=== PATIENT | female | born 1990 | race Caucasian/White ===

== ENCOUNTER 2016-03-22 13:47 | Emergency (ER) | payer OTHER ==
[2016-03-22 13:53] VITALS: TEMP 98.8; BMI 31.9
--- NOTE | 2016-03-22 16:33 | PDOC ---
History of Present Illness - General Chief Complaint: Chest Pain Stated Complaint: CHEST PAIN, ABD PAIN, SOB Time Seen by Provider: 03/22/16 14:57 History Source: Patient Exam Limitations: No Limitations - History of Present Illness Travel History: No Initial Comments: 03/22/16 16:33 25-year-old female presents to the ED with complaints of right upper quadrant pain associated with nausea dysuria, diarrhea, fever or chills. Patient states her glucose has been in the 200s and is unsure if this is pancreatitis versus a virus. Timing/Duration: reports: intermittent Quality: reports: moderate, cramping Abdominal Pain Onset Location: reports: RUQ Pain Radiation: reports: no radiation Activities at Onset: reports: none Aggravating Factors: improves with: Eating Alleviating Factors: improves with: None Past History - Past Medical History Allergies/Adverse Reactions: Allergies Allergy/AdvReac Type Severity Reaction Status Date / Time No Known Drug Allergies Allergy Verified 03/22/16 13:53 SEAFOOD Allergy Severe ANAPHYLAXIS Uncoded 03/22/16 13:53 Home Medications: Ambulatory Orders Albuterol Sulfate Inhaler - [Ventolin Hfa Inhaler -] 1 puff IH Q8H 03/22/16 Insulin Glargine,Hum.rec.anlog [Lantus Solostar PEN (NF)] 26 unit SQ DAILY 03/22 Insulin Lispro Protamin/Lispro [Humalog Mix 75-25 Kwikpen] 50 unit SQ BID Levothyroxine Sodium [Synthroid] 88 mcg PO DAILY 03/22/16 [place] Carbonate [Eskalith -] 600 mg PO BID 03/22/16 Metronidazole [Flagyl -] 500 mg PO TID 03/22/16 Phenytoin Na Extended [Dilantin -] 100 mg PO BID 03/22/16 Anemia: No Asthma: Yes Cancer: No Cardiac Disorders: Yes (RAPID HEARTBEAT HX) CVA: No COPD: No CHF: Yes Dementia: No Diabetes: Yes GI Disorders: Yes (h/o PANCREATITIS.) Disorders: No HTN: No Hypercholesterolemia: No Liver Disease: No Psychiatric Problems: Yes (anxiety, bipolar) Suicide Attempt (Hx): No Seizures: Yes Thyroid Disease: Yes - Surgical History Abdominal Surgery: No Appendectomy: No Cardiac Surgery: No Cholecystectomy: No Lung Surgery: No Neurologic Surgery: No Orthopedic Surgery: No - Family Disease History Family Disease History: Heart Disease: Grandparents - Reproductive History (#): 1 Para: 0 Cervical CA: No Dysfunctional Uterine Bleeding: No Ectopic : No Endometrial CA: No Polycystic Ovaries: No Tubal Ligation: No Spontaneous : 1 - Immunization History Immunization Up to Date: Yes - Psycho/Social/Smoking Cessation Hx Anxiety: Yes Suicidal Ideation: No Smoking Status: Yes Smoking History: Never smoked Have you smoked in the past 12 months: No Number of Cigarettes Smoked Daily: 2 If you are a former smoker, when did you quit?: 2011 'Breaking Loose' booklet given: 03/11/12 Hx Alcohol Use: No Drug/Substance Use Hx: No Substance Use Type: None Hx Substance Use Treatment: No Patient Lives Alone: No Lives with/in: parents Abd/GI Specific PMHX - Complaint Specific PMHX Pancreatitis: Yes Review of Systems - Review of Systems Able to Perform ROS?: Yes Constitutional: No: Symptoms Reported HEENTM: No: Symptoms Reported Respiratory: No: Symptoms reported Cardiac (ROS): No: Symptoms Reported ABD/GI: Yes: Abdominal cramping : No: Symptoms Reported Musculoskeletal: No: Symptoms Reported Integumentary: No: Symptoms Reported Neurological: No: Symptoms reported Endocrine: No: Symptoms Reported Hematologic/Lymphatic: No: Symptoms Reported *Physical Exam - Vital Signs Last Vital Signs Temp Pulse Resp BP Pulse Ox 98.8 F 90 20 114/65 98 03/22/16 13:51 03/22/16 13:51 03/22/16 13:51 03/22/16 13:51 03/22/16 13:51 - Physical Exam General Appearance: Yes: Nourished, Appropriately Dressed. No: Apparent Distress HEENT: positive: EOMI, MARISELA. negative: Pale Conjunctivae Neck: positive: Supple Respiratory/Chest: positive: Lungs Clear, Normal Breath Sounds. negative: Respiratory Distress, Accessory Muscle Use Cardiovascular: positive: Regular Rhythm, Regular Rate. negative: Murmur Gastrointestinal/Abdominal: positive: Soft, Tenderness (ruq tenderness) Musculoskeletal: negative: CVA Tenderness Extremity: positive: Normal Capillary Refill. negative: Pedal Edema Integumentary: positive: Normal Color, Warm, Moist Neurologic: positive: Normal Mood/Affect, Motor Strength 5/5 (ambulatory) ED Treatment Course - LABORATORY CBC & Chemistry Diagram: 03/22/16 16:20 03/22/16 16:20 Medical Decision Making - Medical Decision Making 03/22/16 16:29 Patient with right upper quadrant pain without fever, chills, nausea, change in urine pattern, or diarrhea. Patient has history of pancreatitis and feels in sleepy versus a virus. Patient ordered for labs include a CBC, comp, lipase, urine, urine . Patient is also requesting to eat at this time 03/22/16 17:00 Selected Entries 10/26/15 17:38 Temperature 98.3 F Pulse Rate 90 Respiratory 18 Rate Blood Pressure 109/72 O2 Sat by Pulse 99 Oximetry (%) Laboratory Tests 03/22/16 16:45 Urine Protein Negative Urine Blood 3+ H Ur Leukocyte Esterase Negative Urine HCG, Qual Negative Laboratory Tests 03/22/16 16:20 WBC 9.9 Hgb 13.3 Hct 41.5 Neutrophils % 68.8 Pt is currently menstrating Laboratory Tests 03/22/16 16:20 Sodium 134 L Chloride 102 Carbon Dioxide 25 Anion Gap 7 L BUN 13 Creatinine 0.6 Random Glucose 338 H* Calcium 9.1 Magnesium 1.9 AST 8 L D ALT 16 Alkaline Phosphatase 105 Total Protein 7.5 Albumin 3.4 Lipase 609 H Pt ate and requesting to leave to get her daughter. I explained to pt the elevated lipase and glucose but is refusing. Pt is aox 3 and cognitive of her decision made. Pt will sign AMA forms. *DC/Admit/Observation/Transfer Diagnosis at time of Disposition: Abdominal pain, Elevated glucose level, Elevated lipase - Discharge Dispostion Disposition: AGAINST MEDICAL ADVICE Condition at time of disposition: Unchanged/Unknown - Patient Instructions Printed Discharge Instructions: DI for Abdominal Pain-Adult, DI for Hyperglycemia -- Adult Additional Instructions: Please take your medications routinely and avoid spicy greasy food. Please follow-up with your PCP and discuss today's visit. Return to the emergency department if your symptoms worsen
--- NOTE | 2016-03-22 16:45 | PDOC ---
*Physical Exam - Vital Signs Last Vital Signs Temp Pulse Resp BP Pulse Ox 98.8 F 90 20 114/65 98 03/22/16 13:51 03/22/16 13:51 03/22/16 13:51 03/22/16 13:51 03/22/16 13:51 ED Treatment Course - LABORATORY CBC & Chemistry Diagram: 03/22/16 16:20 03/22/16 16:20 Medical Decision Making - Medical Decision Making 03/22/16 16:45 Pt seen by Midlevel Provider under my direct supervision Pt interviewed and examined Ancillary studies reviewed I agree with plan as outlined by Midlevel Provider *DC/Admit/Observation/Transfer Diagnosis at time of Disposition: Abdominal pain, Elevated glucose level, Elevated lipase - Discharge Dispostion Disposition: AGAINST MEDICAL ADVICE Condition at time of disposition: Unchanged/Unknown - Patient Instructions Printed Discharge Instructions: DI for Abdominal Pain-Adult, DI for Hyperglycemia -- Adult Additional Instructions: Please take your medications routinely and avoid spicy greasy food. Please follow-up with your PCP and discuss today's visit. Return to the emergency department if your symptoms worsen
[2016-03-22 16:48] LABS: BASOPHIL 0.7 % (0-2.0); EOSINOPHIL 2.1 % (0-4.5); MCH 25.9 pg (25.7-33.7); MEAN CELL VOLUME 80.9 fl (80-96); MEAN PLT VOLUME 9.4 fl (7.5-11.1); NEUTROPHILS 68.8 % (42.8-82.8); PLATELET COUNT 245 K/MM3 (134-434); RDW 13.1 % (11.6-15.6); WHITE BLOOD COUNT 9.9 K/mm3 (4.0-10.0)
[2016-03-22 16:54] LABS: URINE APPEARANCE CLEAR; URINE BILIRUBIN NEGATIVE (NEGATIVE); URINE COLOR STRAW; URINE GLUCOSE (UA) 3+ (NEGATIVE); URINE KETONE NEGATIVE (NEGATIVE); URINE LEUK ESTERASE NEGATIVE (NEGATIVE); URINE NITRITE NEGATIVE (NEGATIVE); URINE PROTEIN NEGATIVE (NEGATIVE); URINE UROBILINOGEN NEGATIVE E.U./dl (0.2-1.0)
[2016-03-22 16:58] LABS: URINE BLOOD 3+ (NEGATIVE)
[2016-03-22 16:59] LABS: URINE MUCUS RARE; URINE RBC 37 /hpf (0-3); URINE WBC 6 /hpf (3-5)
[2016-03-22 17:11] LABS: ALBUMIN 3.4 g/dl (3.4-5.0); ANION GAP 7 (8-16); CALCIUM 9.1 mg/dL (8.5-10.1); CO2 25 mmol/L (21-32); CREATININE 0.6 mg/dL (0.55-1.02); MAGNESIUM 1.9 mg/dL (1.8-2.4); SGOT/AST 8 U/L (15-37); SGPT/ALT 16 U/L (12-78)
[2016-03-22 17:12] LABS: ALK PHOS 105 U/L (45-117); BILIRUBIN,TOTAL 0.4 mg/dL (0.2-1.0); TOT PROT 7.5 g/dl (6.4-8.2)
[2016-03-22 17:20] LABS: GLUCOSE,RANDOM 338 mg/dL (74-106)
[2016-03-22 18:10] VITALS: BP 132/74; PULSE 91
== END 2016-03-22 18:09 | disposition left against medical advice (07) ==
LOC: JER 13:47
DX: E10.65 Type 1 diabetes mellitus with hyperglycemia (principal); Z79.4 Long term (current) use of insulin; R74.8 Abnormal levels of other serum enzymes; F41.9 Anxiety disorder, unspecified; F31.9 Bipolar disorder, unspecified; Z86.79 Personal history of other diseases of the circulatory system
CPT/HCPCS: 36415; 80053; 81003; 81015; 83690; 83735; 84703; 85025; 87086; 99283-25

== ENCOUNTER 2016-03-30 14:43 | Emergency (ER) | payer OTHER ==
[2016-03-30 14:53] VITALS: TEMP 99; BMI 28.8
[2016-03-30] MEDS ORDERED: SODIUM CHLORIDE 1,000 ML IV STA (15:11)
[2016-03-30] MEDS ORDERED: ONDANSETRON 4 MG/2 ML VIAL IVPUSH ONE (15:11)
[2016-03-30] MEDS ORDERED: ONDANSETRON 4 MG/2 ML VIAL ONE (15:15)
--- NOTE | 2016-03-30 15:18 | PDOC ---
History of Present Illness - General Chief Complaint: Pain Stated Complaint: Vomiting Time Seen by Provider: 03/30/16 14:57 History Source: Patient - History of Present Illness Timing/Duration: reports: constant Pain Radiation: reports: no radiation Past History - Past Medical History Allergies/Adverse Reactions: Allergies Allergy/AdvReac Type Severity Reaction Status Date / Time No Known Drug Allergies Allergy Verified 03/30/16 14:46 SEAFOOD Allergy Severe ANAPHYLAXIS Uncoded 03/30/16 14:46 Home Medications: Ambulatory Orders Albuterol Sulfate Inhaler - [Ventolin Hfa Inhaler -] 1 puff IH Q8H 03/22/16 Insulin Glargine,Hum.rec.anlog [Lantus Solostar PEN (NF)] 26 unit SQ DAILY 03/22 Insulin Lispro Protamin/Lispro [Humalog Mix 75-25 Kwikpen] 50 unit SQ BID Levothyroxine Sodium [Synthroid] 88 mcg PO DAILY 03/22/16 [place] Carbonate [Eskalith -] 600 mg PO BID 03/22/16 Metronidazole [Flagyl -] 500 mg PO TID 03/22/16 Phenytoin Na Extended [Dilantin -] 100 mg PO BID 03/22/16 Anemia: No Asthma: Yes Cancer: No Cardiac Disorders: Yes (RAPID HEARTBEAT HX) CVA: No COPD: No CHF: Yes Dementia: No Diabetes: Yes GI Disorders: Yes (h/o PANCREATITIS.) Disorders: No HTN: No Hypercholesterolemia: No Liver Disease: No Psychiatric Problems: Yes (anxiety, bipolar) Suicide Attempt (Hx): No Seizures: Yes Thyroid Disease: Yes - Surgical History Abdominal Surgery: No Appendectomy: No Cardiac Surgery: No Cholecystectomy: No Lung Surgery: No Neurologic Surgery: No Orthopedic Surgery: No - Family Disease History Family Disease History: Heart Disease: Grandparents - Reproductive History (#): 1 Para: 0 Cervical CA: No Dysfunctional Uterine Bleeding: No Ectopic : No Endometrial CA: No Polycystic Ovaries: No Tubal Ligation: No Spontaneous : 1 - Immunization History Immunization Up to Date: Yes - Psycho/Social/Smoking Cessation Hx Anxiety: Yes Suicidal Ideation: Yes Smoking Status: Yes Smoking History: Never smoked Have you smoked in the past 12 months: No Number of Cigarettes Smoked Daily: 2 If you are a former smoker, when did you quit?: 2011 Information on smoking cessation initiated: No 'Breaking Loose' booklet given: 03/11/12 Hx Alcohol Use: No Drug/Substance Use Hx: No Substance Use Type: None Hx Substance Use Treatment: No Abd/GI Specific PMHX - Complaint Specific PMHX Pancreatitis: Yes Review of Systems - Review of Systems Constitutional: No: Chills, Fever Respiratory: No: Shortness of Breath Cardiac (ROS): No: Chest Pain ABD/GI: Yes: Nausea, Vomiting. No: Constipated, Diarrhea : No: Dysuria Neurological: Yes: Seizure *Physical Exam - Vital Signs Last Vital Signs Temp Pulse Resp BP Pulse Ox 99 F 100 H 18 97/73 100 03/30/16 14:47 03/30/16 14:47 03/30/16 14:47 03/30/16 14:47 03/30/16 14:47 - Physical Exam General Appearance: Yes: Appropriately Dressed. No: Apparent Distress HEENT: positive: Normal Voice Neck: positive: Supple Respiratory/Chest: positive: Lungs Clear, Normal Breath Sounds. negative: Respiratory Distress Cardiovascular: positive: Regular Rate, S1, S2 Gastrointestinal/Abdominal: positive: Normal Bowel Sounds, Tender (minimal ttp to epigastrium, no ttp over RUQ), Soft. negative: Distended, Guarding Musculoskeletal: negative: CVA Tenderness Integumentary: positive: Dry, Warm Neurologic: positive: Fully Oriented, Alert, Abnormal Cranial NS ED Treatment Course - LABORATORY CBC & Chemistry Diagram: 03/30/16 15:30 03/30/16 15:30 Medical Decision Making - Medical Decision Making 03/30/16 15:14 25-year-old female, depression, bipolar, morbidly obese, insulin-dependent diabetes, seizures on meds, pancreatitis, presenting with multiple complaints today including seizure this a.m. typical of her usual seizures. Patient's states seizure happened while she was still in bed this am and woke up with urinary incontinence. Seizure was not witnessed. Patient states that at some point after seizure she began having multiple episodes of nausea and vomiting that is not consistent with her postictal phase. Denies hematochezia. Also complaining of vague abdominal pain and is unsure if the pain is similar to her pancreatitis. No acute change in bowel movements, dysuria, fever or chills. See exam Breakthrough seizure On dilantin and f/u with outside neuro -Basic labs including dilantin lvl N/v w/ upper abd pain Of note, pt was seen in ED ~9 days ago for abd pain, found to have lipase >600 but left AMA, also had BG>300 Tachycardia and hypotensive in ED, with minimal tenderness to palpation to epigastrium, non-tender over right upper quadrant -basic labs -zofran -IVF -reassess 03/30/16 15:22 03/30/16 17:06 Lipase greater than 700. Patient refusing to be admitted despite being aware of medical risks. Also told that that her Dilantin level is less than 2.5. Patient insists that she has been taking her medication as prescribed. Understands the risk of seizures if she is not compliant. Will discharge AGAINST MEDICAL ADVICE with strict instructions to follow-up with her doctors, including her neurologist. Patient aware that she can return to ED at any point to continue evaluation/admission. Vitals improved w/ IVF 03/30/16 17:11 *DC/Admit/Observation/Transfer Diagnosis at time of Disposition: Seizure disorder Pancreatitis, acute Qualifiers: Pancreatitis type: unspecified pancreatitis type Qualified Code(s): K85.9 - Acute pancreatitis, unspecified - Discharge Dispostion Disposition: AGAINST MEDICAL ADVICE Condition at time of disposition: Fair - Referrals Referrals: Mellisa Richardson MD [Primary Care Provider] - - Patient Instructions Printed Discharge Instructions: Acute Pancreatitis Additional Instructions: You have signed out AGAINST MEDICAL ADVICE and refused admission. You are aware that you can return to ER at any point to continue evaluation. Continue to take her medications as directed and follow-up with your doctors
[2016-03-30 15:43] LABS: BASOPHIL 0.9 % (0-2.0); EOSINOPHIL 2.4 % (0-4.5); MCH 26.3 pg (25.7-33.7); MCHC 32.7 g/dl (32.0-36.0); MEAN CELL VOLUME 80.3 fl (80-96); MEAN PLT VOLUME 8.3 fl (7.5-11.1); NEUTROPHILS 64.6 % (42.8-82.8); PLATELET COUNT 258 K/MM3 (134-434); RDW 13.1 % (11.6-15.6); WHITE BLOOD COUNT 9.9 K/mm3 (4.0-10.0)
[2016-03-30 16:17] LABS: ALBUMIN 3.4 g/dl (3.4-5.0); ALK PHOS 100 U/L (45-117); ANION GAP 8 (8-16); BILIRUBIN,TOTAL 0.3 mg/dL (0.2-1.0); CALCIUM 9.3 mg/dL (8.5-10.1); CO2 27 mmol/L (21-32); CREATININE 0.6 mg/dL (0.55-1.02); GLUCOSE,RANDOM 238 mg/dL (74-106); SGOT/AST 15 U/L (15-37); SGPT/ALT 20 U/L (12-78); TOT PROT 7.4 g/dl (6.4-8.2)
[2016-03-30 17:14] VITALS: BP 117/79; PULSE 78
== END 2016-03-30 17:47 | disposition left against medical advice (07) ==
LOC: JER 14:43
PROC: 3E033GC Introduction of Other Therapeutic Substance into Peripheral Vein, Percutaneous Approach (ICD-10-PCS; principal; 2016-03-30)
DX: K85.80 Other acute pancreatitis without necrosis or infection (principal); G40.909 Epilepsy, unspecified, not intractable, without status epilepticus; E10.9 Type 1 diabetes mellitus without complications; Z79.4 Long term (current) use of insulin; F31.89 Other bipolar disorder
CPT/HCPCS: 36415; 80053; 80185; 83605; 83690; 85025; 96374; 99283-25

== ENCOUNTER 2016-04-09 18:58 | Emergency (ER) | payer OTHER ==
[2016-04-09 19:23] VITALS: BP 103/63; PULSE 84; TEMP 98; BMI 33.1
== END 2016-04-09 20:23 | disposition left against medical advice (07) ==
LOC: JERFT 18:58 → JER 18:58 → JERFT 20:23
DX: Z53.21 Procedure and treatment not carried out due to patient leaving prior to being seen by health care provider (principal)
CPT/HCPCS: 99281-25

== ENCOUNTER 2016-04-12 14:14 | Emergency (ER) | payer OTHER ==
[2016-04-12 14:31] VITALS: BP 115/46; PULSE 91; TEMP 98; BMI 33.1
--- NOTE | 2016-04-12 15:23 | PDOC ---
History of Present Illness <Alvin Moyer - Last Filed: 04/12/16 15:21> - History of Present Illness Initial Comments: 04/12/16 15:34 The patient is a 25 year old female with a past medical hx of asthma, epilepsy ( on Dilantin) who presents to the ED for evaluation of a seizure today. The patient states she has been compliant with her Dilantin. She states she feels weak after the seizure episode and came to the ED for further evaluation. The patient denies chest pain, SOB The patient denies fever, chills The patient denies nausea, vomiting, diarrhea Allergies:NKDA PCP: Dr. Trey Richardson Social: No toxic habits reported Surgical: None reported <Perla Lebron - Last Filed: 04/12/16 16:53> <Blaine Mandel - Last Filed: 04/12/16 19:29> - General Chief Complaint: Seizure Stated Complaint: SEIZURE Past History - Past Medical History Anemia: No Asthma: Yes Cancer: No Cardiac Disorders: Yes (RAPID HEARTBEAT HX) CVA: No COPD: No CHF: Yes Dementia: No Diabetes: Yes GI Disorders: Yes (h/o PANCREATITIS.) Disorders: No HTN: No Hypercholesterolemia: No Liver Disease: No Psychiatric Problems: Yes (anxiety, bipolar) Suicide Attempt (Hx): No Seizures: Yes Thyroid Disease: Yes - Surgical History Abdominal Surgery: No Appendectomy: No Cardiac Surgery: No Cholecystectomy: No Lung Surgery: No Neurologic Surgery: No Orthopedic Surgery: No - Family Disease History Family Disease History: Heart Disease: Grandparents - Reproductive History (#): 1 Para: 0 Cervical CA: No Dysfunctional Uterine Bleeding: No Ectopic : No Endometrial CA: No Polycystic Ovaries: No Therapeutic (s) & number: No Tubal Ligation: No Spontaneous : 1 - Immunization History Immunization Up to Date: Yes - Psycho/Social/Smoking Cessation Hx Anxiety: Yes Suicidal Ideation: No Smoking Status: Yes Smoking History: Former smoker Have you smoked in the past 12 months: No Number of Cigarettes Smoked Daily: 0 If you are a former smoker, when did you quit?: 2011 Information on smoking cessation initiated: No 'Breaking Loose' booklet given: 03/11/12 Hx Alcohol Use: No Drug/Substance Use Hx: No Substance Use Type: None Hx Substance Use Treatment: No <Alvin Moyer - Last Filed: 04/12/16 15:21> <Perla Lebron - Last Filed: 04/12/16 16:53> <MinisterioBlaine - Last Filed: 04/12/16 19:29> - Past Medical History Allergies/Adverse Reactions: Allergies Allergy/AdvReac Type Severity Reaction Status Date / Time No Known Drug Allergies Allergy Verified 04/12/16 14:27 SEAFOOD Allergy Severe ANAPHYLAXIS Uncoded 04/12/16 14:27 Home Medications: Ambulatory Orders Albuterol Sulfate Inhaler - [Ventolin Hfa Inhaler -] 1 puff IH Q8H 03/22/16 Insulin Glargine,Hum.rec.anlog [Lantus Solostar PEN (NF)] 26 unit SQ DAILY 03/22 Insulin Lispro Protamin/Lispro [Humalog Mix 75-25 Kwikpen] 50 unit SQ BID Levothyroxine Sodium [Synthroid] 88 mcg PO DAILY 03/22/16 [place] Carbonate [Eskalith -] 600 mg PO BID 03/22/16 Phenytoin Na Extended [Dilantin -] 100 mg PO BID 03/22/16 Review of Systems - Review of Systems Able to Perform ROS?: Yes Comments:: 04/12/16 15:35 CONSTITUTIONAL: +Weakness. Absent: fever, chills, diaphoresis, malaise, loss of appetite HEENT: Absent: rhinorrhea, nasal congestion, throat pain, throat swelling, difficulty swallowing, mouth swelling, ear pain, eye pain, visual Changes CARDIOVASCULAR: Absent: chest pain, syncope, palpitations, irregular heart rate, lightheadedness , peripheral edema RESPIRATORY: Absent: cough, shortness of breath, dyspnea with exertion, orthopnea, wheezing, stridor, hemoptysis GASTROINTESTINAL: Absent: abdominal pain, abdominal distension, nausea, vomiting, diarrhea, constipation, melena, hematochezia GENITOURINARY: Absent: dysuria, frequency, urgency, hesitancy, hematuria, flank pain, genital pain MUSCULOSKELETAL: Absent: myalgia, arthralgia, joint swelling SKIN: Absent: rash, itching, pallor HEMATOLOGIC/IMMUNOLOGIC: Absent: easy bleeding, easy bruising, lymphadenopathy, frequent infections ENDOCRINE: Absent: unexplained weight gain, unexplained weight loss, heat intolerance, cold intolerance NEUROLOGIC: Absent: headache, focal weakness or paresthesias, dizziness, unsteady gait, seizure, mental status changes, bladder or bowel incontinence PSYCHIATRIC: Absent: anxiety, depression, suicidal or homicidal ideation, hallucinations. <Perla Lebron - Last Filed: 04/12/16 16:53> *Physical Exam - Vital Signs Last Vital Signs Temp Pulse Resp BP Pulse Ox 98 F 91 H 18 115/46 97 04/12/16 14:28 04/12/16 14:28 04/12/16 14:28 04/12/16 14:28 04/12/16 14:28 <Alvin Moyer - Last Filed: 04/12/16 15:21> - Vital Signs Last Vital Signs Temp Pulse Resp BP Pulse Ox 98 F 91 H 18 115/46 97 04/12/16 14:28 04/12/16 14:28 04/12/16 14:28 04/12/16 14:28 04/12/16 14:28 - Physical Exam Comments: 04/12/16 15:36 GENERAL: Well developed, well nourished. Awake and alert. In no acute distress. HEENT: Normocephalic, atraumatic. PERRLA, EOMI. No conjunctival pallor. Sclera are non- icteric. Moist mucous membranes. Oropharynx is clear. NECK: Supple. Full ROM. No JVD. Carotid pulses 2+ and symmetric, without bruits. No thyromegaly. No lymphadenopathy. CARDIOVASCULAR: Regular rate and rhythm. No murmurs, rubs, or gallops. Distal pulses are 2+ and symmetric. PULMONARY: No evidence of respiratory distress. Lungs clear to auscultation bilaterally. No wheezing, rales or rhonchi. ABDOMINAL: Soft. Non-tender. Non-distended. No rebound or guarding. No organomegaly. Normoactive bowel sounds. MUSCULOSKELETAL Normal range of motion at all joints. No bony deformities or tenderness. No CVA tenderness. EXTREMITIES: No cyanosis. No clubbing. No edema. No calf tenderness. SKIN: Warm and dry. Normal capillary refill. No rashes. No jaundice. NEUROLOGICAL: Alert, awake, appropriate. Cranial nerves 2-12 intact. No deficits to light touch and temperature in face, upper extremities and lower extremities. No motor deficits in the in face, upper extremities and lower extremities.Normal speech. PSYCHIATRIC: Cooperative. Good eye contact. Appropriate mood and affect. <Perla Lebron - Last Filed: 04/12/16 16:53> - Vital Signs Last Vital Signs Temp Pulse Resp BP Pulse Ox 98 F 91 H 18 115/46 97 04/12/16 14:28 04/12/16 14:28 04/12/16 14:28 04/12/16 14:28 04/12/16 14:28 <Blaine Mandel - Last Filed: 04/12/16 19:29> ED Treatment Course - LABORATORY CBC & Chemistry Diagram: 04/12/16 16:06 04/12/16 16:06 <FavioRui caceresPerla - Last Filed: 04/12/16 16:53> - LABORATORY CBC & Chemistry Diagram: 04/12/16 16:06 04/12/16 16:06 - ADDITIONAL ORDERS Additional order review: Laboratory Results 04/12/16 04/12/16 04/12/16 16:10 16:06 16:06 Sodium 134 L Potassium 3.8 Chloride 97 L Carbon Dioxide 25 Anion Gap 12 BUN 12 D Creatinine 0.7 Creat Clearance w eGFR > 60 Random Glucose 431 H* D Calcium 10.0 Total Bilirubin 0.5 D AST 6 L D ALT 14 D Alkaline Phosphatase 109 Total Protein 8.1 Albumin 3.8 Serum , Qual Urine Color Urine Appearance Urine pH Ur Specific [place] Urine Protein Urine Glucose (UA) Urine Ketones Urine Blood Urine Nitrite Urine Bilirubin Urine Urobilinogen Ur Leukocyte Esterase Opiates Screen Negative Methadone Screen Negative Barbiturate Screen Negative Phenytoin < 2.5 L Phencyclidine Screen Negative Ur Amphetamines Screen Negative MDMA (Ecstasy) Screen Negative Benzodiazepines Screen Negative Cocaine Screen Negative U Marijuana (THC) Screen Negative Alcohol, Quantitative < 5.0 04/12/16 16:06 Sodium Potassium Chloride Carbon Dioxide Anion Gap BUN Creatinine Creat Clearance w eGFR Random Glucose Calcium Total Bilirubin AST ALT Alkaline Phosphatase Total Protein Albumin Serum , Qual Negative Urine Color Straw Urine Appearance Clear Urine pH 6.0 Ur Specific [place] 1.021 Urine Protein Negative Urine Glucose (UA) 3+ H Urine Ketones Trace H Urine Blood Negative Urine Nitrite Negative Urine Bilirubin Negative Urine Urobilinogen Negative Ur Leukocyte Esterase Negative Opiates Screen Methadone Screen Barbiturate Screen Phenytoin Phencyclidine Screen Ur Amphetamines Screen MDMA (Ecstasy) Screen Benzodiazepines Screen Cocaine Screen U Marijuana (THC) Screen Alcohol, Quantitative 04/12/16 16:06 RBC 5.34 H MCV 80.3 MCHC 33.1 RDW 13.7 MPV 8.9 Neutrophils % 68.6 Lymphocytes % 25.1 Monocytes % 4.9 Eosinophils % 0.9 Basophils % 0.5 - Medications Given in the ED: ED Medications Discontinued Medications Generic Name Dose Route Start Last Admin Trade Name Candis PRN Reason Stop Dose Admin Insulin Human Regular 5 units 04/12/16 16:44 04/12/16 17:36 Novolin R Vial *Ivpush / Er / Icu Only* IVPUSH 04/12/16 16:45 5 unit ONCE ONE Administration Phenytoin Sodium 200 mg 04/12/16 17:58 04/12/16 18:02 Dilantin - PO 04/12/16 17:59 200 mg ONCE ONE Administration <Blaine Mandel - Last Filed: 04/12/16 19:29> *DC/Admit/Observation/Transfer <Alvin Moyer - Last Filed: 04/12/16 15:21> - Attestations Scribe Attestion: 04/12/16 15:34 Documentation prepared by Perla Lebron, acting as medical planner for Alvin Moyer MD, /DO. <Perla Lebron - Last Filed: 04/12/16 16:53> <Blaine Mandel - Last Filed: 04/12/16 19:29> Diagnosis at time of Disposition: Seizure disorder, Seizure, Elevated glucose level - Discharge Dispostion Disposition: HOME Condition at time of disposition: Stable - Referrals Referrals: Trey Richardson MD [Primary Care Provider] - - Patient Instructions Printed Discharge Instructions: DI for Seizure Disorder -- Adult, DI for Hyperglycemia -- Adult
[2016-04-12 16:10] LABS: BASOPHIL 0.5 % (0-2.0); EOSINOPHIL 0.9 % (0-4.5); MCH 26.6 pg (25.7-33.7); MCHC 33.1 g/dl (32.0-36.0); MEAN CELL VOLUME 80.3 fl (80-96); MEAN PLT VOLUME 8.9 fl (7.5-11.1); NEUTROPHILS 68.6 % (42.8-82.8); PLATELET COUNT 224 K/MM3 (134-434); RDW 13.7 % (11.6-15.6); WHITE BLOOD COUNT 11.3 K/mm3 (4.0-10.0)
[2016-04-12 16:31] LABS: ALCOHOL < 5.0 mg/dl (0-5)
[2016-04-12 16:33] LABS: URINE APPEARANCE CLEAR; URINE BILIRUBIN NEGATIVE (NEGATIVE); URINE BLOOD NEGATIVE (NEGATIVE); URINE COLOR STRAW; URINE GLUCOSE (UA) 3+ (NEGATIVE); URINE KETONE TRACE (NEGATIVE); URINE LEUK ESTERASE NEGATIVE (NEGATIVE); URINE NITRITE NEGATIVE (NEGATIVE); URINE PROTEIN NEGATIVE (NEGATIVE); URINE UROBILINOGEN NEGATIVE E.U./dl (0.2-1.0)
[2016-04-12 16:35] LABS: ALBUMIN 3.8 g/dl (3.4-5.0); ALK PHOS 109 U/L (45-117); ANION GAP 12 (8-16); BILIRUBIN,TOTAL 0.5 mg/dL (0.2-1.0); CO2 25 mmol/L (21-32); CREATININE 0.7 mg/dL (0.55-1.02); SGOT/AST 6 U/L (15-37); SGPT/ALT 14 U/L (12-78); TOT PROT 8.1 g/dl (6.4-8.2)
[2016-04-12 16:44] LABS: GLUCOSE,RANDOM 431 mg/dL (74-106)
[2016-04-12] MEDS ORDERED: INSULIN REGULAR HUMAN 100 UNITS/ML *VIAL IVPUSH ONE (16:44)
[2016-04-12 16:45] LABS: URINE MARIJUANA THC NEGATIVE ng/ml (CUTOFF=50)
[2016-04-12] MEDS ORDERED: INSULIN REGULAR HUMAN 100 UNITS/ML *VIAL ONE (17:34)
[2016-04-12] MEDS ORDERED: PHENYTOIN NA EXTENDED 100 MG CAPSULE (FP) PO ONE (17:58)
[2016-04-12] MEDS ORDERED: PHENYTOIN NA EXTENDED 100 MG CAPSULE (FP) ONE (17:59)
== END 2016-04-12 18:12 | disposition home or self-care (01) ==
LOC: JER 14:14
PROC: 3E033VG Introduction of Insulin into Peripheral Vein, Percutaneous Approach (ICD-10-PCS; principal; 2016-04-12)
DX: E10.65 Type 1 diabetes mellitus with hyperglycemia (principal); G40.909 Epilepsy, unspecified, not intractable, without status epilepticus; Z79.4 Long term (current) use of insulin; F41.8 Other specified anxiety disorders; F31.9 Bipolar disorder, unspecified; E07.9 Disorder of thyroid, unspecified
CPT/HCPCS: 36415; 80053; 80178; 80185; 80307; 81003; 84703; 85025; 87086; 99282-25

== ENCOUNTER 2016-05-23 19:41 | Emergency (ER) | payer OTHER ==
[2016-05-23 19:53] VITALS: BP 119/44; PULSE 77; TEMP 97.9; BMI 32.8
--- NOTE | 2016-05-23 20:51 | PDOC ---
History of Present Illness - General History Source: Patient, Old Records Exam Limitations: No Limitations - History of Present Illness Initial Comments: 05/23/16 21:17 The patient is a 25 year old female with past medical history of asthma and epilepsy who presents to the emergency department for valuation of seizures today. The patient states that she was in the kitchen with her mother when she began to feel lightheaded, migraine, and was seeing stars before seizing. The patient states that she partially blacked out and is unsure whether or not she hit her head. The patient reports associated dizziness and limited range of motion of her neck. The patient notes that her Dilantin was recently increased to 3 times per day by diabetes doctor, Dr. Bee. The patient notes that her LMP was 03/22/16 and requested a test. PCP: Dr. Trey Richardson [phone] <Oswaldo Stovall - Last Filed: 05/23/16 22:39> - General History Source: Patient Exam Limitations: No Limitations <Jing Licona - Last Filed: 05/25/16 08:09> - General Chief Complaint: Seizure Stated Complaint: SEIZURE Time Seen by Provider: 05/23/16 19:57 Past History <Oswaldo Stovall - Last Filed: 05/23/16 22:39> - Past Medical History Anemia: No Asthma: Yes Cancer: No Cardiac Disorders: Yes (RAPID HEARTBEAT HX) CVA: No COPD: No CHF: Yes Dementia: No Diabetes: Yes GI Disorders: Yes (h/o PANCREATITIS.) Disorders: No HTN: No Hypercholesterolemia: No Liver Disease: No Psychiatric Problems: Yes (anxiety, bipolar) Suicide Attempt (Hx): No Seizures: Yes Thyroid Disease: Yes - Surgical History Abdominal Surgery: No Appendectomy: No Cardiac Surgery: No Cholecystectomy: No Lung Surgery: No Neurologic Surgery: No Orthopedic Surgery: No - Family Disease History Family Disease History: Heart Disease: Grandparents - Reproductive History (#): 1 Para: 0 Cervical CA: No Dysfunctional Uterine Bleeding: No Ectopic : No Endometrial CA: No Polycystic Ovaries: No Therapeutic (s) & number: No Tubal Ligation: No Spontaneous : 1 - Immunization History Immunization Up to Date: Yes - Psycho/Social/Smoking Cessation Hx Anxiety: Yes Suicidal Ideation: No Smoking Status: Yes Smoking History: Never smoked Have you smoked in the past 12 months: No Number of Cigarettes Smoked Daily: 0 If you are a former smoker, when did you quit?: 2011 'Breaking Loose' booklet given: 03/11/12 Hx Alcohol Use: No Drug/Substance Use Hx: No Substance Use Type: None Hx Substance Use Treatment: No <Jing Licona - Last Filed: 05/25/16 08:09> - Past Medical History Allergies/Adverse Reactions: Allergies Allergy/AdvReac Type Severity Reaction Status Date / Time No Known Drug Allergies Allergy Verified 05/23/16 19:49 SEAFOOD Allergy Severe ANAPHYLAXIS Uncoded 05/23/16 19:49 Home Medications: Ambulatory Orders Albuterol Sulfate Inhaler - [Ventolin Hfa Inhaler -] 1 puff IH Q8H 03/22/16 Insulin Lispro Protamin/Lispro [Humalog Mix 75-25 Kwikpen] 50 unit SQ BID Levothyroxine Sodium [Synthroid] 88 mcg PO DAILY 03/22/16 [place] Carbonate [Eskalith -] 600 mg PO BID 03/22/16 Phenytoin Na Extended [Dilantin -] 100 mg PO TID 03/22/16 Clonazepam [Klonopin -] 0.5 mg PO BID PRN 05/23/16 Nitrofurantoin Monohyd/M-Cryst [Macrobid -] 100 mg PO BID #14 capsule 05/23/16 Review of Systems - Review of Systems Able to Perform ROS?: Yes Comments:: 05/23/16 21:17 GENERAL/CONSTITUTIONAL: No: fever, chills, weakness, loss of appetite. HEAD, EYES, EARS, NOSE AND THROAT: No: change in vision, ear pain, discharge, sore throat, throat swelling. CARDIOVASCULAR: Yes: Lightheadedness, dizziness, syncope No: chest pain, palpitations. RESPIRATORY: No: cough, shortness of breath, wheezing, hemoptysis, stridor. GASTROINTESTINAL: No: nausea, vomiting, abdominal cramping, diarrhea, rectal bleeding, constipation. GENITOURINARY: No: dysuria, hematuria, frequency, urgency, flank pain. MUSCULOSKELETAL: No: back pain, neck pain, joint pain, muscle swelling or pain SKIN: No: lesions, pallor, rash or easy bruising. NEUROLOGIC: Yes: Seizure, migraine No: vertigo, paresthesias, weakness ENDOCRINE: No: unexplained weight gain or loss HEMATOLOGIC/LYMPHATIC: No: anemia, easy bleeding, swelling nodes <Oswaldo Stovall - Last Filed: 05/23/16 22:39> *Physical Exam - Vital Signs Last Vital Signs Temp Pulse Resp BP Pulse Ox 97.9 F 77 18 119/44 98 05/23/16 19:51 05/23/16 19:51 05/23/16 19:51 05/23/16 19:51 05/23/16 19:51 <Oswaldo Stovall - Last Filed: 05/23/16 22:39> - Vital Signs Last Vital Signs Temp Pulse Resp BP Pulse Ox 97.9 F 77 18 119/44 98 05/23/16 19:51 05/23/16 19:51 05/23/16 19:51 05/23/16 19:51 05/23/16 19:51 <Jing Licona - Last Filed: 05/25/16 08:09> ED Treatment Course - LABORATORY CBC & Chemistry Diagram: 05/23/16 21:20 - ADDITIONAL ORDERS Additional order review: Laboratory Results 05/23/16 20:51 Urine Color Yellow Urine Appearance Cloudy Urine pH 8.0 D Ur Specific [place] 1.015 Urine Protein Negative Urine Glucose (UA) 3+ H Urine Ketones 1+ H Urine Blood 1+ H Urine Nitrite Negative Urine Bilirubin Negative Urine Urobilinogen Negative Ur Leukocyte Esterase 3+ H Urine HCG, Qual Negative - RADIOLOGY Radiograph Interpretation: 05/23/16 22:39 CT scan of the brain without intravenous contrast. Compared to prior CT scan of the head dated 02/08/2016 The ventricles and basal cisterns appear unremarkable. 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 Otherwise, no gross mass lesion, focal acute infarct or intracranial hemorrhage is identified. Visualized paranasal sinuses and mastoid air cells are well-aerated. The calvarium is intact. IMPRESSION: No evidence of a focal intracranial lesion or hemorrhage is seen. Reported By: Cami Choudhary MD The calvarium is intact. CT scan of the cervical spine without intravenous contrast Coronal and sagittal reconstruction images were obtained. There is straightening of the cervical spine. Fusion of C6 and C7 vertebral bodies and posterior elements. No gross fracture, subluxation or prevertebral soft tissue swelling is seen. No jumped facets are identified. C5-C6 mild anterior spondylosis. Visualized portion of the airway appears unremarkable. There are multiple subcentimeter bilateral lateral neck as well as bilateral infraclavicular lymph nodes. The tonsils are slightly enlarged. Lung windows at the thoracic inlet appear unremarkable. IMPRESSION: The alignment is satisfactory. No gross fracture or subluxation is seen. Fusion of C6 and C7 vertebral bodies. Multiple bilateral lateral neck as well as bilateral lower neck, supra and infraclavicular lymph nodes are present measuring less than 1 cm in there shortest axis which are nonspecific. Correlate clinically for further evaluation. Reported By: Cami Choudhary MD <Oswaldo Stovall - Last Filed: 05/23/16 22:39> - LABORATORY CBC & Chemistry Diagram: 05/23/16 21:20 - RADIOLOGY Radiology Studies Ordered: Category Date Time Status CERVICAL SPINE CT W/O CONTR [CT] Stat CT Scan 05/23/16 20:[address] WITHOUT CONTRAST [CT] Stat CT Scan 05/23/16 20:38 Ordered <Jing Licona - Last Filed: 05/25/16 08:09> Medical Decision Making - Medical Decision Making 05/23/16 20:51 I, Dr. Jing Licona, attest that this document has been prepared under my direction and personally reviewed by me in its entirety. I further attest, that it accurately reflects all work, treatment, procedures and medical decision -making performed by me. 05/23/16 22:27 This is a 25-year-old female with a history of insulin-dependent diabetes, seizure disorder who presents emergency department again for recurrent seizure. Patient states her Dilantin dose was increased recently after a seizure in April. Pt has a neurologist does not remember the name she has an up coming appointment States compliance with her medications I have received confirmation from her that he is giving her all of her medications Pt states seizure was: Generalize tonic clonic Pt had bladder incontinence No bowel incontinence No tongue biting Pt states that she had an aura, bright lights and colors Laboratory Tests 05/23/16 05/23/16 05/23/16 20:51 21:20 21:20 Sodium 137 BUN 6 L D Creatinine 0.5 L D Random Glucose 289 H D Ur Leukocyte Esterase 3+ H Urine RBC 19 Urine WBC 231 Phenytoin < 2.5 L 05/23/16 22:31 Will start dilantin load given pt Dilantin level is low (I am not clear why this is so low given pt compliance? pt will likely need to increase dose) Will discharge to home Pt has a follow up on June 04 with neurology I have asked her to follow up within the next 2 days with Rohit to review her medications Clinical Impression: seizure (h/o seizure), subtherapeutic medication <Jing Licona - Last Filed: 05/25/16 08:09> *DC/Admit/Observation/Transfer - Attestations Scribe Attestion: 05/23/16 21:18 Documentation prepared by Oswaldo Stovall, acting as electromedical equipment technician for Jing Licona MD. <Oswaldo Stovall - Last Filed: 05/23/16 22:39> - Discharge Dispostion Admit: No <Jing Licona - Last Filed: 05/25/16 08:09> Diagnosis at time of Disposition: Seizure - Discharge Dispostion Disposition: HOME Condition at time of disposition: Improved - Prescriptions Prescriptions: Nitrofurantoin Monohyd/M-Cryst [Macrobid -] 100 mg PO BID #14 capsule - Referrals Referrals: Trey Richardson MD [Primary Care Provider] - Xander Bee [Non Staff, Medical] - - Patient Instructions Printed Discharge Instructions: DI for Seizure Disorder -- Adult
[2016-05-23 21:05] LABS: URINE APPEARANCE CLOUDY; URINE BILIRUBIN NEGATIVE (NEGATIVE); URINE COLOR YELLOW; URINE GLUCOSE (UA) 3+ (NEGATIVE); URINE KETONE 1+ (NEGATIVE); URINE NITRITE NEGATIVE (NEGATIVE); URINE PROTEIN NEGATIVE (NEGATIVE); URINE UROBILINOGEN NEGATIVE E.U./dl (0.2-1.0)
[2016-05-23 21:08] LABS: URINE BLOOD 1+ (NEGATIVE); URINE LEUK ESTERASE 3+ (NEGATIVE)
[2016-05-23 21:12] LABS: URINE BACTERIA RARE /hpf (NONE SEEN); URINE RBC 19 /hpf (0-3); URINE WBC 231 /hpf (3-5)
[2016-05-23 21:56] LABS: ANION GAP 6 (8-16); CALCIUM 9.8 mg/dL (8.5-10.1); CO2 30 mmol/L (21-32); CREATININE 0.5 mg/dL (0.55-1.02); GLUCOSE,RANDOM 289 mg/dL (74-106)
[2016-05-23] MEDS ORDERED: PHENYTOIN NA EXTENDED 100 MG CAPSULE (FP) PO ONE (22:29)
[2016-05-23] MEDS ORDERED: PHENYTOIN NA EXTENDED 100 MG CAPSULE (FP) ONE (22:43)
== END 2016-05-23 22:49 | disposition home or self-care (01) ==
LOC: JER 19:41
DX: R56.9 Unspecified convulsions (principal); I50.9 Heart failure, unspecified; F41.9 Anxiety disorder, unspecified; F31.9 Bipolar disorder, unspecified; E07.9 Disorder of thyroid, unspecified; E11.9 Type 2 diabetes mellitus without complications; J45.909 Unspecified asthma, uncomplicated; R00.9 Unspecified abnormalities of heart beat; Z87.891 Personal history of nicotine dependence
CPT/HCPCS: 36415; 70450-TC; 72125-TC; 80048; 80185; 81003; 81015; 82009; 84703; 99281-25

== ENCOUNTER 2016-05-31 21:20 | Emergency (ER) | payer OTHER ==
[2016-05-31 21:28] VITALS: BP 144/73; PULSE 65; TEMP 98.1; BMI 32.6
[2016-05-31] MEDS ORDERED: TETRACAINE 0.5% OPHTH SOLN 2 ML BOTTLE ONE (22:23)
[2016-05-31] MEDS ORDERED: TETRACAINE 0.5% HCL 0.6ML DROPPER.BOTTLE OD ONE (22:50)
[2016-05-31] MEDS ORDERED: ERYTHROMYCIN 0.5% OPHTHALMIC OINTMENT 3.5 GM TUBE OS ONE (22:52)
[2016-05-31] MEDS ORDERED: TETRACAINE 0.5% HCL 0.6ML DROPPER.BOTTLE OS ONE (22:53)
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
== END 2016-05-31 23:19 | disposition home or self-care (01) ==
LOC: JERFT 21:20
DX: S05.02XA Injury of conjunctiva and corneal abrasion without foreign body, left eye, initial encounter (principal); Y04.2XXA Assault by strike against or bumped into by another person, initial encounter; Y93.89 Activity, other specified; Y92.098 Other place in other non-institutional residence as the place of occurrence of the external cause; Y07.410 Brother, perpetrator of maltreatment and neglect; E10.9 Type 1 diabetes mellitus without complications; Z79.4 Long term (current) use of insulin; I50.9 Heart failure, unspecified; F41.8 Other specified anxiety disorders; F32.9 Major depressive disorder, single episode, unspecified; E03.9 Hypothyroidism, unspecified
CPT/HCPCS: 84703; 99281-25

== ENCOUNTER 2016-06-07 14:51 | Inpatient (IN) | payer OTHER ==
--- NOTE | 2016-06-07 14:53 | PDOC ---
Rapid Medical Evaluation Time Seen by Provider: 06/07/16 14:53 Medical Evaluation: Allergies Allergy/AdvReac Type Severity Reaction Status Date / Time No Known Drug Allergies Allergy Verified 05/31/16 21:26 SEAFOOD Allergy Severe ANAPHYLAXIS Uncoded 05/31/16 21:26 06/07/16 14:53 25 year old female with a history of IDDM and admissions for DKA, asthma, CHF, pancreatitis, hypothyroidism, bipolar disorder, and seizure disorder presenting with epigastric pain, nausea/vomiting, and one seizure today. States abdominal symptoms are reminiscent of prior episodes of pancreatitis. V/s unremarkable. -UA/pgu -Will defer sending labs from E as patient with difficult IV access/wish to avoid multiple sticks.
[2016-06-07] MEDS ORDERED: SODIUM CHLORIDE 1,000 ML IV STA (15:08)
[2016-06-07 15:25] LABS: URINE APPEARANCE CLEAR; URINE BILIRUBIN NEGATIVE (NEGATIVE); URINE COLOR STRAW; URINE GLUCOSE (UA) 3+ (NEGATIVE); URINE KETONE TRACE (NEGATIVE); URINE NITRITE NEGATIVE (NEGATIVE); URINE PROTEIN NEGATIVE (NEGATIVE); URINE UROBILINOGEN NEGATIVE E.U./dl (0.2-1.0)
[2016-06-07 15:37] LABS: URINE BLOOD 2+ (NEGATIVE); URINE LEUK ESTERASE 3+ (NEGATIVE)
[2016-06-07 15:45] LABS: URINE BACTERIA RARE /hpf (NONE SEEN); URINE RBC 27 /hpf (0-3); URINE WBC 28 /hpf (3-5)
[2016-06-07] MEDS ORDERED: ONDANSETRON 4 MG/2 ML VIAL IVPB ONE (15:45)
[2016-06-07] MEDS ORDERED: ACETAMINOPHEN 1000 MG/100 ML VIAL (NON FORMULARY) IVPB ONE (15:45)
--- NOTE | 2016-06-07 15:52 | PDOC ---
[id number] is a 25 year old female with a past medical hx of IDDM, asthma, CHF , pancreatitis, hypothyroidism, bipolar disorder, and seizure disorder (on Dilantin) who presents to the ED complaining of epigastric pain and 1 seizure today. She reports associated nausea. She states her abdominal symptoms are reminiscent of prior episodes of pancreatitis. The patient reports she has been unable to eat secondary to her symptoms. The patient reports she has been compliant with her seizure medication but is having frequent seizures. The patient denies fever, chills, chest pain, SOB, diarrhea, vomiting. <Perla Lebron - Last Filed: 06/07/16 15:57> <Simona Farah - Last Filed: 06/07/16 20:35> - General History Source: Patient Exam Limitations: No Limitations <Clay Verde - Last Filed: 06/12/16 08:03> - General Chief Complaint: Seizure Stated Complaint: SEIZURE/ABDOMINAL PAIN Time Seen by Provider: 06/07/16 14:53 Past History <Perla Lebron - Last Filed: 06/07/16 15:57> <Simona Farah - Last Filed: 06/07/16 20:35> - Past Medical History Anemia: No Asthma: Yes Cancer: No Cardiac Disorders: Yes (RAPID HEARTBEAT HX) CVA: No COPD: No CHF: Yes Dementia: No Diabetes: Yes GI Disorders: Yes (h/o PANCREATITIS.) Disorders: No HTN: No Hypercholesterolemia: No Liver Disease: No Psychiatric Problems: Yes (anxiety, bipolar) Suicide Attempt (Hx): No Seizures: Yes Thyroid Disease: Yes - Surgical History Abdominal Surgery: No Appendectomy: No Cardiac Surgery: No Cholecystectomy: No Lung Surgery: No Neurologic Surgery: No Orthopedic Surgery: No - Family Disease History Family Disease History: Heart Disease: Grandparents - Reproductive History (#): 1 Para: 0 Cervical CA: No Dysfunctional Uterine Bleeding: No Ectopic : No Endometrial CA: No Polycystic Ovaries: No Therapeutic (s) & number: No Tubal Ligation: No Spontaneous : 1 - Immunization History Immunization Up to Date: Yes - Psycho/Social/Smoking Cessation Hx Anxiety: Yes Suicidal Ideation: No Smoking Status: Yes Smoking History: Never smoked Have you smoked in the past 12 months: No Number of Cigarettes Smoked Daily: 0 If you are a former smoker, when did you quit?: 2011 'Breaking Loose' booklet given: 03/11/12 Hx Alcohol Use: No Drug/Substance Use Hx: No Substance Use Type: None Hx Substance Use Treatment: No <Clay Verde - Last Filed: 06/12/16 08:03> - Past Medical History Allergies/Adverse Reactions: Allergies Allergy/AdvReac Type Severity Reaction Status Date / Time No Known Drug Allergies Allergy Verified 06/07/16 14:55 SEAFOOD Allergy Severe ANAPHYLAXIS Uncoded 06/07/16 14:55 Home Medications: Ambulatory Orders Albuterol Sulfate Inhaler - [Ventolin HFA Inhaler -] 1 puff IH Q8H 03/22/16 Levothyroxine Sodium [Synthroid] 88 mcg PO DAILY 03/22/16 [place] Carbonate [Eskalith -] 600 mg PO BID 03/22/16 Clonazepam [Klonopin -] 0.5 mg PO BID PRN 05/23/16 Acetaminophen [Tylenol .Regular Strength -] 650 mg PO Q6H PRN #0 tablet Insulin (Novolog 70/30) [Novolog Mix 70/30 Vial -] 46 units SQ BIDAC vial 06/10 Phenytoin Na Extended [Dilantin -] 200 mg PO BID #120 06/10/16 Topiramate [Topamax -] 25 mg PO BID #60 tablet 06/10/16 Review of Systems - Review of Systems Able to Perform ROS?: Yes Comments:: 06/07/16 15:57 GENERAL/CONSTITUTIONAL: No fever or chills. No weakness. HEAD, EYES, EARS, NOSE AND THROAT: No change in vision. No ear pain or discharge. No sore throat. CARDIOVASCULAR: No chest pain or shortness of breath. RESPIRATORY: No cough, wheezing, or hemoptysis. GASTROINTESTINAL: +Nausea, epigastric pain. No vomiting, diarrhea or constipation. GENITOURINARY: No dysuria, frequency, or change in urination. MUSCULOSKELETAL: No joint or muscle swelling or pain. No neck or back pain. SKIN: No rash NEUROLOGIC: No headache, vertigo, loss of consciousness, or change in strength/ sensation. ENDOCRINE: No increased thirst. No abnormal weight change. HEMATOLOGIC/LYMPHATIC: No anemia, easy bleeding, or history of blood clots. ALLERGIC/IMMUNOLOGIC: No hives or skin allergy <Neroda,Perla - Last Filed: 06/07/16 15:57> *Physical Exam - Vital Signs Last Vital Signs Temp Pulse Resp BP Pulse Ox 98.2 F 75 20 117/69 99 06/07/16 14:55 06/07/16 14:55 06/07/16 14:55 06/07/16 14:55 06/07/16 14:55 - Physical Exam Comments: 06/07/16 15:57 GENERAL: Awake, alert, and fully oriented, in no acute distress HEAD: No signs of trauma EYES: PERRLA, EOMI, sclera anicteric, conjunctiva clear ENT: Auricles normal inspection, hearing grossly normal, nares patent, oropharynx clear without exudates. Moist mucosa NECK: Normal ROM, supple, no lymphadenopathy, JVD, or masses LUNGS: Breath sounds equal, clear to auscultation bilaterally. No wheezes, and no crackles HEART: Regular rate and rhythm, normal S1 and S2, no murmurs, rubs or gallops ABDOMEN: +Tenderness to the epigastric region. Soft, normoactive bowel sounds. No guarding, no rebound. No masses EXTREMITIES: Normal range of motion, no edema. No clubbing or cyanosis. No cords, erythema, or tenderness NEUROLOGICAL: Cranial nerves II through XII grossly intact. Normal speech, normal gait SKIN: Warm, Dry, normal turgor, no rashes or lesions noted. <FaviomorrisPerla - Last Filed: 06/07/16 15:57> - Vital Signs Last Vital Signs Temp Pulse Resp BP Pulse Ox 97.9 F 67 16 108/62 98 06/07/16 18:15 06/07/16 18:15 06/07/16 18:15 06/07/16 18:15 06/07/16 18:15 <Simona Farah - Last Filed: 06/07/16 20:35> - Vital Signs Last Vital Signs Temp Pulse Resp BP Pulse Ox 98.2 F 75 20 117/69 99 06/07/16 14:55 06/07/16 14:55 06/07/16 14:55 06/07/16 14:55 06/07/16 14:55 <Clay Verde - Last Filed: 06/12/16 08:03> ED Treatment Course - ADDITIONAL ORDERS Additional order review: Laboratory Results 06/07/16 06/07/16 15:15 15:15 Urine Color Straw Urine Appearance Clear Urine pH 7.0 Ur Specific [place] 1.021 Urine Protein Negative Urine Glucose (UA) 3+ H Urine Ketones Trace H Urine Blood 2+ H Urine Nitrite Negative Urine Bilirubin Negative Urine Urobilinogen Negative Ur Leukocyte Esterase 3+ H Urine HCG, Qual Negative <Perla Lebron - Last Filed: 06/07/16 15:57> - LABORATORY CBC & Chemistry Diagram: 06/07/16 15:38 06/07/16 15:38 - ADDITIONAL ORDERS Additional order review: Laboratory Results 06/07/16 06/07/16 06/07/16 15:38 15:38 15:15 Sodium 135 L Potassium 3.9 Chloride 101 Carbon Dioxide 26 Anion Gap 8 BUN 12 D Creatinine 0.7 D Creat Clearance w eGFR > 60 Random Glucose 376 H* D Calcium 9.7 Total Bilirubin 0.5 AST 11 L D ALT 14 Alkaline Phosphatase 115 Total Protein 8.0 Albumin 3.5 Lipase 3805 H Urine Color Urine Appearance Urine pH Ur Specific [place] Urine Protein Urine Glucose (UA) Urine Ketones Urine Blood Urine Nitrite Urine Bilirubin Urine Urobilinogen Ur Leukocyte Esterase Urine RBC Urine WBC Ur Epithelial Cells Urine Bacteria Urine HCG, Qual Negative Phenytoin < 2.5 L 06/07/16 15:15 Sodium Potassium Chloride Carbon Dioxide Anion Gap BUN Creatinine Creat Clearance w eGFR Random Glucose Calcium Total Bilirubin AST ALT Alkaline Phosphatase Total Protein Albumin Lipase Urine Color Straw Urine Appearance Clear Urine pH 7.0 Ur Specific [place] 1.021 Urine Protein Negative Urine Glucose (UA) 3+ H Urine Ketones Trace H Urine Blood 2+ H Urine Nitrite Negative Urine Bilirubin Negative Urine Urobilinogen Negative Ur Leukocyte Esterase 3+ H Urine RBC 27 Urine WBC 28 Ur Epithelial Cells Rare Urine Bacteria Rare Urine HCG, Qual Phenytoin 06/07/16 15:38 RBC 4.96 MCV 80.4 MCHC 33.8 RDW 13.8 MPV 9.2 Neutrophils % 65.4 Lymphocytes % 26.3 Monocytes % 4.8 Eosinophils % 2.7 D Basophils % 0.8 - Medications Given in the ED: ED Medications Discontinued Medications Generic Name Dose Route Start Last Admin Trade Name Freq PRN Reason Stop Dose Admin Acetaminophen 1,000 mg 06/07/16 15:45 06/07/16 16:45 Ofirmev Injection - IVPB 06/07/16 15:46 1,000 mg ONCE ONE Administration Sodium Chloride 1,000 mls @ 1,000 mls/hr 06/07/16 15:08 06/07/16 15:45 Normal Saline - IV 06/07/16 16:07 1,000 mls/hr ASDIR STA Administration Ceftriaxone Sodium 1 gm/ 50 mls @ 100 mls/hr 06/07/16 16:56 06/07/16 17:28 Dextrose IVPB 06/07/16 17:25 100 mls/hr ONCE ONE Administration Ondansetron HCl 4 mg 06/07/16 15:45 06/07/16 16:45 Zofran Injection IVPB 06/07/16 15:46 4 mg ONCE ONE Administration <Simona Farah - Last Filed: 06/07/16 20:35> - LABORATORY CBC & Chemistry Diagram: 06/10/16 06:30 06/10/16 06:30 - ADDITIONAL ORDERS Additional order review: Laboratory Results 06/07/16 06/07/16 15:15 15:15 Urine Color Straw Urine Appearance Clear Urine pH 7.0 Ur Specific [place] 1.021 Urine Protein Negative Urine Glucose (UA) 3+ H Urine Ketones Trace H Urine Blood 2+ H Urine Nitrite Negative Urine Bilirubin Negative Urine Urobilinogen Negative Ur Leukocyte Esterase 3+ H Urine HCG, Qual Negative <Clay Verde - Last Filed: 06/12/16 08:03> Medical Decision Making - Medical Decision Making 06/07/16 15:51 A portion of this note was documented by scribe services under my direction. I have reviewed the details of the note, within reason, and agree with the documentation with the following case summary and management plan written by me. Patient treated in the ED. Nursing notes are reviewed and incorporated into the medical decision-making. Vital signs reviewed. Peripheral IV access obtained by the nurse, laboratory studies are drawn and sent, reviewed and interpreted by myself. Vital Signs Temp Pulse Resp BP Pulse Ox 98.2 F 75 20 117/69 99 06/07/16 14:55 06/07/16 14:55 06/07/16 14:55 06/07/16 14:55 06/07/16 14:55 45-year-old female with history of bipolar disorder, asthma, epilepsy disorder on Dilantin presents to the emergency department with acute on chronic epigastric pain. The patient reports that this feels exactly like her pancreatitis. Patient also reports that she's been adherent to her Dilantin though reports that she's been having frequent general tonic clonic seizures. Denies any recent illnesses, as fevers, chills, cough, vomiting. Reports some nausea. The patient is neurologically intact here. She has epigastric tenderness. Patient does have history of chronic pancreatitis and I suspect that this is likely pancreatitis. We'll draw labs, give IV fluids, nausea medicine. The patient does have a history of multiple ED visits and elopement. 06/07/16 16:56 CBC, BMP 06/07/16 15:38 Urine Test Results Urine Color Straw 06/07/16 15:15 Urine Appearance Clear 06/07/16 15:15 Urine pH 7.0 (5.0-8.0) 06/07/16 15:15 Ur Specific [place] 1.021 (1.001-1.035) 06/07/16 15:15 Urine Protein Negative (NEGATIVE) 06/07/16 15:15 Urine Glucose (UA) 3+ (NEGATIVE) H 06/07/16 15:15 Urine Ketones Trace (NEGATIVE) H 06/07/16 15:15 Urine Blood 2+ (NEGATIVE) H 06/07/16 15:15 Urine Nitrite Negative (NEGATIVE) 06/07/16 15:15 Urine Bilirubin Negative (NEGATIVE) 06/07/16 15:15 Ur Leukocyte Esterase 3+ (NEGATIVE) H 06/07/16 15:15 Urine RBC 27 /hpf (0-3) 06/07/16 15:15 Urine WBC 28 /hpf (3-5) 06/07/16 15:15 Ur Epithelial Cells Rare /hpf (FEW) 06/07/16 15:15 Urine Bacteria Rare /hpf (NONE SEEN) 06/07/16 15:15 CMP pending. Ceftriaxone ordered for UTI. Case signed out to Dr. Darling for further management and disposition. <Clay Verde - Last Filed: 06/12/16 08:03> *DC/Admit/Observation/Transfer - Attestations Scribe Attestion: 06/07/16 15:56 Documentation prepared by Perla Lebron, acting as medical reception for Clay eVrde MD, /DO. <Perla Lebron - Last Filed: 06/07/16 15:57> <Simona Farah - Last Filed: 06/07/16 20:35> <Clay Verde - Last Filed: 06/12/16 08:03> Diagnosis at time of Disposition: Subtherapeutic serum dilantin level, Non-compliant behavior, History of seizure , Abdominal pain, UTI (lower urinary tract infection), Pancreatitis, Seizure disorder - Discharge Dispostion Disposition: HOME Condition at time of disposition: Improved - Prescriptions - Referrals
[2016-06-07 16:37] LABS: BASOPHIL 0.8 % (0-2.0); EOSINOPHIL 2.7 % (0-4.5); MCH 27.2 pg (25.7-33.7); MCHC 33.8 g/dl (32.0-36.0); MEAN CELL VOLUME 80.4 fl (80-96); MEAN PLT VOLUME 9.2 fl (7.5-11.1); NEUTROPHILS 65.4 % (42.8-82.8); PLATELET COUNT 216 K/MM3 (134-434); RDW 13.8 % (11.6-15.6); WHITE BLOOD COUNT 10.6 K/mm3 (4.0-10.0)
[2016-06-07] MEDS ORDERED: CEFTRIAXONE 1 GM in DEXTROSE 5%-WATER - 50 ML IVPB ONE (16:56)
[2016-06-07 17:56] LABS: ALBUMIN 3.5 g/dl (3.4-5.0); ALK PHOS 115 U/L (45-117); ANION GAP 8 (8-16); BILIRUBIN,TOTAL 0.5 mg/dL (0.2-1.0); CALCIUM 9.7 mg/dL (8.5-10.1); CO2 26 mmol/L (21-32); CREATININE 0.7 mg/dL (0.55-1.02); SGOT/AST 11 U/L (15-37); SGPT/ALT 14 U/L (12-78)
[2016-06-07 18:39] LABS: GLUCOSE,RANDOM 376 mg/dL (74-106)
[2016-06-07] MEDS ORDERED: PHENYTOIN SODIUM 100 MG/2 ML VIAL IVPB ONE (19:34)
[2016-06-07] MEDS ORDERED: clonazePAM 0.5 MG TABLET PO PRN (20:24)
--- NOTE | 2016-06-07 20:50 | PDOC ---
*Physical Exam - Vital Signs Last Vital Signs Temp Pulse Resp BP Pulse Ox 97.9 F 67 16 108/62 98 06/07/16 18:15 06/07/16 18:15 06/07/16 18:15 06/07/16 18:15 06/07/16 18:15 ED Treatment Course - LABORATORY CBC & Chemistry Diagram: 06/07/16 15:38 06/07/16 15:38 - ADDITIONAL ORDERS Additional order review: Laboratory Results 06/07/16 06/07/16 06/07/16 15:38 15:38 15:15 Sodium 135 L Potassium 3.9 Chloride 101 Carbon Dioxide 26 Anion Gap 8 BUN 12 D Creatinine 0.7 D Creat Clearance w eGFR > 60 Random Glucose 376 H* D Calcium 9.7 Total Bilirubin 0.5 AST 11 L D ALT 14 Alkaline Phosphatase 115 Total Protein 8.0 Albumin 3.5 Lipase 3805 H Urine Color Urine Appearance Urine pH Ur Specific [place] Urine Protein Urine Glucose (UA) Urine Ketones Urine Blood Urine Nitrite Urine Bilirubin Urine Urobilinogen Ur Leukocyte Esterase Urine RBC Urine WBC Ur Epithelial Cells Urine Bacteria Urine HCG, Qual Negative Phenytoin < 2.5 L 06/07/16 15:15 Sodium Potassium Chloride Carbon Dioxide Anion Gap BUN Creatinine Creat Clearance w eGFR Random Glucose Calcium Total Bilirubin AST ALT Alkaline Phosphatase Total Protein Albumin Lipase Urine Color Straw Urine Appearance Clear Urine pH 7.0 Ur Specific [place] 1.021 Urine Protein Negative Urine Glucose (UA) 3+ H Urine Ketones Trace H Urine Blood 2+ H Urine Nitrite Negative Urine Bilirubin Negative Urine Urobilinogen Negative Ur Leukocyte Esterase 3+ H Urine RBC 27 Urine WBC 28 Ur Epithelial Cells Rare Urine Bacteria Rare Urine HCG, Qual Phenytoin 06/07/16 15:38 RBC 4.96 MCV 80.4 MCHC 33.8 RDW 13.8 MPV 9.2 Neutrophils % 65.4 Lymphocytes % 26.3 Monocytes % 4.8 Eosinophils % 2.7 D Basophils % 0.8 - Medications Given in the ED: ED Medications Discontinued Medications Generic Name Dose Route Start Last Admin Trade Name Freq PRN Reason Stop Dose Admin Acetaminophen 1,000 mg 06/07/16 15:45 06/07/16 16:45 Ofirmev Injection - IVPB 06/07/16 15:46 1,000 mg ONCE ONE Administration Sodium Chloride 1,000 mls @ 1,000 mls/hr 06/07/16 15:08 06/07/16 15:45 Normal Saline - IV 06/07/16 16:07 1,000 mls/hr ASDIR STA Administration Ceftriaxone Sodium 1 gm/ 50 mls @ 100 mls/hr 06/07/16 16:56 06/07/16 17:28 Dextrose IVPB 06/07/16 17:25 100 mls/hr ONCE ONE Administration Ondansetron HCl 4 mg 06/07/16 15:45 06/07/16 16:45 Zofran Injection IVPB 06/07/16 15:46 4 mg ONCE ONE Administration - Consult/PCP Time Called: 20:20 (Paged Dr. Carey, Dr. Bazzi called back covering. He referred patient to Dr. Jacob. Dr. Jacob's answering service stated that Dr. Jacob is away on vacation and to refer to hospitalist.) Case discussed with personal care physician: Neftali Bazzi Medical Decision Making - Medical Decision Making 06/07/16 20:37 Lipase elevated, Dilantin less than 2.5. Noncompliance Discussed, Nausea and Vomiting resolved- still having some gi upset Discussed with Dr. Bazzi, admit to [facility] Load[facility] with Dilantin IV Patient was able to eat a sandwich after pain medicine and zofran. *DC/Admit/Observation/Transfer Diagnosis at time of Disposition: Subtherapeutic serum dilantin level, Non-compliant behavior, History of seizure , Abdominal pain, UTI (lower urinary tract infection), Seizure disorder Pancreatitis Qualifiers: Chronicity: acute Pancreatitis type: unspecified pancreatitis type Acute pancreatitis complication: unspecified Qualified Code(s): K85.90 - Acute pancreatitis without necrosis or infection, unspecified - Discharge Dispostion Condition at time of disposition: Improved Admit: Yes - Referrals Referrals: Trey Richardson MD [Primary Care Provider] - - Patient Instructions - Post Discharge Activity
[2016-06-08] MEDS: LITHIUM CARBONATE 300 MG CAPSULE (FP) PO SCH ×3 (00:54→21:56)
[2016-06-08] MEDS: PHENYTOIN NA EXTENDED 100 MG CAPSULE (FP) PO SCH ×4 (00:54→21:56)
[2016-06-08] MEDS: HEPARIN NA (PORCINE) 5,000 UNITS/ML 1ML VIAL SQ SCH ×4 (00:55→21:57)
[2016-06-08] MEDS: INSULIN SLIDING SCALE (NOVOLOG) 1 VIAL SQ SCH ×5 (00:56→22:00)
--- NOTE | 2016-06-08 01:52 | CONSULT ---
Consult Consult Specialty:: endocrine Referred by:: Reason for Consultation:: iddm - History of Present Illness Chief Complaint: seizures History of Present Illness: 25 year old female with a past medical hx of IDDM, asthma, CHF, pancreatitis, hypothyroidism, bipolar disorder, and seizure disorder (on Dilantin) who presents to the ED complaining of epigastric pain and 1 seizure today. She reports associated nausea. She states her abdominal symptoms are reminiscent of prior episodes of pancreatitis. The patient reports she has been unable to eat secondary to her symptoms. The patient reports she has been compliant with her seizure medication but is having frequent seizures. she denies hypoglycemia, fever or cough - History Source History Provided By: Family Member, Friend Limitations to Obtaining History: Clinical Condition - Past Medical History Gastrointestinal: Yes: Pancreatitis ...LMP: 03/21/16 Psych: Yes: Bipolar Endocrine: Yes: Diabetes Mellitus (poorly controlled) - Alcohol/Substance Use Hx Alcohol Use: No - Smoking History Smoking history: Never smoked Have you smoked in the past 12 months: No Aproximately how many cigarettes per day: 0 If you are a former smoker, when did you quit?: 2011 - Social History Usual Living Arrangement: With Parent Home Medications - Allergies Allergies/Adverse Reactions: Allergies Allergy/AdvReac Type Severity Reaction Status Date / Time No Known Drug Allergies Allergy Verified 06/07/16 14:55 SEAFOOD Allergy Severe ANAPHYLAXIS Uncoded 06/07/16 14:55 - Home Medications Home Medications: Ambulatory Orders Albuterol Sulfate Inhaler - [Ventolin HFA Inhaler -] 1 puff IH Q8H 03/22/16 Insulin Lispro Protamin/Lispro [Humalog Mix 75-25 Kwikpen] 50 unit SQ BID Levothyroxine Sodium [Synthroid] 88 mcg PO DAILY 03/22/16 [place] Carbonate [Eskalith -] 600 mg PO BID 03/22/16 Phenytoin Na Extended [Dilantin -] 100 mg PO TID 03/22/16 Clonazepam [Klonopin -] 0.5 mg PO BID PRN 05/23/16 Nitrofurantoin Monohyd/M-Cryst [Macrobid -] 100 mg PO BID #14 capsule 05/23/16 Erythromycin 0.5% Eye Ointment [Erythromycin 0.5% Eye Ointment -] 1 applic OS QID #1 tube MDD 4 05/31/16 Review of Systems - Review of Systems Constitutional: reports: Loss of Appetite, Weakness Eyes: reports: No Symptoms HENT: reports: No Symptoms Neck: reports: No Symptoms Cardiovascular: reports: No Symptoms Respiratory: reports: No Symptoms Gastrointestinal: reports: No Symptoms Genitourinary: reports: No Symptoms Breasts: reports: No Symptoms Reported Musculoskeletal: reports: No Symptoms Integumentary: reports: No Symptoms Neurological: reports: No Symptoms Endocrine: reports: No Symptoms Hematology/Lymphatic: reports: No Symptoms Psychiatric: reports: Anxiety Physical Exam Vital Signs: Vital Signs Temperature 98.2 F 06/07/16 20:30 Pulse Rate 73 06/07/16 21:30 Respiratory Rate 18 06/07/16 21:30 Blood Pressure 114/90 06/07/16 21:30 O2 Sat by Pulse Oximetry (%) 98 06/07/16 21:30 Constitutional: Yes: Anxious Eyes: Yes: EOM Intact HENT: Yes: Normocephalic Neck: Yes: Trachea Midline Cardiovascular: Yes: Regular Rate and Rhythm Respiratory: Yes: CTA Bilaterally Gastrointestinal: Yes: Normal Bowel Sounds ...Rectal Exam: Yes: Deferred Renal/: Yes: WNL Musculoskeletal: Yes: WNL Extremities: Yes: WNL Edema: No Peripheral Pulses WNL: Yes Integumentary: Yes: WNL Neurological: Yes: Alert, Oriented Problem List - Problems (1) Diabetes mellitus, insulin dependent (IDDM), uncontrolled Code(s): E10.65 - TYPE 1 DIABETES MELLITUS WITH HYPERGLYCEMIA Assessment/Plan Current Active Problems Abdominal pain (Acute) History of seizure (Acute) Non-compliant behavior (Acute) Pancreatitis (Acute) Seizure disorder (Acute) Subtherapeutic serum dilantin level (Acute) UTI (lower urinary tract infection) (Acute) iddm hyperglycemia/diabetic neurropathy?compliance meds ?lithium effects Abnormal Lab Results 06/07/16 06/07/16 06/07/16 15:15 15:38 15:38 WBC 10.6 H Sodium 135 L Random Glucose 376 H* D AST 11 L D Lipase 3805 H Urine Glucose (UA) 3+ H Urine Ketones Trace H Urine Blood 2+ H Ur Leukocyte Esterase 3+ H Phenytoin 06/07/16 15:38 WBC Sodium Random Glucose AST Lipase Urine Glucose (UA) Urine Ketones Urine Blood Ur Leukocyte Esterase Phenytoin < 2.5 L plan: continue novolog 70/30 40 units bid use bgm coverage novolg dose ck hb aic ck lithium level psych consult
[2016-06-08 05:16] VITALS: BMI 31.6
[2016-06-08] MEDS: LEVOTHYROXINE NA 88 MCG TABLET (FP) PO SCH (06:13)
[2016-06-08] MEDS: INSULIN (NOVOLOG MIX 70/30) 100 UNITS/ML MDV SQ SCH ×2 (06:16→17:55)
[2016-06-08] MEDS ORDERED: INSULIN (NOVOLOG MIX 70/30) 100 UNITS/ML MDV SQ SCH (07:00)
[2016-06-08 08:53] LABS: EOSINOPHIL 3.5 % (0-4.5); MCH 27.2 pg (25.7-33.7); MCHC 33.4 g/dl (32.0-36.0); MEAN CELL VOLUME 81.6 fl (80-96); MEAN PLT VOLUME 9.1 fl (7.5-11.1); NEUTROPHILS 57.7 % (42.8-82.8); PLATELET COUNT 212 K/MM3 (134-434); RDW 13.7 % (11.6-15.6); WHITE BLOOD COUNT 9.3 K/mm3 (4.0-10.0)
--- NOTE | 2016-06-08 11:30 | PN ---
Progress Note (short form) - Note Progress Note: ID consult dictated imp/reccd 25 year old female with IDDM hx DKA, Bipolar disorder, pancreatitis, Seizure disorder (on dilantin)- presented to ED with increasing seizures over the last one month, has come to ED several times with subtherapeutic dilantin levels saw a new neurologist on Saturday- doesn't know the name! no fevers or chills had a seizure, abdominal pain and nausea and came to ED yesterday denies dysuria +menses today seizures- ?medication adherence Laboratory Tests 06/07/16 15:38 Phenytoin < 2.5 L nausea/midepigastric pain- secondary to pancreatitis asymptomatic bacteriuria- no signs or symptoms of UTI no dysuria/no suprapubic or cvat no need to treat at this time received rocephin in ED yesterday
--- NOTE | 2016-06-08 13:02 | CONS ---
DATE OF CONSULTATION: DATE OF DICTATION: 06/08/2016 REQUESTING PHYSICIAN: Cassie Kearney MD HISTORY OF PRESENT ILLNESS: This is a 25-year-old woman with a past medical history of diabetes, she has history of DKA in the past, there is a history of asthma, bipolar disorder, and seizure disorder, who comes to the emergency room with complaints of increasing seizure frequency over the course of the last month as well as yesterday acute onset of mid epigastric discomfort and nausea. There has been no vomiting. She has had these prior symptoms and has a history of chronic pancreatitis. She was unable to eat due to the nausea yesterday. There have been fevers or chills. She states she has been taking her Dilantin regularly. She saw a new neurologist on Saturday, she does not remember his name, and was told to start a new medication that she has not started yet. She denies any fevers or chills. She has no dysuria. She has no flank pain or suprapubic pain. Her menses started today, and her test is negative. PAST MEDICAL HISTORY: Notable for diabetes, asthma, congestive heart failure, pancreatitis, hypothyroidism, bipolar disorder, seizure disorder. She has a history of anxiety, as well. Her surgical history is negative. FAMILY HISTORY: Notable for heart disease in her grandparents. SOCIAL HISTORY: She stopped smoking 5 years ago. She denies any alcohol use. She is . She lives with her . She is sexually active. ALLERGIES: She is allergic to SEAFOOD. MEDICATIONS: As an outpatient Albuterol inhaler, insulin, Synthroid, lithium, Dilantin, Klonopin, and she recently completed a course of Macrobid. REVIEW OF SYSTEMS: The patient is a very poor historian. She currently reports her nausea has resolved. She was able to eat breakfast this morning. She has not vomited. She has not had any further seizures. She has no headache. She has no fevers or chills. She has no dysuria. She has no hematuria. She has had no increasing urinary frequency. She has no flank pain or suprapubic tenderness. She has no rashes. PHYSICAL EXAMINATION Vital signs: She is afebrile, resting comfortably, temperature is 97.9; she has been afebrile since admission. Her pulse is 59, blood pressure is 112/69, respiratory rate 20, she weighs 208 pounds. HEENT: She is normocephalic. Her eyes are anicteric. Neck: Supple. Lungs: Clear to auscultation. Heart: Regular rate and rhythm. Abdomen: Soft, nontender. She has no suprapubic or CVA tenderness. Extremities: Without edema. DIAGNOSTIC DATA: Labs are notable for a white count on admission of 10.6, today it is 9.3, hemoglobin 13, platelets are 212. Chemistries on admission included a glucose of 376 and a lipase of 3805, but today is 549. Urinalysis was notable for 28 white cells. She also has 2+ blood, probably from her menses, and 3+ glucose. Dilantin level was 2.5. Cultures are pending. SUMMARY: 1. This is a 25-year-old woman with seizures, questionable medication adherence given her low Dilantin levels. 2. Nausea, mid epigastric pain secondary to pancreatitis. Lipase is improving. 3. Pyuria. No signs or symptoms of urinary tract infection. So, I suspect this is asymptomatic bacteriuria. She has no signs or symptoms of urinary tract infection. No need to treat at this time. She did receive Rocephin in the emergency room yesterday. 4. History of diabetes. 5. History of bipolar disorder. GAMALIEL SOLIS M.D. [id number]
[2016-06-08 13:19] LABS: ALBUMIN 2.9 g/dl (3.4-5.0); ANION GAP 10 (8-16); BILIRUBIN,TOTAL 0.4 mg/dL (0.2-1.0); CALCIUM 8.2 mg/dL (8.5-10.1); CO2 24 mmol/L (21-32); CREATININE 0.6 mg/dL (0.55-1.02); GLUCOSE,RANDOM 290 mg/dL (74-106); SGOT/AST 8 U/L (15-37); SGPT/ALT 11 U/L (12-78); TOT PROT 6.7 g/dl (6.4-8.2)
[2016-06-08 13:28] LABS: ALK PHOS 89 U/L (45-117); FREE T4 1.05 ng/dl (0.76-1.46); THYROID STIMULATING HORMONE 1.12 uIU/ml (0.358-3.74)
--- NOTE | 2016-06-08 14:45 | CONSULT ---
Consult - text type - Consultation Consultation Note: NEUROLOGY CONSULTATION is greatly appreciated: This 25 yo RH woman with h/o bipolar disease, Hypothyroidism and pancreatitis is maintained on lithium (600 mg BID). Recurrent seizes x 1 year. Lives with her and her mother (who provides additional history on the phone.) Was on Dilantin 100 mg /day until last Saturday when it was increased to 100 TID and a "second medication" was added. Patient can be warned by dizziness, can see flashing lights and can have unusual behavior such as "throwing things at her mother" for which she claims amnesia. Some post ictal confusion for "few minutes is possible. Now admitted after a seizure with UTI and subtherapeutic Dilantin level (<2.5 mg %). Apparently given 1000mg IV Dilantin in the ER. ROBBIE: Obses. No head trauma. NEURO: Mild static encephalopathy. CN' s Normal without nystagmus. Motor: Normal without drift or tremor. Normal reflexes. Downgoing toes. Coord: No FTN dystaxia Sensory: normal Gait: Normal IMP: Non-focal exam sig for mild-mod static encephalopathy. Possible seizure disorder. Exacerbated by toxic-metabolic factors (UTI) and Subtherapeutic dilantin level. Suggest: repeat Dilantin level today. Increase dilantin to 200 mg PO q12 hrs. Continue antibiotics. Thank you very much, Segundo Donaldson MD
--- NOTE | 2016-06-08 15:26 | HP ---
Admitting History and Physical - Primary Care Physician PCP: Cassie Kearney - Admission Chief Complaint: WEAKNESS/ABD PAIN History of Present Illness: The patient is a 25 year old female with a past medical hx of IDDM, asthma, CHF , pancreatitis, hypothyroidism, bipolar disorder, and seizure disorder (on Dilantin) who presents to the ED complaining of epigastric pain and 1 seizure today. She reports associated nausea. She states her abdominal symptoms are reminiscent of prior episodes of pancreatitis. The patient reports she has been unable to eat secondary to her symptoms. The patient reports she has been compliant with her seizure medication but is having frequent seizures. The patient denies fever, chills, chest pain, SOB, diarrhea, vomiting. History Source: Patient - Past Medical History Gastrointestinal: Yes: Pancreatitis ...LMP: 03/21/16 ...: No Psych: Yes: Bipolar Endocrine: Yes: Diabetes Mellitus (poorly controlled) - Smoking History Smoking history: Never smoked Have you smoked in the past 12 months: No Aproximately how many cigarettes per day: 0 If you are a former smoker, when did you quit?: 2011 - Alcohol/Substance Use Hx Alcohol Use: No Home Medications - Allergies Allergies/Adverse Reactions: Allergies Allergy/AdvReac Type Severity Reaction Status Date / Time No Known Drug Allergies Allergy Verified 06/07/16 14:55 SEAFOOD Allergy Severe ANAPHYLAXIS Uncoded 06/07/16 14:55 - Home Medications Home Medications: Ambulatory Orders Albuterol Sulfate Inhaler - [Ventolin HFA Inhaler -] 1 puff IH Q8H 03/22/16 Insulin Lispro Protamin/Lispro [Humalog Mix 75-25 Kwikpen] 50 unit SQ BID Levothyroxine Sodium [Synthroid] 88 mcg PO DAILY 03/22/16 [place] Carbonate [Eskalith -] 600 mg PO BID 03/22/16 Phenytoin Na Extended [Dilantin -] 100 mg PO TID 03/22/16 Clonazepam [Klonopin -] 0.5 mg PO BID PRN 05/23/16 Nitrofurantoin Monohyd/M-Cryst [Macrobid -] 100 mg PO BID #14 capsule 05/23/16 Erythromycin 0.5% Eye Ointment [Erythromycin 0.5% Eye Ointment -] 1 applic OS QID #1 tube MDD 4 05/31/16 Review of Systems - Review of Systems Constitutional: reports: Weakness Eyes: reports: No Symptoms HENT: reports: No Symptoms Neck: reports: No Symptoms Cardiovascular: reports: No Symptoms Respiratory: reports: Other Gastrointestinal: reports: Abdominal Pain, Bloating Genitourinary: reports: No Symptoms Musculoskeletal: reports: Muscle Weakness Integumentary: reports: Other Neurological: reports: Unsteady Gait, Weakness Endocrine: reports: Increased Thirst Physical Examination Vital Signs: Vital Signs Temperature 98.4 F 06/08/16 14:38 Pulse Rate 84 06/08/16 14:38 Respiratory Rate 16 06/08/16 14:38 Blood Pressure 120/82 06/08/16 14:38 O2 Sat by Pulse Oximetry (%) 98 06/07/16 22:00 Constitutional: Yes: Mild Distress Eyes: Yes: WNL HENT: Yes: WNL Neck: Yes: WNL Cardiovascular: Yes: WNL Respiratory: Yes: WNL Gastrointestinal: Yes: Tenderness Renal/: Yes: WNL Musculoskeletal: Yes: Muscle Weakness Extremities: Yes: WNL Edema: No Peripheral Pulses WNL: Yes Integumentary: Yes: WNL Wound/Incision: Yes: Clean/Dry Neurological: Yes: Other ...Motor Strength: LLE, RLE Psychiatric: Yes: Other Labs: CBC, BMP 06/08/16 06:30 06/08/16 06:30 Problem List - Problems (1) Abdominal pain Code(s): R10.9 - UNSPECIFIED ABDOMINAL PAIN (2) Diabetes mellitus, insulin dependent (IDDM), uncontrolled Code(s): E10.65 - TYPE 1 DIABETES MELLITUS WITH HYPERGLYCEMIA (3) History of seizure Code(s): Z87.898 - PERSONAL HISTORY OF OTHER SPECIFIED CONDITIONS (4) Non-compliant behavior Code(s): R46.89 - OTHER SYMPTOMS AND SIGNS INVOLVING APPEARANCE AND BEHAVIOR (5) Pancreatitis Code(s): K85.9 - ACUTE PANCREATITIS, UNSPECIFIED * DO NOT USE * Qualifiers: Chronicity: acute Pancreatitis type: unspecified pancreatitis type Acute pancreatitis complication: unspecified Qualified Code(s): K85.90 - Acute pancreatitis without necrosis or infection, unspecified (6) Seizure disorder Code(s): G40.909 - EPILEPSY, UNSP, NOT INTRACTABLE, WITHOUT STATUS EPILEPTICUS (7) Abdominal pain Code(s): R10.9 - UNSPECIFIED ABDOMINAL PAIN Qualifiers: Abdominal location: epigastric Qualified Code(s): R10.13 - Epigastric pain (8) Anxiety Code(s): F41.9 - ANXIETY DISORDER, UNSPECIFIED (9) Asthma Code(s): J45.909 - UNSPECIFIED ASTHMA, UNCOMPLICATED (10) Elevated lipase Code(s): R74.8 - ABNORMAL LEVELS OF OTHER SERUM ENZYMES (11) Pancreatitis, acute Code(s): K85.9 - ACUTE PANCREATITIS, UNSPECIFIED * DO NOT USE * Qualifiers: Pancreatitis type: unspecified pancreatitis type Assessment/Plan NPO IVF GI EVAL NEUROLOGY EVAL ENDOCRINE EVAL BGM CHECK NEURO CHECKS STATEMENT DISTRIBUTION CLERK PSYCHAITRY EVAL
--- NOTE | 2016-06-08 15:28 | PN ---
Problem List - Problems (1) Seizure disorder Code(s): G40.909 - EPILEPSY, UNSP, NOT INTRACTABLE, WITHOUT STATUS EPILEPTICUS (2) Pancreatitis Code(s): K85.9 - ACUTE PANCREATITIS, UNSPECIFIED * DO NOT USE * Qualifiers: Chronicity: acute Pancreatitis type: unspecified pancreatitis type Acute pancreatitis complication: unspecified Qualified Code(s): K85.90 - Acute pancreatitis without necrosis or infection, unspecified (3) Asymptomatic bacteriuria Code(s): R82.71 - BACTERIURIA
--- NOTE | 2016-06-08 15:33 | PN ---
Progress Note (short form) - Note Progress Note: GI CONSULTATION: SEE COMPLETE DICTATION IN BRIEF: 25F HX OF OBESITY/ BIPOLAR DISEASE ON LITHIUM/ IDDM/ HYPOTHYROIDISM/ SEIZURE DISORDER REPORTS HX OF RECURRENT PANCREATITIS DUE TO SEREQUEL HAD MRI/CT SCAN/SONOGRAM IN [id number] WITHOUT SIGNIFICANT FINDINGS--FOLL. BY DR RIEVRA IN PAST(PT DISMISSED DUE TO NONCOMPLIANCE-- PER HER REPORT) NOW ADMIT WITH NAUSEA/VOMITING IN SETTING OF ACUTE SZ ALL SYMPTOMS RESOLVED AFTER SEIZURE AND PT HUNGRY EXAM BENIGN LIPASE 3000 TO 500 IN 24 HOURS QUESTIONABLE PANCREATITIS VS ENZYME LEAK DUE TO SEIZURE ASYMPTOMATIC NOW SINCE HAD EXTENSIVE IMAGING IN 2016--WOULD DEFER W/U FOR NOW "UNLESS" IF SHE IS UNABLE TO EAT AND IF SX'S RECUR OBSERVE ADVANCE DIET OUTPATIENT GI F/U THANKS YOU, MD DR JUSTIN CORDOVA AVAIL TILL 06/11 IF NEEDED
--- NOTE | 2016-06-08 17:05 | CONS ---
DATE OF CONSULTATION: 06/08/2016 GASTROENTEROLOGY CONSULTATION REASON FOR CONSULTATION: I was asked by Dr. Richardson to evaluate the patient for abdominal pain, possible pancreatitis. HISTORY OF PRESENT ILLNESS: The patient is a 25-year-old white female who is actually a very poor informant. History comes from herself as well as the medical record. Patient although 25 years old apparently has multiple medical problems, has had multiple hospitalizations at [facility], and tells me that she has known underlying diabetes. She tells me that she has had heart disease. She had a seizure disorder, and she has had history of chronic pancreatitis due to Seroquel. This is all according to her reports. The patient apparently states that she came to the hospital yesterday because she had a seizure, and when she came she had some nausea and vomiting and some abdominal pain in the setting of the seizure. She was noted to have a subtherapeutic Dilantin level, and the patient tells me that all of her GI type symptoms have now resolved. She is not having any pain, nausea, vomiting. She is hungry and would like to eat. She says she has not had a bout of pancreatitis in awhile. She tells me she is followed by Dr. Pang for many years for this condition, however he no longer will take care of her because she has been completely noncompliant with her care. The patient otherwise reports not having any other significant prior gastrointestinal history. There is no known history of any ulcer disease, and according to the chart it looks like she had an episode of pancreatitis in January of 2016. The patient has had MRCP and CAT scans in the fall as well as sonogram that were all unremarkable. There was some fullness to the pancreatic head, but on a repeat CAT scan and sonogram, that did not appear to be present. PAST MEDICAL HISTORY: As noted for non-insulin dependent diabetes now on insulin, seizure disorder, hypothyroidism, pancreatitis, and bipolar disorder. She has had no prior surgery. She tells me she does not drink, she denies smoking or drug use. She tells me she is , lives at home, and is unemployed. She says that her father had diabetes and pancreatitis, and her mother has a history of heart disease. She denies having allergies to medications. She cannot really name what her medications are. Currently her medications in the hospital include heparin subcutaneous, lithium, Klonopin, Dilantin, insulin, Novolog insulin, Synthroid, and Zofran. She initially got a dose of ceftriaxone. There was a question of UTI on admission. She was seen by an infectious disease agricultural consultant who did not think she had symptomatology, and that treatment was not warranted. PHYSICAL EXAMINATION: General: She is in absolutely no acute distress. Vital signs: Stable. Temperature 98. She is not tachycardic. Her blood pressure is good. HEENT: Sclerae anicteric. Neck: Supple. Lungs: Clear. Heart: Regular. Abdomen: Soft. Bowel sounds active. No masses, rebound, or guarding. There are no scars. The abdomen is symmetric. There is no tenderness to deep palpation. LABORATORY DATA: Notable in that the serum sodium is 141, potassium 3.6, chloride 107, bicarbonate 24, BUN 7, creatinine 0.6, glucose 290, calcium 8.2, total bilirubin 0.4, AST of 8, ALT of 11, alkaline phosphatase of 89, total protein 6.7, albumin 2.9. It appears that her lipase on admission was 3800, today it is 500. The patient otherwise her white count is 9.3, with an hemoglobin and hematocrit of 13/39 and 212,000 platelets. It is noted that her Dilantin level was significantly subtherapeutic on admission, and her lithium level is pending. It appears that on admission, she did not have any GI testing, as of this time. IMPRESSION: It is my impression that the patient is a 25-year-old obese woman with a past medical history of hypothyroidism, bipolar disease, on multiple medications such as lithium. She has a history of seizure disorder on Dilantin. She has diabetes and obesity, and prior history of pancreatitis. She says she has had workups in the past and has had several attacks, however her last attack has been over 6 to 7 months ago. She has been followed by Dr. Pang in the past but she has not seen him in a bit due to her noncompliance, she reports. At the present time, the patient was admitted with subacute gastrointestinal complaints, nausea, vomiting, and abdominal pain in the setting of the seizure, and had an elevated lipase. At the present time she is pain free, she is hungry, her abdomen is benign. Her lipase has gone from 3000 down to 500. Her liver enzymes are normal. I would certainly advance her diet and observe. If she is able to tolerate solid food, then she can certainly follow up as an outpatient. If she is unable to eat, then the patient should undergo followup imaging with imaging of the pancreas in specific. We will continue to be available to aid in management of this patient on an as-needed basis. Dr. Mcqueen will be available until June 11. Thank you kindly for your consultation. NICOLAS CORDOVA M.D. ROSHAN/[id number]
[2016-06-09] MEDS: INSULIN SLIDING SCALE (NOVOLOG) 1 VIAL SQ SCH ×4 (05:59→22:30)
[2016-06-09] MEDS: LEVOTHYROXINE NA 88 MCG TABLET (FP) PO SCH (06:20)
[2016-06-09] MEDS: INSULIN (NOVOLOG MIX 70/30) 100 UNITS/ML MDV SQ SCH ×2 (07:35→18:31)
[2016-06-09] MEDS ORDERED: PT OWN MED DRAWER 7, Y5N ONE (09:36)
[2016-06-09] MEDS: PHENYTOIN NA EXTENDED 100 MG CAPSULE (FP) PO SCH ×2 (11:29→22:29)
[2016-06-09] MEDS: HEPARIN NA (PORCINE) 5,000 UNITS/ML 1ML VIAL SQ SCH ×2 (11:30→22:29)
[2016-06-09] MEDS: LITHIUM CARBONATE 300 MG CAPSULE (FP) PO SCH ×2 (11:30→22:29)
--- NOTE | 2016-06-09 12:10 | PN ---
Progress Note, Physician Chief Complaint: CALM C/O DANIELS C/O NAUSEA -> TOLD TO ELEVATE HEAD IN BED - Current Medication List Current Medications: Active Medications Clonazepam (Klonopin -) 0.5 mg PO BID PRN PRN Reason: ANXIETY Stop: 06/10/16 20:23 Last Admin: 06/08/16 00:55 Dose: 0.5 mg Heparin Sodium (Porcine) (Heparin -) 5,000 unit SQ BID [facility] Last Admin: 06/09/16 11:30 Dose: Not Given Insulin Aspart (Novolog Vial Sliding Scale -) 1 vial SQ ACHS [facility] PRN Reason: Protocol Last Admin: 06/09/16 05:59 Dose: Not Given Insulin Aspart (Novolog Mix 70/30 Vial) 40 units SQ BIDAC [facility] Last Admin: 06/09/16 07:35 Dose: Not Given Levothyroxine Sodium (Synthroid -) 88 mcg PO DAILY@0700 [facility] Last Admin: 06/09/16 06:20 Dose: 88 mcg [place] Carbonate (Eskalith -) 600 mg PO BID [facility] Last Admin: 06/09/16 11:30 Dose: 600 mg Phenytoin Sodium (Dilantin -) 200 mg PO BID [facility] Last Admin: 06/09/16 11:29 Dose: 200 mg - Objective Vital Signs: Vital Signs Temperature 98.5 F 06/09/16 07:43 Pulse Rate 70 06/09/16 07:43 Respiratory Rate 16 06/09/16 07:43 Blood Pressure 114/67 06/09/16 07:43 O2 Sat by Pulse Oximetry (%) 100 06/09/16 06:00 Cardiovascular: Yes: WNL Respiratory: Yes: WNL Gastrointestinal: Yes: Tenderness. No: Tenderness, Rebound Edema: No Labs: CBC, BMP 06/08/16 06:30 06/08/16 06:30 Problem List - Problems (1) Abdominal pain Code(s): R10.9 - UNSPECIFIED ABDOMINAL PAIN (2) Asymptomatic bacteriuria Code(s): R82.71 - BACTERIURIA (3) Diabetes mellitus, insulin dependent (IDDM), uncontrolled Code(s): E10.65 - TYPE 1 DIABETES MELLITUS WITH HYPERGLYCEMIA (4) Non-compliant behavior Code(s): R46.89 - OTHER SYMPTOMS AND SIGNS INVOLVING APPEARANCE AND BEHAVIOR (5) Pancreatitis Code(s): K85.9 - ACUTE PANCREATITIS, UNSPECIFIED * DO NOT USE * Qualifiers: Chronicity: acute Pancreatitis type: unspecified pancreatitis type Acute pancreatitis complication: unspecified Qualified Code(s): K85.90 - Acute pancreatitis without necrosis or infection, unspecified (6) Seizure disorder Code(s): G40.909 - EPILEPSY, UNSP, NOT INTRACTABLE, WITHOUT STATUS EPILEPTICUS Assessment/Plan (1) Abdominal pain Code(s): R10.9 - UNSPECIFIED ABDOMINAL PAIN (2) Diabetes mellitus, insulin dependent (IDDM), uncontrolled Code(s): E10.65 - TYPE 1 DIABETES MELLITUS WITH HYPERGLYCEMIA (3) History of seizure Code(s): Z87.898 - PERSONAL HISTORY OF OTHER SPECIFIED CONDITIONS (4) Non-compliant behavior Code(s): R46.89 - OTHER SYMPTOMS AND SIGNS INVOLVING APPEARANCE AND BEHAVIOR (5) Pancreatitis Code(s): K85.9 - ACUTE PANCREATITIS, UNSPECIFIED * DO NOT USE * Qualifiers: Chronicity: acute Pancreatitis type: unspecified pancreatitis type Acute pancreatitis complication: unspecified Qualified Code(s): K85.90 - Acute pancreatitis without necrosis or infection, unspecified (6) Seizure disorder Code(s): G40.909 - EPILEPSY, UNSP, NOT INTRACTABLE, WITHOUT STATUS EPILEPTICUS (7) Abdominal pain Code(s): R10.9 - UNSPECIFIED ABDOMINAL PAIN Qualifiers: Abdominal location: epigastric Qualified Code(s): R10.13 - Epigastric pain (8) Anxiety Code(s): F41.9 - ANXIETY DISORDER, UNSPECIFIED (9) Asthma Code(s): J45.909 - UNSPECIFIED ASTHMA, UNCOMPLICATED (10) Elevated lipase Code(s): R74.8 - ABNORMAL LEVELS OF OTHER SERUM ENZYMES (11) Pancreatitis, acute Code(s): K85.9 - ACUTE PANCREATITIS, UNSPECIFIED * DO NOT USE * Qualifiers: Pancreatitis type: unspecified pancreatitis type Assessment/Plan NPO IVF GI EVAL -> OBSERVE NEUROLOGY EVAL -> DILANTIN INCREASED ENDOCRINE EVAL APPRECIATED BGM CHECK NEURO CHECKS LENS MOLD SETTER PSYCHAITRY EVAL DISCHARGE PLANNING PASTOR GIBSON
[2016-06-09] MEDS ORDERED: ACETAMINOPHEN 325 MG TABLET (FP) PO PRN (12:11)
--- NOTE | 2016-06-09 14:59 | PN ---
Progress Note (short form) - Note Progress Note: NEUROLOGY FOLLOW-UP: Events reviewed. Patient reexamined. No seizures since admission. Dilantin level now 7.7 ug % indicating she was clearly loaded in the ER. Patient confirms she was, indeed, given a second AED last week but still doesn' t know the name. Her filled the Rx but she never started it. Pt. C/O severe Headache today, refractory to tylenol. She gets these frequently, at least a few times each week. Throbbing, right occipital headaches with nausea and photophobia. ROBBIE: Obese Neuro: Non-focal with mild static encephalopathy. IMP: Migraine headaches. Possible seizure disorder. Suggest: Continue DPH 200 mg PO q 12 hrs. Do NOT start 2nd AED at home (probably levetiracetam). Instead- Start topiramate 50 mg q HS x 2 days then 50 mg PO q 12 hrs (with DPH) for DANIELS's, seizures and Wt. loss. Neuro f/u as out patient. Thank you very much, Segundo Donaldson MD
[2016-06-09] MEDS: TOPIRAMATE 25 MG TABLET (FP) PO SCH (22:29)
[2016-06-10] MEDS: LEVOTHYROXINE NA 88 MCG TABLET (FP) PO SCH (06:37)
[2016-06-10] MEDS: INSULIN (NOVOLOG MIX 70/30) 100 UNITS/ML MDV SQ SCH (06:38)
[2016-06-10] MEDS: INSULIN SLIDING SCALE (NOVOLOG) 1 VIAL SQ SCH ×2 (06:39→12:11)
[2016-06-10 08:28] LABS: BASOPHIL 0.8 % (0-2.0); EOSINOPHIL 3.2 % (0-4.5); MCH 26.9 pg (25.7-33.7); MCHC 33.2 g/dl (32.0-36.0); MEAN CELL VOLUME 81.2 fl (80-96); MEAN PLT VOLUME 8.7 fl (7.5-11.1); NEUTROPHILS 59.2 % (42.8-82.8); PLATELET COUNT 234 K/MM3 (134-434); RDW 14.2 % (11.6-15.6); WHITE BLOOD COUNT 9.7 K/mm3 (4.0-10.0)
[2016-06-10 08:49] LABS: ALBUMIN 3.1 g/dl (3.4-5.0); ANION GAP 8 (8-16); CALCIUM 9.1 mg/dL (8.5-10.1); CO2 27 mmol/L (21-32); CREATININE 0.7 mg/dL (0.55-1.02); GLUCOSE,RANDOM 298 mg/dL (74-106); SGOT/AST 8 U/L (15-37); SGPT/ALT 10 U/L (12-78)
[2016-06-10 08:51] LABS: ALK PHOS 98 U/L (45-117); BILIRUBIN,TOTAL 0.2 mg/dL (0.2-1.0); TOT PROT 7.3 g/dl (6.4-8.2)
[2016-06-10] MEDS: HEPARIN NA (PORCINE) 5,000 UNITS/ML 1ML VIAL SQ SCH (09:22)
[2016-06-10] MEDS: PHENYTOIN NA EXTENDED 100 MG CAPSULE (FP) PO SCH (09:22)
[2016-06-10] MEDS: TOPIRAMATE 25 MG TABLET (FP) PO SCH (09:22)
[2016-06-10] MEDS: LITHIUM CARBONATE 300 MG CAPSULE (FP) PO SCH (09:22)
[2016-06-10] MEDS ORDERED: INSULIN (NOVOLOG MIX 70/30) 100 UNITS/ML MDV SQ SCH (10:33)
--- NOTE | 2016-06-10 10:34 | PN ---
[id number] (Tylenol -) 650 mg PO Q6H PRN PRN Reason: FEVER OR PAIN Last Admin: 06/09/16 12:53 Dose: 650 mg Clonazepam (Klonopin -) 0.5 mg PO BID PRN PRN Reason: ANXIETY Stop: 06/10/16 20:23 Last Admin: 06/08/16 00:55 Dose: 0.5 mg Heparin Sodium (Porcine) (Heparin -) 5,000 unit SQ BID [facility] Last Admin: 06/10/16 09:22 Dose: Not Given Insulin Aspart (Novolog Vial Sliding Scale -) 1 vial SQ ACHS [facility] PRN Reason: Protocol Last Admin: 06/10/16 06:39 Dose: 6 units Levothyroxine Sodium (Synthroid -) 88 mcg PO DAILY@0700 [facility] Last Admin: 06/10/16 06:37 Dose: 88 mcg [place] Carbonate (Eskalith -) 600 mg PO BID [facility] Last Admin: 06/10/16 09:22 Dose: 600 mg Phenytoin Sodium (Dilantin -) 200 mg PO BID [facility] Last Admin: 06/10/16 09:22 Dose: 200 mg Topiramate (Topamax -) 25 mg PO BID [facility] Last Admin: 06/10/16 09:22 Dose: 25 mg - Objective Vital Signs: Vital Signs Temperature 97.9 F 06/09/16 18:00 Pulse Rate 80 06/09/16 18:00 Respiratory Rate 18 06/09/16 21:00 Blood Pressure 111/75 06/09/16 18:00 O2 Sat by Pulse Oximetry (%) 100 06/09/16 21:00 Neck: Yes: WNL Cardiovascular: Yes: WNL Respiratory: Yes: WNL Gastrointestinal: Yes: WNL Labs: CBC, BMP 06/10/16 06:30 06/10/16 06:30 Problem List - Problems (1) Abdominal pain Code(s): R10.9 - UNSPECIFIED ABDOMINAL PAIN (2) Asymptomatic bacteriuria Code(s): R82.71 - BACTERIURIA (3) Diabetes mellitus, insulin dependent (IDDM), uncontrolled Code(s): E10.65 - TYPE 1 DIABETES MELLITUS WITH HYPERGLYCEMIA (4) Non-compliant behavior Code(s): R46.89 - OTHER SYMPTOMS AND SIGNS INVOLVING APPEARANCE AND BEHAVIOR (5) Pancreatitis Code(s): K85.9 - ACUTE PANCREATITIS, UNSPECIFIED * DO NOT USE * Qualifiers: Chronicity: acute Pancreatitis type: unspecified pancreatitis type Acute pancreatitis complication: unspecified Qualified Code(s): K85.90 - Acute pancreatitis without necrosis or infection, unspecified (6) Seizure disorder Code(s): G40.909 - EPILEPSY, UNSP, NOT INTRACTABLE, WITHOUT STATUS EPILEPTICUS Assessment/Plan (1) Abdominal pain Code(s): R10.9 - UNSPECIFIED ABDOMINAL PAIN (2) Diabetes mellitus, insulin dependent (IDDM), uncontrolled Code(s): E10.65 - TYPE 1 DIABETES MELLITUS WITH HYPERGLYCEMIA (3) History of seizure Code(s): Z87.898 - PERSONAL HISTORY OF OTHER SPECIFIED CONDITIONS (4) Non-compliant behavior Code(s): R46.89 - OTHER SYMPTOMS AND SIGNS INVOLVING APPEARANCE AND BEHAVIOR (5) Pancreatitis Code(s): K85.9 - ACUTE PANCREATITIS, UNSPECIFIED * DO NOT USE * Qualifiers: Chronicity: acute Pancreatitis type: unspecified pancreatitis type Acute pancreatitis complication: unspecified Qualified Code(s): K85.90 - Acute pancreatitis without necrosis or infection, unspecified (6) Seizure disorder Code(s): G40.909 - EPILEPSY, UNSP, NOT INTRACTABLE, WITHOUT STATUS EPILEPTICUS (7) Abdominal pain Code(s): R10.9 - UNSPECIFIED ABDOMINAL PAIN Qualifiers: Abdominal location: epigastric Qualified Code(s): R10.13 - Epigastric pain (8) Anxiety Code(s): F41.9 - ANXIETY DISORDER, UNSPECIFIED (9) Asthma Code(s): J45.909 - UNSPECIFIED ASTHMA, UNCOMPLICATED (10) Elevated lipase Code(s): R74.8 - ABNORMAL LEVELS OF OTHER SERUM ENZYMES (11) Pancreatitis, acute Code(s): K85.9 - ACUTE PANCREATITIS, UNSPECIFIED * DO NOT USE * Qualifiers: Pancreatitis type: unspecified pancreatitis type Assessment/Plan GI EVAL -> OBSERVE NEUROLOGY EVAL -> DILANTIN INCREASED & TOPAMAX ADDED ENDOCRINE EVAL APPRECIATED BGM CHECK -> INSULIN INCREASED NEURO CHECKS MANAGING DIRECTOR PSYCHAITRY EVAL DISCHARGE PLANNING PASTOR GIBSON
[2016-06-10 11:00] VITALS: BP 120/68; PULSE 76; TEMP 98.7
--- NOTE | 2016-06-10 11:03 | DS ---
Physical Examination Vital Signs: Vital Signs Temperature 97.9 F 06/09/16 18:00 Pulse Rate 80 06/09/16 18:00 Respiratory Rate 18 06/09/16 21:00 Blood Pressure 111/75 06/09/16 18:00 O2 Sat by Pulse Oximetry (%) 100 06/09/16 21:00 Findings/Remarks: ANXIOUS TO GO HOME WANTS TO GO "SO CAN SLEEP" PROMISES TO SEE PCP EARLY NEXT WEEK TO F/U TOLERATING PO Constitutional: Yes: Calm HENT: Yes: WNL Neck: Yes: WNL Cardiovascular: Yes: WNL Respiratory: Yes: WNL Gastrointestinal: Yes: WNL Edema: No Neurological: Yes: WNL Psychiatric: Yes: WNL Labs: CBC, BMP 06/10/16 06:30 06/10/16 06:30 Discharge Summary Reason For Visit: PANCREATITIS, SEIZURE Current Active Problems Abdominal pain (Acute) Asymptomatic bacteriuria (Acute) Diabetes mellitus, insulin dependent (IDDM), uncontrolled (Acute) History of seizure (Acute) Non-compliant behavior (Acute) Pancreatitis (Acute) Seizure disorder (Acute) Subtherapeutic serum dilantin level (Acute) UTI (lower urinary tract infection) (Acute) Hospital Course: (1) Abdominal pain Code(s): R10.9 - UNSPECIFIED ABDOMINAL PAIN (2) Diabetes mellitus, insulin dependent (IDDM), uncontrolled Code(s): E10.65 - TYPE 1 DIABETES MELLITUS WITH HYPERGLYCEMIA (3) History of seizure Code(s): Z87.898 - PERSONAL HISTORY OF OTHER SPECIFIED CONDITIONS (4) Non-compliant behavior Code(s): R46.89 - OTHER SYMPTOMS AND SIGNS INVOLVING APPEARANCE AND BEHAVIOR (5) Pancreatitis Code(s): K85.9 - ACUTE PANCREATITIS, UNSPECIFIED * DO NOT USE * Qualifiers: Chronicity: acute Pancreatitis type: unspecified pancreatitis type Acute pancreatitis complication: unspecified Qualified Code(s): K85.90 - Acute pancreatitis without necrosis or infection, unspecified (6) Seizure disorder Code(s): G40.909 - EPILEPSY, UNSP, NOT INTRACTABLE, WITHOUT STATUS EPILEPTICUS (7) Abdominal pain Code(s): R10.9 - UNSPECIFIED ABDOMINAL PAIN Qualifiers: Abdominal location: epigastric Qualified Code(s): R10.13 - Epigastric pain (8) Anxiety Code(s): F41.9 - ANXIETY DISORDER, UNSPECIFIED (9) Asthma Code(s): J45.909 - UNSPECIFIED ASTHMA, UNCOMPLICATED (10) Elevated lipase Code(s): R74.8 - ABNORMAL LEVELS OF OTHER SERUM ENZYMES (11) Pancreatitis, acute Code(s): K85.9 - ACUTE PANCREATITIS, UNSPECIFIED * DO NOT USE * Qualifiers: Pancreatitis type: unspecified pancreatitis type Assessment/Plan GI EVAL -> OBSERVE WILL F/U WITH PCP TO MONITOR PENDING LABS NEUROLOGY EVAL -> DILANTIN INCREASED & TOPAMAX ADDED ENDOCRINE EVAL APPRECIATED BGM CHECK INSULIN INCREASED -> PROMISES TO SEE PCP TO OPTIMIZE BS CONTROL LOW CARB/HEALTHY DIET STRESSED -> NEEDS REINFORCEMENT BY PCP 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 Condition: Improved - Instructions Referrals: Trey Richardson MD [Primary Care Provider] - - Home Medications Comprehensive Discharge Medication List: Ambulatory Orders Albuterol Sulfate Inhaler - [Ventolin HFA Inhaler -] 1 puff IH Q8H 03/22/16 Insulin Lispro Protamin/Lispro [Humalog Mix 75-25 Kwikpen] 50 unit SQ BID Levothyroxine Sodium [Synthroid] 88 mcg PO DAILY 03/22/16 [place] Carbonate [Eskalith -] 600 mg PO BID 03/22/16 Phenytoin Na Extended [Dilantin -] 100 mg PO TID 03/22/16 Clonazepam [Klonopin -] 0.5 mg PO BID PRN 05/23/16 Nitrofurantoin Monohyd/M-Cryst [Macrobid -] 100 mg PO BID #14 capsule 05/23/16 Erythromycin 0.5% Eye Ointment [Erythromycin 0.5% Eye Ointment -] 1 applic OS QID #1 tube MDD 4 05/31/16
== END 2016-06-10 12:58 | disposition home or self-care (01) | DRG 438 ==
LOC: JER 14:51 → JERBED 21:02 → J8W 22:52
PROVIDERS: ADMIT Family Medicine; ATTEND Family Medicine
DX: K85.90 Acute pancreatitis without necrosis or infection, unspecified (principal); G93.49 Other encephalopathy; F31.89 Other bipolar disorder; G40.802 Other epilepsy, not intractable, without status epilepticus; N39.0 Urinary tract infection, site not specified; J45.909 Unspecified asthma, uncomplicated; E03.9 Hypothyroidism, unspecified; F41.8 Other specified anxiety disorders; R82.71 Bacteriuria; R74.8 Abnormal levels of other serum enzymes; E10.65 Type 1 diabetes mellitus with hyperglycemia; G43.809 Other migraine, not intractable, without status migrainosus; R46.89 Other symptoms and signs involving appearance and behavior; E66.8 Other obesity; Z68.31 Body mass index [BMI] 31.0-31.9, adult; Z71.3 Dietary counseling and surveillance; Z79.4 Long term (current) use of insulin
CPT/HCPCS: 36415; 76705-TC; 80053; 80178; 80185; 81003; 81015; 83690; 84439; 84443; 84703; 85025; 87040; 87086; 87186; 99282-25; J1644

== ENCOUNTER 2016-06-24 18:34 | Emergency (ER) | payer OTHER ==
[2016-06-24 18:39] VITALS: TEMP 99.1; BMI 30.4
[2016-06-24] MEDS ORDERED: SODIUM CHLORIDE 500 ML IV STA (19:32)
[2016-06-24 19:57] LABS: URINE APPEARANCE CLEAR; URINE BILIRUBIN NEGATIVE (NEGATIVE); URINE BLOOD NEGATIVE (NEGATIVE); URINE COLOR COLORLESS; URINE GLUCOSE (UA) 3+ (NEGATIVE); URINE KETONE NEGATIVE (NEGATIVE); URINE NITRITE NEGATIVE (NEGATIVE); URINE PROTEIN NEGATIVE (NEGATIVE); URINE UROBILINOGEN NEGATIVE E.U./dl (0.2-1.0)
[2016-06-24 19:58] LABS: BASOPHIL 1.2 % (0-2.0); EOSINOPHIL 2.4 % (0-4.5); MCH 27.2 pg (25.7-33.7); MEAN CELL VOLUME 80.2 fl (80-96); MEAN PLT VOLUME 8.5 fl (7.5-11.1); NEUTROPHILS 62.5 % (42.8-82.8); PLATELET COUNT 175 K/MM3 (134-434); RDW 14.1 % (11.6-15.6); WHITE BLOOD COUNT 7.9 K/mm3 (4.0-10.0)
[2016-06-24 20:03] LABS: URINE LEUK ESTERASE 2+ (NEGATIVE)
[2016-06-24 20:09] LABS: URINE RBC 4 /hpf (0-3); URINE WBC 7 /hpf (3-5)
[2016-06-24 20:19] LABS: ALBUMIN 3.5 g/dl (3.4-5.0); ALK PHOS 114 U/L (45-117); AMYLASE 41 U/L (25-115); ANION GAP 12 (8-16); BILIRUBIN,TOTAL 0.5 mg/dL (0.2-1.0); CALCIUM 9.1 mg/dL (8.5-10.1); CO2 23 mmol/L (21-32); COCKROFT - GAULT 155.2865; CREATININE 0.8 mg/dL (0.55-1.02); SGOT/AST 8 U/L (15-37); SGPT/ALT 20 U/L (12-78); TOT PROT 7.7 g/dl (6.4-8.2)
[2016-06-24 20:21] LABS: GLUCOSE,RANDOM 452 mg/dL (74-106)
[2016-06-24] MEDS ORDERED: SODIUM CHLORIDE 1,000 ML IV STA (20:37)
--- NOTE | 2016-06-24 21:01 | PDOC ---
History of Present Illness - General Chief Complaint: Seizure Stated Complaint: SEIZURE Time Seen by Provider: 06/24/16 19:19 History Source: Patient Exam Limitations: No Limitations - History of Present Illness Initial Comments: 06/24/16 20:54 25yo Female patient w/ PmHx: DM, Seizures presents to ED c/o multiple seizures this past week. Patient states having a total of 6 focal seizures, and last seizures was today at 6pm. Patient reports she has an appointment with Dr. Donaldson later this month. Patient was recently admitted to this hospital 06-07. She denies n/v/d, fever, abd pain, back pain, diff breathing, rash, or any other complaints at this time. LNMP: June 10. Patient also reports that her medications have been changed: 1. Keppra 500 mg BID 2. Risperidone 2 mg daily 3. Clonazepam 1 mg BID 4. Topamax 25 mg BID 5. [place] Carbonate 600 mg BID 6. Humalog Pen 50 units BID 7. Ventolin INH every 4 hours as needed. 8. Synthroid 88 mg daily 9. Dilantin 100 mg TID 10. Claritin 10 mg daily 11. Clomid 50 mg daily Timing/Duration: reports: 1 week, increasing Severity: Yes: mild Associated Symptoms: denies: denies symptoms, confusion, fatigue, fever/chills, insomnia, loss of consciousness, muscle spasms, nausea/vomiting, numbness in legs/feet, paresthesia, ringing in ears, seizures, sleepy, slurred speech, tingling in legs/feet, trouble walking, vision changes, weakness, other Past History - Travel Traveled outside of the country in the last 30 days: No Close contact w/someone who was outside of country & ill: No - Past Medical History Allergies/Adverse Reactions: Allergies Allergy/AdvReac Type Severity Reaction Status Date / Time No Known Drug Allergies Allergy Verified 06/24/16 18:38 SEAFOOD Allergy Severe ANAPHYLAXIS Uncoded 06/24/16 18:38 Home Medications: Ambulatory Orders Albuterol Sulfate Inhaler - [Ventolin HFA Inhaler -] 1 puff IH Q8H 03/22/16 Levothyroxine Sodium [Synthroid] 88 mcg PO DAILY 03/22/16 [place] Carbonate [Eskalith -] 600 mg PO BID 03/22/16 Clonazepam [Klonopin -] 0.5 mg PO BID PRN 05/23/16 Acetaminophen [Tylenol .Regular Strength -] 650 mg PO Q6H PRN #0 tablet Insulin (Novolog 70/30) [Novolog Mix 70/30 Vial -] 46 units SQ BIDAC vial 06/10 Phenytoin Na Extended [Dilantin -] 200 mg PO BID #120 06/10/16 Topiramate [Topamax -] 25 mg PO BID #60 tablet 06/10/16 Anemia: No Asthma: Yes Cancer: No Cardiac Disorders: Yes (RAPID HEARTBEAT HX) CVA: No COPD: No CHF: Yes Dementia: No Diabetes: Yes GI Disorders: Yes (h/o PANCREATITIS.) Disorders: No HTN: No Hypercholesterolemia: No Liver Disease: No Psychiatric Problems: Yes (anxiety, bipolar) Suicide Attempt (Hx): No Seizures: Yes Thyroid Disease: Yes - Surgical History Abdominal Surgery: No Appendectomy: No Cardiac Surgery: No Cholecystectomy: No Lung Surgery: No Neurologic Surgery: No Orthopedic Surgery: No - Family Disease History Family Disease History: Heart Disease: Grandparents - Reproductive History (#): 1 Para: 0 Cervical CA: No Dysfunctional Uterine Bleeding: No Ectopic : No Endometrial CA: No Polycystic Ovaries: No Therapeutic (s) & number: No Tubal Ligation: No Spontaneous : 1 - Immunization History Immunization Up to Date: Yes - Psycho/Social/Smoking Cessation Hx Anxiety: No Suicidal Ideation: No Smoking Status: Yes Smoking History: Never smoked Have you smoked in the past 12 months: No Number of Cigarettes Smoked Daily: 0 If you are a former smoker, when did you quit?: 2011 'Breaking Loose' booklet given: 03/11/12 Hx Alcohol Use: No Drug/Substance Use Hx: No Substance Use Type: None Hx Substance Use Treatment: No Neuro Specific PMHX - Complaint Specific PMHX Glaucoma: No Herniated Disk: No Laminectomy: No Migraine: No Multiple Sclerosis: No Neuropathy: No TIA: No Review of Systems - Review of Systems Able to Perform ROS?: Yes Is the patient limited Korean proficient: No Constitutional: No: Chills, Fever, Malaise, Weakness HEENTM: No: Eye Pain, Blurred Vision, Double Vision, Nose Bleeding, Throat Pain , Difficulty Swallowing Respiratory: No: Cough, Shortness of Breath, Stridor, Wheezing, Hemoptysis Cardiac (ROS): No: Chest Pain, Edema, Lightheadedness, Palpitations, Syncope, Chest Tightness ABD/GI: No: Diarrhea, Nausea, Poor Appetite, Poor Fluid Intake, Rectal Bleeding , Vomiting : No: Burning, Dysuria, Hematuria, Pain, Urgency Musculoskeletal: No: Back Pain, Muscle Weakness Integumentary: No: Bruising, Erythema, Rash, Sweating Neurological: Yes: Seizure. No: Headache, Numbness, Paresthesia, Tingling, Tremors, Weakness, Unsteady Gait, Ataxia, Dizziness All Other Systems: Reviewed and Negative *Physical Exam - Vital Signs Last Vital Signs Temp Pulse Resp BP Pulse Ox 99.1 F 87 20 127/81 96 06/24/16 18:34 06/24/16 18:34 06/24/16 18:34 06/24/16 18:34 06/24/16 18:34 - Physical Exam General Appearance: Yes: Nourished, Appropriately Dressed. No: Apparent Distress, Mild Distress, Moderate Distress, Severe Distress HEENT: positive: EOMI, MARISELA, Normal ENT Inspection, Normal Voice, Symmetrical, TMs Normal, Pharynx Normal. negative: Pharyngeal Erythema, Tonsillar Exudate, Tonsillar Erythema, Nasal Congestion, Rhinorrhea, TM Bulging, TM Dull, TM Erythema Neck: positive: Trachea midline, Supple. negative: Stridor, Lymphadenopathy (R) , Lymphadenopathy (L) Respiratory/Chest: positive: Lungs Clear, Normal Breath Sounds. negative: Respiratory Distress, Accessory Muscle Use, Labored Respiration, Rapid RR, Rhonchi, Stridor, Wheezing Cardiovascular: positive: Regular Rhythm, Regular Rate. negative: Edema, JVD, Murmur Gastrointestinal/Abdominal: positive: Normal Bowel Sounds, Soft. negative: Distended, Guarding, Rebound, Tenderness Musculoskeletal: positive: Normal Inspection. negative: CVA Tenderness Extremity: positive: Normal Capillary Refill, Normal Inspection, Normal Range of Motion. negative: Swelling, Calf Tenderness, Erythema, Inflammation Integumentary: positive: Normal Color, Dry, Warm. 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, Fully Oriented, Alert, Normal Mood/ Affect, Normal Response, Motor Strength 07/20 ED Treatment Course - LABORATORY CBC & Chemistry Diagram: 06/24/16 19:46 06/24/16 19:33 - ADDITIONAL ORDERS Additional order review: Laboratory Results 06/24/16 06/24/16 06/24/16 19:46 19:33 19:33 Sodium 134 L Potassium 4.2 Chloride 99 Carbon Dioxide 23 Anion Gap 12 BUN 6 L D Creatinine 0.8 Creat Clearance w eGFR > 60 Random Glucose 452 H* D Calcium 9.1 Total Bilirubin 0.5 D AST 8 L ALT 20 D Alkaline Phosphatase 114 Total Protein 7.7 Albumin 3.5 Total Amylase 41 D Lipase 386 Urine Color Colorless Urine Appearance Clear Urine pH 7.0 Ur Specific [place] 1.018 Urine Protein Negative Urine Glucose (UA) 3+ H Urine Ketones Negative Urine Blood Negative Urine Nitrite Negative Urine Bilirubin Negative Urine Urobilinogen Negative Ur Leukocyte Esterase 2+ H Urine RBC 4 Urine WBC 7 Ur Epithelial Cells Rare Urine HCG, Qual Negative Phenytoin < 2.5 L D 06/24/16 19:46 RBC 4.91 MCV 80.2 MCHC 34.0 RDW 14.1 MPV 8.5 Neutrophils % 62.5 Lymphocytes % 21.4 D Monocytes % 12.5 H D Eosinophils % 2.4 Basophils % 1.2 - Medications Given in the ED: ED Medications Discontinued Medications Generic Name Dose Route Start Last Admin Trade Name Freq PRN Reason Stop Dose Admin Sodium Chloride 500 mls @ 500 mls/hr 06/24/16 19:32 06/24/16 19:56 Normal Saline - IV 06/24/16 20:31 500 mls/hr ASDIR STA Administration Progress Note - Progress Note Progress Note: Patient walked over to nurses station stating she feels fine and would like to be discharge. I informed patient I wanted to repeat some blood work and patient became upset and stated, " See this is why I dont come to the hospital." I spoke with patient privately in her room and she is requesting to be d/c'd. Patient instructed patient to follow up with her Neurologist and PCP this week for further evaluation. *DC/Admit/Observation/Transfer Diagnosis at time of Disposition: Hyperglycemia, Seizure disorder - Discharge Dispostion Disposition: HOME Condition at time of disposition: Improved Admit: No - Patient Instructions Printed Discharge Instructions: DI for Hyperglycemia -- Adult Additional Instructions: FOLLOW UP WITH DR. SUAREZ THIS WEEK AND ALL YOUR SPECIALIST DISCUSSED. TAKE YOUR MEDICATIONS PRESCRIBED. CHECK YOU BLOOD SUGAR THREE TIMES A DAY AND BEFORE MEALS. DRINK PLENTY WATER. Print Language: FAROESE
[2016-06-24] MEDS ORDERED: PHENYTOIN SODIUM 100 MG/2 ML VIAL IVPB ONE (21:15)
[2016-06-24] MEDS ORDERED: INSULIN REGULAR HUMAN 100 UNITS/ML *VIAL SQ ONE (21:16)
[2016-06-24] MEDS ORDERED: levETIRAcetam 500 MG/5 ML INJECTION VIAL IVPB ONE (21:21)
[2016-06-24] MEDS ORDERED: NITROFURANTOIN MACROCRYSTAL 50 MG CAPSULE (FP) PO SCH (21:30)
[2016-06-24 22:44] VITALS: BP 128/84; PULSE 89
[2016-06-26 06:06] LABS: LITHIUM 0.7 mmol/L (0.6-1.2)
[2016-06-27 14:21] LABS: LEVETIRACETAM (KEPPRA) 3.9 ug/mL (10.0-40.0)
== END 2016-06-24 22:44 | disposition home or self-care (01) ==
LOC: JER 18:34
DX: G40.909 Epilepsy, unspecified, not intractable, without status epilepticus (principal); E10.65 Type 1 diabetes mellitus with hyperglycemia; Z79.4 Long term (current) use of insulin; F41.8 Other specified anxiety disorders; E03.9 Hypothyroidism, unspecified; J45.909 Unspecified asthma, uncomplicated
CPT/HCPCS: 36415; 80053; 80178; 80185; 81003; 81015; 82150; 83690; 84703; 85025; 99283-25

== ENCOUNTER 2016-07-07 16:37 | Emergency (ER) | payer OTHER ==
[2016-07-07 16:48] VITALS: BP 128/72; PULSE 88; TEMP 98.6; BMI 30.4
--- NOTE | 2016-07-07 17:01 | PDOC ---
History of Present Illness - General History Source: Patient Exam Limitations: No Limitations - History of Present Illness Initial Comments: CHIEF COMPLAINT: 25 y/o afebrile female with PMH hypothyroidism, seizures, migraines, IDDM c/o 1 episode of vomiting today. HISTORY OF PRESENT ILLNESS: The patient states she ate 2 bites of a sandwich today, experienced some abdominal pain and then vomited 1 time. She states she no longer has any abdominal pain. She admits her LMP was 3/1 and she would really like a test. She also admits she's had fevers and diarrhea for the past 2 days. She has been taking tylenol for her fever. She denies DANIELS , neck pain, cough, runny nose, CP, SOB< back pain, hematuria, dysuria. Vital signs on arrival are within normal limits. REVIEW OF SYSTEMS: GENERAL/CONSTITUTIONAL: +fever. No weakness. No weight change. HEAD, EYES, EARS, NOSE AND THROAT: No change in vision. No ear pain or discharge. No sore throat. CARDIOVASCULAR: No chest pain or shortness of breath. RESPIRATORY: No cough, wheezing, or hemoptysis. GASTROINTESTINAL: +1 episode of vomiting. +abdominal pain (resolved). + diarrhea. GENITOURINARY: No dysuria, frequency, or change in urination. MUSCULOSKELETAL: No joint or muscle swelling or pain. No neck or back pain. SKIN: No rash or easy bruising. NEUROLOGIC: No headache, vertigo, loss of consciousness, or loss of sensation. PHYSICAL EXAM: GENERAL: The patient is awake, alert, and fully oriented, in no acute distress. she is well appearing and ambulatory. HEAD: Normal with no signs of trauma. ENT: Pupils equal, round and reactive to light, extraocular movements intact, sclera anicteric, conjunctiva clear. Neck supple. Mucous membranes moist. LUNGS: Clear to auscultation bilaterally. Normal excursion. No respiratory distress or use of accessory muscles. CV: RRR, S1/S2, no MRG. Cap refill < 2 sec. ABDOMEN: Soft, non-distended, non-tender even to deep palpation, no hepatomegaly or splenomegaly, no masses. No rebound, guarding or rigidity. EXTREMITIES: Normal range of motion, no edema. NEUROLOGICAL: Normal speech, normal gait. CN II-XII grossly intact. PSYCH: Normal mood, normal affect. SKIN: Warm, dry, normal turgor, no rashes or lesions noted. <Meg Alva - Last Filed: 07/07/16 18:25> <Reji Alvarado - Last Filed: 07/07/16 21:55> - General Chief Complaint: Nausea/Vomiting Stated Complaint: ABDOMINAL PAIN Time Seen by Provider: 07/07/16 16:49 Past History - Past Medical History Anemia: No Asthma: Yes Cancer: No Cardiac Disorders: Yes (RAPID HEARTBEAT HX) CVA: No COPD: No CHF: Yes Dementia: No Diabetes: Yes GI Disorders: Yes (h/o PANCREATITIS.) Disorders: No HTN: No Hypercholesterolemia: No Liver Disease: No Psychiatric Problems: Yes (anxiety, bipolar) Suicide Attempt (Hx): No Seizures: Yes Thyroid Disease: Yes - Surgical History Abdominal Surgery: No Appendectomy: No Cardiac Surgery: No Cholecystectomy: No Lung Surgery: No Neurologic Surgery: No Orthopedic Surgery: No - Family Disease History Family Disease History: Heart Disease: Grandparents - Reproductive History (#): 1 Para: 0 Cervical CA: No Dysfunctional Uterine Bleeding: No Ectopic : No Endometrial CA: No Polycystic Ovaries: No Therapeutic (s) & number: No Tubal Ligation: No Spontaneous : 1 - Immunization History Immunization Up to Date: Yes - Psycho/Social/Smoking Cessation Hx Anxiety: No Suicidal Ideation: No Smoking Status: Yes Smoking History: Never smoked Have you smoked in the past 12 months: No Number of Cigarettes Smoked Daily: 0 If you are a former smoker, when did you quit?: 2011 Information on smoking cessation initiated: No 'Breaking Loose' booklet given: 03/11/12 Hx Alcohol Use: No Drug/Substance Use Hx: No Substance Use Type: None Hx Substance Use Treatment: No <Meg Alva - Last Filed: 07/07/16 18:25> <Reji Alvarado - Last Filed: 07/07/16 21:55> - Past Medical History Allergies/Adverse Reactions: Allergies Allergy/AdvReac Type Severity Reaction Status Date / Time No Known Drug Allergies Allergy Verified 07/07/16 16:45 SEAFOOD Allergy Severe ANAPHYLAXIS Uncoded 07/07/16 16:45 Home Medications: Ambulatory Orders Albuterol Sulfate Inhaler - [Ventolin HFA Inhaler -] 1 puff IH Q8H 03/22/16 Levothyroxine Sodium [Synthroid] 88 mcg PO DAILY 03/22/16 [place] Carbonate [Eskalith -] 600 mg PO BID 03/22/16 Clonazepam [Klonopin -] 0.5 mg PO BID PRN 05/23/16 Acetaminophen [Tylenol .Regular Strength -] 650 mg PO Q6H PRN #0 tablet Insulin (Novolog 70/30) [Novolog Mix 70/30 Vial -] 46 units SQ BIDAC vial 06/10 Phenytoin Na Extended [Dilantin -] 200 mg PO BID #120 06/10/16 Topiramate [Topamax -] 25 mg PO BID #60 tablet 06/10/16 Abd/GI Specific PMHX - Complaint Specific PMHX Pancreatitis: Yes <Meg Alva - Last Filed: 07/07/16 18:25> *Physical Exam - Vital Signs Last Vital Signs Temp Pulse Resp BP Pulse Ox 98.6 F 88 19 128/72 100 07/07/16 16:45 07/07/16 16:45 07/07/16 16:45 07/07/16 16:45 07/07/16 16:45 <Meg Alva - Last Filed: 07/07/16 18:25> - Vital Signs Last Vital Signs Temp Pulse Resp BP Pulse Ox 98.6 F 88 19 128/72 100 07/07/16 16:45 07/07/16 16:45 07/07/16 16:45 07/07/16 16:45 07/07/16 16:45 <Reji Alvarado - Last Filed: 07/07/16 21:55> ED Treatment Course - LABORATORY CBC & Chemistry Diagram: 07/07/16 17:30 07/07/16 17:30 <Meg Alva - Last Filed: 07/07/16 18:25> - LABORATORY CBC & Chemistry Diagram: 07/07/16 17:30 07/07/16 17:30 - ADDITIONAL ORDERS Additional order review: Laboratory Results 07/07/16 07/07/16 07/07/16 17:48 17:30 16:54 Sodium 135 L Potassium 4.0 Chloride 101 Carbon Dioxide 26 Anion Gap 8 BUN 4 L D Creatinine 0.7 Creat Clearance w eGFR > 60 Random Glucose 460 H* Calcium 8.2 L Total Bilirubin 0.6 AST 40 H D ALT 31 D Alkaline Phosphatase 95 Total Protein 6.6 Albumin 2.6 L D Urine Color Lty[place] Urine Appearance Clear Urine pH 6.0 Ur Specific [place] 1.028 Urine Protein Negative Urine Glucose (UA) 3+ H Urine Ketones Trace H Urine Blood 2+ H Urine Nitrite Negative Urine Bilirubin Negative Urine Urobilinogen Negative Ur Leukocyte Esterase Trace H D Urine RBC 13 Urine WBC 5 Ur Epithelial Cells Few Urine Mucus Rare Urine HCG, Qual Negative Acetone, Qual Trace H 07/07/16 17:30 RBC 4.47 MCV 81.4 MCHC 33.4 RDW 15.3 MPV 9.2 Neutrophils % 28.0 L D Lymphocytes % 48.0 H D Monocytes % 14.0 H Eosinophils % 1.0 - Medications Given in the ED: ED Medications Discontinued Medications Generic Name Dose Route Start Last Admin Trade Name Freq PRN Reason Stop Dose Admin Sodium Chloride 1,000 mls @ 1,000 mls/hr 07/07/16 17:21 07/07/16 17:31 Normal Saline - IV 07/07/16 18:20 1,000 mls/hr ASDIR STA Administration Sodium Chloride 1,000 mls @ 1,000 mls/hr 07/07/16 18:09 07/07/16 19:01 Normal Saline - IV 07/07/16 19:08 1,000 mls/hr ASDIR STA Administration Sodium Chloride 500 mls @ 500 mls/hr 07/07/16 19:39 07/07/16 19:49 Normal Saline - IV 07/07/16 20:38 500 mls/hr ASDIR STA Administration Insulin Human Regular 10 units 07/07/16 18:09 07/07/16 18:12 Novolin R Vial *For Ivpush Or Iv Drip Only* IVPUSH 07/07/16 18:10 10 units ONCE ONE Administration Ondansetron HCl 4 mg 07/07/16 17:18 07/07/16 19:07 Zofran Odt - SL 07/07/16 17:19 Not Given ONCE ONE Ondansetron HCl 4 mg 07/07/16 17:21 07/07/16 17:31 Zofran Injection IVPUSH 07/07/16 17:22 Not Given ONCE ONE <Reji Alvarado Last Filed: 07/07/16 21:55> Progress Note - Progress Note Progress Note: REPEAT FSBS 306. PLAN: D/C HOME. <Reji Alvarado D - Last Filed: 07/07/16 21:55> Medical Decision Making - Medical Decision Making A/P: 25 y/o afebrile female with PMH depression, seizures, migraines, IDDM c/o 1 episode of vomiting today with fever and diarrhea for the past 2 days. Given her history, plan is as follows: 1. UA/hcg 2. Labs 3. IV fluids hcg - negative 4. IV zofran Glucose - 460 Trace acetone 2nd bag IV fluids ordered 10 units regular insulin ordered I am signing this patient out to my colleague: BRODERICK Alvarado In brief, this patient is being seen in the ED for a chief complaint of: 1 episode of vomiting; wanted test I have completed the initial assessment interview note and have ordered: labs, UA, IV fluids, insulin, zofran I have reviewed the following results: all Pending results are: repeat comp Please call the PCP: Dr. Richardson Plan for disposition is as follows: Pending <Meg Alva - Last Filed: 07/07/16 18:25> *DC/Admit/Observation/Transfer <Meg Alva - Last Filed: 07/07/16 18:25> - Discharge Dispostion Admit: No <Reji Alvarado D - Last Filed: 07/07/16 21:55> Diagnosis at time of Disposition: Hyperglycemia - Discharge Dispostion Disposition: HOME Condition at time of disposition: Improved - Patient Instructions Printed Discharge Instructions: DI for Hyperglycemia -- Adult Additional Instructions: FOLLOW UP WITH YOUR DOCTOR NEEDED. TAKE YOUR MEDICATIONS PRESCRIBED. MONITOR YOUR BLOOD SUGAR OFTEN AND BEFORE EACH MEAL. Print Language: JORDANIAN
[2016-07-07 17:13] LABS: URINE APPEARANCE CLEAR; URINE BILIRUBIN NEGATIVE (NEGATIVE); URINE BLOOD 2+ (NEGATIVE); URINE COLOR LTYELLOW; URINE GLUCOSE (UA) 3+ (NEGATIVE); URINE KETONE TRACE (NEGATIVE); URINE LEUK ESTERASE TRACE (NEGATIVE); URINE NITRITE NEGATIVE (NEGATIVE); URINE PROTEIN NEGATIVE (NEGATIVE); URINE UROBILINOGEN NEGATIVE E.U./dl (0.2-1.0)
[2016-07-07 17:14] LABS: URINE MUCUS RARE; URINE RBC 13 /hpf (0-3); URINE WBC 5 /hpf (3-5)
[2016-07-07] MEDS ORDERED: ONDANSETRON *ODT* 4 MG TABLET SL ONE (17:18)
[2016-07-07] MEDS ORDERED: ONDANSETRON 4 MG/2 ML VIAL IVPUSH ONE (17:21)
[2016-07-07] MEDS ORDERED: SODIUM CHLORIDE 1,000 ML IV STA ×2 (17:21→18:09)
[2016-07-07] MEDS ORDERED: ONDANSETRON 4 MG/2 ML VIAL ONE (17:22)
[2016-07-07 17:37] LABS: MCH 27.2 pg (25.7-33.7); MCHC 33.4 g/dl (32.0-36.0); MEAN CELL VOLUME 81.4 fl (80-96); MEAN PLT VOLUME 9.2 fl (7.5-11.1); PLATELET COUNT 124 K/MM3 (134-434); RDW 15.3 % (11.6-15.6); WHITE BLOOD COUNT 8.7 K/mm3 (4.0-10.0)
[2016-07-07 18:01] LABS: ALBUMIN 2.6 g/dl (3.4-5.0); ALK PHOS 95 U/L (45-117); ANION GAP 8 (8-16); BILIRUBIN,TOTAL 0.6 mg/dL (0.2-1.0); CALCIUM 8.2 mg/dL (8.5-10.1); CO2 26 mmol/L (21-32); COCKROFT - GAULT 177.4715; CREATININE 0.7 mg/dL (0.55-1.02); SGOT/AST 40 U/L (15-37); SGPT/ALT 31 U/L (12-78); TOT PROT 6.6 g/dl (6.4-8.2)
[2016-07-07 18:03] LABS: GLUCOSE,RANDOM 460 mg/dL (74-106)
[2016-07-07] MEDS ORDERED: INSULIN REGULAR HUMAN 100 UNITS/ML *VIAL IVPUSH ONE (18:09)
[2016-07-07] MEDS ORDERED: INSULIN REGULAR HUMAN 100 UNITS/ML *VIAL ONE (18:12)
[2016-07-07 18:38] LABS: PLATELET ESTIMATE DECREASED (NORMAL)
[2016-07-07] MEDS ORDERED: SODIUM CHLORIDE 500 ML IV STA (19:39)
== END 2016-07-07 22:16 | disposition home or self-care (01) ==
LOC: JER 16:37
PROC: 3E0337Z Introduction of Electrolytic and Water Balance Substance into Peripheral Vein, Percutaneous Approach (ICD-10-PCS; principal; 2016-07-07)
PROC: 3E033VG Introduction of Insulin into Peripheral Vein, Percutaneous Approach (ICD-10-PCS; 2016-07-07)
DX: E10.65 Type 1 diabetes mellitus with hyperglycemia (principal); Z79.4 Long term (current) use of insulin; G40.909 Epilepsy, unspecified, not intractable, without status epilepticus; G43.909 Migraine, unspecified, not intractable, without status migrainosus; E03.9 Hypothyroidism, unspecified
CPT/HCPCS: 36415; 80053; 81003; 81015; 82009; 84703; 85025; 96361; 96374; 99282-25

== ENCOUNTER 2016-07-14 09:43 | Emergency (ER) | payer OTHER ==
[2016-07-14 09:54] VITALS: TEMP 98.2; BMI 30.4
--- NOTE | 2016-07-14 09:58 | PDOC ---
History of Present Illness <Michael Sanders - Last Filed: 07/14/16 12:14> - General History Source: Patient, Old Records - History of Present Illness Initial Comments: 07/14/16 10:26 The patient is a 25 year old female, with a significant past medical history of IDDM, asthma, CHF, pancreatitis, hypothyroidism, bipolar disorder, and seizure disorder (on Dilantin), who presents to the emergency department with a seizure that occurred today. The patient notes that she had 3 seizures today, with the last one lasting 35 minutes. She also notes that she hit her head during one of the seizures but denies any loss of consciousness. She states that she has been on Dilantin for the last few months but has been having seizures roughly every other day. She currently notes that she feels weak. The patient is well known to the ED, as this is her 5th visit to the ED for seizures since March 2016. The patient denies chest pain, shortness of breath, headache and dizziness. Denies fever, chills, nausea, vomit, diarrhea and constipation. Denies dysuria, frequency, urgency and hematuria. Allergies: None Past surgical history: None reported Social history: No alcohol, tobacco or drug use reported PMD - Dr. Trey Richardson Neurology - <Enrike Villarreal - Last Filed: 07/14/16 13:36> - General Chief Complaint: Seizure Stated Complaint: POSSIBLE SEIZURE Time Seen by Provider: 07/14/16 09:54 Past History - Past Medical History Anemia: No Asthma: Yes Cancer: No Cardiac Disorders: Yes (RAPID HEARTBEAT HX) CVA: No COPD: No CHF: Yes Dementia: No Diabetes: Yes GI Disorders: Yes (h/o PANCREATITIS.) Disorders: No HTN: No Hypercholesterolemia: No Liver Disease: No Psychiatric Problems: Yes (anxiety, bipolar) Suicide Attempt (Hx): No Seizures: Yes Thyroid Disease: Yes - Surgical History Abdominal Surgery: No Appendectomy: No Cardiac Surgery: No Cholecystectomy: No Lung Surgery: No Neurologic Surgery: No Orthopedic Surgery: No - Family Disease History Family Disease History: Heart Disease: Grandparents - Reproductive History (#): 1 Para: 0 Cervical CA: No Dysfunctional Uterine Bleeding: No Ectopic : No Endometrial CA: No Polycystic Ovaries: No Therapeutic (s) & number: No Tubal Ligation: No Spontaneous : 1 - Immunization History Immunization Up to Date: Yes - Psycho/Social/Smoking Cessation Hx Anxiety: No Suicidal Ideation: No Smoking Status: Yes Smoking History: Never smoked Have you smoked in the past 12 months: No Number of Cigarettes Smoked Daily: 0 If you are a former smoker, when did you quit?: 2011 'Breaking Loose' booklet given: 03/11/12 Hx Alcohol Use: No Drug/Substance Use Hx: No Substance Use Type: None Hx Substance Use Treatment: No <Michael Sanders - Last Filed: 07/14/16 12:14> <Enrike Villarreal - Last Filed: 07/14/16 13:36> - Past Medical History Allergies/Adverse Reactions: Allergies Allergy/AdvReac Type Severity Reaction Status Date / Time No Known Drug Allergies Allergy Verified 07/14/16 09:53 SEAFOOD Allergy Severe ANAPHYLAXIS Uncoded 07/14/16 09:53 Home Medications: Ambulatory Orders Albuterol Sulfate Inhaler - [Ventolin HFA Inhaler -] 1 puff IH Q8H 03/22/16 Levothyroxine Sodium [Synthroid] 88 mcg PO DAILY 03/22/16 [place] Carbonate [Eskalith -] 600 mg PO BID 03/22/16 Clonazepam [Klonopin -] 0.5 mg PO BID PRN 05/23/16 Acetaminophen [Tylenol .Regular Strength -] 650 mg PO Q6H PRN #0 tablet Insulin (Novolog 70/30) [Novolog Mix 70/30 Vial -] 46 units SQ BIDAC vial 06/10 Phenytoin Na Extended [Dilantin -] 200 mg PO BID #120 06/10/16 Topiramate [Topamax -] 25 mg PO BID #60 tablet 06/10/16 Cephalexin Monohydrate [Keflex -] 500 mg PO Q8H #30 capsule 07/14/16 Review of Systems - Review of Systems Constitutional: No: Chills, Fever, Night Sweats HEENTM: No: Recent change in vision, Nose Congestion, Throat Pain Respiratory: No: Cough, Shortness of Breath Cardiac (ROS): No: Chest Pain ABD/GI: No: Diarrhea, Nausea, Vomiting : No: Dysuria, Frequency Neurological: Yes: Headache. No: Weakness, Ataxia All Other Systems: Reviewed and Negative <Michael Sanders - Last Filed: 07/14/16 12:14> *Physical Exam - Vital Signs Last Vital Signs Temp Pulse Resp BP Pulse Ox 98.2 F 80 18 117/87 98 07/14/16 09:51 07/14/16 09:51 07/14/16 09:51 07/14/16 09:51 07/14/16 09:51 <Michael Sanders - Last Filed: 07/14/16 12:14> - Vital Signs Last Vital Signs Temp Pulse Resp BP Pulse Ox 98.2 F 80 18 117/87 98 07/14/16 09:51 07/14/16 09:51 07/14/16 09:51 07/14/16 09:51 07/14/16 09:51 - Physical Exam Comments: 07/14/16 10:26 GENERAL: The patient is awake, alert, and fully oriented, in no acute distress. HEAD: Normal with no signs of trauma. No bruising or ecchymosis. EYES: Pupils equal, round and reactive to light, extraocular movements intact, sclera anicteric, conjunctiva clear with no pallor. ENT: Ears normal, nares patent, oropharynx clear without exudates. Moist mucous Membranes. No tongue laceration. NECK: Normal range of motion, supple without lymphadenopathy, JVD, or masses. LUNGS: Breath sounds equal, clear to auscultation bilaterally. No wheeze/ crackles. HEART: Regular rate and rhythm, normal S1 and S2 without murmur or rub. ABDOMEN: Soft/nontender/nondistended. BS wnl. No guarding or rebound. No palpable masses. No hepatosplenomegaly. EXTREMITIES: Normal range of motion, no edema. No clubbing or cyanosis. No cords , erythema, or tenderness. MUSCULOSKELETAL: No C-Spine tenderness. NEUROLOGICAL: Cranial nerves II through XII grossly intact. Normal speech, normal gait. PSYCH: Normal mood, normal affect. SKIN: Warm, Dry, normal turgor, no rashes or lesions noted. <Enrike Villarreal - Last Filed: 07/14/16 13:36> Heart Score/ECG Review #1 ECG reviewed & interpreted by me at: 10:30 General ECG Interpretation: Sinus Rhythm, Normal Rate (63), Normal Intervals ( qtc 417), No acute ischemic changes <Michael Sanders - Last Filed: 07/14/16 12:14> ED Treatment Course - LABORATORY CBC & Chemistry Diagram: 07/14/16 10:50 07/14/16 10:50 <Michael Sanders - Last Filed: 07/14/16 12:14> - LABORATORY CBC & Chemistry Diagram: 07/14/16 10:50 07/14/16 10:50 <Enrike Villarreal - Last Filed: 07/14/16 13:36> Medical Decision Making - Medical Decision Making 07/14/16 10:18 A portion of this note was documented by scribe services under my direction. I have reviewed the details of the note, within reason, and agree with the documentation with the following case summary and management plan written by me. 25-year-old female with long-standing history of seizures that are difficult to control, presents with generalized weakness and 3 seizures since last night despite reported compliance with her Dilantin and Keppra. No other red flags, denies any infectious complaints, but feels dehydrated. Does report she hit her head during this morning's seizure. Afebrile, vital signs normal. Well-appearing, ambulating in the ED steadily, speaking full sentences, texting on her cell phone head atraumatic neck supple exam normal 25-year-old female presenting again with seizure. Rule out infectious or metabolic etiology, rule out TBI. CT head given head injury Check Dilantin level IV fluid hydration Labs, urinalysis Reassess and dispo 07/14/16 11:30 Labs are within normal limits, no leukocytosis and normal differential. Chemistries are within normal limits, including CK and troponin, Dilantin pending. Urinalysis with 11 white blood cells, possible early UTI. Urine negative. CT head, dispo. Well-appearing. 07/14/16 12:10 CT head without acute pathology. Clinically looks well. Will treat empirically for UTI, grew E. coli in 07/01 sensitive to cephalosporins. Dilantin level 10, low normal for therapeutic. Call placed to Dr. 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 Pt has access to his office and will f/u. Understands return criteria. 07/14/16 12:16 D/W Dr. Owens, covering Dr. Donaldson. Given trigger of potential UTI, agrees with d/c on antibiotics and prompt f/u with Dr. Donaldson regarding adjustment of doses. Discussed with patient, was "hoping to stay in the hospital" but no clear indications for admission. She is ambulating, eating, and still on her phone. Discussed plan for UTI care, return precautions, and f/u with [facility] -- she agrees and understands. <Michael Sanders - Last Filed: 07/14/16 12:14> - Medical Decision Making 07/14/16 13:35 Dr. Donaldson was called regarding the patient at 12:14pm. Dr. Owens covering. Dr. Owens was consulted regarding the patient at 12:15pm [phone] <Enrike Villarreal - Last Filed: 07/14/16 13:36> *DC/Admit/Observation/Transfer <Michael Sanders - Last Filed: 07/14/16 12:14> - Attestations Scribe Attestion: 07/14/16 10:27 Documentation prepared by Enrike Villarreal, acting as medical education manager for Michael Sanders MD <Enrike Villarreal - Last Filed: 07/14/16 13:36> Diagnosis at time of Disposition: Seizure, Seizure disorder Closed head injury Qualifiers: Encounter type: initial encounter Qualified Code(s): S09.90XA - Unspecified injury of head, initial encounter UTI (urinary tract infection) Qualifiers: Urinary tract infection type: site unspecified Hematuria presence: without hematuria Qualified Code(s): N39.0 - Urinary tract infection, site not specified - Discharge Dispostion Disposition: HOME Condition at time of disposition: Improved - Prescriptions Prescriptions: Cephalexin Monohydrate [Keflex -] 500 mg PO Q8H #30 capsule - Referrals Referrals: Trey Richardson MD [Primary Care Provider] - Segundo Donaldson MD [Staff Physician] - - Patient Instructions Printed Discharge Instructions: DI for Urinary Tract Infection (UTI), DI for Seizure Disorder -- Adult Additional Instructions: Activity as tolerated. Stay hydrated. Blood tests and a CAT scan showed no acute abnormalities. Your Dilantin level is therapeutic, but there may be room to increase the dose if needed. A urine test shows evidence of an early infection, and this may have been the trigger for your seizures. Take cephalexin as prescribed for 10 days. Continue your medications as previously prescribed by your physician. You should follow up with Dr. Donaldson as soon as possible regarding today's emergency department visit. Return to the emergency department for any new or concerning symptoms, particularly persistent seizures, fevers or chills or difficulty urinating.
[2016-07-14] MEDS ORDERED: SODIUM CHLORIDE 1,000 ML IV ONE (10:12)
[2016-07-14 10:55] LABS: MCH 27.1 pg (25.7-33.7); MEAN CELL VOLUME 81.9 fl (80-96); PLATELET COUNT 182 K/MM3 (134-434); RDW 15.3 % (11.6-15.6)
[2016-07-14 10:56] LABS: URINE APPEARANCE CLEAR; URINE BILIRUBIN NEGATIVE (NEGATIVE); URINE BLOOD NEGATIVE (NEGATIVE); URINE COLOR STRAW; URINE GLUCOSE (UA) 3+ (NEGATIVE); URINE KETONE NEGATIVE (NEGATIVE); URINE NITRITE NEGATIVE (NEGATIVE); URINE PROTEIN NEGATIVE (NEGATIVE); URINE UROBILINOGEN NEGATIVE E.U./dl (0.2-1.0)
[2016-07-14 10:58] LABS: URINE LEUK ESTERASE 1+ (NEGATIVE)
[2016-07-14 10:59] LABS: URINE RBC 1 /hpf (0-3); URINE WBC 11 /hpf (3-5)
[2016-07-14 11:20] LABS: ALBUMIN 2.9 g/dl (3.4-5.0); ANION GAP 8 (8-16); BILIRUBIN,TOTAL 0.6 mg/dL (0.2-1.0); CALCIUM 9.2 mg/dL (8.5-10.1); CO2 26 mmol/L (21-32); CREATININE 0.6 mg/dL (0.55-1.02); SGOT/AST 33 U/L (15-37); SGPT/ALT 34 U/L (12-78)
[2016-07-14 11:22] LABS: PLATELET ESTIMATE ADEQUATE (NORMAL)
[2016-07-14 11:23] LABS: ALK PHOS 98 U/L (45-117); TOT PROT 7.3 g/dl (6.4-8.2); TROPONIN I < 0.02 ng/ml (0.00-0.05)
[2016-07-14 11:47] LABS: GLUCOSE,RANDOM 531 mg/dL (74-106)
[2016-07-14 12:42] VITALS: BP 117/71; PULSE 88
--- NOTE | 2016-07-16 00:10 | EKG ---
Test Reason : Blood Pressure : / mmHG Vent. Rate : 063 BPM Atrial Rate : 063 BPM P-R Int : 190 ms QRS Dur : 086 ms QT Int : 408 ms P-R-T Axes : 056 060 044 degrees QTc Int : 417 ms NORMAL SINUS RHYTHM NORMAL ECG WHEN COMPARED WITH ECG OF 04-FEB-2016 17:24, NO SIGNIFICANT CHANGE WAS FOUND Confirmed by JOSUE HUIZAR MD ([id number]) on 07/16/2016 12:09:43 AM Referred By: Confirmed By:JOSUE HUIZAR MD
== END 2016-07-14 13:05 | disposition home or self-care (01) ==
LOC: JER 09:43
PROC: 3E0337Z Introduction of Electrolytic and Water Balance Substance into Peripheral Vein, Percutaneous Approach (ICD-10-PCS; principal; 2016-07-14)
DX: G40.802 Other epilepsy, not intractable, without status epilepticus (principal); S09.8XXA Other specified injuries of head, initial encounter; W22.8XXA Striking against or struck by other objects, initial encounter; Y93.89 Activity, other specified; Y92.018 Other place in single-family (private) house as the place of occurrence of the external cause; E10.9 Type 1 diabetes mellitus without complications; Z79.4 Long term (current) use of insulin; I50.9 Heart failure, unspecified; E03.9 Hypothyroidism, unspecified; F32.9 Major depressive disorder, single episode, unspecified; F41.9 Anxiety disorder, unspecified; K86.1 Other chronic pancreatitis
CPT/HCPCS: 36415; 70450-TC; 80053; 80185; 81003; 81015; 82550; 84484; 84703; 85025; 87086; 93005; 93010; 96360; 99282-25

== ENCOUNTER 2016-07-24 17:50 | Emergency (ER) | payer OTHER ==
[2016-07-24] MEDS ORDERED: SODIUM CHLORIDE 1,000 ML IV STA ×2 (18:04→19:48)
--- NOTE | 2016-07-24 18:04 | PDOC ---
History of Present Illness - History of Present Illness Initial Comments: 07/24/16 18:15 Patient is a 25 year old female with significant medical hx of IDDM, hypothyroidism and bipolar disorder who is presenting to the ED via EMS for weakness. Today the patient ate a [place] cheesesteak sandwich and later measured her BGM at 580. The patient also states she thinks she might be and wants a test. The patient offers no other complaints. Denies any fever, chills, abdominal pain, nausea, vomiting, diarrhea. PMD: Trey Richardson MD Channel Worker: Xander Bee MD Neurologist: Segundo Donaldson MD /M1 <Simona Farah - Last Filed: 07/24/16 18:14> <Heather Alicia - Last Filed: 07/25/16 02:36> - General Chief Complaint: Blood Sugar Problem Stated Complaint: HYPERGLYCEMIA Time Seen by Provider: 07/24/16 18:03 Past History <Simona Farah - Last Filed: 07/24/16 18:14> - Past Medical History Anemia: No Asthma: Yes Cancer: No Cardiac Disorders: Yes (RAPID HEARTBEAT HX) CVA: No COPD: No CHF: Yes Dementia: No Diabetes: Yes GI Disorders: Yes (h/o PANCREATITIS.) Disorders: No HTN: No Hypercholesterolemia: No Liver Disease: No Psychiatric Problems: Yes (anxiety, bipolar) Suicide Attempt (Hx): No Seizures: Yes Thyroid Disease: Yes - Surgical History Abdominal Surgery: No Appendectomy: No Cardiac Surgery: No Cholecystectomy: No Lung Surgery: No Neurologic Surgery: No Orthopedic Surgery: No - Family Disease History Family Disease History: Heart Disease: Grandparents - Reproductive History (#): 1 Para: 0 Cervical CA: No Dysfunctional Uterine Bleeding: No Ectopic : No Endometrial CA: No Polycystic Ovaries: No Therapeutic (s) & number: No Tubal Ligation: No Spontaneous : 1 - Immunization History Immunization Up to Date: Yes - Psycho/Social/Smoking Cessation Hx Anxiety: No Suicidal Ideation: No Smoking Status: Yes Smoking History: Never smoked Have you smoked in the past 12 months: No Number of Cigarettes Smoked Daily: 0 If you are a former smoker, when did you quit?: 2011 'Breaking Loose' booklet given: 03/11/12 Hx Alcohol Use: No Drug/Substance Use Hx: No Substance Use Type: None Hx Substance Use Treatment: No <Heather Alicia - Last Filed: 07/25/16 02:36> - Past Medical History Allergies/Adverse Reactions: Allergies Allergy/AdvReac Type Severity Reaction Status Date / Time No Known Drug Allergies Allergy Verified 07/24/16 18:54 SEAFOOD Allergy Severe ANAPHYLAXIS Uncoded 07/24/16 18:54 Home Medications: Ambulatory Orders Albuterol Sulfate Inhaler - [Ventolin HFA Inhaler -] 1 puff IH Q8H 03/22/16 Levothyroxine Sodium [Synthroid] 88 mcg PO DAILY 03/22/16 [place] Carbonate [Eskalith -] 600 mg PO BID 03/22/16 Clonazepam [Klonopin -] 0.5 mg PO BID PRN 05/23/16 Acetaminophen [Tylenol .Regular Strength -] 650 mg PO Q6H PRN #0 tablet Insulin (Novolog 70/30) [Novolog Mix 70/30 Vial -] 46 units SQ BIDAC vial 06/10 Phenytoin Na Extended [Dilantin -] 200 mg PO BID #120 06/10/16 Topiramate [Topamax -] 25 mg PO BID #60 tablet 06/10/16 Cephalexin Monohydrate [Keflex -] 500 mg PO Q8H #30 capsule 07/14/16 Review of Systems - Review of Systems Comments:: 07/24/16 18:18 CONSTITUTIONAL: Present: generalized weakness Absent: fever, chills, diaphoresis, malaise, loss of appetite HEENT: Absent: rhinorrhea, nasal congestion, throat pain, throat swelling, difficulty swallowing, mouth swelling, ear pain, eye pain, visual changes CARDIOVASCULAR: Absent: chest pain, syncope, palpitations, irregular heart rate, lightheadedness , peripheral edema RESPIRATORY: Absent: cough, shortness of breath, dyspnea with exertion, orthopnea, wheezing, stridor, hemoptysis GASTROINTESTINAL: Absent: abdominal pain, abdominal distension, nausea, vomiting, diarrhea, constipation, melena, hematochezia GENITOURINARY: Absent: dysuria, frequency, urgency, hesitancy, hematuria, flank pain, genital pain MUSCULOSKELETAL: Absent: myalgia, arthralgia, joint swelling SKIN: Absent: rash, itching, pallor HEMATOLOGIC/IMMUNOLOGIC: Absent: easy bleeding, easy bruising, lymphadenopathy, frequent infections ENDOCRINE: Absent: unexplained weight gain, unexplained weight loss, heat intolerance, cold intolerance NEUROLOGIC: Absent: headache, focal weakness or paresthesia, dizziness, unsteady gait, seizure, mental status changes, bladder or bowel incontinence. PSYCHIATRIC: Absent: anxiety, depression, suicidal or homicidal ideation, hallucinations <Simona Farah - Last Filed: 07/24/16 18:14> *Physical Exam - Physical Exam Comments: 07/24/16 18:18 GENERAL: Well developed, well nourished. Awake and alert. No acute distress. HEENT: Normocephalic, atraumatic. PERRLA, EOMI. No conjunctival pallor. Sclera are non- icteric. Moist mucous membranes. Oropharynx is clear. NECK: Supple. Full ROM. No JVD. Carotid pulses 2+ and symmetric, without bruits. No thyromegaly. No lymphadenopathy. CARDIOVASCULAR: Regular rate and rhythm. No murmurs, rubs, or gallops. Distal pulses are 2+ and symmetric. PULMONARY: No evidence of respiratory distress. Lungs clear to auscultation bilaterally. No wheezing, rales or rhonchi. ABDOMINAL: Soft. Non-tender. Non-distended. No rebound or guarding. No organomegaly. Normoactive bowel sounds. MUSCULOSKELETAL: Normal range of motion at all joints. No bony deformities or tenderness. No CVA tenderness. EXTREMITIES: No cyanosis. No clubbing. No edema. No calf tenderness. SKIN: Warm and dry. Normal capillary refill. No rashes. No jaundice. NEUROLOGICAL: Alert, awake, appropriate. Cranial nerves 2-12 intact. Normal speech. Gait is normal without ataxia. PSYCHIATRIC: Cooperative. Good eye contact. Appropriate mood and affect. <Simona Farah - Last Filed: 07/24/16 18:14> ED Treatment Course - LABORATORY CBC & Chemistry Diagram: 07/24/16 18:45 07/24/16 18:45 <Heather Alicia - Last Filed: 07/25/16 02:36> Medical Decision Making - Medical Decision Making 07/24/16 19:57 25-year-old female who is insulin-dependent diabetic who is known to our emergency department. Presents because of weakness. However, she quickly asked her test. She is trying to get Glucose is greater than 500. However acetone is negative She has no respiratory distress, no nausea, vomiting, no fever or chills, no cough, -she benign abdominal exam and clear Chest test is negative Urinalysis is negative CBC is unremarkable Chemistries reviewed and she does have a glucose of 584. However, she said she had dietary indiscretion today. Acetone is negative and her anion gap was within normal limits She received a liter of fluid and received 10 units subcutaneous insulin and then she stated that she was leaving Impression poorly controlled diabetes, no any evidence of ketoacidosis Condition stable. Discharged home w reminder to please follow diabetes dietary restrictions and take her primary medications. She states that she will take her long-acting insulin when she gets home 07/25/16 02:35 <Heather Alicia - Last Filed: 07/25/16 02:36> *DC/Admit/Observation/Transfer - Attestations Scribe Attestion: 07/24/16 18:19 Documentation prepared by Simona Farah, acting as medical artist for Heather Alicia MD. <Simona Farah - Last Filed: 07/24/16 18:14> <Heather Alicia - Last Filed: 07/25/16 02:36> Diagnosis at time of Disposition: Elevated glucose level Diabetes mellitus, insulin dependent (IDDM), uncontrolled Qualifiers: Diabetes mellitus complication status: with hyperglycemia Qualified Code(s): E10.65 - Type 1 diabetes mellitus with hyperglycemia - Discharge Dispostion Disposition: HOME Condition at time of disposition: Stable - Referrals Referrals: Trey Richardson MD [Primary Care Provider] - - Patient Instructions Printed Discharge Instructions: DI for Hyperglycemia -- Adult Additional Instructions: It is important to follow the diabetes dietary restrictions and take your diabetes medication as directed by your physician
[2016-07-24 18:48] LABS: URINE APPEARANCE CLEAR; URINE BILIRUBIN NEGATIVE (NEGATIVE); URINE BLOOD NEGATIVE (NEGATIVE); URINE COLOR COLORLESS; URINE GLUCOSE (UA) 3+ (NEGATIVE); URINE KETONE NEGATIVE (NEGATIVE); URINE LEUK ESTERASE NEGATIVE (NEGATIVE); URINE NITRITE NEGATIVE (NEGATIVE); URINE PROTEIN NEGATIVE (NEGATIVE); URINE UROBILINOGEN NEGATIVE E.U./dl (0.2-1.0)
[2016-07-24 18:54] VITALS: BMI 30.4
[2016-07-24 18:54] LABS: MCH 26.6 pg (25.7-33.7); MCHC 32.6 g/dl (32.0-36.0); MEAN CELL VOLUME 81.7 fl (80-96); MEAN PLT VOLUME 8.4 fl (7.5-11.1); PLATELET COUNT 218 K/MM3 (134-434); RDW 14.5 % (11.6-15.6)
[2016-07-24 19:17] LABS: ALBUMIN 3.7 g/dl (3.4-5.0); ANION GAP 12 (8-16); BILIRUBIN,TOTAL 0.8 mg/dL (0.2-1.0); CALCIUM 9.1 mg/dL (8.5-10.1); CO2 22 mmol/L (21-32); COCKROFT - GAULT 155.2865; CREATININE 0.8 mg/dL (0.55-1.02); SGOT/AST 13 U/L (15-37); SGPT/ALT 22 U/L (12-78); TOT PROT 8.1 g/dl (6.4-8.2)
[2016-07-24 19:18] LABS: ALK PHOS 107 U/L (45-117)
[2016-07-24 19:23] LABS: GLUCOSE,RANDOM 584 mg/dL (74-106)
[2016-07-24] MEDS ORDERED: INSULIN REGULAR HUMAN 100 UNITS/ML *VIAL IVPUSH ONE (19:47)
[2016-07-24] MEDS ORDERED: INSULIN REGULAR HUMAN 100 UNITS/ML *VIAL SQ ONE (19:56)
[2016-07-24] MEDS ORDERED: INSULIN REGULAR HUMAN 100 UNITS/ML *VIAL ONE (20:08)
[2016-07-24 20:17] VITALS: BP 128/66; PULSE 82; TEMP 98
[2016-07-24 20:56] LABS: PLATELET ESTIMATE ADEQUATE (NORMAL)
== END 2016-07-24 20:26 | disposition home or self-care (01) ==
LOC: JER 17:50
PROC: 3E0337Z Introduction of Electrolytic and Water Balance Substance into Peripheral Vein, Percutaneous Approach (ICD-10-PCS; principal; 2016-07-24)
PROC: 3E033VG Introduction of Insulin into Peripheral Vein, Percutaneous Approach (ICD-10-PCS; 2016-07-24)
PROC: 3E013VG Introduction of Insulin into Subcutaneous Tissue, Percutaneous Approach (ICD-10-PCS; 2016-07-24)
DX: E10.65 Type 1 diabetes mellitus with hyperglycemia (principal); Z79.4 Long term (current) use of insulin; E03.9 Hypothyroidism, unspecified; F41.9 Anxiety disorder, unspecified; F31.9 Bipolar disorder, unspecified; Z32.02 Encounter for pregnancy test, result negative
CPT/HCPCS: 36415; 80053; 81003; 82009; 84703; 85025; 96361; 96372; 96374; 99284-25

== ENCOUNTER 2016-07-31 13:56 | Emergency (ER) | payer OTHER ==
[2016-07-31 14:02] VITALS: BP 103/60; PULSE 92; TEMP 98; BMI 30.4
== END 2016-07-31 15:04 | disposition left against medical advice (07) ==
LOC: JER 13:56
DX: Z53.21 Procedure and treatment not carried out due to patient leaving prior to being seen by health care provider (principal)
CPT/HCPCS: 99281-25

== ENCOUNTER 2016-08-03 10:58 | Observation (INO) | payer OTHER ==
[2016-08-03] MEDS ORDERED: ONDANSETRON 4 MG/2 ML VIAL IVPUSH ONE (11:23)
[2016-08-03] MEDS ORDERED: SODIUM CHLORIDE 1,000 ML IV STA (11:23)
[2016-08-03] MEDS ORDERED: FAMOTIDINE 20 MG/50 ML IVPB 20 MG in PREMIX 50 IVPB ONE (11:28)
[2016-08-03] MEDS ORDERED: MAG HYDROX/AL HYDROX/SIMETH 355 ML ORAL.SUSP PO ONE (11:28)
--- NOTE | 2016-08-03 11:29 | PDOC ---
History of Present Illness - General Chief Complaint: Nausea/Vomiting Stated Complaint: STOMACH/VOMITING Time Seen by Provider: 08/03/16 11:19 History Source: Patient Exam Limitations: No Limitations - History of Present Illness Travel History: No Initial Comments: 08/03/16 11:24 25y F hx of IDDM, asthma, CHF, pancreatitis, hypothyroidism, bipolar disorder, and seizure disorder (on Dilantin) who presents with complaint of 1 day of abdominal cramping and 4 episodes of vomiting and several eipsodes of diarrhea. Pt notes that the vomiting is watery with streaksof blood, pt denies any blood in stool or black stool. no associated fever/chills, cp, sob, vag bleeding. The patient denies chest pain, shortness of breath, headache and dizziness. Denies fever, chills, nausea, vomit, diarrhea and constipation. Denies dysuria, frequency, urgency and hematuria. Allergies: None Past surgical history: None reported Social history: No alcohol, tobacco or drug use reported PMD - Dr. Trey Richardson Neurology - Past History - Past Medical History Allergies/Adverse Reactions: Allergies Allergy/AdvReac Type Severity Reaction Status Date / Time mushroom Allergy Verified 08/03/16 11:07 SEAFOOD Allergy Severe ANAPHYLAXIS Uncoded 07/31/16 14:02 Home Medications: Ambulatory Orders Albuterol Sulfate Inhaler - [Ventolin HFA Inhaler -] 1 puff IH Q8H 03/22/16 Levothyroxine Sodium [Synthroid] 88 mcg PO DAILY 03/22/16 [place] Carbonate [Eskalith -] 600 mg PO BID 03/22/16 Clonazepam [Klonopin -] 0.5 mg PO BID PRN 05/23/16 Acetaminophen [Tylenol .Regular Strength -] 650 mg PO Q6H PRN #0 tablet Insulin (Novolog 70/30) [Novolog Mix 70/30 Vial -] 46 units SQ BIDAC vial 06/10 Phenytoin Na Extended [Dilantin -] 200 mg PO BID #120 06/10/16 Topiramate [Topamax -] 25 mg PO BID #60 tablet 06/10/16 Anemia: No Asthma: Yes Cancer: No Cardiac Disorders: Yes (RAPID HEARTBEAT HX) CVA: No COPD: No CHF: Yes Dementia: No Diabetes: Yes GI Disorders: Yes (h/o PANCREATITIS.) Disorders: No HTN: No Hypercholesterolemia: No Liver Disease: No Psychiatric Problems: Yes (anxiety, bipolar) Suicide Attempt (Hx): No Seizures: Yes Thyroid Disease: Yes - Surgical History Abdominal Surgery: No Appendectomy: No Cardiac Surgery: No Cholecystectomy: No Lung Surgery: No Neurologic Surgery: No Orthopedic Surgery: No - Family Disease History Family Disease History: Heart Disease: Grandparents - Reproductive History (#): 1 Para: 0 Cervical CA: No Dysfunctional Uterine Bleeding: No Ectopic : No Endometrial CA: No Polycystic Ovaries: No Therapeutic (s) & number: No Tubal Ligation: No Spontaneous : 1 - Immunization History Immunization Up to Date: Yes - Psycho/Social/Smoking Cessation Hx Anxiety: No Suicidal Ideation: No Smoking Status: Yes Smoking History: Former smoker Have you smoked in the past 12 months: No Number of Cigarettes Smoked Daily: 0 If you are a former smoker, when did you quit?: 2011 Information on smoking cessation initiated: No 'Breaking Loose' booklet given: 03/11/12 Hx Alcohol Use: No Drug/Substance Use Hx: No Substance Use Type: None Hx Substance Use Treatment: No Abd/GI Specific PMHX - Complaint Specific PMHX Pancreatitis: Yes Review of Systems - Review of Systems Able to Perform ROS?: Yes Comments:: 08/03/16 11:27 Constitutional - no reported Fever, Chills, HEENT: no reported vision changes, sore throat Respiratory: no reported cough, sob, hemoptysis Cardiac: no reported chest pain, palpitations, light headedness, leg swelling Abd/GI: +abd pain, nausea, vomiting, diarrhea no reported blood per rectum, melena, diarrhea : no reported dysuria, frequency, discharge Musculskelatal - no reported back pain, joint swelling skin - no reported bruising, erythema, rash neurological: no reported headache, numbness, focal weakness, tingling, ataxia, hematologic: no reported anemia, easy bruising, easy bleeding *Physical Exam - Vital Signs Last Vital Signs Temp Pulse Resp BP Pulse Ox 98.2 F 80 20 105/78 99 08/03/16 11:04 08/03/16 11:04 08/03/16 11:04 08/03/16 11:04 08/03/16 11:04 - Physical Exam Comments: 08/03/16 11:28 GENERAL: The patient is awake, alert, and fully oriented, Nontoxic - in no acute distress. HEAD: Normocephalic, atraumatic. EYES: extraocular movements intact, sclera anicteric, conjunctiva clear. ENT: Normal voice, Moist mucous membranes. NECK: Normal range of motion, supple LUNGS: Breath sounds equal, clear to auscultation bilaterally. No wheezes, no rhonchi, no rales. HEART: Regular rate and rhythm, normal S1 and S2 without murmur, rub or gallop. ABDOMEN: Soft, nontender, normoactive bowel sounds. No guarding, no rebound. . No CVA tenderness EXTREMITIES: Normal range of motion, no edema. No clubbing or cyanosis. No cords, erythema, or tenderness. NEUROLOGICAL: No facial assymetry, Normal speech, PSYCH: Normal mood, normal affect. SKIN: Warm, Dry, normal turgor, ED Treatment Course - LABORATORY CBC & Chemistry Diagram: 08/03/16 11:33 08/03/16 11:33 Medical Decision Making - Medical Decision Making 08/03/16 11:28 suspect gastroenteritis, consider pancreatitis due to her history suspect eh blood tinging may be from mallor martel tears will ck labs will give pepcid/maalox, zofran will r/o will reassess 08/03/16 14:28 pt labs noted for mild elevation of lipase pt still feeling pain will observe for pancreatitis, npo pt given antiemetic and pain meds 08/03/16 14:34 dr. pang requests hospoitalist admission 08/03/16 15:49 case dw [employer] blas agree with observation under dr. osullivan service stable for med surg Case discussed in detail with admitting physician including history, physical exam and ancillary studies. Admitting physician has assumed care for the patient, will follow all pending diagnostics and will complete the evaluation and treatment. *DC/Admit/Observation/Transfer Diagnosis at time of Disposition: Pancreatitis Qualifiers: Chronicity: chronic Pancreatitis type: unspecified pancreatitis type Qualified Code(s): K86.1 - Other chronic pancreatitis - Discharge Dispostion Condition at time of disposition: Stable Admit: Yes
[2016-08-03 11:50] LABS: MCH 27.4 pg (25.7-33.7); MCHC 34.4 g/dl (32.0-36.0); MEAN CELL VOLUME 79.8 fl (80-96); PLATELET COUNT 201 K/MM3 (134-434); RDW 13.9 % (11.6-15.6); WHITE BLOOD COUNT 8.2 K/mm3 (4.0-10.0)
[2016-08-03 12:23] LABS: ALBUMIN 3.5 g/dl (3.4-5.0); ALK PHOS 113 U/L (45-117); ANION GAP 12 (8-16); BILIRUBIN,TOTAL 0.6 mg/dL (0.2-1.0); CO2 23 mmol/L (21-32); CREATININE 0.5 mg/dL (0.55-1.02); SGOT/AST 16 U/L (15-37); SGPT/ALT 21 U/L (12-78); TOT PROT 7.8 g/dl (6.4-8.2)
[2016-08-03 12:25] LABS: GLUCOSE,RANDOM 337 mg/dL (74-106)
[2016-08-03 13:40] LABS: PLATELET ESTIMATE ADEQUATE (NORMAL)
[2016-08-03] MEDS ORDERED: METOCLOPRAMIDE HCL INJECTION 10 MG/2 ML VIAL IVPUSH ONE (14:15)
[2016-08-03] MEDS ORDERED: METOCLOPRAMIDE HCL INJECTION 10 MG/2 ML VIAL ONE (14:21)
[2016-08-03] MEDS ORDERED: morphine CARPU-JECT 2 MG/1 ML DISP.SYRIN IVPUSH ONE (14:27)
[2016-08-03 15:25] LABS: URINE APPEARANCE CLEAR; URINE BILIRUBIN NEGATIVE (NEGATIVE); URINE COLOR LTYELLOW; URINE GLUCOSE (UA) 3+ (NEGATIVE); URINE KETONE 1+ (NEGATIVE); URINE NITRITE NEGATIVE (NEGATIVE); URINE PROTEIN NEGATIVE (NEGATIVE); URINE UROBILINOGEN NEGATIVE E.U./dl (0.2-1.0)
[2016-08-03 15:43] LABS: URINE BLOOD 2+ (NEGATIVE); URINE LEUK ESTERASE TRACE (NEGATIVE)
[2016-08-03 15:56] LABS: URINE MUCUS RARE; URINE RBC 17 /hpf (0-3); URINE WBC 17 /hpf (3-5)
[2016-08-03] MEDS ORDERED: METOCLOPRAMIDE HCL INJECTION 10 MG/2 ML VIAL IVPB PRN (17:21)
[2016-08-03] MEDS ORDERED: morphine CARPU-JECT 2 MG/1 ML DISP.SYRIN IVPUSH PRN (17:21)
[2016-08-03] MEDS ORDERED: ONDANSETRON 4 MG/2 ML VIAL IVPB PRN (17:21)
--- NOTE | 2016-08-03 17:23 | HP ---
CHIEF COMPLAINT: Abdominal pain, vomiting PCP: Dr. Debra Kearney requests hospitalist for observation HISTORY OF PRESENT ILLNESS: This is a 25 year old female with a history of IDDM , bipolar disorder, and chronic pancreatitis, for which she has frequent visits who presented to the ED today complaining of epigastric/RUQ pain and vomiting/ inability to tolerate oral fluids, consistent with prior bouts of pancreatitis. ER course was notable for: (1) Lipase 962 - has been this high or higher during prior visits (2) Glucose 337 with AG 12 (3) UA with 17 WBCs Recent Travel: None Social History: Lives with mother and Smoking: Quit 4 years ago Alcohol: None Drugs: None Family History: IDDM, BPD Allergies mushroom Allergy (Verified 08/03/16 11:07) SEAFOOD Allergy (Severe, Uncoded 07/31/16 14:02) ANAPHYLAXIS HOME MEDICATIONS: Home Medications Medication Instructions Recorded Albuterol Sulfate Inhaler - 1 puff IH Q8H 03/22/16 [Ventolin HFA Inhaler -] Levothyroxine Sodium [Synthroid] 88 mcg PO DAILY 03/22/16 [place] Carbonate [Eskalith -] 600 mg PO BID 03/22/16 Clonazepam [Klonopin -] 0.5 mg PO BID PRN 05/23/16 Acetaminophen [Tylenol .Regular 650 mg PO Q6H PRN #0 tablet 06/10/16 Strength -] Insulin (Novolog 70/30) [Novolog 46 units SQ BIDAC vial 06/10/16 Mix 70/30 Vial -] Phenytoin Na Extended [Dilantin -] 200 mg PO BID #120 06/10/16 Topiramate [Topamax -] 25 mg PO BID #60 tablet 06/10/16 REVIEW OF SYSTEMS CONSTITUTIONAL: Absent: fever, chills, diaphoresis, generalized weakness, malaise, loss of appetite, weight change HEENT: Absent: rhinorrhea, nasal congestion, throat pain, throat swelling, difficulty swallowing, mouth swelling, ear pain, eye pain, visual changes CARDIOVASCULAR: Absent: chest pain, syncope, palpitations, irregular heart rate, lightheadedness , peripheral edema RESPIRATORY: Absent: cough, shortness of breath, dyspnea with exertion, orthopnea, wheezing, stridor, hemoptysis GASTROINTESTINAL: Absent: abdominal pain, abdominal distension, nausea, vomiting, diarrhea, constipation, melena, hematochezia GENITOURINARY: Absent: dysuria, frequency, urgency, hesitancy, hematuria, flank pain, genital pain MUSCULOSKELETAL: Absent: myalgia, arthralgia, joint swelling, back pain, neck pain SKIN: Absent: rash, itching, pallor HEMATOLOGIC/IMMUNOLOGIC: Absent: easy bleeding, easy bruising, lymphadenopathy, frequent infections ENDOCRINE: Absent: unexplained weight gain, unexplained weight loss, heat intolerance, cold intolerance NEUROLOGIC: Absent: headache, focal weakness or paresthesias, dizziness, unsteady gait, seizure, mental status changes, bladder or bowel incontinence PSYCHIATRIC: Absent: anxiety, depression, suicidal or homicidal ideation, hallucinations. PHYSICAL EXAMINATION Vital Signs - 24 hr 08/03/16 16:30 Temperature 98.2 F Pulse Rate [ 55 L Apical] Respiratory 18 Rate Blood Pressure 98/53 [Left Arm] O2 Sat by Pulse 99 Oximetry (%) GENERAL: Awake, alert, and fully oriented, in no acute distress. HEAD: Normal with no signs of trauma. EYES: Pupils equal, round and reactive to light, extraocular movements intact, sclera anicteric, conjunctiva clear. No lid lag. EARS, NOSE, THROAT: Ears normal, nares patent, oropharynx clear without exudates. Moist mucous membranes. NECK: Normal range of motion, supple without lymphadenopathy, JVD, or masses. LUNGS: Breath sounds equal, clear to auscultation bilaterally. No wheezes, and no crackles. No accessory muscle use. HEART: Regular rate and rhythm, normal S1 and S2 without murmur, rub or gallop. ABDOMEN: Soft, epigastric tenderness, not distended, normoactive bowel sounds, no guarding, no rebound, no masses. No hepatomegaly or splenomegaly. MUSCULOSKELETAL: Normal range of motion at all joints. No bony deformities or tenderness. No CVA tenderness. UPPER EXTREMITIES: 2+ pulses, warm, well-perfused. No cyanosis. No clubbing. No peripheral edema. LOWER EXTREMITIES: 2+ pulses, warm, well-perfused. No calf tenderness. No peripheral edema. NEUROLOGICAL: Cranial nerves II-XII intact. Normal speech. Normal gait. PSYCHIATRIC: Cooperative. Good eye contact. Appropriate mood and affect. SKIN: Warm, dry, normal turgor, no rashes or lesions noted, normal capillary refill. ASSESSMENT/PLAN: 25 year old male with chronic pancreatitis, placed in observation with epigastric pain, vomiting, and inability to tolerate PO. Problem List - Problem (1) Pancreatitis Assessment/Plan: -NPO, advance as tolerated -IVF -Trend lipase -Pepcid 20mg IVPB bid and morphine 2mg IVB q4h prn pain -GI referral as patient no longer follows with Dr. Pang Code(s): K85.9 - ACUTE PANCREATITIS, UNSPECIFIED * DO NOT USE * Qualifiers: Chronicity: chronic Pancreatitis type: unspecified pancreatitis type Qualified Code(s): K86.1 - Other chronic pancreatitis (2) Bipolar 1 disorder, depressed Assessment/Plan: -Euthymic -Continue home [place], Klonopin Code(s): F31.9 - BIPOLAR DISORDER, UNSPECIFIED (3) UTI (lower urinary tract infection) Assessment/Plan: -Send urine culture -Ceftriaxone 1gg IVPB, transition to Keflex when able to take PO Code(s): N39.0 - URINARY TRACT INFECTION, SITE NOT SPECIFIED (4) DVT prophylaxis Assessment/Plan: -Low risk (short expected length of stay) -Early ambulation Code(s): [id number] - Visit type - Emergency Visit Emergency Visit: Yes ED Registration Date: 08/03/16 Care time: The patient presented to the Emergency Department on the above date and was hospitalized for further evaluation of their emergent condition. - New Patient This patient is new to me today: Yes Date on this admission: 08/03/16 - Critical Care Critical Care patient: No
[2016-08-03] MEDS ORDERED: LACTATED RINGERS SOLUTION 1,000 ML IV SCH (17:30)
[2016-08-03] MEDS ORDERED: SODIUM CHLORIDE 1,000 ML IV SCH (17:45)
[2016-08-03] MEDS ORDERED: clonazePAM 0.5 MG TABLET PO PRN (18:21)
[2016-08-03] MEDS ORDERED: ALBUTEROL SO4 6.7 GM HFA INHALER IH PRN (18:21)
[2016-08-03] MEDS: CEFTRIAXONE 50 ML IVPB SCH (18:56)
[2016-08-03 19:04] VITALS: BMI 31.1
[2016-08-03] MEDS ORDERED: INSULIN (NOVOLOG) ASPART 100 UNITS/ML 10ML VIAL ONE (21:27)
[2016-08-03] MEDS: LITHIUM CARBONATE 300 MG CAPSULE (FP) PO SCH ×2 (21:37→21:48)
[2016-08-03] MEDS: FAMOTIDINE 20 MG/50 ML IVPB 50 ML IVPB SCH (21:37)
[2016-08-03] MEDS: INSULIN SLIDING SCALE (NOVOLOG) 1 VIAL SQ SCH (21:38)
[2016-08-03] MEDS: PHENYTOIN NA EXTENDED 100 MG CAPSULE (FP) PO SCH (21:39)
[2016-08-03] MEDS: TOPIRAMATE 25 MG TABLET (FP) PO SCH (21:40)
[2016-08-03] MEDS ORDERED: LITHIUM CARBONATE PO SCH (22:00)
[2016-08-04] MEDS: INSULIN SLIDING SCALE (NOVOLOG) 1 VIAL SQ SCH (06:40)
[2016-08-04] MEDS ORDERED: LEVOTHYROXINE NA 88 MCG TABLET (FP) PO SCH (07:00)
[2016-08-04 07:47] LABS: MCH 27.3 pg (25.7-33.7); MCHC 33.8 g/dl (32.0-36.0); MEAN CELL VOLUME 80.6 fl (80-96); MEAN PLT VOLUME 8.9 fl (7.5-11.1); PLATELET COUNT 178 K/MM3 (134-434); RDW 13.8 % (11.6-15.6); WHITE BLOOD COUNT 6.1 K/mm3 (4.0-10.0)
[2016-08-04 07:58] LABS: ALBUMIN 2.9 g/dl (3.4-5.0); ANION GAP 10 (8-16); CALCIUM 8.4 mg/dL (8.5-10.1); CO2 23 mmol/L (21-32)
[2016-08-04 08:05] LABS: ALK PHOS 93 U/L (45-117); BILIRUBIN,TOTAL 0.6 mg/dL (0.2-1.0); CREATININE 0.4 mg/dL (0.55-1.02); SGOT/AST 15 U/L (15-37); SGPT/ALT 17 U/L (12-78); TOT PROT 6.6 g/dl (6.4-8.2)
[2016-08-04 08:17] LABS: GLUCOSE,RANDOM 353 mg/dL (74-106)
[2016-08-04] MEDS ORDERED: INSULIN SLIDING SCALE (NOVOLOG) 1 VIAL SQ SCH (09:10)
[2016-08-04 10:46] LABS: PLATELET ESTIMATE ADEQUATE (NORMAL)
--- NOTE | 2016-08-04 10:49 | PN ---
Physical Exam: SUBJECTIVE: Patient seen and examined. She denies nausea/vomiting or abdominal pain. States she ate a chicken nugget with sri [place]ank[place] fries last night, which her brought her, and did not have any abdominal discomfort, nausea or vomiting. States she is hungry and wants to try clears. She is asking for a new GI physician/referral. OBJECTIVE: Abdomen soft, + bowel sounds, no pain illicited on deep palpation, no epigastric discomfort. Lipse trending down (962>543), will start on clears and monitor for any abdominal pain She is asking for a new GI consult who will follow her as an outpatient for her chronic pancreatitis States her last seizure was 2 weeks ago and reports being compliant with her anti sz medications She states she no longer takes lithium, was ordered by her psychiatrist but she has not taken it for a number of weeks. Vital Signs Period Temp Pulse Resp BP Sys/Argueta Pulse Ox Last 24 Hr 97.6 F-98.4 F 53-66 18-18 98-121/53-71 96-99 GENERAL: The patient is awake, alert, and fully oriented, in no acute distress. HEAD: Normal with no signs of trauma. EYES: PERRL, extraocular movements intact, sclera anicteric, conjunctiva clear. No ptosis. ENT: Ears normal, nares patent, oropharynx clear without exudates, moist mucous membranes. NECK: Trachea midline, full range of motion, supple. LUNGS: Breath sounds equal ABDOMEN: Soft, nontender, nondistended, normoactive bowel sounds, no guarding, no rebound, no hepatosplenomegaly, no masses. EXTREMITIES: 2+ pulses, warm, well-perfused, no edema. NEUROLOGICAL: Normal speech, steady gait. PSYCH: Normal mood, normal affect, seizure precautions SKIN: Warm, dry, normal turgor, no rashes or lesions noted Laboratory Results - last 24 hr 08/03/16 08/04/16 08/04/16 21:35 06:00 06:00 WBC 6.1 RBC 4.58 Hgb 12.5 Hct 36.9 MCV 80.6 MCHC 33.8 RDW 13.8 Plt Count 178 MPV 8.9 D Neutrophils % Y Lymphocytes % Y Sodium 142 Potassium 4.0 Chloride 109 H Carbon Dioxide 23 Anion Gap 10 BUN 7 Creatinine 0.4 L Creat Clearance w eGFR > 60 POC Glucometer 307 Random Glucose 353 H* Calcium 8.4 L Total Bilirubin 0.6 AST 15 ALT 17 Alkaline Phosphatase 93 Total Protein 6.6 Albumin 2.9 L Lipase 543 H 08/04/16 06:38 WBC RBC Hgb Hct MCV MCHC RDW Plt Count MPV Neutrophils % Lymphocytes % Sodium Potassium Chloride Carbon Dioxide Anion Gap BUN Creatinine Creat Clearance w eGFR POC Glucometer 335 Random Glucose Calcium Total Bilirubin AST ALT Alkaline Phosphatase Total Protein Albumin Lipase Active Medications Generic Name Dose Route Start Last Admin Trade Name Freq PRN Reason Stop Dose Admin Albuterol Sulfate 1 puff 08/03/16 18:21 Ventolin Hfa Inhaler - IH Q8H PRN WHEEZING Clonazepam 0.5 mg 08/03/16 18:21 Klonopin - PO Q12H PRN ANXIETY Famotidine/Sodium Chloride 50 mls @ 100 mls/hr 08/03/16 22:00 08/03/16 21:37 Pepcid 20 Mg Premixed Ivpb - IVPB 100 mls/hr BID KASIA Administration Ceftriaxone Sodium 50 mls @ 100 mls/hr 08/03/16 17:45 08/03/16 18:56 Rocephin 1gm Ivpb (Pre-Docked) IVPB 100 mls/hr DAILY KASIA Administration Sodium Chloride 1,000 mls @ 125 mls/hr 08/03/16 17:45 08/03/16 18:55 Normal Saline - IV 08/05/16 01:44 125 mls/hr ASDIR KASIA Administration Insulin Aspart 1 vial 08/04/16 09:10 Novolog Vial Sliding Scale - SQ ACHS KASIA Protocol Levothyroxine Sodium 88 mcg 08/04/16 07:00 08/04/16 06:42 Synthroid - PO 88 mcg ACBK KASIA Administration [place] Carbonate 600 mg 08/03/16 22:00 08/03/16 21:48 Eskalith - PO Not Given BID KASIA Metoclopramide HCl 10 mg 08/03/16 17:21 Reglan Injection - IVPB Q6H PRN NAUSEA AND/OR VOMITING Morphine Sulfate 2 mg 08/03/16 17:21 Morphine Injection - IVPUSH Q4H PRN PAIN Ondansetron HCl 4 mg 08/03/16 17:21 Zofran Injection IVPB Q6H PRN NAUSEA Phenytoin Sodium 200 mg 08/03/16 22:00 08/03/16 21:39 Dilantin - PO 200 mg BID KASIA Administration Topiramate 25 mg 08/03/16 22:00 08/03/16 21:40 Topamax - PO 25 mg BID KASIA Administration ASSESSMENT/PLAN: Patient is a 25 year old female with a significant past medical history of diabetes mellitus, chronic asthma, CHF, chronic pancreatites, hyperthyroidism, bipolar disorder and seizure disorder (pt reports last seizure was 2 weeks ago) . She was admitted on 08/03/2016 with a diagnosis of pancreatitis. On exam, she denies any fever, chills, nausea or vomiting. She was made NPO on admission for the pancreatitis and given IV hydration. Patient admits to having chicken nuggets with sri [place]ank[place] fries last night and states that she tolerated this meal without any abdominal discomfort, nausea or vomiting. This morning she tolerated a clear liquid diet. She asked for a new GI consult as she was seen by Dr. Pang in the past. She was able to tolerate a regular diet for lunch without any nausea or vomiting. She will be discharged with a follow up with Dr. Botohe. She will also follow up with her neurologist Dr. Donaldson for repeat Dilantin levels. GI: Pancreatitis - acute on chronic/improving Assessment/Plan: Lipase now 543, improvement from 962 She denies abdominal pain, nausea or vomiting Remains afebrile, WBC within normal limits To follow up with Dr. Garzon as an outpatient : UTI - acute Assessment/Plan: Received Ceftriaxone x 2 doses Will sent with Keflex BID x 5 days Follow up with her PCP within 1 week Psyche: Bipolar disorder - chronic Assessment/Plan: Pt states she is no longer on [place] Follow up with her psychiatrist as an outpatient Pulmonary: Chronic asthma Assessment/Plan: lungs clear to auscultation Not in acute exacerbation Neurology: Seizure disorder - chronic Assessment/Plan: Pt reports last seizure was 2 weeks ago On Dilantin, will need to have levels rechecked with Dr Donaldson as an outpt She has a set appointment with him DVT Prophlaxis - young ambulatory patient Disposition: Discharge with follow up with GI and Neurologist. Patient in agreement. Full code. Visit type - Emergency Visit Emergency Visit: Yes ED Registration Date: 08/03/16 Care time: The patient presented to the Emergency Department on the above date and was hospitalized for further evaluation of their emergent condition. - New Patient This patient is new to me today: Yes Date on this admission: 08/04/16 - Critical Care Critical Care patient: No - Discharge Referral Referred to [facility] No
[2016-08-04] MEDS: PHENYTOIN NA EXTENDED 100 MG CAPSULE (FP) PO SCH (11:27)
[2016-08-04] MEDS: FAMOTIDINE 20 MG/50 ML IVPB 50 ML IVPB SCH (11:27)
[2016-08-04] MEDS: LITHIUM CARBONATE 300 MG CAPSULE (FP) PO SCH (11:27)
[2016-08-04] MEDS: CEFTRIAXONE 50 ML IVPB SCH (11:27)
[2016-08-04] MEDS: TOPIRAMATE 25 MG TABLET (FP) PO SCH (11:28)
[2016-08-04] MEDS ORDERED: INSULIN (NOVOLOG) ASPART 100 UNITS/ML 10ML VIAL ONE (12:25)
--- NOTE | 2016-08-04 13:16 | CON.GI ---
Consult Consult Specialty:: Gastroenterology Referred by:: Dr. Dsouza Reason for Consultation:: Abdominal pain - History of Present Illness Chief Complaint: Epigastric pain and vomiting History of Present Illness: 25W diabetic was awoken by sharp epigastric pain yesterday that led to vomiting. The pain has completely subsided. Sh has a h/o multiple ER visits for abdominal pain and carries a h/o chronic pancreatitis. She has a series of transient lipase elevations but her serial CT scan and a MRI over the past 2 years have failed to reveal any inflammation of gallstone disease. She does have a fatty liver and sigmoid diverticulosis on imaging. She tells me that she has had EGD and colonoscopy with Dr Pang in his office but is not aware of any abnormal findings developed. She has been dismissed form Dr Pang's care due to noncompliance. She is not aware of any etiology for her pancreatitis but tells me that her father had pancreatitis. She drinks Seagrams 7 about once a months and denies any other recreational drug usage. She is and unemployed. Her 7 year old son in under the care of his fatherShar Telles is bipolar. - History Source History Provided By: Patient Limitations to Obtaining History: Poor Historian - Past Medical History [employer]: Yes: Seizure Pulmonary: Yes: Asthma Gastrointestinal: Yes: Diverticulosis, Pancreatitis Hepatobiliary: Yes: Other (fatty liver) ...LMP: 07/30/16 ...LMP Comment: still present ...: No Psych: Yes: Bipolar Endocrine: Yes: Diabetes Mellitus (poorly controlled), Hypothyroidism - Past Surgical History Past Surgical History: Yes: Colonoscopy, Upper Endoscopy - Alcohol/Substance Use Hx Alcohol Use: Yes (Seagrams 7 once a month ) History of Substance Use: reports: None - Smoking History Smoking history: Former smoker Have you smoked in the past 12 months: No Aproximately how many cigarettes per day: 0 If you are a former smoker, when did you quit?: 2011 - Social History Usual Living Arrangement: With Parent ADL: Independent Occupation: unemployed Place of : [facility] [place] History of Recent Travel: No Home Medications - Allergies Allergies/Adverse Reactions: Allergies Allergy/AdvReac Type Severity Reaction Status Date / Time mushroom Allergy Verified 08/03/16 11:07 SEAFOOD Allergy Severe ANAPHYLAXIS Uncoded 07/31/16 14:02 - Home Medications Home Medications: Ambulatory Orders Albuterol Sulfate Inhaler - [Ventolin HFA Inhaler -] 1 puff IH Q8H 03/22/16 Levothyroxine Sodium [Synthroid] 88 mcg PO DAILY 03/22/16 Clonazepam [Klonopin -] 0.5 mg PO BID PRN 05/23/16 Acetaminophen [Tylenol .Regular Strength -] 650 mg PO Q6H PRN #0 tablet Phenytoin Na Extended [Dilantin -] 200 mg PO BID #120 06/10/16 Topiramate [Topamax -] 25 mg PO BID #60 tablet 06/10/16 Insulin Aspart Prot/Insuln Asp [Novolog Mix 70-30 Flexpen Syrn] 50 units SQ BID 08/03/16 Family Disease History - Family Disease History Family Disease History: Heart Disease: Mother (DC in her 30's), Other: Father ( pnacreatitis) Review of Systems - Review of Systems Constitutional: reports: Loss of Appetite, Weakness Eyes: reports: No Symptoms HENT: reports: No Symptoms Neck: reports: No Symptoms Cardiovascular: reports: Palpitations Respiratory: reports: Cough, SOB on Exertion Gastrointestinal: reports: Abdominal Pain, Bloating, Nausea, Vomiting Musculoskeletal: reports: No Symptoms Neurological: reports: Seizure Psychiatric: reports: Anxiety Physical Exam-GI Vital Signs: Vital Signs Temperature 98.3 F 08/04/16 11:31 Pulse Rate 67 08/04/16 11:31 Respiratory Rate 17 08/04/16 11:31 Blood Pressure 93/60 08/04/16 11:31 O2 Sat by Pulse Oximetry (%) 96 08/04/16 01:21 CBC,CMP WBC 6.1 K/mm3 (4.0-10.0) 08/04/16 06:00 RBC 4.58 M/mm3 (3.60-5.2) 08/04/16 06:00 Hgb 12.5 GM/dL (10.7-15.3) 08/04/16 06:00 Hct 36.9 % (32.4-45.2) 08/04/16 06:00 MCV 80.6 fl (80-96) 08/04/16 06:00 MCHC 33.8 g/dl (32.0-36.0) 08/04/16 06:00 RDW 13.8 % (11.6-15.6) 08/04/16 06:00 Plt Count 178 K/MM3 (134-434) 08/04/16 06:00 MPV 8.9 fl (7.5-11.1) D 08/04/16 06:00 Neutrophils % 46.0 % (42.8-82.8) 08/04/16 06:00 Lymphocytes % 37.0 % (8-40) 08/04/16 06:00 Monocytes % 9.0 % (3.8-10.2) 08/04/16 06:00 Eosinophils % 1.0 % (0-4.5) 08/03/16 11:33 Basophils % 1.0 % (0-2.0) 08/03/16 11:33 Differential Comment Manual diff done 08/04/16 06:00 Reactive Lymphocytes 8 % (0-80) D 08/04/16 06:00 Platelet Estimate Adequate (NORMAL) 08/04/16 06:00 Sodium 142 mmol/L (136-145) 08/04/16 06:00 Potassium 4.0 mmol/L (3.5-5.1) 08/04/16 06:00 Chloride 109 mmol/L (98-107) H 08/04/16 06:00 Carbon Dioxide 23 mmol/L (21-32) 08/04/16 06:00 Anion Gap 10 (8-16) 08/04/16 06:00 BUN 7 mg/dL (7-18) 08/04/16 06:00 Creatinine 0.4 mg/dL (0.55-1.02) L 08/04/16 06:00 Creat Clearance w eGFR > 60 (>60) 08/04/16 06:00 POC Glucometer 278 UNITS (()) 08/04/16 12:14 Random Glucose 353 mg/dL (74-106) H* 08/04/16 06:00 Calcium 8.4 mg/dL (8.5-10.1) L 08/04/16 06:00 Total Bilirubin 0.6 mg/dL (0.2-1.0) 08/04/16 06:00 AST 15 U/L (15-37) 08/04/16 06:00 ALT 17 U/L (12-78) 08/04/16 06:00 Alkaline Phosphatase 93 U/L (45-117) 08/04/16 06:00 Total Protein 6.6 g/dl (6.4-8.2) 08/04/16 06:00 Albumin 2.9 g/dl (3.4-5.0) L 08/04/16 06:00 Lipase 543 U/L (73-393) H 08/04/16 06:00 Current Medications Generic Name Dose Route Start Last Admin Trade Name Freq PRN Reason Stop Dose Admin Albuterol Sulfate 1 puff 08/03/16 18:21 Ventolin Hfa Inhaler - IH Q8H PRN WHEEZING Clonazepam 0.5 mg 08/03/16 18:21 Klonopin - PO Q12H PRN ANXIETY Famotidine/Sodium Chloride 50 mls @ 100 mls/hr 08/03/16 22:00 08/04/16 11:27 Pepcid 20 Mg Premixed Ivpb - IVPB 100 mls/hr BID KASIA Administration Ceftriaxone Sodium 50 mls @ 100 mls/hr 08/03/16 17:45 08/04/16 11:27 Rocephin 1gm Ivpb (Pre-Docked) IVPB 100 mls/hr DAILY KASIA Administration Sodium Chloride 1,000 mls @ 125 mls/hr 08/03/16 17:45 08/03/16 18:55 Normal Saline - IV 08/05/16 01:44 125 mls/hr ASDIR KASIA Administration Insulin Aspart 1 vial 08/04/16 09:10 08/04/16 12:38 Novolog Vial Sliding Scale - SQ 8 units ACHS KASIA Administration Protocol Levothyroxine Sodium 88 mcg 08/04/16 07:00 08/04/16 06:42 Synthroid - PO 88 mcg ACBK KASIA Administration [place] Carbonate 600 mg 08/03/16 22:00 08/04/16 11:27 Eskalith - PO Not Given BID KASIA Metoclopramide HCl 10 mg 08/03/16 17:21 Reglan Injection - IVPB Q6H PRN NAUSEA AND/OR VOMITING Morphine Sulfate 2 mg 08/03/16 17:21 Morphine Injection - IVPUSH Q4H PRN PAIN Ondansetron HCl 4 mg 08/03/16 17:21 Zofran Injection IVPB Q6H PRN NAUSEA Phenytoin Sodium 200 mg 08/03/16 22:00 08/04/16 11:27 Dilantin - PO 200 mg BID KASIA Administration Topiramate 25 mg 08/03/16 22:00 08/04/16 11:28 Topamax - PO 25 mg BID KASIA Administration Constitutional: Yes: No Distress Eyes: Yes: Conjunctiva Clear HENT: Yes: Atraumatic Neck: Yes: Supple Cardiovascular: Yes: Regular Rate and Rhythm Respiratory: Yes: CTA Bilaterally ...Auscultate: Yes: Normoactive Bowel Sounds ...Palpate: Yes: Soft, Other (nontender) ...Rectal Exam: Yes: Deferred (at pt's request) Edema: No Labs: CBC, BMP 08/04/16 06:00 08/04/16 06:00 Laboratory Tests 07/09/13 07/03/14 07/04/14 10:32 11:40 06:00 Total Bilirubin AST ALT Alkaline Phosphatase Albumin Triglycerides Total LDL Cholesterol Lipase 139 4427 H 873 H IgG4 HIV 1&2 Antibody Screen HIV P24 Antigen 08/09/14 09/26/14 09/27/14 12:13 12:10 07:45 Total Bilirubin AST ALT Alkaline Phosphatase Albumin Triglycerides Total LDL Cholesterol Lipase 1795 H 1242 H 154 IgG4 HIV 1&2 Antibody Screen HIV P24 Antigen 10/04/14 10/28/14 11/11/14 06:45 11:45 13:17 Total Bilirubin AST ALT Alkaline Phosphatase Albumin Triglycerides Total LDL Cholesterol Lipase 1124 H 1487 H IgG4 HIV 1&2 Antibody Screen Negative HIV P24 Antigen Negative 12/10/14 02/27/15 03/04/15 13:44 12:42 12:36 Total Bilirubin AST ALT Alkaline Phosphatase Albumin Triglycerides Total LDL Cholesterol Lipase 268 1020 H 642 H IgG4 HIV 1&2 Antibody Screen HIV P24 Antigen 03/06/15 07/16/15 08/23/15 20:00 11:10 10:02 Total Bilirubin AST ALT Alkaline Phosphatase Albumin Triglycerides Total LDL Cholesterol Lipase 272 2655 H 1091 H IgG4 HIV 1&2 Antibody Screen HIV P24 Antigen 08/24/15 01/21/16 01/22/16 06:00 11:25 06:00 Total Bilirubin AST ALT Alkaline Phosphatase Albumin Triglycerides 62 D Total LDL Cholesterol 81 Lipase 143 1436 H 392 IgG4 HIV 1&2 Antibody Screen HIV P24 Antigen 01/22/16 06/07/16 06/08/16 06:00 15:38 06:30 Total Bilirubin AST ALT Alkaline Phosphatase Albumin Triglycerides Total LDL Cholesterol Lipase 3805 H 549 H IgG4 77 HIV 1&2 Antibody Screen HIV P24 Antigen 08/03/16 08/04/16 11:33 06:00 Total Bilirubin 0.6 AST 15 ALT 17 Alkaline Phosphatase 93 Albumin 2.9 L Triglycerides Total LDL Cholesterol Lipase 962 H 543 H IgG4 HIV 1&2 Antibody Screen HIV P24 Antigen Problem List - Problems (1) Fatty liver Code(s): K76.0 - FATTY (CHANGE OF) LIVER, NOT ELSEWHERE CLASSIFIED Assessment/Plan Given the rapid resolution of her pain pancreatitis appears unlikely so I will advance her diet. She can be discharged if this is tolerated. I have informed her of the fatty liver and the need to adopt a lower carb, high fiber diet and to exercise to promote weight loss. I also advised alcohol abstention. There is no indication to repeat any studies at this time. She had a negative IgG4 and normal triglyceride level in the past arguing against autoimmune or hyperTGY pancreatitis. Familial pancreatitis cannot be excluded. The MRI exclude pancreas divisum.
[2016-08-04 13:54] VITALS: BP 97/65; PULSE 58; TEMP 98.1
--- NOTE | 2016-08-04 14:27 | DS ---
Physical Exam: SUBJECTIVE: Patient seen and examined. She denies nausea/vomiting or abdominal pain. Patient tolerated regular diet without any nausea/vomiting/bloating. OBJECTIVE: Tolerated diet, will d/c home with GI referral Patient to follow up with Dr. Donaldson for repeat Dilantin levels, states she has an appointment with him in early August but will call him for earlier appointment. Lipase levels improving Keflex 500mg BID x 5 more days, received Ceftriaxone x 2 doses Vital Signs Period Temp Pulse Resp BP Sys/Argueta Pulse Ox Last 24 Hr 97.6 F-98.4 F 53-67 17-18 93-121/53-71 96-99 PHYSICAL EXAM GENERAL: The patient is awake, alert, and fully oriented, in no acute distress. HEAD: Normal with no signs of trauma. EYES: PERRL, extraocular movements intact, sclera anicteric, conjunctiva clear. No ptosis. ENT: Ears normal, nares patent, oropharynx clear without exudates, moist mucous membranes. NECK: Trachea midline, full range of motion, supple. LUNGS: Breath sounds equal ABDOMEN: Soft, nontender, nondistended, normoactive bowel sounds, no guarding, no rebound, no hepatosplenomegaly, no masses. EXTREMITIES: 2+ pulses, warm, well-perfused, no edema. NEUROLOGICAL: Normal speech, steady gait. PSYCH: Normal mood, normal affect, seizure precautions SKIN: Warm, dry, normal turgor, no rashes or lesions noted LABS Laboratory Results - last 24 hr 08/03/16 08/04/16 08/04/16 21:35 06:00 06:00 WBC 6.1 RBC 4.58 Hgb 12.5 Hct 36.9 MCV 80.6 MCHC 33.8 RDW 13.8 Plt Count 178 MPV 8.9 D Neutrophils % 46.0 Lymphocytes % 37.0 Monocytes % 9.0 Differential Comment Manual diff done Reactive Lymphocytes 8 D Platelet Estimate Adequate Sodium 142 Potassium 4.0 Chloride 109 H Carbon Dioxide 23 Anion Gap 10 BUN 7 Creatinine 0.4 L Creat Clearance w eGFR > 60 POC Glucometer 307 Random Glucose 353 H* Calcium 8.4 L Total Bilirubin 0.6 AST 15 ALT 17 Alkaline Phosphatase 93 Total Protein 6.6 Albumin 2.9 L Lipase 543 H 08/04/16 08/04/16 06:38 12:14 WBC RBC Hgb Hct MCV MCHC RDW Plt Count MPV Neutrophils % Lymphocytes % Monocytes % Differential Comment Reactive Lymphocytes Platelet Estimate Sodium Potassium Chloride Carbon Dioxide Anion Gap BUN Creatinine Creat Clearance w eGFR POC Glucometer 335 278 Random Glucose Calcium Total Bilirubin AST ALT Alkaline Phosphatase Total Protein Albumin Lipase HOSPITAL COURSE: Date of Admission:08/03/16 Date of Discharge: 08/04/16 Patient is a 25 year old female with a significant past medical history of diabetes mellitus, chronic asthma, CHF, chronic pancreatites, hyperthyroidism, bipolar disorder and seizure disorder (pt reports last seizure was 2 weeks ago) . She was admitted on 08/03/2016 with a diagnosis of pancreatitis. On exam, she denies any fever, chills, nausea or vomiting. She was made NPO on admission for the pancreatitis and given IV hydration. Patient admits to having chicken nuggets with cuban fries last night and states that she tolerated this meal without any abdominal discomfort, nausea or vomiting. This morning she tolerated a clear liquid diet. She asked for a new GI consult as she was seen by Dr. Pang in the past. She was able to tolerate a regular diet for lunch without any nausea or vomiting. She will be discharged with a follow up with Dr. Boothe. She will also follow up with her neurologist Dr. Donaldson for repeat Dilantin levels. GI: Pancreatitis - acute on chronic/improving Assessment/Plan: Lipase now 543, improvement from 962 She denies abdominal pain, nausea or vomiting Remains afebrile, WBC within normal limits To follow up with Dr. Garzon as an outpatient : UTI - acute Assessment/Plan: Received Ceftriaxone x 2 doses Will sent with Keflex BID x 5 days Follow up with her PCP within 1 week Psyche: Bipolar disorder - chronic Assessment/Plan: Pt states she is no longer on [place] Follow up with her psychiatrist as an outpatient Pulmonary: Chronic asthma Assessment/Plan: lungs clear to auscultation Not in acute exacerbation Neurology: Seizure disorder - chronic Assessment/Plan: Pt reports last seizure was 2 weeks ago On Dilantin, will need to have levels rechecked with Dr Donaldson as an outpt She has a set appointment with him DVT Prophlaxis - young ambulatory patient Disposition: Discharge with follow up with GI and Neurologist. Patient in agreement. Full code. Minutes to complete discharge: 60 Discharge Summary Reason For Visit: PANCREATITIS Current Active Problems DVT prophylaxis (Acute) Fatty liver (Acute) Pancreatitis (Acute) Condition: Stable - Instructions Diet, Activity, Other Instructions: Ms. Iyer: Please see your PCP within 1-2 weeks after discharge, sooner if you are able to. Please follow up with Dr. Donaldson for repeat Dilantin levels. Keflex has been called into your pharmacy for 5 more days. Please take this medication for your UTI for 5 more days, twice per day. A new GI referral has been placed, please follow up as discussed. Please return to the ER with any new or worsening symptoms. If you have questions, please call me at [phone] Bayleekamran QuarlesJakub, NEGATIVE RETOUCHER [phone] Referrals: Segundo Donaldson MD [Staff Physician] - Bridgett Boothe MD [Staff Physician] - Trey Richardson MD [Primary Care Provider] - Disposition: HOME - Home Medications Comprehensive Discharge Medication List: Ambulatory Orders Albuterol Sulfate Inhaler - [Ventolin HFA Inhaler -] 1 puff IH Q8H 03/22/16 Levothyroxine Sodium [Synthroid] 88 mcg PO DAILY 03/22/16 Clonazepam [Klonopin -] 0.5 mg PO BID PRN 05/23/16 Acetaminophen [Tylenol .Regular Strength -] 650 mg PO Q6H PRN #0 tablet Phenytoin Na Extended [Dilantin -] 200 mg PO BID #120 06/10/16 Topiramate [Topamax -] 25 mg PO BID #60 tablet 06/10/16 Insulin Aspart Prot/Insuln Asp [Novolog Mix 70-30 Flexpen Syrn] 50 units SQ BID 08/03/16 Cephalexin Monohydrate [Keflex -] 500 mg PO BID #10 capsule 08/04/16 This patient is new to me today: Yes Date on this admission: 08/04/16 Emergency Visit: Yes ED Registration Date: 08/03/16 Care time: The patient presented to the Emergency Department on the above date and was hospitalized for further evaluation of their emergent condition. Critical Care patient: No - Discharge Referral Referred to [facility] Med P.C.: No
== END 2016-08-04 16:03 | disposition home or self-care (01) ==
LOC: JER 10:58 → JERBED 15:50 → J7W 18:10
PROVIDERS: ADMIT Internal Medicine; ATTEND Nurse Practitioner Family
PROC: 3E03329 Introduction of Other Anti-infective into Peripheral Vein, Percutaneous Approach (ICD-10-PCS; principal; 2016-08-03)
PROC: 3E0337Z Introduction of Electrolytic and Water Balance Substance into Peripheral Vein, Percutaneous Approach (ICD-10-PCS; 2016-08-03)
PROC: 3E033GC Introduction of Other Therapeutic Substance into Peripheral Vein, Percutaneous Approach (ICD-10-PCS; 2016-08-03)
PROC: 3E013VG Introduction of Insulin into Subcutaneous Tissue, Percutaneous Approach (ICD-10-PCS; 2016-08-03)
DX: K86.1 Other chronic pancreatitis (principal); N39.0 Urinary tract infection, site not specified; I50.9 Heart failure, unspecified; E11.9 Type 2 diabetes mellitus without complications; E03.9 Hypothyroidism, unspecified; J45.909 Unspecified asthma, uncomplicated; F31.9 Bipolar disorder, unspecified; G40.909 Epilepsy, unspecified, not intractable, without status epilepticus; Z79.4 Long term (current) use of insulin; Z87.891 Personal history of nicotine dependence; K76.0 Fatty (change of) liver, not elsewhere classified
CPT/HCPCS: 36415; 71010-TC; 80053; 81003; 81015; 83690; 84703; 85025; 87086; 99284-25; G0378

== ENCOUNTER 2016-09-05 16:53 | Emergency (ER) | payer OTHER ==
[2016-09-05 16:57] VITALS: BP 93/68; PULSE 111; TEMP 98.1; BMI 28.1
[2016-09-05] MEDS ORDERED: SODIUM CHLORIDE 1,000 ML IV STA (17:25)
--- NOTE | 2016-09-05 17:30 | PDOC ---
History of Present Illness <Marialuisa Mansfield - Last Filed: 09/05/16 18:01> - General History Source: Patient, Old Records Exam Limitations: No Limitations - History of Present Illness Initial Comments: 09/05/16 18:03 The patient is a 25 year old female, with a significant past medical history of IDDM, asthma, CHF, pancreatitis, hypothyroidism, bipolar disorder, and seizure disorder (on Dilantin), who presents to the emergency department with dizziness and abdominal pain. She describes her abdominal pain as ranging from mild to moderate, localized in the epigastric region, without radiation or modifying factors. She denies eating anything that might have exacerbated her pancreatitis. The patient denies chest pain, shortness of breath, headache. Denies fever, chills, nausea, vomit, diarrhea and constipation. Denies dysuria, frequency, urgency and hematuria. Allergies: None Past surgical history: None reported Social history: No alcohol, tobacco or drug use reported PMD - Dr. Trey Richardson Neu[facility] - <Enrike Villarreal - Last Filed: 09/05/16 18:02> - General History Source: Patient, Old Records Exam Limitations: No Limitations <Clay Verde - Last Filed: 09/08/16 17:35> - General Chief Complaint: Lightheaded Stated Complaint: LIGHTHEADED Time Seen by Provider: 09/05/16 17:15 Past History <Marialuisa Mansfield - Last Filed: 09/05/16 18:01> <Enrike Villarreal - Last Filed: 09/05/16 18:02> - Past Medical History Anemia: No Asthma: Yes Cancer: No Cardiac Disorders: Yes (RAPID HEARTBEAT HX) CVA: No COPD: No CHF: Yes Dementia: No Diabetes: Yes GI Disorders: Yes (h/o PANCREATITIS.) Disorders: No HTN: No (LOW BP) Hypercholesterolemia: No Liver Disease: No Psychiatric Problems: Yes (anxiety, bipolar) Suicide Attempt (Hx): No Seizures: Yes Thyroid Disease: Yes - Surgical History Abdominal Surgery: No Appendectomy: No Cardiac Surgery: No Cholecystectomy: No Lung Surgery: No Neurologic Surgery: No Orthopedic Surgery: No - Family Disease History Family Disease History: Heart Disease: Grandparents - Reproductive History (#): 1 Para: 0 Cervical CA: No Dysfunctional Uterine Bleeding: No Ectopic : No Endometrial CA: No Polycystic Ovaries: No Therapeutic (s) & number: No Tubal Ligation: No Spontaneous : 1 - Immunization History Immunization Up to Date: Yes - Psycho/Social/Smoking Cessation Hx Anxiety: Yes Suicidal Ideation: No Smoking Status: Yes Smoking History: Never smoked Have you smoked in the past 12 months: No Number of Cigarettes Smoked Daily: 0 If you are a former smoker, when did you quit?: 2011 'Breaking Loose' booklet given: 03/11/12 Hx Alcohol Use: No Drug/Substance Use Hx: No Substance Use Type: None Hx Substance Use Treatment: No <Clay Verde - Last Filed: 09/08/16 17:35> - Past Medical History Allergies/Adverse Reactions: Allergies Allergy/AdvReac Type Severity Reaction Status Date / Time mushroom Allergy Verified 09/05/16 16:56 SEAFOOD Allergy Severe ANAPHYLAXIS Uncoded 09/05/16 16:56 Home Medications: Ambulatory Orders Albuterol Sulfate Inhaler - [Ventolin HFA Inhaler -] 1 puff IH Q8H 03/22/16 Levothyroxine Sodium [Synthroid] 88 mcg PO DAILY 03/22/16 Clonazepam [Klonopin -] 0.5 mg PO BID PRN 05/23/16 Acetaminophen [Tylenol .Regular Strength -] 650 mg PO Q6H PRN #0 tablet Phenytoin Na Extended [Dilantin -] 200 mg PO BID #120 06/10/16 Topiramate [Topamax -] 25 mg PO BID #60 tablet 06/10/16 Insulin Aspart Prot/Insuln Asp [Novolog Mix 70-30 Flexpen Syrn] 50 units SQ BID 08/03/16 Cephalexin Monohydrate [Keflex -] 500 mg PO BID #10 capsule 08/04/16 Review of Systems - Review of Systems Able to Perform ROS?: Yes Comments:: 09/05/16 18:03 GENERAL/CONSTITUTIONAL: No fever or chills. No weakness. HEAD, EYES, EARS, NOSE AND THROAT: No change in vision. No ear pain or discharge. No sore throat. CARDIOVASCULAR: No chest pain or shortness of breath RESPIRATORY: No cough, wheezing, or hemoptysis. GASTROINTESTINAL: (+) Abdominal pain. No nausea, vomiting, diarrhea or constipation. GENITOURINARY: No dysuria, frequency, or change in urination. MUSCULOSKELETAL: No joint or muscle swelling or pain. No neck or back pain. SKIN: No rash NEUROLOGIC: (+) Dizziness. No headache, loss of consciousness, or change in strength/sensation. ENDOCRINE: No increased thirst. No abnormal weight change HEMATOLOGIC/LYMPHATIC: No anemia, easy bleeding, or history of blood clots. ALLERGIC/IMMUNOLOGIC: No hives or skin allergy. <Enrike Villarreal - Last Filed: 09/05/16 18:02> *Physical Exam - Vital Signs Last Vital Signs Temp Pulse Resp BP Pulse Ox 98.1 F 111 H 20 93/68 98 09/05/16 16:54 09/05/16 16:54 09/05/16 16:54 09/05/16 16:54 09/05/16 16:54 <Marialuisa Mansfield - Last Filed: 09/05/16 18:01> - Vital Signs Last Vital Signs Temp Pulse Resp BP Pulse Ox 98.1 F 111 H 20 93/68 98 09/05/16 16:54 09/05/16 16:54 09/05/16 16:54 09/05/16 16:54 09/05/16 16:54 - Physical Exam Comments: 09/05/16 18:03 GENERAL: Awake, alert, and fully oriented, in no acute distress HEAD: No signs of trauma, normocephalic, atraumatic EYES: PERRLA, EOMI, sclera anicteric, conjunctiva clear ENT: Auricles normal inspection, hearing grossly normal, nares patent, oropharynx clear without exudates. (+) Dry mucosa NECK: Normal ROM, supple, no lymphadenopathy, JVD, or masses LUNGS: No distress, speaks full sentences, clear to auscultation bilaterally HEART: Regular rate and rhythm, normal S1 and S2, no murmurs, rubs or gallops, peripheral pulses normal and equal bilaterally. ABDOMEN: (+) Epigastric tenderness to palpation. Soft, normoactive bowel sounds. No guarding, no rebound. No masses EXTREMITIES: Normal inspection, Normal range of motion, no edema. No clubbing or cyanosis. NEUROLOGICAL: Cranial nerves II through XII grossly intact. Normal speech, normal gait, no focal sensorimotor deficits SKIN: Warm, Dry, normal turgor, no rashes or lesions noted. <Enrike Villarreal - Last Filed: 09/05/16 18:02> - Vital Signs Last Vital Signs Temp Pulse Resp BP Pulse Ox 98.1 F 111 H 20 93/68 98 09/05/16 16:54 09/05/16 16:54 09/05/16 16:54 09/05/16 16:54 09/05/16 16:54 <Clay Verde - Last Filed: 09/08/16 17:35> Medical Decision Making - Medical Decision Making 09/05/16 18:00 A portion of this note was written by my scribe, under my supervision. Vital Signs Temp Pulse Resp BP Pulse Ox 98.1 F 111 H 20 93/68 98 09/05/16 16:54 09/05/16 16:54 09/05/16 16:54 09/05/16 16:54 09/05/16 16:54 25 year old female c/ history of <Marialuisa Mansfield - Last Filed: 09/05/16 18:01> - Medical Decision Making 09/05/16 17:26 A portion of this note was written by my scribe, under my supervision. Vital Signs Temp Pulse Resp BP Pulse Ox 98.1 F 111 H 20 93/68 98 09/05/16 16:54 09/05/16 16:54 09/05/16 16:54 09/05/16 16:54 09/05/16 16:54 25 year old female with past medical history of seizure disorder, chronic pancreatitis, asthma, bipolar disorder presents with abdominal pain x several days. Patient reports that feels exactly like her prior pancreatitis. She is unsure of what is causing an acute exacerbation. States she feels nauseous with decreased appetite. Denies fevers, chills. States that the epigastric pain is causing her to feel a tension like headache and lightheadedness. Will r/o pancreatitis. Labs, IVF. Patient declines pain medications at this time. Pt does report she is currently on antibiotics (does not remember the name of the medications) for an UTI. Pt had reported that she felt significantly better and does not want labs or testing. She is requesting to go home. I advised the patient that she has a history of pancreatitis and that I cannot fully evaluate her without testing. Pt was given risks and benefit and she has capacity. Pt decided to leave against medical advice. <Clay Verde - Last Filed: 09/08/16 17:35> *DC/Admit/Observation/Transfer - Discharge Dispostion Admit: No <ShylaTonoa - Last Filed: 09/05/16 18:01> - Attestations Scribe Attestion: 09/05/16 18:04 Documentation prepared by Enrike Villarreal, acting as medical professionals for Clay Verde MD <Enrike Villarreal - Last Filed: 09/05/16 18:02> <Clay Verde - Last Filed: 09/08/16 17:35> Diagnosis at time of Disposition: Abdominal pain, AMA - Signed out against medical advice - Discharge Dispostion Disposition: AGAINST MEDICAL ADVICE Condition at time of disposition: Stable - Referrals Referrals: Trey Richardson MD [Primary Care Provider] - - Patient Instructions Printed Discharge Instructions: DI for Abdominal Pain-Adult Additional Instructions: If your pain returns, please call your doctor or return to the ER.
== END 2016-09-05 18:11 | disposition left against medical advice (07) ==
LOC: JER 16:53
DX: R10.84 Generalized abdominal pain (principal); E10.9 Type 1 diabetes mellitus without complications; Z79.4 Long term (current) use of insulin; I50.9 Heart failure, unspecified; J45.909 Unspecified asthma, uncomplicated; E03.9 Hypothyroidism, unspecified; F31.9 Bipolar disorder, unspecified; G40.909 Epilepsy, unspecified, not intractable, without status epilepticus
CPT/HCPCS: 99281-25

== ENCOUNTER 2016-09-09 14:17 | Emergency (ER) | payer OTHER ==
[2016-09-09 14:36] VITALS: TEMP 97.4; BMI 28.1
--- NOTE | 2016-09-09 14:50 | PDOC ---
History of Present Illness - General History Source: Patient Exam Limitations: No Limitations - History of Present Illness Initial Comments: 09/09/16 14:50 This is a 25 year old female with a history of IDDM1, hypothyroidism ( levothyroxine), bipolar disorder, and chronic pancreatitis, for which she has frequent visits who presents to the ED due to n/v, diarrhea and abd pain since 2 am. Patients symptoms woke her up at 2 am and she describes them as her typical pancreatitis flare up. She is having diffuse and pain, more severe in LUQ, constant, radiating to the back. She has had 10 ep of bonbilious vomiting, 6 of which contained some bright red blood. She had had over 10 eps of green/ brown nonbloody nonmelenous diarrhea. She recorded her glucose to be 200 at 2 am and complains of h/a. she denies sob, cough, dysuria, edema. Her prior pancreatitis episodes have never required icu admission or caused breathing problems. She stats that her pancreatitis is caused by Lithiun, which was d/cd 1 yr ago. She is now on trazodone. She reports a 35 lb weight loss over past 2 mo due to poor appetite. She finished a 7 d course of abx for uti (2 days ago, states it was Flagyl prescribed by Dr Bee) PCP Dr Richardson 09/09/16 15:50 09/09/16 15:58 09/09/16 16:09 09/09/16 16:10 <Princess Monk - Last Filed: 09/09/16 18:55> <Pattie Stringer - Last Filed: 09/09/16 19:26> - General Chief Complaint: Blood Sugar Problem Stated Complaint: BLOOD SUGAR PROBLEM Time Seen by Provider: 09/09/16 14:35 Past History - Past Medical History Anemia: No Asthma: Yes Cancer: No Cardiac Disorders: Yes (RAPID HEARTBEAT HX) CVA: No COPD: No CHF: Yes Dementia: No Diabetes: Yes GI Disorders: Yes (h/o PANCREATITIS.) Disorders: No HTN: No (LOW BP) Hypercholesterolemia: No Liver Disease: No Psychiatric Problems: Yes (anxiety, bipolar) Suicide Attempt (Hx): No Seizures: Yes Thyroid Disease: Yes - Surgical History Abdominal Surgery: No Appendectomy: No Cardiac Surgery: No Cholecystectomy: No Lung Surgery: No Neurologic Surgery: No Orthopedic Surgery: No - Family Disease History Family Disease History: Heart Disease: Grandparents - Reproductive History (#): 1 Para: 0 Cervical CA: No Dysfunctional Uterine Bleeding: No Ectopic : No Endometrial CA: No Polycystic Ovaries: No Therapeutic (s) & number: No Tubal Ligation: No Spontaneous : 1 - Immunization History Immunization Up to Date: Yes - Psycho/Social/Smoking Cessation Hx Anxiety: Yes Suicidal Ideation: No Smoking Status: Yes Smoking History: Never smoked Have you smoked in the past 12 months: No Number of Cigarettes Smoked Daily: 0 If you are a former smoker, when did you quit?: 2011 Information on smoking cessation initiated: No 'Breaking Loose' booklet given: 03/11/12 Hx Alcohol Use: No Drug/Substance Use Hx: No Substance Use Type: None Hx Substance Use Treatment: No <Princess Monk - Last Filed: 09/09/16 18:55> <Pattie Stringer - Last Filed: 09/09/16 19:26> - Past Medical History Allergies/Adverse Reactions: Allergies Allergy/AdvReac Type Severity Reaction Status Date / Time mushroom Allergy Verified 09/09/16 14:36 SEAFOOD Allergy Severe ANAPHYLAXIS Uncoded 09/09/16 14:36 Home Medications: Ambulatory Orders Albuterol Sulfate Inhaler - [Ventolin HFA Inhaler -] 1 puff IH Q8H 03/22/16 Levothyroxine Sodium [Synthroid] 88 mcg PO DAILY 03/22/16 Clonazepam [Klonopin -] 0.5 mg PO BID PRN 05/23/16 Acetaminophen [Tylenol .Regular Strength -] 650 mg PO Q6H PRN #0 tablet Phenytoin Na Extended [Dilantin -] 200 mg PO BID #120 06/10/16 Topiramate [Topamax -] 25 mg PO BID #60 tablet 06/10/16 Insulin Aspart Prot/Insuln Asp [Novolog Mix 70-30 Flexpen Syrn] 50 units SQ BID 08/03/16 Cephalexin Monohydrate [Keflex -] 500 mg PO BID #10 capsule 08/04/16 Review of Systems - Review of Systems Able to Perform ROS?: Yes Is the patient limited Turkish proficient: No Constitutional: Yes: Loss of Appetite, Unexplained wgt Loss. No: Chills, Fever HEENTM: No: Blurred Vision, Difficulty Swallowing Respiratory: No: Cough, Orthopnea, Shortness of Breath, Wheezing, Hemoptysis Cardiac (ROS): No: Chest Pain, Edema, Irregular Heart Rate, Lightheadedness, Palpitations, Syncope ABD/GI: Yes: Diarrhea, Nausea, Poor Appetite, Vomiting, Abdominal cramping. No : Abdominal Distended, Constipated, Difficulty Swallowing, Rectal Bleeding, Tarry Stools : No: Dysuria, Flank Pain Musculoskeletal: No: Joint Pain, Muscle Weakness Integumentary: No: Bruising, Rash Neurological: Yes: Headache. No: Numbness, Paresthesia, Weakness Psychiatric: No: Anxiety Endocrine: Yes: Change in Weight. No: Increased Urine Hematologic/Lymphatic: No: Anemia, Blood Clots, Easy Bleeding, Easy Bruising All Other Systems: Reviewed and Negative <Princess Monk - Last Filed: 09/09/16 18:55> *Physical Exam - Vital Signs Last Vital Signs Temp Pulse Resp BP Pulse Ox 97.4 F L 87 18 114/56 95 09/09/16 14:34 09/09/16 14:34 09/09/16 14:34 09/09/16 14:34 09/09/16 14:34 - Physical Exam Comments: 09/09/16 16:11 General: nad, aao/x HEENT: normocephalic, atraumatic, perrla, eomi, no scleral icterus Neuro: CN II-XII grossly intact CV: rrr s1s2 Pulm: cta b/l GI: soft, diffusely mildly tentder, mostly R side, mild cva tenderness b/l, nondistended, normoactive bowel sounds, no mass, an bruising. Musculoskeletal: no peripheral edema 09/09/16 16:14 <Princess Monk - Last Filed: 09/09/16 18:55> - Vital Signs Last Vital Signs Temp Pulse Resp BP Pulse Ox 97.4 F L 87 18 114/56 95 09/09/16 14:34 09/09/16 14:34 09/09/16 14:34 09/09/16 14:34 09/09/16 14:34 <Pattie Stringer - Last Filed: 09/09/16 19:26> ED Treatment Course - LABORATORY CBC & Chemistry Diagram: 09/09/16 14:45 09/09/16 14:45 <Princess Monk - Last Filed: 09/09/16 18:55> - LABORATORY CBC & Chemistry Diagram: 09/09/16 14:45 09/09/16 14:45 - ADDITIONAL ORDERS Additional order review: Laboratory Results 09/09/16 09/09/16 09/09/16 16:00 16:00 14:45 Sodium 138 Potassium 3.9 Chloride 104 Carbon Dioxide 23 Anion Gap 11 BUN 12 D Creatinine 0.8 D Creat Clearance w eGFR > 60 Random Glucose 474 H* D Calcium 9.0 Total Bilirubin 0.4 D AST 8 L D ALT 17 Alkaline Phosphatase 111 Total Protein 6.7 Albumin 3.1 L Total Amylase 57 D Lipase 1243 H Acetone, Qual 09/09/16 14:45 Sodium Potassium Chloride Carbon Dioxide Anion Gap BUN Creatinine Creat Clearance w eGFR Random Glucose Calcium Total Bilirubin AST ALT Alkaline Phosphatase Total Protein Albumin Total Amylase Lipase Acetone, Qual Negative L 09/09/16 14:45 RBC 4.71 MCV 80.2 MCHC 33.3 RDW 13.4 MPV 8.1 Neutrophils % 53.0 Lymphocytes % 38.0 Monocytes % 6.0 Eosinophils % 2.0 D - Medications Given in the ED: ED Medications Discontinued Medications Generic Name Dose Route Start Last Admin Trade Name Freq PRN Reason Stop Dose Admin Sodium Chloride 1,000 mls @ 1,000 mls/hr 09/09/16 16:02 09/09/16 16:04 Normal Saline - IV 09/09/16 17:01 1,000 mls/hr ASDIR STA Administration Sodium Chloride 500 mls @ 500 mls/hr 09/09/16 18:16 09/09/16 18:51 Normal Saline - IV 09/09/16 19:15 500 mls/hr ASDIR STA Administration Insulin Aspart 10 units 09/09/16 16:01 09/09/16 16:10 Novolog Vial SQ 09/09/16 16:02 10 units ONCE ONE Administration Protocol <Pattie Stringer - Last Filed: 09/09/16 19:26> Medical Decision Making - Medical Decision Making 09/09/16 16:15 Patient presents with clinical picture consistent with acute exacerbation of chronic pancreatitins; r/o dka and other causes of abd symptoms cbc w diff, cmp, lipase, amylase, ua, acetone, start IVF NS 1L abd US -cbc unremarkable -gluc 474 on cmp, will give 10 U Novolog IM and continue IVF (second L) 09/09/16 16:17 09/09/16 16:17 09/09/16 17:21 lipase 1247, consistent with panctreatitis exacerbation. 09/09/16 17:23 ER initial presentation Ransons =1; low risk 09/09/16 18:04 acetone negative 09/09/16 18:24 09/09/16 18:55 patient feels better, will try po trial 09/09/16 18:57 <Princess Monk - Last Filed: 09/09/16 18:55> - Medical Decision Making 09/09/16 19:23 Pt presents to the ED complaining of diffuse abdominal pain, nausea and vomiting similar to her chronic pancreatitis. History of multiple episodes of the same with frequent visits to the ED. Welll appearing with non tender abdomen on my exam. Lipase is 1200, but patient is tolerating PO and asking to go home. Will discharge home with follow up with PMD. <Pattie Stringer - Last Filed: 09/09/16 19:26> *DC/Admit/Observation/Transfer <Princess Monk - Last Filed: 09/09/16 18:55> - Discharge Dispostion Admit: No <Pattie Stringer - Last Filed: 09/09/16 19:26> Diagnosis at time of Disposition: Chronic pancreatitis Qualifiers: Pancreatitis type: other Qualified Code(s): K86.1 - Other chronic pancreatitis - Discharge Dispostion Disposition: HOME Condition at time of disposition: Good
[2016-09-09 14:56] LABS: MCH 26.7 pg (25.7-33.7); MCHC 33.3 g/dl (32.0-36.0); MEAN CELL VOLUME 80.2 fl (80-96); MEAN PLT VOLUME 8.1 fl (7.5-11.1); PLATELET COUNT 174 K/MM3 (134-434); RDW 13.4 % (11.6-15.6); WHITE BLOOD COUNT 6.9 K/mm3 (4.0-10.0)
[2016-09-09 15:34] LABS: ALBUMIN 3.1 g/dl (3.4-5.0); ALK PHOS 111 U/L (45-117); ANION GAP 11 (8-16); BILIRUBIN,TOTAL 0.4 mg/dL (0.2-1.0); CO2 23 mmol/L (21-32); CREATININE 0.8 mg/dL (0.55-1.02); SGOT/AST 8 U/L (15-37); SGPT/ALT 17 U/L (12-78); TOT PROT 6.7 g/dl (6.4-8.2)
[2016-09-09 15:54] LABS: GLUCOSE,RANDOM 474 mg/dL (74-106)
[2016-09-09] MEDS ORDERED: INSULIN (NOVOLOG) ASPART 100 UNITS/ML 10ML VIAL SQ ONE (16:01)
[2016-09-09] MEDS ORDERED: SODIUM CHLORIDE 1,000 ML IV STA (16:02)
[2016-09-09 16:03] LABS: PLATELET ESTIMATE ADEQUATE (NORMAL)
[2016-09-09] MEDS ORDERED: SODIUM CHLORIDE 500 ML IV STA (18:16)
--- NOTE | 2016-09-09 19:36 | PDOC ---
*Physical Exam - Vital Signs Last Vital Signs Temp Pulse Resp BP Pulse Ox 97.4 F L 87 18 114/56 95 09/09/16 14:34 09/09/16 14:34 09/09/16 14:34 09/09/16 14:34 09/09/16 14:34 ED Treatment Course - LABORATORY CBC & Chemistry Diagram: 09/09/16 14:45 09/09/16 14:45 - ADDITIONAL ORDERS Additional order review: Laboratory Results 09/09/16 09/09/16 09/09/16 16:00 16:00 14:45 Sodium 138 Potassium 3.9 Chloride 104 Carbon Dioxide 23 Anion Gap 11 BUN 12 D Creatinine 0.8 D Creat Clearance w eGFR > 60 Random Glucose 474 H* D Calcium 9.0 Total Bilirubin 0.4 D AST 8 L D ALT 17 Alkaline Phosphatase 111 Total Protein 6.7 Albumin 3.1 L Total Amylase 57 D Lipase 1243 H Acetone, Qual 09/09/16 14:45 Sodium Potassium Chloride Carbon Dioxide Anion Gap BUN Creatinine Creat Clearance w eGFR Random Glucose Calcium Total Bilirubin AST ALT Alkaline Phosphatase Total Protein Albumin Total Amylase Lipase Acetone, Qual Negative L 09/09/16 14:45 RBC 4.71 MCV 80.2 MCHC 33.3 RDW 13.4 MPV 8.1 Neutrophils % 53.0 Lymphocytes % 38.0 Monocytes % 6.0 Eosinophils % 2.0 D - Medications Given in the ED: ED Medications Discontinued Medications Generic Name Dose Route Start Last Admin Trade Name Freq PRN Reason Stop Dose Admin Sodium Chloride 1,000 mls @ 1,000 mls/hr 09/09/16 16:02 09/09/16 16:04 Normal Saline - IV 09/09/16 17:01 1,000 mls/hr ASDIR STA Administration Sodium Chloride 500 mls @ 500 mls/hr 09/09/16 18:16 09/09/16 18:51 Normal Saline - IV 09/09/16 19:15 500 mls/hr ASDIR STA Administration Insulin Aspart 10 units 09/09/16 16:01 09/09/16 16:10 Novolog Vial SQ 09/09/16 16:02 10 units ONCE ONE Administration Protocol Medical Decision Making - Medical Decision Making 09/09/16 19:37 I received this patient on sign out She has insulin dependent diabetes, chronic pancreatitis Pt seen on rounds states she feels well No abdominal pain No vomiting Tolerated Crackers Requesting a sandwich Will discharge to home Laboratory Tests 09/09/16 09/09/16 09/09/16 14:45 16:00 16:00 Random Glucose 474 H* D Total Amylase 57 D Lipase 1243 H 09/09/16 19:39 09/09/16 19:40 Laboratory Tests 09/09/16 14:45 Sodium 138 Potassium 3.9 Chloride 104 Carbon Dioxide 23 Anion Gap 11 *DC/Admit/Observation/Transfer Diagnosis at time of Disposition: Chronic pancreatitis Qualifiers: Pancreatitis type: other Qualified Code(s): K86.1 - Other chronic pancreatitis - Discharge Dispostion Disposition: HOME Condition at time of disposition: Stable Admit: No - Patient Instructions Printed Discharge Instructions: DI for Hyperglycemia -- Adult, DI for Pancreatitis Additional Instructions: Thank you for coming in to the ER today Please take your medications as prescribed Please return to the ER for any other concerns or complaints Please see your primary doctor in 3-4 days
[2016-09-09 19:53] VITALS: BP 120/65; PULSE 72
--- NOTE | 2016-09-10 12:54 | EKG ---
Test Reason : Blood Pressure : / mmHG Vent. Rate : 058 BPM Atrial Rate : 058 BPM P-R Int : 208 ms QRS Dur : 096 ms QT Int : 420 ms P-R-T Axes : 050 036 042 degrees QTc Int : 412 ms SINUS BRADYCARDIA OTHERWISE NORMAL ECG WHEN COMPARED WITH ECG OF 14-JUL-2016 10:30, NO SIGNIFICANT CHANGE WAS FOUND Confirmed by GEE SUAREZ MD ([id number]) on 09/10/2016 12:53:44 PM Referred By: Confirmed By:GEE SUAREZ MD
== END 2016-09-09 19:58 | disposition home or self-care (01) ==
LOC: JER 14:17
PROC: 3E0337Z Introduction of Electrolytic and Water Balance Substance into Peripheral Vein, Percutaneous Approach (ICD-10-PCS; principal; 2016-09-09)
PROC: 3E013VG Introduction of Insulin into Subcutaneous Tissue, Percutaneous Approach (ICD-10-PCS; 2016-09-09)
DX: K86.1 Other chronic pancreatitis (principal); E10.9 Type 1 diabetes mellitus without complications; Z79.4 Long term (current) use of insulin; E03.9 Hypothyroidism, unspecified; F31.9 Bipolar disorder, unspecified; G40.909 Epilepsy, unspecified, not intractable, without status epilepticus; J45.909 Unspecified asthma, uncomplicated
CPT/HCPCS: 36415; 76700-TC; 80053; 82009; 82150; 83690; 85025; 93005; 93010; 96360; 96361; 96372; 99283-25

== ENCOUNTER 2016-09-16 23:06 | Emergency (ER) | payer OTHER ==
[2016-09-16 23:32] VITALS: BP 123/71; PULSE 88; TEMP 98.7; BMI 28.1
--- NOTE | 2016-09-17 00:23 | PDOC ---
History of Present Illness - General Chief Complaint: Pain, Acute Stated Complaint: 8 WEEKS History Source: Patient Exam Limitations: No Limitations - History of Present Illness Initial Comments: 09/17/16 00:17 Patient is a 25 year old male with h/o bipolar/depression, hypothyroid, DM seizure, hypothyroid, low b/p, panic disorder, chf, c/o lower abd pain and emotional upset. Patient states she is 8 weeks preg (+) home preg test in June , LMP 06/16/16, had an argument with her mother got emotionally upset and so EMS was called. Pain now c/o lower abd pain and she has had a lot of miscarriage and is concerned. Denies any vaginal bleeding, no dysuria PMD: Dr. Callejas PMHX: as above PSOCHx: neg etoh, drug, cig ALL: NKDA GENERAL/CONSTITUTIONAL: [No fever or chills. No weakness. No weight change.] HEAD, EYES, EARS, NOSE AND THROAT: [No change in vision. No ear pain or discharge. No sore throat.] CARDIOVASCULAR: [No chest pain or shortness of breath.] RESPIRATORY: [No cough, wheezing, or hemoptysis.] GASTROINTESTINAL: [No nausea, vomiting, diarrhea or constipation. No rectal bleeding.] GENITOURINARY: [No dysuria, frequency, or change in urination.] MUSCULOSKELETAL: [No joint or muscle swelling or pain. No neck or back pain.] SKIN AND BREASTS: [No rash or easy bruising.] NEUROLOGIC: [No headache, vertigo, loss of consciousness, or loss of sensation.] PSYCHIATRIC: (+) depression (+) anxiety.] ENDOCRINE: [No increased thirst. No abnormal weight change.] HEMATOLOGIC/LYMPHATIC: [No anemia, easy bleeding, or history of blood clots.] ALLERGIC/IMMUNOLOGIC: [No hives or skin allergy. No latex allergy.] GENERAL: [The patient is awake, alert, and fully oriented, in no acute distress. ] HEAD: [Normal with no signs of trauma.] EYES: [Pupils equal, round and reactive to light, extraocular movements intact, sclera anicteric, conjunctiva clear.] ENT: [Ears normal, nares patent, oropharynx clear without exudates. Moist mucous membranes.] NECK: [Normal range of motion, supple without lymphadenopathy, JVD, or masses.] LUNGS: [Breath sounds equal, clear to auscultation bilaterally. No wheezes, and no crackles.] HEART: [Regular rate and rhythm, normal S1 and S2 without murmur, rub.] ABDOMEN: [Soft, nontender, normoactive bowel sounds. No guarding, no rebound. No masses.] PELVIC: normal external genitalia, no bleeding os closed, nontender adenexa, no cmt. EXTREMITIES: [Normal range of motion, no edema. No clubbing or cyanosis. No cords, erythema, or tenderness.] NEUROLOGICAL: [Cranial nerves II through XII grossly intact. Normal speech, normal gait.] PSYCH: [agitated angry mood, affect.] SKIN: [Warm, Dry, normal turgor, no rashes or lesions noted.] Past History - Past Medical History Allergies/Adverse Reactions: Allergies Allergy/AdvReac Type Severity Reaction Status Date / Time mushroom Allergy Verified 09/16/16 23:32 SEAFOOD Allergy Severe ANAPHYLAXIS Uncoded 09/16/16 23:32 Home Medications: Ambulatory Orders Albuterol Sulfate Inhaler - [Ventolin HFA Inhaler -] 1 puff IH Q8H 03/22/16 Levothyroxine Sodium [Synthroid] 88 mcg PO DAILY 03/22/16 Clonazepam [Klonopin -] 0.5 mg PO BID PRN 05/23/16 Acetaminophen [Tylenol .Regular Strength -] 650 mg PO Q6H PRN #0 tablet Phenytoin Na Extended [Dilantin -] 200 mg PO BID #120 06/10/16 Topiramate [Topamax -] 25 mg PO BID #60 tablet 06/10/16 Insulin Aspart Prot/Insuln Asp [Novolog Mix 70-30 Flexpen Syrn] 50 units SQ BID 08/03/16 Cephalexin Monohydrate [Keflex -] 500 mg PO BID #10 capsule 08/04/16 Anemia: No Asthma: Yes Cancer: No Cardiac Disorders: Yes (RAPID HEARTBEAT HX) CVA: No COPD: No CHF: Yes Dementia: No Diabetes: Yes GI Disorders: Yes (h/o PANCREATITIS.) Disorders: No HTN: No (LOW BP) Hypercholesterolemia: No Liver Disease: No Psychiatric Problems: Yes (anxiety, bipolar) Suicide Attempt (Hx): No Seizures: Yes Thyroid Disease: Yes - Surgical History Abdominal Surgery: No Appendectomy: No Cardiac Surgery: No Cholecystectomy: No Lung Surgery: No Neurologic Surgery: No Orthopedic Surgery: No - Family Disease History Family Disease History: Heart Disease: Grandparents - Reproductive History (#): 1 Para: 0 Cervical CA: No Dysfunctional Uterine Bleeding: No Ectopic : No Endometrial CA: No Polycystic Ovaries: No Therapeutic (s) & number: No Tubal Ligation: No Spontaneous : 1 - Immunization History Immunization Up to Date: Yes - Psycho/Social/Smoking Cessation Hx Anxiety: Yes Suicidal Ideation: No Smoking Status: Yes Smoking History: Never smoked Have you smoked in the past 12 months: No Number of Cigarettes Smoked Daily: 0 If you are a former smoker, when did you quit?: 2011 Information on smoking cessation initiated: No 'Breaking Loose' booklet given: 03/11/12 Hx Alcohol Use: No Drug/Substance Use Hx: No Substance Use Type: None Hx Substance Use Treatment: No Abd/GI Specific PMHX - Complaint Specific PMHX Pancreatitis: Yes *Physical Exam - Vital Signs Last Vital Signs Temp Pulse Resp BP Pulse Ox 98.7 F 88 18 123/71 98 09/16/16 23:30 09/16/16 23:30 09/16/16 23:30 09/16/16 23:30 09/16/16 23:30 Medical Decision Making - Medical Decision Making 09/17/16 00:26 Patient is a 25 year old male with h/o bipolar/depression, hypothyroid, DM seizure, hypothyroid, low b/p, panic disorder, chf, c/o lower abd pain and emotional upset. Patient states she is 8 weeks preg (+) home preg test in June , LMP 06/16/16, had an argument with her mother got emotionally upset and so EMS was called. Transabd US neg, Urine preg neg. Paitent states does not show up on urine test but refused any blood testing to be done, I discussed the physical exam findings, ancillary test results and final diagnoses with the patient. I answered all of the patient's questions. The patient was satisfied with the care received and felt comfortable with the discharge plan and treatment plan. The Patient agrees to follow up with the primary care physician within 24-72 hours. *DC/Admit/Observation/Transfer Diagnosis at time of Disposition: Emotional upset, Abdominal pain - Discharge Dispostion Admit: No - Patient Instructions Printed Discharge Instructions: DI for Anxiety -- Adult Additional Instructions: Your Discharge Instructions: You must call primary care physician within 24 hours to arrange follow-up. Return to the Emergency Department with any new, persistent or worsening symptoms, for fever, chills, SOB, dizziness or any other concerning changes that may occur. you must follow up with PMD and OBS
== END 2016-09-17 00:54 | disposition home or self-care (01) ==
LOC: JER 23:06
DX: F31.9 Bipolar disorder, unspecified (principal); E10.9 Type 1 diabetes mellitus without complications; Z79.4 Long term (current) use of insulin; F41.0 Panic disorder [episodic paroxysmal anxiety]; F48.9 Nonpsychotic mental disorder, unspecified
CPT/HCPCS: 84703; 99281-25

== ENCOUNTER 2016-10-04 13:04 | Emergency (ER) | payer OTHER ==
[2016-10-04 13:14] VITALS: BP 115/66; PULSE 82; TEMP 98.4; BMI 31.9
[2016-10-04] MEDS ORDERED: ACETAMINOPHEN WITH CODEINE 300MG/30MG TABLET PO STA (13:44)
--- NOTE | 2016-10-04 13:52 | PDOC ---
History of Present Illness - General Chief Complaint: Oral Ulcers Stated Complaint: MOUTH PAIN Time Seen by Provider: 10/04/16 13:34 History Source: Patient Exam Limitations: No Limitations - History of Present Illness Initial Comments: 10/04/16 15:34 26 yr female multiple medical and psychological problems with c/o fractured tooth left upper 4 days ago eating candy. Pt has no fever no chills, poor dentition. Past History - Past Medical History Allergies/Adverse Reactions: Allergies Allergy/AdvReac Type Severity Reaction Status Date / Time mushroom Allergy Verified 10/04/16 13:14 SEAFOOD Allergy Severe ANAPHYLAXIS Uncoded 10/04/16 13:14 Home Medications: Ambulatory Orders Albuterol Sulfate Inhaler - [Ventolin HFA Inhaler -] 1 puff IH Q8H 03/22/16 Levothyroxine Sodium [Synthroid] 88 mcg PO DAILY 03/22/16 Clonazepam [Klonopin -] 0.5 mg PO BID PRN 05/23/16 Acetaminophen [Tylenol .Regular Strength -] 650 mg PO Q6H PRN #0 tablet Phenytoin Na Extended [Dilantin -] 200 mg PO BID #120 06/10/16 Topiramate [Topamax -] 25 mg PO BID #60 tablet 06/10/16 Insulin Aspart Prot/Insuln Asp [Novolog Mix 70-30 Flexpen Syrn] 50 units SQ BID 08/03/16 Acetaminophen W/ Codeine #3 [Tylenol # 3 -] 1 tab PO Q6H PRN #12 tablet MDD 4 tabs 10/04/16 Anemia: No Asthma: Yes Cancer: No Cardiac Disorders: Yes (RAPID HEARTBEAT HX) CVA: No COPD: No CHF: Yes Dementia: No Diabetes: Yes GI Disorders: Yes (h/o PANCREATITIS.) Disorders: No HTN: No (LOW BP) Hypercholesterolemia: No Liver Disease: No Psychiatric Problems: Yes (anxiety, bipolar) Suicide Attempt (Hx): No Seizures: Yes Thyroid Disease: Yes - Surgical History Abdominal Surgery: No Appendectomy: No Cardiac Surgery: No Cholecystectomy: No Lung Surgery: No Neurologic Surgery: No Orthopedic Surgery: No - Family Disease History Family Disease History: Heart Disease: Grandparents - Reproductive History (#): 1 Para: 0 Cervical CA: No Dysfunctional Uterine Bleeding: No Ectopic : No Endometrial CA: No Polycystic Ovaries: No Therapeutic (s) & number: No Tubal Ligation: No Spontaneous : 1 - Immunization History Immunization Up to Date: Yes - Psycho/Social/Smoking Cessation Hx Anxiety: Yes Suicidal Ideation: No Smoking Status: Yes Smoking History: Never smoked Have you smoked in the past 12 months: No Number of Cigarettes Smoked Daily: 0 If you are a former smoker, when did you quit?: 2011 Information on smoking cessation initiated: No 'Breaking Loose' booklet given: 03/11/12 Hx Alcohol Use: No Drug/Substance Use Hx: No Substance Use Type: None Hx Substance Use Treatment: No Review of Systems - Review of Systems Able to Perform ROS?: Yes Is the patient limited Citizen Of [place] proficient: No Constitutional: No: Symptoms Reported HEENTM: Yes: Symptoms Reported, See HPI Respiratory: No: Symptoms reported Cardiac (ROS): No: Symptoms Reported ABD/GI: No: Symptoms Reported : No: Symptoms Reported Musculoskeletal: No: Symptoms Reported Integumentary: No: Symptoms Reported Neurological: No: Symptoms reported *Physical Exam - Vital Signs Last Vital Signs Temp Pulse Resp BP Pulse Ox 98.4 F 82 17 115/66 100 10/04/16 13:09 10/04/16 13:09 10/04/16 13:09 10/04/16 13:09 10/04/16 13:09 - Physical Exam General Appearance: Yes: Nourished, Appropriately Dressed HEENT: positive: EOMI, MARISELA, Normal ENT Inspection, TMs Normal, Pharynx Normal, Other (poor dental hygeine, plaque noted, right upper tooth #3 cracked ) Neck: positive: Supple. negative: Tender Respiratory/Chest: positive: Lungs Clear, Normal Breath Sounds Cardiovascular: positive: Regular Rhythm, Regular Rate Musculoskeletal: positive: Normal Inspection Extremity: positive: Normal Capillary Refill, Normal Inspection, Normal Range of Motion Integumentary: positive: Normal Color, Dry, Warm Neurologic: positive: Fully Oriented, Alert, Normal Mood/Affect, Normal Response , Motor Strength 5/5 Medical Decision Making - Medical Decision Making 10/04/16 15:40 cc: cracked tooth on candy no fever no abscess seen on exam will give tylenol #3 12 pills for severe pain, motrin for mild to moderate pain pt has been given the information for the dental clinic at [facility] pt agrees to follow up with the dental clinic as the pain can get worse and pt needs dental exam. *DC/Admit/Observation/Transfer Diagnosis at time of Disposition: Toothache Broken tooth Qualifiers: Encounter type: initial encounter Fracture type: closed Qualified Code(s): S02.5XXA - Fracture of tooth (traumatic), initial encounter for closed fracture - Discharge Dispostion Disposition: HOME Condition at time of disposition: Good - Prescriptions Prescriptions: Acetaminophen W/ Codeine #3 [Tylenol # 3 -] 1 tab PO Q6H PRN #12 tablet MDD 4 tabs PRN Reason: Severe Pain - Referrals Referrals: Trey Richardson MD [Primary Care Provider] - - Patient Instructions Additional Instructions: take motrin (over the counter advil, ibuprofen or motrin) for mild to moderate pain take tylenol #3 for severe pain follow with the dental clinic at [facility] [address], [address] [place] [address] Services Offered General Dentistry Oral Surgery Hours: Mon, Thurs, Fri: 9:00am - 5:00pm , Sat: 9:00am - 7:00pm take the medication for pain as prescribed please follow with the dental clinic at [facility] for care or your dentist
== END 2016-10-04 14:01 | disposition home or self-care (01) ==
LOC: JERFT 13:04
DX: S02.5XXA Fracture of tooth (traumatic), initial encounter for closed fracture (principal); X58.XXXA Exposure to other specified factors, initial encounter; Y92.018 Other place in single-family (private) house as the place of occurrence of the external cause; E10.9 Type 1 diabetes mellitus without complications; Z79.4 Long term (current) use of insulin; J45.909 Unspecified asthma, uncomplicated; F41.9 Anxiety disorder, unspecified; F31.9 Bipolar disorder, unspecified; G40.909 Epilepsy, unspecified, not intractable, without status epilepticus; Z87.19 Personal history of other diseases of the digestive system
CPT/HCPCS: 99281-25

== ENCOUNTER 2016-10-19 10:33 | Emergency (ER) | payer OTHER ==
[2016-10-19 10:40] VITALS: TEMP 98.6; BMI 30.4
--- NOTE | 2016-10-19 11:09 | PDOC ---
History of Present Illness - General Chief Complaint: Pain, Acute Stated Complaint: PAIN Time Seen by Provider: 10/19/16 10:51 - History of Present Illness Initial Comments: 10/19/16 11:09 Ms. Iyer is a 26 year old female with a significant past medical history of Epilepsy, Pancreatitis, Asthma, CHF, hypothyroid, Anxiety, and Depression who presents to the emergency department with a one day history of upper abdominal pain with limited diarrhea, nausea, and vomiting. She says that she has recently had some tightness in her chest and that she feels generally weak. The patient denies headache and dizziness. Denies fever, chills, and constipation. Denies dysuria, frequency, urgency and hematuria. Allergies: shellfish and mushrooms Past surgical history: denies Social history: social EtOH PMD - Margey 10/19/16 11:10 Past History - Past Medical History Allergies/Adverse Reactions: Allergies Allergy/AdvReac Type Severity Reaction Status Date / Time mushroom Allergy Verified 10/19/16 10:39 SEAFOOD Allergy Severe ANAPHYLAXIS Uncoded 10/19/16 10:39 Home Medications: Ambulatory Orders Albuterol Sulfate Inhaler - [Ventolin HFA Inhaler -] 1 puff IH Q8H 03/22/16 Levothyroxine Sodium [Synthroid] 88 mcg PO DAILY 03/22/16 Clonazepam [Klonopin -] 0.5 mg PO BID PRN 05/23/16 Acetaminophen [Tylenol .Regular Strength -] 650 mg PO Q6H PRN #0 tablet Phenytoin Na Extended [Dilantin -] 200 mg PO BID #120 06/10/16 Topiramate [Topamax -] 25 mg PO BID #60 tablet 06/10/16 Insulin Aspart Prot/Insuln Asp [Novolog Mix 70-30 Flexpen Syrn] 50 units SQ BID 08/03/16 Acetaminophen W/ Codeine #3 [Tylenol # 3 -] 1 tab PO Q6H PRN #12 tablet MDD 4 tabs 10/04/16 Anemia: No Asthma: Yes Cancer: No Cardiac Disorders: Yes (RAPID HEARTBEAT HX) CVA: No COPD: No CHF: Yes Dementia: No Diabetes: Yes GI Disorders: Yes (h/o PANCREATITIS.) Disorders: No HTN: No (LOW BP) Hypercholesterolemia: No Liver Disease: No Psychiatric Problems: Yes (anxiety, bipolar) Suicide Attempt (Hx): No Seizures: Yes Thyroid Disease: Yes - Surgical History Abdominal Surgery: No Appendectomy: No Cardiac Surgery: No Cholecystectomy: No Lung Surgery: No Neurologic Surgery: No Orthopedic Surgery: No - Family Disease History Family Disease History: Heart Disease: Grandparents - Reproductive History (#): 1 Para: 0 Cervical CA: No Dysfunctional Uterine Bleeding: No Ectopic : No Endometrial CA: No Polycystic Ovaries: No Therapeutic (s) & number: No Tubal Ligation: No Spontaneous : 1 - Immunization History Immunization Up to Date: Yes - Psycho/Social/Smoking Cessation Hx Anxiety: Yes Suicidal Ideation: No Smoking Status: Yes Smoking History: Never smoked Have you smoked in the past 12 months: No Number of Cigarettes Smoked Daily: 0 If you are a former smoker, when did you quit?: 2011 'Breaking Loose' booklet given: 03/11/12 Hx Alcohol Use: No Drug/Substance Use Hx: No Substance Use Type: None Hx Substance Use Treatment: No Review of Systems - Review of Systems Comments:: 10/19/16 11:09 GENERAL/CONSTITUTIONAL: No fever or chills. No weakness. HEAD, EYES, EARS, NOSE AND THROAT: No change in vision. No ear pain or discharge. No sore throat. CARDIOVASCULAR: No chest pain or shortness of breath RESPIRATORY: No cough, wheezing, or hemoptysis. GASTROINTESTINAL: No nausea, vomiting, diarrhea or constipation. GENITOURINARY: No dysuria, frequency, or change in urination. MUSCULOSKELETAL: No joint or muscle swelling or pain. No neck or back pain. SKIN: No rash NEUROLOGIC: No headache, vertigo, loss of consciousness, or change in strength/ sensation. ENDOCRINE: No increased thirst. No abnormal weight change HEMATOLOGIC/LYMPHATIC: No anemia, easy bleeding, or history of blood clots. ALLERGIC/IMMUNOLOGIC: No hives or skin allergy. *Physical Exam - Vital Signs Last Vital Signs Temp Pulse Resp BP Pulse Ox 98.6 F 83 18 107/64 97 10/19/16 10:39 10/19/16 10:39 10/19/16 10:39 10/19/16 10:39 10/19/16 10:39 - Physical Exam Comments: 10/19/16 11:10 GENERAL: Awake, alert, and fully oriented, in no acute distress HEAD: No signs of trauma, normocephalic, atraumatic EYES: PERRLA, EOMI, sclera anicteric, conjunctiva clear ENT: Auricles normal inspection, hearing grossly normal, nares patent, oropharynx clear without exudates. Moist mucosa NECK: Normal ROM, supple, no lymphadenopathy, JVD, or masses LUNGS: No distress, speaks full sentences, clear to auscultation bilaterally HEART: Regular rate and rhythm, normal S1 and S2, no murmurs, rubs or gallops, peripheral pulses normal and equal bilaterally. ABDOMEN: Soft, nontender, normoactive bowel sounds. No guarding, no rebound. No masses EXTREMITIES: Normal inspection, Normal range of motion, no edema. No clubbing or cyanosis. NEUROLOGICAL: Cranial nerves II through XII grossly intact. Normal speech, normal gait, no focal sensorimotor deficits SKIN: Warm, Dry, normal turgor, no rashes or lesions noted. ED Treatment Course - LABORATORY CBC & Chemistry Diagram: 10/19/16 11:31 10/19/16 11:31 Medical Decision Making - Medical Decision Making 10/19/16 13:55 Ms. Iyer is a well known patient who presents with some nauseau complaining that her "pancreatitis is acting up." Lipase/basic labs ordered as well as upreg/hiv on request. HIV/ negative, glucose elevated to 448. Patient decided to leave AMA 10/19/16 14:26 *DC/Admit/Observation/Transfer Diagnosis at time of Disposition: Abdominal pain - Discharge Dispostion Disposition: AGAINST MEDICAL ADVICE - Referrals Referrals: Trey Richardson MD [Primary Care Provider] - - Patient Instructions Printed Discharge Instructions: DI for Hyperglycemia -- Adult Additional Instructions: Please return if you experience any increased pain or other concerning symptoms. - Attestations Physician Attestion: 10/19/16 14:28 I, Dr. Abimael Cummins, attest that this document has been prepared under my direction and personally reviewed by me in its entirety. I further attest, that it accurately reflects all work, treatment, procedures and medical decision -making performed by me.
[2016-10-19] MEDS ORDERED: SODIUM CHLORIDE 1,000 ML IV STA (11:17)
[2016-10-19] MEDS ORDERED: ONDANSETRON 4 MG/2 ML VIAL IVPB ONE (11:17)
--- NOTE | 2016-10-19 11:23 | PDOC ---
Attending Attestation - Resident Resident Name: Abimael Cummins - ED Attending Attestation I have performed the following: I have examined & evaluated the patient, The case was reviewed & discussed with the resident, I agree w/resident's findings & plan, Exceptions are as noted - HPI HPI: 26 yo F hx pancreatitis, epilepsy, asthma, hypothyroid, anxiety, depression, well known to this ED presents with upper abdominal pain associated with nausea. She has presented to ED multiple times with similar symptoms in the past. She has been able to tolerate PO. She is requesting test. No fever. - Physicial Exam PE: GENERAL: Awake, alert, and fully oriented, in no acute distress HEAD: No signs of trauma EYES: PERRLA, EOMI, sclera anicteric, conjunctiva clear ENT: Auricles normal inspection, hearing grossly normal, nares patent, oropharynx clear without exudates. Moist mucosa NECK: Normal ROM, supple, no lymphadenopathy, JVD, or masses LUNGS: Breath sounds equal, clear to auscultation bilaterally. No wheezes, and no crackles HEART: Regular rate and rhythm, normal S1 and S2, no murmurs, rubs or gallops ABDOMEN: Soft, mild suprapubic tenderness, normoactive bowel sounds. No guarding, no rebound. No masses EXTREMITIES: Normal range of motion, no edema. No clubbing or cyanosis. No cords, erythema, or tenderness NEUROLOGICAL: Cranial nerves II through XII grossly intact. Normal speech, normal gait SKIN: Warm, Dry, normal turgor, no rashes or lesions noted. - Medical Decision Making Patient presents with epigastric tenderness, typical of prior ED visits. Requesting test and zofran. After IV fluids and zofran she was requesting to eat lunch. Labs showed glucose 448. She refused to stay for treatment including insulin and repeat FS. PT aware of risks of leaving prior to treating the blood sugar.
[2016-10-19 12:35] LABS: BASOPHIL 0.9 % (0-2.0); EOSINOPHIL 0.6 % (0-4.5); MCH 26.8 pg (25.7-33.7); MCHC 33.3 g/dl (32.0-36.0); MEAN CELL VOLUME 80.6 fl (80-96); MEAN PLT VOLUME 8.6 fl (7.5-11.1); NEUTROPHILS 55.2 % (42.8-82.8); PLATELET COUNT 205 K/MM3 (134-434); WHITE BLOOD COUNT 7.5 K/mm3 (4.0-10.0)
[2016-10-19 13:35] LABS: HIV 1 & 2 AB NEGATIVE; HIV 1 AGp24 NEGATIVE
[2016-10-19 13:48] LABS: ALBUMIN 3.3 g/dl (3.4-5.0); ANION GAP 9 (8-16); CALCIUM 9.1 mg/dL (8.5-10.1); CO2 25 mmol/L (21-32)
[2016-10-19 13:49] LABS: GLUCOSE,RANDOM 448 mg/dL (74-106)
[2016-10-19 13:51] LABS: ALK PHOS 103 U/L (45-117); BILIRUBIN,TOTAL 0.7 mg/dL (0.2-1.0); CREATININE 0.6 mg/dL (0.55-1.02); SGPT/ALT 16 U/L (12-78); TOT PROT 7.5 g/dl (6.4-8.2)
[2016-10-19 13:54] LABS: SGOT/AST 20 U/L (15-37)
[2016-10-19] MEDS ORDERED: INSULIN REGULAR HUMAN 100 UNITS/ML *VIAL SQ ONE (14:09)
[2016-10-19 14:29] VITALS: BP 110/62; PULSE 80
== END 2016-10-19 14:32 | disposition left against medical advice (07) ==
LOC: JER 10:33
PROC: 3E033VG Introduction of Insulin into Peripheral Vein, Percutaneous Approach (ICD-10-PCS; principal; 2016-10-19)
PROC: 3E033GC Introduction of Other Therapeutic Substance into Peripheral Vein, Percutaneous Approach (ICD-10-PCS; 2016-10-19)
PROC: 3E0337Z Introduction of Electrolytic and Water Balance Substance into Peripheral Vein, Percutaneous Approach (ICD-10-PCS; 2016-10-19)
DX: R10.9 Unspecified abdominal pain (principal); E11.65 Type 2 diabetes mellitus with hyperglycemia; G40.909 Epilepsy, unspecified, not intractable, without status epilepticus; J45.909 Unspecified asthma, uncomplicated; I50.9 Heart failure, unspecified; E03.9 Hypothyroidism, unspecified; F41.9 Anxiety disorder, unspecified; F32.9 Major depressive disorder, single episode, unspecified; Z87.19 Personal history of other diseases of the digestive system; Z91.013 Allergy to seafood; Z91.018 Allergy to other foods; Z79.4 Long term (current) use of insulin
CPT/HCPCS: 36415; 80053; 83690; 84703; 85025; 87389; 96361; 96372; 96374; 99284-25

== ENCOUNTER 2016-10-26 10:40 | Emergency (ER) | payer OTHER ==
--- NOTE | 2016-10-26 10:58 | PDOC ---
Medical Decision Making - Medical Decision Making 10/26/16 10:58 Pt seen by the Advanced Practice Provider under my direct supervision Ancillary studies reviewed I agree with plan as outlined by the Advanced Practice Provider JAZ Ramon *DC/Admit/Observation/Transfer Diagnosis at time of Disposition: Anyi infection of genital region - Discharge Dispostion Disposition: HOME Condition at time of disposition: Good - Prescriptions Prescriptions: Fluconazole 150 mg PO ONCE #2 tablet Benzocaine/Resorcin/Aloe/E,A,D [Vagisil Cream] 28 gm TP 1XPACU #1 tube - Referrals Referrals: Trey Richardson MD [Primary Care Provider] - - Patient Instructions Printed Discharge Instructions: Vaginal Yeast Infection Additional Instructions: Take medications as prescribed and follow-up with your PMD and [employer] We will call you in 2-3 days if any of your cultures are positive
[2016-10-26] MEDS ORDERED: FLUCONAZOLE 50 MG TABLET PO ONE (11:09)
[2016-10-26 11:14] LABS: URINE APPEARANCE SLCLOUDY; URINE BILIRUBIN NEGATIVE (NEGATIVE); URINE BLOOD NEGATIVE (NEGATIVE); URINE COLOR STRAW; URINE GLUCOSE (UA) 3+ (NEGATIVE); URINE KETONE NEGATIVE (NEGATIVE); URINE NITRITE NEGATIVE (NEGATIVE); URINE PROTEIN NEGATIVE (NEGATIVE); URINE UROBILINOGEN NEGATIVE mg/dL (0.2-1.0)
[2016-10-26 11:15] LABS: URINE LEUK ESTERASE 3+ (NEGATIVE)
[2016-10-26 11:17] LABS: URINE MUCUS RARE; URINE RBC 6 /hpf (0-3); URINE WBC 37 /hpf (3-5)
--- NOTE | 2016-10-26 11:18 | PDOC ---
History of Present Illness - General Stated Complaint: ABD PAIN Time Seen by Provider: 10/26/16 10:48 History Source: Patient - History of Present Illness Timing/Duration: reports: getting worse Abdominal Pain Onset Location: reports: other Past History - Past Medical History Allergies/Adverse Reactions: Allergies Allergy/AdvReac Type Severity Reaction Status Date / Time mushroom Allergy Verified 10/26/16 11:55 SEAFOOD Allergy Severe ANAPHYLAXIS Uncoded 10/26/16 11:55 Home Medications: Ambulatory Orders Albuterol Sulfate Inhaler - [Ventolin HFA Inhaler -] 1 puff IH Q8H 03/22/16 Levothyroxine Sodium [Synthroid] 88 mcg PO DAILY 03/22/16 Clonazepam [Klonopin -] 0.5 mg PO BID PRN 05/23/16 Acetaminophen [Tylenol .Regular Strength -] 650 mg PO Q6H PRN #0 tablet Phenytoin Na Extended [Dilantin -] 200 mg PO BID #120 06/10/16 Topiramate [Topamax -] 25 mg PO BID #60 tablet 06/10/16 Insulin Aspart Prot/Insuln Asp [Novolog Mix 70-30 Flexpen Syrn] 50 units SQ BID 08/03/16 Acetaminophen W/ Codeine #3 [Tylenol # 3 -] 1 tab PO Q6H PRN #12 tablet MDD 4 tabs 10/04/16 Benzocaine/Resorcin/Aloe/E,A,D [Vagisil Cream] 28 gm TP 1XPACU #1 tube 10/26/16 Fluconazole 150 mg PO ONCE #2 tablet 10/26/16 Anemia: No Asthma: Yes Cancer: No Cardiac Disorders: Yes (RAPID HEARTBEAT HX) CVA: No COPD: No CHF: Yes Dementia: No Diabetes: Yes GI Disorders: Yes (h/o PANCREATITIS.) Disorders: No HTN: No (LOW BP) Hypercholesterolemia: No Liver Disease: No Psychiatric Problems: Yes (anxiety, bipolar) Suicide Attempt (Hx): No Seizures: Yes Thyroid Disease: Yes - Surgical History Abdominal Surgery: No Appendectomy: No Cardiac Surgery: No Cholecystectomy: No Lung Surgery: No Neurologic Surgery: No Orthopedic Surgery: No - Family Disease History Family Disease History: Heart Disease: Grandparents - Reproductive History (#): 1 Para: 0 Cervical CA: No Dysfunctional Uterine Bleeding: No Ectopic : No Endometrial CA: No Polycystic Ovaries: No Therapeutic (s) & number: No Tubal Ligation: No Spontaneous : 1 - Immunization History Immunization Up to Date: Yes - Psycho/Social/Smoking Cessation Hx Anxiety: Yes Suicidal Ideation: No Smoking Status: Yes Smoking History: Never smoked Have you smoked in the past 12 months: No Number of Cigarettes Smoked Daily: 0 If you are a former smoker, when did you quit?: 2011 'Breaking Loose' booklet given: 03/11/12 Hx Alcohol Use: No Drug/Substance Use Hx: No Substance Use Type: None Hx Substance Use Treatment: No Abd/GI Specific PMHX - Complaint Specific PMHX Pancreatitis: Yes Review of Systems - Review of Systems Constitutional: No: Chills, Fever ABD/GI: No: Nausea, Vomiting : Yes: Burning, Discharge. No: Frequency, Flank Pain, Hematuria *Physical Exam - Physical Exam General Appearance: Yes: Appropriately Dressed, Mild Distress HEENT: positive: Normal Voice Neck: positive: Supple Respiratory/Chest: negative: Respiratory Distress Female Pelvic Exam: positive: discharge (significant amount of thick, white, clumpy discharge w/ vulvar edema, excoriations and fissures c/w anyi, no blisters/vesicles/ulcers) Gastrointestinal/Abdominal: positive: Soft. negative: Tender Integumentary: positive: Dry, Warm Neurologic: positive: Fully Oriented, Alert, Normal Mood/Affect Medical Decision Making - Medical Decision Making 10/26/16 11:12 26-year-old female, morbidly obese, with insulin-dependent diabetes w/ HA1C of ~ 7 per pt, chronic pancreatitis and recurrent anyi vaginitis here w/ thick white vaginal discharge w/ vaginal burning and irritation x several days. States site "pepe" w/ urine contact but no true dysuria. No urinary frequency , hematuria, flank pain, nausea, vomiting, fever or chills. Denies history of STDs, but states she is currently and suspect that her might be cheating on her. Pt reports that her BS at home have been good See exam Complicated anyi vaginitis in pt w/ IDDM and morbid obesity Vulvar erythema w/ fissures and copious amount of thick white adherent discharge on exam, pt unable to tolerate speculum exam 2/2 pain, no blisters/ vesicles or ulcers to suspect herpes at this time FS -STD cxs sent -will tx w/ multiple doses of fluconazole given severity, 1st dose given in ED -refer to PMD for better management of DM and [facility] 10/26/16 12:15 UA w/ 3+ LE, no nit. Will hold off on abx as pt has no true dysuria, and wait for ucx. Of note, pt's prior cxs have been neg for growth. Pt stable for discharge at this time. Reason to return d/w pt *DC/Admit/Observation/Transfer Diagnosis at time of Disposition: Anyi infection of genital region - Discharge Dispostion Disposition: HOME Condition at time of disposition: Good - Prescriptions Prescriptions: Fluconazole 150 mg PO ONCE #2 tablet Benzocaine/Resorcin/Aloe/E,A,D [Vagisil Cream] 28 gm TP 1XPACU #1 tube - Referrals Referrals: Trey Richardson MD [Primary Care Provider] - - Patient Instructions Printed Discharge Instructions: Vaginal Yeast Infection Additional Instructions: Take medications as prescribed and follow-up with your PMD and [facility] We will call you in 2-3 days if any of your cultures are positive
[2016-10-26 11:54] VITALS: BP 111/65; PULSE 83; TEMP 98; BMI 30.9
== END 2016-10-26 12:25 | disposition home or self-care (01) ==
LOC: JER 10:40
DX: B37.3 Candidiasis of vulva and vagina (principal); E11.9 Type 2 diabetes mellitus without complications; E66.01 Morbid (severe) obesity due to excess calories; Z68.30 Body mass index [BMI] 30.0-30.9, adult; K86.1 Other chronic pancreatitis; J45.909 Unspecified asthma, uncomplicated; I50.9 Heart failure, unspecified; E07.9 Disorder of thyroid, unspecified; F41.9 Anxiety disorder, unspecified; F31.9 Bipolar disorder, unspecified
CPT/HCPCS: 36415; 81003; 81015; 84703; 87070; 87086; 87205; 87491; 87591; 99282-25

== ENCOUNTER 2016-11-17 18:47 | Emergency (ER) | payer OTHER ==
[2016-11-17 18:53] VITALS: BP 117/71; PULSE 90; TEMP 97.3; BMI 31.6
--- NOTE | 2016-11-17 19:15 | PDOC ---
History of Present Illness - General Chief Complaint: Pain Stated Complaint: ABDOMINAL PAIN Time Seen by Provider: 11/17/16 19:13 History Source: Patient Exam Limitations: No Limitations - History of Present Illness Travel History: No Initial Comments: 11/17/16 23:53 26-year-old female with a history of presents to the emergency department requesting for an ultrasound. Patient states she took a home exams which were positive yesterday. Patient's last menses: 4 weeks ago. Patient denies any fever, chills, nausea/vomiting, chest pain, shortness of breath, abdominal pains, flank pains, urinary symptoms. Timing/Duration: reports: intermittent Past History - Past Medical History Allergies/Adverse Reactions: Allergies Allergy/AdvReac Type Severity Reaction Status Date / Time mushroom Allergy Verified 11/17/16 18:51 SEAFOOD Allergy Severe ANAPHYLAXIS Uncoded 11/17/16 18:51 Home Medications: Ambulatory Orders Albuterol Sulfate Inhaler - [Ventolin HFA Inhaler -] 1 puff IH Q8H 03/22/16 Levothyroxine Sodium [Synthroid] 88 mcg PO DAILY 03/22/16 Clonazepam [Klonopin -] 0.5 mg PO BID PRN 05/23/16 Acetaminophen [Tylenol .Regular Strength -] 650 mg PO Q6H PRN #0 tablet Phenytoin Na Extended [Dilantin -] 200 mg PO BID #120 06/10/16 Topiramate [Topamax -] 25 mg PO BID #60 tablet 06/10/16 Insulin Aspart Prot/Insuln Asp [Novolog Mix 70-30 Flexpen Syrn] 50 units SQ BID 08/03/16 Acetaminophen W/ Codeine #3 [Tylenol # 3 -] 1 tab PO Q6H PRN #12 tablet MDD 4 tabs 10/04/16 Benzocaine/Resorcin/Aloe/E,A,D [Vagisil Cream] 28 gm TP 1XPACU #1 tube 10/26/16 Fluconazole 150 mg PO ONCE #2 tablet 10/26/16 Anemia: No Asthma: Yes Cancer: No Cardiac Disorders: Yes (RAPID HEARTBEAT HX) CVA: No COPD: No CHF: Yes Dementia: No Diabetes: Yes GI Disorders: Yes (h/o PANCREATITIS.) Disorders: No HTN: No (LOW BP) Hypercholesterolemia: No Liver Disease: No Psychiatric Problems: Yes (anxiety, bipolar) Suicide Attempt (Hx): No Seizures: Yes Thyroid Disease: Yes - Surgical History Abdominal Surgery: No Appendectomy: No Cardiac Surgery: No Cholecystectomy: No Lung Surgery: No Neurologic Surgery: No Orthopedic Surgery: No - Family Disease History Family Disease History: Heart Disease: Grandparents - Reproductive History (#): 1 Para: 0 Cervical CA: No Dysfunctional Uterine Bleeding: No Ectopic : No Endometrial CA: No Polycystic Ovaries: No Therapeutic (s) & number: No Tubal Ligation: No Spontaneous : 1 - Immunization History Immunization Up to Date: Yes - Psycho/Social/Smoking Cessation Hx Anxiety: Yes Suicidal Ideation: No Smoking Status: Yes Smoking History: Never smoked Have you smoked in the past 12 months: No Number of Cigarettes Smoked Daily: 0 If you are a former smoker, when did you quit?: 2011 Information on smoking cessation initiated: No 'Breaking Loose' booklet given: 03/11/12 Hx Alcohol Use: No Drug/Substance Use Hx: No Substance Use Type: None Hx Substance Use Treatment: No Abd/GI Specific PMHX - Complaint Specific PMHX Pancreatitis: Yes Review of Systems - Review of Systems Able to Perform ROS?: Yes Comments:: 11/17/16 23:55 CONSTITUTIONAL: Absent: fever, chills, diaphoresis, generalized weakness, malaise, loss of appetite HEENT: Absent: rhinorrhea, nasal congestion, throat pain, throat swelling, difficulty swallowing, mouth swelling, ear pain, eye pain, visual Changes CARDIOVASCULAR: Absent: chest pain, loss of consciousness, palpitations, irregular heart rate, peripheral edema RESPIRATORY: Absent: cough, shortness of breath, dyspnea with exertion, orthopnea, wheezing, stridor, hemoptysis GASTROINTESTINAL: Absent: abdominal pain, abdominal distension, nausea, vomiting, diarrhea, constipation, melena, hematochezia GENITOURINARY: Absent: dysuria, frequency, urgency, hesitancy, hematuria, flank pain, genital pain MUSCULOSKELETAL: Absent: myalgia, arthralgia, joint swelling SKIN: Absent: rash, itching, pallor HEMATOLOGIC/IMMUNOLOGIC: Absent: easy bleeding, easy bruising, lymphadenopathy, frequent infections ENDOCRINE: Absent: unexplained weight gain, unexplained weight loss, heat intolerance, cold intolerance NEUROLOGIC: Absent: headache, focal weakness or paresthesias, dizziness, unsteady gait, seizure, mental status changes, bladder or bowel incontinence PSYCHIATRIC: Absent: anxiety, depression, suicidal or homicidal ideation, hallucinations. Is the patient limited [place]uan proficient: No *Physical Exam - Vital Signs Last Vital Signs Temp Pulse Resp BP Pulse Ox 97.3 F L 90 18 117/71 97 11/17/16 18:52 11/17/16 18:52 11/17/16 18:52 11/17/16 18:52 11/17/16 18:52 - Physical Exam Comments: 11/17/16 23:55 GENERAL: Well developed, well nourished. Awake and alert. No acute distress. HEENT: Normocephalic, atraumatic. PERRLA, EOMI. No conjunctival pallor. Sclera are non- icteric. Moist mucous membranes. Oropharynx is clear. NECK: Supple. Full ROM. No JVD. Carotid pulses 2+ and symmetric, without bruits. No thyromegaly. No lymphadenopathy. CARDIOVASCULAR: Regular rate and rhythm. No murmurs, rubs, or gallops. Distal pulses are 2+ and symmetric. PULMONARY: No evidence of respiratory distress. Lungs clear to auscultation bilaterally. No wheezing, rales or rhonchi. ABDOMINAL: Soft. Non-tender. Non-distended. No rebound or guarding. No organomegaly. Normoactive bowel sounds. MUSCULOSKELETAL Normal range of motion at all joints. No bony deformities or tenderness. No CVA tenderness. EXTREMITIES: No cyanosis. No clubbing. No edema. No calf tenderness. SKIN: Warm and dry. Normal capillary refill. No rashes. No jaundice. NEUROLOGICAL: Alert, awake, appropriate. Cranial nerves 2-12 intact. No deficits to light touch and temperature in face, upper extremities and lower extremities. No motor deficits in the in face, upper extremities and lower extremities. Normoreflexic in the upper and lower extremities. Normal speech. Toes are down- going bilaterally. Gait is normal without ataxia. PSYCHIATRIC: Cooperative. Good eye contact. Appropriate mood and affect. ED Treatment Course - LABORATORY CBC & Chemistry Diagram: 11/17/16 19:21 11/17/16 19:21 Progress Note - Progress Note Progress Note: Patient was informed that her glucose was 395 and she needs insulin/IV fluids. Patient adamantly refuses any treatment and wishes to go home and use her own insulin. Patient signed an AMA form *DC/Admit/Observation/Transfer Diagnosis at time of Disposition: Abdominal pain, AMA - Signed out against medical advice - Discharge Dispostion Disposition: AGAINST MEDICAL ADVICE Condition at time of disposition: Fair - Referrals Referrals: Trey Richardson MD [Primary Care Provider] - - Patient Instructions Printed Discharge Instructions: DI for Abdominal Pain-Adult
--- NOTE | 2016-11-17 19:42 | PDOC ---
*Physical Exam - Vital Signs Last Vital Signs Temp Pulse Resp BP Pulse Ox 97.3 F L 90 18 117/71 97 11/17/16 18:52 11/17/16 18:52 11/17/16 18:52 11/17/16 18:52 11/17/16 18:52 ED Treatment Course - LABORATORY CBC & Chemistry Diagram: 11/17/16 19:21 11/17/16 19:21 Medical Decision Making - Medical Decision Making 11/17/16 19:41 This is a 26 yo F well known to the ER h/o IDDM, pancreatitis, seizure disorder, asthma, hyperthryoidism, bipolar disorder She presents to the ER with abdominal pain Pt states that she has a 1st trimester Pt seen by Midlevel Provider under my direct supervision Pt interviewed and examined Ancillary studies reviewed I agree with plan as outlined by Midlevel Provider 11/17/16 19:42 11/17/16 22:01 Laboratory Tests 11/17/16 19:21 Beta HCG, Quant < 1.0 Upon receiving these labs, pt decided to leave AMA 11/17/16 22:07 *DC/Admit/Observation/Transfer Diagnosis at time of Disposition: Abdominal pain, AMA - Signed out against medical advice - Discharge Dispostion Disposition: AGAINST MEDICAL ADVICE Condition at time of disposition: Fair Admit: No - Referrals Referrals: Trey Richardson MD [Primary Care Provider] - - Patient Instructions Printed Discharge Instructions: DI for Abdominal Pain-Adult
[2016-11-17 20:46] LABS: BASOPHIL 0.7 % (0-2.0); EOSINOPHIL 1.3 % (0-4.5); MCH 27.5 pg (25.7-33.7); MCHC 33.7 g/dl (32.0-36.0); MEAN CELL VOLUME 81.6 fl (80-96); MEAN PLT VOLUME 8.6 fl (7.5-11.1); NEUTROPHILS 54.5 % (42.8-82.8); PLATELET COUNT 202 K/MM3 (134-434); RDW 13.8 % (11.6-15.6); WHITE BLOOD COUNT 8.6 K/mm3 (4.0-10.0)
[2016-11-17 20:51] LABS: URINE APPEARANCE CLEAR; URINE BILIRUBIN NEGATIVE (NEGATIVE); URINE BLOOD NEGATIVE (NEGATIVE); URINE COLOR STRAW; URINE GLUCOSE (UA) 3+ (NEGATIVE); URINE KETONE 1+ (NEGATIVE); URINE LEUK ESTERASE NEGATIVE (NEGATIVE); URINE NITRITE NEGATIVE (NEGATIVE); URINE PROTEIN NEGATIVE (NEGATIVE); URINE UROBILINOGEN NEGATIVE mg/dL (0.2-1.0)
[2016-11-17 21:09] LABS: ALBUMIN 3.5 g/dl (3.4-5.0); ANION GAP 9 (8-16); BILIRUBIN,TOTAL 0.4 mg/dL (0.2-1.0); CALCIUM 9.3 mg/dL (8.5-10.1); CO2 27 mmol/L (21-32); CREATININE 0.8 mg/dL (0.55-1.02); SGOT/AST 12 U/L (15-37); SGPT/ALT 21 U/L (12-78); TOT PROT 7.7 g/dl (6.4-8.2)
[2016-11-17 21:11] LABS: ALK PHOS 131 U/L (45-117)
[2016-11-17 21:15] LABS: GLUCOSE,RANDOM 395 mg/dL (74-106)
[2016-11-17] MEDS ORDERED: SODIUM CHLORIDE 1,000 ML IV STA (21:21)
[2016-11-17] MEDS ORDERED: INSULIN REGULAR HUMAN 100 UNITS/ML *VIAL IVPUSH ONE (21:21)
[2016-11-17] MEDS ORDERED: IBUPROFEN 400 MG TABLET (FP) PO ONE (21:22)
[2016-11-17] MEDS ORDERED: AMOXICILLIN 500 MG CAPSULE (FP) PO ONE (21:22)
== END 2016-11-17 22:09 | disposition left against medical advice (07) ==
LOC: JER 18:47
DX: E10.65 Type 1 diabetes mellitus with hyperglycemia (principal); Z79.4 Long term (current) use of insulin; G40.909 Epilepsy, unspecified, not intractable, without status epilepticus; K85.90 Acute pancreatitis without necrosis or infection, unspecified; Z86.69 Personal history of other diseases of the nervous system and sense organs
CPT/HCPCS: 36415; 80053; 81003; 84702; 85025; 86850; 86900; 86901; 99282-25

== ENCOUNTER 2016-11-20 17:00 | Emergency (ER) | payer OTHER ==
[2016-11-20 17:05] VITALS: BP 109/55; PULSE 93; TEMP 98; BMI 31.6
== END 2016-11-20 19:57 | disposition left against medical advice (07) ==
LOC: JER 17:00
DX: Z53.21 Procedure and treatment not carried out due to patient leaving prior to being seen by health care provider (principal)
CPT/HCPCS: 99281-25

== ENCOUNTER 2016-12-22 14:21 | Emergency (ER) | payer OTHER ==
[2016-12-22 14:27] VITALS: TEMP 98.2; BMI 25.8
--- NOTE | 2016-12-22 14:59 | PDOC ---
History of Present Illness - General Chief Complaint: Pain, Acute Stated Complaint: ABDOMINAL PAIN Time Seen by Provider: 12/22/16 14:29 History Source: Patient Exam Limitations: No Limitations - History of Present Illness Initial Comments: 12/22/16 14:59 Koki Iyer is a 26 year old female well known to the service with a significant past medical history of Epilepsy, IDDM, Pancreatitis, Asthma, CHF, hypothyroid, Anxiety, and Depression who presents to the emergency department with a 8 hour history of nausea and epigastric stomach pain, and diarrhea. Patient states this feels like her chronic pancreatitis and wants to be admitted to the hospital. She would also like some warm food. The patient denies chest pain, shortness of breath, headache and dizziness. Denies fever, chills, and constipation. Denies dysuria, frequency, urgency and hematuria. 12/22/16 15:44 Past History - Past Medical History Allergies/Adverse Reactions: Allergies Allergy/AdvReac Type Severity Reaction Status Date / Time mushroom Allergy Verified 12/22/16 14:42 No Known Drug Allergies Allergy Verified 12/22/16 14:42 SEAFOOD Allergy Severe ANAPHYLAXIS Uncoded 12/22/16 14:42 Home Medications: Ambulatory Orders Albuterol Sulfate Inhaler - [Ventolin HFA Inhaler -] 1 puff IH Q8H 03/22/16 Levothyroxine Sodium [Synthroid] 88 mcg PO DAILY 03/22/16 Clonazepam [Klonopin -] 0.5 mg PO BID PRN 05/23/16 Acetaminophen [Tylenol .Regular Strength -] 650 mg PO Q6H PRN #0 tablet Phenytoin Na Extended [Dilantin -] 200 mg PO BID #120 06/10/16 Topiramate [Topamax -] 25 mg PO BID #60 tablet 06/10/16 Insulin Aspart Prot/Insuln Asp [Novolog Mix 70-30 Flexpen Syrn] 50 units SQ BID 08/03/16 Fluconazole 150 mg PO ONCE #2 tablet 10/26/16 Anemia: No Asthma: Yes Cancer: No Cardiac Disorders: Yes (RAPID HEARTBEAT HX) CVA: No COPD: No CHF: Yes Dementia: No Diabetes: Yes GI Disorders: Yes (h/o PANCREATITIS.) Disorders: No HTN: No (LOW BP) Hypercholesterolemia: No Liver Disease: No Psychiatric Problems: Yes (anxiety, bipolar) Seizures: Yes Thyroid Disease: Yes - Surgical History Abdominal Surgery: No Appendectomy: No Cardiac Surgery: No Cholecystectomy: No Lung Surgery: No Neurologic Surgery: No Orthopedic Surgery: No - Family Disease History Family Disease History: Heart Disease: Grandparents - Reproductive History (#): 1 Para: 0 Cervical CA: No Dysfunctional Uterine Bleeding: No Ectopic : No Endometrial CA: No Polycystic Ovaries: No Therapeutic (s) & number: No Tubal Ligation: No Spontaneous : 1 - Immunization History Immunization Up to Date: Yes - Suicide/Smoking/Psychosocial Hx Smoking Status: Yes Smoking History: Never smoked Have you smoked in the past 12 months: No Number of Cigarettes Smoked Daily: 0 If you are a former smoker, when did you quit?: 2011 Information on smoking cessation initiated: No 'Breaking Loose' booklet given: 03/11/12 Hx Alcohol Use: No Drug/Substance Use Hx: No Substance Use Type: None Hx Substance Use Treatment: No Review of Systems - Review of Systems Able to Perform ROS?: Yes Comments:: 12/22/16 14:59 GENERAL/CONSTITUTIONAL: No fever or chills. No weakness. HEAD, EYES, EARS, NOSE AND THROAT: No change in vision. No ear pain or discharge. No sore throat. CARDIOVASCULAR: No chest pain or shortness of breath RESPIRATORY: No cough, wheezing, or hemoptysis. GASTROINTESTINAL: +Nausea, Diarrhea and epigastric abdominal pain. No constipation. GENITOURINARY: No dysuria, frequency, or change in urination. MUSCULOSKELETAL: No joint or muscle swelling or pain. No neck or back pain. SKIN: No rash NEUROLOGIC: No headache, vertigo, loss of consciousness, or change in strength/ sensation. ENDOCRINE: No increased thirst. No abnormal weight change HEMATOLOGIC/LYMPHATIC: No anemia, easy bleeding, or history of blood clots. ALLERGIC/IMMUNOLOGIC: No hives or skin allergy. *Physical Exam - Vital Signs Last Vital Signs Temp Pulse Resp BP Pulse Ox 98.2 F 99 H 19 111/73 99 12/22/16 14:25 12/22/16 14:25 12/22/16 14:25 12/22/16 14:25 12/22/16 14:25 - Physical Exam Comments: 12/22/16 15:00 GENERAL: Awake, alert, and fully oriented, in no acute distress HEAD: No signs of trauma, normocephalic, atraumatic EYES: PERRLA, EOMI, sclera anicteric, conjunctiva clear ENT: Auricles normal inspection, hearing grossly normal, nares patent, oropharynx clear without exudates. Moist mucosa NECK: Normal ROM, supple, no lymphadenopathy, JVD, or masses LUNGS: No distress, speaks full sentences, clear to auscultation bilaterally HEART: Regular rate and rhythm, normal S1 and S2, no murmurs, rubs or gallops, peripheral pulses normal and equal bilaterally. ABDOMEN: No abdominal tenderness. Soft, normoactive bowel sounds. No guarding, no rebound. No masses EXTREMITIES: Normal inspection, Normal range of motion, no edema. No clubbing or cyanosis. NEUROLOGICAL: Cranial nerves II through XII grossly intact. Normal speech, normal gait, no focal sensorimotor deficits SKIN: Warm, Dry, normal turgor, no rashes or lesions noted. ED Treatment Course - LABORATORY CBC & Chemistry Diagram: 12/22/16 15:15 12/22/16 15:15 Medical Decision Making - Medical Decision Making 12/22/16 15:44 Koki Iyer is a 26 year old female well known to the service with a significant past medical history of Epilepsy, IDDM, Pancreatitis, Asthma, CHF, hypothyroid, Anxiety, and Depression who presents to the emergency department with a 8 hour history of nausea and epigastric stomach pain, and diarrhea. Given hx and pe, will order CBC, CMP, VBG, acetone level, give IVF, Lipase 12/22/16 16:11 CBC- unremarkable CMP- glucose of 447 Lipase-1406 12/22/16 18:07 UA-3+ glucose, Acetone negative Patient tolerated some food and water. Patient waiting for hot food. Patient is stable for discharge *DC/Admit/Observation/Transfer Diagnosis at time of Disposition: Chronic pancreatitis Qualifiers: Pancreatitis type: unspecified pancreatitis type Qualified Code(s): K86.1 - Other chronic pancreatitis; K86.1 - Other chronic pancreatitis; K86.1 - Other chronic pancreatitis; K86.1 - Other chronic pancreatitis - Discharge Dispostion Disposition: HOME Condition at time of disposition: Stable - Referrals Referrals: Trey Richardson MD [Primary Care Provider] - - Patient Instructions Printed Discharge Instructions: DI for Pancreatitis Additional Instructions: Please follow up with your primary care doctor. If you have chest pain, shortness of breath, or any new/worsening symptoms please come back to the hospital immediately.
[2016-12-22] MEDS ORDERED: SODIUM CHLORIDE 1,000 ML IV STA ×2 (15:06→15:58)
[2016-12-22 15:22] LABS: BASOPHIL 0.6 % (0-2.0); EOSINOPHIL 0.7 % (0-4.5); MCH 28.1 pg (25.7-33.7); MCHC 33.9 g/dl (32.0-36.0); MEAN CELL VOLUME 82.8 fl (80-96); MEAN PLT VOLUME 8.5 fl (7.5-11.1); NEUTROPHILS 57.7 % (42.8-82.8); PLATELET COUNT 187 K/MM3 (134-434); RDW 12.9 % (11.6-15.6); WHITE BLOOD COUNT 7.5 K/mm3 (4.0-10.0)
[2016-12-22 15:52] LABS: ANION GAP 12 (8-16); BILIRUBIN,TOTAL 0.4 mg/dL (0.2-1.0); CALCIUM 8.9 mg/dL (8.5-10.1); CO2 23 mmol/L (21-32); CREATININE 0.7 mg/dL (0.55-1.02); SGOT/AST 6 U/L (15-37); SGPT/ALT 16 U/L (12-78); TOT PROT 6.9 g/dl (6.4-8.2)
[2016-12-22 15:53] LABS: ALK PHOS 102 U/L (45-117)
[2016-12-22 15:56] LABS: GLUCOSE,RANDOM 447 mg/dL (74-106)
[2016-12-22] MEDS ORDERED: Insulin (LOG) Aspart 100 UNITS/ML VIAL SQ ONE (15:56)
[2016-12-22] MEDS ORDERED: ONDANSETRON 4 MG/2 ML VIAL IVPUSH ONE (16:04)
--- NOTE | 2016-12-22 16:24 | PDOC ---
Attending Attestation - Resident Resident Name: Alia Houl - ED Attending Attestation I have performed the following: I have examined & evaluated the patient, The case was reviewed & discussed with the resident, I agree w/resident's findings & plan, Exceptions are as noted - HPI HPI: 12/22/16 16:22 26 F with Epilepsy, IDDM, Pancreatitis, Asthma, CHF, hypothyroid, Anxiety, and Depression who presents to the emergency department with nausea and epigastric stomach pain, and diarrhea. Patient states that her symptoms started earlier today and feel like her chronic pancreatitis. Pt denies F/C. Denies noncompliance with her diabetes medications. - Physicial Exam PE: 12/22/16 16:23 "GENERAL: Awake, alert, and fully oriented, in no acute distress HEAD: No signs of trauma EYES: PERRLA, EOMI, sclera anicteric, conjunctiva clear ENT: Auricles normal inspection, hearing grossly normal, nares patent, oropharynx clear without exudates. Moist mucosa NECK: Nontender, no stepoffs, Normal ROM, supple, no lymphadenopathy, JVD, or masses LUNGS: Breath sounds equal, clear to auscultation bilaterally. No wheezes, and no crackles HEART: Regular rate and rhythm, normal S1 and S2, no murmurs, rubs or gallops ABDOMEN: +epigastric TTP, no rebound/guarding EXTREMITIES: Normal range of motion, no edema. No clubbing or cyanosis. No cords, erythema, or tenderness NEUROLOGICAL: Cranial nerves II through XII intact. 5/5 strength and sensation in all extremities, Normal speech, normal gait SKIN: Warm, Dry, normal turgor, no rashes or lesions noted. " - Medical Decision Making 12/22/16 16:23 26 F with chronic pancreatitis, with epigastric pain + N/V. Likely pancreatitis flare. - Labs - IVF, zofran 12/22/16 18:00 Pt's labs consistent with pancreatitis with elevated lipase and glucose. Pt given 2L NS and 10u subq insulin for hyperglycemia. No evidence of DKA. Negative ketones, AG 12. Repeat fingerstick in 200s. Pt now tolerating PO, has eaten sandwich and fluids with no vomiting. Repeat abdominal exam benign. Pt well appearing, tolerating PO, with benign exam and normal vitals. Clinically stable for DC.
[2016-12-22 18:04] LABS: URINE APPEARANCE CLEAR; URINE BILIRUBIN NEGATIVE (NEGATIVE); URINE BLOOD NEGATIVE (NEGATIVE); URINE COLOR STRAW; URINE GLUCOSE (UA) 3+ (NEGATIVE); URINE KETONE TRACE (NEGATIVE); URINE NITRITE NEGATIVE (NEGATIVE); URINE PROTEIN NEGATIVE (NEGATIVE); URINE UROBILINOGEN NEGATIVE mg/dL (0.2-1.0)
[2016-12-22 18:26] LABS: VENOUS PH 7.35 (7.32-7.42)
[2016-12-22 18:27] LABS: VENOUS BLOOD GAS HCO3 22.4 meq/L (19-25)
[2016-12-22 18:51] VITALS: BP 116/74; PULSE 80
[2016-12-22 23:11] LABS: URINE LEUK ESTERASE Negative (NEGATIVE)
== END 2016-12-22 18:55 | disposition home or self-care (01) ==
LOC: JER 14:21
PROC: 3E013VG Introduction of Insulin into Subcutaneous Tissue, Percutaneous Approach (ICD-10-PCS; principal; 2016-12-22)
PROC: 3E033GC Introduction of Other Therapeutic Substance into Peripheral Vein, Percutaneous Approach (ICD-10-PCS; 2016-12-22)
PROC: 3E0337Z Introduction of Electrolytic and Water Balance Substance into Peripheral Vein, Percutaneous Approach (ICD-10-PCS; 2016-12-22)
DX: K86.1 Other chronic pancreatitis (principal); E11.9 Type 2 diabetes mellitus without complications; J45.909 Unspecified asthma, uncomplicated; E03.9 Hypothyroidism, unspecified; F41.9 Anxiety disorder, unspecified; G40.909 Epilepsy, unspecified, not intractable, without status epilepticus; I50.9 Heart failure, unspecified
CPT/HCPCS: 36415; 80053; 81003; 82009; 82803; 83690; 84703; 85025; 96361; 96372; 96374; 99283-25

== ENCOUNTER 2017-02-16 18:16 | Inpatient (IN) | payer OTHER ==
--- NOTE | 2017-02-16 18:21 | PDOC ---
History of Present Illness - General History Source: Patient Exam Limitations: No Limitations - History of Present Illness Initial Comments: 02/16/17 18:47 The patient is a 26-year-old female well known to the service with a significant past medical history of epilepsy, IDDM, pancreatitis, asthma, CHF, hypothyroidism, anxiety, and depression, who presents to the emergency department with chest pain and abdominal pain today. She reports she developed chest pain after being accidentally kicked in the chest while play fighting with her . She also complains of epigastric pain which she attributes to her chronic pancreatitis, and would like to have that checked out. The patient denies shortness of breath, headache and dizziness. The patient denies fever, chills, cough, nausea, vomit, diarrhea and constipation. The patient denies dysuria, frequency, urgency and hematuria. LMP: 02/14/17 Allergies: mushrooms, seafood Social History: No toxic habits reported PCP: Dr. Richardson and Dr. Xander Bee (manages her diabetes) <Jackeline Small - Last Filed: 02/16/17 18:47> <Lexi Grewal - Last Filed: 02/16/17 18:50> <Peyton Carroll - Last Filed: 02/16/17 22:25> <Landry Dean - Last Filed: 02/16/17 23:53> - General Chief Complaint: Injury Stated Complaint: CHEST PAIN Time Seen by Provider: 02/16/17 18:21 Past History <Jackeline Small - Last Filed: 02/16/17 18:47> - Past Medical History Anemia: No Asthma: Yes Cancer: No Cardiac Disorders: Yes (RAPID HEARTBEAT HX) CVA: No COPD: No CHF: Yes Dementia: No Diabetes: Yes GI Disorders: Yes (h/o PANCREATITIS.) Disorders: No HTN: No (LOW BP) Hypercholesterolemia: No Liver Disease: No Psychiatric Problems: Yes (anxiety, bipolar) Seizures: Yes Thyroid Disease: Yes - Surgical History Abdominal Surgery: No Appendectomy: No Cardiac Surgery: No Cholecystectomy: No Lung Surgery: No Neurologic Surgery: No Orthopedic Surgery: No - Family Disease History Family Disease History: Heart Disease: Grandparents - Reproductive History (#): 1 Para: 0 Cervical CA: No Dysfunctional Uterine Bleeding: No Ectopic : No Endometrial CA: No Polycystic Ovaries: No Therapeutic (s) & number: No Tubal Ligation: No Spontaneous : 1 - Immunization History Immunization Up to Date: Yes - Suicide/Smoking/Psychosocial Hx Smoking Status: Yes Smoking History: Never smoked Have you smoked in the past 12 months: No Number of Cigarettes Smoked Daily: 0 If you are a former smoker, when did you quit?: 2011 'Breaking Loose' booklet given: 03/11/12 Hx Alcohol Use: No Drug/Substance Use Hx: No Substance Use Type: None Hx Substance Use Treatment: No <Lexi Grewal - Last Filed: 02/16/17 18:50> <Peyton Carroll - Last Filed: 02/16/17 22:25> <Landry Dean - Last Filed: 02/16/17 23:53> - Past Medical History Allergies/Adverse Reactions: Allergies Allergy/AdvReac Type Severity Reaction Status Date / Time mushroom Allergy Verified 02/16/17 18:22 No Known Drug Allergies Allergy Verified 02/16/17 18:22 SEAFOOD Allergy Severe ANAPHYLAXIS Uncoded 02/16/17 18:22 Home Medications: Ambulatory Orders Albuterol Sulfate Inhaler - [Ventolin HFA Inhaler -] 1 puff IH Q8H 03/22/16 Levothyroxine Sodium [Synthroid] 88 mcg PO DAILY 03/22/16 Clonazepam [Klonopin -] 0.5 mg PO BID PRN 05/23/16 Acetaminophen [Tylenol .Regular Strength -] 650 mg PO Q6H PRN #0 tablet Phenytoin Na Extended [Dilantin -] 200 mg PO BID #120 06/10/16 Topiramate [Topamax -] 25 mg PO BID #60 tablet 06/10/16 Insulin Aspart Prot/Insuln Asp [Novolog Mix 70-30 Flexpen Syrn] 50 units SQ BID 08/03/16 Fluconazole 150 mg PO ONCE #2 tablet 10/26/16 Erythromycin 0.5% Eye Ointment [Erythromycin 0.5% Eye Ointment -] 1 applic AD QID #1 tube 01/18/17 Ketotifen Fumarate [Allergy Eye Drops] 1 drop OD BID #1 bottle 01/25/17 Review of Systems - Review of Systems Able to Perform ROS?: Yes Comments:: 02/16/17 18:48 CONSTITUTIONAL: Pt denies fever, chills, weakness HEENT: denies visual changes, sore throat, ear pain RESPIRATORY: denies cough, SOB, hemoptysis CARDIOVASCULAR: (+) Chest pain. denies palpitations, lightheadedness, leg swelling GI: (+) abdominal pain. denies nausea, vomiting, diarrhea, constipation, blood per rectum, melena : denies dysuria, frequency, discharge MUSCULOSKELETAL: denies back pain, joint swelling, myalgias SKIN: denies bruising, erythema, rash NEUROLOGICAL: denies headache, numbness, focal weakness, tingling, ataxia, weakness HEMATOLOGIC: denies anemia, easy bruising, easy bleeding <Small,Jackeline - Last Filed: 02/16/17 18:47> *Physical Exam - Vital Signs Last Vital Signs Temp Pulse Resp BP Pulse Ox 98.6 F 83 18 113/74 98 02/16/17 18:18 02/16/17 18:18 02/16/17 18:18 02/16/17 18:18 02/16/17 18:18 - Physical Exam Comments: 02/16/17 18:48 GENERAL: The patient is awake, alert, and fully oriented, Nontoxic - in no acute distress. HEAD: Normocephalic, atraumatic. EYES: extraocular movements intact, sclera anicteric, conjunctiva clear. ENT: Normal voice, moist mucous membranes. NECK: Normal range of motion, supple without lymphadenopathy, JVD, or masses. LUNGS: Breath sounds equal, clear to auscultation bilaterally. No wheezes, no crackles, no rales. HEART: Regular rate and rhythm, normal S1 and S2 without murmur, rub or gallop. ABDOMEN: Soft, nontender, normoactive bowel sounds. No guarding, no rebound. No masses. EXTREMITIES: Normal range of motion, no edema. No clubbing or cyanosis. No cords , erythema, or tenderness. NEUROLOGICAL: Fully Oriented, Alert, Normal Mood/Affect, Motor Strength 5/5. No facial asymmetry, Normal speech SKIN: Warm, Dry, normal turgor, no rashes or lesions noted. <Small,Jackeline - Last Filed: 02/16/17 18:47> - Vital Signs Last Vital Signs Temp Pulse Resp BP Pulse Ox 98.6 F 83 18 113/74 98 02/16/17 18:18 02/16/17 18:18 02/16/17 18:18 02/16/17 18:18 02/16/17 18:18 <Peyton Carroll - Last Filed: 02/16/17 22:25> - Vital Signs Last Vital Signs Temp Pulse Resp BP Pulse Ox 98.6 F 83 18 113/74 98 02/16/17 18:18 02/16/17 18:18 02/16/17 18:18 02/16/17 18:18 02/16/17 18:18 <Landry Dean - Last Filed: 02/16/17 23:53> Heart Score/ECG Review - History History: Slightly suspicious - Electrocardiogram EKG: Non specific repolarization disturbance - Age Age: </= 45 - Risk Factors Risk Factors Heart Score: Yes Hx Diabetes, Yes Hx Obesity Based on the list above the patient has:: 1-2 risk factors - ECG Intrepretation Rhythm: Regular Rhythm (nsr at 88 nl axis) <Lexi Grewal - Last Filed: 02/16/17 18:50> ED Treatment Course - LABORATORY CBC & Chemistry Diagram: 02/16/17 19:10 02/16/17 19:10 - ADDITIONAL ORDERS Additional order review: Laboratory Results 02/16/17 02/16/17 02/16/17 19:10 19:10 19:10 Sodium Potassium Chloride Carbon Dioxide Anion Gap BUN Creatinine Creat Clearance w eGFR Random Glucose Calcium Total Bilirubin AST ALT Alkaline Phosphatase Creatine Kinase Troponin I Total Protein Albumin Lipase Cancelled Urine Color Lt. yellow Urine Appearance Clear Urine pH 6.5 Ur Specific [place] <= 1.005 Urine Protein Negative Urine Glucose (UA) 3+ H Urine Ketones Negative Urine Blood 2+ H Urine Nitrite Negative Urine Bilirubin Negative Urine Urobilinogen 0.2 Urine WBC (Auto) 11 Urine RBC (Auto) 9 Ur Epithelial Cells Rare Urine Bacteria Rare Urine HCG, Qual Negative 02/16/17 02/16/17 19:10 19:10 Sodium 133 L Potassium 4.1 Chloride 99 Carbon Dioxide 26 Anion Gap 8 BUN 16 Creatinine 0.8 Creat Clearance w eGFR > 60 Random Glucose 512 H* Calcium 9.3 Total Bilirubin 0.4 AST 8 L D ALT 18 Alkaline Phosphatase 133 H D Creatine Kinase Cancelled 37 Troponin I Cancelled < 0.02 Total Protein 8.1 Albumin 3.4 Lipase 961 H Urine Color Urine Appearance Urine pH Ur Specific [place] Urine Protein Urine Glucose (UA) Urine Ketones Urine Blood Urine Nitrite Urine Bilirubin Urine Urobilinogen Urine WBC (Auto) Urine RBC (Auto) Ur Epithelial Cells Urine Bacteria Urine HCG, Qual 02/16/17 19:10 RBC 4.89 MCV 84.0 MCHC 34.4 RDW 13.3 MPV 8.5 Neutrophils % 58.9 Lymphocytes % 33.4 Monocytes % 6.2 Eosinophils % 0.6 Basophils % 0.9 - RADIOLOGY Radiology Studies Ordered: Category Date Time Status ABDOMEN US -LIMITED [US] Stat Ultrasound 02/16/17 20:13 Ordered - Medications Given in the ED: ED Medications Discontinued Medications Generic Name Dose Route Start Last Admin Trade Name Titusq PRN Reason Stop Dose Admin Insulin Human Regular 10 units 02/16/17 20:11 02/16/17 20:27 Novolin R Vial *For Ivpush Or Iv Drip Only* IVPUSH 02/16/17 20:12 10 units ONCE ONE Administration Ketorolac Tromethamine 30 mg 02/16/17 20:14 02/16/17 20:28 Toradol Injection - IVPUSH 02/16/17 20:15 Not Given ONCE ONE Sodium Chloride 1,000 ml 02/16/17 20:12 02/16/17 20:27 Normal Saline - IV 02/16/17 20:13 1,000 ml ONCE ONE Administration <Peyton Carroll - Last Filed: 02/16/17 22:25> - LABORATORY CBC & Chemistry Diagram: 02/16/17 19:10 02/16/17 19:10 - ADDITIONAL ORDERS Additional order review: Laboratory Results 02/16/17 02/16/17 02/16/17 19:10 19:10 19:10 Sodium Potassium Chloride Carbon Dioxide Anion Gap BUN Creatinine Creat Clearance w eGFR Random Glucose Calcium Total Bilirubin AST ALT Alkaline Phosphatase Creatine Kinase Troponin I Total Protein Albumin Lipase Cancelled Urine Color Lt. yellow Urine Appearance Clear Urine pH 6.5 Ur Specific [place] <= 1.005 Urine Protein Negative Urine Glucose (UA) 3+ H Urine Ketones Negative Urine Blood 2+ H Urine Nitrite Negative Urine Bilirubin Negative Urine Urobilinogen 0.2 Urine WBC (Auto) 11 Urine RBC (Auto) 9 Ur Epithelial Cells Rare Urine Bacteria Rare Urine HCG, Qual Negative 02/16/17 02/16/17 19:10 19:10 Sodium 133 L Potassium 4.1 Chloride 99 Carbon Dioxide 26 Anion Gap 8 BUN 16 Creatinine 0.8 Creat Clearance w eGFR > 60 Random Glucose 512 H* Calcium 9.3 Total Bilirubin 0.4 AST 8 L D ALT 18 Alkaline Phosphatase 133 H D Creatine Kinase Cancelled 37 Troponin I Cancelled < 0.02 Total Protein 8.1 Albumin 3.4 Lipase 961 H Urine Color Urine Appearance Urine pH Ur Specific [place] Urine Protein Urine Glucose (UA) Urine Ketones Urine Blood Urine Nitrite Urine Bilirubin Urine Urobilinogen Urine WBC (Auto) Urine RBC (Auto) Ur Epithelial Cells Urine Bacteria Urine HCG, Qual 02/16/17 19:10 RBC 4.89 MCV 84.0 MCHC 34.4 RDW 13.3 MPV 8.5 Neutrophils % 58.9 Lymphocytes % 33.4 Monocytes % 6.2 Eosinophils % 0.6 Basophils % 0.9 - Medications Given in the ED: ED Medications Discontinued Medications Generic Name Dose Route Start Last Admin Trade Name Candis PRN Reason Stop Dose Admin Insulin Human Regular 10 units 02/16/17 20:11 02/16/17 20:27 Novolin R Vial *For Ivpush Or Iv Drip Only* IVPUSH 02/16/17 20:12 10 units ONCE ONE Administration Ketorolac Tromethamine 30 mg 02/16/17 20:14 02/16/17 20:28 Toradol Injection - IVPUSH 02/16/17 20:15 Not Given ONCE ONE Sodium Chloride 1,000 ml 02/16/17 20:12 02/16/17 20:27 Normal Saline - IV 02/16/17 20:13 1,000 ml ONCE ONE Administration <Landry Dean - Last Filed: 02/16/17 23:53> Medical Decision Making - Medical Decision Making 02/16/17 18:49 I, Dr. Lexi Grewal, attest that the scribes documentation that appears above has been prepared under my direction and personally reviewed by me. I confirmed that the note above accurately reflects all work, treatment, procedures, and medical decision-making performed by me. 02/16/17 18:50 Pt seen and examined immediately upon arrival in ED. Pt says she has pain in chest since being kicked in the chest by her while they were play fighting. Pt says she has nottaken any meds for pain, pt with no bruising notedto chest or body, pt with unremarkable ekg, pt says she has a history of pancreatititis and thinks her pancreatitis is acting up, pt says her mouth is dry , pt requesating admission because shhe says she does not feel well, whenasked if she feels safe at home, she insists she is safe and her would never harm her. PT also concerned she could be so preg test ordered and pt c/o recently elevated blood sugars. Labs, and fluid ordered will keep pt npo for now and case endorsed to oncoming physician to f/u labs and make final disposition <Lexi Grewal - Last Filed: 02/16/17 18:50> - Medical Decision Making 02/16/17 20:28 I received pt on signout; she comes with atypical chest pain. Pt has pancreatitis. She has known DM, for which she takes NPH insulin. Pt states that she took her meds today. She has had pancreatitis in the past, she is not sure why she gets pancreatitis. Pt will get a sono of her GB, as she has an elevated alk phos. Pt denies alcohol ingestion. 02/16/17 22:20 Patient Name: TRISTAN DAVIS THIS IS A PRELIMINARY REPORT FROM [facility] [id number] [facility] DATE OF SERVICE: 2017-02-16 20:35:57 IMAGES: 53 EXAM: US ABDOMEN LIMITED HISTORY: Pancreatitis. Suspected gallstones. COMPARISON: None. FINDINGS: The liver is of uniform echogenicity without biliary ductal dilatation, mass or cystic change. It measures 18.0 cm in greatest dimension. A contracted gallbladder is present in the right upper quadrant without evidence of cholelithiasis. The common bile duct measured 0.4 cm in diameter which is within normal limits. The pancreas demonstrates uniform echogenicity without ductal dilatation, mass or cystic change. Sex: F Study Description: US ABDOMEN LIMITED Modality: US Location: [facility] Referring Physician: GISELLE EUGENE The spleen is not enlarged at 9.9 cm. Greatest dimension of the right kidney is 13.4 cm. No evidence of hydronephrosis , mass or cystic change. The aorta and IVC are unremarkable. No evidence of ascites. IMPRESSION Normal abdominal ultrasound. No evidence of cholelithiasis <Peyton Carroll - Last Filed: 02/16/17 22:25> - Medical Decision Making 02/16/17 21:56 9:35pm Call was placed to Dr. Kearney and case was discussed. 10:01pm Microblog was placed to the hospitalist for inpatient Medsurg admission. <Landry Dean - Last Filed: 02/16/17 23:53> *DC/Admit/Observation/Transfer - Attestations Scribe Attestion: 02/16/17 18:48 Documentation prepared by Jackeline Small, acting as medical technologist blood bank for Lexi Grewal MD/DO. <Jackeline Small - Last Filed: 02/16/17 18:47> <Lexi Grewal - Last Filed: 02/16/17 18:50> - Discharge Dispostion Admit: Yes <Peyton Carroll - Last Filed: 02/16/17 22:25> - Attestations Scribe Attestion: 02/16/17 21:57 Documentation prepared by Landry Dean, acting as medical technologist blood bank for Peyton Carroll MD. <Landry Dean - Last Filed: 02/16/17 23:53> Diagnosis at time of Disposition: Pancreatitis, Hyperglycemia - Discharge Dispostion Condition at time of disposition: Guarded
[2017-02-16 19:19] LABS: BASO % 0.9 % (0-2.0); EOS % 0.6 % (0-4.5); HEMATOCRIT 41.1 % (32.4-45.2); HEMOGLOBIN 14.1 GM/dL (10.7-15.3); LYMPH % 33.4 % (8-40); MCH 28.9 pg (25.7-33.7); MCHC 34.4 g/dl (32.0-36.0); MEAN PLT VOLUME 8.5 fl (7.5-11.1); MONO % 6.2 % (3.8-10.2); NEUT % 58.9 % (42.8-82.8); PLATELET COUNT 183 K/MM3 (134-434); RBC 4.89 M/mm3 (3.60-5.2); RDW 13.3 % (11.6-15.6); WHITE BLOOD COUNT 8.1 K/mm3 (4.0-10.0)
[2017-02-16 19:25] LABS: PH,URINE 6.5 (5.0-8.0); URINE APPEARANCE CLEAR; URINE BILIRUBIN NEGATIVE (NEGATIVE); URINE BLOOD 2+ (NEGATIVE); URINE COLOR LT. YELLOW; URINE GLUCOSE (UA) 3+ (NEGATIVE); URINE KETONE NEGATIVE (NEGATIVE); URINE NITRITE NEGATIVE (NEGATIVE); URINE PROTEIN NEGATIVE (NEGATIVE); URINE UROBILINOGEN 0.2 mg/dL (0.2-1.0)
[2017-02-16 19:32] LABS: EPI CELLS RARE /HPF (FEW); URINE BACTERIA RARE /hpf (NONE SEEN)
[2017-02-16 19:52] LABS: ALBUMIN 3.4 g/dl (3.4-5.0); ANION GAP 8 (8-16); BLOOD UREA NITROGEN 16 mg/dL (7-18); CALCIUM 9.3 mg/dL (8.5-10.1); CHLORIDE 99 mmol/L (98-107); CO2 26 mmol/L (21-32); CREATININE 0.8 mg/dL (0.55-1.02); POTASSIUM 4.1 mmol/L (3.5-5.1); SGOT/AST 8 U/L (15-37); SGPT/ALT 18 U/L (12-78); SODIUM 133 mmol/L (136-145)
[2017-02-16 19:58] LABS: ALK PHOS 133 U/L (45-117); BILIRUBIN,TOTAL 0.4 mg/dL (0.2-1.0); TOT PROT 8.1 g/dl (6.4-8.2)
[2017-02-16 20:06] LABS: LIPASE 961 U/L (73-393)
[2017-02-16 20:07] LABS: GLUCOSE,RANDOM 512 mg/dL (74-106)
[2017-02-16] MEDS ORDERED: INSULIN REGULAR HUMAN 100 UNITS/ML *VIAL IVPUSH ONE (20:11)
[2017-02-16] MEDS ORDERED: SODIUM CHLORIDE 0.9% 500 ML INFUS.BAG IV ONE (20:12)
[2017-02-16] MEDS ORDERED: INSULIN REGULAR HUMAN 100 UNITS/ML *VIAL ONE (20:13)
[2017-02-16] MEDS ORDERED: KETOROLAC TROMETHAMINE 30 MG/1 ML VIAL ONE (20:13)
[2017-02-16] MEDS ORDERED: KETOROLAC TROMETHAMINE 30 MG/1 ML VIAL IVPUSH ONE (20:14)
[2017-02-16] MEDS ORDERED: INSULIN REGULAR 100 UNITS in SODIUM CHLORIDE 99 ML IVPB SCH (22:00)
[2017-02-16 22:44] LABS: URINE LEUK ESTERASE Negative (NEGATIVE)
[2017-02-16] MEDS: SODIUM CHLORIDE 1,000 ML IV SCH (23:14)
[2017-02-16] MEDS ORDERED: ACETAMINOPHEN 325 MG TABLET (FP) PO PRN (23:22)
[2017-02-16] MEDS ORDERED: ONDANSETRON 4 MG/2 ML VIAL IVPUSH PRN (23:31)
--- NOTE | 2017-02-16 23:52 | PN ---
Teaching Attending Note Name of Resident: Carmelo Aragon ATTENDING PHYSICIAN STATEMENT I saw and evaluated the patient. Chart, data, imaging reviewed. I reviewed the resident's note and discussed the case with the resident. I agree with the resident's findings and plan as documented. SUBJECTIVE: 26-year-old female w/ epilepsy, IDDM, chronic pancreatitis, asthma, CHF, hypothyroidism, anxiety,bipolar d/o c/o epigastric pain associated w/ nausea for the past 3 days. Denied drinking any etoh or any illicit drugs. U/S of abdomen did not show any pancreatitis. Pt also noncompliant with insulin and was found to have hyperglycemia. No fevers, chills, significant trauma recently. OBJECTIVE: Last Vital Signs Temp Pulse Resp BP Pulse Ox 98.6 F 83 18 113/74 95 02/16/17 18:18 02/16/17 18:18 02/16/17 18:18 02/16/17 18:18 02/16/17 23:25 general nad, aaox3 , conversing heent -at, nc, moist oral mucosa neck -supple cvs1+s2+ rrr chest cta b/l abdomen obese, soft, nt, bs+ skin- no rashes noted EKG - nsr, nonspecific t wave abnormalities Abnormal Lab Results 02/16/17 02/16/17 02/16/17 19:10 19:10 21:55 Sodium 133 L Random Glucose 512 H* AST 8 L D Alkaline Phosphatase 133 H D Lipase 961 H Urine Glucose (UA) 3+ H Urine Blood 2+ H Acetone, Qual Negative L ASSESSMENT AND PLAN: #Epigastric pain likely 2/2 to chronic pancreatitis exacerbation. Uncertain etiology of pancreatitis. Followed by GI in the past, suspicion of familial pancreatitis. Gallstones not seen on abdomen U/S. Epigastric pain may be 2/2 to gastritis. ACS highly unlikely in this young woman, troponin was negativ, ekg with no significant findings. -admit to med/surg -IV fluid hydration -NPO for now -early enteric feeding -correct any electrolyte abnormalities -PPIs IV -ZOfran PRN if nausea/vomiting -morphine IV prn if pain -send lipid panel to r/o hyper- TG -etoh in serum -urine toxicology #hyperglycemia- no evidence of DKA or HHS -tight insulin sliding scale #chronic medical problems -restart home medications #DVT ppx -heparin sc
[2017-02-17] MEDS ORDERED: MELATONIN 5 MG TABLETS PO PRN (00:06)
--- NOTE | 2017-02-17 00:20 | HP ---
CHIEF COMPLAINT: Epigastric pain radiating to back PCP: Dr. Richardson HISTORY OF PRESENT ILLNESS: 26 yo woman w/ pmh of IDDM, epilepsy, chronic pancreatitis (multiple hospital visits in past two years), ?CHF and hypothyroidism who presents to the ED in the setting of three days of worsening epigastric pain, worsened by fatty foods and intermittent nausea/fatigue. Pt endorses a progressive epigastric pain developing over the last 3 days, initially non-radiating and non-positional and worsened by eating (especially fatty foods). Pt states this pain and presentation feels very similar to prior hospital visits for pancreatitis in the past. Pt denies any stool changes, diarrhea/constipation, decreased PO intake, as well as fever/chills, palpitations, cough, SOB, dysuria, new rashes or peripheral numbness or weakness. She endorses mild fatigue, as well as mild midsternal CP, non-radiating, which she attributes to being kicked in the chest by her early that day during playfighting and had resolved by this interview was conducted. Pt rated her pain as 10/10 initially, but states it is now significantly improved. She endorses preserve appetite and wishes to eat. Pt has extensive hx of hospital visits due to pancreatitis in the past. Prior records show negative results for work-up of autoimmune or hypertriglyceridemia. Pt denies significant alcohol abuse, states she is social drinker. No hx of gallstones. Pt is taking a novolog mix at home for glucose control, but has significant hx of noncompliance given psychiatric conditions. Pt states that the cause of her pancreatitis has never been uncovered during her multiple hospital stays. ER course was notable for: (1) Stable vitals, afebrile (2) BG 512 (3) Lipase 961 (4) Negative test Recent Travel: None PAST MEDICAL HISTORY: Epilepsy IDDM Chronic pancreatitis (multiple admissions per pt since 2014) CHF (unknown diastolic/systolic, ischemic/nonischemic?) - Unable to provide many details to nature of CHF Hypothyroidism Anxiety Depression ?Bipolar disorder - Recently hospitalized in October 2016 Asthma PAST SURGICAL HISTORY: None Social History: Smoking: No Alcohol: Occasionally Drugs: No Family History: Grandparents with heart dz Father of pancreatitis (presumably due to alcoholism) Allergies mushroom Allergy (Verified 02/16/17 18:22) No Known Drug Allergies Allergy (Verified 02/16/17 18:22) SEAFOOD Allergy (Severe, Uncoded 02/16/17 18:22) ANAPHYLAXIS HOME MEDICATIONS: Home Medications Medication Instructions Recorded Albuterol Sulfate Inhaler - 1 puff IH Q8H 03/22/16 [Ventolin HFA Inhaler -] Levothyroxine Sodium [Synthroid] 88 mcg PO DAILY 03/22/16 Clonazepam [Klonopin -] 0.5 mg PO BID PRN 05/23/16 Acetaminophen [Tylenol .Regular 650 mg PO Q6H PRN #0 tablet 06/10/16 Strength -] Phenytoin Na Extended [Dilantin -] 200 mg PO BID #120 06/10/16 Topiramate [Topamax -] 25 mg PO BID #60 tablet 06/10/16 Insulin Aspart Prot/Insuln Asp 50 units SQ BID 08/03/16 [Novolog Mix 70-30 Flexpen Syrn] Fluconazole 150 mg PO ONCE #2 tablet 10/26/16 Erythromycin 0.5% Eye Ointment 1 applic AD QID #1 tube 01/18/17 [Erythromycin 0.5% Eye Ointment -] Ketotifen Fumarate [Allergy Eye 1 drop OD BID #1 bottle 01/25/17 Drops] REVIEW OF SYSTEMS CONSTITUTIONAL: generalized weakness Absent: fever, chills, diaphoresis, , malaise, loss of appetite, weight change HEENT: Absent: rhinorrhea, nasal congestion, throat pain, throat swelling, difficulty swallowing CARDIOVASCULAR: Absent: chest pain, syncope, palpitations, irregular heart rate, lightheadedness , peripheral edema RESPIRATORY: Absent: cough, shortness of breath, dyspnea with exertion, orthopnea, wheezing, stridor, hemoptysis GASTROINTESTINAL: abdominal pain, nausea, Absent: abdominal distension, vomiting, diarrhea, constipation, melena, hematochezia GENITOURINARY: Absent: dysuria, frequency, urgency, hesitancy, hematuria, MUSCULOSKELETAL: back pain, Absent: myalgia, arthralgia, joint swelling, neck pain SKIN: Absent: rash, itching, pallor HEMATOLOGIC/IMMUNOLOGIC: Absent: easy bleeding, easy bruising, lymphadenopathy, frequent infections NEUROLOGIC: Absent: headache, focal weakness or paresthesias, dizziness, unsteady gait, seizure PHYSICAL EXAMINATION Vital Signs - 24 hr 02/16/17 02/16/17 18:18 23:25 Temperature 98.6 F Pulse Rate 83 Respiratory 18 Rate Blood Pressure 113/74 O2 Sat by Pulse 98 95 Oximetry (%) GENERAL: Awake, alert, and fully oriented, in NAD. HEAD: Normal with no signs of trauma. EYES: Pupils equal, round and reactive to light, extraocular movements intact, sclera anicteric, conjunctiva clear. No lid lag. EARS, NOSE, THROAT: Ears normal, nares patent, oropharynx clear without exudates. Moist mucous membranes. NECK: Normal range of motion, supple without lymphadenopathy, JVD, or masses. Possible thyromegaly LUNGS: Breath sounds equal, clear to auscultation bilaterally. No wheezes, and no crackles. No accessory muscle use. HEART: Regular rate and rhythm, normal S1 and S2 without murmur, rub or gallop. ABDOMEN: Soft, globular, nontender, not distended, normoactive bowel sounds, no guarding, no rebound, no masses. - murphys. No hepatomegaly or splenomegaly. MUSCULOSKELETAL: Normal range of motion at all joints. No bony deformities or tenderness. No CVA tenderness. UPPER EXTREMITIES: 2+ pulses, warm, well-perfused. No cyanosis. No clubbing. No peripheral edema. LOWER EXTREMITIES: 2+ pulses, warm, well-perfused. No calf tenderness. No peripheral edema. NEUROLOGICAL: Cranial nerves II-XII intact. Normal speech. Gait not evaluated. 5/5 strength in all muscle groups in all extremities. Preserved sensation to light touch in all extremities. PSYCHIATRIC: Cooperative. Good eye contact. Appropriate mood and affect. SKIN: Warm, dry, normal turgor, no rashes or lesions noted, normal capillary refill. Laboratory Results - last 24 hr CBC, BMP 02/16/17 19:10 02/16/17 19:10 02/16/17 02/16/17 02/16/17 19:10 19:10 19:10 WBC 8.1 RBC 4.89 Hgb 14.1 Hct 41.1 MCV 84.0 MCH 28.9 MCHC 34.4 RDW 13.3 Plt Count 183 MPV 8.5 Neutrophils % 58.9 Lymphocytes % 33.4 Monocytes % 6.2 Eosinophils % 0.6 Basophils % 0.9 Sodium 133 L Potassium 4.1 Chloride 99 Carbon Dioxide 26 Anion Gap 8 BUN 16 Creatinine 0.8 Creat Clearance w eGFR > 60 Random Glucose 512 H* Calcium 9.3 Total Bilirubin 0.4 AST 8 L D ALT 18 Alkaline Phosphatase 133 H D Creatine Kinase 37 Cancelled Troponin I < 0.02 Cancelled Total Protein 8.1 Albumin 3.4 Lipase 961 H Urine Color Urine Appearance Urine pH Ur Specific Acra Urine Protein Urine Glucose (UA) Urine Ketones Urine Blood Urine Nitrite Urine Bilirubin Urine Urobilinogen Ur Leukocyte Esterase Urine WBC (Auto) Urine RBC (Auto) Ur Epithelial Cells Urine Bacteria Urine HCG, Qual Acetone, Qual 02/16/17 02/16/17 02/16/17 19:10 19:10 19:10 WBC RBC Hgb Hct MCV MCH MCHC RDW Plt Count MPV Neutrophils % Lymphocytes % Monocytes % Eosinophils % Basophils % Sodium Potassium Chloride Carbon Dioxide Anion Gap BUN Creatinine Creat Clearance w eGFR Random Glucose Calcium Total Bilirubin AST ALT Alkaline Phosphatase Creatine Kinase Troponin I Total Protein Albumin Lipase Cancelled Urine Color Lt. yellow Urine Appearance Clear Urine pH 6.5 Ur Specific Acra <= 1.005 Urine Protein Negative Urine Glucose (UA) 3+ H Urine Ketones Negative Urine Blood 2+ H Urine Nitrite Negative Urine Bilirubin Negative Urine Urobilinogen 0.2 Ur Leukocyte Esterase Negative Urine WBC (Auto) 11 Urine RBC (Auto) 9 Ur Epithelial Cells Rare Urine Bacteria Rare Urine HCG, Qual Negative Acetone, Qual 02/16/17 21:55 WBC RBC Hgb Hct MCV MCH MCHC RDW Plt Count MPV Neutrophils % Lymphocytes % Monocytes % Eosinophils % Basophils % Sodium Potassium Chloride Carbon Dioxide Anion Gap BUN Creatinine Creat Clearance w eGFR Random Glucose Calcium Total Bilirubin AST ALT Alkaline Phosphatase Creatine Kinase Troponin I Total Protein Albumin Lipase Urine Color Urine Appearance Urine pH Ur Specific Acra Urine Protein Urine Glucose (UA) Urine Ketones Urine Blood Urine Nitrite Urine Bilirubin Urine Urobilinogen Ur Leukocyte Esterase Urine WBC (Auto) Urine RBC (Auto) Ur Epithelial Cells Urine Bacteria Urine HCG, Qual Acetone, Qual Negative L No Micro EKG 02/16: NSR. Rate 90~ NAD. No QTc prolongation. No ST changes. TWI inversion in V1-V2. CXR 02/16: Pending Abdominal U/S 02/16: No evidence of acute pancreatitis, gallstones ASSESSMENT/PLAN: 26 yo woman w/ pmh of IDDM, chronic pancreatitis (multiple hospital visits in past two years), ?CHF and hypothyroidism who presents to the ED in the setting of three days of worsening epigastric pain, worsened by fatty foods and intermittent nausea/fatigue. Pt found to have elevated Glucose (512) and lipase (961), with abdominal U/S negative for significant pancreatitic inflammation. #Acute on Chronic Pancreatitis - Lipase 961, glucose 512, similar to prior presentations for pancreatitis - NPO overnight. Resume feeds in morning if tolerated - Zofran 4mg PRN for nausea - Tylenol 650 PO Q4h PRN for pain control. Consider escalation to narcotics for breakthrough pain. - PPI for possible gastritis, ppx - Aggressive fluids. 150 CC NS every hour. Monitor for signs of fluids overload 2/2 CHF - If significantly distended, worsening, can place NG tube - F/u am CMP, amylase, CBC - Urine tox, serum alcohol - Lipid panel #Elevated Glucose/#IDDM - 512 on admission. Pt poorly compliant with meds. - Insulin gtt d/c'ed - ISS - BGM q4h #Atypical chest pain - Believed to be due kick to chest during playfighting. - Trops <0.02 - EKG relatively normal - Monitor for worsening cardiac function. #Seizure disorder - Per pt, on Keppra 500mg daily. Off lithium recently. - Restart home Keppra at 500mg daily #Hypothyroidism - - Hold synthroid - Check TSH #Depression - f/u Risperdal home dose - Seroquel 100mg per family. Will confirm #Anxiety - Klonopin 0.5 PO BID for anxiety #Insomnia- pt endorses mild insomnia, states he cannot sleep in hospital - Start on melatonin 5mg qHs PPX SubQ heparin 5000u Protonix IV FEN: Fluids; 150cc NS Electrolytes: Daily BMPs, replete lytes Nutrition: NPO for now. Enteral feeds in AM Plan was discussed with my attending, Dr. Wilian Aragon, PGY1 Visit type - Emergency Visit Emergency Visit: Yes ED Registration Date: 02/16/17 Care time: The patient presented to the Emergency Department on the above date and was hospitalized for further evaluation of their emergent condition. - New Patient This patient is new to me today: Yes Date on this admission: 02/17/17 - Critical Care Critical Care patient: No
[2017-02-17] MEDS ORDERED: morphine SULFATE 4 MG/ML VIAL IVPUSH PRN (00:27)
[2017-02-17] MEDS: SODIUM CHLORIDE 1,000 ML IV SCH ×2 (01:05→09:03)
[2017-02-17] MEDS: INSULIN SLIDING SCALE (NOVOLOG) 1 VIAL SQ SCH ×3 (01:06→11:13)
[2017-02-17 01:51] VITALS: BMI 28.3
[2017-02-17] MEDS ORDERED: HEPARIN NA (PORCINE) 5,000 UNITS/ML 1ML VIAL SQ SCH (06:00)
[2017-02-17 06:25] VITALS: PULSE 80
[2017-02-17] MEDS ORDERED: INSULIN (NOVOLOG) ASPART 100 UNITS/ML 10ML VIAL ONE (06:44)
[2017-02-17 07:13] LABS: HEMATOCRIT 39.2 % (32.4-45.2); HEMOGLOBIN 13.2 GM/dL (10.7-15.3); MCH 28.2 pg (25.7-33.7); MCHC 33.8 g/dl (32.0-36.0); MEAN CELL VOLUME 83.6 fl (80-96); MEAN PLT VOLUME 8.1 fl (7.5-11.1); PLATELET COUNT 196 K/MM3 (134-434); RBC 4.69 M/mm3 (3.60-5.2); RDW 13.1 % (11.6-15.6); WHITE BLOOD COUNT 8.3 K/mm3 (4.0-10.0)
[2017-02-17 07:30] LABS: ALBUMIN 2.9 g/dl (3.4-5.0); AMYLASE 67 U/L (25-115); ANION GAP 7 (8-16); BILIRUBIN,TOTAL 0.5 mg/dL (0.2-1.0); BLOOD UREA NITROGEN 13 mg/dL (7-18); CALCIUM 8.4 mg/dL (8.5-10.1); CHLORIDE 107 mmol/L (98-107); CO2 24 mmol/L (21-32); CREATININE 0.4 mg/dL (0.55-1.02); GLUCOSE,RANDOM 239 mg/dL (74-106); POTASSIUM 3.7 mmol/L (3.5-5.1); SGOT/AST 9 U/L (15-37); SGPT/ALT 16 U/L (12-78); SODIUM 138 mmol/L (136-145); TOT PROT 6.6 g/dl (6.4-8.2)
[2017-02-17 07:31] LABS: ALK PHOS 90 U/L (45-117)
[2017-02-17] MEDS ORDERED: INSULIN DETEMIR 100 UNITS/ML MDV SQ ONE ×2 (08:03→11:27)
--- NOTE | 2017-02-17 08:48 | EKG ---
Test Reason : Blood Pressure : / mmHG Vent. Rate : 088 BPM Atrial Rate : 088 BPM P-R Int : 188 ms QRS Dur : 102 ms QT Int : 358 ms P-R-T Axes : 066 067 050 degrees QTc Int : 433 ms NORMAL SINUS RHYTHM POSSIBLE LEFT ATRIAL ENLARGEMENT BORDERLINE ECG WHEN COMPARED WITH ECG OF 09-SEP-2016 19:14, VENT. RATE HAS INCREASED BY 30 BPM Confirmed by ALISON AWAN, SURJIT ([id number]) on 02/17/2017 8:47:41 AM Referred By: Confirmed By:SURJIT ROSAS MD
[2017-02-17] MEDS ORDERED: FLU VACCINE QUAD 60 MCG/0.5 ML (MDV 17-18) IM ONE (10:00)
[2017-02-17] MEDS ORDERED: PANTOPRAZOLE SODIUM 40 MG VIAL IVPUSH SCH (10:00)
[2017-02-17 11:29] VITALS: BP 116/60; TEMP 97.7
[2017-02-17] MEDS ORDERED: ATORVASTATIN CA 10 MG TABLET (FP) PO SCH (11:45)
[2017-02-17] MEDS ORDERED: risperiDONE 2 MG TABLET PO SCH (11:45)
[2017-02-17] MEDS ORDERED: TOPIRAMATE 25 MG TABLET (FP) PO SCH (11:45)
[2017-02-17] MEDS ORDERED: levETIRAcetam 500 MG TABLET (FP) PO SCH (11:45)
--- NOTE | 2017-02-17 11:54 | DS ---
Physical Examination Vital Signs: Vital Signs Temperature 97.7 F 02/17/17 10:00 Pulse Rate 80 02/17/17 10:00 Respiratory Rate 16 02/17/17 10:00 Blood Pressure 116/60 02/17/17 10:00 O2 Sat by Pulse Oximetry (%) 98 02/17/17 01:21 Findings/Remarks: denies any abd pian since last night after coming to hospital . no N/V . no cp or SOB . no diarrhea . reports missing some doses of insulin at home she is interested in following with GI doctor Constitutional: Yes: Well Nourished, No Distress, Calm Eyes: Yes: Conjunctiva Clear HENT: Yes: Atraumatic, Normocephalic Cardiovascular: Yes: Regular Rate and Rhythm, S1, S2. No: Gallop, Murmur Respiratory: Yes: Regular, CTA Bilaterally Gastrointestinal: Yes: Normal Bowel Sounds, Soft. No: Distention, Tenderness Edema: No Neurological: Yes: Alert, Oriented. No: Aphasia, Facial Droop, Lethargy Labs: CBC, BMP 02/17/17 06:00 02/17/17 06:00 Discharge Summary Reason For Visit: ELEVATED GLUCOSE LEVEL, PANCREATITIS Current Active Problems Abdominal pain (Acute) Hyperglycemia (Acute) Chronic pancreatitis (Chronic) Hospital Course: 26 y/o lady who carries a diagnosis of chronic pancreatitis per her report , epilepsy, Bipolar, Depression, anxiety, Asthma, and other medical problems who presented with abd pain In ER she was found to have a lipase of 900 but by that time her pain resolved. US of Abd showed no cholelithiasis . she was admitted to floor over night. today she is pain free and ate a diabetic diet. given the reapid resolution of her sx , She ulikely has acute pancreatitis this time, despite her elevated lipase ( chronically elevated with much higher spikes in past ) . she was w/u in past , and seen by Dr. Boothe previously. due to Nl IgG4 she was felt not to have auroimmune pancreatitis , and she had NL TG and Ca so those etiologies are out. She does not drink alcohol, and has no gall stones. prior MRI in 2014 excluded anatomical pancreas abnormalities. She has diabetes and this could be a cause, also familial panreatitis could be in DDx. Her sugar was elevated at presentation but had no signs of DKA . she has type I DM and has uncontrolled sugars. she was given levemir here . she will need to follow with Dr. Bee her meat soaker she has h/o Seizure and has been taken off her dilantin per her, now she is on keppra , which was resumed she has to follow withher neurologist she has h/o Bipolar and was placed o n her psych meds here she has h/o Hypothyroidism, but she reported being taken off synthroid in Oct . Her TSH is nL now her meds were confirmed by me , and updated in system She will be going home today. she was given Dr. Martinez contact to follow with him. and she should follow her meat soaker and PCP. Condition: Improved - Instructions Diet, Activity, Other Instructions: - please follow with your PCP - please follow withDr. Martinez, the GI specialist. - please take low fat diabetic diet - follow with your meat soaker for your insulin treatment - report any symptoms to your doctor . - lipitor is a new medication added to your regimen , it is to treat your elevated cholesterol level Referrals: Trey Richardson MD [Primary Care Provider] - 1 Week Darrick Martinez MD [Staff Physician] - 2 Weeks Disposition: HOME - Home Medications Comprehensive Discharge Medication List: Ambulatory Orders Albuterol Sulfate Inhaler - [Ventolin HFA Inhaler -] 1 puff IH Q8H 03/22/16 Clonazepam [Klonopin -] 0.5 mg PO BID PRN 05/23/16 Acetaminophen [Tylenol .Regular Strength -] 650 mg PO Q6H PRN #0 tablet Topiramate [Topamax -] 25 mg PO BID #60 tablet 06/10/16 Insulin Aspart Prot/Insuln Asp [Novolog Mix 70-30 Flexpen Syrn] 50 units SQ BID 08/03/16 Atorvastatin Ca [Lipitor] 10 mg PO HS #30 tablet 02/17/17 Levetiracetam [Keppra -] 500 mg PO BID 02/17/17 Quetiapine Fumarate [Seroquel] 100 tab PO HS 02/17/17 Risperidone [Risperdal] 3 mg PO DAILY 02/17/17 This patient is new to me today: Yes Date on this admission: 02/17/17 Emergency Visit: Yes ED Registration Date: 02/16/17 Care time: The patient presented to the Emergency Department on the above date and was hospitalized for further evaluation of their emergent condition. Critical Care patient: No - Discharge Referral Referred to [facility] No
[2017-02-17] MEDS ORDERED: risperiDONE 1 MG TABLET (FP) PO SCH (12:00)
[2017-02-17] MEDS ORDERED: INSULIN DETEMIR 100 UNITS/ML MDV SQ SCH (16:30)
[2017-02-17] MEDS ORDERED: QUEtiapine FUMARATE 100 MG TABLET (FP) PO SCH (22:00)
== END 2017-02-17 13:38 | disposition home or self-care (01) | DRG 638 ==
LOC: JER 18:16 → JERBED 22:26 → J7W 02-17 00:44
PROVIDERS: ADMIT Internal Medicine; ATTEND Internal Medicine
DX: E11.65 Type 2 diabetes mellitus with hyperglycemia (principal); K86.1 Other chronic pancreatitis; G40.909 Epilepsy, unspecified, not intractable, without status epilepticus; E03.9 Hypothyroidism, unspecified; R07.89 Other chest pain; F41.9 Anxiety disorder, unspecified; J45.909 Unspecified asthma, uncomplicated; I50.9 Heart failure, unspecified; F31.9 Bipolar disorder, unspecified; Z91.14 Patient's other noncompliance with medication regimen; G47.00 Insomnia, unspecified; K29.60 Other gastritis without bleeding; Z79.4 Long term (current) use of insulin
CPT/HCPCS: 36415; 71020-TC; 76705-TC; 80053; 80061; 81003; 81015; 82009; 82150; 82550; 83690; 83721; 84443; 84484; 84703; 85025; 85027; 87040; 90688; 93005; 93010; 99284-25; G0008; J2794

== ENCOUNTER 2017-04-03 17:02 | Emergency (ER) | payer OTHER ==
[2017-04-03 17:24] VITALS: BP 120/72; PULSE 77; TEMP 98.4; BMI 23.6
[2017-04-03] MEDS ORDERED: SODIUM CHLORIDE 1,000 ML IV STA (17:48)
[2017-04-03] MEDS ORDERED: ONDANSETRON 4 MG/2 ML VIAL IVPUSH ONE (18:26)
--- NOTE | 2017-04-03 19:06 | PDOC ---
History of Present Illness - General Chief Complaint: Pain, Acute Stated Complaint: VOMITTING BLOOD Time Seen by Provider: 04/03/17 17:30 History Source: Patient Exam Limitations: No Limitations - History of Present Illness Initial Comments: 04/03/17 18:56 Patient is a 26-year-old female with past medical history of chronic pancreatitis, well known to our ED, presents to the emergency department today after she states she saw blood after vomiting. Patient states that she drank some alcohol today and vomited shortly thereafter. She states that she saw bright red blood in her vomit. However she describes the blood as just a little bit in her spit "as if she had a bloody lip." Also endorses epigastric pain states she feels like her pancreatitis acting up. She is also concerned she may at this time is looking for test. Denies fevers, chills, recent illness, flulike symptoms, chest pain, shortness of breath, diarrhea, constipation, frequency, urgency and hematuria. Past History - Travel Traveled outside of the country in the last 30 days: No Close contact w/someone who was outside of country & ill: No - Past Medical History Allergies/Adverse Reactions: Allergies Allergy/AdvReac Type Severity Reaction Status Date / Time mushroom Allergy Verified 04/03/17 17:21 No Known Drug Allergies Allergy Verified 04/03/17 17:21 SEAFOOD Allergy Severe ANAPHYLAXIS Uncoded 04/03/17 17:21 Home Medications: Ambulatory Orders Albuterol Sulfate Inhaler - [Ventolin HFA Inhaler -] 1 puff IH Q8H 03/22/16 Clonazepam [Klonopin -] 0.5 mg PO BID PRN 05/23/16 Acetaminophen [Tylenol .Regular Strength -] 650 mg PO Q6H PRN #0 tablet Topiramate [Topamax -] 25 mg PO BID #60 tablet 06/10/16 Insulin Aspart Prot/Insuln Asp [Novolog Mix 70-30 Flexpen Syrn] 50 units SQ BID 08/03/16 Atorvastatin Ca [Lipitor] 10 mg PO HS #30 tablet 02/17/17 Levetiracetam [Keppra -] 500 mg PO BID 02/17/17 Quetiapine Fumarate [Seroquel] 100 tab PO HS 02/17/17 Risperidone [Risperdal] 3 mg PO DAILY 02/17/17 Anemia: No Asthma: Yes Cancer: No Cardiac Disorders: Yes (RAPID HEARTBEAT HX) CVA: No COPD: No CHF: Yes Dementia: No Diabetes: Yes GI Disorders: Yes (h/o PANCREATITIS.) Disorders: No HTN: (LOW BP) Hypercholesterolemia: No Liver Disease: No Psychiatric Problems: Yes (anxiety, bipolar) Seizures: Yes Thyroid Disease: Yes - Surgical History Abdominal Surgery: No Appendectomy: No Cardiac Surgery: No Cholecystectomy: No Lung Surgery: No Neurologic Surgery: No Orthopedic Surgery: No - Family Disease History Family Disease History: Heart Disease: Grandparents - Reproductive History (#): 1 Para: 0 Cervical CA: No Dysfunctional Uterine Bleeding: No Ectopic : No Endometrial CA: No Polycystic Ovaries: No Therapeutic (s) & number: No Tubal Ligation: No Spontaneous : 1 - Immunization History Immunization Up to Date: Yes - Suicide/Smoking/Psychosocial Hx Smoking Status: Yes Smoking History: Never smoked Have you smoked in the past 12 months: No Number of Cigarettes Smoked Daily: 0 If you are a former smoker, when did you quit?: 2011 'Breaking Loose' booklet given: 03/11/12 Hx Alcohol Use: No Drug/Substance Use Hx: No Substance Use Type: None Hx Substance Use Treatment: No Review of Systems - Review of Systems Able to Perform ROS?: Yes Comments:: 04/03/17 19:06 CONSTITUTIONAL: Absent: fever, chills, diaphoresis, generalized weakness, malaise, loss of appetite HEENT: Absent: rhinorrhea, nasal congestion, throat pain, throat swelling, difficulty swallowing, mouth swelling, ear pain, eye pain, visual Changes CARDIOVASCULAR: Absent: chest pain, loss of consciousness, palpitations, irregular heart rate, peripheral edema RESPIRATORY: Absent: cough, shortness of breath, dyspnea with exertion, orthopnea, wheezing, stridor, hemoptysis GASTROINTESTINAL: Present: abdominal pain, nausea, hemataemsis.Absent: abdominal pain, abdominal distension, nausea, vomiting, diarrhea, constipation, melena, hematochezia GENITOURINARY: Absent: dysuria, frequency, urgency, hesitancy, hematuria, flank pain, genital pain MUSCULOSKELETAL: Absent: myalgia, arthralgia, joint swelling SKIN: Absent: rash, itching, pallor HEMATOLOGIC/IMMUNOLOGIC: Absent: easy bleeding, easy bruising, lymphadenopathy, frequent infections ENDOCRINE: Absent: unexplained weight gain, unexplained weight loss, heat intolerance, cold intolerance NEUROLOGIC: Absent: headache, focal weakness or paresthesias, dizziness, unsteady gait, seizure, mental status changes, bladder or bowel incontinence PSYCHIATRIC: Absent: anxiety, depression, suicidal or homicidal ideation, hallucinations. Is the patient limited Macedonian proficient: No *Physical Exam - Vital Signs Last Vital Signs Temp Pulse Resp BP Pulse Ox 98.4 F 77 18 120/72 98 04/03/17 17:22 04/03/17 17:22 18 17:22 04/03/17 17:22 04/03/17 17:22 - Physical Exam Comments: 04/03/17 19:06 GENERAL: Well developed, well nourished. Awake and alert. No acute distress. HEENT: Normocephalic, atraumatic. PERRLA, EOMI. No conjunctival pallor. Sclera are non- icteric. Moist mucous membranes. Oropharynx is clear. NECK: Supple. Full ROM. No JVD. Carotid pulses 2+ and symmetric, without bruits. No thyromegaly. No lymphadenopathy. CARDIOVASCULAR: Regular rate and rhythm. No murmurs, rubs, or gallops. Distal pulses are 2+ and symmetric. PULMONARY: No evidence of respiratory distress. Lungs clear to auscultation bilaterally. No wheezing, rales or rhonchi. ABDOMINAL: TTP of the epigastric region, diffuse abdominal tenderness. Soft. Non- distended. No rebound or guarding. No organomegaly. Normoactive bowel sounds. MUSCULOSKELETAL Normal range of motion at all joints. No bony deformities or tenderness. No CVA tenderness. EXTREMITIES: No cyanosis. No clubbing. No edema. No calf tenderness. SKIN: Warm and dry. Normal capillary refill. No rashes. No jaundice. NEUROLOGICAL: Alert, awake, appropriate. Cranial nerves 2-12 intact. No deficits to light touch and temperature in face, upper extremities and lower extremities. No motor deficits in the in face, upper extremities and lower extremities. Normoreflexic in the upper and lower extremities. Normal speech. Toes are down- going bilaterally. Gait is normal without ataxia. PSYCHIATRIC: Cooperative. Good eye contact. Appropriate mood and affect. Medical Decision Making - Medical Decision Making 04/03/17 19:08 Patient is a 26-year-old female who presents emergency Department with 1 day of epigastric pain, vomiting. Bloody emesis seems to be due to retching given small amount of blood actually expelled. Differential diagnosis includes alcoholic pancreatitis, gastroenteritis, hyperglycemia. CBC, CMP, lipase, PT/INR, UA, UC, urine 2.normal fluids and Zofran 3.reevaluate Sign out given to [employer] Heather Mares. Pending labs, urine, dispo *DC/Admit/Observation/Transfer - Referrals Referrals: Trey Richardson MD [Primary Care Provider] - - Patient Instructions - Post Discharge Activity
--- NOTE | 2017-04-03 20:25 | PDOC ---
*Physical Exam - Vital Signs Last Vital Signs Temp Pulse Resp BP Pulse Ox 98.4 F 77 18 120/72 98 04/03/17 17:22 04/03/17 17:22 04/03/17 17:22 04/03/17 17:22 04/03/17 17:22 - Physical Exam Comments: 04/03/17 20:24 Sign-out received from outgoing ER provider Vin. Pt interviewed and examined. Ancillary studies reviewed. Awaiting labs. Per RN Moisés, patient eloped after stating "I don'twant to be stuck with needles , I just want to go home and rest because I've had a rough day." ED Treatment Course - Medications Given in the ED: ED Medications Discontinued Medications Generic Name Dose Route Start Last Admin Trade Name Candis PRN Reason Stop Dose Admin Sodium Chloride 1,000 mls @ 1,000 mls/hr 04/03/17 17:48 04/03/17 20:23 Normal Saline - IV 04/03/17 18:47 1,000 mls/hr ASDIR STA Administration Ondansetron HCl 4 mg 04/03/17 18:26 04/03/17 20:23 Zofran Injection IVPUSH 04/03/17 18:27 Not Given ONCE ONE *DC/Admit/Observation/Transfer - Referrals Referrals: Trey Richardson MD [Primary Care Provider] - - Patient Instructions - Post Discharge Activity
== END 2017-04-03 20:24 | disposition left against medical advice (07) ==
LOC: JER 17:02
PROC: 3E0337Z Introduction of Electrolytic and Water Balance Substance into Peripheral Vein, Percutaneous Approach (ICD-10-PCS; principal; 2017-04-03)
DX: R10.84 Generalized abdominal pain (principal); E10.9 Type 1 diabetes mellitus without complications; Z79.4 Long term (current) use of insulin; I50.9 Heart failure, unspecified; F41.9 Anxiety disorder, unspecified; F31.9 Bipolar disorder, unspecified
CPT/HCPCS: 99281-25

== ENCOUNTER 2017-04-23 20:38 | Emergency (ER) | payer OTHER ==
--- NOTE | 2017-04-23 20:50 | PDOC ---
Rapid Medical Evaluation Time Seen by Provider: 04/23/17 20:50 Medical Evaluation: Allergies Allergy/AdvReac Type Severity Reaction Status Date / Time mushroom Allergy Verified 04/03/17 17:21 No Known Drug Allergies Allergy Verified 04/03/17 17:21 SEAFOOD Allergy Severe ANAPHYLAXIS Uncoded 04/03/17 17:21 04/23/17 20:51 26 year old female with chronic pancreatitis and a history of seizures brought in by ambulance with abdominal pain. LMP mid-February. Pain consistent with prior episodes of pancreatitis. While in triage, she stated "I think I'm going to have a seizure." Labs including, CBC, CMP, lipase, UA, urine . To Main ED for further evaluation.
[2017-04-23 20:57] VITALS: BP 126/74; PULSE 98; TEMP 98.5; BMI 33.4
[2017-04-23 21:29] LABS: BASO % 0.6 % (0-2.0); EOS % 0.9 % (0-4.5); HEMATOCRIT 42.7 % (32.4-45.2); HEMOGLOBIN 14.4 GM/dL (10.7-15.3); LYMPH % 40.9 % (8-40); MCH 28.1 pg (25.7-33.7); MCHC 33.6 g/dl (32.0-36.0); MEAN CELL VOLUME 83.4 fl (80-96); MEAN PLT VOLUME 8.7 fl (7.5-11.1); MONO % 6.5 % (3.8-10.2); NEUT % 51.1 % (42.8-82.8); PLATELET COUNT 203 K/MM3 (134-434); RBC 5.12 M/mm3 (3.60-5.2); RDW 12.8 % (11.6-15.6); WHITE BLOOD COUNT 7.8 K/mm3 (4.0-10.0)
[2017-04-23 21:51] LABS: HCG,QUALITATIVE URINE NEGATIVE
[2017-04-23 21:52] LABS: URINE APPEARANCE CLEAR; URINE BILIRUBIN NEGATIVE (NEGATIVE); URINE BLOOD NEGATIVE (NEGATIVE); URINE COLOR COLORLESS; URINE GLUCOSE (UA) 3+ (NEGATIVE); URINE KETONE TRACE (NEGATIVE); URINE LEUK ESTERASE NEGATIVE (NEGATIVE); URINE NITRITE NEGATIVE (NEGATIVE); URINE PROTEIN NEGATIVE (NEGATIVE); URINE UROBILINOGEN NEGATIVE mg/dL (0.2-1.0)
[2017-04-23 22:04] LABS: ALBUMIN 3.6 g/dl (3.4-5.0); ALK PHOS 107 U/L (45-117); ANION GAP 9 (8-16); BILIRUBIN,TOTAL 0.4 mg/dL (0.2-1.0); BLOOD UREA NITROGEN 12 mg/dL (7-18); CALCIUM 8.9 mg/dL (8.5-10.1); CHLORIDE 98 mmol/L (98-107); CO2 26 mmol/L (21-32); CREATININE 0.8 mg/dL (0.55-1.02); LIPASE 176 U/L (73-393); POTASSIUM 3.8 mmol/L (3.5-5.1); SGOT/AST 6 U/L (15-37); SGPT/ALT 16 U/L (12-78); SODIUM 133 mmol/L (136-145); TOT PROT 7.9 g/dl (6.4-8.2)
[2017-04-23 22:06] LABS: GLUCOSE,RANDOM 607 mg/dL (74-106)
== END 2017-04-23 22:31 | disposition left against medical advice (07) ==
LOC: JER 20:38
DX: Z53.21 Procedure and treatment not carried out due to patient leaving prior to being seen by health care provider (principal)
CPT/HCPCS: 36415; 80053; 81003; 83690; 84703; 85025; 99282-25

== ENCOUNTER 2017-05-27 18:58 | Emergency (ER) | payer OTHER ==
[2017-05-27 19:24] VITALS: BP 121/87; PULSE 91; TEMP 97.8; BMI 35.9
--- NOTE | 2017-05-28 12:18 | EKG ---
Test Reason : Blood Pressure : / mmHG Vent. Rate : 084 BPM Atrial Rate : 084 BPM P-R Int : 176 ms QRS Dur : 090 ms QT Int : 370 ms P-R-T Axes : 060 062 052 degrees QTc Int : 437 ms NORMAL SINUS RHYTHM NORMAL ECG WHEN COMPARED WITH ECG OF 16-FEB-2017 18:27, NO SIGNIFICANT CHANGE WAS FOUND Confirmed by MD NIRANJAN, PITO ([id number]) on 05/28/2017 12:17:44 PM Referred By: Confirmed By:PITO UREÑA MD
== END 2017-05-27 20:46 | disposition left against medical advice (07) ==
LOC: JER 18:58
DX: Z53.21 Procedure and treatment not carried out due to patient leaving prior to being seen by health care provider (principal)
CPT/HCPCS: 93005; 93010; 99281-25

== ENCOUNTER 2017-06-11 19:31 | Emergency (ER) | payer OTHER ==
--- NOTE | 2017-06-11 20:01 | PDOC ---
Rapid Medical Evaluation Time Seen by Provider: 06/11/17 19:57 Medical Evaluation: Allergies Allergy/AdvReac Type Severity Reaction Status Date / Time mushroom Allergy Verified 05/27/17 19:22 No Known Drug Allergies Allergy Verified 05/27/17 19:22 SEAFOOD Allergy Severe ANAPHYLAXIS Uncoded 05/27/17 19:22 I have performed a brief in-person evaluation of this patient. The patient presents with a chief complaint of: right lower leg pain x 3 months. Gets so bad that she can't walk. Patient is a non-smoker, is not on control and denies recent travel. She has no hx of blood clots. Pertinent physical exam findings: Pt ambulates with normal gait. O2 sat 99% on RA. No erythema, warmth or swelling to right calf. Minimal TTP of right lower leg. I have ordered the following: venous doppler The patient will proceed to the ED for further evaluation.
[2017-06-11 20:02] VITALS: BP 119/75; PULSE 90; TEMP 97.9; BMI 35.7
[2017-06-11] MEDS ORDERED: IBUPROFEN 400 MG TABLET (FP) PO ONE ×2 (20:39→20:49)
--- NOTE | 2017-06-11 20:46 | PDOC ---
History of Present Illness - General Chief Complaint: Pain Stated Complaint: KNEE PAIN Time Seen by Provider: 06/11/17 19:57 History Source: Patient - History of Present Illness Occurred: reports: other Lower Extremity Pain Location: right: knee Past History - Past Medical History Allergies/Adverse Reactions: Allergies Allergy/AdvReac Type Severity Reaction Status Date / Time mushroom Allergy Verified 06/11/17 20:02 No Known Drug Allergies Allergy Verified 06/11/17 20:02 SEAFOOD Allergy Severe ANAPHYLAXIS Uncoded 06/11/17 20:02 Home Medications: Ambulatory Orders Albuterol Sulfate Inhaler - [Ventolin HFA Inhaler -] 1 puff IH Q8H 03/22/16 clonazePAM [Klonopin -] 0.5 mg PO BID PRN 05/23/16 Acetaminophen [Tylenol .Regular Strength -] 650 mg PO Q6H PRN #0 tablet Topiramate [Topamax -] 25 mg PO BID #60 tablet 06/10/16 Insulin Aspart Prot/Insuln Asp [Novolog Mix 70-30 Flexpen Syrn] 50 units SQ BID 08/03/16 Atorvastatin Ca [Lipitor] 10 mg PO HS #30 tablet 02/17/17 Quetiapine Fumarate [Seroquel] 100 tab PO HS 02/17/17 Risperidone [Risperdal] 3 mg PO DAILY 02/17/17 levETIRAcetam [Keppra -] 500 mg PO BID 02/17/17 Anemia: No Asthma: Yes Cancer: No Cardiac Disorders: Yes (RAPID HEARTBEAT HX) CVA: No COPD: No CHF: Yes Dementia: No Diabetes: Yes GI Disorders: Yes (h/o PANCREATITIS.) Disorders: No HTN: (LOW BP) Hypercholesterolemia: No Liver Disease: No Psychiatric Problems: Yes (anxiety, bipolar) Seizures: Yes Thyroid Disease: Yes - Surgical History Abdominal Surgery: No Appendectomy: No Cardiac Surgery: No Cholecystectomy: No Lung Surgery: No Neurologic Surgery: No Orthopedic Surgery: No - Family Disease History Family Disease History: Heart Disease: Grandparents - Reproductive History (#): 1 Para: 0 Cervical CA: No Dysfunctional Uterine Bleeding: No Ectopic : No Endometrial CA: No Polycystic Ovaries: No Therapeutic (s) & number: No Tubal Ligation: No Spontaneous : 1 - Immunization History Immunization Up to Date: Yes - Suicide/Smoking/Psychosocial Hx Smoking Status: Yes Smoking History: Never smoked Have you smoked in the past 12 months: No Number of Cigarettes Smoked Daily: 0 If you are a former smoker, when did you quit?: 2011 'Breaking Loose' booklet given: 03/11/12 Hx Alcohol Use: No Drug/Substance Use Hx: No Substance Use Type: None Hx Substance Use Treatment: No Review of Systems - Review of Systems Constitutional: No: Chills, Fever Respiratory: No: Shortness of Breath Cardiac (ROS): No: Chest Pain Musculoskeletal: Yes: Joint Pain. No: Joint Swelling *Physical Exam - Vital Signs Last Vital Signs Temp Pulse Resp BP Pulse Ox 97.9 F 90 19 119/75 99 06/11/17 20:00 06/11/17 20:00 06/11/17 20:00 06/11/17 20:00 06/11/17 20:00 - Physical Exam General Appearance: Yes: Appropriately Dressed. No: Apparent Distress HEENT: positive: Normal Voice Neck: positive: Supple Respiratory/Chest: negative: Respiratory Distress Extremity: positive: Normal Inspection. negative: Tender, Swelling, Calf Tenderness Integumentary: positive: Dry, Warm Neurologic: positive: Fully Oriented, Alert, Normal Mood/Affect Medical Decision Making - Medical Decision Making 06/11/17 20:40 26-year-old female, history of diabetes, epilepsy, chronic pancreatitis, hypothyroidism, here with right knee pain. Patient reports intermittent right knee pain 2 months. Unable to describe pain, but states it is worse with weight bearing. Denies any trauma and has not taken any pain meds. Here for evaluation for the first time for unclear reasons. Patient states she does not currently have a PMD. Well-appearing and stable with unremarkable exam. Most likely musculoskeletal. DC with [id number] pain meds and ortho referral at this point *DC/Admit/Observation/Transfer Diagnosis at time of Disposition: Knee pain Qualifiers: Chronicity: acute Laterality: right Qualified Code(s): M25.561 - Pain in right knee - Discharge Dispostion Disposition: HOME Condition at time of disposition: Good - Referrals Referrals: Freddie Tripp MD [Staff Physician] - - Patient Instructions Printed Discharge Instructions: DI for Knee Pain Additional Instructions: The cause of your knee plain is unclear at this time, but you will need further evaluation by an orthopedic doctor. Please call Dr. Tripp for an appointment in one week Take motrin as needed for pain - Post Discharge Activity
== END 2017-06-11 20:58 | disposition home or self-care (01) ==
LOC: JERFT 19:31
DX: M25.561 Pain in right knee (principal); E10.9 Type 1 diabetes mellitus without complications; Z79.4 Long term (current) use of insulin; E03.9 Hypothyroidism, unspecified; G40.909 Epilepsy, unspecified, not intractable, without status epilepticus; K86.1 Other chronic pancreatitis
CPT/HCPCS: 99281-25

== ENCOUNTER 2017-07-10 18:28 | Emergency (ER) | payer OTHER ==
--- NOTE | 2017-07-10 18:36 | PDOC ---
Rapid Medical Evaluation Medical Evaluation: Allergies Allergy/AdvReac Type Severity Reaction Status Date / Time mushroom Allergy Verified 07/10/17 18:34 No Known Drug Allergies Allergy Verified 07/10/17 18:34 SEAFOOD Allergy Severe ANAPHYLAXIS Uncoded 07/10/17 18:34 07/10/17 18:35 I have performed a brief in-person evaluation of this patient. The patient presents with a chief complaint of: "i went to [facility] last night and they told me my sugar and my pancreas is very high but they didn't have any beds to admit me so i came here", c/o abd pain Pertinent physical exam findings: NA I have ordered the following: labs The patient will proceed to the ED for further evaluation. Discharge Disposition - Diagnosis Abdominal pain - Referrals - Patient Instructions - Post Discharge Activity
[2017-07-10 18:44] VITALS: TEMP 98.6; BMI 34.9
--- NOTE | 2017-07-10 19:40 | PDOC ---
History of Present Illness - General Chief Complaint: Blood Sugar Problem Stated Complaint: BLOOD SUGAR PROBLEM Time Seen by Provider: 07/10/17 19:27 History Source: Patient - History of Present Illness Initial Comments: 07/10/17 21:01 26 year old female with history of And insulin-dependent diabetes complaining of left upper quadrant pain for several days. Patient was seen and [facility] ER yesterday and was told her pain greatly levels were elevated and needed admission. Patient reports that she was discharged since there were no bed and available. Patient reports pain today. Denies fever, chills, nausea, vomiting, diarrhea. No urinary symptoms. 07/10/17 21:19 PMD: Carol Richardson Past History - Past Medical History Allergies/Adverse Reactions: Allergies Allergy/AdvReac Type Severity Reaction Status Date / Time mushroom Allergy Verified 07/10/17 18:34 No Known Drug Allergies Allergy Verified 07/10/17 18:34 SEAFOOD Allergy Severe ANAPHYLAXIS Uncoded 07/10/17 18:34 Home Medications: Ambulatory Orders Albuterol Sulfate Inhaler - [Ventolin HFA Inhaler -] 1 puff IH Q8H 03/22/16 clonazePAM [Klonopin -] 0.5 mg PO BID PRN 05/23/16 Acetaminophen [Tylenol .Regular Strength -] 650 mg PO Q6H PRN #0 tablet Topiramate [Topamax -] 25 mg PO BID #60 tablet 06/10/16 Insulin Aspart Prot/Insuln Asp [Novolog Mix 70-30 Flexpen Syrn] 50 units SQ BID 08/03/16 Atorvastatin Ca [Lipitor] 10 mg PO HS #30 tablet 02/17/17 Quetiapine Fumarate [Seroquel] 100 tab PO HS 02/17/17 Risperidone [Risperdal] 3 mg PO DAILY 02/17/17 levETIRAcetam [Keppra -] 500 mg PO BID 02/17/17 Anemia: No Asthma: Yes Cancer: No Cardiac Disorders: Yes (RAPID HEARTBEAT HX) CVA: No COPD: No CHF: Yes Dementia: No Diabetes: Yes GI Disorders: Yes (h/o PANCREATITIS.) Disorders: No HTN: (LOW BP) Hypercholesterolemia: No Liver Disease: No Psychiatric Problems: Yes (anxiety, bipolar) Seizures: Yes Thyroid Disease: Yes - Surgical History Abdominal Surgery: No Appendectomy: No Cardiac Surgery: No Cholecystectomy: No Lung Surgery: No Neurologic Surgery: No Orthopedic Surgery: No - Family Disease History Family Disease History: Heart Disease: Grandparents - Reproductive History (#): 1 Para: 0 Cervical CA: No Dysfunctional Uterine Bleeding: No Ectopic : No Endometrial CA: No Polycystic Ovaries: No Therapeutic (s) & number: No Tubal Ligation: No Spontaneous : 1 - Immunization History Immunization Up to Date: Yes - Suicide/Smoking/Psychosocial Hx Smoking Status: Yes Smoking History: Never smoked Have you smoked in the past 12 months: No Number of Cigarettes Smoked Daily: 0 If you are a former smoker, when did you quit?: 2011 Information on smoking cessation initiated: No 'Breaking Loose' booklet given: 03/11/12 Hx Alcohol Use: No Drug/Substance Use Hx: No Substance Use Type: None Hx Substance Use Treatment: No Review of Systems - Review of Systems Able to Perform ROS?: Yes Is the patient limited Turkish proficient: No ABD/GI: Yes: Abdominal cramping. No: Symptoms Reported, See HPI, Abdominal Distended, Abd. Pain w/ defecation, Blood Streaked Bowels, Constipated, Diarrhea , Difficulty Swallowing, Nausea, Poor Appetite, Poor Fluid Intake, Rectal Bleeding, Vomiting, Indigestion, Tarry Stools, Other : No: Symptoms Reported, See HPI, Burning, Dysuria, Discharge, Frequency, Flank Pain, Hematuria, Incontinence, Pain, Urgency, Testicular Mass, Testicular Swelling, Lesions, Testicular Pain, Other Musculoskeletal: No: Symptoms Reported, See HPI, Back Pain, Gout, Joint Pain, Joint Swelling, Muscle Pain, Muscle Weakness, Neck Pain, Joint Stiffness, Other Integumentary: No: Symptoms Reported, See HPI, Bruising, Change in Color, Change in Hair/Nails, Dryness, Erythema, Flushing, Lesions, Lumps, Pallor, Pruritus, Rash, Sweating, Other *Physical Exam - Vital Signs Last Vital Signs Temp Pulse Resp BP Pulse Ox 98.6 F 100 H 18 104/34 100 07/10/17 18:36 07/10/17 18:36 07/10/17 18:36 07/10/17 18:36 07/10/17 18:36 - Physical Exam General Appearance: Yes: Appropriately Dressed Respiratory/Chest: positive: Lungs Clear, Normal Breath Sounds Gastrointestinal/Abdominal: positive: Normal Bowel Sounds, Tender (LUQ), Soft Musculoskeletal: positive: Normal Inspection Extremity: positive: Normal Capillary Refill, Normal Inspection, Normal Range of Motion Integumentary: positive: Normal Color, Dry, Warm Neurologic: positive: Fully Oriented, Alert, Normal Mood/Affect ED Treatment Course - LABORATORY CBC & Chemistry Diagram: 07/10/17 19:24 07/10/17 19:24 Medical Decision Making - Medical Decision Making 07/10/17 21:40 A: acute pancreatitis P: cbc cmp lipase CTAP : pending UA 07/10/17 23:43 cta\p: negative patient us refusing admission. all risk factors discussed with patient. patient signed out AMA *DC/Admit/Observation/Transfer Diagnosis at time of Disposition: Elevated lipase Abdominal pain Qualifiers: Abdominal location: left upper quadrant Qualified Code(s): R10.12 - Left upper quadrant pain Pancreatitis, acute Qualifiers: Pancreatitis type: unspecified pancreatitis type Acute pancreatitis complication: unspecified Qualified Code(s): K85.90 - Acute pancreatitis without necrosis or infection, unspecified - Discharge Dispostion Disposition: AGAINST MEDICAL ADVICE - Referrals Referrals: Trey Richardson MD [Primary Care Provider] - - Patient Instructions - Post Discharge Activity
[2017-07-10 19:45] LABS: BASO % 0.9 % (0-2.0); EOS % 1.2 % (0-4.5); HEMATOCRIT 40.8 % (32.4-45.2); HEMOGLOBIN 14.1 GM/dL (10.7-15.3); LYMPH % 36.9 % (8-40); MCH 29.3 pg (25.7-33.7); MCHC 34.6 g/dl (32.0-36.0); MEAN CELL VOLUME 84.8 fl (80-96); PLATELET COUNT 199 K/MM3 (134-434); RBC 4.81 M/mm3 (3.60-5.2); RDW 13.1 % (11.6-15.6); WHITE BLOOD COUNT 8.3 K/mm3 (4.0-10.0)
--- NOTE | 2017-07-10 19:45 | PDOC ---
*Physical Exam - Vital Signs Last Vital Signs Temp Pulse Resp BP Pulse Ox 98.6 F 100 H 18 104/34 100 07/10/17 18:36 07/10/17 18:36 07/10/17 18:36 07/10/17 18:36 07/10/17 18:36 ED Treatment Course - LABORATORY CBC & Chemistry Diagram: 07/10/17 19:24 07/10/17 19:24 *DC/Admit/Observation/Transfer Diagnosis at time of Disposition: Abdominal pain - Referrals Referrals: Trey Richardson MD [Primary Care Provider] - - Patient Instructions - Post Discharge Activity
[2017-07-10 19:58] LABS: INR 0.9 (0.82-1.09); PROTHROMBIN TIME (PATIENT) 10.2 SEC (9.7-13.0)
[2017-07-10 20:20] LABS: ALBUMIN 3.2 g/dl (3.4-5.0); ALK PHOS 101 U/L (45-117); ANION GAP 7 (8-16); BILIRUBIN,TOTAL 0.3 mg/dL (0.2-1.0); BLOOD UREA NITROGEN 10 mg/dL (7-18); CALCIUM 8.5 mg/dL (8.5-10.1); CHLORIDE 105 mmol/L (98-107); CO2 22 mmol/L (21-32); CREATININE 0.8 mg/dL (0.55-1.02); POTASSIUM 4.1 mmol/L (3.5-5.1); SGOT/AST 12 U/L (15-37); SGPT/ALT 15 U/L (12-78); SODIUM 134 mmol/L (136-145); TOT PROT 7.3 g/dl (6.4-8.2)
[2017-07-10 20:34] LABS: GLUCOSE,RANDOM 450 mg/dL (74-106)
[2017-07-10 21:05] LABS: VENOUS PC02 35.8 mmHg (38-52); VENOUS PH 7.4 (7.32-7.42); VENOUS PO2 62.9 mmHg (28-48)
[2017-07-10] MEDS ORDERED: SODIUM CHLORIDE 1,000 ML IV STA (21:13)
[2017-07-10] MEDS ORDERED: INSULIN REGULAR HUMAN 100 UNITS/ML *VIAL SQ ONE (21:14)
[2017-07-10] MEDS ORDERED: INSULIN (NOVOLOG) ASPART 100 UNITS/ML 10ML VIAL ONE (21:27)
[2017-07-10 21:50] LABS: URINE APPEARANCE CLEAR; URINE BILIRUBIN NEGATIVE (<2.0 mg/dL); URINE BLOOD NEGATIVE (NEGATIVE); URINE COLOR STRAW; URINE GLUCOSE (UA) 3+ (NEGATIVE); URINE KETONE TRACE (NEGATIVE); URINE LEUK ESTERASE NEGATIVE (NEGATIVE); URINE NITRITE NEGATIVE (NEGATIVE); URINE PROTEIN NEGATIVE (NEGATIVE); URINE UROBILINOGEN NEGATIVE mg/dL (0.2-1.0)
[2017-07-10 22:59] VITALS: BP 114/72; PULSE 82
== END 2017-07-10 23:51 | disposition left against medical advice (07) ==
LOC: JER 18:28
PROC: 3E0337Z Introduction of Electrolytic and Water Balance Substance into Peripheral Vein, Percutaneous Approach (ICD-10-PCS; principal; 2017-07-10)
PROC: 3E013VG Introduction of Insulin into Subcutaneous Tissue, Percutaneous Approach (ICD-10-PCS; 2017-07-10)
DX: K85.90 Acute pancreatitis without necrosis or infection, unspecified (principal); E10.65 Type 1 diabetes mellitus with hyperglycemia; R74.8 Abnormal levels of other serum enzymes; Z79.4 Long term (current) use of insulin; G40.909 Epilepsy, unspecified, not intractable, without status epilepticus; F41.9 Anxiety disorder, unspecified; F31.9 Bipolar disorder, unspecified
CPT/HCPCS: 36415; 74177-TC; 80053; 81003; 82009; 82803; 82962; 83690; 84703; 85025; 85610; 87086; 99284-25; J7030

== ENCOUNTER 2017-08-05 16:36 | Emergency (ER) | payer OTHER ==
--- NOTE | 2017-08-05 16:53 | PDOC ---
Rapid Medical Evaluation Time Seen by Provider: 08/05/17 16:53 Medical Evaluation: Allergies Allergy/AdvReac Type Severity Reaction Status Date / Time mushroom Allergy Verified 07/10/17 18:34 No Known Drug Allergies Allergy Verified 07/10/17 18:34 SEAFOOD Allergy Severe ANAPHYLAXIS Uncoded 07/10/17 18:34 08/05/17 16:54 This is a 26 year old female with IDDM, chronic pancreatitis, and BPD who presents with 2 days of epigastric pain consistent with prior episodes of pancreatitis. +Nausea but no vomiting. Alert, oriented, no distress. RRR, S1/S2. Lungs CTAB. Epigastric tenderness. -Labs including CBC, CMP, lipase -UA, urine -To Main ED for further evaluation
[2017-08-05 16:56] VITALS: BP 117/66; PULSE 109; TEMP 98.9; BMI 37.7
== END 2017-08-05 23:18 | disposition left against medical advice (07) ==
LOC: JER 16:36
DX: Z53.21 Procedure and treatment not carried out due to patient leaving prior to being seen by health care provider (principal)
CPT/HCPCS: 99281-25

== ENCOUNTER 2017-08-24 14:22 | Inpatient (IN) | payer OTHER ==
[2017-08-24 14:27] VITALS: BMI 37.7
[2017-08-24] MEDS ORDERED: ONDANSETRON 4 MG/2 ML VIAL IVPUSH ONE (15:02)
--- NOTE | 2017-08-24 15:43 | PDOC ---
History of Present Illness - General Chief Complaint: Pain Stated Complaint: ABD PAIN Time Seen by Provider: 08/24/17 14:46 History Source: Patient Exam Limitations: No Limitations - History of Present Illness Travel History: No Initial Comments: 08/24/17 15:41 26-year-old female with history of diabetes psychiatric disorder, and pancreatitis presents to the ED with complaints of cramping epigastric pain the past 3 days associated 1 episode of vomiting this morning. Patient denies fever , chills but states was here a few days ago for similar pain but left AMA. Patient denies alcohol or drug use. Patient denies irregular menses Timing/Duration: reports: constant Quality: reports: moderate, cramping, fullness Abdominal Pain Onset Location: reports: epigastric Pain Radiation: reports: RUQ Activities at Onset: reports: none Aggravating Factors: improves with: None Alleviating Factors: improves with: None Past History - Travel Traveled outside of the country in the last 30 days: No - Past Medical History Allergies/Adverse Reactions: Allergies Allergy/AdvReac Type Severity Reaction Status Date / Time mushroom Allergy Verified 08/24/17 14:26 No Known Drug Allergies Allergy Verified 08/24/17 14:26 SEAFOOD Allergy Severe ANAPHYLAXIS Uncoded 08/24/17 14:26 Home Medications: Ambulatory Orders Albuterol Sulfate Inhaler - [Ventolin HFA Inhaler -] 1 puff IH Q8H 03/22/16 clonazePAM [Klonopin -] 0.5 mg PO BID PRN 05/23/16 Acetaminophen [Tylenol .Regular Strength -] 650 mg PO Q6H PRN #0 tablet Topiramate [Topamax -] 25 mg PO BID #60 tablet 06/10/16 Insulin Aspart Prot/Insuln Asp [Novolog Mix 70-30 Flexpen Syrn] 50 units SQ BID 08/03/16 Atorvastatin Ca [Lipitor] 10 mg PO HS #30 tablet 02/17/17 Quetiapine Fumarate [Seroquel] 100 tab PO HS 02/17/17 Risperidone [Risperdal] 3 mg PO DAILY 02/17/17 levETIRAcetam [Keppra -] 500 mg PO BID 02/17/17 Anemia: No Asthma: Yes Cancer: No Cardiac Disorders: Yes (RAPID HEARTBEAT HX) CVA: No COPD: No CHF: Yes Dementia: No Diabetes: Yes GI Disorders: Yes (h/o PANCREATITIS.) Disorders: No HTN: (LOW BP) Hypercholesterolemia: No Liver Disease: No Psychiatric Problems: Yes (anxiety, bipolar) Seizures: Yes Thyroid Disease: Yes - Surgical History Abdominal Surgery: No Appendectomy: No Cardiac Surgery: No Cholecystectomy: No Lung Surgery: No Neurologic Surgery: No Orthopedic Surgery: No - Family Disease History Family Disease History: Heart Disease: Grandparents - Reproductive History (#): 1 Para: 0 Cervical CA: No Dysfunctional Uterine Bleeding: No Ectopic : No Endometrial CA: No Polycystic Ovaries: No Therapeutic (s) & number: No Tubal Ligation: No Spontaneous : 1 - Immunization History Immunization Up to Date: Yes - Suicide/Smoking/Psychosocial Hx Smoking Status: Yes Smoking History: Never smoked Have you smoked in the past 12 months: No Number of Cigarettes Smoked Daily: 0 If you are a former smoker, when did you quit?: 2011 'Breaking Loose' booklet given: 03/11/12 Hx Alcohol Use: No Drug/Substance Use Hx: No Substance Use Type: None Hx Substance Use Treatment: No Patient Lives Alone: No Lives with/in: parents Abd/GI Specific PMHX - Complaint Specific PMHX Pancreatitis: Yes Review of Systems - Review of Systems Able to Perform ROS?: No Constitutional: No: Symptoms Reported HEENTM: No: Symptoms Reported Respiratory: No: Symptoms reported Cardiac (ROS): No: Symptoms Reported ABD/GI: Yes: Nausea, Vomiting, Abdominal cramping. No: Abdominal Distended, Constipated, Poor Appetite, Poor Fluid Intake, Rectal Bleeding, Indigestion Musculoskeletal: No: Symptoms Reported Integumentary: No: Symptoms Reported Neurological: No: Symptoms reported Hematologic/Lymphatic: No: Symptoms Reported *Physical Exam - Vital Signs Last Vital Signs Temp Pulse Resp BP Pulse Ox 98 F 103 H 20 121/75 99 08/24/17 14:23 08/24/17 14:23 08/24/17 14:23 08/24/17 14:23 08/24/17 14:23 - Physical Exam General Appearance: Yes: Nourished, Appropriately Dressed. No: Apparent Distress HEENT: negative: Pale Conjunctivae Respiratory/Chest: positive: Lungs Clear, Normal Breath Sounds. negative: Respiratory Distress, Accessory Muscle Use Cardiovascular: positive: Regular Rhythm, Tachycardia. negative: Murmur Gastrointestinal/Abdominal: positive: Soft, Tenderness (epigastric right epigastric) Extremity: positive: Normal Capillary Refill Integumentary: positive: Normal Color, Warm, Moist Neurologic: positive: Motor Strength 5/5 (ambulatory) ED Treatment Course - LABORATORY CBC & Chemistry Diagram: 08/25/17 07:00 08/25/17 07:00 Medical Decision Making - Medical Decision Making 08/24/17 15:03 Patient with complaints of epigastric pain associated 1 episode of vomiting today. Patient with epigastric pain on exam without positive Suazo's abdominal distention or decreased bowel sounds. Patient with history of pancreatitis. Patient ordered for labs, urine, IV fluids, antiemetics and will consider imaging once labs are resulted. 08/24/17 16:41 Laboratory Tests 08/24/17 15:57 Urine Glucose (UA) 3+ H Urine Ketones 1+ H Urine Blood 1+ H Ur Leukocyte Esterase 3+ H Urine WBC (Auto) 128 08/24/17 17:45 Laboratory Tests 08/24/17 08/24/17 08/24/17 15:57 15:58 15:58 WBC 8.1 Hgb 14.1 Hct 40.7 Neutrophils % 63.9 D Sodium 137 Potassium 4.1 Chloride 102 Carbon Dioxide 28 Anion Gap 7 L BUN 10 Creatinine 0.8 Creat Clearance w eGFR > 60 Random Glucose 419 H* Calcium 8.4 L Magnesium 1.8 Total Bilirubin 0.4 D AST 9 L ALT 19 Alkaline Phosphatase 102 Total Protein 7.8 Albumin 3.2 L Total Amylase 67 Lipase 1477 H Ur Leukocyte Esterase 3+ H Urine WBC (Auto) 128 Urine HCG, Qual Pending Acetone, Qual Positive small 1+ H Patient concerning for pancreatitis and DKA. Patient ordered a 2 additional bags of IV fluid, abdominal US along with ceftriaxone secondary to positive urinary tract infection findings. microblog sent 08/24/17 17:53 Pt admitted to carrier clinic. Hospitalist to complete admission, h& P Laboratory Tests 08/24/17 15:57 Urine HCG, Qual Negative *DC/Admit/Observation/Transfer Diagnosis at time of Disposition: Nausea and vomiting, Abdominal pain, Elevated lipase, Elevated glucose level - Discharge Dispostion Decision to Admit order: Yes - Referrals - Patient Instructions - Post Discharge Activity
[2017-08-24] MEDS ORDERED: ONDANSETRON 4 MG/2 ML VIAL ONE (16:08)
[2017-08-24 16:11] LABS: BASO % 0.8 % (0-2.0); EOS % 0.6 % (0-4.5); HEMATOCRIT 40.7 % (32.4-45.2); HEMOGLOBIN 14.1 GM/dL (10.7-15.3); LYMPH % 28.4 % (8-40); MCH 29.6 pg (25.7-33.7); MCHC 34.6 g/dl (32.0-36.0); MEAN CELL VOLUME 85.4 fl (80-96); MEAN PLT VOLUME 8.1 fl (7.5-11.1); MONO % 6.3 % (3.8-10.2); NEUT % 63.9 % (42.8-82.8); PLATELET COUNT 202 K/MM3 (134-434); RBC 4.76 M/mm3 (3.60-5.2); RDW 12.2 % (11.6-15.6); WHITE BLOOD COUNT 8.1 K/mm3 (4.0-10.0)
[2017-08-24 16:28] LABS: URINE APPEARANCE CLOUDY; URINE BILIRUBIN NEGATIVE (<2.0 mg/dL); URINE COLOR LTYELLOW; URINE GLUCOSE (UA) 3+ (NEGATIVE); URINE KETONE 1+ (NEGATIVE); URINE NITRITE NEGATIVE (NEGATIVE); URINE PROTEIN NEGATIVE (NEGATIVE); URINE UROBILINOGEN NEGATIVE mg/dL (0.2-1.0)
[2017-08-24 16:32] LABS: URINE LEUK ESTERASE 3+ (NEGATIVE)
[2017-08-24 16:35] LABS: EPI CELLS MODERATE /HPF (FEW)
[2017-08-24 16:37] LABS: URINE BACTERIA MODERATE /hpf (NONE SEEN)
[2017-08-24 16:41] LABS: ALBUMIN 3.2 g/dl (3.4-5.0); ALK PHOS 102 U/L (45-117); AMYLASE 67 U/L (25-115); ANION GAP 7 (8-16); BILIRUBIN,TOTAL 0.4 mg/dL (0.2-1.0); BLOOD UREA NITROGEN 10 mg/dL (7-18); CALCIUM 8.4 mg/dL (8.5-10.1); CHLORIDE 102 mmol/L (98-107); CO2 28 mmol/L (21-32); CREATININE 0.8 mg/dL (0.55-1.02); MAGNESIUM 1.8 mg/dL (1.8-2.4); POTASSIUM 4.1 mmol/L (3.5-5.1); SGOT/AST 9 U/L (15-37); SGPT/ALT 19 U/L (12-78); SODIUM 137 mmol/L (136-145); TOT PROT 7.8 g/dl (6.4-8.2)
[2017-08-24 16:52] LABS: GLUCOSE,RANDOM 419 mg/dL (74-106); LIPASE 1477 U/L (73-393)
[2017-08-24 17:37] LABS: ACETONE SERUM POSITIVE SMALL 1+ (NEGATIVE)
[2017-08-24] MEDS ORDERED: SODIUM CHLORIDE 1,000 ML IV STA ×3 (17:42→18:57)
[2017-08-24] MEDS ORDERED: CEFTRIAXONE 1 GM in DEXTROSE 5%-WATER - 50 ML IVPB ONE (17:44)
--- NOTE | 2017-08-24 18:37 | HP ---
CHIEF COMPLAINT: PCP: Dr. Richardson HISTORY OF PRESENT ILLNESS: 26 yof with PMHx of IDDM, suspected poor compliance, epilepsy, bipolar disorder , chronic pancreatitis (recurrent admission, ?unclear etiology), fatty liver, sigmoid diverticulosis comes with 2 days of nausea, non bloody non bilious vomiting, followed by epigastric pain, intermittent burning and 3-4 episodes of non bloody non water diarrhea. No fevers, chills, dark or bloody stools, cough, sputum. Reports intermittent dysuria,urinary urgency/frequency for last 3 months. No new flank pain. Currently feels better, reports had some water earlier and did well with the same and asking to eat. ER course was notable for: (1) Ceftriaxone (2) 2L IVF bolus (3) zofran Recent Travel: denies PAST MEDICAL HISTORY: as above PAST SURGICAL HISTORY: Social History: Smokin cig/day x 1 year Alcohol: denies Drugs: denies Lives with her and family Family History: Father of pancreatitis (?alcoholism) Allergies mushroom Allergy (Verified 08/24/17 14:26) No Known Drug Allergies Allergy (Verified 08/24/17 14:26) SEAFOOD Allergy (Severe, Uncoded 08/24/17 14:26) ANAPHYLAXIS HOME MEDICATIONS: Home Medications Medication Instructions Recorded Albuterol Sulfate Inhaler - 1 puff IH Q8H 03/22/16 [Ventolin HFA Inhaler -] clonazePAM [Klonopin -] 0.5 mg PO BID PRN 05/23/16 Acetaminophen [Tylenol .Regular 650 mg PO Q6H PRN #0 tablet 06/10/16 Strength -] Topiramate [Topamax -] 25 mg PO BID #60 tablet 06/10/16 Insulin Aspart Prot/Insuln Asp 50 units SQ BID 08/03/16 [Novolog Mix 70-30 Flexpen Syrn] Atorvastatin Ca [Lipitor] 10 mg PO HS #30 tablet 02/17/17 Quetiapine Fumarate [Seroquel] 100 tab PO HS 02/17/17 Risperidone [Risperdal] 3 mg PO DAILY 02/17/17 levETIRAcetam [Keppra -] 500 mg PO BID 02/17/17 REVIEW OF SYSTEMS CONSTITUTIONAL: Absent: fever, chills, diaphoresis, generalized weakness, malaise, loss of appetite, weight change HEENT: Absent: rhinorrhea, nasal congestion, throat pain, throat swelling, difficulty swallowing, mouth swelling, ear pain, eye pain, visual changes CARDIOVASCULAR: Absent: chest pain, syncope, palpitations, irregular heart rate, lightheadedness , peripheral edema RESPIRATORY: Absent: cough, shortness of breath, dyspnea with exertion, orthopnea, wheezing, stridor, hemoptysis GASTROINTESTINAL: Absent:, abdominal distension, , constipation, melena, hematochezia Positive: nausea, vomiting, diarrhea, epigastric pain GENITOURINARY: Absent: , hematuria, flank pain, genital pain Positive: dysuria, frequency, urgency, hesitancy MUSCULOSKELETAL: Absent: myalgia, arthralgia, joint swelling, neck pain Positive: chronic back pain SKIN: Absent: rash, itching, pallor HEMATOLOGIC/IMMUNOLOGIC: Absent: easy bleeding, easy bruising, lymphadenopathy, frequent infections ENDOCRINE: Absent: unexplained weight gain, unexplained weight loss, heat intolerance, cold intolerance NEUROLOGIC: Absent: headache, focal weakness or paresthesias, dizziness, unsteady gait, seizure, mental status changes, bladder or bowel incontinence PSYCHIATRIC: Absent: anxiety, depression, suicidal or homicidal ideation, hallucinations. PHYSICAL EXAMINATION Vital Signs - 24 hr 08/24/17 14:23 Temperature 98 F Pulse Rate 103 H Respiratory 20 Rate Blood Pressure 121/75 O2 Sat by Pulse 99 Oximetry (%) GENERAL: Awake, alert, and fully oriented, in no acute distress. comfortably ambulating, no distress HEAD: Normal with no signs of trauma. EYES: Pupils equal, round and reactive to light, extraocular movements intact, sclera anicteric, conjunctiva clear. No lid lag. EARS, NOSE, THROAT: Ears normal, nares patent, oropharynx clear without exudates. Moist mucous membranes. NECK: soft, supple no JVD LUNGS: Breath sounds equal, clear to auscultation bilaterally. No wheezes, and no crackles. No accessory muscle use. HEART: S1S2 regular rate rhythm ABDOMEN: Soft, obese, mild epigastric tenderness on deep palpation, no voluntary or involuntary guarding or rigidity, positive bowel sounds MUSCULOSKELETAL: Normal range of motion at all joints. No bony deformities or tenderness. No CVA tenderness. UPPER EXTREMITIES: 2+ pulses, warm, well-perfused. No cyanosis. No clubbing. No peripheral edema. LOWER EXTREMITIES: 2+ pulses, warm, well-perfused. No calf tenderness. No peripheral edema. NEUROLOGICAL: Cranial nerves II-XII intact. Normal speech. Normal gait. PSYCHIATRIC: Cooperative. Good eye contact. Appropriate mood and affect. SKIN: Warm, dry, normal turgor, no rashes or lesions noted, normal capillary refill. Laboratory Results - last 24 hr 08/24/17 08/24/17 08/24/17 15:57 15:58 15:58 WBC 8.1 RBC 4.76 Hgb 14.1 Hct 40.7 MCV 85.4 MCH 29.6 MCHC 34.6 RDW 12.2 Plt Count 202 MPV 8.1 Absolute Neuts (auto) 5.2 Neutrophils % 63.9 D Lymphocytes % 28.4 D Monocytes % 6.3 Eosinophils % 0.6 Basophils % 0.8 Nucleated RBC % 0 Sodium 137 Potassium 4.1 Chloride 102 Carbon Dioxide 28 Anion Gap 7 L BUN 10 Creatinine 0.8 Creat Clearance w eGFR > 60 Random Glucose 419 H* Calcium 8.4 L Magnesium 1.8 Total Bilirubin 0.4 D AST 9 L ALT 19 Alkaline Phosphatase 102 Total Protein 7.8 Albumin 3.2 L Total Amylase 67 Lipase 1477 H Urine Color Ltyellow Urine Appearance Cloudy Urine pH 6.0 Ur Specific Central 1.033 Urine Protein Negative Urine Glucose (UA) 3+ H Urine Ketones 1+ H Urine Blood 1+ H Urine Nitrite Negative Urine Bilirubin Negative Urine Urobilinogen Negative Ur Leukocyte Esterase 3+ H Urine WBC (Auto) 128 Urine RBC (Auto) 25 Ur Epithelial Cells Moderate Urine Bacteria Moderate Acetone, Qual Positive small 1+ H test neg. ASSESSMENT/PLAN: 26 yof with PMHx of IDDM, suspected poor non compliance, Epilepsy, bipolar disorder, asthma, chronic pancreatitis, fatty liver, sigmoid diverticulosis admitted with nausea,v omiting, diarrhe and epigastric pain. -Nausea, vomiting, diarrhea, ?gastroenteritis -Epigastric pain, ?gastritis, from vomiting vs PUD , ?pancreatitis, but already improved symptoms and tolerating PO well in ED -Lower uncomplicated UTI -Hyperglycemia, IDDM -Epilepsy -Bipolar disorder -Fatty liver -Sigmoid diverticulosis Plan: PO clears as tolerated as did well with water in ED and asking for good, hold diet if recurrent pain. Aggressive IV hydration. Zofran prn. Protonix 40 mg IV BID. GI consult. Abdominal US. multiple CTs in the past, avoid repeat imaging unless fails to improve. Ceftriaxone, urine cultures. Levemir 30 mg BID, ISS. Continue keppra/risperidone/seroquel. Unsure if patient on topiramate, patient and deny, confirm in AM with pharmacy. Seizure precautions. DVTPPX with heparin DIspo pending clinical improvement. plan discussed with patient in detail, all questions answered. Total admit time 65 min. Visit type - Emergency Visit Emergency Visit: Yes ED Registration Date: 08/24/17 Care time: The patient presented to the Emergency Department on the above date and was hospitalized for further evaluation of their emergent condition. - New Patient This patient is new to me today: Yes Date on this admission: 08/24/17 - Critical Care Critical Care patient: No Hospitalist Screening - Colonoscopy Questionnaire Colonoscopy Questionnaire: Colonoscopy Questionnaire - Patient: 50 - 75 years old and never had a screening colonoscopy: No History of colon or rectal polyps, or CA: Unknown History of IBD, Crohn's disease or UC: Unknown History of abdominal radiation therapy as a child: Unknown - Relative: 1 with colon or rectal CA, or polyps at age 60 or younger: Unknown Colon or rectal CA diagnosed at age 45 or younger: Unknown Multiple relatives with colon or rectal CA: Unknown - Outcome: Screening Result: Negative Screen
[2017-08-24] MEDS ORDERED: CEFTRIAXONE 1 GM/50 ML BAG ONE (18:47)
[2017-08-24 18:52] LABS: HCG,QUALITATIVE URINE NEGATIVE
[2017-08-24] MEDS ORDERED: QUEtiapine FUMARATE 50 MG TABLET ONE (21:33)
[2017-08-24] MEDS: INSULIN (LEVEMIR) 100 UNITS/ML UNITS SQ SCH (21:43)
[2017-08-24] MEDS ORDERED: QUEtiapine FUMARATE 100 MG TABLET (FP) PO SCH (22:00)
[2017-08-24] MEDS ORDERED: INSULIN SLIDING SCALE (NOVOLOG) 1 VIAL SQ SCH ×2 (22:00→22:50)
[2017-08-24] MEDS ORDERED: risperiDONE 1 MG TABLET (FP) PO SCH (23:00)
[2017-08-24] MEDS: SODIUM CHLORIDE 1,000 ML IV SCH (23:20)
[2017-08-24] MEDS: levETIRAcetam 500 MG TABLET (FP) PO SCH (23:21)
[2017-08-24] MEDS: PANTOPRAZOLE SODIUM 40 MG VIAL IVPUSH SCH (23:22)
[2017-08-24] MEDS: HEPARIN NA (PORCINE) 5,000 UNITS/ML 1ML VIAL SQ SCH (23:22)
[2017-08-25] MEDS: INSULIN SLIDING SCALE (NOVOLOG) 1 VIAL SQ SCH ×3 (06:28→17:06)
[2017-08-25] MEDS: INSULIN (LEVEMIR) 100 UNITS/ML UNITS SQ SCH (06:29)
[2017-08-25] MEDS: HEPARIN NA (PORCINE) 5,000 UNITS/ML 1ML VIAL SQ SCH ×2 (06:31→14:39)
[2017-08-25] MEDS: SODIUM CHLORIDE 1,000 ML IV SCH (06:31)
[2017-08-25] MEDS ORDERED: INSULIN (NOVOLOG) ASPART 100 UNITS/ML 10ML VIAL ONE ×2 (07:21→12:02)
[2017-08-25 08:03] LABS: BASO % 0.8 % (0-2.0); EOS % 1.5 % (0-4.5); HEMATOCRIT 38.5 % (32.4-45.2); HEMOGLOBIN 13.4 GM/dL (10.7-15.3); LYMPH % 40.5 % (8-40); MCH 29.4 pg (25.7-33.7); MCHC 34.9 g/dl (32.0-36.0); MEAN CELL VOLUME 84.4 fl (80-96); MEAN PLT VOLUME 7.8 fl (7.5-11.1); MONO % 8.7 % (3.8-10.2); NEUT % 48.5 % (42.8-82.8); PLATELET COUNT 195 K/MM3 (134-434); RBC 4.57 M/mm3 (3.60-5.2); RDW 12.9 % (11.6-15.6); WHITE BLOOD COUNT 7.4 K/mm3 (4.0-10.0)
[2017-08-25 08:30] LABS: CHLORIDE 108 mmol/L (98-107); POTASSIUM 3.4 mmol/L (3.5-5.1); SODIUM 141 mmol/L (136-145)
[2017-08-25 08:40] LABS: ALBUMIN 2.6 g/dl (3.4-5.0); ALK PHOS 74 U/L (45-117); ANION GAP 8 (8-16); BILIRUBIN,DIRECT < 0.2 mg/dL (0.0-0.2); BILIRUBIN,TOTAL 0.3 mg/dL (0.2-1.0); BLOOD UREA NITROGEN 7 mg/dL (7-18); CALCIUM 8.4 mg/dL (8.5-10.1); CO2 25 mmol/L (21-32); CREATININE 0.4 mg/dL (0.55-1.02); GLUCOSE,RANDOM 169 mg/dL (74-106); SGOT/AST 7 U/L (15-37); SGPT/ALT 13 U/L (12-78); TOT PROT 6.4 g/dl (6.4-8.2)
[2017-08-25 08:50] LABS: LIPASE 664 U/L (73-393)
[2017-08-25] MEDS ORDERED: DEXTROSE 5%-WATER - 50 ML IVPB ONE (09:49)
[2017-08-25] MEDS ORDERED: cefTRIAXone SODIUM 1 GM VIAL ONE (09:49)
[2017-08-25] MEDS ORDERED: CEFTRIAXONE 1 GM in DEXTROSE 5%-WATER - 50 ML IVPB SCH (10:00)
[2017-08-25] MEDS ORDERED: risperiDONE 1 MG TABLET (FP) PO SCH (10:00)
[2017-08-25] MEDS: levETIRAcetam 500 MG TABLET (FP) PO SCH (10:03)
[2017-08-25] MEDS: PANTOPRAZOLE SODIUM 40 MG VIAL IVPUSH SCH (10:03)
[2017-08-25 10:08] LABS: INR 0.96 (0.82-1.09); PROTHROMBIN TIME (PATIENT) 10.9 SEC (9.7-13.0)
--- NOTE | 2017-08-25 13:20 | CON.GI ---
Consult Consult Specialty:: Gastroenterology ( covering for Dr Martinez) Referred by:: Dr Staley Reason for Consultation:: Pancreatitis - History of Present Illness Chief Complaint: Abdominal pain History of Present Illness: 26F with Bipolar disorder and diabetes mellitus presents with N/V, abdominal pain and diarrhea. She presented earlier in the week with similar complaints but signed out AMA. I saw her in consultation in 08/01 for similar complaints. She had previously been followed by Dr Pang but was dismissed form that practice for noncompliance. She had an EGD and colonoscopy with him but cannot recall the findings. She has a series of similar presentation with elevated lipases but normal amylases during which imaging that included MRI failed to reveal pancreatic inflammation, pancreas divisum or gallstone disease. No pancreatic calcifications have been found. She denies steatorrhea. She does not have hypertriglyceridemia. Her Igg4 was normal in 2016. Her diabetes is poorly controlled. During my last consultation she admitted to drinking Seagrams 7 but now tells me that she drinks vodka but only very rarely. She tells me that she has not had vodka in months. She has never been found to have alcohol in her blood on previous visits. 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: Seizure Pulmonary: Yes: Asthma Gastrointestinal: Yes: Diverticulosis, Pancreatitis (recurring abdominal pain hospitalizations with elevated lipases and normal amylases attributed to pancreatitis) Hepatobiliary: Yes: Other (fatty liver) ...LMP: 02/17/17 Psych: Yes: Bipolar Endocrine: Yes: Diabetes Mellitus (poorly controlled), Hypothyroidism - Past Surgical History Past Surgical History: Yes: Colonoscopy, Upper Endoscopy - Alcohol/Substance Use Hx Alcohol Use: Yes (rare vodka) History of Substance Use: reports: None - Smoking History Smoking history: Never smoked Have you smoked in the past 12 months: No Aproximately how many cigarettes per day: 0 If you are a former smoker, when did you quit?: 2011 - Social History Usual Living Arrangement: With Parent ADL: Independent Occupation: unemployed Place of : [facility] History of Recent Travel: No Home Medications - Allergies Allergies/Adverse Reactions: Allergies Allergy/AdvReac Type Severity Reaction Status Date / Time mushroom Allergy Verified 08/24/17 14:26 No Known Drug Allergies Allergy Verified 08/24/17 14:26 SEAFOOD Allergy Severe ANAPHYLAXIS Uncoded 08/24/17 14:26 - Home Medications Home Medications: Ambulatory Orders Albuterol Sulfate Inhaler - [Ventolin HFA Inhaler -] 1 puff IH Q8H 03/22/16 clonazePAM [Klonopin -] 0.5 mg PO BID PRN 05/23/16 Acetaminophen [Tylenol .Regular Strength -] 650 mg PO Q6H PRN #0 tablet Topiramate [Topamax -] 25 mg PO BID #60 tablet 06/10/16 Insulin Aspart Prot/Insuln Asp [Novolog Mix 70-30 Flexpen Syrn] 50 units SQ BID 08/03/16 Atorvastatin Ca [Lipitor] 10 mg PO HS #30 tablet 02/17/17 Quetiapine Fumarate [Seroquel] 100 tab PO HS 02/17/17 Risperidone [Risperdal] 3 mg PO DAILY 02/17/17 levETIRAcetam [Keppra -] 500 mg PO BID 02/17/17 Family Disease History - Family Disease History Family Disease History: Heart Disease: Mother (OK in her 30's), Other: Father ( of pancreatitis, alcoholic) Review of Systems - Review of Systems Constitutional: reports: Weakness Eyes: reports: No Symptoms HENT: reports: No Symptoms Neck: reports: No Symptoms Cardiovascular: reports: No Symptoms Respiratory: reports: Exercise Intolerance Gastrointestinal: reports: Bloating, Diarrhea, Nausea, Vomiting Physical Exam-GI Vital Signs: Vital Signs Temperature 98.4 F 08/25/17 10:00 Pulse Rate 84 08/25/17 10:00 Respiratory Rate 20 08/25/17 10:00 Blood Pressure 98/56 08/25/17 10:00 O2 Sat by Pulse Oximetry (%) 98 08/25/17 09:00 CBC,CMP WBC 7.4 K/mm3 (4.0-10.0) 08/25/17 07:00 RBC 4.57 M/mm3 (3.60-5.2) 08/25/17 07:00 Hgb 13.4 GM/dL (10.7-15.3) 08/25/17 07:00 Hct 38.5 % (32.4-45.2) 08/25/17 07:00 MCV 84.4 fl (80-96) 08/25/17 07:00 MCH 29.4 pg (25.7-33.7) 08/25/17 07:00 MCHC 34.9 g/dl (32.0-36.0) 08/25/17 07:00 RDW 12.9 % (11.6-15.6) 08/25/17 07:00 Plt Count 195 K/MM3 (134-434) 08/25/17 07:00 MPV 7.8 fl (7.5-11.1) 08/25/17 07:00 Absolute Neuts (auto) 3.6 # 08/25/17 07:00 Neutrophils % 48.5 % (42.8-82.8) D 08/25/17 07:00 Lymphocytes % 40.5 % (8-40) H D 08/25/17 07:00 Monocytes % 8.7 % (3.8-10.2) 08/25/17 07:00 Eosinophils % 1.5 % (0-4.5) D 08/25/17 07:00 Basophils % 0.8 % (0-2.0) 08/25/17 07:00 Nucleated RBC % 0 % (0-0) 08/25/17 07:00 Sodium 141 mmol/L (136-145) 08/25/17 07:00 Potassium 3.4 mmol/L (3.5-5.1) L 08/25/17 07:00 Chloride 108 mmol/L (98-107) H 08/25/17 07:00 Carbon Dioxide 25 mmol/L (21-32) 08/25/17 07:00 Anion Gap 8 (8-16) 08/25/17 07:00 BUN 7 mg/dL (7-18) 08/25/17 07:00 Creatinine 0.4 mg/dL (0.55-1.02) L 08/25/17 07:00 Creat Clearance w eGFR > 60 (>60) 08/24/17 15:58 POC Glucometer 208 UNITS (80-120) 08/25/17 11:51 Random Glucose 169 mg/dL (74-106) H 08/25/17 07:00 Calcium 8.4 mg/dL (8.5-10.1) L 08/25/17 07:00 Magnesium 1.8 mg/dL (1.8-2.4) 08/24/17 15:58 Total Bilirubin 0.3 mg/dL (0.2-1.0) D 08/25/17 07:00 Direct Bilirubin < 0.2 mg/dL (0.0-0.2) 08/25/17 07:00 AST 7 U/L (15-37) L 08/25/17 07:00 ALT 13 U/L (12-78) 08/25/17 07:00 Alkaline Phosphatase 74 U/L (45-117) 08/25/17 07:00 Total Protein 6.4 g/dl (6.4-8.2) 08/25/17 07:00 Albumin 2.6 g/dl (3.4-5.0) L 08/25/17 07:00 Total Amylase 67 U/L (25-115) 08/24/17 15:58 Lipase 664 U/L (73-393) H 08/25/17 07:00 Current Medications Generic Name Dose Route Start Last Admin Trade Name Freq PRN Reason Stop Dose Admin Heparin Sodium (Porcine) 5,000 unit 08/24/17 22:00 08/25/17 06:31 Heparin - SQ Not Given TID KASIA Ceftriaxone Sodium 1 gm/ 50 mls @ 100 mls/hr 08/25/17 10:00 08/25/17 10:01 Dextrose IVPB 100 mls/hr DAILY KASIA Administration Sodium Chloride 1,000 mls @ 150 mls/hr 08/24/17 20:00 08/25/17 06:31 Normal Saline - IV 150 mls/hr ASDIR KASIA Administration Insulin Aspart 1 vial 08/24/17 22:50 08/25/17 12:04 Novolog Vial Sliding Scale - SQ 6 units ACHS KASIA Administration Protocol Insulin Detemir 30 units 08/24/17 22:00 08/25/17 06:29 Levemir Vial SQ 30 unit BID@0700,2200 KASIA Administration Levetiracetam 500 mg 08/24/17 22:00 08/25/17 10:03 Keppra - PO 500 mg BID KASIA Administration Pantoprazole Sodium 40 mg 08/24/17 22:00 08/25/17 10:03 Protonix Iv IVPUSH 40 mg BID KASIA Administration Quetiapine Fumarate 100 mg 08/24/17 22:00 08/24/17 23:22 Seroquel - PO 100 mg HS KASIA Administration Risperidone 3 mg 08/24/17 23:00 08/24/17 23:23 Risperdal - PO 3 mg HS KASIA Administration Constitutional: Yes: No Distress Eyes: Yes: Conjunctiva Clear HENT: Yes: Normocephalic Neck: Yes: Supple Cardiovascular: Yes: Regular Rate and Rhythm Respiratory: Yes: CTA Bilaterally Gastrointestinal Inspection: Yes: Distention ...Auscultate: Yes: Normoactive Bowel Sounds ...Palpate: Yes: Soft, Other (nontender) ...Percussion: Yes: Tympanitic ...Rectal Exam: Yes: Deferred (patient declines) Edema: No Neurological: Yes: Alert, Oriented Labs: CBC, BMP 08/25/17 07:00 08/25/17 07:00 INR, PTT INR 0.96 (0.82-1.09) 08/25/17 07:00 Laboratory Tests 07/08/13 07/09/13 05/06/14 11:56 10:32 16:30 Hemoglobin A1c % 14.5 H* Triglycerides Total Amylase 33 51 D Lipase 139 IgG4 07/02/14 07/03/14 08/11/14 16:00 11:40 07:45 Hemoglobin A1c % 14.7 H D Triglycerides Total Amylase 69 D Lipase 1313 H 4427 H IgG4 09/26/14 09/27/14 10/01/14 12:10 07:45 10:15 Hemoglobin A1c % Triglycerides Total Amylase Lipase 1242 H 154 1091 H IgG4 10/02/14 11/11/14 12/06/14 08:45 13:17 06:00 Hemoglobin A1c % Triglycerides Total Amylase 68 40 Lipase 1487 H IgG4 12/10/14 12/19/14 02/27/15 13:44 14:40 12:42 Hemoglobin A1c % Triglycerides Total Amylase Lipase 268 690 H 1020 H IgG4 03/04/15 03/06/15 08/23/15 12:36 20:00 10:02 Hemoglobin A1c % Triglycerides Total Amylase Lipase 642 H 272 1091 H IgG4 08/24/15 01/21/16 01/21/16 06:00 11:25 14:49 Hemoglobin A1c % Triglycerides Total Amylase 73 D Lipase 143 1436 H IgG4 01/21/16 01/22/16 01/22/16 14:49 06:00 06:00 Hemoglobin A1c % 12.1 H D Triglycerides Total Amylase Lipase 392 IgG4 77 06/07/16 06/08/16 06/24/16 15:38 06:30 19:33 Hemoglobin A1c % Triglycerides Total Amylase 41 D Lipase 3805 H 549 H IgG4 02/17/17 02/17/17 04/23/17 06:00 06:00 21:14 Hemoglobin A1c % Triglycerides 181 H D Total Amylase 67 Lipase 176 IgG4 08/24/17 08/25/17 15:58 07:00 Hemoglobin A1c % Triglycerides Total Amylase 67 Lipase 1477 H 664 H IgG4 Laboratory Tests 05/18/15 01/21/16 04/12/16 12:03 14:49 16:06 Alcohol, Quantitative < 5.0 < 5.0 < 5.0 Imaging - Results Ultrasound: Report Reviewed (Jordy Mera Name: [facility] DEPARTMENT OF RADIOLOGY Phys: Danelle Miller NP : 1990 Age: 26 Sex: F [facility] Acct: [id number] [facility] Exam Date: 08/24/17 Status: [place] [address] Unit Number: [id number] EXAM#: TYPE/EXAM : RESULT: [id number] US/ABDOMEN US -LIMITED Indication: Evaluate for pancreatitis. Technique: Real-time grayscale and color Doppler sonogram of the right upper quadrant of the abdomen was performed with the technologist. Images are submitted for review. Comparison: 02/16/2017 right upper quadrant sonogram. Findings: The liver measures 17.5 cm in length with normal hepatic echotexture. No discrete hepatic mass identified. The portal vein is patent, where imaged, with hepatopedal flow. The gallbladder is not pathologically distended. No evidence of cholelithiasis, gallbladder wall thickening or pericholecystic fluid. There is no evidence of intrahepatic or extrahepatic biliary ductal dilatation. The proximal common bile duct measures 2 mm in diameter. There is relative hypoechogenicity in the pancreatic body and tail, however, this may be artifactual due to shadowing bowel gas. The right kidney measures 13.8 cm in length with normal cortical echotexture and no hydronephrosis. The upper abdominal aorta and upper IVC are grossly unremarkable, where imaged. No free fluid identified in the right upper quadrant of the abdomen. Impression: 1. Relative heterogeneous hypoechogenicity of the pancreatic body and tail may be artifactual due to shadowing bowel gas, however, pancreatitis is not excluded. Clinical correlation with pancreatic enzymes is recommended. 2. No evidence of cholelithiasis, acute cholecystitis or biliary ductal dilatation. Reported By: Osmin Ayala DO 08/25/17 1149 Technologist: Mary Loja Transcribed Date/Time: 08/25/17 1149 Salvage Laborer: Osmin Ayala DO Printed Date/Time: By: Signed by: Osmin Ayala Signed on: 11:50) Problem List - Problems (1) Abdominal pain Assessment/Plan: The rapid resolution of symptoms is more consistent with a viral gastroenteritis than pancreatitis. Will advance diet and stop analgesics. If tolerated I have no GI objections to discharge. Dr Martinez will return tomorrow. Will order stool for fat and elastase to see whether there is component of pancreatic insufficiency. Code(s): R10.9 - UNSPECIFIED ABDOMINAL PAIN (2) Diarrhea Code(s): R19.7 - DIARRHEA, UNSPECIFIED (3) Elevated lipase Code(s): R74.8 - ABNORMAL LEVELS OF OTHER SERUM ENZYMES (4) Nausea and vomiting Code(s): R11.2 - NAUSEA WITH VOMITING, UNSPECIFIED (5) Chronic pancreatitis Code(s): K86.1 - OTHER CHRONIC PANCREATITIS
[2017-08-25] MEDS ORDERED: POTASSIUM CHLORIDE ORAL LIQUID 20 MEQ/15 ML PO ONE (14:22)
--- NOTE | 2017-08-25 14:22 | PN ---
Progress Note, Physician Chief Complaint: Abdominal pain Nausea/Vomiting History of Present Illness: NAD, in bed abdominal pain/N/V resolved Seen by GI Tolerating clear liquids well on IVF - Current Medication List Current Medications: Active Medications Heparin Sodium (Porcine) (Heparin -) 5,000 unit SQ TID [facility] Last Admin: 08/25/17 06:31 Dose: Not Given Ceftriaxone Sodium 1 gm/ (Dextrose) 50 mls @ 100 mls/hr IVPB DAILY [facility] Last Admin: 08/25/17 10:01 Dose: 100 mls/hr Sodium Chloride (Normal Saline -) 1,000 mls @ 150 mls/hr IV ASDIR [facility] Last Admin: 08/25/17 06:31 Dose: 150 mls/hr Insulin Aspart (Novolog Vial Sliding Scale -) 1 vial SQ ACHS [facility]; Protocol Last Admin: 08/25/17 12:04 Dose: 6 units Insulin Detemir (Levemir Vial) 30 units SQ BID@0700,2200 [facility] Last Admin: 08/25/17 06:29 Dose: 30 unit Levetiracetam (Keppra -) 500 mg PO BID [facility] Last Admin: 08/25/17 10:03 Dose: 500 mg Pantoprazole Sodium (Protonix -) 40 mg PO DAILY [facility] Quetiapine Fumarate (Seroquel -) 100 mg PO HS [facility] Last Admin: 08/24/17 23:22 Dose: 100 mg Risperidone (Risperdal -) 3 mg PO HS [facility] Last Admin: 08/24/17 23:23 Dose: 3 mg - Objective Vital Signs: Vital Signs Temperature 98.4 F 08/25/17 10:00 Pulse Rate 84 08/25/17 10:00 Respiratory Rate 20 08/25/17 10:00 Blood Pressure 98/56 08/25/17 10:00 O2 Sat by Pulse Oximetry (%) 98 08/25/17 09:00 Constitutional: Yes: Well Nourished, No Distress, Calm Cardiovascular: Yes: Regular Rate and Rhythm Respiratory: Yes: Regular Gastrointestinal: Yes: Normal Bowel Sounds, Soft, Abdomen, Obese Musculoskeletal: Yes: WNL Extremities: Yes: WNL Edema: No Peripheral Pulses WNL: Yes Neurological: Yes: Alert, Oriented Psychiatric: Yes: Alert, Oriented Labs: CBC, BMP 08/25/17 07:00 08/25/17 07:00 INR, PTT INR 0.96 (0.82-1.09) 08/25/17 07:00 Problem List - Problems (1) Abdominal pain Assessment/Plan: resolved -Advance diet Code(s): R10.9 - UNSPECIFIED ABDOMINAL PAIN (2) Nausea and vomiting Assessment/Plan: -resolved -IVF -Zofran PRN -Advance diet Code(s): R11.2 - NAUSEA WITH VOMITING, UNSPECIFIED (3) Diabetes mellitus, insulin dependent (IDDM), uncontrolled Assessment/Plan: -BGM -Diabetic diet -Insulin coverage -RD consult Code(s): E10.65 - TYPE 1 DIABETES MELLITUS WITH HYPERGLYCEMIA Qualifiers: Diabetes mellitus complication status: with hyperglycemia Qualified Code(s) : E10.65 - Type 1 diabetes mellitus with hyperglycemia (4) Hypokalemia Assessment/Plan: 2/2 to decreassed PO intake -KCl 40 meq once -repeat BMP in AM Code(s): E87.6 - HYPOKALEMIA Assessment/Plan see problem list If tolerating PO intake, D/C home in AM
--- NOTE | 2017-08-25 20:27 | HOSP ---
Subjective - Review of Symptoms Events since last encounter: Hospitalist Encounter Notified by RN, that the patient is requesting to leave against medical advice. Subjective: Arrived to bedside, patient is alert, awake and oriented sitting at bedside eating a sandwich. Patient requests to leave without further medical care. Patient reports feeling better, not having abdominal pain or N/V. Risks and Dangers explained to patient Organ Failure, GI Bleeding, necrosis, abscess, Patient advised to FU with her PCP, INR check in 1 week Patient verbalized understanding Physical Examination Vital Signs: Vital Signs Temperature 98.3 F 08/25/17 18:34 Pulse Rate 76 08/25/17 18:34 Respiratory Rate 20 08/25/17 18:34 Blood Pressure 115/66 08/25/17 18:34 O2 Sat by Pulse Oximetry (%) 98 08/25/17 09:00 Constitutional: Yes: Well Nourished, No Distress, Obese Eyes: Yes: WNL, Conjunctiva Clear, EOM Intact, PERRL HENT: Yes: WNL, Atraumatic, Normocephalic Neck: Yes: WNL, Supple, Trachea Midline Cardiovascular: Yes: WNL, Regular Rate and Rhythm, S1, S2 Respiratory: Yes: WNL, Regular, CTA Bilaterally Gastrointestinal: Yes: WNL, Normal Bowel Sounds, Soft, Abdomen, Obese. No: Tenderness, Tenderness, Epigastrium, Tenderness, Rebound, Vomiting Neurological: Yes: WNL, Alert, Oriented, Cran Nerves II-XII Intact ...Motor Strength: WNL Psychiatric: Yes: WNL, Alert, Oriented Labs: CBC, BMP 08/25/17 07:00 08/25/17 07:00 Laboratory Results - last 24 hr 08/24/17 08/25/17 08/25/17 21:39 02:09 06:26 WBC RBC Hgb Hct MCV MCH MCHC RDW Plt Count MPV Absolute Neuts (auto) Neutrophils % Lymphocytes % Monocytes % Eosinophils % Basophils % Nucleated RBC % PT with INR INR Sodium Potassium Chloride Carbon Dioxide Anion Gap BUN Creatinine POC Glucometer 448 223 165 Random Glucose Calcium Total Bilirubin Direct Bilirubin AST ALT Alkaline Phosphatase Total Protein Albumin Lipase 08/25/17 08/25/17 08/25/17 07:00 07:00 07:00 WBC 7.4 RBC 4.57 Hgb 13.4 Hct 38.5 MCV 84.4 MCH 29.4 MCHC 34.9 RDW 12.9 Plt Count 195 MPV 7.8 Absolute Neuts (auto) 3.6 Neutrophils % 48.5 D Lymphocytes % 40.5 H D Monocytes % 8.7 Eosinophils % 1.5 D Basophils % 0.8 Nucleated RBC % 0 PT with INR 10.90 INR 0.96 Sodium 141 Potassium 3.4 L Chloride 108 H Carbon Dioxide 25 Anion Gap 8 BUN 7 Creatinine 0.4 L POC Glucometer Random Glucose 169 H Calcium 8.4 L Total Bilirubin 0.3 D Direct Bilirubin < 0.2 AST 7 L ALT 13 Alkaline Phosphatase 74 Total Protein 6.4 Albumin 2.6 L Lipase 664 H 08/25/17 08/25/17 11:51 16:49 WBC RBC Hgb Hct MCV MCH MCHC RDW Plt Count MPV Absolute Neuts (auto) Neutrophils % Lymphocytes % Monocytes % Eosinophils % Basophils % Nucleated RBC % PT with INR INR Sodium Potassium Chloride Carbon Dioxide Anion Gap BUN Creatinine POC Glucometer 208 277 Random Glucose Calcium Total Bilirubin Direct Bilirubin AST ALT Alkaline Phosphatase Total Protein Albumin Lipase Last Vital Signs Temp Pulse Resp BP Pulse Ox 98.3 F 76 20 115/66 98 08/25/17 18:34 08/25/17 18:34 08/25/17 18:34 08/25/17 18:34 08/25/17 09:00
[2017-08-25 22:44] VITALS: BP 121/64; PULSE 70; TEMP 98.2
[2017-08-26] MEDS ORDERED: PANTOPRAZOLE 40 MG TABLET (FP) PO SCH (10:00)
== END 2017-08-25 20:20 | disposition left against medical advice (07) | DRG 392 ==
LOC: JER 14:22 → JERBED 18:06 → J5S 21:27
PROVIDERS: ADMIT Family Medicine; ATTEND Family Medicine
DX: A08.4 Viral intestinal infection, unspecified (principal); K86.1 Other chronic pancreatitis; N39.0 Urinary tract infection, site not specified; G40.909 Epilepsy, unspecified, not intractable, without status epilepticus; F31.9 Bipolar disorder, unspecified; K76.0 Fatty (change of) liver, not elsewhere classified; Z79.4 Long term (current) use of insulin; E11.65 Type 2 diabetes mellitus with hyperglycemia; E87.6 Hypokalemia; E66.9 Obesity, unspecified; Z68.37 Body mass index [BMI] 37.0-37.9, adult
CPT/HCPCS: 36415; 76705-TC; 80048; 80053; 80076; 81003; 81015; 82009; 82150; 82962; 83690; 83735; 84703; 85025; 85610; 87086; 87186; 99285-25; J2794; J7030

== ENCOUNTER 2017-09-08 16:14 | Emergency (ER) | payer OTHER ==
[2017-09-08 16:18] VITALS: BP 122/70; PULSE 100; TEMP 97.9; BMI 37.7
[2017-09-08] MEDS ORDERED: SODIUM CHLORIDE 1,000 ML IV STA (17:40)
[2017-09-08] MEDS ORDERED: PANTOPRAZOLE SODIUM 40 MG in SODIUM CHLORIDE 100 ML IVPB ONE (17:40)
[2017-09-08] MEDS ORDERED: ONDANSETRON 4 MG/2 ML VIAL IVPB ONE (17:40)
[2017-09-08] MEDS ORDERED: ACETAMINOPHEN 1000 MG/100 ML VIAL (NON FORMULARY) IVPB ONE (17:46)
--- NOTE | 2017-09-08 17:53 | PDOC ---
History of Present Illness - General Chief Complaint: Pain, Acute Stated Complaint: EPIGASTRIC PAIN Time Seen by Provider: 09/08/17 17:32 - History of Present Illness Initial Comments: 09/08/17 17:50 "Patient is a 26 year old female with a past medical history of IDDM, epilepsy, bipolar disorder, anxiety, panic attacks, asthma, low K+, low blood pressure, chronic pancreatitis (unclear etiology), fatty liver, sigmoid diverticulosis who presents today for 3 days of epigastric pain. Endorses nausea without vomiting. States the pain is intermittent, mid-epigastric, exacerbated by eating. She states that it feels like her previous episodes of pancreatitis. At time of interview, pt states that the pain has resolved completely. Denies vomit, fevers, chills, cough, diarrhea, constipation, melena, hematochezia. Surgical Hx: denies Social Hx: denies EtOH use Past History - Past Medical History Allergies/Adverse Reactions: Allergies Allergy/AdvReac Type Severity Reaction Status Date / Time mushroom Allergy Verified 09/08/17 16:15 No Known Drug Allergies Allergy Verified 09/08/17 16:15 SEAFOOD Allergy Severe ANAPHYLAXIS Uncoded 09/08/17 16:15 Home Medications: Ambulatory Orders Albuterol Sulfate Inhaler - [Ventolin HFA Inhaler -] 1 puff IH Q8H 03/22/16 clonazePAM [Klonopin -] 0.5 mg PO BID PRN 05/23/16 Acetaminophen [Tylenol .Regular Strength -] 650 mg PO Q6H PRN #0 tablet Topiramate [Topamax -] 25 mg PO BID #60 tablet 06/10/16 Insulin Aspart Prot/Insuln Asp [Novolog Mix 70-30 Flexpen Syrn] 50 units SQ BID 08/03/16 Atorvastatin Ca [Lipitor] 10 mg PO HS #30 tablet 02/17/17 Quetiapine Fumarate [Seroquel] 100 tab PO HS 02/17/17 Risperidone [Risperdal] 3 mg PO DAILY 02/17/17 levETIRAcetam [Keppra -] 500 mg PO BID 02/17/17 Anemia: No Asthma: Yes Cancer: No Cardiac Disorders: Yes (RAPID HEARTBEAT HX) CVA: No COPD: No CHF: Yes Dementia: No Diabetes: Yes GI Disorders: Yes (h/o PANCREATITIS.) Disorders: No HTN: (LOW BP) Hypercholesterolemia: No Liver Disease: No Psychiatric Problems: Yes (anxiety, bipolar) Seizures: Yes Thyroid Disease: Yes - Surgical History Abdominal Surgery: No Appendectomy: No Cardiac Surgery: No Cholecystectomy: No Lung Surgery: No Neurologic Surgery: No Orthopedic Surgery: No - Family Disease History Family Disease History: Heart Disease: Grandparents - Reproductive History (#): 1 Para: 0 Cervical CA: No Dysfunctional Uterine Bleeding: No Ectopic : No Endometrial CA: No Polycystic Ovaries: No Therapeutic (s) & number: No Tubal Ligation: No Spontaneous : 1 - Immunization History Immunization Up to Date: Yes - Suicide/Smoking/Psychosocial Hx Smoking Status: Yes Smoking History: Former smoker Have you smoked in the past 12 months: No Number of Cigarettes Smoked Daily: 0 If you are a former smoker, when did you quit?: 2011 Information on smoking cessation initiated: No 'Breaking Loose' booklet given: 03/11/12 Hx Alcohol Use: No Drug/Substance Use Hx: No Substance Use Type: None Hx Substance Use Treatment: No Abd/GI Specific PMHX - Complaint Specific PMHX Pancreatitis: Yes Review of Systems - Review of Systems Comments:: 09/08/17 17:51 """GENERAL/CONSTITUTIONAL: No fever or chills. No weakness. HEAD, EYES, EARS, NOSE AND THROAT: No change in vision. No ear pain or discharge. No sore throat. CARDIOVASCULAR: No chest pain or shortness of breath. RESPIRATORY: No cough, wheezing, or hemoptysis. GASTROINTESTINAL: +epigastric pain, +nausea, no vomiting, diarrhea or constipation. GENITOURINARY: No dysuria, frequency, or change in urination. MUSCULOSKELETAL: No joint or muscle swelling or pain. No neck or back pain. SKIN: No rash NEUROLOGIC: No headache, vertigo, loss of consciousness, or change in strength/ sensation. ENDOCRINE: No increased thirst. No abnormal weight change. HEMATOLOGIC/LYMPHATIC: No anemia, easy bleeding, or history of blood clots. ALLERGIC/IMMUNOLOGIC: No hives or skin allergy. """ *Physical Exam - Vital Signs Last Vital Signs Temp Pulse Resp BP Pulse Ox 97.9 F 100 H 16 122/70 98 09/08/17 16:15 09/08/17 16:15 09/08/17 16:15 09/08/17 16:15 09/08/17 16:15 - Physical Exam Comments: 09/08/17 17:51 """GENERAL: Awake, alert, and fully oriented, in no acute distress. HEAD: No signs of trauma EYES: PERRLA, EOMI, sclera anicteric, conjunctiva clear ENT: Auricles normal inspection, hearing grossly normal, nares patent, oropharynx clear without exudates. Moist mucosa NECK: Nontender, no stepoffs, Normal ROM, supple, no lymphadenopathy, JVD, or masses LUNGS: Breath sounds equal, clear to auscultation bilaterally. No wheezes, and no crackles HEART: Regular rate and rhythm, normal S1 and S2, no murmurs, rubs or gallops ABDOMEN: Soft, nontender. No guarding, no rebound. No masses EXTREMITIES: Normal range of motion, no edema. No clubbing or cyanosis. No cords, erythema, or tenderness NEUROLOGICAL: Cranial nerves II through XII intact. 5/5 strength and sensation in all extremities, Normal speech, normal gait, normal cerebellar function SKIN: Warm, Dry, normal turgor, no rashes or lesions noted. Medical Decision Making - Medical Decision Making 09/08/17 17:52 26 F with intermittent epigastric pain. Possible pancreatitis flare, though pt with benign abdomen. Pt with negative ayala's, had US earlier this month for similar presentation that showed no gallstones, no cholecystitis. Pt well appearing in ED. Low suspicion for acute intraabdominal process. - Labs, lipase - IVF, GI cocktail 09/08/17 18:39 Pt now stating that she does not wish to have any labwork or tests done. Pt refusing meds, stating that she feels well. Abdominal exam at this time continues to be nontender. I have low suspicion for any acute intraabdominal process. Pt tolerating PO. Very unlikely to have acute pancreatitis or other emergency. Repeat HR at this time 80. (Unable to enter into [facility] due to downtime) *DC/Admit/Observation/Transfer Diagnosis at time of Disposition: Abdominal pain - Discharge Dispostion Disposition: HOME - Referrals - Patient Instructions Printed Discharge Instructions: DI for Abdominal Pain-Adult Additional Instructions: Follow up with your GI doctor within 1 week. Return to the ER immediately if you experience worsening pain, vomiting, fevers , or any other concerning symptoms. - Post Discharge Activity - Attestations Physician Attestion: 09/08/17 18:42 I, Dr. Yasir Leger MD, attest that this document has been prepared under my direction and personally reviewed by me in its entirety. I further attest, that it accurately reflects all work, treatment, procedures and medical decision -making performed by me.
[2017-09-08] MEDS ORDERED: ACETAMINOPHEN INJECTION 100 ML IVPB ONE (18:26)
[2017-09-08] MEDS ORDERED: ONDANSETRON 4 MG/2 ML VIAL ONE (18:26)
[2017-09-08] MEDS ORDERED: PANTOPRAZOLE SODIUM 40 MG/100 ML BAG IVPB ONE (18:26)
== END 2017-09-08 18:45 | disposition home or self-care (01) ==
LOC: JER 16:14
DX: R10.84 Generalized abdominal pain (principal); E10.9 Type 1 diabetes mellitus without complications; Z79.4 Long term (current) use of insulin; G40.909 Epilepsy, unspecified, not intractable, without status epilepticus; F31.9 Bipolar disorder, unspecified; F41.0 Panic disorder [episodic paroxysmal anxiety]; F41.9 Anxiety disorder, unspecified; J45.909 Unspecified asthma, uncomplicated; I95.9 Hypotension, unspecified; K86.1 Other chronic pancreatitis; I50.9 Heart failure, unspecified; Z87.891 Personal history of nicotine dependence
CPT/HCPCS: 36415; 99283-25

== ENCOUNTER 2017-10-04 15:15 | Emergency (ER) | payer OTHER ==
[2017-10-04 15:45] VITALS: BP 119/70; PULSE 88; TEMP 98.4; BMI 37.7
--- NOTE | 2017-10-04 15:46 | PDOC ---
Rapid Medical Evaluation Time Seen by Provider: 10/04/17 15:40 Medical Evaluation: Allergies Allergy/AdvReac Type Severity Reaction Status Date / Time mushroom Allergy Verified 09/08/17 16:15 No Known Drug Allergies Allergy Verified 09/08/17 16:15 SEAFOOD Allergy Severe ANAPHYLAXIS Uncoded 09/08/17 16:15 10/04/17 15:41 Pt presents with PMH of pancreatitits to the ED with 3 days of abdominal pain. Pt states the pain is in the upper middle portion of her stomach and it radiates to her back. LMP was in June. States this feels like her pancreatitis. Exam: TTP of the epigastric region, AAOx3, ambulatory. Orders: Labs, urine, Upreg Pt to be evaluated in the ED. Discharge Disposition - Diagnosis Abdominal pain - Referrals - Patient Instructions - Post Discharge Activity
[2017-10-04 16:53] LABS: BASO % 0.8 % (0-2.0); EOS % 0.6 % (0-4.5); HEMATOCRIT 39.4 % (32.4-45.2); HEMOGLOBIN 13.3 GM/dL (10.7-15.3); LYMPH % 33.4 % (8-40); MCH 29.4 pg (25.7-33.7); MCHC 33.7 g/dl (32.0-36.0); MEAN CELL VOLUME 87.1 fl (80-96); MEAN PLT VOLUME 8.2 fl (7.5-11.1); MONO % 7.3 % (3.8-10.2); NEUT % 57.9 % (42.8-82.8); PLATELET COUNT 189 K/MM3 (134-434); RBC 4.52 M/mm3 (3.60-5.2); RDW 12.8 % (11.6-15.6); WHITE BLOOD COUNT 7.8 K/mm3 (4.0-10.0)
[2017-10-04 17:05] LABS: INR 0.96 (0.82-1.09); PROTHROMBIN TIME (PATIENT) 10.9 SEC (9.7-13.0)
[2017-10-04 17:15] LABS: ANION GAP 10 (8-16); BILIRUBIN,TOTAL 0.3 mg/dL (0.2-1.0); BLOOD UREA NITROGEN 6 mg/dL (7-18); CALCIUM 8.8 mg/dL (8.5-10.1); CHLORIDE 103 mmol/L (98-107); CO2 22 mmol/L (21-32); CREATININE 0.9 mg/dL (0.55-1.02); POTASSIUM 4.3 mmol/L (3.5-5.1); SGOT/AST 5 U/L (15-37); SGPT/ALT 12 U/L (12-78); SODIUM 135 mmol/L (136-145)
[2017-10-04 17:16] LABS: ALK PHOS 99 U/L (45-117)
[2017-10-04 17:17] LABS: HCG,QUALITATIVE URINE NEGATIVE
[2017-10-04 17:20] LABS: GLUCOSE,RANDOM 520 mg/dL (74-106)
[2017-10-04 18:39] LABS: URINE APPEARANCE CLOUDY; URINE BILIRUBIN NEGATIVE (<2.0 mg/dL); URINE COLOR STRAW; URINE GLUCOSE (UA) 3+ (NEGATIVE); URINE KETONE NEGATIVE (NEGATIVE); URINE NITRITE NEGATIVE (NEGATIVE); URINE PROTEIN NEGATIVE (NEGATIVE); URINE UROBILINOGEN NEGATIVE mg/dL (0.2-1.0)
[2017-10-04 18:48] LABS: URINE LEUK ESTERASE 3+ (NEGATIVE)
[2017-10-04 18:50] LABS: EPI CELLS RARE /HPF (FEW); URINE MUCUS RARE
--- NOTE | 2017-10-04 19:12 | PDOC ---
History of Present Illness - General Chief Complaint: Pain, Acute Stated Complaint: STOMACH PAIN Time Seen by Provider: 10/04/17 15:40 History Source: Patient Exam Limitations: No Limitations - History of Present Illness Initial Comments: 10/04/17 19:02 Ms. Iyer is a 27 yo F with a hx of pancreatitis (10x +, last August 2017), diabetes mellitus, asthma, seizures, and CHF who presents to the ED with complaints of abdominal pain located in the epigastric region. She states this is similar to her previous pancreatitis episodes she had in the past and began 3 days ago. She described it as a crushing pain that radiates to her back bilaterally that was 10/10 on onset and is currently 1/10. Past History - Past Medical History Allergies/Adverse Reactions: Allergies Allergy/AdvReac Type Severity Reaction Status Date / Time mushroom Allergy Verified 10/04/17 15:42 SEAFOOD Allergy Severe ANAPHYLAXIS Uncoded 10/04/17 15:42 Home Medications: Ambulatory Orders Albuterol Sulfate Inhaler - [Ventolin HFA Inhaler -] 1 puff IH Q8H 03/22/16 clonazePAM [Klonopin -] 0.5 mg PO BID PRN 05/23/16 Acetaminophen [Tylenol .Regular Strength -] 650 mg PO Q6H PRN #0 tablet Topiramate [Topamax -] 25 mg PO BID #60 tablet 06/10/16 Insulin Aspart Prot/Insuln Asp [Novolog Mix 70-30 Flexpen Syrn] 50 units SQ BID 08/03/16 Atorvastatin Ca [Lipitor] 10 mg PO HS #30 tablet 02/17/17 Quetiapine Fumarate [Seroquel] 100 tab PO HS 02/17/17 Risperidone [Risperdal] 3 mg PO DAILY 02/17/17 levETIRAcetam [Keppra -] 500 mg PO BID 02/17/17 Cephalexin [Keflex] 500 mg PO TID 7 Days #21 capsule 10/04/17 Anemia: No Asthma: Yes Cancer: No Cardiac Disorders: Yes (RAPID HEARTBEAT HX) CVA: No COPD: No CHF: Yes Dementia: No Diabetes: Yes GI Disorders: Yes (h/o PANCREATITIS.) Disorders: No HTN: (LOW BP) Hypercholesterolemia: No Liver Disease: No Psychiatric Problems: Yes (anxiety, bipolar) Seizures: Yes Thyroid Disease: Yes - Surgical History Abdominal Surgery: No Appendectomy: No Cardiac Surgery: No Cholecystectomy: No Lung Surgery: No Neurologic Surgery: No Orthopedic Surgery: No - Family Disease History Family Disease History: Heart Disease: Grandparents - Reproductive History (#): 1 Para: 0 Cervical CA: No Dysfunctional Uterine Bleeding: No Ectopic : No Endometrial CA: No Polycystic Ovaries: No Therapeutic (s) & number: No Tubal Ligation: No Spontaneous : 1 - Immunization History Immunization Up to Date: Yes - Suicide/Smoking/Psychosocial Hx Smoking Status: Yes Smoking History: Never smoked Have you smoked in the past 12 months: No Number of Cigarettes Smoked Daily: 0 If you are a former smoker, when did you quit?: 2011 'Breaking Loose' booklet given: 03/11/12 Hx Alcohol Use: No Drug/Substance Use Hx: No Substance Use Type: None Hx Substance Use Treatment: No *Physical Exam - Vital Signs Last Vital Signs Temp Pulse Resp BP Pulse Ox 98.4 F 88 16 119/70 99 10/04/17 15:43 10/04/17 15:43 10/04/17 15:43 10/04/17 15:43 10/04/17 15:43 ED Treatment Course - LABORATORY CBC & Chemistry Diagram: 10/04/17 16:36 10/04/17 16:36 - ADDITIONAL ORDERS Additional order review: Laboratory Results 10/04/17 10/04/17 10/04/17 16:41 16:36 16:36 PT with INR INR Sodium 135 L Potassium 4.3 Chloride 103 Carbon Dioxide 22 Anion Gap 10 BUN 6 L Creatinine 0.9 Creat Clearance w eGFR > 60 Random Glucose 520 H* Calcium 8.8 Total Bilirubin 0.3 AST 5 L ALT 12 Alkaline Phosphatase 99 Total Protein 7.0 Albumin 3.0 L Lipase 283 Urine Color Straw Urine Appearance Cloudy Urine pH 6.0 Ur Specific [place] 1.026 Urine Protein Negative Urine Glucose (UA) 3+ H Urine Ketones Negative Urine Blood 2+ H Urine Nitrite Negative Urine Bilirubin Negative Urine Urobilinogen Negative Ur Leukocyte Esterase 3+ H Urine WBC (Auto) 500 Urine RBC (Auto) 56 Ur Epithelial Cells Rare Urine Mucus Rare Urine HCG, Qual Negative 10/04/17 16:36 PT with INR 10.90 INR 0.96 Sodium Potassium Chloride Carbon Dioxide Anion Gap BUN Creatinine Creat Clearance w eGFR Random Glucose Calcium Total Bilirubin AST ALT Alkaline Phosphatase Total Protein Albumin Lipase Urine Color Urine Appearance Urine pH Ur Specific [place] Urine Protein Urine Glucose (UA) Urine Ketones Urine Blood Urine Nitrite Urine Bilirubin Urine Urobilinogen Ur Leukocyte Esterase Urine WBC (Auto) Urine RBC (Auto) Ur Epithelial Cells Urine Mucus Urine HCG, Qual 10/04/17 16:36 RBC 4.52 MCV 87.1 MCHC 33.7 RDW 12.8 MPV 8.2 Neutrophils % 57.9 Lymphocytes % 33.4 Monocytes % 7.3 Eosinophils % 0.6 Basophils % 0.8 *DC/Admit/Observation/Transfer Diagnosis at time of Disposition: Abdominal pain, UTI (lower urinary tract infection) - Discharge Dispostion Disposition: AGAINST MEDICAL ADVICE Decision to Admit order: No - Prescriptions Prescriptions: Cephalexin [Keflex] 500 mg PO TID 7 Days #21 capsule - Referrals Referrals: Trey Richardson MD [Primary Care Provider] - - Patient Instructions - Post Discharge Activity
--- NOTE | 2017-10-04 19:14 | PDOC ---
Attending Attestation - Resident Resident Name: GeriGucci - ED Attending Attestation I have performed the following: I have examined & evaluated the patient, The case was reviewed & discussed with the resident, I agree w/resident's findings & plan - Medical Decision Making 10/04/17 20:04 Pt is refusing to stay in the ER. Her abd pain is gone; she found out that she is not . She is refusing IVF or IV insulin. She wants to eat a sandwich and sign out AMA. 10/04/17 20:10 Pt states that her is taking her out to the city for her Bday celebration. Pt will follow with Dr. Xander Bee. PMD is aware that her sugars are poorly controlled. Pt is awaiting insulin pump to be ok'd by her insurance. She will be given a dose of insulin here. We will treat her UTI with keflex. <Peyton Carroll - Last Filed: 10/04/17 20:04> - HPI HPI: 10/04/17 19:40 The patient is a 27 year old female, with a significant PMH of IDDM, epilepsy, bipolar disorder, anxiety, panic attacks, asthma, low K+, low blood pressure, chronic pancreatitis (unclear etiology), fatty liver, sigmoid diverticulosis, who presents to the emergency department with 3 days of epigastric abdominal pain. The patient states the epigastric pain is a crushing pain, radiating to the back, worsened with meals and when lying down. The patient states her symptoms feel similar to previous episodes of pancreatitis. The patient also endorses increased urinary frequency and thirst. The patient states her last insulin dose was around 2pm this afternoon and her sugars were noted to be around the 300s. The patient denies chest pain, shortness of breath, headache and dizziness. Denies fever, chills, nausea, vomit, diarrhea and constipation. Denies dysuria, urgency and hematuria. Allergies: mushroom, [seafood] - Physicial Exam PE: 10/04/17 20:25 GENERAL: Awake, alert, and fully oriented, in no acute distress HEAD: No signs of trauma EYES: PERRLA, EOMI, sclera anicteric, conjunctiva clear ENT: Auricles normal inspection, hearing grossly normal, nares patent, oropharynx clear without exudates. Moist mucosa NECK: Normal ROM, supple, no lymphadenopathy, JVD, or masses LUNGS: Breath sounds equal, clear to auscultation bilaterally. No wheezes, and no crackles HEART: Regular rate and rhythm, normal S1 and S2, no murmurs, rubs or gallops ABDOMEN: Soft, nontender, normoactive bowel sounds. No guarding, no rebound. No masses EXTREMITIES: Normal range of motion, no edema. No clubbing or cyanosis. No cords, erythema, or tenderness NEUROLOGICAL: Cranial nerves II through XII grossly intact. Normal speech, normal gait SKIN: Warm, Dry, normal turgor, no rashes or lesions noted. <Shun Rizzo - Last Filed: 10/04/17 20:25> Attestations - Attestations 10/04/17 19:41 Documentation prepared by Shun Rizzo, acting as medical insurance collector for Peyton Carroll MD. <Shun Rizzo - Last Filed: 10/04/17 20:25>
[2017-10-04] MEDS ORDERED: CEFTRIAXONE 1 GM in DEXTROSE 5%-WATER - 100 ML IVPB ONE (19:34)
[2017-10-04] MEDS ORDERED: SODIUM CHLORIDE 0.9% 500 ML INFUS.BAG IV ONE (19:34)
[2017-10-04] MEDS ORDERED: INSULIN REGULAR HUMAN 100 UNITS/ML *VIAL IVPUSH ONE (19:40)
[2017-10-04] MEDS ORDERED: INSULIN REGULAR HUMAN 100 UNITS/ML *VIAL SQ ONE (20:04)
[2017-10-04] MEDS ORDERED: CEPHALEXIN MONOHYDRATE 500 MG CAPSULE (UD) PO ONE (20:06)
== END 2017-10-04 20:51 | disposition left against medical advice (07) ==
LOC: JER 15:15
DX: N39.0 Urinary tract infection, site not specified (principal); R10.13 Epigastric pain; E10.9 Type 1 diabetes mellitus without complications; Z79.4 Long term (current) use of insulin; K86.1 Other chronic pancreatitis; F41.9 Anxiety disorder, unspecified; F41.0 Panic disorder [episodic paroxysmal anxiety]; F31.9 Bipolar disorder, unspecified; G40.909 Epilepsy, unspecified, not intractable, without status epilepticus; J45.909 Unspecified asthma, uncomplicated; K57.90 Diverticulosis of intestine, part unspecified, without perforation or abscess without bleeding; Z91.19 Patient's noncompliance with other medical treatment and regimen
CPT/HCPCS: 36415; 80053; 81003; 81015; 83690; 84703; 85025; 85610; 87086; 99282-25

== ENCOUNTER 2017-10-21 14:17 | Emergency (ER) | payer OTHER ==
[2017-10-21 15:04] VITALS: BP 112/49; PULSE 78; TEMP 98.5; BMI 37.7
--- NOTE | 2017-10-21 15:10 | PDOC ---
Rapid Medical Evaluation Chief Complaint: Pain Time Seen by Provider: 10/21/17 15:04 Medical Evaluation: Allergies Allergy/AdvReac Type Severity Reaction Status Date / Time mushroom Allergy Verified 10/21/17 15:02 SEAFOOD Allergy Severe ANAPHYLAXIS Uncoded 10/21/17 15:02 Vital Signs Temp Pulse Resp BP Pulse Ox 98.5 F 78 18 112/49 100 10/21/17 15:02 10/21/17 15:02 10/21/17 15:02 10/21/17 15:02 10/21/17 15:02 10/21/17 15:07 complain: Patient with h/o IDDM, pancreatitis and CHF present with complains of epigastric and RUQ pain with mild nausea starting this afternoon which she believes is pancreatitis as she had in the past a month ago and had same pain exam: tenderness to epigastric and RUQ. no guarding or rebound tenderness order: none f/u patient will proceed to ED for further evaluation Discharge Disposition - Diagnosis Abdominal pain Qualifiers: Abdominal location: epigastric Qualified Code(s): R10.13 - Epigastric pain - Referrals Referrals: Trey Richardson MD [Primary Care Provider] - - Patient Instructions - Post Discharge Activity
[2017-10-21] MEDS ORDERED: SODIUM CHLORIDE 1,000 ML IV STA (18:51)
[2017-10-21 19:05] LABS: EOS % 0.6 % (0-4.5); HEMOGLOBIN 14.3 GM/dL (10.7-15.3)
[2017-10-21 19:12] LABS: BASO % 0.7 % (0-2.0); HEMATOCRIT 41.5 % (32.4-45.2); LYMPH % 40.8 % (8-40); MCH 29.7 pg (25.7-33.7); MCHC 34.5 g/dl (32.0-36.0); MEAN PLT VOLUME 8.1 fl (7.5-11.1); MONO % 6.9 % (3.8-10.2); PLATELET COUNT 209 K/MM3 (134-434); RBC 4.82 M/mm3 (3.60-5.2); RDW 12.9 % (11.6-15.6); WHITE BLOOD COUNT 8.2 K/mm3 (4.0-10.0)
[2017-10-21 19:30] LABS: ALBUMIN 3.6 g/dl (3.4-5.0); ALK PHOS 85 U/L (45-117); AMYLASE 62 U/L (25-115); ANION GAP 8 (8-16); BILIRUBIN,TOTAL 0.7 mg/dL (0.2-1.0); BLOOD UREA NITROGEN 14 mg/dL (7-18); CALCIUM 9.5 mg/dL (8.5-10.1); CHLORIDE 102 mmol/L (98-107); CO2 28 mmol/L (21-32); CREATININE 0.7 mg/dL (0.55-1.02); POTASSIUM 4.4 mmol/L (3.5-5.1); SGOT/AST 9 U/L (15-37); SGPT/ALT 14 U/L (12-78); SODIUM 138 mmol/L (136-145)
[2017-10-21 19:35] LABS: URINE APPEARANCE SLCLOUDY; URINE BILIRUBIN NEGATIVE (<2.0 mg/dL); URINE COLOR LTYELLOW; URINE GLUCOSE (UA) 3+ (NEGATIVE); URINE KETONE 1+ (NEGATIVE); URINE LEUK ESTERASE TRACE (NEGATIVE); URINE NITRITE NEGATIVE (NEGATIVE); URINE PROTEIN NEGATIVE (NEGATIVE); URINE UROBILINOGEN NEGATIVE mg/dL (0.2-1.0)
[2017-10-21 19:45] LABS: LIPASE 1414 U/L (73-393)
[2017-10-21 19:50] LABS: EPI CELLS MODERATE /HPF (FEW)
[2017-10-21 19:51] LABS: GLUCOSE,RANDOM 330 mg/dL (74-106)
--- NOTE | 2017-10-21 19:58 | PDOC ---
History of Present Illness - General Chief Complaint: Pain Stated Complaint: ABD PAIN Time Seen by Provider: 10/21/17 15:04 History Source: Patient Exam Limitations: No Limitations - History of Present Illness Travel History: No Initial Comments: 10/21/17 18:42 Best Contact: PCP: Dr. Carol Richardson Pmhx: Pancreatitis/last episode 09/04/2017, IDDM, seizures, asthma, low blood pressure, panic attacks, anxiety Pshx:none Allergies: NO KNOWN DRUG ALLERGIES FH: Denies Social Hx: Cigarettes/ 0 Alcohol/ 0 Drugs/0 LMP:10/17/2017 27-year-old female presents to the ER complaining of 1/10 sharp nonradiating intermittent epigastric discomfort without fever, chills, nausea/vomiting, headache, dizziness, lightheadedness, facial pains, back pains, chest pain, shortness of breath, flank pains, urinary symptoms: Frequency/urgency/hesitancy , hematuria. Pain is exacerbated "when I think about it", and alleviated at rest. Patient states she has similar symptoms previously when diagnosed with pancreatitis. Past History - Past Medical History Allergies/Adverse Reactions: Allergies Allergy/AdvReac Type Severity Reaction Status Date / Time mushroom Allergy Verified 10/21/17 15:02 SEAFOOD Allergy Severe ANAPHYLAXIS Uncoded 10/21/17 15:02 Home Medications: Ambulatory Orders Albuterol Sulfate Inhaler - [Ventolin HFA Inhaler -] 1 puff IH Q8H 03/22/16 clonazePAM [Klonopin -] 0.5 mg PO BID PRN 05/23/16 Acetaminophen [Tylenol .Regular Strength -] 650 mg PO Q6H PRN #0 tablet Topiramate [Topamax -] 25 mg PO BID #60 tablet 06/10/16 Insulin Aspart Prot/Insuln Asp [Novolog Mix 70-30 Flexpen Syrn] 50 units SQ BID 08/03/16 Atorvastatin Ca [Lipitor] 10 mg PO HS #30 tablet 02/17/17 Quetiapine Fumarate [Seroquel] 100 tab PO HS 02/17/17 Risperidone [Risperdal] 3 mg PO DAILY 02/17/17 levETIRAcetam [Keppra -] 500 mg PO BID 02/17/17 Cephalexin [Keflex] 500 mg PO TID 7 Days #21 capsule 10/04/17 Anemia: No Asthma: Yes Cancer: No Cardiac Disorders: Yes (RAPID HEARTBEAT HX) CVA: No COPD: No CHF: Yes Dementia: No Diabetes: Yes GI Disorders: Yes (h/o PANCREATITIS.) Disorders: No HTN: (LOW BP) Hypercholesterolemia: No Liver Disease: No Psychiatric Problems: Yes (anxiety, bipolar) Seizures: Yes Thyroid Disease: Yes - Surgical History Abdominal Surgery: No Appendectomy: No Cardiac Surgery: No Cholecystectomy: No Lung Surgery: No Neurologic Surgery: No Orthopedic Surgery: No - Family Disease History Family Disease History: Heart Disease: Grandparents - Reproductive History (#): 1 Para: 0 Cervical CA: No Dysfunctional Uterine Bleeding: No Ectopic : No Endometrial CA: No Polycystic Ovaries: No Therapeutic (s) & number: No Tubal Ligation: No Spontaneous : 1 - Immunization History Immunization Up to Date: Yes - Suicide/Smoking/Psychosocial Hx Smoking Status: Yes Smoking History: Former smoker Have you smoked in the past 12 months: No Number of Cigarettes Smoked Daily: 0 If you are a former smoker, when did you quit?: 2011 Information on smoking cessation initiated: No 'Breaking Loose' booklet given: 03/11/12 Hx Alcohol Use: No Drug/Substance Use Hx: No Substance Use Type: None Hx Substance Use Treatment: No Abd/GI Specific PMHX - Complaint Specific PMHX Pancreatitis: Yes Review of Systems - Review of Systems Able to Perform ROS?: Yes Comments:: 10/21/17 19:55 CONSTITUTIONAL: Absent: fever, chills, diaphoresis, generalized weakness, malaise, loss of appetite HEENT: Absent: rhinorrhea, nasal congestion, throat pain, throat swelling, difficulty swallowing, mouth swelling, ear pain, eye pain, visual Changes CARDIOVASCULAR: Absent: chest pain, loss of consciousness, palpitations, irregular heart rate, peripheral edema RESPIRATORY: Absent: cough, shortness of breath, dyspnea with exertion, orthopnea, wheezing, stridor, hemoptysis GASTROINTESTINAL: +epigastric pain Absent: abdominal distension, nausea, vomiting, diarrhea, constipation, melena, hematochezia GENITOURINARY: Absent: dysuria, frequency, urgency, hesitancy, hematuria, flank pain, genital pain MUSCULOSKELETAL: Absent: myalgia, arthralgia, joint swelling SKIN: Absent: rash, itching, pallor HEMATOLOGIC/IMMUNOLOGIC: Absent: easy bleeding, easy bruising, lymphadenopathy, frequent infections ENDOCRINE: Absent: unexplained weight gain, unexplained weight loss, heat intolerance, cold intolerance Is the patient limited Tajik proficient: No *Physical Exam - Vital Signs Last Vital Signs Temp Pulse Resp BP Pulse Ox 98.5 F 78 18 112/49 100 10/21/17 15:02 10/21/17 15:02 10/21/17 15:02 10/21/17 15:02 10/21/17 15:02 - Physical Exam Comments: 10/21/17 19:56 GENERAL: Well developed, well nourished. Awake and alert. No acute distress. HEENT: Normocephalic, atraumatic. PERRLA, EOMI. No conjunctival pallor. Sclera are non- icteric. Moist mucous membranes. Oropharynx is clear. NECK: Supple. Full ROM. No JVD. Carotid pulses 2+ and symmetric, without bruits. No thyromegaly. No lymphadenopathy. CARDIOVASCULAR: Regular rate and rhythm. No murmurs, rubs, or gallops. Distal pulses are 2+ and symmetric. PULMONARY: No evidence of respiratory distress. Lungs clear to auscultation bilaterally. No wheezing, rales or rhonchi. ABDOMINAL: Soft. Non-tender. Non-distended. No rebound or guarding. No organomegaly. Normoactive bowel sounds. MUSCULOSKELETAL Normal range of motion at all joints. No bony deformities or tenderness. No CVA tenderness. EXTREMITIES: No cyanosis. No clubbing. No edema. No calf tenderness. SKIN: Warm and dry. Normal capillary refill. No rashes. No jaundice. NEUROLOGICAL: Alert, awake, appropriate. Cranial nerves 2-12 intact. No deficits to light touch and temperature in face, upper extremities and lower extremities. No motor deficits in the in face, upper extremities and lower extremities. Normoreflexic in the upper and lower extremities. Normal speech. Toes are down- going bilaterally. Gait is normal without ataxia. PSYCHIATRIC: Cooperative. Good eye contact. Appropriate mood and affect. ED Treatment Course - LABORATORY CBC & Chemistry Diagram: 10/21/17 18:48 10/21/17 18:48 - ADDITIONAL ORDERS Additional order review: Laboratory Results 10/21/17 10/21/17 18:48 18:48 Sodium 138 Potassium 4.4 Chloride 102 Carbon Dioxide 28 Anion Gap 8 BUN 14 Creatinine 0.7 Creat Clearance w eGFR > 60 Random Glucose 330 H* Calcium 9.5 Total Bilirubin 0.7 AST 9 L ALT 14 Alkaline Phosphatase 85 D Total Protein 8.0 Albumin 3.6 Total Amylase 62 Lipase 1414 H Urine Color Ltyellow Urine Appearance Slcloudy Urine pH 5.0 Ur Specific [place] 1.039 H Urine Protein Negative Urine Glucose (UA) 3+ H Urine Ketones 1+ H Urine Blood Negative Urine Nitrite Negative Urine Bilirubin Negative Urine Urobilinogen Negative Ur Leukocyte Esterase Trace 10/21/17 18:48 RBC 4.82 MCV 86.0 MCHC 34.5 RDW 12.9 MPV 8.1 Neutrophils % 51.0 Lymphocytes % 40.8 H D Monocytes % 6.9 Eosinophils % 0.6 Basophils % 0.7 Progress Note - Progress Note Progress Note: 1947hrs: Patient was informed her glucose is 3:30. Patient states she usually runs about 350 at home. Patient insists on leaving AGAINST MEDICAL ADVICE. Patient states she feels no pain and is perfectly fine at this time. Patient states she will either follow-up with a PMD or return if the symptoms gets worse. *DC/Admit/Observation/Transfer Diagnosis at time of Disposition: Abdominal pain Qualifiers: Abdominal location: epigastric Qualified Code(s): R10.13 - Epigastric pain Pancreatitis, acute Qualifiers: Pancreatitis type: other Acute pancreatitis complication: unspecified Qualified Code(s): K85.80 - Other acute pancreatitis without necrosis or infection - Discharge Dispostion Disposition: AGAINST MEDICAL ADVICE Condition at time of disposition: Stable Decision to Admit order: No - Referrals Referrals: Trey Richardson MD [Primary Care Provider] - Darrick Martinez MD [Staff Physician] - - Patient Instructions Printed Discharge Instructions: DI for Abdominal Pain-Adult Additional Instructions: As discussed in length and the emergency department, it is important that you stay to be evaluated in the emergency department but you adamantly refuses and wishes to be discharged AGAINST MEDICAL ADVICE. It is important that you follow-up with your medical doctor and a GI doctor listed on your discharge. Please return back to the ER for severe/persistent/worsening or recurrent discomfort or any concerns - Post Discharge Activity
[2017-10-21 20:02] LABS: HCG,QUALITATIVE URINE NEGATIVE
== END 2017-10-21 21:00 | disposition left against medical advice (07) ==
LOC: JER 14:17
DX: R10.13 Epigastric pain (principal); Z87.891 Personal history of nicotine dependence; F31.9 Bipolar disorder, unspecified; E07.9 Disorder of thyroid, unspecified; I95.9 Hypotension, unspecified; E11.9 Type 2 diabetes mellitus without complications
CPT/HCPCS: 36415; 80053; 81003; 81015; 82150; 83690; 84703; 85025; 99282-25

== ENCOUNTER 2017-10-30 16:11 | Observation (INO) | payer OTHER ==
--- NOTE | 2017-10-30 16:37 | PDOC ---
Rapid Medical Evaluation Chief Complaint: Urinary Problem Time Seen by Provider: 10/30/17 16:29 Medical Evaluation: Allergies Allergy/AdvReac Type Severity Reaction Status Date / Time mushroom Allergy Verified 10/30/17 16:30 SEAFOOD Allergy Severe ANAPHYLAXIS Uncoded 10/30/17 16:30 Vital Signs Temp Pulse Resp BP Pulse Ox 98.4 F 119 H 16 110/67 97 10/30/17 16:30 10/30/17 16:30 10/30/17 16:30 10/30/17 16:30 10/30/17 16:30 10/30/17 16:35 Pt presents with two days of urinary frequency, urgency and hematuria. Exam: ambulatory, no acute distress Orders: urine Pt to proceed to ED for further evaluation Discharge Disposition - Diagnosis Dysuria - Referrals - Patient Instructions - Post Discharge Activity
[2017-10-30 17:20] LABS: URINE APPEARANCE CLOUDY; URINE BILIRUBIN NEGATIVE (<2.0 mg/dL); URINE COLOR AMBER; URINE GLUCOSE (UA) 3+ (NEGATIVE); URINE KETONE TRACE (NEGATIVE); URINE LEUK ESTERASE 3+ (NEGATIVE); URINE NITRITE NEGATIVE (NEGATIVE); URINE PROTEIN 3+ (NEGATIVE); URINE UROBILINOGEN NEGATIVE mg/dL (0.2-1.0)
[2017-10-30 17:21] LABS: HCG,QUALITATIVE URINE Negative
[2017-10-30 17:31] LABS: YEAST RARE
--- NOTE | 2017-10-30 17:44 | PDOC ---
History of Present Illness - General Chief Complaint: Urinary Problem Stated Complaint: URINARY PROBLEM Time Seen by Provider: 10/30/17 16:29 History Source: Patient Exam Limitations: No Limitations - History of Present Illness Travel History: No Initial Comments: 10/30/17 17:39 HISTORY OF PRESENT ILLNESS: 27-year-old woman with past medical history of CHF , chronic pancreatitis, IDDM, frequent UTIs and bipolar disorder who presents emergency Department with dysuria and suprapubic pain for 24 hours. Patient states her pain is consistent with her usual UTI pain and does not feel like her regular pancreatitis flareups. Patient reports chills but denies fevers. Patient reports she is having urinary frequency, dysuria and tano hematuria on voiding. She denies chest pain, shortness of breath, upper abdominal pain, nausea, vomiting, diarrhea. No recent travel or sick contacts. PAST MEDICAL HISTORY: see HPI SURGICAL HISTORY: Denies ALLERGIES: No known drug allergies REVIEW OF SYSTEMS General/Constitutional: Denies fever or chills. Denies weakness, weight change. HEENT: Denies change in vision. Denies ear pain or discharge. Denies sore throat. Cardiovascular: Denies chest pain or shortness of breath. Respiratory: Denies cough, wheezing, or hemoptysis. Gastrointestinal: Denies nausea, vomiting, diarrhea or constipation. Denies rectal bleeding. Genitourinary: Reports dysuria, frequency, or change in urination. Musculoskeletal: Denies joint or muscle swelling or pain. Denies neck or back pain. Skin and breasts: Denies rash or easy bruising. Neurologic: Denies headache, vertigo, loss of consciousness, or loss of sensation. Psychiatric: Denies depression or anxiety. Endocrine: Denies increased thirst. Denies abnormal weight change. Hematologic/Lymphatic: Denies anemia, easy bleeding, or history of blood clots. Allergic/Immunologic: Denies hives or skin allergy. Denies latex allergy. PHYSICAL EXAM General Appearance: Well-appearing, appropriately dressed. No apparent distress , no intoxication. HEENT: EOMI, PERRLA, normal ENT inspection, normal voice, TMs normal, pharynx normal. No conjunctival pallor. No photophobia, scleral icterus. Neck: Supple. Trachea midline. No tenderness, rigidity, carotid bruit, stridor , lymphadenopathy, or thyromegaly. Respiratory/Chest: Lungs CTAB. No shortness of breath, chest tenderness, respiratory distress, accessory muscle use. No crackles, rales, rhonchi, stridor , wheezing, dullness Cardiovascular: RRR. S1, S2. No JVD, murmur, bradycardia, tachycardia. Vascular Pulses: Dorsalis-Pedis (R): 2+, Dorsalis-Pedis (L): 2+ Gastrointestinal/Abdominal: Normal bowel sounds. Abdomen soft, non-distended. No tenderness or rebound tenderness. No organomegaly, pulsatile mass, guarding , hernia, hepatomegaly, splenomegaly. Suprapubic tenderness. Lymphatic: No adenopathy, tenderness. Musculoskeletal/Extremities: Normal inspection. FROM of all extremities, normal capillary refill. Pelvis Stable. No CVA tenderness. No tenderness to extremities, pedal edema, swelling, erythema or deformity. Integumentary: Appropriate color, warm. No cyanosis, erythema, jaundice or rash. Diaphoretic upon evaluation. Neurologic: prison librarian II-XII intact. Fully oriented, alert. Appropriate mood/affect. Motor strength 5/5. No appreciable EOM palsy, facial droop or sensory deficit. Past History - Past Medical History Allergies/Adverse Reactions: Allergies Allergy/AdvReac Type Severity Reaction Status Date / Time mushroom Allergy Verified 10/30/17 16:30 SEAFOOD Allergy Severe ANAPHYLAXIS Uncoded 10/30/17 16:30 Home Medications: Ambulatory Orders Albuterol Sulfate Inhaler - [Ventolin HFA Inhaler -] 1 puff IH Q8H 03/22/16 clonazePAM [Klonopin -] 0.5 mg PO BID PRN 05/23/16 Topiramate [Topamax -] 25 mg PO BID #60 tablet 06/10/16 Insulin Aspart Prot/Insuln Asp [Novolog Mix 70-30 Flexpen Syrn] 50 units SQ BID 08/03/16 Atorvastatin Ca [Lipitor] 10 mg PO HS #30 tablet 02/17/17 Quetiapine Fumarate [Seroquel] 100 tab PO HS 02/17/17 Risperidone [Risperdal] 3 mg PO DAILY 02/17/17 levETIRAcetam [Keppra -] 500 mg PO BID 02/17/17 Anemia: No Asthma: Yes Cancer: No Cardiac Disorders: Yes (RAPID HEARTBEAT HX) CVA: No COPD: No CHF: Yes Dementia: No Diabetes: Yes GI Disorders: Yes (h/o PANCREATITIS.) Disorders: No HTN: (LOW BP) Hypercholesterolemia: No Liver Disease: No Psychiatric Problems: Yes (anxiety, bipolar) Seizures: Yes Thyroid Disease: Yes - Surgical History Abdominal Surgery: No Appendectomy: No Cardiac Surgery: No Cholecystectomy: No Lung Surgery: No Neurologic Surgery: No Orthopedic Surgery: No - Family Disease History Family Disease History: Heart Disease: Grandparents - Reproductive History (#): 1 Para: 0 Cervical CA: No Dysfunctional Uterine Bleeding: No Ectopic : No Endometrial CA: No Polycystic Ovaries: No Therapeutic (s) & number: No Tubal Ligation: No Spontaneous : 1 - Immunization History Immunization Up to Date: Yes - Suicide/Smoking/Psychosocial Hx Smoking Status: Yes Smoking History: Never smoked Have you smoked in the past 12 months: No Number of Cigarettes Smoked Daily: 0 If you are a former smoker, when did you quit?: 2011 Information on smoking cessation initiated: No 'Breaking Loose' booklet given: 03/11/12 Hx Alcohol Use: No Drug/Substance Use Hx: No Substance Use Type: None Hx Substance Use Treatment: No Abd/GI Specific PMHX - Complaint Specific PMHX Pancreatitis: Yes *Physical Exam - Vital Signs Last Vital Signs Temp Pulse Resp BP Pulse Ox 98.4 F 119 H 16 110/67 97 10/30/17 16:30 10/30/17 16:30 10/30/17 16:30 10/30/17 16:30 10/30/17 16:30 ED Treatment Course - ADDITIONAL ORDERS Additional order review: Laboratory Results 10/30/17 17:09 Urine Color Cheryl Urine Appearance Cloudy Urine pH 6.0 Ur Specific [place] 1.032 Urine Protein 3+ H Urine Glucose (UA) 3+ H Urine Ketones Trace H Urine Blood 3+ H Urine Nitrite Negative Urine Bilirubin Negative Urine Urobilinogen Negative Ur Leukocyte Esterase 3+ H Urine WBC (Auto) 1963 Urine RBC (Auto) 2051 Urine Yeast Rare Urine HCG, Qual Negative Medical Decision Making - Medical Decision Making 10/30/17 17:41 A/P: 27-year-old woman with history of chronic pancreatitis, IDDM, CHF and frequent UTIs with dysuria for 1 day Heart rate notable for one 19 on arrival Lungs clear to auscultation bilaterally Abdomen with suprapubic tenderness No CVA tenderness elicited Patient is diaphoretic Differential diagnoses include DKA, sepsis, UTI, pyelonephritis Labs, transfer to main ER for continued evaluation. 10/30/17 17:48 Sign out given to Lance You. *DC/Admit/Observation/Transfer Diagnosis at time of Disposition: Dysuria - Referrals - Patient Instructions - Post Discharge Activity
[2017-10-30] MEDS ORDERED: SODIUM CHLORIDE 1,000 ML IV STA (18:02)
[2017-10-30] MEDS ORDERED: CEFTRIAXONE 1,000 MG in DEXTROSE 5%-WATER - 50 ML IVPB ONE (18:42)
[2017-10-30] MEDS ORDERED: ACETAMINOPHEN 1000 MG/100 ML VIAL (NON FORMULARY) IVPB ONE (18:46)
[2017-10-30 18:51] LABS: BASO % 0.6 % (0-2.0); EOS % 0.5 % (0-4.5); HEMATOCRIT 42.8 % (32.4-45.2); HEMOGLOBIN 14.7 GM/dL (10.7-15.3); LYMPH % 24.4 % (8-40); MCH 29.5 pg (25.7-33.7); MCHC 34.4 g/dl (32.0-36.0); MEAN CELL VOLUME 85.8 fl (80-96); MEAN PLT VOLUME 8.4 fl (7.5-11.1); MONO % 6.7 % (3.8-10.2); NEUT % 67.8 % (42.8-82.8); PLATELET COUNT 199 K/MM3 (134-434); RBC 4.99 M/mm3 (3.60-5.2); RDW 12.7 % (11.6-15.6); WHITE BLOOD COUNT 11.9 K/mm3 (4.0-10.0)
[2017-10-30 19:40] LABS: ALBUMIN 3.6 g/dl (3.4-5.0); ANION GAP 11 (8-16); BILIRUBIN,TOTAL 0.5 mg/dL (0.2-1.0); BLOOD UREA NITROGEN 7 mg/dL (7-18); CALCIUM 9.2 mg/dL (8.5-10.1); CHLORIDE 102 mmol/L (98-107); CO2 23 mmol/L (21-32); CREATININE 0.8 mg/dL (0.55-1.02); POTASSIUM 4.1 mmol/L (3.5-5.1); SGOT/AST 14 U/L (15-37); SGPT/ALT 18 U/L (12-78); SODIUM 136 mmol/L (136-145); TOT PROT 7.6 g/dl (6.4-8.2)
[2017-10-30 19:41] LABS: ALK PHOS 84 U/L (45-117)
[2017-10-30 19:45] LABS: GLUCOSE,RANDOM 378 mg/dL (74-106)
--- NOTE | 2017-10-30 19:55 | PN ---
Teaching Attending Note Name of Resident: Van Shahid ATTENDING PHYSICIAN STATEMENT I saw and evaluated the patient. I reviewed the resident's note and discussed the case with the resident. I agree with the resident's findings and plan as documented. SUBJECTIVE: Patient is a 27 year old woman with past medical history of ?CHF, chronic pancreatitis, IDDM, frequent UTIs and bipolar disorder who presents to the ER with dysuria and suprapubic pain for 24 hours. Patient states her pain is consistent with her usual UTI pain and does not feel like her regular pancreatitis flareups. Patient reports chills but denies fevers. Patient reports she is having urinary frequency, dysuria and tano hematuria with clots on voiding. She denies chest pain, shortness of breath, upper abdominal pain, nausea, vomiting, or diarrhea. Her period ended 10 days ago. OBJECTIVE: Alert and obese Vital Signs Period Temp Pulse Resp BP Sys/Argueta Pulse Ox Last 24 Hr 98.4 F 119 16 110/67 97 HEENT: No Jaundice, eye redness or discharge, PERRLA, EOMI. Normocephalic, atraumatic. External ears are normal and hearing is grossly intact. No nasal discharge. Neck: Supple, nontender. No palpable adenopathy or thyromegaly. No JVD Chest: Good effort. Clear to auscultation and percussion. Heart: Regular. No S3, rub or murmur Abdomen: Not distended, soft, nontender and no HSM. No rebound or guarding. Normoactive bowel sounds. Ext: Peripheral pulses intact. No leg edema. Skin: Warm and dry. No petechiae, rash or ecchymosis. Neuro: Alert. Oriented x3. CN 2-12 grossly intact. Sensation grossly intact in all four extremities and DTR are symmetric. Home Medications Medication Instructions Recorded Albuterol Sulfate Inhaler - 1 puff IH Q8H 03/22/16 [Ventolin HFA Inhaler -] clonazePAM [Klonopin -] 0.5 mg PO BID PRN 05/23/16 Topiramate [Topamax -] 25 mg PO BID #60 tablet 06/10/16 Insulin Aspart Prot/Insuln Asp 50 units SQ BID 08/03/16 [Novolog Mix 70-30 Flexpen Syrn] Atorvastatin Ca [Lipitor] 10 mg PO HS #30 tablet 02/17/17 Quetiapine Fumarate [Seroquel] 100 tab PO HS 02/17/17 Risperidone [Risperdal] 3 mg PO DAILY 02/17/17 levETIRAcetam [Keppra -] 500 mg PO BID 02/17/17 Abnormal Lab Results 10/30/17 10/30/17 10/30/17 17:09 18:37 18:41 WBC 11.9 H Absolute Neuts (auto) 8.1 H Random Glucose 378 H* AST 14 L Urine Protein 3+ H Urine Glucose (UA) 3+ H Urine Ketones Trace H Urine Blood 3+ H Ur Leukocyte Esterase 3+ H Acetone, Qual 10/30/17 18:41 WBC Absolute Neuts (auto) Random Glucose AST Urine Protein Urine Glucose (UA) Urine Ketones Urine Blood Ur Leukocyte Esterase Acetone, Qual Positive small 1+ H ASSESSMENT AND PLAN: 1. UTI - Being treated with Rocephin 1 gm IV Q 24 hours. Hematuria with clots is concerning. Will get sonogram of abdomen, urology and nephrology consults. Get ECHO to confirm the questionable history of ?CHF. 2. DM - Has suboptimal glucose control. Will check HbA1c and hold the home diabetes drugs and implement sliding scale insulin regimen. Provide comprehensive diabetes care with patient teaching and counseling about the importance of euglycemia, eye care and foot care. 3. Obesity - Will provide patient all the necessary assistance , counseling and positive reinforcement to facilitate weight loss. Consult top lift cutter. 4. DVT prophylaxis - Lovenox 40 mg SQ q 24 hours. 5. Advance directives - Full code
--- NOTE | 2017-10-30 21:11 | HP ---
CHIEF COMPLAINT: dysuria, hematuria PCP: Dr. Richardson HISTORY OF PRESENT ILLNESS: 27 yo female with PMH IDDM, recurrent pancreatitis, frequent UTIs, Bipolar, anxiety, Questionable CHF history, presented to the ED with complaint of 24 hours of dysuria, hematuria, and suprapubic pain. She states she has frequent UTI's and her last UTI was about a month ago. She received oral abx at that time and does not know which one. She states that the blood in her urine is abnormal compared to her usual UTI symptoms, though everything else is similar to her usual complaints. She states the last day of her LMP was 10 days ago. She complains of some chills, but denies fevers, nausea, vomiting, diarrhea, constipation, abnormal vaginal discharge. ER course was notable for: (1) WBC 11.9, (2) UA: 3+ prot, 3+glucose, 3+blood, 3+ LE, 1963 WBCs, 2051 RBCs (3) Ceftriaxone given in ED Recent Travel: none PAST MEDICAL HISTORY: IDDM, recurrent pancreatitis, frequent UTIs, Bipolar, Anxiety, CHF as per pt PAST SURGICAL HISTORY: none Social History: Smoking: former smoker Alcohol: minimal Drugs: none Family History: Allergies mushroom Allergy (Verified 10/30/17 16:30) SEAFOOD Allergy (Severe, Uncoded 10/30/17 16:30) ANAPHYLAXIS HOME MEDICATIONS: Home Medications Medication Instructions Recorded Albuterol Sulfate Inhaler - 1 puff IH Q8H 03/22/16 [Ventolin HFA Inhaler -] clonazePAM [Klonopin -] 0.5 mg PO BID PRN 05/23/16 Topiramate [Topamax -] 25 mg PO BID #60 tablet 06/10/16 Insulin Aspart Prot/Insuln Asp 50 units SQ BID 08/03/16 [Novolog Mix 70-30 Flexpen Syrn] Atorvastatin Ca [Lipitor] 10 mg PO HS #30 tablet 02/17/17 Quetiapine Fumarate [Seroquel] 100 tab PO HS 02/17/17 Risperidone [Risperdal] 3 mg PO DAILY 02/17/17 levETIRAcetam [Keppra -] 500 mg PO BID 02/17/17 REVIEW OF SYSTEMS CONSTITUTIONAL: chills, Absent: fever, diaphoresis, generalized weakness, malaise, loss of appetite, weight change HEENT: Absent: rhinorrhea, nasal congestion, throat pain, throat swelling, difficulty swallowing, mouth swelling, ear pain, eye pain, visual changes CARDIOVASCULAR: Absent: chest pain, syncope, palpitations, irregular heart rate, lightheadedness , peripheral edema RESPIRATORY: Absent: cough, shortness of breath, dyspnea with exertion, orthopnea, wheezing, stridor, hemoptysis GASTROINTESTINAL: Absent: abdominal pain, abdominal distension, nausea, vomiting, diarrhea, constipation, melena, hematochezia GENITOURINARY: dysuria, frequency, hematuria, Absent: urgency, hesitancy, flank pain, genital pain MUSCULOSKELETAL: Absent: myalgia, arthralgia, joint swelling, back pain, neck pain SKIN: Absent: rash, itching, pallor HEMATOLOGIC/IMMUNOLOGIC: Absent: easy bleeding, easy bruising, lymphadenopathy, frequent infections ENDOCRINE: Absent: unexplained weight gain, unexplained weight loss, heat intolerance, cold intolerance NEUROLOGIC: Absent: headache, focal weakness or paresthesias, dizziness, unsteady gait, seizure, mental status changes, bladder or bowel incontinence PSYCHIATRIC: Absent: anxiety, depression, suicidal or homicidal ideation, hallucinations. PHYSICAL EXAMINATION Vital Signs - 24 hr 10/30/17 16:30 Temperature 98.4 F Pulse Rate 119 H Respiratory 16 Rate Blood Pressure 110/67 O2 Sat by Pulse 97 Oximetry (%) GENERAL: A&O, no acute distress HEAD: Normocephalic, atraumatic. EYES: PERRL, EOMI, no scleral icterus EARS, NOSE, THROAT: oropharynx clear without exudates. Moist mucous membranes. NECK: supple without lymphadenopathy LUNGS: CTA b/l, no crackles or wheezes HEART: Regular rate and rhythm, normal S1 and S2 without murmur, rub or gallop. ABDOMEN: Soft, tender to palpation in suprapubic area, normoactive bowel sounds MUSCULOSKELETAL: No bony deformities or tenderness. No CVA tenderness. UPPER EXTREMITIES: 2+ pulses, warm, well-perfused. No cyanosis. No clubbing. No peripheral edema. LOWER EXTREMITIES: 2+ pulses, warm, well-perfused. No calf tenderness. No peripheral edema. NEUROLOGICAL: Cranial nerves II-XII grossly intact. Normal speech. SKIN: Warm, dry, normal turgor, no rashes or lesions noted Laboratory Results - last 24 hr 10/30/17 10/30/17 10/30/17 17:09 18:37 18:41 WBC 11.9 H RBC 4.99 Hgb 14.7 Hct 42.8 MCV 85.8 MCH 29.5 MCHC 34.4 RDW 12.7 Plt Count 199 MPV 8.4 Absolute Neuts (auto) 8.1 H Neutrophils % 67.8 D Lymphocytes % 24.4 D Monocytes % 6.7 Eosinophils % 0.5 Basophils % 0.6 Nucleated RBC % 0 Sodium 136 Potassium 4.1 Chloride 102 Carbon Dioxide 23 Anion Gap 11 BUN 7 Creatinine 0.8 Creat Clearance w eGFR > 60 Random Glucose 378 H* Lactic Acid Calcium 9.2 Total Bilirubin 0.5 AST 14 L ALT 18 Alkaline Phosphatase 84 Total Protein 7.6 Albumin 3.6 Urine Color Cheryl Urine Appearance Cloudy Urine pH 6.0 Ur Specific [place] 1.032 Urine Protein 3+ H Urine Glucose (UA) 3+ H Urine Ketones Trace H Urine Blood 3+ H Urine Nitrite Negative Urine Bilirubin Negative Urine Urobilinogen Negative Ur Leukocyte Esterase 3+ H Urine WBC (Auto) 1963 Urine RBC (Auto) 2050 Urine Yeast Rare Urine HCG, Qual Negative Acetone, Qual 10/30/17 10/30/17 18:41 18:41 WBC RBC Hgb Hct MCV MCH MCHC RDW Plt Count MPV Absolute Neuts (auto) Neutrophils % Lymphocytes % Monocytes % Eosinophils % Basophils % Nucleated RBC % Sodium Potassium Chloride Carbon Dioxide Anion Gap BUN Creatinine Creat Clearance w eGFR Random Glucose Lactic Acid 1.1 Calcium Total Bilirubin AST ALT Alkaline Phosphatase Total Protein Albumin Urine Color Urine Appearance Urine pH Ur Specific [place] Urine Protein Urine Glucose (UA) Urine Ketones Urine Blood Urine Nitrite Urine Bilirubin Urine Urobilinogen Ur Leukocyte Esterase Urine WBC (Auto) Urine RBC (Auto) Urine Yeast Urine HCG, Qual Acetone, Qual Positive small 1+ H ASSESSMENT/PLAN: 27 yo female with PMH IDDM, recurrent pancreatitis, frequent UTIs, Bipolar, anxiety, Questionable CHF history admitted for UTI with new onset hematuria. Pt also uncontrolled diabetic UTI with hematuria -UTI with less likely pyelonephritis as pt afebrile with no CVA tenderness -Pt with recurrent UTI's every few months, last UTI was about a month ago -Pt states Hematuria is abnormal from her UTIs, LMP ended 10 days ago -Hematuria with clots, less likely glomerular -Renal u/s, pelvic and bladder u/s -Nephrology consult ordered -Urology consult ordered -Repeat UA with straight cath to help verify source of blood (bladder vs vaginal ) IDDM -Pt states she does not know when she last took her insulin -Glucose 378 in ED -Sliding scale for glycemic control for now -Endocrine consult ordered and will await recommendations for further management CHF? 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 - New Patient This patient is new to me today: Yes Date on this admission: 10/31/17 - Critical Care Critical Care patient: No Hospitalist Screening - Colonoscopy Questionnaire Colonoscopy Questionnaire: Colonoscopy Questionnaire - Patient: 50 - 75 years old and never had a screening colonoscopy: No History of colon or rectal polyps, or CA: No History of IBD, Crohn's disease or UC: No History of abdominal radiation therapy as a child: No - Relative: 1 with colon or rectal CA, or polyps at age 60 or younger: No Colon or rectal CA diagnosed at age 45 or younger: No Multiple relatives with colon or rectal CA: No - Outcome: Screening Result: Negative Screen
[2017-10-30] MEDS ORDERED: INSULIN REGULAR HUMAN 100 UNITS/ML *VIAL SQ ONE (21:38)
--- NOTE | 2017-10-30 21:44 | PDOC ---
*Physical Exam - Vital Signs Last Vital Signs Temp Pulse Resp BP Pulse Ox 98.4 F 119 H 16 110/67 97 10/30/17 16:30 10/30/17 16:30 10/30/17 16:30 10/30/17 16:30 10/30/17 16:30 ED Treatment Course - LABORATORY CBC & Chemistry Diagram: 10/30/17 18:41 10/30/17 18:37 - ADDITIONAL ORDERS Additional order review: Laboratory Results 10/30/17 10/30/17 10/30/17 18:41 18:41 18:37 Sodium 136 Potassium 4.1 Chloride 102 Carbon Dioxide 23 Anion Gap 11 BUN 7 Creatinine 0.8 Creat Clearance w eGFR > 60 Random Glucose 378 H* Lactic Acid 1.1 Calcium 9.2 Total Bilirubin 0.5 AST 14 L ALT 18 Alkaline Phosphatase 84 Total Protein 7.6 Albumin 3.6 Urine Color Urine Appearance Urine pH Ur Specific [place] Urine Protein Urine Glucose (UA) Urine Ketones Urine Blood Urine Nitrite Urine Bilirubin Urine Urobilinogen Ur Leukocyte Esterase Urine WBC (Auto) Urine RBC (Auto) Urine Yeast Urine HCG, Qual Acetone, Qual Positive small 1+ H 10/30/17 17:09 Sodium Potassium Chloride Carbon Dioxide Anion Gap BUN Creatinine Creat Clearance w eGFR Random Glucose Lactic Acid Calcium Total Bilirubin AST ALT Alkaline Phosphatase Total Protein Albumin Urine Color Cheryl Urine Appearance Cloudy Urine pH 6.0 Ur Specific [place] 1.032 Urine Protein 3+ H Urine Glucose (UA) 3+ H Urine Ketones Trace H Urine Blood 3+ H Urine Nitrite Negative Urine Bilirubin Negative Urine Urobilinogen Negative Ur Leukocyte Esterase 3+ H Urine WBC (Auto) 1963 Urine RBC (Auto) 2051 Urine Yeast Rare Urine HCG, Qual Negative Acetone, Qual 10/30/17 18:41 RBC 4.99 MCV 85.8 MCHC 34.4 RDW 12.7 MPV 8.4 Neutrophils % 67.8 D Lymphocytes % 24.4 D Monocytes % 6.7 Eosinophils % 0.5 Basophils % 0.6 - Medications Given in the ED: ED Medications Discontinued Medications Generic Name Dose Route Start Last Admin Trade Name Freq PRN Reason Stop Dose Admin Acetaminophen 1,000 mg 10/30/17 18:46 10/30/17 18:56 Ofirmev Injection - IVPB 10/30/17 18:47 1,000 mg ONCE ONE Administration Sodium Chloride 1,000 mls @ 1,000 mls/hr 08/15/18 18:02 10/30/17 18:55 Normal Saline - IV 10/30/17 19:01 1,000 mls/hr ASDIR STA Administration Ceftriaxone Sodium 1,000 mg/ 50 mls @ 100 mls/hr 10/30/17 18:42 10/30/17 19: 03 Dextrose IVPB 10/30/17 19:11 100 mls/hr ONCE ONE Administration Medical Decision Making - Medical Decision Making 10/30/17 21:41 Patient transferred from fast track to the main emergency department given tachycardia, UTI. Presentation consistent with pyelonephritis. Based on previous sensitivities, patient was covered with 1 g of ceftriaxone. Patient also noted to be hyperglycemic with a normal anion gap. Insulin sliding scale ordered by admitting resident. Case discussed with Dr. Shahid, patient admitted to observation. Case discussed in detail with admitting physician including history, physical exam and ancillary studies. Admitting physician has assumed care for the patient, will follow all pending diagnostics and will complete the evaluation and treatment. *DC/Admit/Observation/Transfer Diagnosis at time of Disposition: Dysuria, Pyelonephritis - Discharge Dispostion Condition at time of disposition: Stable Decision to Admit order: Yes - Referrals - Patient Instructions - Post Discharge Activity - Attestations Physician Attestion: 10/30/17 21:43 I, Dr. Fernanda You MD, attest that this document has been prepared under my direction and personally reviewed by me in its entirety. I further attest, that it accurately reflects all work, treatment, procedures and medical decision -making performed by me.
[2017-10-30] MEDS: HEPARIN NA (PORCINE) 5,000 UNITS/ML 1ML VIAL SQ SCH (22:21)
[2017-10-30] MEDS: SODIUM CHLORIDE 1,000 ML IV SCH (22:21)
[2017-10-30] MEDS: INSULIN SLIDING SCALE (NOVOLOG) 1 VIAL SQ SCH (23:13)
[2017-10-31] MEDS: SODIUM CHLORIDE 1,000 ML IV SCH ×3 (01:58→22:14)
[2017-10-31] MEDS ORDERED: INSULIN (NOVOLOG) ASPART 100 UNITS/ML 10ML VIAL ONE ×2 (06:10→11:44)
[2017-10-31] MEDS: INSULIN SLIDING SCALE (NOVOLOG) 1 VIAL SQ SCH ×4 (06:23→17:32)
[2017-10-31] MEDS: HEPARIN NA (PORCINE) 5,000 UNITS/ML 1ML VIAL SQ SCH ×3 (06:23→21:35)
[2017-10-31] MEDS ORDERED: RANITIDINE HCL 150 MG TABLET (FP) PO ONE (08:16)
[2017-10-31 08:22] LABS: HEMATOCRIT 37.3 % (32.4-45.2); MCH 30.2 pg (25.7-33.7); MCHC 34.8 g/dl (32.0-36.0); MEAN CELL VOLUME 86.6 fl (80-96); MEAN PLT VOLUME 8.4 fl (7.5-11.1); PLATELET COUNT 165 K/MM3 (134-434); RDW 12.5 % (11.6-15.6); WHITE BLOOD COUNT 7.6 K/mm3 (4.0-10.0)
[2017-10-31 08:49] LABS: ANION GAP 9 (8-16); BLOOD UREA NITROGEN 8 mg/dL (7-18); CALCIUM 8.1 mg/dL (8.5-10.1); CHLORIDE 104 mmol/L (98-107); CO2 25 mmol/L (21-32); CREATININE 0.7 mg/dL (0.55-1.02); MAGNESIUM 1.8 mg/dL (1.8-2.4); PHOSPHOROUS 3.3 mg/dL (2.5-4.9); POTASSIUM 3.7 mmol/L (3.5-5.1); SODIUM 138 mmol/L (136-145)
[2017-10-31 08:51] LABS: N-TERMINAL BNP 83.55 pg/ml (5-125)
[2017-10-31 08:55] LABS: GLUCOSE,RANDOM 398 mg/dL (74-106)
--- NOTE | 2017-10-31 09:58 | EKG ---
Test Reason : Blood Pressure : / mmHG Vent. Rate : 062 BPM Atrial Rate : 062 BPM P-R Int : 186 ms QRS Dur : 094 ms QT Int : 402 ms P-R-T Axes : 052 046 031 degrees QTc Int : 408 ms NORMAL SINUS RHYTHM NORMAL ECG WHEN COMPARED WITH ECG OF 27-MAY-2017 19:33, NO SIGNIFICANT CHANGE WAS FOUND Confirmed by JOSUE HIUZAR MD ([id number]) on 10/31/2017 9:58:31 AM Referred By: Confirmed By:JOSUE HUIZAR MD
[2017-10-31] MEDS ORDERED: CEFAZOLIN 2 GM/D5W 2 GM/50 ML ML IVPB SCH (10:00)
--- NOTE | 2017-10-31 10:02 | PN ---
<Janine Vail - Last Filed: 10/31/17 17:00> Physical Exam: SUBJECTIVE: Patient is a 27 y/o female with a history of UTI's, IDDM, pancreatitis, bipolar disease, anxiety, who is admitted for a UTI. Patient reports she has no hematuria and no back pain. She reports she has some burning in her chest and a headache. No acute events overnight. OBJECTIVE: Vital Signs Temperature 98.6 F 10/31/17 06:39 Pulse Rate 79 10/31/17 06:39 Respiratory Rate 20 10/31/17 06:39 Blood Pressure 105/58 10/31/17 06:39 O2 Sat by Pulse Oximetry (%) 97 10/30/17 16:30 GENERAL: The patient is awake, alert, and fully oriented, in no acute distress. HEAD: Normal with no signs of trauma. LUNGS: Breath sounds equal, clear to auscultation bilaterally, HEART: Regular rate and rhythm, ABDOMEN: Soft, nondistended, normoactive bowel sounds, negative CVA tenderness , some tenderness to palpation below umbilicus EXTREMITIES: 2+ pulses, warm, well-perfused, no edema. . SKIN: Warm, dry, normal turgor, no rashes or lesions noted CBC, BMP 10/31/17 07:30 10/31/17 07:30 Urine Test Results Urine Color Cheryl 10/30/17 17:09 Urine Appearance Cloudy 10/30/17 17:09 Urine pH 6.0 (5.0-8.0) 10/30/17 17:09 Ur Specific [place] 1.032 (1.001-1.035) 10/30/17 17:09 Urine Protein 3+ (NEGATIVE) H 10/30/17 17:09 Urine Glucose (UA) 3+ (NEGATIVE) H 10/30/17 17:09 Urine Ketones Trace (NEGATIVE) H 10/30/17 17:09 Urine Blood 3+ (NEGATIVE) H 10/30/17 17:09 Urine Nitrite Negative (NEGATIVE) 10/30/17 17:09 Urine Bilirubin Negative (<2.0 mg/dL) 10/30/17 17:09 Ur Leukocyte Esterase 3+ (NEGATIVE) H 10/30/17 17:09 Active Medications Heparin Sodium (Porcine) (Heparin -) 5,000 unit SQ TID [facility] Last Admin: 10/31/17 06:23 Dose: Not Given Sodium Chloride (Normal Saline -) 1,000 mls @ 100 mls/hr IV ASDIR [facility] Last Admin: 10/31/17 01:58 Dose: 100 mls/hr Cefazolin Sodium/Dextrose (Ancef 2 Gm Premixed Ivpb -) 2 gm in 50 mls @ 100 mls /hr IVPB DAILY [facility] Insulin Aspart (Novolog Vial Sliding Scale -) 1 vial SQ ACHS [facility]; Protocol Last Admin: 10/31/17 06:23 Dose: 10 units Pantoprazole Sodium (Protonix -) 40 mg PO DAILY [facility] ASSESSMENT/PLAN: Patient is a 27 y/o female with a history of UTI's, IDDM, pancreatitis, bipolar disease, anxiety, who is admitted for a UTI. Patient is very noncompliant with out patient medications and follow up. She request social work to help her set up visiting nurse services as she states she cannot take care of herself. #UTI - UA 3+ LE, WBC: 1963 - Ceftriaxone 2 gm daily - Bacillus - history of UTI's - f/u bcx, ucx - f/u Dr. Thapa, await cx history #Uncontrolled DM - A1C: 12.5 - SS, need to start insulin therapy - f/u Dr. Garcia, 30 units levemir stat today #questionable CHF - BNP: 83 - EKG no abnormalities - f/u Echo #GERD - ranitidine 1 time dose - pantoprazole 40 dialy #Bipolar - Keppra 500 BID - Topamax 20mg BID - f/u Dr. Rojas #DVT ppx: - Heparin TID Visit type - Emergency Visit Emergency Visit: No - New Patient This patient is new to me today: No - Critical Care Critical Care patient: No <Connor Stout - Last Filed: 10/31/17 18:08> Physical Exam: Patient is c/o having CVA tenderness, will change IV antibiotic to Rocephin 2gm daily IV # Acute UTI on IV Rocephin continue Vital Signs Temperature 98.4 F 10/31/17 16:30 Pulse Rate 77 10/31/17 16:30 Respiratory Rate 20 10/31/17 16:30 Blood Pressure 121/65 10/31/17 16:30 O2 Sat by Pulse Oximetry (%) 98 10/31/17 15:00 CBCD WBC 7.6 K/mm3 (4.0-10.0) 10/31/17 07:30 RBC 4.30 M/mm3 (3.60-5.2) 10/31/17 07:30 Hgb 13.0 GM/dL (10.7-15.3) 10/31/17 07:30 Hct 37.3 % (32.4-45.2) 10/31/17 07:30 MCV 86.6 fl (80-96) 10/31/17 07:30 MCHC 34.8 g/dl (32.0-36.0) 10/31/17 07:30 RDW 12.5 % (11.6-15.6) 10/31/17 07:30 Plt Count 165 K/MM3 (134-434) 10/31/17 07:30 MPV 8.4 fl (7.5-11.1) 10/31/17 07:30 CMP Sodium 138 mmol/L (136-145) 10/31/17 07:30 Potassium 3.7 mmol/L (3.5-5.1) 10/31/17 07:30 Chloride 104 mmol/L (98-107) 10/31/17 07:30 Carbon Dioxide 25 mmol/L (21-32) 10/31/17 07:30 Anion Gap 9 (8-16) 10/31/17 07:30 BUN 8 mg/dL (7-18) 10/31/17 07:30 Creatinine 0.7 mg/dL (0.55-1.02) 10/31/17 07:30 Creat Clearance w eGFR > 60 (>60) 10/31/17 07:30 Random Glucose 398 mg/dL (74-106) H* 10/31/17 07:30 Calcium 8.1 mg/dL (8.5-10.1) L 10/31/17 07:30 Total Bilirubin 0.5 mg/dL (0.2-1.0) 10/30/17 18:37 AST 14 U/L (15-37) L 10/30/17 18:37 ALT 18 U/L (12-78) 10/30/17 18:37 Alkaline Phosphatase 84 U/L (45-117) 10/30/17 18:37 Total Protein 7.6 g/dl (6.4-8.2) 10/30/17 18:37 Albumin 3.6 g/dl (3.4-5.0) 10/30/17 18:37 Current Medications Generic Name Dose Route Start Last Admin Trade Name Candis PRN Reason Stop Dose Admin Heparin Sodium (Porcine) 5,000 unit 10/30/17 22:00 10/31/17 14:50 Heparin - SQ Not Given TID [facility] Sodium Chloride 1,000 mls @ 100 mls/hr 10/30/17 20:15 10/31/17 01:58 Normal Saline - IV 100 mls/hr ASDIR [facility] Administration Ceftriaxone Sodium 2 gm/ 100 mls @ 100 mls/hr 10/31/17 13:45 10/31/17 14:49 Dextrose IVPB 100 mls/hr DAILY [facility] Administration Protocol Insulin Aspart 1 vial 10/31/17 11:45 10/31/17 17:32 Novolog Vial Sliding Scale - SQ 10 units TIDAC [facility] Administration Protocol Insulin Aspart 1 vial 10/31/17 22:00 Novolog Vial Sliding Scale - SQ HS [facility] Protocol Insulin Detemir 25 units 10/31/17 22:00 Levemir Vial SQ BID@0700,2200 [facility] Lactobacillus Acidophilus 1 tab 10/31/17 13:45 10/31/17 14:50 Bacid - PO 1 tab DAILY [facility] Administration Levetiracetam 500 mg 10/31/17 10:00 10/31/17 11:21 Keppra - PO 500 mg BID [facility] Administration Pantoprazole Sodium 40 mg 10/31/17 10:00 10/31/17 10:03 Protonix - PO 40 mg DAILY [facility] Administration Quetiapine Fumarate 100 mg 10/31/17 22:00 Seroquel - PO HS [facility] Topiramate 25 mg 10/31/17 10:00 10/31/17 11:21 Topamax - PO 25 mg BID [facility] Administration Home Medications Medication Instructions Recorded Atorvastatin Ca [Lipitor] 10 mg PO HS #30 tablet 02/17/17 Quetiapine Fumarate [Seroquel] 100 tab PO HS 02/17/17 Clonazepam 1 mg PO BID 10/31/17 Divalproex *ER* [Depakote *ER* -] 1,000 mg PO HS 10/31/17 Insulin Lispro Protamin/Lispro 18 unit SQ TID 10/31/17 [Humalog Mix 75-25 Vial] Pnv No.95/Ferrous Fum/Folic AC 1 each PO DAILY 10/31/17 [ Vitamin Tablet] Risperidone [Risperdal] 2 mg PO DAILY 10/31/17
[2017-10-31] MEDS: PANTOPRAZOLE 40 MG TABLET (FP) PO SCH (10:03)
--- NOTE | 2017-10-31 10:17 | CONSULT ---
Consult Consult Specialty:: Endocrinology Referred by:: Van Shahid MD Reason for Consultation:: Hyperglycemia - History of Present Illness Chief Complaint: Dysuria, Hematuria History of Present Illness: This is a 27 yo female withh/o T1DM from age12, recurrent pancreatitis, frequent UTIs, Bipolar, anxiety, Questionable CHF history, presented to the ED with complaint of 24 hours of dysuria, hematuria, and suprapubic pain. She states she has frequent UTI's and her last UTI was about a month ago. She received oral abx at that time and does not know which one. Pt admitted and treated with IV Abx. C/O polyuria, Polydipasia and nocturia. FS at home 200 to 400. Rare hypoglycemia. Last admission to [facility] with hypoglycemia of 37 about 2 weeks ago. Admission with DKA about a year ago. Currently on Humalog 75/ 25 60 units BID. Last dose yesterday around 5 P.M. Was on Pump until 2010 or which was lost during hospitalization. No visual symptoms. Last Oph visit about a year ago, - History Source History Provided By: Patient, Medical Record - Past Medical History POUCH MAKER: Yes: Seizure Pulmonary: Yes: Asthma Gastrointestinal: Yes: Diverticulosis, Pancreatitis (recurring abdominal pain hospitalizations with elevated lipases and normal amylases attributed to pancreatitis) Hepatobiliary: Yes: Other (fatty liver) ...LMP: 02/17/17 Psych: Yes: Bipolar Endocrine: Yes: Diabetes Mellitus (poorly controlled), Hypothyroidism - Past Surgical History Past Surgical History: Yes: Colonoscopy, Upper Endoscopy - Alcohol/Substance Use Hx Alcohol Use: No History of Substance Use: reports: None - Smoking History Smoking history: Former smoker Have you smoked in the past 12 months: No Aproximately how many cigarettes per day: 0 If you are a former smoker, when did you quit?: 2011 - Social History Usual Living Arrangement: With Parent ADL: Independent Occupation: unemployed History of Recent Travel: No Home Medications - Allergies Allergies/Adverse Reactions: Allergies Allergy/AdvReac Type Severity Reaction Status Date / Time mushroom Allergy Verified 10/30/17 16:30 SEAFOOD Allergy Severe ANAPHYLAXIS Uncoded 10/30/17 16:30 - Home Medications Home Medications: Ambulatory Orders Albuterol Sulfate Inhaler - [Ventolin HFA Inhaler -] 1 puff IH Q8H 03/22/16 clonazePAM [Klonopin -] 0.5 mg PO BID PRN 05/23/16 Topiramate [Topamax -] 25 mg PO BID #60 tablet 06/10/16 Insulin Aspart Prot/Insuln Asp [Novolog Mix 70-30 Flexpen Syrn] 60 units SQ BID@ 0700,2200 08/03/16 Atorvastatin Ca [Lipitor] 10 mg PO HS #30 tablet 02/17/17 Quetiapine Fumarate [Seroquel] 100 tab PO HS 02/17/17 Risperidone [Risperdal] 3 mg PO DAILY 02/17/17 levETIRAcetam [Keppra -] 500 mg PO BID 02/17/17 Family Disease History - Family Disease History Family Disease History: Diabetes: Father ( of pancreatitis, alcoholic), Heart Disease: Mother ([place] in her 30's), Other: Father Review of Systems - Review of Systems Constitutional: reports: No Symptoms Eyes: reports: No Symptoms HENT: reports: No Symptoms Cardiovascular: reports: No Symptoms Respiratory: reports: No Symptoms Gastrointestinal: reports: No Symptoms Genitourinary: reports: Dysuria, Hematuria Musculoskeletal: reports: No Symptoms Integumentary: reports: No Symptoms Neurological: reports: No Symptoms Endocrine: reports: No Symptoms Physical Exam Vital Signs: Vital Signs Temperature 98.6 F 10/31/17 06:39 Pulse Rate 79 10/31/17 06:39 Respiratory Rate 20 10/31/17 06:39 Blood Pressure 105/58 10/31/17 06:39 O2 Sat by Pulse Oximetry (%) 97 10/30/17 16:30 Constitutional: Yes: No Distress, Calm Eyes: Yes: Conjunctiva Clear, EOM Intact HENT: Yes: Atraumatic, Normocephalic Neck: Yes: Supple, Trachea Midline Cardiovascular: Yes: Regular Rate and Rhythm Respiratory: Yes: Regular, CTA Bilaterally Gastrointestinal: Yes: Normal Bowel Sounds, Soft Musculoskeletal: Yes: WNL Extremities: Yes: WNL Edema: No Neurological: Yes: Alert, Oriented Labs: CBC, BMP 10/31/17 07:30 10/31/17 07:30 Assessment/Plan AP: UTI with Hematuria T1DM Nutrition consult Diet exercise discussed Diabetes education done BGM QACHS Start Levemir 30 units stat for now. Unclear how much of the Insulin requirement at home is from nonadherance to diet NOvolog SS coverage IV Abx Will F/U
[2017-10-31] MEDS ORDERED: PT OWN MED DRAWER 7, Y5N ONE (11:13)
[2017-10-31] MEDS: TOPIRAMATE 25 MG TABLET (FP) PO SCH ×2 (11:21→21:34)
[2017-10-31] MEDS: levETIRAcetam 500 MG TABLET (FP) PO SCH ×2 (11:21→21:34)
[2017-10-31] MEDS ORDERED: INSULIN (LEVEMIR) 100 UNITS/ML UNITS SQ ONE ×2 (11:34→12:00)
--- NOTE | 2017-10-31 12:30 | ECHO ---
Name: TRISTAN DAVIS Exam:Adult Echocardiogram Study Date: 10/31/2017 07:32 AM Age: 27 yrs Reason For Study: CHF Height: 68 in Weight: 248 lb BSA: 2.2 m2 MMode/2D Measurements & Calculations IVSd: 0.98 cm Ao root diam: 2.9 cm LVIDd: 4.6 cm LA dimension: 3.0 cm LVIDs: 2.6 cm LVPWd: 0.97 cm EDV(Teich): 95.9 ml ESV(Teich): 24.5 ml Doppler Measurements & Calculations MV E max latisha: 89.7 cm/sec TR max latisha: 217.2 cm/sec MV A max latisha: 62.6 cm/sec TR max P.9 mmHg MV E/A: 1.4 MV dec time: 0.38 sec Med Peak E' Latisha: 9.8 cm/sec Med E/e': 9.2 Lat Peak E' Latisha: 12.7 cm/sec Lat E/e': 7.0 Procedure A complete two-dimensional transthoracic echocardiogram was performed (2D, M-mode, Doppler and color flow Doppler). Left Ventricle The left ventricular size, thickness and function are normal. The left ventricular ejection fraction is normal. Ejection Fraction = 60-65%. The left ventricular wall motion is normal. Right Ventricle The right ventricle is normal in size and function. Atria Normal left and right atrial size and function. Mitral Valve There is no mitral regurgitation noted. Tricuspid Valve There is trace tricuspid regurgitation. There was insufficient TR detected to calculate RV systolic p ressure. Aortic Valve No hemodynamically significant valvular aortic stenosis. No aortic regurgitation is present. Pulmonic Valve There is no pulmonic valvular regurgitation. Great Vessels The aortic root is normal size. Pericardium/Pleura There is no pericardial effusion. Interpretation Summary The left ventricular size, thickness and function are normal. The right ventricle is normal in size and function. There is trace tricuspid regurgitation. MD Michael Meredith 10/31/2017 12:29 PM
--- NOTE | 2017-10-31 13:21 | CON.GU ---
Consult - History of Present Illness History of Present Illness: 27 yo female with recurrent uti now admitted with flank pain, hematuria, dysuria. Currently on Ancef. Pt is Insulin Dependant Diabetic. No UTI associated with sexual activity. 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: Yes: Seizure Pulmonary: Yes: Asthma Gastrointestinal: Yes: Diverticulosis, Pancreatitis (recurring abdominal pain hospitalizations with elevated lipases and normal amylases attributed to pancreatitis) Hepatobiliary: Yes: Other (fatty liver) ...LMP: 02/17/17 Psych: Yes: Bipolar Endocrine: Yes: Diabetes Mellitus (poorly controlled), Hypothyroidism - Past Surgical History Past Surgical History: Yes: Colonoscopy, Upper Endoscopy - Alcohol/Substance Use Hx Alcohol Use: No History of Substance Use: reports: None - Smoking History Smoking history: Former smoker Have you smoked in the past 12 months: No Aproximately how many cigarettes per day: 0 If you are a former smoker, when did you quit?: 2011 - Social History Usual Living Arrangement: With Parent ADL: Independent Occupation: unemployed History of Recent Travel: No Home Medications - Allergies Allergies/Adverse Reactions: Allergies Allergy/AdvReac Type Severity Reaction Status Date / Time mushroom Allergy Verified 10/30/17 16:30 SEAFOOD Allergy Severe ANAPHYLAXIS Uncoded 10/30/17 16:30 - Home Medications Home Medications: Ambulatory Orders Albuterol Sulfate Inhaler - [Ventolin HFA Inhaler -] 1 puff IH Q8H 03/22/16 clonazePAM [Klonopin -] 0.5 mg PO BID PRN 05/23/16 Topiramate [Topamax -] 25 mg PO BID #60 tablet 06/10/16 Insulin Aspart Prot/Insuln Asp [Novolog Mix 70-30 Flexpen Syrn] 60 units SQ BID@ 0700,2200 08/03/16 Atorvastatin Ca [Lipitor] 10 mg PO HS #30 tablet 02/17/17 Quetiapine Fumarate [Seroquel] 100 tab PO HS 02/17/17 Risperidone [Risperdal] 3 mg PO DAILY 02/17/17 levETIRAcetam [Keppra -] 500 mg PO BID 02/17/17 Family Disease History - Family Disease History Family Disease History: Diabetes: Father ( of pancreatitis, alcoholic), Heart Disease: Mother (NE in her 30's), Other: Father Physical Exam- Vital Signs: Vital Signs Temperature 98.6 F 10/31/17 06:39 Pulse Rate 79 10/31/17 06:39 Respiratory Rate 20 10/31/17 06:39 Blood Pressure 105/58 10/31/17 06:39 O2 Sat by Pulse Oximetry (%) 97 10/30/17 16:30 Renal/: Yes: Hematuria Labs: CBC, BMP 10/31/17 07:30 10/31/17 07:30 Imaging - Results Ultrasound: Report Reviewed Problem List - Problems (1) Recurrent UTI Assessment/Plan: ancef while awaiting cultures. NO anatomic urinary tract abnormality Code(s): N39.0 - URINARY TRACT INFECTION, SITE NOT SPECIFIED
[2017-10-31] MEDS ORDERED: DEXTROSE 5%-WATER 100 ML IVPB ONE (14:38)
[2017-10-31] MEDS: CEFTRIAXONE 2 GM in DEXTROSE 5%-WATER 100 ML IVPB SCH (14:49)
[2017-10-31] MEDS: LACTOBACILLUS ACIDOPHILUS 1 TABLET PO SCH (14:50)
[2017-10-31] MEDS: INSULIN (LEVEMIR) 100 UNITS/ML UNITS SQ SCH (21:50)
[2017-10-31] MEDS ORDERED: INSULIN SLIDING SCALE (NOVOLOG) 1 VIAL SQ SCH (22:00)
[2017-10-31] MEDS ORDERED: QUEtiapine FUMARATE 100 MG TABLET (FP) PO SCH (22:00)
[2017-11-01] MEDS: HEPARIN NA (PORCINE) 5,000 UNITS/ML 1ML VIAL SQ SCH ×2 (06:38→13:01)
[2017-11-01] MEDS: INSULIN SLIDING SCALE (NOVOLOG) 1 VIAL SQ SCH (06:40)
[2017-11-01] MEDS: INSULIN (LEVEMIR) 100 UNITS/ML UNITS SQ SCH (06:42)
[2017-11-01 08:13] LABS: HEMATOCRIT 38.2 % (32.4-45.2); HEMOGLOBIN 13.2 GM/dL (10.7-15.3); MCHC 34.7 g/dl (32.0-36.0); MEAN CELL VOLUME 86.6 fl (80-96); MEAN PLT VOLUME 8.4 fl (7.5-11.1); PLATELET COUNT 166 K/MM3 (134-434); RBC 4.41 M/mm3 (3.60-5.2); RDW 12.7 % (11.6-15.6); WHITE BLOOD COUNT 7.8 K/mm3 (4.0-10.0)
[2017-11-01 08:22] LABS: ANION GAP 8 (8-16); BLOOD UREA NITROGEN 9 mg/dL (7-18); CALCIUM 8.4 mg/dL (8.5-10.1); CHLORIDE 111 mmol/L (98-107); CO2 24 mmol/L (21-32); CREATININE 0.6 mg/dL (0.55-1.02); GLUCOSE,RANDOM 291 mg/dL (74-106); POTASSIUM 3.6 mmol/L (3.5-5.1); SODIUM 143 mmol/L (136-145)
--- NOTE | 2017-11-01 08:49 | PN ---
Progress Note (short form) - Note Progress Note: Feels better No hematuria Vital Signs Period Temp Pulse Resp BP Sys/Argueta Pulse Ox Last 24 Hr 98.1 F-99.2 F 69-77 18-20 88-148/44-89 98-98 PE: AOx3 Neck: Supple No JVD HEENT:PERRL EOMI Lungs: CTA CVs: S1S2 Abd: Benign Ext: No edam Neuro: No focal deficit CMP Sodium 143 mmol/L (136-145) 11/01/17 07:30 Potassium 3.6 mmol/L (3.5-5.1) 11/01/17 07:30 Chloride 111 mmol/L (98-107) H 11/01/17 07:30 Carbon Dioxide 24 mmol/L (21-32) 11/01/17 07:30 Anion Gap 8 (8-16) 11/01/17 07:30 BUN 9 mg/dL (7-18) 11/01/17 07:30 Creatinine 0.6 mg/dL (0.55-1.02) 11/01/17 07:30 Creat Clearance w eGFR > 60 (>60) 11/01/17 07:30 POC Glucometer 282 UNITS (80-120) 11/01/17 06:39 Random Glucose 291 mg/dL (74-106) H 11/01/17 07:30 Hemoglobin A1c % 12.5 % (4.8-6.0) H 10/31/17 07:30 Lactic Acid 1.1 mmol/L (0.0-2.0) 10/30/17 18:41 Calcium 8.4 mg/dL (8.5-10.1) L 11/01/17 07:30 Phosphorus 3.3 mg/dL (2.5-4.9) 10/31/17 07:30 Magnesium 1.8 mg/dL (1.8-2.4) 10/31/17 07:30 Total Bilirubin 0.5 mg/dL (0.2-1.0) 10/30/17 18:37 AST 14 U/L (15-37) L 10/30/17 18:37 ALT 18 U/L (12-78) 10/30/17 18:37 Alkaline Phosphatase 84 U/L (45-117) 10/30/17 18:37 B-Natriuretic Peptide 83.55 pg/ml (5-125) 10/31/17 07:30 Total Protein 7.6 g/dl (6.4-8.2) 10/30/17 18:37 Albumin 3.6 g/dl (3.4-5.0) 10/30/17 18:37 Current Medications Generic Name Dose Route Start Last Admin Trade Name Candis PRN Reason Stop Dose Admin Heparin Sodium (Porcine) 5,000 unit 10/30/17 22:00 11/01/17 06:38 Heparin - SQ Not Given TID KASIA Sodium Chloride 1,000 mls @ 100 mls/hr 10/30/17 20:15 10/31/17 22:14 Normal Saline - IV 100 mls/hr ASDIR KASIA Administration Ceftriaxone Sodium 2 gm/ 100 mls @ 100 mls/hr 10/31/17 13:45 10/31/17 14:49 Dextrose IVPB 100 mls/hr DAILY KASIA Administration Protocol Insulin Aspart 1 vial 10/31/17 11:45 11/01/17 06:40 Novolog Vial Sliding Scale - SQ 10 units TIDAC KASIA Administration Protocol Insulin Aspart 1 vial 10/31/17 22:00 10/31/17 21:49 Novolog Vial Sliding Scale - SQ 6 units HS KASIA Administration Protocol Insulin Detemir 25 units 10/31/17 22:00 11/01/17 06:42 Levemir Vial SQ 25 units BID@0700,2200 KASIA Administration Lactobacillus Acidophilus 1 tab 10/31/17 13:45 10/31/17 14:50 Bacid - PO 1 tab DAILY KSAIA Administration Levetiracetam 500 mg 10/31/17 10:00 10/31/17 21:34 Keppra - PO 500 mg BID KASIA Administration Pantoprazole Sodium 40 mg 10/31/17 10:00 10/31/17 10:03 Protonix - PO 40 mg DAILY KASIA Administration Quetiapine Fumarate 100 mg 10/31/17 22:00 10/31/17 21:34 Seroquel - PO 100 mg HS KASIA Administration Topiramate 25 mg 10/31/17 10:00 10/31/17 21:34 Topamax - PO 25 mg BID KASIA Administration AP: UTI with Hematuria T1DM Nutrition consult Diet exercise discussed Diabetes education done BGM QACHS Levemir 25 units BID Increase NOvolog SS coverage IV Abx Will F/U
[2017-11-01] MEDS ORDERED: DEXTROSE 5%-WATER 100 ML IVPB ONE (09:45)
[2017-11-01] MEDS ORDERED: PT OWN MED DRAWER 7, Y5N ONE (09:45)
[2017-11-01] MEDS: CEFTRIAXONE 2 GM in DEXTROSE 5%-WATER 100 ML IVPB SCH (09:47)
[2017-11-01] MEDS: LACTOBACILLUS ACIDOPHILUS 1 TABLET PO SCH (09:48)
[2017-11-01] MEDS: TOPIRAMATE 25 MG TABLET (FP) PO SCH (09:48)
[2017-11-01] MEDS: PANTOPRAZOLE 40 MG TABLET (FP) PO SCH (09:53)
[2017-11-01] MEDS ORDERED: risperiDONE 1 MG TABLET (FP) PO SCH ×2 (10:00→22:00)
[2017-11-01] MEDS ORDERED: INSULIN SLIDING SCALE (NOVOLOG) 1 VIAL SQ SCH (10:06)
--- NOTE | 2017-11-01 11:01 | PN ---
Physical Exam: SUBJECTIVE: Patient is a 27 y/o female with a history of UTI's, IDDM, pancreatitis, bipolar disease, anxiety, who is admitted for a UTI. Patient reports she has no hematuria and no back pain. She reports she has some burning in her chest and a headache. No acute events overnight. OBJECTIVE: Vital Signs Temperature 99.2 F 11/01/17 09:23 Pulse Rate 89 11/01/17 09:23 Respiratory Rate 18 11/01/17 09:23 Blood Pressure 105/56 11/01/17 09:23 O2 Sat by Pulse Oximetry (%) 98 11/01/17 06:45 GENERAL: The patient is awake, alert, and fully oriented, in no acute distress. HEAD: Normal with no signs of trauma. LUNGS: Breath sounds equal, clear to auscultation bilaterally, HEART: Regular rate and rhythm, ABDOMEN: Soft, nondistended, normoactive bowel sounds, negative CVA tenderness , some tenderness to palpation below umbilicus EXTREMITIES: 2+ pulses, warm, well-perfused, no edema. . SKIN: Warm, dry, normal turgor, no rashes or lesions noted CBC, BMP 11/01/17 07:30 11/01/17 07:30 Microbiology 10/30/17 17:09 Urine - Urine Clean Catch Urine Culture - Final 10/30/17 18:41 Blood - Peripheral Venous Blood Culture - Preliminary NO GROWTH OBTAINED AFTER 24 HOURS, INCUBATION TO CONTINUE FOR 4 DAYS. 10/30/17 18:25 Blood - Peripheral Venous Blood Culture - Preliminary NO GROWTH OBTAINED AFTER 24 HOURS, INCUBATION TO CONTINUE FOR 4 DAYS. Active Medications Atorvastatin Calcium (Lipitor -) 10 mg PO HS [facility] Divalproex Sodium (Depakote -) 1,000 mg PO HS [facility] Heparin Sodium (Porcine) (Heparin -) 5,000 unit SQ TID [facility] Last Admin: 11/01/17 06:38 Dose: Not Given Sodium Chloride (Normal Saline -) 1,000 mls @ 100 mls/hr IV ASDIR [facility] Last Admin: 10/31/17 22:14 Dose: 100 mls/hr Ceftriaxone Sodium 2 gm/ (Dextrose) 100 mls @ 100 mls/hr IVPB DAILY [facility]; Protocol Last Admin: 11/01/17 09:47 Dose: 100 mls/hr Insulin Aspart (Novolog Vial Sliding Scale -) 1 vial SQ HS [facility]; Protocol Last Admin: 10/31/17 21:49 Dose: 6 units Insulin Aspart (Novolog Vial Sliding Scale -) 1 vial SQ TIDAC [facility]; Protocol Insulin Detemir (Levemir Vial) 25 units SQ BID@0700,2200 [facility] Last Admin: 11/01/17 06:42 Dose: 25 units Lactobacillus Acidophilus (Bacid -) 1 tab PO DAILY [facility] Last Admin: 11/01/17 09:48 Dose: 1 tab Pantoprazole Sodium (Protonix -) 40 mg PO DAILY [facility] Last Admin: 11/01/17 09:53 Dose: 40 mg Quetiapine Fumarate (Seroquel -) 100 mg PO [facility] Last Admin: 10/31/17 21:34 Dose: 100 mg Risperidone (Risperdal -) 2 mg PO DAILY [facility] Last Admin: 11/01/17 09:48 Dose: 2 mg Topiramate (Topamax -) 25 mg PO BID [facility] Last Admin: 11/01/17 09:48 Dose: 25 mg ASSESSMENT/PLAN: Patient is a 27 y/o female with a history of UTI's, IDDM, pancreatitis, bipolar disease, anxiety, who is admitted for a UTI. Patient is very noncompliant with out patient medications and follow up. She request social work to help her set up visiting nurse services as she states she cannot take care of herself. #UTI - UA 3+ LE, WBC: 1963 - Ceftriaxone 2 gm daily - Bacillus - history of UTI's - bcx and urine cx negative - f/u Dr. Thapa, await cx history #Uncontrolled DM - A1C: 12.5 - SS, f/u BGM's - f/u Dr. Garcia; levemir 25 units bid #questionable CHF - BNP: 83 - EKG no abnormalities - f/u Echo #GERD - ranitidine 1 time dose - pantoprazole 40 dialy #Bipolar - Risperidone 2mg BID - seroquel 100 mg po hs #seizure disorder - topiramate 25 mg po #DVT ppx: - Heparin TID dispo: f/u clinical symptoms tomorrow Visit type - Emergency Visit Emergency Visit: No - New Patient This patient is new to me today: No - Critical Care Critical Care patient: No
[2017-11-01] MEDS ORDERED: DIVALPROEX NA *ER* EXTEND REL 500 MG TABLET.SA (FP) PO ONE (11:08)
[2017-11-01 11:14] VITALS: BMI 37.2
[2017-11-01] MEDS ORDERED: DIVALPROEX SODIUM 500 MG TABLET E.C. PO SCH ×2 (12:00→22:00)
--- NOTE | 2017-11-01 14:35 | PN ---
Teaching Attending Note Name of Resident: Janine Vail ATTENDING PHYSICIAN STATEMENT I saw and evaluated the patient. I reviewed the resident's note and discussed the case with the resident. I agree with the resident's findings and plan as documented. SUBJECTIVE: Patient is comfotable with no acute distress, No CVa distress OBJECTIVE: Vital Signs Temperature 99.2 F 11/01/17 09:23 Pulse Rate 89 11/01/17 09:23 Respiratory Rate 18 11/01/17 09:23 Blood Pressure 105/56 11/01/17 09:23 O2 Sat by Pulse Oximetry (%) 98 11/01/17 06:45 CBCD WBC 7.8 K/mm3 (4.0-10.0) 11/01/17 07:30 RBC 4.41 M/mm3 (3.60-5.2) 11/01/17 07:30 Hgb 13.2 GM/dL (10.7-15.3) 11/01/17 07:30 Hct 38.2 % (32.4-45.2) 11/01/17 07:30 MCV 86.6 fl (80-96) 11/01/17 07:30 MCHC 34.7 g/dl (32.0-36.0) 11/01/17 07:30 RDW 12.7 % (11.6-15.6) 11/01/17 07:30 Plt Count 166 K/MM3 (134-434) 11/01/17 07:30 MPV 8.4 fl (7.5-11.1) 11/01/17 07:30 CMP Sodium 143 mmol/L (136-145) 11/01/17 07:30 Potassium 3.6 mmol/L (3.5-5.1) 11/01/17 07:30 Chloride 111 mmol/L (98-107) H 11/01/17 07:30 Carbon Dioxide 24 mmol/L (21-32) 11/01/17 07:30 Anion Gap 8 (8-16) 11/01/17 07:30 BUN 9 mg/dL (7-18) 11/01/17 07:30 Creatinine 0.6 mg/dL (0.55-1.02) 11/01/17 07:30 Creat Clearance w eGFR > 60 (>60) 11/01/17 07:30 Random Glucose 291 mg/dL (74-106) H 11/01/17 07:30 Calcium 8.4 mg/dL (8.5-10.1) L 11/01/17 07:30 Total Bilirubin 0.5 mg/dL (0.2-1.0) 10/30/17 18:37 AST 14 U/L (15-37) L 10/30/17 18:37 ALT 18 U/L (12-78) 10/30/17 18:37 Alkaline Phosphatase 84 U/L (45-117) 10/30/17 18:37 Total Protein 7.6 g/dl (6.4-8.2) 10/30/17 18:37 Albumin 3.6 g/dl (3.4-5.0) 10/30/17 18:37 Current Medications Generic Name Dose Route Start Last Admin Trade Name Freq PRN Reason Stop Dose Admin Atorvastatin Calcium 10 mg 11/01/17 22:00 Lipitor - PO HS KASIA Divalproex Sodium 500 mg 11/01/17 12:00 11/01/17 12:34 Depakote - PO 500 mg BID KASIA Administration Heparin Sodium (Porcine) 5,000 unit 10/30/17 22:00 11/01/17 13:01 Heparin - SQ Not Given TID KASIA Sodium Chloride 1,000 mls @ 100 mls/hr 10/30/17 20:15 10/31/17 22:14 Normal Saline - IV 100 mls/hr ASDIR KAISA Administration Ceftriaxone Sodium 2 gm/ 100 mls @ 100 mls/hr 10/31/17 13:45 11/01/17 09:47 Dextrose IVPB 100 mls/hr DAILY KASIA Administration Protocol Insulin Aspart 1 vial 10/31/17 22:00 10/31/17 21:49 Novolog Vial Sliding Scale - SQ 6 units HS KASIA Administration Protocol Insulin Aspart 1 vial 11/01/17 10:06 11/01/17 11:29 Novolog Vial Sliding Scale - SQ 12 units TIDAC KASIA Administration Protocol Insulin Detemir 25 units 10/31/17 22:00 11/01/17 06:42 Levemir Vial SQ 25 units BID@0700,2200 KASIA Administration Lactobacillus Acidophilus 1 tab 10/31/17 13:45 11/01/17 09:48 Bacid - PO 1 tab DAILY KASIA Administration Pantoprazole Sodium 40 mg 10/31/17 10:00 11/01/17 09:53 Protonix - PO 40 mg DAILY KASIA Administration Quetiapine Fumarate 100 mg 10/31/17 22:00 10/31/17 21:34 Seroquel - PO 100 mg HS KASIA Administration Risperidone 2 mg 11/01/17 22:00 Risperdal - PO BID KASIA Topiramate 25 mg 10/31/17 10:00 11/01/17 09:48 Topamax - PO 25 mg BID KASIA Administration Home Medications Medication Instructions Recorded Atorvastatin Ca [Lipitor] 10 mg PO HS #30 tablet 02/17/17 Quetiapine Fumarate [Seroquel] 100 tab PO HS 02/17/17 Clonazepam 1 mg PO BID 10/31/17 Divalproex *ER* [Depakote *ER* -] 500 mg PO BID 10/31/17 Pnv No.95/Ferrous Fum/Folic AC 1 each PO DAILY 10/31/17 [ Vitamin Tablet] Risperidone [Risperdal] 2 mg PO BID 10/31/17 Cefuroxime Axetil [Ceftin -] 250 mg PO BID #8 tablet 11/01/17 Divalproex [Depakote -] 500 mg PO BID tablet.ec 11/01/17 Insulin Detemir [Levemir Flextouch] 25 unit SQ BID #15 insuln.pen 11/01/17 Lactobacillus Acidophilus [Bacid -] 1 tab PO DAILY #5 tab 11/01/17 PE exam: as per resident patient has acromegaly features. ASSESSMENT AND PLAN: Patient is a 27 y/o female with a history of UTI's, IDDM, pancreatitis, bipolar disease, anxiety, who is admitted for a UTI. Patient is very noncompliant with out patient medications and follow up. She request social work to help her set up visiting nurse services as she states she cannot take care of herself. #Acute UTI/Pylonephritis On Rocephin will discharge the patient on Ceftin 50mmg Bid x 5 more days #Uncontrolled DM ,Levemir as per Dr. Garcia, 25unit bid follow with #GERD continue PPI #Bipolar on keppera/Topamax will discharge the patient home.
[2017-11-01 14:56] VITALS: BP 93/64; PULSE 85; TEMP 98.1
--- NOTE | 2017-11-01 17:24 | DS ---
Physical Exam: SUBJECTIVE: Patient is a 27 y/o female with a history of UTI's, IDDM, pancreatitis, bipolar disease, anxiety, who is admitted for a UTI. Patient reports she has no hematuria and no back pain. She reports she has some burning in her chest and a headache. No acute events overnight. OBJECTIVE: Vital Signs Period Temp Pulse Resp BP Sys/Argueta Pulse Ox Last 24 Hr 98.1 F-99.2 F 69-89 18-20 88-120/44-64 98-98 PHYSICAL EXAM GENERAL: The patient is awake, alert, and fully oriented, in no acute distress. HEAD: Normal with no signs of trauma. LUNGS: Breath sounds equal, clear to auscultation bilaterally, HEART: Regular rate and rhythm, ABDOMEN: Soft, nondistended, normoactive bowel sounds, negative CVA tenderness , some tenderness to palpation below umbilicus EXTREMITIES: 2+ pulses, warm, well-perfused, no edema. SKIN: Warm, dry, normal turgor, no rashes or lesions noted LABS Laboratory Results - last 24 hr 10/31/17 10/31/17 11/01/17 17:31 21:47 06:39 WBC RBC Hgb Hct MCV MCH MCHC RDW Plt Count MPV Sodium Potassium Chloride Carbon Dioxide Anion Gap BUN Creatinine Creat Clearance w eGFR POC Glucometer 270 334 282 Random Glucose Calcium 11/01/17 11/01/17 11/01/17 07:30 07:30 11:08 WBC 7.8 RBC 4.41 Hgb 13.2 Hct 38.2 MCV 86.6 MCH 30.0 MCHC 34.7 RDW 12.7 Plt Count 166 MPV 8.4 Sodium 143 Potassium 3.6 Chloride 111 H Carbon Dioxide 24 Anion Gap 8 BUN 9 Creatinine 0.6 Creat Clearance w eGFR > 60 POC Glucometer 257 Random Glucose 291 H Calcium 8.4 L HOSPITAL COURSE: Date of Admission:10/30/17 Patient is a 27 y/o female with a history of UTI's, IDDM, pancreatitis, bipolar disease, anxiety, who presented for pain on urination. Patient was started on Ceftriaxone. UA showed 3+ LE, WBC: 1963, ucx did not grow anything. Dr. Rizvi was consulted for the patient and found no reason for anatomic urinary abnormalities. Patient presented with uncontrolled diabetes. Her A1C was 12. Dr. Rojas was consulted to follow up and began the patient on levamir 25 units BID. She was educated on diet management and eating to control her diabetes. Discussed follow up in one week to continue management of her diabetes. Patient is going to take 4 days of Ceftin as an outpatient. Patient will take Bacillus with the antibiotics. Patient stable and discharged home Renal US: no abnormalities of the kidneys CXR: no acute pathology Date of Discharge: 11/01/17 Minutes to complete discharge: 35 Discharge Summary Reason For Visit: PYELONEPHRITIS Condition: Improved - Instructions Diet, Activity, Other Instructions: You presented to the ED because of pain on urination. You were found to have a UTI. We treated you with antibiotics. You will continue to take Ceftin 250 mg by mouth twice a day for four days. You were also found to have high blood sugar. It is very important that you control your sugars levels as they can have a termite treater helper effects on your organs, including kidney disease and heart disease. You were seen by the theater technician , Dr. Rojas, who started you on insulin to manage your diabetes. You will continue to take Levemir 25 units twice a day, once in the morning and once before bedtime. You should follow up with Dr. Rojas within one week. You can continue to take your other medications as prescribed. You should follow up with your primary care physician within one week. You should return to the Emergency Department if you have worsening of symptoms , diarrhea, nausea, chest pain, shortness of breath, or headache. Referrals: Dorian Thapa MD [Staff Physician] - Trey Richardson MD [Staff Physician] - 1 Week Ben Rojas MD [Staff Physician] - 1 Week Disposition: HOME - Home Medications Comprehensive Discharge Medication List: Ambulatory Orders Atorvastatin Ca [Lipitor] 10 mg PO HS #30 tablet 02/17/17 Quetiapine Fumarate [Seroquel] 100 tab PO HS 02/17/17 Clonazepam 1 mg PO BID 10/31/17 Divalproex *ER* [Depakote *ER* -] 500 mg PO BID 10/31/17 Pnv No.95/Ferrous Fum/Folic AC [ Vitamin Tablet] 1 each PO DAILY Risperidone [Risperdal] 2 mg PO BID 10/31/17 Cefuroxime Axetil [Ceftin -] 250 mg PO BID #8 tablet 11/01/17 Divalproex [Depakote -] 500 mg PO BID tablet.ec 11/01/17 Insulin Glargine,Hum.rec.anlog [Lantus Solostar PEN (NF)] 25 units SQ BID #15 pen 11/01/17 Lactobacillus Acidophilus [Bacid -] 1 tab PO DAILY #5 tab 11/01/17 This patient is new to me today: No Emergency Visit: No Critical Care patient: No - Discharge Referral Referred to [facility] No
[2017-11-01] MEDS ORDERED: ATORVASTATIN CA 10 MG TABLET (FP) PO SCH (22:00)
== END 2017-11-01 15:24 | disposition home or self-care (01) ==
LOC: JER 16:11 → JERFT 16:11 → JERBED 21:44 → J8W 23:59
PROVIDERS: ADMIT Internal Medicine; ATTEND Internal Medicine
PROC: 3E03329 Introduction of Other Anti-infective into Peripheral Vein, Percutaneous Approach (ICD-10-PCS; principal; 2017-10-30)
PROC: 3E033NZ Introduction of Analgesics, Hypnotics, Sedatives into Peripheral Vein, Percutaneous Approach (ICD-10-PCS; 2017-10-30)
PROC: 3E0337Z Introduction of Electrolytic and Water Balance Substance into Peripheral Vein, Percutaneous Approach (ICD-10-PCS; 2017-10-30)
PROC: 3E013VG Introduction of Insulin into Subcutaneous Tissue, Percutaneous Approach (ICD-10-PCS; 2017-10-30)
DX: N39.0 Urinary tract infection, site not specified (principal); R31.9 Hematuria, unspecified; N12 Tubulo-interstitial nephritis, not specified as acute or chronic; E10.65 Type 1 diabetes mellitus with hyperglycemia; G40.909 Epilepsy, unspecified, not intractable, without status epilepticus; F41.9 Anxiety disorder, unspecified; F31.9 Bipolar disorder, unspecified; K21.9 Gastro-esophageal reflux disease without esophagitis; E66.9 Obesity, unspecified; Z68.37 Body mass index [BMI] 37.0-37.9, adult; Z79.4 Long term (current) use of insulin; Z87.440 Personal history of urinary (tract) infections; Z87.19 Personal history of other diseases of the digestive system; Z87.891 Personal history of nicotine dependence; Z91.013 Allergy to seafood
CPT/HCPCS: 36415; 71045-TC-FY; 76775-TC; 76856-TC; 80048; 80053; 81003; 81015; 82009; 82962; 83036; 83605; 83735; 83880; 84100; 84703; 85025; 85027; 87040; 87086; 93005; 93010; 93306-TC; 96361; 96365; 96372; 96375; 96376; 99285-25; G0378; J0131; J2794; J7030

== ENCOUNTER 2017-11-29 22:55 | Emergency (ER) | payer OTHER ==
[2017-11-29 23:35] VITALS: BMI 37.8
--- NOTE | 2017-11-29 23:39 | PDOC ---
History of Present Illness - General Chief Complaint: Lightheaded Stated Complaint: DIZZINESS/WEAKNESS Time Seen by Provider: 11/29/17 23:37 - History of Present Illness Initial Comments: 11/29/17 23:46 27 yo female with PMH IDDM, recurrent pancreatitis, frequent UTIs, Bipolar, anxiety, possible CHF history, presented to the ED after symptoms of facial numbness, L arm numbness and tingling that started approx 1 hr prior to arrival while sitting on the cough. The patient reports that she has never had these symptoms before and reports that symptoms have not resolved since onset. She also complains of some abdominal pain. Past History - Past Medical History Allergies/Adverse Reactions: Allergies Allergy/AdvReac Type Severity Reaction Status Date / Time mushroom Allergy Verified 11/29/17 23:32 SEAFOOD Allergy Severe ANAPHYLAXIS Uncoded 10/30/17 16:30 Home Medications: Ambulatory Orders Atorvastatin Ca [Lipitor] 10 mg PO HS #30 tablet 02/17/17 Quetiapine Fumarate [Seroquel] 100 tab PO HS 02/17/17 Clonazepam 1 mg PO BID 10/31/17 Divalproex *ER* [Depakote *ER* -] 500 mg PO BID 10/31/17 Pnv No.95/Ferrous Fum/Folic AC [ Vitamin Tablet] 1 each PO DAILY Risperidone [Risperdal] 2 mg PO BID 10/31/17 Cefuroxime Axetil [Ceftin -] 250 mg PO BID #8 tablet 11/01/17 Divalproex [Depakote -] 500 mg PO BID tablet.ec 11/01/17 Insulin Glargine,Hum.rec.anlog [Lantus Solostar PEN (NF)] 25 units SQ BID #15 pen 11/01/17 Lactobacillus Acidophilus [Bacid -] 1 tab PO DAILY #5 tab 11/01/17 Anemia: No Asthma: Yes Cardiac Disorders: Yes (RAPID HEARTBEAT HX) COPD: No CHF: Yes Diabetes: (Yes; IDDM) GI Disorders: Yes (PANCREATITIS, DIVERTICULOSIS) Disorders: (YES; FREQUENT UTI'S) Liver Disease: No Psychiatric Problems: Yes (anxiety, bipolar) Seizures: Yes Thyroid Disease: (Yes; HYPOTHYROIDISM, HYPOTENSION) - Surgical History Abdominal Surgery: No Appendectomy: No Cardiac Surgery: No Cholecystectomy: No Lung Surgery: No Neurologic Surgery: No Orthopedic Surgery: No - Family Disease History Family Disease History: Heart Disease: Grandparents - Reproductive History (#): 1 Para: 0 Cervical CA: No Dysfunctional Uterine Bleeding: No Ectopic : No Endometrial CA: No Polycystic Ovaries: No Therapeutic (s) & number: No Tubal Ligation: No Spontaneous : 1 - Immunization History Immunization Up to Date: Yes - Suicide/Smoking/Psychosocial Hx Smoking Status: Yes Smoking History: Unknown if ever smoked Have you smoked in the past 12 months: No Number of Cigarettes Smoked Daily: 0 If you are a former smoker, when did you quit?: 2011 Information on smoking cessation initiated: No 'Breaking Loose' booklet given: 03/11/12 Hx Alcohol Use: No Drug/Substance Use Hx: No Substance Use Type: None Hx Substance Use Treatment: No *Physical Exam - Vital Signs Last Vital Signs Temp Pulse Resp BP Pulse Ox 98.3 F 75 18 118/65 98 11/29/17 23:33 11/29/17 23:33 11/29/17 23:33 11/29/17 23:33 11/29/17 23:33 - Physical Exam Comments: 11/29/17 23:53 unremarkable fat pad behind neck. ED Treatment Course - LABORATORY CBC & Chemistry Diagram: 11/30/17 01:08 11/30/17 01:08 Medical Decision Making - Medical Decision Making 11/30/17 02:10 glucose: 444 8 units insulin given. 11/30/17 03:20 Paitent reassessed. stable. feels improved. 11/30/17 04:04 repeat glucose at 433 10 units iv insulin, 20mg K, 1L NS will recheck glucose 11/30/17 05:53 repeat glucose at 380 Patient stable for discharge. Given follow up instructions and strict return precautions. Patient expressed understanding and agreed to plan. *DC/Admit/Observation/Transfer Diagnosis at time of Disposition: Hyperglycemia - Discharge Dispostion Disposition: HOME Condition at time of disposition: Stable Decision to Admit order: No - Referrals Referrals: Trey Richardson MD [Primary Care Provider] - - Patient Instructions Printed Discharge Instructions: Type 2 Diabetes Additional Instructions: You were seen in the ED for complaints of tingling and numbness. In the ED you were evaluated with labwork. Your results were significant for elevated blood sugar. You responded well to fluids and insulin treatment. There does not appear to be an acute need for immediate hospitalization. You are advised to follow up with your primary care physician within 1 week. Please take your diabetes medications as directed. Return to the ED immediately if you experience increased thirst, excessive urination, lightheadedness, headache, shortness of breath or nausea. - Post Discharge Activity
[2017-11-29] MEDS ORDERED: SODIUM CHLORIDE 1,000 ML IV SCH (23:45)
[2017-11-29] MEDS ORDERED: ACETAMINOPHEN 1000 MG/100 ML VIAL (NON FORMULARY) IVPB ONE (23:48)
--- NOTE | 2017-11-30 01:16 | PDOC ---
Attending Attestation - Resident Resident Name: Amina Darden - ED Attending Attestation I have performed the following: I have examined & evaluated the patient, The case was reviewed & discussed with the resident, I agree w/resident's findings & plan, Exceptions are as noted - HPI HPI: 11/30/17 01:24 27y F hx of IDDM, pancreatitis, bipolar d/o, presents with facial numbness/ tingling and L arm tingling in the forearm onset approx 1hr. Pt also notes some headache, cp, sob, n/v. denies any fever/chills, dysuria, diarrhea. pt also endorses some lower abdominal discomfort. on exam pt in n odistress moving all 4 extremities spontaneously and symmetrically sensation intact throughout abd soft nontender card rrr, no mrg pulm cta b/l ddx: hyperglycemia, anxiety, metabolic derangement srini lck labs, ua, hcg, will hydrate will reassess - Physicial Exam PE: 12/01/17 20:21 see above - Medical Decision Making pt signed out to evening team to follow and dispo
[2017-11-30] MEDS ORDERED: ACETAMINOPHEN INJECTION 100 ML IVPB ONE (01:27)
[2017-11-30 01:37] LABS: BASO % 0.9 % (0-2.0); EOS % 0.9 % (0-4.5); HEMATOCRIT 39.2 % (32.4-45.2); HEMOGLOBIN 13.4 GM/dL (10.7-15.3); LYMPH % 43.6 % (8-40); MCH 29.8 pg (25.7-33.7); MCHC 34.1 g/dl (32.0-36.0); MEAN CELL VOLUME 87.5 fl (80-96); MONO % 7.7 % (3.8-10.2); NEUT % 46.9 % (42.8-82.8); PLATELET COUNT 204 K/MM3 (134-434); RBC 4.48 M/mm3 (3.60-5.2); RDW 12.7 % (11.6-15.6); WHITE BLOOD COUNT 7.9 K/mm3 (4.0-10.0)
[2017-11-30 01:42] LABS: URINE APPEARANCE CLEAR; URINE BILIRUBIN NEGATIVE (<2.0 mg/dL); URINE COLOR COLORLESS; URINE GLUCOSE (UA) 3+ (NEGATIVE); URINE KETONE TRACE (NEGATIVE); URINE LEUK ESTERASE NEGATIVE (NEGATIVE); URINE NITRITE NEGATIVE (NEGATIVE); URINE PROTEIN NEGATIVE (NEGATIVE); URINE UROBILINOGEN NEGATIVE mg/dL (0.2-1.0)
[2017-11-30 01:43] LABS: HCG,QUALITATIVE URINE Negative
[2017-11-30 01:56] VITALS: BP 116/82; PULSE 72; TEMP 98.4
[2017-11-30 02:05] LABS: ALBUMIN 3.4 g/dl (3.4-5.0); ALK PHOS 100 U/L (45-117); ANION GAP 7 MMOL/L (8-16); BILIRUBIN,TOTAL 0.4 mg/dL (0.2-1.0); BLOOD UREA NITROGEN 15 mg/dL (7-18); CALCIUM 8.7 mg/dL (8.5-10.1); CHLORIDE 99 mmol/L (98-107); CO2 29 mmol/L (21-32); CREATININE 0.7 mg/dL (0.55-1.3); POTASSIUM 4.2 mmol/L (3.5-5.1); SGOT/AST 14 U/L (15-37); SGPT/ALT 15 U/L (13-61); SODIUM 135 mmol/L (136-145); TOT PROT 7.6 g/dl (6.4-8.2)
[2017-11-30 02:06] LABS: GLUCOSE,RANDOM 444 mg/dL (74-106)
[2017-11-30] MEDS ORDERED: METOCLOPRAMIDE HCL INJECTION 10 MG/2 ML VIAL IVPUSH ONE (02:07)
[2017-11-30] MEDS ORDERED: INSULIN REGULAR HUMAN 100 UNITS/ML *VIAL IVPUSH ONE ×3 (02:08→04:02)
[2017-11-30] MEDS ORDERED: INSULIN REGULAR HUMAN 100 UNITS/ML *VIAL ONE ×2 (02:12→04:36)
[2017-11-30] MEDS ORDERED: SODIUM CHLORIDE 1,000 ML IV SCH ×2 (02:15→04:15)
[2017-11-30] MEDS ORDERED: METOCLOPRAMIDE HCL INJECTION 10 MG/2 ML VIAL ONE (02:32)
[2017-11-30] MEDS ORDERED: POTASSIUM CHLORIDE ORAL LIQUID 20 MEQ/15 ML PO ONE (04:18)
[2017-11-30] MEDS ORDERED: POTASSIUM CHLORIDE ORAL LIQUID 20 MEQ/15 ML ONE (04:39)
[2017-11-30] MEDS ORDERED: Insulin (LOG) Aspart 100 UNITS/ML VIAL SQ SCH (07:00)
== END 2017-11-30 06:17 | disposition home or self-care (01) ==
LOC: JER 22:55
PROC: 3E0337Z Introduction of Electrolytic and Water Balance Substance into Peripheral Vein, Percutaneous Approach (ICD-10-PCS; principal; 2017-11-29)
PROC: 3E033VG Introduction of Insulin into Peripheral Vein, Percutaneous Approach (ICD-10-PCS; 2017-11-29)
PROC: 3E033NZ Introduction of Analgesics, Hypnotics, Sedatives into Peripheral Vein, Percutaneous Approach (ICD-10-PCS; 2017-11-29)
PROC: 3E033GC Introduction of Other Therapeutic Substance into Peripheral Vein, Percutaneous Approach (ICD-10-PCS; 2017-11-29)
DX: E10.65 Type 1 diabetes mellitus with hyperglycemia (principal); Z79.4 Long term (current) use of insulin; K86.1 Other chronic pancreatitis; K57.32 Diverticulitis of large intestine without perforation or abscess without bleeding; E03.9 Hypothyroidism, unspecified; I95.9 Hypotension, unspecified; F41.9 Anxiety disorder, unspecified; F31.9 Bipolar disorder, unspecified
CPT/HCPCS: 36415; 80053; 81003; 82962; 83690; 83880; 84443; 84703; 85025; 87086; 96361; 96374; 96375; 96376; 99282-25; J0131; J7030

== ENCOUNTER 2017-12-26 15:34 | Emergency (ER) | payer OTHER ==
[2017-12-26 15:45] VITALS: BP 122/70; PULSE 105; TEMP 99.1; BMI 36.1
--- NOTE | 2017-12-26 15:45 | PDOC ---
Rapid Medical Evaluation Time Seen by Provider: 12/26/17 15:42 Medical Evaluation: Allergies Allergy/AdvReac Type Severity Reaction Status Date / Time mushroom Allergy Verified 11/29/17 23:32 SEAFOOD Allergy Severe ANAPHYLAXIS Uncoded 10/30/17 16:30 12/26/17 15:43 The patient complaints of: dysuria, burning, urgency with intermittent hematuria On brief exam: vss , no abd or back tenderness The patient was ordered for: ua, upreg, ucx The patient will proceed to the ED Discharge Disposition - Diagnosis Urinary complications - Referrals - Patient Instructions - Post Discharge Activity
--- NOTE | 2017-12-26 17:57 | PDOC ---
History of Present Illness - General Chief Complaint: Urinary Problem Stated Complaint: URINARY PROBLEM Time Seen by Provider: 12/26/17 15:42 History Source: Patient Exam Limitations: No Limitations - History of Present Illness Initial Comments: 12/26/17 17:53 27 yr female with c/o on and off urinary urgency and burning with urination for 2-3 weeks. no fever, LMP this week denies vaginal discharge. Pt has been on antibiotics in the past, denies any fever or chills or back pain. Past History - Past Medical History Allergies/Adverse Reactions: Allergies Allergy/AdvReac Type Severity Reaction Status Date / Time mushroom Allergy Verified 12/26/17 15:45 SEAFOOD Allergy Severe ANAPHYLAXIS Uncoded 12/26/17 15:45 Home Medications: Ambulatory Orders Atorvastatin Ca [Lipitor] 10 mg PO HS #30 tablet 02/17/17 Quetiapine Fumarate [Seroquel] 100 tab PO HS 02/17/17 Clonazepam 1 mg PO BID 10/31/17 Divalproex *ER* [Depakote *ER* -] 500 mg PO BID 10/31/17 Pnv No.95/Ferrous Fum/Folic AC [ Vitamin Tablet] 1 each PO DAILY Risperidone [Risperdal] 2 mg PO BID 10/31/17 Divalproex [Depakote -] 500 mg PO BID tablet.ec 11/01/17 Insulin Glargine,Hum.rec.anlog [Lantus Solostar PEN (NF)] 25 units SQ BID #15 pen 11/01/17 Lactobacillus Acidophilus [Bacid -] 1 tab PO DAILY #5 tab 11/01/17 Cephalexin [Keflex] 500 mg PO BID #14 capsule 12/26/17 Phenazopyridine HCl [Pyridium] 200 mg PO TID #6 tablet 12/26/17 Anemia: No Asthma: Yes Cardiac Disorders: Yes (RAPID HEARTBEAT HX) COPD: No CHF: Yes Diabetes: (Yes; IDDM) GI Disorders: Yes (PANCREATITIS, DIVERTICULOSIS) Disorders: (YES; FREQUENT UTI'S) Liver Disease: No Psychiatric Problems: Yes (anxiety, bipolar) Seizures: Yes Thyroid Disease: (Yes; HYPOTHYROIDISM, HYPOTENSION) - Surgical History Abdominal Surgery: No Appendectomy: No Cardiac Surgery: No Cholecystectomy: No Lung Surgery: No Neurologic Surgery: No Orthopedic Surgery: No - Family Disease History Family Disease History: Heart Disease: Grandparents - Reproductive History (#): 1 Para: 0 Cervical CA: No Dysfunctional Uterine Bleeding: No Ectopic : No Endometrial CA: No Polycystic Ovaries: No Therapeutic (s) & number: No Tubal Ligation: No Spontaneous : 1 - Immunization History Immunization Up to Date: Yes - Suicide/Smoking/Psychosocial Hx Smoking Status: Yes Smoking History: Unknown if ever smoked Have you smoked in the past 12 months: No Number of Cigarettes Smoked Daily: 0 If you are a former smoker, when did you quit?: 2011 'Breaking Loose' booklet given: 03/11/12 Hx Alcohol Use: No Drug/Substance Use Hx: No Substance Use Type: None Hx Substance Use Treatment: No Abd/GI Specific PMHX - Complaint Specific PMHX Pancreatitis: Yes Review of Systems - Review of Systems Able to Perform ROS?: Yes Is the patient limited Romanian proficient: No Constitutional: No: Symptoms Reported HEENTM: No: Symptoms Reported Respiratory: No: Symptoms reported Cardiac (ROS): No: Symptoms Reported ABD/GI: No: Symptoms Reported : Yes: Symptoms Reported *Physical Exam - Vital Signs Last Vital Signs Temp Pulse Resp BP Pulse Ox 99.1 F 105 H 18 122/70 98 12/26/17 15:42 12/26/17 15:42 12/26/17 15:42 12/26/17 15:42 12/26/17 15:42 - Physical Exam General Appearance: Yes: Nourished, Appropriately Dressed, Obese HEENT: positive: EOMI, MARISELA, Normal ENT Inspection, TMs Normal, Pharynx Normal Neck: positive: Supple Respiratory/Chest: positive: Lungs Clear, Normal Breath Sounds. negative: Chest Tender Cardiovascular: positive: Regular Rhythm, Regular Rate Gastrointestinal/Abdominal: positive: Normal Bowel Sounds, Soft Musculoskeletal: positive: Normal Inspection Extremity: positive: Normal Capillary Refill, Normal Inspection, Normal Range of Motion Integumentary: positive: Normal Color, Dry, Warm Neurologic: positive: dental surgery doctor II-XII NML intact, Fully Oriented, Alert, Normal Mood/ Affect Medical Decision Making - Medical Decision Making 12/26/17 17:54 cc: urinary urgency and frequency no fever no abd pain will r/o UTI, gc chlamydia, pt is non toxic stable vitals well appearing pyridium, keflex 12/26/17 18:01 *DC/Admit/Observation/Transfer Diagnosis at time of Disposition: Recurrent UTI Urinary tract infection Qualifiers: Urinary tract infection type: urethritis Qualified Code(s): N34.2 - Other urethritis - Discharge Dispostion Disposition: HOME Condition at time of disposition: Good - Prescriptions Prescriptions: Cephalexin [Keflex] 500 mg PO BID #14 capsule Phenazopyridine HCl [Pyridium] 200 mg PO TID #6 tablet - Referrals Referrals: Trey Richardson MD [Primary Care Provider] - - Patient Instructions Additional Instructions: drink pleanty of water always urinate before and after you have sxual activity do not hold in the urine no bubble baths or soaps in the vaginal area follow with your doctor for follow up - Post Discharge Activity
[2017-12-26 18:18] LABS: URINE APPEARANCE CLOUDY; URINE BILIRUBIN NEGATIVE (<2.0 mg/dL); URINE COLOR LTYELLOW; URINE GLUCOSE (UA) 3+ (NEGATIVE); URINE KETONE 1+ (NEGATIVE); URINE LEUK ESTERASE 2+ (NEGATIVE); URINE NITRITE NEGATIVE (NEGATIVE); URINE PROTEIN 2+ (NEGATIVE); URINE UROBILINOGEN NEGATIVE mg/dL (0.2-1.0)
[2017-12-26 18:21] LABS: HCG,QUALITATIVE URINE Negative
[2017-12-26 18:38] LABS: EPI CELLS RARE /HPF (FEW); URINE BACTERIA RARE /hpf (NONE SEEN); URINE MUCUS RARE
== END 2017-12-26 18:04 | disposition home or self-care (01) ==
LOC: JERFT 15:34
DX: N34.2 Other urethritis (principal); Z87.440 Personal history of urinary (tract) infections; E10.9 Type 1 diabetes mellitus without complications; Z79.4 Long term (current) use of insulin; I95.9 Hypotension, unspecified; F41.9 Anxiety disorder, unspecified; F32.9 Major depressive disorder, single episode, unspecified; E03.9 Hypothyroidism, unspecified; Z87.19 Personal history of other diseases of the digestive system
CPT/HCPCS: 36415; 81003; 81015; 84703; 87086; 87491; 87591; 99281-25

== ENCOUNTER 2018-02-17 21:50 | Emergency (ER) | payer OTHER ==
--- NOTE | 2018-02-17 21:52 | PDOC ---
History of Present Illness - General Stated Complaint: SEIZURE Time Seen by Provider: 02/17/18 21:52 - History of Present Illness Initial Comments: 02/17/18 21:52 Ms. Iyer is a 27 yo female w/ pmh of IDDM, pancreatitis, UTIs, bipolar disorder, anxiety who presents for evaluation after seizure-like activity directly before arrival. Patient reports she ran out of her seizure medication ( dilantin 100mg BID) 2 weeks ago and overslept from her neurology appt today. Per friend who is with patient she had back to back seizure activity lasting approximately 6 minutes in total before she regained conciousness. Patient was post-ictal after this occured. Patient now back to baseline and additionally complaining of midline chest pain that started following her seizures. Patient has no other complaints at this time. Past History - Past Medical History Allergies/Adverse Reactions: Allergies Allergy/AdvReac Type Severity Reaction Status Date / Time mushroom Allergy Verified 02/17/18 22:33 No Known Drug Allergies Allergy Verified 02/17/18 22:33 SEAFOOD Allergy Severe ANAPHYLAXIS Uncoded 12/26/17 15:45 Home Medications: Ambulatory Orders Quetiapine Fumarate [Seroquel] 100 tab PO HS 02/17/17 Clonazepam 1 mg PO BID 10/31/17 Divalproex *ER* [Depakote *ER* -] 500 mg PO BID 10/31/17 Pnv No.95/Ferrous Fum/Folic AC [ Vitamin Tablet] 1 each PO DAILY Risperidone [Risperdal] 2 mg PO BID 10/31/17 Albuterol Sulfate Inhaler - [Ventolin Hfa Inhaler -] 2 inh PO Q4H PRN 02/17/18 Insulin Glargine,Hum.rec.anlog [Lantus Solostar PEN (NF)] 100 units SQ DAILY 06/02 Phenytoin Na Extended [Dilantin -] 100 mg PO BID 02/17/18 Anemia: No Asthma: Yes Cardiac Disorders: Yes (RAPID HEARTBEAT HX) COPD: No CHF: Yes Diabetes: (Yes; IDDM) GI Disorders: Yes (PANCREATITIS, DIVERTICULOSIS) Disorders: (YES; FREQUENT UTI'S) Liver Disease: No Psychiatric Problems: Yes (anxiety, bipolar) Seizures: Yes Thyroid Disease: (Yes; HYPOTHYROIDISM, HYPOTENSION) - Surgical History Abdominal Surgery: No Appendectomy: No Cardiac Surgery: No Cholecystectomy: No Lung Surgery: No Neurologic Surgery: No Orthopedic Surgery: No - Family Disease History Family Disease History: Heart Disease: Grandparents - Reproductive History (#): 1 Para: 0 Cervical CA: No Dysfunctional Uterine Bleeding: No Ectopic : No Endometrial CA: No Polycystic Ovaries: No Therapeutic (s) & number: No Tubal Ligation: No Spontaneous : 1 - Immunization History Immunization Up to Date: Yes - Suicide/Smoking/Psychosocial Hx Smoking Status: Yes Smoking History: Unknown if ever smoked Have you smoked in the past 12 months: No Number of Cigarettes Smoked Daily: 0 If you are a former smoker, when did you quit?: 2011 'Breaking Loose' booklet given: 03/11/12 Hx Alcohol Use: No Drug/Substance Use Hx: No Substance Use Type: None Hx Substance Use Treatment: No Review of Systems - Review of Systems Comments:: 02/17/18 22:05 GENERAL/CONSTITUTIONAL: +Generalized seizure-like activity w/ weakness after. No fever or chills. HEAD, EYES, EARS, NOSE AND THROAT: No change in vision. No ear pain or discharge. No sore throat. CARDIOVASCULAR: +Chest pain (midline). No shortness of breath RESPIRATORY: No cough, wheezing, or hemoptysis. GASTROINTESTINAL: No nausea, vomiting, diarrhea or constipation. GENITOURINARY: No dysuria, frequency, or change in urination. MUSCULOSKELETAL: No joint or muscle swelling or pain. No neck or back pain. SKIN: No rash NEUROLOGIC: No headache, vertigo, or change in strength/sensation. ENDOCRINE: No increased thirst. No abnormal weight change HEMATOLOGIC/LYMPHATIC: No anemia, easy bleeding, or history of blood clots. ALLERGIC/IMMUNOLOGIC: No hives or skin allergy. *Physical Exam - Physical Exam Comments: 02/17/18 22:06 GENERAL: Awake, alert, and fully oriented, in no acute distress HEAD: No signs of trauma, normocephalic, atraumatic EYES: PERRLA, EOMI, sclera anicteric, conjunctiva clear ENT: Auricles normal inspection, hearing grossly normal, nares patent, oropharynx clear without exudates. Moist mucosa NECK: Normal ROM, supple, no lymphadenopathy, JVD, or masses LUNGS: No distress, speaks full sentences, clear to auscultation bilaterally HEART: Regular rate and rhythm, normal S1 and S2, no murmurs, rubs or gallops, peripheral pulses normal and equal bilaterally. ABDOMEN: Soft, nontender, normoactive bowel sounds. No guarding, no rebound. No masses EXTREMITIES: Normal inspection, Normal range of motion, no edema. No clubbing or cyanosis. NEUROLOGICAL: Cranial nerves II through XII grossly intact. Normal speech, normal gait, no focal sensorimotor deficits SKIN: Warm, Dry, normal turgor, no rashes or lesions noted. ED Treatment Course - LABORATORY CBC & Chemistry Diagram: 02/17/18 22:40 02/17/18 22:40 Medical Decision Making - Medical Decision Making 02/17/18 23:39 Ms. Iyer is a 27 yo female w/ pmh as described who presents for evaluation s/p suspected 2 seizures. Patient reports she has not taken medications in 2 weeks. Is unsure of anti-seizure medications however believes one is dilantin 100mg BID. Labs sent for evaluation of cause of seizure including infectious / electrolyte abnormalities and depakote level. Depakote level returned at 0.4. 400mg oral dose given with plan for 1gm loading dose ( 400mg, 300mg 2 hours later, followed by 300mg 2 hours after this). Chart checking of previous medications unclear what patient's current seizure prophylaxis regimen is. Neurology consulted for further information. 02/17/18 23:47 Patient glucose noted at 566. Insulin 10 units and 1L NS ordered for treatment. CXR negative. Patient signed out to Dr. Concepcion for further evaluation. *DC/Admit/Observation/Transfer Diagnosis at time of Disposition: Seizure - Referrals Referrals: Trey Richardson MD [Primary Care Provider] - - Patient Instructions - Post Discharge Activity
[2018-02-17 22:00] VITALS: BP 116/78; PULSE 70; TEMP 98.4; BMI 37.8
--- NOTE | 2018-02-17 22:14 | PDOC ---
Attending Attestation - HPI HPI: 02/17/18 23:08 27 yo F pmhx of seizure disorder, IDDM, pancreatitis, bipolar disorder, presents s/p 2 seizures at 9pm today. As per boy friend at bedside, patient was watching movies prior to seizure. Patient started having 1 episode of shaking lasting 3 minutes, stopped, and subsequently had another episode of shaking after. She states she was supposed to visit her neurologist Dr. Gutiérrez today, but missed her appointment because she overslept. Patient states she has not been compliant with her seizure medications. <Jeanna Alexandra - Last Filed: 02/17/18 23:08> - Resident Resident Name: Abimael Cummins - ED Attending Attestation I have performed the following: I have examined & evaluated the patient, The case was reviewed & discussed with the resident, I agree w/resident's findings & plan, Exceptions are as noted - Physicial Exam PE: 02/17/18 22:57 GENERAL: The patient is in no acute distress, resting in bed comfortably, Awake and alert HEAD: Normal with no signs of trauma. EYES: PERRLA, EOMI, sclera anicteric, conjunctiva clear. ENT: Ears normal, nares patent, oropharynx clear without exudates. Moist mucous membranes. NECK: Normal range of motion, supple without lymphadenopathy, JVD, or masses. LUNGS: Breath sounds equal, clear to auscultation bilaterally. No wheezes, and no crackles. HEART:Regular rate and rhythm, normal S1 and S2 without murmur, rub or gallop. ABDOMEN: Soft, nontender, normoactive bowel sounds. EXTREMITIES: Normal range of motion, no edema. NEUROLOGICAL: Cranial nerves II through XII grossly intact. Normal speech. No focal neurological deficits. MUSCULOSKELETAL: Back non-tender to palpation SKIN: Warm, Dry, normal turgor, no rashes or lesions noted. - Medical Decision Making 02/17/18 23:05 27 yo F h/o DM, seizure d/o She presents to the ER s/p 2 witnessed seizure while seated in bed She has been non compliant with her medications for the past 2 weeks Pt states she is on dilantin, meds were last verified in October and at that time she was on depakote Pt thinks she may also have been on Keppra She missed an appointment with her neurologist today Will do: Labs No CT indicated Unclear what medications she should be taking?? Will contact her pharmacy vs. Neurologist for clarification 02/18/18 00:08 Laboratory Tests 02/17/18 02/17/18 02/17/18 22:20 22:40 22:40 WBC 7.4 Hgb 13.7 Hct 38.8 Plt Count 165 BUN 8 Creatinine 0.7 Random Glucose 566 H* Creatine Kinase 40 Troponin I < 0.02 Ur Leukocyte Esterase 3+ H Urine WBC (Auto) 48 Urine RBC (Auto) 14 Ur Epithelial Cells Rare Phenytoin 02/17/18 22:40 WBC Hgb Hct Plt Count BUN Creatinine Random Glucose Creatine Kinase Troponin I Ur Leukocyte Esterase Urine WBC (Auto) Urine RBC (Auto) Ur Epithelial Cells Phenytoin 0.4 L Regular Insulin SQ given Pt drinking Fluids (difficult IV placement, IV has infiltrated) 02/18/18 00:[address] Gutiérrez He recommends Depakote 1000mg po followed by 500mg BID He also recommends Dilantin 1000mg po followed by 200 q12 Will re check fingerstick Pt has been hydrating FS over range Pt unwilling to stay in the hospital for additional evaluation and treatment She understands the risks of leaving the ER with out a complete evaluation/ treatment plan She is leaving the ER AMA <Jing Licona - Last Filed: 02/18/18 22:49> *DC/Admit/Observation/Transfer <Jeanna Alexandra - Last Filed: 02/17/18 23:08> - Discharge Dispostion Decision to Admit order: No <Jing Licona - Last Filed: 02/18/18 22:49> Diagnosis at time of Disposition: Seizure - Discharge Dispostion Disposition: AGAINST MEDICAL ADVICE Condition at time of disposition: Stable - Prescriptions Prescriptions: Divalproex [Depakote -] 500 mg PO BID #30 tablet.ec Phenytoin Na Extended [Dilantin -] 100 mg PO BID #30 capsule - Referrals Referrals: Trey Richardson MD [Primary Care Provider] - Segundo Gutiérrez MD [Staff Physician] - - Patient Instructions Printed Discharge Instructions: DI for Seizure Disorder -- Adult Additional Instructions: PLEASE CALL DR GUTIÉRREZ IN THE MORNING FOR A FOLLOW UP APPOINTMENT PLEASE DO NOT MISS YOUR FOLLOW UP APPOINTMENT WITH DR GUTIÉRREZ THIS IS VERY IMPORTANT PLEASE GET YOUR PRESCRIPTIONS FROM THE PHARMACY PLEASE TAKE YOUR PRESCRIPTIONS PRESCRIBED PLEASE KEEP A RECORD OF THE MEDICATIONS YOU ARE SUPPOSED TO BE TAKING - Post Discharge Activity Attestations - Attestations Documentation prepared by Jeanna Alexandra, acting as medical education specialist for Jing Licona MD. <Jeanna Alexandra - Last Filed: 02/17/18 23:08>
[2018-02-17 22:40] LABS: URINE APPEARANCE CLEAR; URINE BILIRUBIN NEGATIVE (<2.0 mg/dL); URINE COLOR STRAW; URINE GLUCOSE (UA) 3+ (NEGATIVE); URINE KETONE TRACE (NEGATIVE); URINE LEUK ESTERASE 3+ (NEGATIVE); URINE NITRITE NEGATIVE (NEGATIVE); URINE PROTEIN NEGATIVE (NEGATIVE); URINE UROBILINOGEN NEGATIVE mg/dL (0.2-1.0)
[2018-02-17 22:44] LABS: EPI CELLS RARE /HPF (FEW); URINE BACTERIA RARE /hpf (NONE SEEN)
[2018-02-17 22:55] LABS: BASO % 0.8 % (0-2.0); EOS % 0.7 % (0-4.5); HEMATOCRIT 38.8 % (32.4-45.2); HEMOGLOBIN 13.7 GM/dL (10.7-15.3); LYMPH % 40.1 % (8-40); MCH 30.5 pg (25.7-33.7); MCHC 35.3 g/dl (32.0-36.0); MEAN CELL VOLUME 86.3 fl (80-96); MEAN PLT VOLUME 8.8 fl (7.5-11.1); MONO % 6.2 % (3.8-10.2); NEUT % 52.2 % (42.8-82.8); PLATELET COUNT 165 K/MM3 (134-434); RBC 4.49 M/mm3 (3.60-5.2); WHITE BLOOD COUNT 7.4 K/mm3 (4.0-10.0)
[2018-02-17] MEDS ORDERED: PHENYTOIN NA EXTENDED 100 MG CAPSULE (FP) PO ONE (23:38)
[2018-02-17 23:40] LABS: ALBUMIN 3.1 g/dl (3.4-5.0); ALK PHOS 94 U/L (45-117); ANION GAP 10 MMOL/L (8-16); BILIRUBIN,TOTAL 0.2 mg/dL (0.2-1); BLOOD UREA NITROGEN 8 mg/dL (7-18); CALCIUM 8.9 mg/dL (8.5-10.1); CHLORIDE 100 mmol/L (98-107); CO2 25 mmol/L (21-32); CREATININE 0.7 mg/dL (0.55-1.3); SGOT/AST 10 U/L (15-37); SGPT/ALT 12 U/L (13-61); SODIUM 134 mmol/L (136-145)
[2018-02-17 23:43] LABS: GLUCOSE,RANDOM 566 mg/dL (74-106)
[2018-02-17] MEDS ORDERED: INSULIN REGULAR HUMAN 100 UNITS/ML *VIAL SQ STA (23:45)
[2018-02-17] MEDS ORDERED: SODIUM CHLORIDE 1,000 ML IV STA (23:46)
[2018-02-17] MEDS ORDERED: PHENYTOIN NA EXTENDED 100 MG CAPSULE (FP) ONE (23:46)
[2018-02-17] MEDS ORDERED: INSULIN REGULAR HUMAN 100 UNITS/ML *VIAL ONE (23:53)
[2018-02-18] MEDS ORDERED: DIVALPROEX SODIUM 500 MG TABLET E.C. PO ONE (00:16)
[2018-02-18] MEDS ORDERED: DIVALPROEX SODIUM 500 MG TABLET E.C. ONE (00:40)
== END 2018-02-18 02:22 | disposition left against medical advice (07) ==
LOC: JER 21:50
PROC: 3E013VG Introduction of Insulin into Subcutaneous Tissue, Percutaneous Approach (ICD-10-PCS; principal; 2018-02-17)
PROC: 3E0337Z Introduction of Electrolytic and Water Balance Substance into Peripheral Vein, Percutaneous Approach (ICD-10-PCS; 2018-02-17)
DX: R56.9 Unspecified convulsions (principal); Z87.891 Personal history of nicotine dependence; E03.9 Hypothyroidism, unspecified; E11.9 Type 2 diabetes mellitus without complications; F31.9 Bipolar disorder, unspecified; I95.9 Hypotension, unspecified
CPT/HCPCS: 36415; 71045-TC-FY; 80053; 80185; 81003; 81015; 82550; 82962; 84484; 84703; 85025; 87086; 96360; 96372; 99283-25; J7030

== ENCOUNTER → 2018-03-24 | Emergency (ER) | payer OTHER ==
--- NOTE | 2018-03-24 14:26 | PDOC ---
Rapid Medical Evaluation Time Seen by Provider: 03/24/18 14:24 Medical Evaluation: Allergies Allergy/AdvReac Type Severity Reaction Status Date / Time mushroom Allergy Verified 02/17/18 22:33 No Known Drug Allergies Allergy Verified 02/17/18 22:33 SEAFOOD Allergy Severe ANAPHYLAXIS Uncoded 12/26/17 15:45 03/24/18 14:24 I have done a brief in-person assessment of this patient. The patient presents with a chief complaint of intermittent chest pain since this am. States chest pain occurred with shortness of breath while walking to the store today. States pain is less than before but still present Pertinent physical exam findings NAD even and unlabored breathin no pedal edema I have ordered the following: ekg, labs The patient will proceed to the Ed for further evaluation. Dx: chest pain
[2018-03-24 14:30] VITALS: BP 111/46; PULSE 82; TEMP 97.6; BMI 36.5
[2018-03-24 15:11] LABS: BASO % 0.5 % (0-2.0); EOS % 0.5 % (0-4.5); HEMATOCRIT 43.5 % (32.4-45.2); HEMOGLOBIN 14.2 GM/dL (10.7-15.3); LYMPH % 28.1 % (8-40); MCH 28.7 pg (25.7-33.7); MCHC 32.6 g/dl (32.0-36.0); MEAN CELL VOLUME 87.9 fl (80-96); MEAN PLT VOLUME 8.3 fl (7.5-11.1); MONO % 6.6 % (3.8-10.2); NEUT % 64.3 % (42.8-82.8); PLATELET COUNT 184 K/MM3 (134-434); RBC 4.94 M/mm3 (3.60-5.2); WHITE BLOOD COUNT 6.8 K/mm3 (4.0-10.0)
--- NOTE | 2018-03-24 15:16 | PDOC ---
History of Present Illness - General Chief Complaint: Chest Pain Stated Complaint: CHEST PAIN Time Seen by Provider: 03/24/18 14:24 History Source: Patient Past History - Past Medical History Allergies/Adverse Reactions: Allergies Allergy/AdvReac Type Severity Reaction Status Date / Time mushroom Allergy Verified 02/17/18 22:33 No Known Drug Allergies Allergy Verified 02/17/18 22:33 SEAFOOD Allergy Severe ANAPHYLAXIS Uncoded 12/26/17 15:45 Home Medications: Ambulatory Orders Quetiapine Fumarate [Seroquel] 100 tab PO HS 02/17/17 Clonazepam 1 mg PO BID 10/31/17 Divalproex *ER* [Depakote *ER* -] 500 mg PO BID 10/31/17 Pnv No.95/Ferrous Fum/Folic AC [ Vitamin Tablet] 1 each PO DAILY Risperidone [Risperdal] 2 mg PO BID 10/31/17 Albuterol Sulfate Inhaler - [Ventolin Hfa Inhaler -] 2 inh PO Q4H PRN 02/17/18 Insulin Glargine,Hum.rec.anlog [Lantus Solostar PEN (NF)] 100 units SQ DAILY 06/02 Phenytoin Na Extended [Dilantin -] 100 mg PO BID 02/17/18 Divalproex [Depakote -] 500 mg PO BID #30 tablet.ec 02/18/18 Phenytoin Na Extended [Dilantin -] 100 mg PO BID #30 capsule 02/18/18 Anemia: No Asthma: Yes Cancer: No Cardiac Disorders: Yes (RAPID HEARTBEAT HX) CVA: No COPD: No CHF: Yes Dementia: No Diabetes: (Yes; IDDM) GI Disorders: Yes (PANCREATITIS, DIVERTICULOSIS) Disorders: (YES; FREQUENT UTI'S) HTN: (LOW BP) Hypercholesterolemia: No Liver Disease: No Psychiatric Problems: Yes (anxiety, bipolar) Seizures: Yes Thyroid Disease: (Yes; HYPOTHYROIDISM, HYPOTENSION) - Surgical History Abdominal Surgery: No Appendectomy: No Cardiac Surgery: No Cholecystectomy: No Lung Surgery: No Neurologic Surgery: No Orthopedic Surgery: No - Family Disease History Family Disease History: Heart Disease: Grandparents - Reproductive History (#): 1 Para: 0 Cervical CA: No Dysfunctional Uterine Bleeding: No Ectopic : No Endometrial CA: No Polycystic Ovaries: No Therapeutic (s) & number: No Tubal Ligation: No Spontaneous : 1 - Immunization History Immunization Up to Date: Yes - Suicide/Smoking/Psychosocial Hx Smoking Status: Yes Smoking History: Current some day smoker Have you smoked in the past 12 months: No Number of Cigarettes Smoked Daily: 2 If you are a former smoker, when did you quit?: 2011 Information on smoking cessation initiated: No 'Breaking Loose' booklet given: 03/11/12 Hx Alcohol Use: No Drug/Substance Use Hx: No Substance Use Type: None Hx Substance Use Treatment: No *Physical Exam - Vital Signs Last Vital Signs Temp Pulse Resp BP Pulse Ox 97.6 F 82 20 111/46 L 97 03/24/18 14:25 03/24/18 14:25 03/24/18 14:25 03/24/18 14:25 03/24/18 14:25 Moderate Sedation - Procedure Monitoring Vital Signs: Procedure Monitoring Vital Signs Temperature 97.6 F 03/24/18 14:25 Pulse Rate 82 03/24/18 14:25 Respiratory Rate 20 03/24/18 14:25 Blood Pressure 111/46 L 03/24/18 14:25 O2 Sat by Pulse Oximetry (%) 97 03/24/18 14:25 ED Treatment Course - LABORATORY CBC & Chemistry Diagram: 03/24/18 14:37 03/24/18 14:37 - ADDITIONAL ORDERS Additional order review: 03/24/18 14:37 RBC 4.94 MCV 87.9 MCHC 32.6 RDW 13.0 MPV 8.3 Neutrophils % 64.3 D Lymphocytes % 28.1 D Monocytes % 6.6 Eosinophils % 0.5 Basophils % 0.5 Medical Decision Making - Medical Decision Making 03/24/18 15:51 Patient eloped prior to evaluation by [facility] drawn in triage significant for glucose 495. Left message with patient *DC/Admit/Observation/Transfer Diagnosis at time of Disposition: Patient left before evaluation by physician - Discharge Dispostion Disposition: ELOPED Condition at time of disposition: Fair - Referrals Referrals: Trey Richardson MD [Primary Care Provider] - - Patient Instructions - Post Discharge Activity
[2018-03-24 15:24] LABS: INR 0.9 (0.83-1.09); PROTHROMBIN TIME (PATIENT) 10.6 SEC (9.7-13.0)
[2018-03-24 15:28] LABS: ACTIVATED PTT 29.9 SECONDS (25.2-36.5)
[2018-03-24 15:34] LABS: ALBUMIN 3.4 g/dl (3.4-5.0); ALK PHOS 98 U/L (45-117); ANION GAP 9 MMOL/L (8-16); BILIRUBIN,TOTAL 0.4 mg/dL (0.2-1); BLOOD UREA NITROGEN 6 mg/dL (7-18); CALCIUM 8.8 mg/dL (8.5-10.1); CHLORIDE 100 mmol/L (98-107); CO2 25 mmol/L (21-32); CREATININE 0.8 mg/dL (0.55-1.3); POTASSIUM 4.4 mmol/L (3.5-5.1); SGOT/AST 9 U/L (15-37); SGPT/ALT 17 U/L (13-61); SODIUM 133 mmol/L (136-145); TOT PROT 7.4 g/dl (6.4-8.2)
[2018-03-24 15:36] LABS: GLUCOSE,RANDOM 495 mg/dL (74-106)
--- NOTE | 2018-03-25 10:03 | EKG ---
Test Reason : Blood Pressure : / mmHG Vent. Rate : 071 BPM Atrial Rate : 071 BPM P-R Int : 164 ms QRS Dur : 084 ms QT Int : 412 ms P-R-T Axes : 051 053 051 degrees QTc Int : 447 ms NORMAL SINUS RHYTHM NORMAL ECG WHEN COMPARED WITH ECG OF 30-OCT-2017 22:22, T WAVE AMPLITUDE HAS DECREASED IN ANTERIOR LEADS Confirmed by Umer Antonio MD ([id number]) on 03/25/2018 10:03:22 AM Referred By: Confirmed By:Umer Antonio MD
== END | disposition left against medical advice (07) ==
LOC: JER 14:16
DX: R07.9 Chest pain, unspecified (principal)
CPT/HCPCS: 36415; 80053; 82550; 84484; 85025; 85610; 85730; 93005; 93010; 99281-25

== ENCOUNTER 2018-04-06 15:40 | Emergency (ER) | payer OTHER ==
[2018-04-06 15:48] VITALS: BP 118/50; PULSE 98; TEMP 98; BMI 34.4
[2018-04-06 19:01] LABS: BASO % 0.9 % (0-2.0); EOS % 0.9 % (0-4.5); HEMATOCRIT 40.1 % (32.4-45.2); HEMOGLOBIN 13.9 GM/dL (10.7-15.3); LYMPH % 39.5 % (8-40); MCH 30.4 pg (25.7-33.7); MCHC 34.7 g/dl (32.0-36.0); MEAN CELL VOLUME 87.6 fl (80-96); MEAN PLT VOLUME 8.4 fl (7.5-11.1); MONO % 5.2 % (3.8-10.2); NEUT % 53.5 % (42.8-82.8); PLATELET COUNT 193 K/MM3 (134-434); RBC 4.58 M/mm3 (3.60-5.2); RDW 13.3 % (11.6-15.6)
[2018-04-06 19:05] LABS: URINE APPEARANCE CLEAR; URINE BILIRUBIN NEGATIVE (<2.0 mg/dL); URINE COLOR LTYELLOW; URINE GLUCOSE (UA) 3+ (NEGATIVE); URINE KETONE TRACE (NEGATIVE); URINE LEUK ESTERASE 2+ (NEGATIVE); URINE NITRITE NEGATIVE (NEGATIVE); URINE PROTEIN NEGATIVE (NEGATIVE); URINE UROBILINOGEN NEGATIVE mg/dL (0.2-1.0)
[2018-04-06 19:17] LABS: EPI CELLS RARE /HPF (FEW)
[2018-04-06 19:19] LABS: INR 0.97 (0.83-1.09); PROTHROMBIN TIME (PATIENT) 11.4 SEC (9.7-13.0)
[2018-04-06 19:43] LABS: ALBUMIN 3.5 g/dl (3.4-5.0); ALK PHOS 96 U/L (45-117); ANION GAP 11 MMOL/L (8-16); BILIRUBIN,TOTAL 0.4 mg/dL (0.2-1); BLOOD UREA NITROGEN 11 mg/dL (7-18); CALCIUM 9.2 mg/dL (8.5-10.1); CHLORIDE 104 mmol/L (98-107); CO2 23 mmol/L (21-32); CREATININE 0.7 mg/dL (0.55-1.3); GLUCOSE,RANDOM 298 mg/dL (74-106); LIPASE 754 U/L (73-393); MAGNESIUM 1.9 mg/dL (1.8-2.4); PHOSPHOROUS 3.9 mg/dL (2.5-4.9); SGOT/AST 8 U/L (15-37); SGPT/ALT 12 U/L (13-61); SODIUM 138 mmol/L (136-145)
--- NOTE | 2018-04-06 19:43 | PDOC ---
History of Present Illness - General Chief Complaint: Pain Stated Complaint: PAIN Time Seen by Provider: 04/06/18 17:15 History Source: Patient Exam Limitations: No Limitations - History of Present Illness Initial Comments: 04/06/18 19:39 27 yo F w/ a h/o uncontrolled IDDM, HLD, pancreatitis, seizures, CHF comes in c/ o 3 days of epigastric abdominal pain with nausea, which feels like her pancreatitis. No vomiting. Pain does not radiate to the back. no change in appetite, no decrease in urination. Pt says that her FS was in the 300s this am. Also c/o mild burning/pain on urination for the past week with yellowish vaginal discharge and itching, (+)sexually active, does not use protection at all times, no h/o STDs. ALso would like to make sure she is not . LMP 2months ago, does not remember the date, she is usually regular. 04/06/18 19:40 Past History - Past Medical History Allergies/Adverse Reactions: Allergies Allergy/AdvReac Type Severity Reaction Status Date / Time mushroom Allergy Verified 04/06/18 15:48 No Known Drug Allergies Allergy Verified 04/06/18 15:48 SEAFOOD Allergy Severe ANAPHYLAXIS Uncoded 04/06/18 15:48 Home Medications: Ambulatory Orders Quetiapine Fumarate [Seroquel] 100 tab PO HS 02/17/17 Clonazepam 1 mg PO BID 10/31/17 Divalproex *ER* [Depakote *ER* -] 500 mg PO BID 10/31/17 Pnv No.95/Ferrous Fum/Folic AC [ Vitamin Tablet] 1 each PO DAILY Risperidone [Risperdal] 2 mg PO BID 10/31/17 Albuterol Sulfate Inhaler - [Ventolin Hfa Inhaler -] 2 inh PO Q4H PRN 02/17/18 Insulin Glargine,Hum.rec.anlog [Lantus Solostar PEN (NF)] 100 units SQ DAILY 06/02 Phenytoin Na Extended [Dilantin -] 100 mg PO BID #30 capsule 02/18/18 Anemia: No Asthma: Yes Cancer: No Cardiac Disorders: Yes (RAPID HEARTBEAT HX) CVA: No COPD: No CHF: Yes Dementia: No Diabetes: (Yes; IDDM) GI Disorders: Yes (PANCREATITIS, DIVERTICULOSIS) Disorders: (YES; FREQUENT UTI'S) HTN: (LOW BP) Hypercholesterolemia: No Liver Disease: No Psychiatric Problems: Yes (anxiety, bipolar) Seizures: Yes Thyroid Disease: (Yes; HYPOTHYROIDISM, HYPOTENSION) - Surgical History Abdominal Surgery: No Appendectomy: No Cardiac Surgery: No Cholecystectomy: No Lung Surgery: No Neurologic Surgery: No Orthopedic Surgery: No - Family Disease History Family Disease History: Heart Disease: Grandparents - Reproductive History (#): 1 Para: 0 Cervical CA: No Dysfunctional Uterine Bleeding: No Ectopic : No Endometrial CA: No Polycystic Ovaries: No Therapeutic (s) & number: No Tubal Ligation: No Spontaneous : 1 - Immunization History Immunization Up to Date: Yes - Suicide/Smoking/Psychosocial Hx Smoking Status: Yes Smoking History: Current every day smoker Have you smoked in the past 12 months: No Number of Cigarettes Smoked Daily: 1 If you are a former smoker, when did you quit?: 2011 Information on smoking cessation initiated: No 'Breaking Loose' booklet given: 03/11/12 Hx Alcohol Use: No Drug/Substance Use Hx: No Substance Use Type: None Hx Substance Use Treatment: No Review of Systems - Review of Systems Able to Perform ROS?: Yes Constitutional: No: Chills, Fever, Malaise, Night Sweats HEENTM: No: Eye Pain, Recent change in vision, Throat Pain Respiratory: No: Cough, Shortness of Breath Cardiac (ROS): No: Chest Pain, Palpitations, Chest Tightness ABD/GI: Yes: Nausea, Abdominal cramping. No: Diarrhea, Vomiting : No: Dysuria, Hematuria Musculoskeletal: No: Back Pain Integumentary: No: Rash Neurological: No: Headache, Numbness, Dizziness Psychiatric: No: Change in Appetite Endocrine: No: Unexplained Weight Loss *Physical Exam - Vital Signs Last Vital Signs Temp Pulse Resp BP Pulse Ox 98 F 98 H 18 118/50 L 96 04/06/18 15:45 04/06/18 15:45 04/06/18 15:45 04/06/18 15:45 04/06/18 15:45 - Physical Exam General Appearance: Yes: Nourished. No: Apparent Distress HEENT: positive: MARISELA, Normal ENT Inspection, Normal Voice. negative: Pale Conjunctivae, Scleral Icterus (R), Scleral Icterus (L) Neck: positive: Supple. negative: Decreased range of motion, Tender midline Respiratory/Chest: positive: Lungs Clear, Normal Breath Sounds. negative: Respiratory Distress, Accessory Muscle Use Cardiovascular: positive: Regular Rhythm, Regular Rate Female Pelvic Exam: positive: discharge (thin yellowish discharge). negative: CMT, adnexal tenderness, vaginal bleeding Gastrointestinal/Abdominal: positive: Normal Bowel Sounds, Soft, Tenderness ( epigastric, (-)ayala' sign, no rebound tenderness, (-)tenderness at McBurney's point, (-)Psoas sign, (-)Rosving sign). negative: Tender, Decreased BS, Guarding, Rebound Musculoskeletal: positive: Normal Inspection. negative: CVA Tenderness, Decreased Range of Motion Extremity: positive: Normal Capillary Refill, Normal Inspection, Normal Range of Motion. negative: Tender, Pedal Edema Integumentary: positive: Normal Color, Dry. negative: Jaundice, Rash Neurologic: positive: Fully Oriented, Alert, Normal Mood/Affect Moderate Sedation - Procedure Monitoring Vital Signs: Procedure Monitoring Vital Signs Temperature 98 F 04/06/18 15:45 Pulse Rate 98 H 04/06/18 15:45 Respiratory Rate 18 04/06/18 15:45 Blood Pressure 118/50 L 04/06/18 15:45 O2 Sat by Pulse Oximetry (%) 96 04/06/18 15:45 ED Treatment Course - LABORATORY CBC & Chemistry Diagram: 04/06/18 18:30 04/06/18 18:30 - ADDITIONAL ORDERS Additional order review: Laboratory Results 04/06/18 04/06/18 18:30 18:30 PT with INR 11.40 INR 0.97 Urine Color Ltyellow Urine Appearance Clear Urine pH 5.0 D Ur Specific [place] 1.029 Urine Protein Negative Urine Glucose (UA) 3+ H Urine Ketones Trace H Urine Blood 1+ H Urine Nitrite Negative Urine Bilirubin Negative Urine Urobilinogen Negative Ur Leukocyte Esterase 2+ H Urine WBC (Auto) <1 Urine RBC (Auto) <1 Ur Epithelial Cells Rare 04/06/18 18:30 RBC 4.58 MCV 87.6 MCHC 34.7 RDW 13.3 MPV 8.4 Neutrophils % 53.5 Lymphocytes % 39.5 D Monocytes % 5.2 Eosinophils % 0.9 Basophils % 0.9 Medical Decision Making - Medical Decision Making 04/06/18 19:51 27 yo F w/DM, HLD, pancreatitis, seizures, CHF c/o epigastric abdominal pain similar to her pancreatitis in the past. Also c/o vaginal discharge. I recommended empiric treatment for STDs, she declined, prefers to get tested and wait for results. WIll line and lab, check lipase, UA and reassess Change of shift, care of patient signed over to JAZ Salvador who will follow up labs, reassess and decide on dispo plan. 04/06/18 19:53 *DC/Admit/Observation/Transfer Diagnosis at time of Disposition: Vaginal discharge Abdominal pain Qualifiers: Abdominal location: unspecified location Qualified Code(s): R10.9 - Unspecified abdominal pain - Referrals Referrals: Del Daigle [Primary Care Provider] - - Patient Instructions - Post Discharge Activity
--- NOTE | 2018-04-06 20:49 | PDOC ---
*Physical Exam - Vital Signs Last Vital Signs Temp Pulse Resp BP Pulse Ox 98 F 98 H 18 118/50 L 96 04/06/18 15:45 04/06/18 15:45 04/06/18 15:45 04/06/18 15:45 04/06/18 15:45 ED Treatment Course - LABORATORY CBC & Chemistry Diagram: 04/06/18 18:30 04/06/18 18:30 - ADDITIONAL ORDERS Additional order review: Laboratory Results 04/06/18 04/06/18 04/06/18 18:30 18:30 18:30 PT with INR 11.40 INR 0.97 Sodium 138 Potassium 4.0 Chloride 104 Carbon Dioxide 23 Anion Gap 11 BUN 11 Creatinine 0.7 Creat Clearance w eGFR > 60 Random Glucose 298 H Calcium 9.2 Phosphorus 3.9 Magnesium 1.9 Total Bilirubin 0.4 AST 8 L ALT 12 L Alkaline Phosphatase 96 Total Protein 8.0 Albumin 3.5 Lipase 754 H Beta HCG, Quant < 1.0 Urine Color Ltyellow Urine Appearance Clear Urine pH 5.0 D Ur Specific [place] 1.029 Urine Protein Negative Urine Glucose (UA) 3+ H Urine Ketones Trace H Urine Blood 1+ H Urine Nitrite Negative Urine Bilirubin Negative Urine Urobilinogen Negative Ur Leukocyte Esterase 2+ H Urine WBC (Auto) <1 Urine RBC (Auto) <1 Ur Epithelial Cells Rare 04/06/18 18:30 RBC 4.58 MCV 87.6 MCHC 34.7 RDW 13.3 MPV 8.4 Neutrophils % 53.5 Lymphocytes % 39.5 D Monocytes % 5.2 Eosinophils % 0.9 Basophils % 0.9 Medical Decision Making - Medical Decision Making 04/06/18 20:45 Endorsed to me to follow labs and disposition. Noted to have a lipase of 753 with elevated glucose. Patient was offered admission to scattered observation. Patient wants to sign out AGAINST MEDICAL ADVICE. At this time refusing to have ultrasound done here. She is planning to go to [facility] will give her copies of her labs *DC/Admit/Observation/Transfer Diagnosis at time of Disposition: Vaginal discharge Abdominal pain Qualifiers: Abdominal location: unspecified location Qualified Code(s): R10.9 - Unspecified abdominal pain Diabetes mellitus, insulin dependent (IDDM), uncontrolled Qualifiers: Glycemic state: with hyperglycemia Qualified Code(s): E10.65 - Type 1 diabetes mellitus with hyperglycemia - Discharge Dispostion Disposition: AGAINST MEDICAL ADVICE Condition at time of disposition: Stable - Referrals Referrals: Del Daigle [Primary Care Provider] - - Patient Instructions - Post Discharge Activity
== END 2018-04-06 20:58 | disposition left against medical advice (07) ==
LOC: JER 15:40
DX: N89.8 Other specified noninflammatory disorders of vagina (principal); E10.65 Type 1 diabetes mellitus with hyperglycemia; Z79.4 Long term (current) use of insulin; R10.9 Unspecified abdominal pain; E78.5 Hyperlipidemia, unspecified; K86.1 Other chronic pancreatitis; I50.9 Heart failure, unspecified; I95.9 Hypotension, unspecified; F41.9 Anxiety disorder, unspecified; F31.9 Bipolar disorder, unspecified
CPT/HCPCS: 36415; 80053; 81003; 81015; 83690; 83735; 84100; 84702; 85025; 85610; 86850; 86900; 86901; 87086; 87491; 87591; 99283-25

== ENCOUNTER 2018-04-08 21:04 | Emergency (ER) | payer OTHER ==
[2018-04-08 22:11] VITALS: BP 113/63; PULSE 76; TEMP 98.1; BMI 34.9
[2018-04-09] MEDS ORDERED: SODIUM CHLORIDE 1,000 ML IV STA ×2 (02:15→04:55)
[2018-04-09] MEDS ORDERED: ONDANSETRON 4 MG/2 ML VIAL IVPUSH ONE (02:15)
--- NOTE | 2018-04-09 02:15 | PDOC ---
History of Present Illness - General Chief Complaint: Pain Stated Complaint: PANCREATITIS Time Seen by Provider: 04/09/18 02:14 History Source: Patient - History of Present Illness Initial Comments: 04/09/18 03:46 27 year old female with generalized abdominal pain and nausea prior to arrival. patient requesting food. no NVD seen in the ED. denies headache, dizziness, patient seen in the ED two days ago was noted to have elevated lipase. patient left AMA to [facility] ER yesterday. as per patient patient was discharged due to labs being better. PMHX: IDDM Past History - Past Medical History Allergies/Adverse Reactions: Allergies Allergy/AdvReac Type Severity Reaction Status Date / Time mushroom Allergy Verified 04/08/18 22:11 No Known Drug Allergies Allergy Verified 04/08/18 22:11 SEAFOOD Allergy Severe ANAPHYLAXIS Uncoded 04/08/18 22:11 Home Medications: Ambulatory Orders Quetiapine Fumarate [Seroquel] 100 tab PO HS 02/17/17 Clonazepam 1 mg PO BID 10/31/17 Divalproex *ER* [Depakote *ER* -] 500 mg PO BID 10/31/17 Pnv No.95/Ferrous Fum/Folic AC [ Vitamin Tablet] 1 each PO DAILY Risperidone [Risperdal] 2 mg PO BID 10/31/17 Albuterol Sulfate Inhaler - [Ventolin Hfa Inhaler -] 2 inh PO Q4H PRN 02/17/18 Insulin Glargine,Hum.rec.anlog [Lantus Solostar PEN (NF)] 100 units SQ DAILY 06/02 Phenytoin Na Extended [Dilantin -] 100 mg PO BID #30 capsule 02/18/18 Cephalexin Monohydrate [Keflex -] 500 mg PO BID #20 capsule 04/09/18 Anemia: No Asthma: Yes Cancer: No Cardiac Disorders: Yes (RAPID HEARTBEAT HX) CVA: No COPD: No CHF: Yes Dementia: No Diabetes: (Yes; IDDM) GI Disorders: Yes (PANCREATITIS, DIVERTICULOSIS) Disorders: (YES; FREQUENT UTI'S) HTN: (LOW BP) Hypercholesterolemia: No Liver Disease: No Psychiatric Problems: Yes (anxiety, bipolar) Seizures: Yes Thyroid Disease: (Yes; HYPOTHYROIDISM, HYPOTENSION) - Surgical History Abdominal Surgery: No Appendectomy: No Cardiac Surgery: No Cholecystectomy: No Lung Surgery: No Neurologic Surgery: No Orthopedic Surgery: No - Family Disease History Family Disease History: Heart Disease: Grandparents - Reproductive History (#): 1 Para: 0 Cervical CA: No Dysfunctional Uterine Bleeding: No Ectopic : No Endometrial CA: No Polycystic Ovaries: No Therapeutic (s) & number: No Tubal Ligation: No Spontaneous : 1 - Immunization History Immunization Up to Date: Yes - Suicide/Smoking/Psychosocial Hx Smoking Status: Yes Smoking History: Never smoked Have you smoked in the past 12 months: No Number of Cigarettes Smoked Daily: 1 If you are a former smoker, when did you quit?: 2011 Information on smoking cessation initiated: No 'Breaking Loose' booklet given: 03/11/12 Hx Alcohol Use: No Drug/Substance Use Hx: No Substance Use Type: None Hx Substance Use Treatment: No Abd/GI Specific PMHX - Complaint Specific PMHX Pancreatitis: Yes Review of Systems - Review of Systems Able to Perform ROS?: Yes Is the patient limited [place]i proficient: No Constitutional: No: Symptoms Reported, See HPI, Chills, Diaphoresis, Fever, Loss of Appetite, Malaise, Night Sweats, Weakness, Weight Stable, Unintentional Wgt. Loss, Unexplained wgt Loss, Other ABD/GI: Yes: Nausea, Vomiting, Abdominal cramping *Physical Exam - Vital Signs Last Vital Signs Temp Pulse Resp BP Pulse Ox 98.1 F 76 19 113/63 100 04/08/18 21:04 04/08/18 21:04 04/08/18 21:04 04/08/18 21:04 04/08/18 22:13 - Physical Exam General Appearance: Yes: Appropriately Dressed Respiratory/Chest: positive: Lungs Clear, Normal Breath Sounds Gastrointestinal/Abdominal: positive: Normal Bowel Sounds, Tender (generalized tenderness), Soft Musculoskeletal: positive: Normal Inspection Extremity: positive: Normal Capillary Refill, Normal Inspection, Normal Range of Motion Integumentary: positive: Normal Color, Dry, Warm Neurologic: positive: Fully Oriented, Alert, Normal Mood/Affect Moderate Sedation - Procedure Monitoring Vital Signs: Procedure Monitoring Vital Signs Temperature 98.1 F 04/08/18 21:04 Pulse Rate 76 04/08/18 21:04 Respiratory Rate 04/08/18 21:04 Blood Pressure 113/63 04/08/18 21:04 O2 Sat by Pulse Oximetry (%) 100 04/08/18 22:13 ED Treatment Course - LABORATORY CBC & Chemistry Diagram: 04/09/18 03:40 04/09/18 03:40 Medical Decision Making - Medical Decision Making 04/09/18 03:49 patient is alert walking around the hospital, requesting food, watching TV. in no acute distress 04/09/18 05:29 Lipase levels improving from previous visit. patient drinking a jug of water. Insulin 5 units given. will reccheck finger stick, if blood sugar trending down will d/c home. 04/09/18 06:24 patient is eating snacks . blood sugar elevated due to will d/c home. *DC/Admit/Observation/Transfer Diagnosis at time of Disposition: Recurrent UTI Abdominal pain Qualifiers: Abdominal location: generalized Qualified Code(s): R10.84 - Generalized abdominal pain - Discharge Dispostion Disposition: HOME Condition at time of disposition: Fair - Prescriptions Prescriptions: Cephalexin Monohydrate [Keflex -] 500 mg PO BID #20 capsule - Referrals Referrals: Del Daigle [Primary Care Provider] - Call tomorrow Sandip Fried MD [Staff Physician] - Call tomorrow - Patient Instructions Printed Discharge Instructions: DI for Hyperglycemia -- Adult Additional Instructions: * Please call your personal physician to report your Emergency Department visit and to report your progress, if any. * If there is no improvement in symptoms in 2 days call your physician. * Return to the Emergency Department for any worsening symptoms. * drink plenty of fluids follow up with a public relations director as soon as possible. start a bland diet. - Post Discharge Activity
--- NOTE | 2018-04-09 02:26 | PDOC ---
*Physical Exam - Vital Signs Last Vital Signs Temp Pulse Resp BP Pulse Ox 98.1 F 76 19 113/63 100 04/08/18 21:04 04/08/18 21:04 04/08/18 21:04 04/08/18 21:04 04/08/18 22:13 ED Treatment Course - LABORATORY CBC & Chemistry Diagram: 04/09/18 03:40 04/09/18 03:40 Medical Decision Making - Medical Decision Making 04/09/18 02:25 Patient seen by the advanced practice provider under my direct supervision. Ancillary testing reviewed as necessary. I agree with plan as outlined by the advanced practice provider. *DC/Admit/Observation/Transfer Diagnosis at time of Disposition: Abdominal pain Qualifiers: Abdominal location: generalized Qualified Code(s): R10.84 - Generalized abdominal pain - Discharge Dispostion Condition at time of disposition: Fair - Referrals Referrals: Del Daigle [Primary Care Provider] - - Patient Instructions - Post Discharge Activity
[2018-04-09] MEDS ORDERED: ONDANSETRON 4 MG/2 ML VIAL ONE (02:40)
[2018-04-09] MEDS ORDERED: ACETAMINOPHEN 325 MG TABLET (FP) PO ONE (02:47)
[2018-04-09] MEDS ORDERED: ACETAMINOPHEN 325 MG TABLET (FP) ONE (02:49)
[2018-04-09 03:16] LABS: URINE APPEARANCE SLCLOUDY; URINE BILIRUBIN NEGATIVE (<2.0 mg/dL); URINE COLOR STRAW; URINE GLUCOSE (UA) 3+ (NEGATIVE); URINE KETONE NEGATIVE (NEGATIVE); URINE LEUK ESTERASE 1+ (NEGATIVE); URINE NITRITE NEGATIVE (NEGATIVE); URINE PROTEIN NEGATIVE (NEGATIVE); URINE UROBILINOGEN NEGATIVE mg/dL (0.2-1.0)
[2018-04-09 03:36] LABS: COCAINE, UR NEGATIVE ng/ml (CUTOFF=300); METHADONE, UR NEGATIVE ng/ml (CUTOFF=300); OPIATES, URI NEGATIVE ng/ml (CUTOFF=300); PHENCYCLIDINE,URINE NEGATIVE ng/ml (CUTOFF=25); URINE AMPHETAMINES NEGATIVE ng/ml (CUTOFF=500); URINE BARBITURATES NEGATIVE ng/ml (CUTOFF=200); URINE BENZODIAZEPINES NEGATIVE ng/ml (CUTOFF=200)
[2018-04-09 04:00] LABS: EPI CELLS RARE /HPF (FEW); URINE BACTERIA FEW /hpf (NONE SEEN); URINE MUCUS RARE
[2018-04-09 04:49] LABS: BASO % 0.7 % (0-2.0); EOS % 1.5 % (0-4.5); HEMATOCRIT 37.5 % (32.4-45.2); HEMOGLOBIN 13.1 GM/dL (10.7-15.3); LYMPH % 45.6 % (8-40); MCH 30.8 pg (25.7-33.7); MCHC 35.1 g/dl (32.0-36.0); MEAN CELL VOLUME 87.8 fl (80-96); MEAN PLT VOLUME 8.4 fl (7.5-11.1); MONO % 6.6 % (3.8-10.2); NEUT % 45.6 % (42.8-82.8); PLATELET COUNT 185 K/MM3 (134-434); RBC 4.27 M/mm3 (3.60-5.2); RDW 13.1 % (11.6-15.6); WHITE BLOOD COUNT 7.2 K/mm3 (4.0-10.0)
[2018-04-09 04:50] LABS: ALBUMIN 3.3 g/dl (3.4-5.0); ANION GAP 9 MMOL/L (8-16); BLOOD UREA NITROGEN 15 mg/dL (7-18); CALCIUM 8.6 mg/dL (8.5-10.1); CHLORIDE 104 mmol/L (98-107); CO2 25 mmol/L (21-32); CREATININE 0.6 mg/dL (0.55-1.3); LIPASE 644 U/L (73-393); SODIUM 137 mmol/L (136-145); TOT PROT 7.2 g/dl (6.4-8.2)
[2018-04-09 04:51] LABS: ALK PHOS 95 U/L (45-117); BILIRUBIN,TOTAL 0.3 mg/dL (0.2-1); SGOT/AST 7 U/L (15-37); SGPT/ALT 13 U/L (13-61)
[2018-04-09 04:53] LABS: GLUCOSE,RANDOM 411 mg/dL (74-106)
[2018-04-09] MEDS ORDERED: INSULIN REGULAR HUMAN 100 UNITS/ML *VIAL SQ ONE (05:01)
[2018-04-09] MEDS ORDERED: INSULIN REGULAR HUMAN 100 UNITS/ML *VIAL ONE (05:04)
--- NOTE | 2018-04-09 10:50 | EKG ---
Test Reason : Blood Pressure : / mmHG Vent. Rate : 070 BPM Atrial Rate : 070 BPM P-R Int : 170 ms QRS Dur : 086 ms QT Int : 396 ms P-R-T Axes : 052 042 035 degrees QTc Int : 427 ms NORMAL SINUS RHYTHM NORMAL ECG WHEN COMPARED WITH ECG OF 24-MAR-2018 14:31, NO SIGNIFICANT CHANGE WAS FOUND Confirmed by SURJIT ROSAS MD ([id number]) on 04/09/2018 10:50:22 AM Referred By: Confirmed By:SURJIT ROSAS MD
== END 2018-04-09 07:31 | disposition home or self-care (01) ==
LOC: JER 21:04
PROC: 3E0337Z Introduction of Electrolytic and Water Balance Substance into Peripheral Vein, Percutaneous Approach (ICD-10-PCS; principal; 2018-04-08)
PROC: 3E013VG Introduction of Insulin into Subcutaneous Tissue, Percutaneous Approach (ICD-10-PCS; 2018-04-08)
DX: N39.0 Urinary tract infection, site not specified (principal); E10.65 Type 1 diabetes mellitus with hyperglycemia; Z79.4 Long term (current) use of insulin; K86.1 Other chronic pancreatitis; I95.9 Hypotension, unspecified; E03.9 Hypothyroidism, unspecified; F41.9 Anxiety disorder, unspecified; F31.9 Bipolar disorder, unspecified
CPT/HCPCS: 36415; 80053; 80307; 81003; 81015; 82962; 83690; 84703; 85025; 93005; 93010; 96360; 96361; 96372; 99285-25; J7030

== ENCOUNTER 2018-04-09 20:50 | Emergency (ER) | payer OTHER ==
--- NOTE | 2018-04-09 21:02 | PDOC ---
Rapid Medical Evaluation Chief Complaint: Abscess Boil Time Seen by Provider: 04/09/18 21:01 Medical Evaluation: Allergies Allergy/AdvReac Type Severity Reaction Status Date / Time mushroom Allergy Verified 04/08/18 22:11 No Known Drug Allergies Allergy Verified 04/08/18 22:11 SEAFOOD Allergy Severe ANAPHYLAXIS Uncoded 04/08/18 22:11 04/09/18 21:02 I performed a brief in-person evaluation of this patient. Chief complaint: Pus from belly button, pain Pertinent physical exam findings: Scant exudate from umbilicus, no erythema, no focal tenderness. Afebrile. I have ordered the following: Pgu The patient will proceed to the ED for further evaluation. Discharge Disposition - Diagnosis Umbilical pain - Referrals - Patient Instructions - Post Discharge Activity Work/School Note: Back to Work
[2018-04-09 21:05] VITALS: BP 108/59; PULSE 83; TEMP 97.8; BMI 32.5
--- NOTE | 2018-04-10 00:08 | PDOC ---
*Physical Exam - Vital Signs Last Vital Signs Temp Pulse Resp BP Pulse Ox 97.8 F 83 18 108/59 L 97 04/09/18 21:01 04/09/18 21:01 04/09/18 21:01 04/09/18 21:01 04/09/18 21:01 ED Treatment Course - LABORATORY CBC & Chemistry Diagram: 04/10/18 02:04 04/10/18 02:04 - ADDITIONAL ORDERS Additional order review: Laboratory Results 04/09/18 22:30 Urine HCG, Qual Negative Medical Decision Making - Medical Decision Making 04/10/18 00:08 Patient seen by the advanced practice provider under my direct supervision. Ancillary testing reviewed as necessary. I agree with plan as outlined by the advanced practice provider. *DC/Admit/Observation/Transfer Diagnosis at time of Disposition: Umbilical pain - Referrals Referrals: Del Daigle [Primary Care Provider] - - Patient Instructions - Post Discharge Activity Forms/Work/School Notes: Back to Work
--- NOTE | 2018-04-10 00:23 | PDOC ---
History of Present Illness - General Chief Complaint: Abscess Boil Stated Complaint: ABSCESS Time Seen by Provider: 04/09/18 21:01 History Source: Patient, Old Records Exam Limitations: No Limitations - History of Present Illness Initial Comments: 04/10/18 00:17 HISTORY OF PRESENT ILLNESS: 27-year-old woman past medical history of IDDM poorly controlled, CHF, seizures, "brain tumor", pancreatitis who presents emergency department for evaluation of pus in her umbilicus. Patient states she was seen and evaluated in multiple emergency departments over the past few days but didn't notice the drainage from umbilicus and she woke up this morning. Patient states she was evaluated for her pancreatitis in this emergency department or she left AMA and went to [facility] for continued evaluation. Patient also reports an occipital headache which she rated 7/10. Patient is unable to describe her headache reports within the location of her brain tumor. Patient denies blurry vision, nausea, vomiting, dizziness, numbness or tingling. No recent travel or sick contacts. PAST MEDICAL HISTORY: see HPI SURGICAL HISTORY: Denies ALLERGIES: No known drug allergies REVIEW OF SYSTEMS General/Constitutional: Denies fever or chills. Denies weakness, weight change. HEENT: Denies change in vision. Denies ear pain or discharge. Denies sore throat. Cardiovascular: Denies chest pain or shortness of breath. Respiratory: Denies cough, wheezing, or hemoptysis. Gastrointestinal: Denies nausea, vomiting, diarrhea or constipation. Denies rectal bleeding. Genitourinary: Denies dysuria, frequency, or change in urination. Musculoskeletal: Denies joint or muscle swelling or pain. Denies neck or back pain. Skin and breasts: Denies rash or easy bruising. Neurologic: Denies headache, vertigo, loss of consciousness, or loss of sensation. Psychiatric: Denies depression or anxiety. Endocrine: Denies increased thirst. Denies abnormal weight change. Hematologic/Lymphatic: Denies anemia, easy bleeding, or history of blood clots. Allergic/Immunologic: Denies hives or skin allergy. Denies latex allergy. PHYSICAL EXAM General Appearance: Well-appearing, appropriately dressed. No apparent distress , no intoxication. HEENT: EOMI, PERRLA, normal ENT inspection, normal voice, TMs normal, pharynx normal. No conjunctival pallor. No photophobia, scleral icterus. Neck: Supple. Trachea midline. No tenderness, rigidity, carotid bruit, stridor , lymphadenopathy, or thyromegaly. Respiratory/Chest: Lungs CTAB. No shortness of breath, chest tenderness, respiratory distress, accessory muscle use. No crackles, rales, rhonchi, stridor , wheezing, dullness Cardiovascular: RRR. S1, S2. No JVD, murmur, bradycardia, tachycardia. Vascular Pulses: Dorsalis-Pedis (R): 2+, Dorsalis-Pedis (L): 2+ Gastrointestinal/Abdominal: Normal bowel sounds. Abdomen soft, non-distended. No tenderness or rebound tenderness. No organomegaly, pulsatile mass, guarding, hernia, hepatomegaly, splenomegaly. Lymphatic: No adenopathy, tenderness. Musculoskeletal/Extremities: Normal inspection. FROM of all extremities, normal capillary refill. Pelvis Stable. No CVA tenderness. No tenderness to extremities, pedal edema, swelling, erythema or deformity. Integumentary: Appropriate color, dry, warm. No cyanosis, erythema, jaundice or rash Neurologic: skin care technician II-XII intact. Fully oriented, alert. Appropriate mood/affect. Motor strength 5/5. No appreciable EOM palsy, facial droop or sensory deficit. Past History - Past Medical History Allergies/Adverse Reactions: Allergies Allergy/AdvReac Type Severity Reaction Status Date / Time mushroom Allergy Verified 04/09/18 21:05 No Known Drug Allergies Allergy Verified 04/09/18 21:05 SEAFOOD Allergy Severe ANAPHYLAXIS Uncoded 04/09/18 21:05 Home Medications: Ambulatory Orders Quetiapine Fumarate [Seroquel] 100 tab PO HS 02/17/17 Clonazepam 1 mg PO BID 10/31/17 Divalproex *ER* [Depakote *ER* -] 500 mg PO BID 10/31/17 Pnv No.95/Ferrous Fum/Folic AC [ Vitamin Tablet] 1 each PO DAILY Risperidone [Risperdal] 2 mg PO BID 10/31/17 Albuterol Sulfate Inhaler - [Ventolin Hfa Inhaler -] 2 inh PO Q4H PRN 02/17/18 Insulin Glargine,Hum.rec.anlog [Lantus Solostar PEN (NF)] 100 units SQ DAILY 06/02 Phenytoin Na Extended [Dilantin -] 100 mg PO BID #30 capsule 02/18/18 Cephalexin Monohydrate [Keflex -] 500 mg PO BID #20 capsule 04/09/18 Cephalexin Monohydrate [Keflex -] 500 mg PO Q6H #28 capsule 04/10/18 Sulfamethoxazole/Trimethoprim [Bactrim Ds -] 1 tab PO BID #14 tablet 04/10/18 Anemia: No Asthma: Yes Cancer: No Cardiac Disorders: Yes (RAPID HEARTBEAT HX) CVA: No COPD: No CHF: Yes Dementia: No Diabetes: (Yes; IDDM) GI Disorders: Yes (PANCREATITIS, DIVERTICULOSIS) Disorders: (YES; FREQUENT UTI'S) HTN: (LOW BP) Hypercholesterolemia: No Liver Disease: No Psychiatric Problems: Yes (anxiety, bipolar) Seizures: Yes Thyroid Disease: (Yes; HYPOTHYROIDISM, HYPOTENSION) - Surgical History Abdominal Surgery: No Appendectomy: No Cardiac Surgery: No Cholecystectomy: No Lung Surgery: No Neurologic Surgery: No Orthopedic Surgery: No - Family Disease History Family Disease History: Heart Disease: Grandparents - Reproductive History (#): 1 Para: 0 Cervical CA: No Dysfunctional Uterine Bleeding: No Ectopic : No Endometrial CA: No Polycystic Ovaries: No Therapeutic (s) & number: No Tubal Ligation: No Spontaneous : 1 - Immunization History Immunization Up to Date: Yes - Suicide/Smoking/Psychosocial Hx Smoking Status: Yes Smoking History: Never smoked Have you smoked in the past 12 months: No Number of Cigarettes Smoked Daily: 1 If you are a former smoker, when did you quit?: 2011 Information on smoking cessation initiated: No 'Breaking Loose' booklet given: 03/11/12 Hx Alcohol Use: No Drug/Substance Use Hx: No Substance Use Type: None Hx Substance Use Treatment: No *Physical Exam - Vital Signs Last Vital Signs Temp Pulse Resp BP Pulse Ox 97.8 F 83 18 108/59 L 97 04/09/18 21:01 04/09/18 21:01 04/09/18 21:01 04/09/18 21:01 04/09/18 21:01 Moderate Sedation - Procedure Monitoring Vital Signs: Procedure Monitoring Vital Signs Temperature 97.8 F 04/09/18 21:01 Pulse Rate 83 04/09/18 21:01 Respiratory Rate 18 04/09/18 21:01 Blood Pressure 108/59 L 04/09/18 21:01 O2 Sat by Pulse Oximetry (%) 97 04/09/18 21:01 ED Treatment Course - LABORATORY CBC & Chemistry Diagram: 04/10/18 02:04 04/10/18 02:04 - ADDITIONAL ORDERS Additional order review: Laboratory Results 04/09/18 22:30 Urine HCG, Qual Negative Medical Decision Making - Medical Decision Making 04/10/18 03:45 A/P: 27-year-old female with purulent discharge from umbilicus No palpable abscess present in the subcutaneous fat surrounding the umbilicus Erythema present in the umbilicus Abdomen nontender and nondistended Tylenol 975 mg orally now Basic labs CAT scan of abdomen and pelvis CT of head Laboratory testing reveals normal WBCs and normal lipase. Glucose 416. 10 units of regular insulin subcutaneous Recheck blood glucose. If downtrending, no further intervention. 04/10/18 04:46 CT as read by imaging disease control inspector: Periumbilical skin thickening, possibly cellulitis. No abscess or focal fluid collection. No nephrolithiasis, ureterolithiasis or obstructive uropathy. No bladder calculi. Hepatomegaly present. Unremarkable pancreas and gallbladder. No bowel obstruction, colitis, free air or free fluid. Normal appendix. At least one diverticulum seen. repeat BGM. Discharge home on Keflex and Bactrim. *DC/Admit/Observation/Transfer Diagnosis at time of Disposition: Hyperglycemia Cellulitis Qualifiers: Site of cellulitis: trunk Site of cellulitis of trunk: umbilicus Qualified Code (s): L03.316 - Cellulitis of umbilicus - Discharge Dispostion Disposition: HOME Condition at time of disposition: Guarded Decision to Admit order: No - Prescriptions Prescriptions: Cephalexin Monohydrate [Keflex -] 500 mg PO Q6H #28 capsule Sulfamethoxazole/Trimethoprim [Bactrim Ds -] 1 tab PO BID #14 tablet - Referrals Referrals: Del Daigle [Primary Care Provider] - - Patient Instructions Additional Instructions: Take Keflex 500 mg 4 times a day for the next 7 days Take Bactrim DS one tablet twice a day for the next 7 days Finish all antibiotics even if you feel better. Apply warm compresses to your belly button as needed. See your doctor in 2 days for re-evaluation. Return to emergency department for any worsening pain, drainage, or any other concerns. Thank you very much for choosing us to provide your emergent health care needs. - Post Discharge Activity Forms/Work/School Notes: Back to Work
[2018-04-10 02:14] LABS: BASO % 0.8 % (0-2.0); EOS % 1.9 % (0-4.5); HEMATOCRIT 37.8 % (32.4-45.2); HEMOGLOBIN 13.1 GM/dL (10.7-15.3); LYMPH % 39.1 % (8-40); MCH 30.4 pg (25.7-33.7); MCHC 34.5 g/dl (32.0-36.0); MEAN CELL VOLUME 88.1 fl (80-96); MEAN PLT VOLUME 8.1 fl (7.5-11.1); NEUT % 53.2 % (42.8-82.8); PLATELET COUNT 193 K/MM3 (134-434); RBC 4.29 M/mm3 (3.60-5.2); WHITE BLOOD COUNT 7.8 K/mm3 (4.0-10.0)
[2018-04-10] MEDS ORDERED: ACETAMINOPHEN 500 MG TABLET (FP) PO ONE (02:55)
[2018-04-10 02:59] LABS: ALBUMIN 3.5 g/dl (3.4-5.0); ALK PHOS 101 U/L (45-117); ANION GAP 10 MMOL/L (8-16); BILIRUBIN,TOTAL 0.3 mg/dL (0.2-1); BLOOD UREA NITROGEN 12 mg/dL (7-18); CALCIUM 8.5 mg/dL (8.5-10.1); CHLORIDE 103 mmol/L (98-107); CO2 22 mmol/L (21-32); CREATININE 0.7 mg/dL (0.55-1.3); LIPASE 252 U/L (73-393); POTASSIUM 4.4 mmol/L (3.5-5.1); SGOT/AST 6 U/L (15-37); SGPT/ALT 12 U/L (13-61); SODIUM 135 mmol/L (136-145); TOT PROT 7.4 g/dl (6.4-8.2)
[2018-04-10 03:00] LABS: GLUCOSE,RANDOM 416 mg/dL (74-106)
[2018-04-10] MEDS ORDERED: INSULIN REGULAR HUMAN 100 UNITS/ML *VIAL SQ ONE (03:03)
[2018-04-10] MEDS ORDERED: ACETAMINOPHEN 325 MG TABLET (FP) ONE ×2 (03:11→03:13)
[2018-04-10] MEDS ORDERED: INSULIN (NOVOLOG) ASPART 100 UNITS/ML 10ML VIAL ONE (03:12)
== END 2018-04-10 05:04 | disposition home or self-care (01) ==
LOC: JERFT 20:50 → JER 20:50
PROC: 3E013VG Introduction of Insulin into Subcutaneous Tissue, Percutaneous Approach (ICD-10-PCS; principal; 2018-04-09)
DX: L03.316 Cellulitis of umbilicus (principal); E11.65 Type 2 diabetes mellitus with hyperglycemia; Z87.891 Personal history of nicotine dependence; F41.9 Anxiety disorder, unspecified; I95.9 Hypotension, unspecified; E03.9 Hypothyroidism, unspecified
CPT/HCPCS: 36415; 70450-TC; 74176-TC; 80053; 82962; 83690; 84703; 85025; 87070; 87186; 87205; 99281-25

== ENCOUNTER 2018-04-11 19:58 | Emergency (ER) | payer OTHER ==
[2018-04-11 20:02] VITALS: BP 105/60; PULSE 90; TEMP 98.4; BMI 36.3
--- NOTE | 2018-04-11 20:05 | PDOC ---
Rapid Medical Evaluation Time Seen by Provider: 04/11/18 20:02 Medical Evaluation: Allergies Allergy/AdvReac Type Severity Reaction Status Date / Time mushroom Allergy Verified 04/11/18 20:02 No Known Drug Allergies Allergy Verified 04/11/18 20:02 SEAFOOD Allergy Severe ANAPHYLAXIS Uncoded 04/11/18 20:02 Vital Signs Temp Pulse Resp BP Pulse Ox 98.4 F 90 18 105/60 97 04/11/18 20:00 04/11/18 20:00 04/11/18 20:00 04/11/18 20:00 04/11/18 20:00 04/11/18 20:02 Pt c/o: occipital h/a since 1 month, seen by dr carmona for migraine, seen here 12 days ago and had a head ct Pt on brief exam: vss Patient ordered for: toradol im Pt to proceed to the ED Discharge Disposition - Diagnosis Headache - Referrals Referrals: Del Daigle [Primary Care Provider] - - Patient Instructions - Post Discharge Activity
[2018-04-11] MEDS ORDERED: IBUPROFEN 400 MG TABLET (FP) PO ONE ×2 (20:51→20:58)
--- NOTE | 2018-04-11 20:53 | PDOC ---
History of Present Illness - General Chief Complaint: Headache Stated Complaint: Headache Time Seen by Provider: 04/11/18 20:02 History Source: Patient Exam Limitations: No Limitations - History of Present Illness Initial Comments: 04/11/18 20:54 27 yo w/ a h/o DM, CHF, seizures, HLD, psych history comes in c/o 1 yr of headaches, she has seen Neurology, Dr. Donaldson, she was seenyesterdya in the ED , had a head CT done which did not show any acute pathology. (+)occasional photophobia, no other complaints today. She has had this episode intermittently for the past 1 week. It feels like a dull occipital intermittent headache and has been gradually worsening over the past 3-4 days. NO neck pain/stiffness, no fever/chills, no NVD, no change in behavior, no known sick contacts, no recent travel. Past History - Past Medical History Allergies/Adverse Reactions: Allergies Allergy/AdvReac Type Severity Reaction Status Date / Time mushroom Allergy Verified 04/11/18 20:02 No Known Drug Allergies Allergy Verified 04/11/18 20:02 SEAFOOD Allergy Severe ANAPHYLAXIS Uncoded 04/11/18 20:02 Home Medications: Ambulatory Orders Quetiapine Fumarate [Seroquel] 100 tab PO HS 02/17/17 Clonazepam 1 mg PO BID 10/31/17 Divalproex *ER* [Depakote *ER* -] 500 mg PO BID 10/31/17 Pnv No.95/Ferrous Fum/Folic AC [ Vitamin Tablet] 1 each PO DAILY Risperidone [Risperdal] 2 mg PO BID 10/31/17 Albuterol Sulfate Inhaler - [Ventolin Hfa Inhaler -] 2 inh PO Q4H PRN 02/17/18 Insulin Glargine,Hum.rec.anlog [Lantus Solostar PEN (NF)] 100 units SQ DAILY 06/02 Phenytoin Na Extended [Dilantin -] 100 mg PO BID #30 capsule 02/18/18 Cephalexin Monohydrate [Keflex -] 500 mg PO BID #20 capsule 04/09/18 Cephalexin Monohydrate [Keflex -] 500 mg PO Q6H #28 capsule 04/10/18 Sulfamethoxazole/Trimethoprim [Bactrim Ds -] 1 tab PO BID #14 tablet 04/10/18 Anemia: No Asthma: Yes Cancer: No Cardiac Disorders: Yes (RAPID HEARTBEAT HX) CVA: No COPD: No CHF: Yes Dementia: No Diabetes: (Yes; IDDM) GI Disorders: Yes (PANCREATITIS, DIVERTICULOSIS) Disorders: (YES; FREQUENT UTI'S) HTN: (LOW BP) Hypercholesterolemia: No Liver Disease: No Psychiatric Problems: Yes (anxiety, bipolar) Seizures: Yes Thyroid Disease: (Yes; HYPOTHYROIDISM, HYPOTENSION) - Surgical History Abdominal Surgery: No Appendectomy: No Cardiac Surgery: No Cholecystectomy: No Lung Surgery: No Neurologic Surgery: No Orthopedic Surgery: No - Family Disease History Family Disease History: Heart Disease: Grandparents - Reproductive History (#): 1 Para: 0 Cervical CA: No Dysfunctional Uterine Bleeding: No Ectopic : No Endometrial CA: No Polycystic Ovaries: No Therapeutic (s) & number: No Tubal Ligation: No Spontaneous : 1 - Immunization History Immunization Up to Date: Yes - Suicide/Smoking/Psychosocial Hx Smoking Status: Yes Smoking History: Never smoked Have you smoked in the past 12 months: No Number of Cigarettes Smoked Daily: 1 If you are a former smoker, when did you quit?: 2011 'Breaking Loose' booklet given: 03/11/12 Hx Alcohol Use: No Drug/Substance Use Hx: No Substance Use Type: None Hx Substance Use Treatment: No Review of Systems - Review of Systems Able to Perform ROS?: Yes Constitutional: No: Chills, Fever, Malaise, Night Sweats HEENTM: No: Eye Pain, Recent change in vision, Throat Pain Respiratory: No: Cough, Shortness of Breath Cardiac (ROS): No: Chest Pain, Palpitations, Chest Tightness ABD/GI: No: Diarrhea, Nausea, Vomiting, Abdominal cramping : No: Dysuria, Hematuria Musculoskeletal: No: Back Pain Integumentary: No: Rash Neurological: Yes: Headache. No: Numbness, Dizziness Psychiatric: No: Change in Appetite Endocrine: No: Unexplained Weight Loss *Physical Exam - Vital Signs Last Vital Signs Temp Pulse Resp BP Pulse Ox 98.4 F 90 18 105/60 97 04/11/18 20:00 04/11/18 20:00 04/11/18 20:00 04/11/18 20:00 04/11/18 20:00 - Physical Exam General Appearance: Yes: Nourished. No: Apparent Distress HEENT: positive: MARISELA, Normal ENT Inspection, Normal Voice. negative: Pale Conjunctivae, Scleral Icterus (R), Scleral Icterus (L) Neck: positive: Supple. negative: Decreased range of motion, Tender midline Respiratory/Chest: positive: Lungs Clear, Normal Breath Sounds. negative: Respiratory Distress, Accessory Muscle Use Cardiovascular: positive: Regular Rhythm, Regular Rate Comments:: 04/11/18 21:04 Neuro exam : A+Ox3 (person, place, time), normal sensorium. Visual morrissey: full to confrontation. Pupils: equal, round, and reactive to light. EOM: intact and smooth pursuit. No nystagmus. Sensation: V1, V2, and V3 normal b/l Facial strength: muscles of mastication, facial expression, shoulder shrug, and head turn normal. Hearing: grossly intact b/l Mouth: tongue protrudes midline and moves Left/Right equal b/l. Uvula rises symmetrically. Motor: UE and LE 5/5 diffusely. Sensation: light touch and pinprick WNL. Cerebellum: [id number] normal without dysmetria or intention tremor. [id number] wnl. No dysdiadodyskinesia. Gait: unassisted, steady, Romberg negative, and heel-walk normal. No atalgia, difficulty in ambulation or ataxia. Gastrointestinal/Abdominal: positive: Normal Bowel Sounds, Soft. negative: Tender Musculoskeletal: positive: Normal Inspection. negative: CVA Tenderness, Decreased Range of Motion Extremity: positive: Normal Capillary Refill, Normal Inspection, Normal Range of Motion. negative: Tender, Pedal Edema Integumentary: positive: Normal Color, Dry. negative: Jaundice, Rash Moderate Sedation - Procedure Monitoring Vital Signs: Procedure Monitoring Vital Signs Temperature 98.4 F 04/11/18 20:00 Pulse Rate 90 04/11/18 20:00 Respiratory Rate 18 04/11/18 20:00 Blood Pressure 105/60 04/11/18 20:00 O2 Sat by Pulse Oximetry (%) 97 04/11/18 20:00 Medical Decision Making - Medical Decision Making 04/11/18 21:04 27 yo w/ chronic headache, CT done yesterday, no acute changes, no change from 2017, she will follow up with her neurologist, Dr. Donaldson. WIll give motrin here for headache. Return for worsening/concerning sympotms 04/11/18 21:06 *DC/Admit/Observation/Transfer Diagnosis at time of Disposition: Headache Qualifiers: Headache type: unspecified Headache chronicity pattern: chronic headache Intractability: not intractable Qualified Code(s): R51 - Headache - Discharge Dispostion Disposition: HOME Condition at time of disposition: Stable - Referrals Referrals: Del Daigle [Primary Care Provider] - Segundo Donaldson MD [Staff Physician] - - Patient Instructions Printed Discharge Instructions: DI for Headache Additional Instructions: Please make an appointment with your neurologist for your chronic headache. Return for worsening/concerning symptoms - Post Discharge Activity
== END 2018-04-11 21:07 | disposition home or self-care (01) ==
LOC: JERFT 19:58
DX: R51 Headache (principal); Z86.69 Personal history of other diseases of the nervous system and sense organs; E10.9 Type 1 diabetes mellitus without complications; Z79.4 Long term (current) use of insulin; E03.9 Hypothyroidism, unspecified; I95.9 Hypotension, unspecified; G40.909 Epilepsy, unspecified, not intractable, without status epilepticus; F41.9 Anxiety disorder, unspecified; F31.9 Bipolar disorder, unspecified; Z87.19 Personal history of other diseases of the digestive system
CPT/HCPCS: 99281-25

== ENCOUNTER 2018-04-26 15:30 | Emergency (ER) | payer OTHER ==
[2018-04-26 15:35] VITALS: TEMP 97.7; BMI 33.0
--- NOTE | 2018-04-26 16:03 | PDOC ---
History of Present Illness - General History Source: Patient - History of Present Illness Timing/Duration: reports: intermittent <Alina Ramon - Last Filed: 04/26/18 17:24> <Anjel Schulte - Last Filed: 04/29/18 10:54> - General Chief Complaint: Nausea Stated Complaint: NAUSEA Time Seen by Provider: 04/26/18 15:47 Past History - Past Medical History Anemia: No Asthma: Yes Cancer: No Cardiac Disorders: Yes (RAPID HEARTBEAT HX) CVA: No COPD: No CHF: Yes Dementia: No Diabetes: (Yes; IDDM) GI Disorders: Yes (PANCREATITIS, DIVERTICULOSIS) Disorders: (YES; FREQUENT UTI'S) HTN: (LOW BP) Hypercholesterolemia: No Liver Disease: No Psychiatric Problems: Yes (anxiety, bipolar) Seizures: Yes Thyroid Disease: (Yes; HYPOTHYROIDISM, HYPOTENSION) - Surgical History Abdominal Surgery: No Appendectomy: No Cardiac Surgery: No Cholecystectomy: No Lung Surgery: No Neurologic Surgery: No Orthopedic Surgery: No - Family Disease History Family Disease History: Heart Disease: Grandparents - Reproductive History (#): 1 Para: 0 Cervical CA: No Dysfunctional Uterine Bleeding: No Ectopic : No Endometrial CA: No Polycystic Ovaries: No Therapeutic (s) & number: No Tubal Ligation: No Spontaneous : 1 - Immunization History Immunization Up to Date: Yes - Suicide/Smoking/Psychosocial Hx Smoking Status: Yes Smoking History: Never smoked Have you smoked in the past 12 months: No Number of Cigarettes Smoked Daily: 1 If you are a former smoker, when did you quit?: 2011 'Breaking Loose' booklet given: 03/11/12 Hx Alcohol Use: No Drug/Substance Use Hx: No Substance Use Type: None Hx Substance Use Treatment: No <Alina Ramon - Last Filed: 04/26/18 17:24> <Anjel Schulte - Last Filed: 04/29/18 10:54> - Past Medical History Allergies/Adverse Reactions: Allergies Allergy/AdvReac Type Severity Reaction Status Date / Time mushroom Allergy Verified 04/27/18 13:21 No Known Drug Allergies Allergy Verified 04/27/18 13:21 SEAFOOD Allergy Severe ANAPHYLAXIS Uncoded 04/27/18 13:21 Home Medications: Ambulatory Orders Quetiapine Fumarate [Seroquel] 100 tab PO HS 02/17/17 Clonazepam 1 mg PO BID 10/31/17 Divalproex *ER* [Depakote *ER* -] 500 mg PO BID 10/31/17 Pnv No.95/Ferrous Fum/Folic AC [ Vitamin Tablet] 1 each PO DAILY Risperidone [Risperdal] 2 mg PO BID 10/31/17 Albuterol Sulfate Inhaler - [Ventolin Hfa Inhaler -] 2 inh PO Q4H PRN 02/17/18 Insulin Glargine,Hum.rec.anlog [Lantus Solostar PEN (NF)] 100 units SQ DAILY 06/02 Phenytoin Na Extended [Dilantin -] 100 mg PO BID #30 capsule 02/18/18 Abd/GI Specific PMHX - Complaint Specific PMHX Pancreatitis: Yes <Alina Ramon - Last Filed: 04/26/18 17:24> Review of Systems - Review of Systems Constitutional: No: Malaise, Weakness ABD/GI: Yes: Nausea, Vomiting. No: Diarrhea, Abdominal cramping : No: Dysuria <Alina Ramon - Last Filed: 04/26/18 17:24> *Physical Exam - Vital Signs Last Vital Signs Temp Pulse Resp BP Pulse Ox 97.7 F 67 18 109/71 97 04/26/18 15:31 04/26/18 15:31 04/26/18 15:31 04/26/18 15:31 04/26/18 15:31 - Physical Exam Comments: 04/26/18 17:06 Pt currently sitting in chair in ED eating a tray of Yoruba food General Appearance: Yes: Appropriately Dressed. No: Apparent Distress HEENT: positive: Normal Voice Neck: positive: Supple Respiratory/Chest: negative: Respiratory Distress Gastrointestinal/Abdominal: positive: Soft. negative: Tender Musculoskeletal: negative: CVA Tenderness Integumentary: positive: Dry, Warm Neurologic: positive: Fully Oriented, Alert, Normal Mood/Affect <Alina Ramon - Last Filed: 04/26/18 17:24> - Vital Signs Last Vital Signs Temp Pulse Resp BP Pulse Ox 97.7 F 96 H 18 123/72 98 04/26/18 15:31 04/26/18 17:21 04/26/18 17:21 04/26/18 17:21 04/26/18 17:21 <Anjel Schulte - Last Filed: 04/29/18 10:54> Moderate Sedation - Procedure Monitoring Vital Signs: Procedure Monitoring Vital Signs Temperature 97.7 F 04/26/18 15:31 Pulse Rate 67 04/26/18 15:31 Respiratory Rate 18 04/26/18 15:31 Blood Pressure 109/71 04/26/18 15:31 O2 Sat by Pulse Oximetry (%) 97 04/26/18 15:31 <Alina Ramon - Last Filed: 04/26/18 17:24> - Procedure Monitoring Vital Signs: Procedure Monitoring Vital Signs Temperature 97.7 F 04/26/18 15:31 Pulse Rate 96 H 04/26/18 17:21 Respiratory Rate 18 04/26/18 17:21 Blood Pressure 123/72 04/26/18 17:21 O2 Sat by Pulse Oximetry (%) 98 04/26/18 17:21 <Anjel Schulte - Last Filed: 04/29/18 10:54> ED Treatment Course - LABORATORY CBC & Chemistry Diagram: 04/26/18 16:06 04/26/18 16:06 <Alina Ramon - Last Filed: 04/26/18 17:24> - LABORATORY CBC & Chemistry Diagram: 04/26/18 16:06 04/26/18 16:06 - ADDITIONAL ORDERS Additional order review: 04/26/18 16:06 RBC 4.89 MCV 90.2 MCHC 34.3 RDW 12.8 MPV 8.6 Neutrophils % 60.7 Lymphocytes % 30.6 D Monocytes % 7.7 Eosinophils % 0.6 Basophils % 0.4 <Anjel Schulte - Last Filed: 04/29/18 10:54> Medical Decision Making - Medical Decision Making 04/26/18 16:02 27-year-old morbidly obese female, HTN, IDDM, chronic pancreatitis, seizures, here with intermittent nausea, vomiting 4 weeks. No abdominal pain, change in bowel movements, weakness, fever or chills. States her wanted her to come to ED for a test. Pt currently sitting in chair in ER and eating a tray of Yoruba food see exam N/v Currently improved and currently eating in ER Stable w/ benign abd Will check labs given hx, r/o DKA (though unlikely) vs pancreatitis, r/o -labs 04/26/18 17:08 Labs remarkable for BG of 485, no gap. NA 128. Lipase over 1999. Based on patient's records, usually has elevated lipase here, highest 3000. Given no abdominal pain at this time, low suspicion for acute pancreatitis. test negative. IVF and insulin in progress, will repeat fingerstick. Anticipate discharge 04/26/18 17:29 After told her test was negative, but that blood sugar is sig elevated and that she will need IV fluids and insulin to bring it down, patient now states she needs to leave to go pickling solution maker her daughter and refuses treatment. I had lengthy discussion with patient, explaining risks to herself sush as DKA and . Patient verbalized understanding, but continues to refuse further management. Appears to have capacity at this time. Patient sign AMA form 04/26/18 17:31 04/26/18 17:32 <Alina Ramon - Last Filed: 04/26/18 17:24> - Medical Decision Making The patient was seen and evaluated in conjunction with JAZ Ramon under my direct supervision, ancillary studies were reviewed. I agree with the plan as outlined by JAZ Ramon . <Anjel Schulte - Last Filed: 04/29/18 10:54> *DC/Admit/Observation/Transfer <Alina Ramon - Last Filed: 04/26/18 17:24> <Anjel Schulte - Last Filed: 04/29/18 10:54> Diagnosis at time of Disposition: Hyperglycemia Nausea and vomiting Qualifiers: Vomiting type: unspecified Vomiting Intractability: non-intractable Qualified Code(s): R11.2 - Nausea with vomiting, unspecified - Discharge Dispostion Disposition: AGAINST MEDICAL ADVICE Condition at time of disposition: Fair - Referrals Referrals: Del Daigle [Primary Care Provider] - - Patient Instructions Printed Discharge Instructions: DI for Hyperglycemia -- Adult Additional Instructions: You decided to leave against medical advice and were advised of medical risks to yourself such as DKA and Please know you can return at any time for further management
[2018-04-26 16:24] LABS: BASO % 0.4 % (0-2.0); EOS % 0.6 % (0-4.5); HEMATOCRIT 44.1 % (32.4-45.2); HEMOGLOBIN 15.1 GM/dL (10.7-15.3); LYMPH % 30.6 % (8-40); MCHC 34.3 g/dl (32.0-36.0); MEAN CELL VOLUME 90.2 fl (80-96); MEAN PLT VOLUME 8.6 fl (7.5-11.1); MONO % 7.7 % (3.8-10.2); NEUT % 60.7 % (42.8-82.8); PLATELET COUNT 178 K/MM3 (134-434); RBC 4.89 M/mm3 (3.60-5.2); RDW 12.8 % (11.6-15.6); WHITE BLOOD COUNT 10.4 K/mm3 (4.0-10.0)
[2018-04-26 16:27] LABS: URINE APPEARANCE CLOUDY; URINE BILIRUBIN NEGATIVE (<2.0 mg/dL); URINE COLOR STRAW; URINE GLUCOSE (UA) 3+ (NEGATIVE); URINE KETONE NEGATIVE (NEGATIVE); URINE LEUK ESTERASE 3+ (NEGATIVE); URINE NITRITE NEGATIVE (NEGATIVE); URINE PROTEIN NEGATIVE (NEGATIVE); URINE UROBILINOGEN NEGATIVE mg/dL (0.2-1.0)
[2018-04-26 16:28] LABS: HCG,QUALITATIVE URINE Negative
[2018-04-26 16:36] LABS: EPI CELLS FEW /HPF (FEW); URINE BACTERIA RARE /hpf (NONE SEEN); URINE MUCUS RARE
[2018-04-26 16:56] LABS: ALBUMIN 3.7 g/dl (3.4-5.0); ALK PHOS 98 U/L (45-117); ANION GAP 9 MMOL/L (8-16); BILIRUBIN,TOTAL 0.5 mg/dL (0.2-1); BLOOD UREA NITROGEN 14 mg/dL (7-18); CALCIUM 9.3 mg/dL (8.5-10.1); CHLORIDE 97 mmol/L (98-107); CO2 22 mmol/L (21-32); CREATININE 0.7 mg/dL (0.55-1.3); LIPASE 2349 U/L (73-393); POTASSIUM 4.8 mmol/L (3.5-5.1); SGOT/AST 23 U/L (15-37); SGPT/ALT 12 U/L (13-61); SODIUM 128 mmol/L (136-145)
[2018-04-26 17:01] LABS: GLUCOSE,RANDOM 485 mg/dL (74-106)
[2018-04-26] MEDS ORDERED: SODIUM CHLORIDE 1,000 ML IV STA (17:03)
[2018-04-26] MEDS ORDERED: INSULIN REGULAR HUMAN 100 UNITS/ML *VIAL IVPUSH ONE (17:03)
[2018-04-26 17:21] VITALS: BP 123/72; PULSE 96
== END 2018-04-26 17:33 | disposition left against medical advice (07) ==
LOC: JER 15:30
DX: E10.65 Type 1 diabetes mellitus with hyperglycemia (principal); Z79.4 Long term (current) use of insulin; J45.909 Unspecified asthma, uncomplicated; E03.9 Hypothyroidism, unspecified; I50.9 Heart failure, unspecified; I95.9 Hypotension, unspecified; F41.9 Anxiety disorder, unspecified; F31.9 Bipolar disorder, unspecified; Z87.19 Personal history of other diseases of the digestive system; Z86.69 Personal history of other diseases of the nervous system and sense organs
CPT/HCPCS: 36415; 80053; 81003; 81015; 83690; 84703; 85025; 99282-25

== ENCOUNTER 2018-04-27 12:54 | Inpatient (IN) | payer OTHER ==
[2018-04-27 13:22] VITALS: TEMP 98.6; BMI 32.8
[2018-04-27] MEDS ORDERED: SODIUM CHLORIDE 1,000 ML IV STA ×2 (13:34→15:04)
[2018-04-27 14:06] LABS: HEMATOCRIT 41.6 % (32.4-45.2); HEMOGLOBIN 14.7 GM/dL (10.7-15.3); RBC 4.69 M/mm3 (3.60-5.2); WHITE BLOOD COUNT 7.8 K/mm3 (4.0-10.0)
[2018-04-27 14:06] LABS: VENOUS PC02 34.4 mmHg (38-52); VENOUS PH 7.39 (7.32-7.42)
[2018-04-27 14:07] LABS: BASO % 0.5 % (0-2.0); EOS % 0.7 % (0-4.5); LYMPH % 32.3 % (8-40); MCH 31.4 pg (25.7-33.7); MCHC 35.3 g/dl (32.0-36.0); MEAN CELL VOLUME 88.8 fl (80-96); MEAN PLT VOLUME 8.8 fl (7.5-11.1); MONO % 6.7 % (3.8-10.2); NEUT % 59.8 % (42.8-82.8); PLATELET COUNT 177 K/MM3 (134-434); RDW 12.5 % (11.6-15.6)
[2018-04-27] MEDS ORDERED: ACETAMINOPHEN 1000 MG/100 ML VIAL (NON FORMULARY) IVPB ONE (14:14)
[2018-04-27 14:24] LABS: ALBUMIN 3.5 g/dl (3.4-5.0); ALK PHOS 88 U/L (45-117); ANION GAP 10 MMOL/L (8-16); BILIRUBIN,TOTAL 0.5 mg/dL (0.2-1); BLOOD UREA NITROGEN 9 mg/dL (7-18); CALCIUM 8.9 mg/dL (8.5-10.1); CHLORIDE 101 mmol/L (98-107); CO2 21 mmol/L (21-32); CREATININE 0.9 mg/dL (0.55-1.3); LDH 110 U/L (84-246); LIPASE 1166 U/L (73-393); POTASSIUM 4.2 mmol/L (3.5-5.1); SGOT/AST 8 U/L (15-37); SGPT/ALT 11 U/L (13-61); SODIUM 132 mmol/L (136-145); TOT PROT 7.6 g/dl (6.4-8.2)
[2018-04-27 14:28] LABS: GLUCOSE,RANDOM 517 mg/dL (74-106)
[2018-04-27 14:33] LABS: URINE APPEARANCE CLOUDY; URINE BILIRUBIN NEGATIVE (<2.0 mg/dL); URINE COLOR LTYELLOW; URINE GLUCOSE (UA) 3+ (NEGATIVE); URINE KETONE TRACE (NEGATIVE); URINE LEUK ESTERASE 3+ (NEGATIVE); URINE NITRITE NEGATIVE (NEGATIVE); URINE PROTEIN NEGATIVE (NEGATIVE); URINE UROBILINOGEN NEGATIVE mg/dL (0.2-1.0)
[2018-04-27 14:38] LABS: ACETONE SERUM NEGATIVE (NEGATIVE)
[2018-04-27] MEDS ORDERED: ACETAMINOPHEN INJECTION 100 ML IVPB ONE (14:58)
[2018-04-27] MEDS ORDERED: INSULIN REGULAR HUMAN 100 UNITS/ML *VIAL ONE (14:59)
[2018-04-27] MEDS ORDERED: INSULIN REGULAR HUMAN 100 UNITS/ML *VIAL SQ ONE (15:04)
[2018-04-27 15:29] LABS: EPI CELLS FEW /HPF (FEW); URINE BACTERIA 2 /hpf (NONE SEEN); URINE TRICHOMONAS 2+
--- NOTE | 2018-04-27 15:29 | PDOC ---
History of Present Illness - General Chief Complaint: Blood Sugar Problem Stated Complaint: ABD/VOMITING Time Seen by Provider: 04/27/18 13:29 History Source: Patient Exam Limitations: No Limitations - History of Present Illness Initial Comments: 04/27/18 14:30 27-year-old female with history of diabetes and pancreatitis presents the ED with continual upper abdominal pain associated nausea, generalized weakness, poor appetite and mild frontal headache since this morning. Patient was here yesterday for her left AMA secondary to social issues with her daughter. Patient states that time had elevated glucose and lipase. Timing/Duration: getting worse Severity: moderate Associated Symptoms: reports: weakness, other (upper abd pain) Past History - Travel Traveled outside of the country in the last 30 days: No Close contact w/someone who was outside of country & ill: No - Past Medical History Allergies/Adverse Reactions: Allergies Allergy/AdvReac Type Severity Reaction Status Date / Time mushroom Allergy Verified 04/27/18 13:21 No Known Drug Allergies Allergy Verified 04/27/18 13:21 SEAFOOD Allergy Severe ANAPHYLAXIS Uncoded 04/27/18 13:21 Home Medications: Ambulatory Orders Quetiapine Fumarate [Seroquel] 100 tab PO HS 02/17/17 Clonazepam 1 mg PO BID 10/31/17 Divalproex *ER* [Depakote *ER* -] 500 mg PO BID 10/31/17 Pnv No.95/Ferrous Fum/Folic AC [ Vitamin Tablet] 1 each PO DAILY Risperidone [Risperdal] 2 mg PO BID 10/31/17 Albuterol Sulfate Inhaler - [Ventolin Hfa Inhaler -] 2 inh PO Q4H PRN 02/17/18 Insulin Glargine,Hum.rec.anlog [Lantus Solostar PEN (NF)] 100 units SQ DAILY 06/02 Phenytoin Na Extended [Dilantin -] 100 mg PO BID #30 capsule 02/18/18 Anemia: No Asthma: Yes Cancer: No Cardiac Disorders: Yes (RAPID HEARTBEAT HX) CVA: No COPD: No CHF: Yes Dementia: No Diabetes: (Yes; IDDM) GI Disorders: Yes (PANCREATITIS, DIVERTICULOSIS) Disorders: (YES; FREQUENT UTI'S) HTN: (LOW BP) Hypercholesterolemia: No Liver Disease: No Psychiatric Problems: Yes (anxiety, bipolar) Seizures: Yes Thyroid Disease: (Yes; HYPOTHYROIDISM, HYPOTENSION) - Surgical History Abdominal Surgery: No Appendectomy: No Cardiac Surgery: No Cholecystectomy: No Lung Surgery: No Neurologic Surgery: No Orthopedic Surgery: No - Family Disease History Family Disease History: Heart Disease: Grandparents - Reproductive History (#): 1 Para: 0 Cervical CA: No Dysfunctional Uterine Bleeding: No Ectopic : No Endometrial CA: No Polycystic Ovaries: No Therapeutic (s) & number: No Tubal Ligation: No Spontaneous : 1 - Immunization History Immunization Up to Date: Yes - Suicide/Smoking/Psychosocial Hx Smoking Status: Yes Smoking History: Current some day smoker Have you smoked in the past 12 months: No Number of Cigarettes Smoked Daily: 1 If you are a former smoker, when did you quit?: 2011 Information on smoking cessation initiated: Yes 'Breaking Loose' booklet given: 03/11/12 Hx Alcohol Use: No Drug/Substance Use Hx: No Substance Use Type: None Hx Substance Use Treatment: No Patient Lives Alone: No Lives with/in: parents Review of Systems - Review of Systems Able to Perform ROS?: No Is the patient limited Azeri proficient: No Constitutional: Yes: Loss of Appetite, Weakness HEENTM: No: Symptoms Reported Respiratory: No: Symptoms reported Cardiac (ROS): No: Symptoms Reported ABD/GI: Yes: Nausea, Poor Appetite, Poor Fluid Intake, Abdominal cramping. No: Constipated, Diarrhea, Vomiting : No: Symptoms Reported Musculoskeletal: No: Symptoms Reported Integumentary: No: Symptoms Reported Neurological: Yes: Headache (mild frontal) *Physical Exam - Vital Signs Last Vital Signs Temp Pulse Resp BP Pulse Ox 98.6 F 106 H 18 106/68 99 04/27/18 13:20 04/27/18 13:20 04/27/18 13:20 04/27/18 13:20 04/27/18 14:00 - Physical Exam General Appearance: Yes: Nourished, Appropriately Dressed. No: Apparent Distress HEENT: positive: Pharynx Normal (dry). negative: Pale Conjunctivae Neck: positive: Supple Respiratory/Chest: positive: Lungs Clear, Normal Breath Sounds. negative: Respiratory Distress, Accessory Muscle Use Cardiovascular: positive: Regular Rhythm, Tachycardia. negative: Murmur Gastrointestinal/Abdominal: positive: Soft, Tenderness (epigastric and right upper quad) Musculoskeletal: negative: CVA Tenderness Integumentary: positive: Normal Color, Warm, Moist Neurologic: positive: Motor Strength 5/5 (ambulatory) Moderate Sedation - Procedure Monitoring Vital Signs: Procedure Monitoring Vital Signs Temperature 98.6 F 04/27/18 13:20 Pulse Rate 106 H 04/27/18 13:20 Respiratory Rate 18 04/27/18 13:20 Blood Pressure 106/68 04/27/18 13:20 O2 Sat by Pulse Oximetry (%) 99 04/27/18 14:00 ED Treatment Course - LABORATORY CBC & Chemistry Diagram: 04/27/18 13:58 04/27/18 13:58 - ADDITIONAL ORDERS Additional order review: Laboratory Results 04/27/18 04/27/18 04/27/18 14:24 14:24 14:00 VBG pH 7.39 POC VBG pCO2 34.4 L POC VBG pO2 62.0 H Mixed VBG HCO3 20.3 Sodium Potassium Chloride Carbon Dioxide Anion Gap BUN Creatinine Creat Clearance w eGFR Random Glucose Lactic Acid Calcium Magnesium Total Bilirubin AST ALT Alkaline Phosphatase LD Total Total Protein Albumin Total Amylase Lipase Urine Color Ltyellow Urine Appearance Cloudy Urine pH 5.0 Ur Specific Godwin 1.032 Urine Protein Negative Urine Glucose (UA) 3+ H Urine Ketones Trace H Urine Blood Negative Urine Nitrite Negative Urine Bilirubin Negative Urine Urobilinogen Negative Ur Leukocyte Esterase 3+ H Urine HCG, Qual Negative Acetone, Qual 04/27/18 04/27/18 04/27/18 13:58 13:58 13:58 VBG pH POC VBG pCO2 POC VBG pO2 Mixed VBG HCO3 Sodium 132 L Potassium 4.2 Chloride 101 Carbon Dioxide 21 Anion Gap 10 BUN 9 Creatinine 0.9 Creat Clearance w eGFR > 60 Random Glucose 517 H* Lactic Acid 3.2 H* Calcium 8.9 Magnesium 2.0 Total Bilirubin 0.5 AST 8 L ALT 11 L Alkaline Phosphatase 88 LD Total 110 Total Protein 7.6 Albumin 3.5 Total Amylase 56 Lipase 1166 H Urine Color Urine Appearance Urine pH Ur Specific Godwin Urine Protein Urine Glucose (UA) Urine Ketones Urine Blood Urine Nitrite Urine Bilirubin Urine Urobilinogen Ur Leukocyte Esterase Urine HCG, Qual Acetone, Qual Negative L 04/27/18 13:58 RBC 4.69 MCV 88.8 MCHC 35.3 RDW 12.5 MPV 8.8 Neutrophils % 59.8 Lymphocytes % 32.3 Monocytes % 6.7 Eosinophils % 0.7 Basophils % 0.5 - Medications Given in the ED: ED Medications Discontinued Medications Generic Name Dose Route Start Last Admin Trade Name Candis PRN Reason Stop Dose Admin Sodium Chloride 1,000 mls @ 1,000 mls/hr 04/27/18 13:34 04/27/18 14:00 Normal Saline - IV 04/27/18 14:33 1,000 mls/hr ASDIR STA Administration Medical Decision Making - Medical Decision Making 04/27/18 14:32 Chief complaint: Continual nausea abdominal pain for by mouth intake and mild frontal headache since yesterday. Patient signed out AMA since she had no daycare for her daughter. Patient denies fever but did not check her glucose this morning Exam: Tachycardic mouth dry epigastric and right upper quadrant tenderness. Plan: Labs, VBG, acetone, urine, IV fluids, IV Tylenol LDH lipase and amylase ordered 04/27/18 15:34 Laboratory Tests 04/27/18 04/27/18 04/27/18 13:58 13:58 13:58 WBC 7.8 Hgb 14.7 Hct 41.6 Plt Count 177 Absolute Neuts (auto) 4.6 VBG pH POC VBG pCO2 Mixed VBG HCO3 Sodium 132 L Potassium 4.2 Chloride 101 Carbon Dioxide 21 Anion Gap 10 BUN 9 Creatinine 0.9 Random Glucose 517 H* Lactic Acid Calcium 8.9 Magnesium 2.0 Total Bilirubin 0.5 AST 8 L ALT 11 L Alkaline Phosphatase 88 LD Total 110 Total Protein 7.6 Albumin 3.5 Total Amylase 56 Lipase 1166 H Urine Glucose (UA) Urine Ketones Ur Leukocyte Esterase Urine WBC (Auto) Urine RBC (Auto) Urine HCG, Qual Acetone, Qual Negative L 04/27/18 04/27/18 04/27/18 13:58 14:00 14:24 WBC Hgb Hct Plt Count Absolute Neuts (auto) VBG pH 7.39 POC VBG pCO2 34.4 L Mixed VBG HCO3 20.3 Sodium Potassium Chloride Carbon Dioxide Anion Gap BUN Creatinine Random Glucose Lactic Acid 3.2 H* Calcium Magnesium Total Bilirubin AST ALT Alkaline Phosphatase LD Total Total Protein Albumin Total Amylase Lipase Urine Glucose (UA) 3+ H Urine Ketones Trace H Ur Leukocyte Esterase 3+ H Urine WBC (Auto) 20-40 Urine RBC (Auto) 0-3 Urine HCG, Qual Acetone, Qual 04/27/18 14:24 WBC Hgb Hct Plt Count Absolute Neuts (auto) VBG pH POC VBG pCO2 Mixed VBG HCO3 Sodium Potassium Chloride Carbon Dioxide Anion Gap BUN Creatinine Random Glucose Lactic Acid Calcium Magnesium Total Bilirubin AST ALT Alkaline Phosphatase LD Total Total Protein Albumin Total Amylase Lipase Urine Glucose (UA) Urine Ketones Ur Leukocyte Esterase Urine WBC (Auto) Urine RBC (Auto) Urine HCG, Qual Negative Acetone, Qual 04/27/18 15:36 Patient's urine culture shows Escherichia coli which is sensitive to cephalosporins. Patient will be ordered for ceftriaxone. 04/27/18 16:[address] Hasy and will admit to med/surg. 04/27/18 16:58 Laboratory Tests 04/27/18 16:00 Lactic Acid 1.0 *DC/Admit/Observation/Transfer Diagnosis at time of Disposition: Abdominal pain, Hyperglycemia, Elevated lactic acid level - Discharge Dispostion Decision to Admit order: Yes - Referrals Referrals: Del Daigle [Primary Care Provider] - - Patient Instructions - Post Discharge Activity
[2018-04-27] MEDS ORDERED: CEFTRIAXONE 1 GM in DEXTROSE 5%-WATER - 50 ML IVPB ONE (15:36)
[2018-04-27] MEDS ORDERED: CEFTRIAXONE 1 GM/50 ML BAG ONE (15:55)
[2018-04-27] MEDS ORDERED: ONDANSETRON 4 MG/2 ML VIAL IVPUSH ONE (16:03)
[2018-04-27] MEDS ORDERED: ONDANSETRON 4 MG/2 ML VIAL ONE (16:46)
[2018-04-27] MEDS ORDERED: ACETAMINOPHEN 325 MG TABLET (FP) PO PRN (16:48)
[2018-04-27 20:49] VITALS: BP 126/78; PULSE 78
--- NOTE | 2018-04-27 21:23 | HOSP ---
Subjective - Review of Symptoms Events since last encounter: This is a 27 year old woman who presented to the ED yesterday with nausea, and who was found to have glucose 485, lipase 2349, sodium 128. UA showed 3+ leukocyte esterase, WBC 68. She signed out AMA and returned today. Earlier, sodium was 132, glucose 517, lipase 1166, lactic acid 3.2. UA showed 3+ leukocyte esterase, 20-40 WBC. Urine culture reportedly grew E. coli although there is no report available. She was treated with IV fluid, Rocephin, Novolog, and she was admitted. She says she feels well and wants to sign out AMA. Physical Examination Vital Signs: Vital Signs Temperature 98.6 F 04/27/18 13:20 Pulse Rate 78 04/27/18 20:49 Respiratory Rate 18 04/27/18 20:49 Blood Pressure 126/78 04/27/18 20:49 O2 Sat by Pulse Oximetry (%) 99 04/27/18 20:49 Constitutional: Yes: No Distress Cardiovascular: Yes: Regular Rate and Rhythm, S1, S2 Respiratory: Yes: CTA Bilaterally Gastrointestinal: Yes: Normal Bowel Sounds, Soft, Abdomen, Obese. No: Tenderness Labs: CBC, BMP 04/27/18 13:58 04/27/18 13:58 Hospitalist Encounter Assessment: This is a 27 year old woman who was admitted today with pancreatitis, hyperglycemia, UTI, lactic acidemia. Outcome: Patient counselled regarding staying for further treatment. She was advised of the risks of leaving, including worsening pancreatitis, sepsis, hyperglycemia, . She continues to want to sign out against meical advice.
[2018-04-27] MEDS ORDERED: DIVALPROEX NA *ER* EXTEND REL 500 MG TABLET.SA (FP) PO SCH (22:00)
[2018-04-27] MEDS ORDERED: clonazePAM 0.5 MG TABLET PO SCH (22:00)
[2018-04-27] MEDS ORDERED: PATIENT'S OWN MEDICATION (NON-FORMULARY) (Clonazepam [Clonazepam] 1 MG) PO SCH (22:00)
[2018-04-27] MEDS ORDERED: INSULIN (LEVEMIR) 100 UNITS/ML UNITS SQ SCH (22:00)
[2018-04-27] MEDS ORDERED: INSULIN SLIDING SCALE (NOVOLOG) 1 VIAL SQ SCH (22:00)
[2018-04-27] MEDS ORDERED: QUEtiapine FUMARATE 100 MG TABLET (FP) PO SCH (22:00)
[2018-04-27] MEDS ORDERED: PHENYTOIN NA EXTENDED 100 MG CAPSULE (FP) PO SCH (22:00)
[2018-04-27] MEDS ORDERED: HEPARIN NA (PORCINE) 5,000 UNITS/ML 1ML VIAL SQ SCH (22:00)
[2018-04-28] MEDS ORDERED: CEFTRIAXONE 1 GM in DEXTROSE 5%-WATER - 50 ML IVPB SCH (10:00)
[2018-04-28] MEDS ORDERED: DIVALPROEX SODIUM 500 MG TABLET E.C. PO SCH (11:00)
--- NOTE | 2018-04-28 12:30 | PN ---
Progress Note (short form) - Note Progress Note: patient signed out AMA last night
== END 2018-04-27 22:00 | disposition left against medical advice (07) | DRG 282 ==
LOC: JER 12:54 → JERBED 16:02
PROVIDERS: ADMIT Family Medicine; ATTEND Family Medicine
DX: K85.90 Acute pancreatitis without necrosis or infection, unspecified (principal); E87.2 Acidosis; E03.9 Hypothyroidism, unspecified; F41.9 Anxiety disorder, unspecified; F31.9 Bipolar disorder, unspecified; Z87.440 Personal history of urinary (tract) infections; E11.65 Type 2 diabetes mellitus with hyperglycemia; N39.0 Urinary tract infection, site not specified; Z79.4 Long term (current) use of insulin
CPT/HCPCS: 36415; 80053; 81003; 81015; 82009; 82150; 82803; 82962; 83605; 83615; 83690; 83735; 84484; 84703; 85025; 87040; 99283-25; J0131; J7030

== ENCOUNTER 2018-05-02 19:18 | Observation (INO) | payer OTHER ==
--- NOTE | 2018-05-02 19:35 | PDOC ---
Rapid Medical Evaluation Time Seen by Provider: 05/02/18 19:34 Medical Evaluation: Allergies Allergy/AdvReac Type Severity Reaction Status Date / Time mushroom Allergy Verified 04/27/18 13:21 No Known Drug Allergies Allergy Verified 04/27/18 13:21 SEAFOOD Allergy Severe ANAPHYLAXIS Uncoded 04/27/18 13:21 05/02/18 19:34 I performed a brief in-person evaluation of this patient. Chief complaint: Abdominal pain, dyspnea, left-sided neck pain since last night. Pertinent physical exam findings: Clear lungs, no focal abdominal tenderness, no meningismus I have ordered the following: Urine , urinalysis Patient will proceed to the ED for further evaluation. Discharge Disposition - Diagnosis Abdominal pain, Neck pain, Dyspnea - Referrals - Patient Instructions - Post Discharge Activity
--- NOTE | 2018-05-02 21:12 | PDOC ---
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 there are no alleviating or exacerbating factors, this pain feels similar to her previous pancreatitis episodes. She started a liquid diet with Atkins shakes, juice and glucerna this week. BGMs at home are always high, no change in the last few days. She is currently on day 5 of 7 on keflex for a UTI. She was recently seen in ED on 04/27. has received her flu shot with PCP for this season ROS pos for 6 loose nonbloody BMs last night, chronic headaches and LE pain. says her A1c last month with PCP was 13. denies fevers, cough, vomiting, dysuria, sick contacts, palpitation, syncope, rash. takes 60unit humalog 70/30 with lunch and dinner, 100units of lantus in the AM. Past History - Travel Traveled outside of the country in the last 30 days: No Close contact w/someone who was outside of country & ill: No - Past Medical History Allergies/Adverse Reactions: Allergies Allergy/AdvReac Type Severity Reaction Status Date / Time mushroom Allergy Verified 05/03/18 03:45 No Known Drug Allergies Allergy Verified 05/03/18 03:45 SEAFOOD Allergy Severe ANAPHYLAXIS Uncoded 05/03/18 03:45 Home Medications: Ambulatory Orders Quetiapine Fumarate [Seroquel] 100 tab PO HS 02/17/17 Clonazepam 1 mg PO BID 10/31/17 Divalproex *ER* [Depakote *ER* -] 500 mg PO BID 10/31/17 Pnv No.95/Ferrous Fum/Folic AC [ Vitamin Tablet] 1 each PO DAILY Risperidone [Risperdal] 2 mg PO BID 10/31/17 Albuterol Sulfate Inhaler - [Ventolin Hfa Inhaler -] 2 inh PO Q4H PRN 02/17/18 Insulin Glargine,Hum.rec.anlog [Lantus Solostar PEN (NF)] 100 units SQ DAILY 06/02 Phenytoin Na Extended [Dilantin -] 100 mg PO BID #30 capsule 02/18/18 Anemia: No Asthma: Yes Cancer: No Cardiac Disorders: Yes (RAPID HEARTBEAT HX) CVA: No COPD: No CHF: Yes Dementia: No Diabetes: (Yes; IDDM) GI Disorders: Yes (PANCREATITIS, DIVERTICULOSIS) Disorders: (YES; FREQUENT UTI'S) HTN: (LOW BP) Hypercholesterolemia: No Liver Disease: No Psychiatric Problems: Yes (anxiety, bipolar) Seizures: Yes Thyroid Disease: (Yes; HYPOTHYROIDISM, HYPOTENSION) - Surgical History Abdominal Surgery: No Appendectomy: No Cardiac Surgery: No Cholecystectomy: No Lung Surgery: No Neurologic Surgery: No Orthopedic Surgery: No - Family Disease History Family Disease History: Heart Disease: Grandparents - Reproductive History (#): 1 Para: 0 Cervical CA: No Dysfunctional Uterine Bleeding: No Ectopic : No Endometrial CA: No Polycystic Ovaries: No Therapeutic (s) & number: No Tubal Ligation: No Spontaneous : 1 - Immunization History Immunization Up to Date: Yes - Suicide/Smoking/Psychosocial Hx Smoking Status: Yes Smoking History: Never smoked Have you smoked in the past 12 months: No Number of Cigarettes Smoked Daily: 1 If you are a former smoker, when did you quit?: 2011 Information on smoking cessation initiated: No 'Breaking Loose' booklet given: 03/11/12 Hx Alcohol Use: No Drug/Substance Use Hx: No Substance Use Type: None Hx Substance Use Treatment: No Review of Systems - Review of Systems Constitutional: No: Fever, Loss of Appetite, Weakness, Unintentional Wgt. Loss HEENTM: No: Blurred Vision, Tinnitus, Difficulty Swallowing Respiratory: Yes: Shortness of Breath. No: Cough, SOB with Exertion, Productive cough Cardiac (ROS): Yes: Chest Tightness. No: Edema, Lightheadedness, Palpitations, Syncope ABD/GI: Yes: Diarrhea, Nausea, Other (epigastric pain). No: Abdominal Distended , Vomiting : No: Dysuria, Hematuria Musculoskeletal: Yes: Back Pain (chronic) Integumentary: No: Erythema, Flushing, Lesions, Rash Neurological: Yes: Headache (chronic), Dizziness. No: Tingling, Weakness, Unsteady Gait *Physical Exam - Vital Signs Last Vital Signs Temp Pulse Resp BP Pulse Ox 98.4 F 66 20 103/63 100 05/02/18 19:36 05/02/18 19:36 05/02/18 19:36 05/02/18 19:36 05/02/18 19:36 - Physical Exam General Appearance: Yes: Appropriately Dressed HEENT: positive: MARISELA, Pharynx Normal. negative: Pharyngeal Erythema, Tonsillar Exudate Neck: positive: Trachea midline, Normal Thyroid, Supple. negative: Carotid bruit, Rigidity, Thyromegaly Respiratory/Chest: positive: Normal Breath Sounds. negative: Crackles, Rhonchi , Wheezing Cardiovascular: positive: Regular Rhythm, Regular Rate, S1, S2. negative: Murmur Vascular Pulses: Dorsalis-Pedis (R): 2+, Doralis-Pedis (L): 2+ Gastrointestinal/Abdominal: positive: Normal Bowel Sounds, Tender (epigastrium, diffusely in upper quadrants and periumbilicus), Soft. negative: Guarding, Rebound Musculoskeletal: positive: CVA Tenderness (L). negative: CVA Tenderness (R), Muscle Spasm, Vertebral Tenderness Extremity: positive: Normal Range of Motion, Other (c/o tenderness throughout legs b/l with light touch ) Integumentary: positive: Dry, Warm. negative: Petechiae, Rash Neurologic: positive: Fully Oriented, Alert Moderate Sedation - Procedure Monitoring Vital Signs: Procedure Monitoring Vital Signs Temperature 98.4 F 05/02/18 19:36 Pulse Rate 66 05/02/18 19:36 Respiratory Rate 20 05/02/18 19:36 Blood Pressure 103/63 05/02/18 19:36 O2 Sat by Pulse Oximetry (%) 100 05/02/18 19:36 ED Treatment Course - LABORATORY CBC & Chemistry Diagram: 05/03/18 12:40 05/03/18 12:40 Medical Decision Making - Medical Decision Making 05/02/18 21:33 27 yr old noncompliant IDDM, with multiple co-morbidities presents with epigastric pain a/w nausea, sob and left neck pain. diffs include pancreatitis, DKA in this patient with frequent ED visit for similar symptoms. Will check cbc, cmp, lactic, lipase and ldh to evaluate for pancreatitis and dka if labs show acute pancreatitis will discuss with patient to stay as inpatient for adequate treatment, as pt has a hx of signing out AMA as per chart review. 05/02/18 23:[address] Pacheco to continue patient f/u, pending repeat labs and disposition. *DC/Admit/Observation/Transfer Diagnosis at time of Disposition: Abdominal pain, Neck pain, Dyspnea - Referrals - Patient Instructions - Post Discharge Activity
[2018-05-02] MEDS ORDERED: SODIUM CHLORIDE 1,000 ML IV STA (21:14)
--- NOTE | 2018-05-02 21:27 | PDOC ---
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 Patient notes she has been feeling increased shortness of breath. She reports epigastric pain that radiates to her low back and left flank. Patient states that the pain is constant, without any aggravating or alleviating factors. She also reports associated nausea, 5 episodes of non- bloody loose stool, and left-sided neck pain. Patient has a history of pancreatitis, and notes that her current symptoms feel similar to those episodes. She notes she was seen in the ED 5 days ago for a UTI, and is on 07/22 day of Keflex. Patient confirms she is up to date on her flu shot The patient denies chest pain and dizziness. Denies fever, chills, vomit, and constipation. Denies dysuria, frequency, urgency and hematuria. Allergies: Mushrooms & Seafood Past surgical history: None reported Social history: No reported PCP: Dr. Del Daigle 05/02/18 22:08 - Physicial Exam PE: GENERAL: Awake, alert, and fully oriented, in no acute distress HEAD: No signs of trauma EYES: PERRLA, EOMI, sclera anicteric, conjunctiva clear ENT: Auricles normal inspection, hearing grossly normal, nares patent. Moist mucosa NECK: Normal ROM, supple, no masses ABDOMEN: +Epigastric tenderness to palpation. Soft, nontender. No guarding, no rebound. No masses EXTREMITIES: Normal range of motion, no edema. No clubbing or cyanosis. No cords, erythema, or tenderness NEUROLOGICAL: Cranial nerves II through XII grossly intact. Normal speech, normal gait SKIN: Warm, Dry, normal turgor, no rashes or lesions noted. 05/02/18 22:33 - Medical Decision Making Documentation prepared by SOPHIE Carter, acting as medical receptionist medical assistant for Clay Verde MD. 05/02/18 22:09 <Greta Fitzpatrick - Last Filed: 05/02/18 22:33> - Resident Resident Name: [facility] - ED Attending Attestation I have performed the following: I have examined & evaluated the patient, The case was reviewed & discussed with the resident, I agree w/resident's findings & plan, Exceptions are as noted - Medical Decision Making 05/02/18 21:26 A portion of this note was documented by scribe services under my direction. I have reviewed the details of the note, within reason, and agree with the documentation with the following case summary and management plan written by me. Patient treated in the ED. Nursing notes are reviewed and incorporated into the medical decision-making. Vital signs reviewed. Peripheral IV access obtained by the nurse, laboratory studies are drawn and sent, reviewed and interpreted by myself. Vital Signs Temp Pulse Resp BP Pulse Ox 98.4 F 66 20 103/63 100 05/02/18 19:36 05/02/18 19:36 05/02/18 19:36 05/02/18 19:36 05/02/18 19:36 27-year-old female history of diabetes, congestive heart failure, seizure disorder, UTIs, recurrent pancreatitis, well-known to me from prior ED visits, presents with persistent epigastric pain since last several days. The patient reports that this feels exactly like her pancreatitis with associated nausea but denies fevers or chills. Denies diarrhea. Patient was here earlier this week but left as she did not want to [facility] emergency department. However, today she reports that she will stay. We'll obtain labs including a lipase. We'll rule out pancreatitis and if the patient has elevated lipase, we'll admit the patient to the hospital. 05/03/18 01:40 CBC, BMP 05/02/18 22:23 05/03/18 00:30 CMP Sodium 134 mmol/L (136-145) L 05/03/18 00:30 Potassium 3.8 mmol/L (3.5-5.1) 05/03/18 00:30 Chloride 100 mmol/L (98-107) 05/03/18 00:30 Carbon Dioxide 23 mmol/L (21-32) 05/03/18 00:30 Anion Gap 10 MMOL/L (8-16) 05/03/18 00:30 BUN 13 mg/dL (7-18) 05/03/18 00:30 Creatinine 0.8 mg/dL (0.55-1.3) 05/03/18 00:30 Creat Clearance w eGFR > 60 (>60) 05/03/18 00:30 Random Glucose 593 mg/dL (74-106) H* 05/03/18 00:30 Lactic Acid 2.6 mmol/L (0.4-2.0) H* 05/02/18 22:23 Calcium 9.1 mg/dL (8.5-10.1) 05/03/18 00:30 Total Bilirubin 0.4 mg/dL (0.2-1) 05/03/18 00:30 AST 6 U/L (15-37) L 05/03/18 00:30 ALT 13 U/L (13-61) 05/03/18 00:30 Alkaline Phosphatase 104 U/L (45-117) 05/03/18 00:30 LD Total Cancelled 05/02/18 22:23 Total Protein 7.5 g/dl (6.4-8.2) 05/03/18 00:30 Albumin 3.6 g/dl (3.4-5.0) 05/03/18 00:30 Lipase 507 U/L (73-393) H 05/03/18 00:30 Lipase still elevated. Glucose elevated 593, no AG. Will give IV insulin. Will admit for hyperglycemia and pancreatitis. <Clay Verde - Last Filed: 05/03/18 01:40>
[2018-05-02 22:37] LABS: BASO % 0.7 % (0-2.0); HEMATOCRIT 39.4 % (32.4-45.2); LYMPH % 48.8 % (8-40); MCH 31.4 pg (25.7-33.7); MCHC 35.5 g/dl (32.0-36.0); MEAN CELL VOLUME 88.5 fl (80-96); MEAN PLT VOLUME 8.8 fl (7.5-11.1); MONO % 6.4 % (3.8-10.2); NEUT % 43.1 % (42.8-82.8); PLATELET COUNT 203 K/MM3 (134-434); RBC 4.46 M/mm3 (3.60-5.2); RDW 12.4 % (11.6-15.6); WHITE BLOOD COUNT 8.5 K/mm3 (4.0-10.0)
[2018-05-02 22:40] LABS: URINE APPEARANCE CLEAR; URINE BILIRUBIN NEGATIVE (<2.0 mg/dL); URINE COLOR COLORLESS; URINE GLUCOSE (UA) 3+ (NEGATIVE); URINE KETONE NEGATIVE (NEGATIVE); URINE LEUK ESTERASE NEGATIVE (NEGATIVE); URINE NITRITE NEGATIVE (NEGATIVE); URINE PROTEIN NEGATIVE (NEGATIVE); URINE UROBILINOGEN NEGATIVE mg/dL (0.2-1.0)
[2018-05-02 23:05] LABS: HCG,QUALITATIVE URINE Negative
--- NOTE | 2018-05-02 23:58 | PDOC ---
*Physical Exam - Vital Signs Last Vital Signs Temp Pulse Resp BP Pulse Ox 98.4 F 66 20 103/63 100 05/02/18 19:36 05/02/18 19:36 05/02/18 19:36 05/02/18 19:36 05/02/18 19:36 - Physical Exam General Appearance: Yes: Nourished, Obese HEENT: positive: Normal Voice, Hearing Grossly Normal Neck: positive: Trachea midline, Supple Respiratory/Chest: positive: Lungs Clear, Normal Breath Sounds Cardiovascular: positive: S1, S2. negative: Edema, JVD, Murmur Integumentary: positive: Normal Color, Dry, Warm Neurologic: positive: Fully Oriented, Alert ED Treatment Course - LABORATORY CBC & Chemistry Diagram: 05/02/18 22:23 05/03/18 00:30 - ADDITIONAL ORDERS Additional order review: Laboratory Results 05/02/18 05/02/18 05/02/18 22:23 22:23 22:23 Sodium Cancelled Potassium Cancelled Chloride Cancelled Carbon Dioxide Cancelled Anion Gap Cancelled BUN Cancelled Creatinine Cancelled Creat Clearance w eGFR Cancelled Random Glucose Cancelled Lactic Acid 2.6 H* Calcium Cancelled Total Bilirubin Cancelled AST Cancelled ALT Cancelled Alkaline Phosphatase Cancelled LD Total Cancelled Total Protein Cancelled Albumin Cancelled Lipase Cancelled Urine Color Colorless Urine Appearance Clear Urine pH 5.0 Ur Specific Ballard 1.028 Urine Protein Negative Urine Glucose (UA) 3+ H Urine Ketones Negative Urine Blood Negative Urine Nitrite Negative Urine Bilirubin Negative Urine Urobilinogen Negative Ur Leukocyte Esterase Negative Urine HCG, Qual Negative 05/02/18 22:23 RBC 4.46 MCV 88.5 MCHC 35.5 RDW 12.4 MPV 8.8 Neutrophils % 43.1 D Lymphocytes % 48.8 H D Monocytes % 6.4 Eosinophils % 1.0 Basophils % 0.7 - Medications Given in the ED: ED Medications Discontinued Medications Generic Name Dose Route Start Last Admin Trade Name Freq PRN Reason Stop Dose Admin Sodium Chloride 1,000 mls @ 1,000 mls/hr 05/02/18 21:14 05/02/18 22:29 Normal Saline - IV 05/02/18 22:13 1,000 mls/hr ASDIR STA Administration Medical Decision Making - Medical Decision Making 05/02/18 23:58 Patient signed out by Dr. Heart (Resident) under the care of Dr. Verde (Attending) 27 year old with h/o poorly controlled NIDDM and pancreatitis presents to ED c/ o epigastric pain radiating to the back. VS unremarkable. Lactic 2.6 s/p 1 L CMP pending. Likely disposition is admission pending lipase. 05/03/18 01:33 Critical lab values reported: BS 593, K+ wnL Lipase 507 (previous lipase 1000's) Will give 8 units of insulin 2nd liter IV NS hanging Hospitalist microblogged for admission [facility] Resident (Dr. Lynch). Patient admitted to inpatient medicine service. Patient amenable to admission. *DC/Admit/Observation/Transfer Diagnosis at time of Disposition: Abdominal pain, Neck pain, Dyspnea - Referrals - Patient Instructions - Post Discharge Activity
[2018-05-03] MEDS ORDERED: ACETAMINOPHEN 1000 MG/100 ML VIAL (NON FORMULARY) IVPB ONE (00:30)
[2018-05-03 01:23] LABS: ALBUMIN 3.6 g/dl (3.4-5.0); ALK PHOS 104 U/L (45-117); ANION GAP 10 MMOL/L (8-16); BILIRUBIN,TOTAL 0.4 mg/dL (0.2-1); BLOOD UREA NITROGEN 13 mg/dL (7-18); CALCIUM 9.1 mg/dL (8.5-10.1); CHLORIDE 100 mmol/L (98-107); CO2 23 mmol/L (21-32); CREATININE 0.8 mg/dL (0.55-1.3); LIPASE 507 U/L (73-393); POTASSIUM 3.8 mmol/L (3.5-5.1); SGOT/AST 6 U/L (15-37); SGPT/ALT 13 U/L (13-61); SODIUM 134 mmol/L (136-145); TOT PROT 7.5 g/dl (6.4-8.2)
[2018-05-03 01:27] LABS: GLUCOSE,RANDOM 593 mg/dL (74-106)
[2018-05-03] MEDS ORDERED: ACETAMINOPHEN INJECTION 100 ML IVPB ONE (01:29)
[2018-05-03] MEDS ORDERED: INSULIN REGULAR HUMAN 100 UNITS/ML *VIAL SQ ONE (01:34)
[2018-05-03] MEDS ORDERED: INSULIN REGULAR HUMAN 100 UNITS/ML *VIAL ONE (03:16)
[2018-05-03 05:09] VITALS: BMI 34.1
[2018-05-03] MEDS ORDERED: ACETAMINOPHEN 325 MG TABLET (FP) PO PRN (09:30)
[2018-05-03] MEDS ORDERED: ALBUTEROL SO4 0.083% IH SOL 2.5 MG/3 ML VIAL.NEB. NEB PRN (09:32)
--- NOTE | 2018-05-03 09:40 | HP ---
Admitting History and Physical - Primary Care Physician PCP: Del Daigle - Admission Chief Complaint: Abdominal Pain. 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 Patient presented to ER with complaints of sharp epigastric pain not accompanied with nausea or vomiting, elevated blood sugar at home, and stabbing neck pain for 2 days. In ER labs show elevated lactic acid 2.6, elevated random glucose 593mg/dL, elevated lipase of 507 which has trended down from 1166 on 04/27/18. On examination patient complains of body aches and feeling weak, sharp mid chest pain radiating to R side of chest. Patient states that abdominal and neck pain has improved. 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 Pulmonary: Yes: Asthma Gastrointestinal: Yes: Diverticulosis, Pancreatitis (recurring abdominal pain hospitalizations with elevated lipases and normal amylases attributed to pancreatitis) Hepatobiliary: Yes: Other (fatty liver) ...LMP: 03/23/18 ...: No Psych: Yes: Anxiety, Bipolar Endocrine: Yes: Diabetes Mellitus (poorly controlled), Hypothyroidism - Past Surgical History Past Surgical History: Yes: Colonoscopy, Upper Endoscopy - Smoking History Smoking history: Never smoked Have you smoked in the past 12 months: No Aproximately how many cigarettes per day: 1 If you are a former smoker, when did you quit?: 2011 - Alcohol/Substance Use Hx Alcohol Use: Yes (patient states being a social drinker ) History of Substance Use: reports: None - Social History Usual Living Arrangement: Yes: With Parent ADL: Independent Occupation: unemployed History of Recent Travel: No Home Medications - Allergies Allergies/Adverse Reactions: Allergies Allergy/AdvReac Type Severity Reaction Status Date / Time mushroom Allergy Verified 05/03/18 03:45 No Known Drug Allergies Allergy Verified 05/03/18 03:45 SEAFOOD Allergy Severe ANAPHYLAXIS Uncoded 05/03/18 03:45 - Home Medications Home Medications: Ambulatory Orders Quetiapine Fumarate [Seroquel] 100 tab PO HS 02/17/17 Clonazepam 1 mg PO BID 10/31/17 Divalproex *ER* [Depakote *ER* -] 500 mg PO BID 10/31/17 Pnv No.95/Ferrous Fum/Folic AC [ Vitamin Tablet] 1 each PO DAILY Risperidone [Risperdal] 2 mg PO BID 10/31/17 Albuterol Sulfate Inhaler - [Ventolin Hfa Inhaler -] 2 inh PO Q4H PRN 02/17/18 Insulin Glargine,Hum.rec.anlog [Lantus Solostar PEN (NF)] 100 units SQ DAILY 06/02 Phenytoin Na Extended [Dilantin -] 100 mg PO BID #30 capsule 02/18/18 Family Disease History - Family Disease History Family Disease History: Diabetes: Father ( of pancreatitis, alcoholic), Heart Disease: Mother ([place] in her 30's), Other: Father Review of Systems - Review of Systems Constitutional: reports: Malaise, Weakness Eyes: reports: Blurred Vision HENT: reports: No Symptoms Neck: reports: Other (sharp pain) Cardiovascular: reports: Chest Pain Respiratory: reports: SOB Gastrointestinal: reports: Abdominal Pain Genitourinary: reports: No Symptoms Breasts: reports: No Symptoms Reported Musculoskeletal: reports: Muscle Weakness Integumentary: reports: No Symptoms Neurological: reports: No Symptoms Endocrine: reports: No Symptoms Hematology/Lymphatic: reports: No Symptoms Psychiatric: reports: No Symptoms Physical Examination Vital Signs: Vital Signs Temperature 97.9 F 05/03/18 04:53 Pulse Rate 78 05/03/18 04:53 Respiratory Rate 18 05/03/18 09:00 Blood Pressure 119/76 05/03/18 04:53 O2 Sat by Pulse Oximetry (%) 99 05/03/18 09:00 Constitutional: Yes: No Distress, Calm, Obese Eyes: Yes: Conjunctiva Clear HENT: Yes: Normocephalic Neck: Yes: Supple Cardiovascular: Yes: Regular Rate and Rhythm Respiratory: Yes: Regular, CTA Bilaterally Gastrointestinal: Yes: Normal Bowel Sounds, Soft, Tenderness (epigastric and RLQ ) Musculoskeletal: Yes: Muscle Weakness Extremities: Yes: WNL Edema: No Neurological: Yes: Alert, Oriented Psychiatric: Yes: Alert, Oriented Labs: CBC, BMP 05/02/18 22:23 05/03/18 00:30 Problem List - Problems (1) Abdominal pain Assessment/Plan: -GI consult placed -Abdominal US ordered -NPO Code(s): R10.9 - UNSPECIFIED ABDOMINAL PAIN (2) Dyspnea Assessment/Plan: -albuterol tx via neb PRN for SOB -pulmonary consult -CXR ordered Code(s): R06.00 - DYSPNEA, UNSPECIFIED (3) Neck pain Assessment/Plan: -pain management -Cervical spine xray Code(s): M54.2 - CERVICALGIA (4) Elevated lactic acid level Assessment/Plan: -repeat lactic acid to monitor for down trend -current LA 2.6 Code(s): R79.89 - OTHER SPECIFIED ABNORMAL FINDINGS OF BLOOD CHEMISTRY (5) Diabetes mellitus, insulin dependent (IDDM), uncontrolled Assessment/Plan: -BGM ACHS, ISS -endocrinology consult -HgA1c ordered Code(s): E10.65 - TYPE 1 DIABETES MELLITUS WITH HYPERGLYCEMIA Qualifiers: Glycemic state: with hyperglycemia Qualified Code(s): E10.65 - Type 1 diabetes mellitus with hyperglycemia (6) History of seizure Assessment/Plan: -continue with dilantin and depakote -neurology consult Code(s): Z87.898 - PERSONAL HISTORY OF OTHER SPECIFIED CONDITIONS (7) Chronic pancreatitis Assessment/Plan: -Lipase 507 -will monitor for down trend -GI consult placed -IVF -NPO Code(s): K86.1 - OTHER CHRONIC PANCREATITIS (8) Chest pain Assessment/Plan: -EKG ordered -troponin level ordered STAT -cardiology consult Code(s): R07.9 - CHEST PAIN, UNSPECIFIED Assessment/Plan see problem list dvt ppx
[2018-05-03] MEDS ORDERED: DIVALPROEX NA *ER* EXTEND REL 500 MG TABLET.SA (FP) PO SCH (10:00)
[2018-05-03] MEDS ORDERED: INSULIN SLIDING SCALE (NOVOLOG) 1 VIAL SQ SCH ×2 (11:00→22:13)
--- NOTE | 2018-05-03 11:15 | CONSULT ---
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 Patient notes she has been feeling increased shortness of breath. She reports epigastric pain that radiates to her low back and left flank. Patient states that the pain is constant, without any aggravating or alleviating factors. She also reports associated nausea, 5 episodes of non-bloody loose stool, and left-sided neck pain. Patient has a history of pancreatitis, and notes that her current symptoms feel similar to those episodes. She notes she was seen in the ED 5 days ago for a UTI, and is on 5/ day of Keflex. Patient confirms she is up to date on her flu shot. Consulted for seizure mgmt, patient reports seizure free for [address] Donaldson as outpatient, and no new seizure events prompting her admission. Neurologically remains stable. 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 Pulmonary: Yes: Asthma Gastrointestinal: Yes: Diverticulosis, Pancreatitis (recurring abdominal pain hospitalizations with elevated lipases and normal amylases attributed to pancreatitis) Hepatobiliary: Yes: Other (fatty liver) ...LMP: 03/23/18 ...: No Psych: Yes: Anxiety, Bipolar Endocrine: Yes: Diabetes Mellitus (poorly controlled), Hypothyroidism - Past Surgical History Past Surgical History: Yes: Colonoscopy, Upper Endoscopy - Smoking History Smoking history: Never smoked Have you smoked in the past 12 months: No Aproximately how many cigarettes per day: 1 If you are a former smoker, when did you quit?: 2011 - Alcohol/Substance Use Hx Alcohol Use: Yes (patient states being a social drinker ) History of Substance Use: reports: None - Social History Usual Living Arrangement: Yes: With Parent ADL: Independent Occupation: unemployed History of Recent Travel: No Home Medications Medication Instructions Recorded Quetiapine Fumarate [Seroquel] 100 tab PO HS 02/17/17 Clonazepam 1 mg PO BID 10/31/17 Divalproex *ER* [Depakote *ER* -] 500 mg PO BID 10/31/17 Pnv No.95/Ferrous Fum/Folic AC 1 each PO DAILY 10/31/17 [ Vitamin Tablet] Risperidone [Risperdal] 2 mg PO BID 10/31/17 Albuterol Sulfate Inhaler - 2 inh PO Q4H PRN 02/17/18 [Ventolin Hfa Inhaler -] Insulin Glargine,Hum.rec.anlog 100 units SQ DAILY 02/17/18 [Lantus Solostar PEN (NF)] Phenytoin Na Extended [Dilantin -] 100 mg PO BID #30 capsule 02/18/18 Review of Systems - Review of Systems Constitutional: reports: Malaise, Weakness Eyes: reports: Blurred Vision HENT: reports: No Symptoms Neck: reports: Other (sharp pain) Cardiovascular: reports: Chest Pain Respiratory: reports: SOB Gastrointestinal: reports: Abdominal Pain Genitourinary: reports: No Symptoms Breasts: reports: No Symptoms Reported Musculoskeletal: reports: Muscle Weakness Integumentary: reports: No Symptoms Neurological: reports: No Symptoms Endocrine: reports: No Symptoms Hematology/Lymphatic: reports: No Symptoms Psychiatric: reports: No Symptoms - Physicial Exam Vital Signs Temperature 97.9 F 05/03/18 04:53 Pulse Rate 78 05/03/18 04:53 Respiratory Rate 18 05/03/18 09:00 Blood Pressure 119/76 05/03/18 04:53 O2 Sat by Pulse Oximetry (%) 99 05/03/18 09:00 PE: GENERAL: Awake, alert, and fully oriented, in no acute distress HEAD: No signs of trauma EYES: PERRLA, EOMI, sclera anicteric, conjunctiva clear ENT: Auricles normal inspection, hearing grossly normal, nares patent. Moist mucosa NECK: Normal ROM, supple, no masses ABDOMEN: +Epigastric tenderness to palpation. Soft, nontender. No guarding, no rebound. No masses EXTREMITIES: Normal range of motion, no edema. No clubbing or cyanosis. No cords, erythema, or tenderness NEUROLOGICAL: Cranial nerves II through XII grossly intact. Normal speech, normal gait SKIN: Warm, Dry, normal turgor, no rashes or lesions noted. CBCD WBC 8.5 K/mm3 (4.0-10.0) 05/02/18 22:23 RBC 4.46 M/mm3 (3.60-5.2) 05/02/18 22: Hgb 14.0 GM/dL (10.7-15.3) 05/02/18 22: Hct 39.4 % (32.4-45.2) 05/02/18 22: MCV 88.5 fl (80-96) 05/02/18 22: MCHC 35.5 g/dl (32.0-36.0) 05/02/18: RDW 12.4 % (11.6-15.6) 05/02/18: Plt Count 203 K/MM3 (134-434) 05/02/18 22: MPV 8.8 fl (7.5-11.1) 05/02/18: CMP Sodium 134 mmol/L (136-145) L 05/03/18 00:30 Potassium 3.8 mmol/L (3.5-5.1) 05/03/18 00:30 Chloride 100 mmol/L (98-107) 05/03/18 00:30 Carbon Dioxide 23 mmol/L (21-32) 05/03/18 00:30 Anion Gap 10 MMOL/L (8-16) 05/03/18 00:30 BUN 13 mg/dL (7-18) 05/03/18 00:30 Creatinine 0.8 mg/dL (0.55-1.3) 05/03/18 00:30 Creat Clearance w eGFR > 60 (>60) 05/03/18 00:30 Random Glucose 593 mg/dL (74-106) H* 05/03/18 00:30 Calcium 9.1 mg/dL (8.5-10.1) 05/03/18 00:30 Total Bilirubin 0.4 mg/dL (0.2-1) 05/03/18 00:30 AST 6 U/L (15-37) L 05/03/18 00:30 ALT 13 U/L (13-61) 05/03/18 00:30 Alkaline Phosphatase 104 U/L (45-117) 05/03/18 00:30 Total Protein 7.5 g/dl (6.4-8.2) 05/03/18 00:30 Albumin 3.6 g/dl (3.4-5.0) 05/03/18 00:30 Plan/Assessment 27 year old female, with a significant PMH of CHF, IDDM, pancreatitis, diverticulosis, hypothyroidism, hypotension, seizures, asthma, recurring UTIs, 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 Patient notes she has been feeling increased shortness of breath. She reports epigastric pain that radiates to her low back and left flank. Patient states that the pain is constant, without any aggravating or alleviating factors. She also reports associated nausea, 5 episodes of non- bloody loose stool, and left-sided neck pain. Patient has a history of pancreatitis, and notes that her current symptoms feel similar to those episodes. She notes she was seen in the ED 5 days ago for a UTI, and is on 5/ day of Keflex. Patient confirms she is up to date on her flu shot. Consulted for seizure mgmt, patient reports seizure free for [address] Donaldson as outpatient, and no new seizure events prompting her admission. Neurologically remains stable. Continue outpatient medication at current doses. Conitnue medical mgmt and optimization.
--- NOTE | 2018-05-03 12:51 | EKG ---
Test Reason : Blood Pressure : / mmHG Vent. Rate : 057 BPM Atrial Rate : 057 BPM P-R Int : 182 ms QRS Dur : 094 ms QT Int : 432 ms P-R-T Axes : 053 050 041 degrees QTc Int : 420 ms SINUS BRADYCARDIA WHEN COMPARED WITH ECG OF 09-APR-2018 03:17, NO SIGNIFICANT CHANGE WAS FOUND Confirmed by ADRIAN NERI MD ([id number]) on 05/03/2018 12:51:36 PM Referred By: Confirmed By:ADRIAN NERI MD
[2018-05-03] MEDS: INSULIN SLIDING SCALE (NOVOLOG) 1 VIAL SQ SCH ×4 (12:52→23:15)
[2018-05-03] MEDS: SODIUM CHLORIDE 1,000 ML IV SCH (12:52)
[2018-05-03] MEDS: PHENYTOIN NA EXTENDED 100 MG CAPSULE (FP) PO SCH ×2 (12:53→21:19)
[2018-05-03] MEDS: risperiDONE 1 MG TABLET (FP) PO SCH ×2 (12:53→21:19)
[2018-05-03] MEDS: DIVALPROEX SODIUM 500 MG TABLET E.C. PO SCH ×2 (12:54→21:19)
[2018-05-03 14:01] LABS: BASO % 0.8 % (0-2.0); EOS % 0.9 % (0-4.5); HEMATOCRIT 38.7 % (32.4-45.2); HEMOGLOBIN 13.7 GM/dL (10.7-15.3); LYMPH % 42.7 % (8-40); MCH 31.1 pg (25.7-33.7); MCHC 35.3 g/dl (32.0-36.0); MEAN CELL VOLUME 88.1 fl (80-96); MEAN PLT VOLUME 8.5 fl (7.5-11.1); MONO % 6.3 % (3.8-10.2); NEUT % 49.3 % (42.8-82.8); PLATELET COUNT 187 K/MM3 (134-434); RBC 4.39 M/mm3 (3.60-5.2); RDW 12.3 % (11.6-15.6); WHITE BLOOD COUNT 7.1 K/mm3 (4.0-10.0)
[2018-05-03 14:34] LABS: ALBUMIN 3.2 g/dl (3.4-5.0); ALK PHOS 84 U/L (45-117); ANION GAP 6 MMOL/L (8-16); BILIRUBIN,TOTAL 0.4 mg/dL (0.2-1); BLOOD UREA NITROGEN 7 mg/dL (7-18); CALCIUM 8.1 mg/dL (8.5-10.1); CHLORIDE 106 mmol/L (98-107); CO2 25 mmol/L (21-32); CREATININE 0.5 mg/dL (0.55-1.3); POTASSIUM 3.9 mmol/L (3.5-5.1); SGOT/AST 9 U/L (15-37); SGPT/ALT 12 U/L (13-61); SODIUM 137 mmol/L (136-145); TOT PROT 6.6 g/dl (6.4-8.2)
[2018-05-03 14:41] LABS: GLUCOSE,RANDOM 307 mg/dL (74-106)
[2018-05-03] MEDS: clonazePAM 0.5 MG TABLET PO SCH ×2 (15:21→21:19)
[2018-05-03] MEDS: PANTOPRAZOLE 40 MG TABLET (FP) PO SCH (15:22)
--- NOTE | 2018-05-03 17:44 | CON.GI ---
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 Patient notes she has been feeling increased shortness of breath. She reports epigastric pain that radiates to her low back and left flank. Patient states that the pain is constant, without any aggravating or alleviating factors. She also reports associated nausea, 5 episodes of non-bloody loose stool, and left-sided neck pain. Patient has a history of pancreatitis, and notes that her current symptoms feel similar to those episodes. She notes she was seen in the ED 5 days ago for a UTI, and is on 5/7 day of Keflex. Patient confirms she is up to date on her flu shot. Consulted for seizure mgmt, patient reports seizure free for [address] Donaldson as outpatient, and no new seizure events prompting her admission. Neurologically remains stable. This morning the pain has resolved, no nausea and no vomiting, diarrhea, rectal bleeding. She is very hungry and wants to eat. Patient was seen by Dr Pang in the past but was dismissed from his practice because of non-compliance. She was seen and by Dr Boothe as service case last year and believed that her abdominal pain was not secondarty to pancreatitis. Non-of the previous imaging showed any evidence of pancreatitis. Labs were reviewed and lipase was minimally elevated to 585 with normal amylase. 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 Pulmonary: Yes: Asthma Gastrointestinal: Yes: Diverticulosis, Pancreatitis (recurring abdominal pain hospitalizations with elevated lipases and normal amylases attributed to pancreatitis) Hepatobiliary: Yes: Other (fatty liver) ...LMP: 03/23/18 ...: No Psych: Yes: Anxiety, Bipolar Endocrine: Yes: Diabetes Mellitus (poorly controlled), Hypothyroidism - Past Surgical History Past Surgical History: Yes: Colonoscopy, Upper Endoscopy - Alcohol/Substance Use Hx Alcohol Use: Yes (patient states being a social drinker ) History of Substance Use: reports: None - Smoking History Smoking history: Never smoked Have you smoked in the past 12 months: No Aproximately how many cigarettes per day: 1 If you are a former smoker, when did you quit?: 2012 - Social History Usual Living Arrangement: With Parent ADL: Independent Occupation: unemployed History of Recent Travel: No Home Medications - Allergies Allergies/Adverse Reactions: Allergies Allergy/AdvReac Type Severity Reaction Status Date / Time mushroom Allergy Verified 05/03/18 03:45 No Known Drug Allergies Allergy Verified 05/03/18 03:45 SEAFOOD Allergy Severe ANAPHYLAXIS Uncoded 05/03/18 03:45 - Home Medications Home Medications: Ambulatory Orders Quetiapine Fumarate [Seroquel] 100 tab PO HS 02/17/17 Clonazepam 1 mg PO BID 10/31/17 Divalproex *ER* [Depakote *ER* -] 500 mg PO BID 10/31/17 Pnv No.95/Ferrous Fum/Folic AC [ Vitamin Tablet] 1 each PO DAILY Risperidone [Risperdal] 2 mg PO BID 10/31/17 Albuterol Sulfate Inhaler - [Ventolin Hfa Inhaler -] 2 inh PO Q4H PRN 02/17/18 Insulin Glargine,Hum.rec.anlog [Lantus Solostar PEN (NF)] 100 units SQ DAILY 06/02 Phenytoin Na Extended [Dilantin -] 100 mg PO BID #30 capsule 02/18/18 Family Disease History - Family Disease History Family Disease History: Diabetes: Father ( of pancreatitis, alcoholic), Heart Disease: Mother ([place] in her 30's), Other: Father Physical Exam-GI Vital Signs: Vital Signs Temperature 98 F 05/03/18 11:22 Pulse Rate 62 05/03/18 11:22 Respiratory Rate 18 05/03/18 11:22 Blood Pressure 104/67 05/03/18 11:22 O2 Sat by Pulse Oximetry (%) 99 05/03/18 09:00 Constitutional: Yes: Well Nourished Eyes: Yes: Conjunctiva Clear HENT: Yes: Atraumatic Neck: Yes: Supple Cardiovascular: Yes: Regular Rate and Rhythm Respiratory: Yes: CTA Bilaterally ...Palpate: Yes: Soft. No: Firm/Rigid, Guarding, Hepatomegaly, Mass, Pulsatile Mass, Splenomegaly, Tenderness, Epigastium Labs: CBC, BMP 05/03/18 12:40 05/03/18 12:40 Problem List - Problems (1) Elevated lipase Assessment/Plan: secondary to previous DKA and uncontrolled Diabetes, doubt this secondary to pancreatitis R> advance diet repeat imaging if clinical symptoms recur Code(s): R74.8 - ABNORMAL LEVELS OF OTHER SERUM ENZYMES (2) Dyspepsia Assessment/Plan: R> Pantoprazole 40mg daily Code(s): R10.13 - EPIGASTRIC PAIN
--- NOTE | 2018-05-03 19:30 | CON.CARD ---
Consult Consult Specialty:: Cardiology Reason for Consultation:: History of CHF - History of Present Illness Chief Complaint: Presently resting comfortalby History of Present Illness: This is a 27 vyear old female with a PMH of IDDM, CHF, Seizure d/o, lipoma in corpus collosum, hx of recurrent UTIs, and a hx of recurrent pancreatitis. She presents now with epigastric pain. In terms of CHF, she had an echocardiogram on 10/31/17 Which showed normal LV function. Presently she does not have signs or symptoms of CHF. 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 Pulmonary: Yes: Asthma Gastrointestinal: Yes: Diverticulosis, Pancreatitis (recurring abdominal pain hospitalizations with elevated lipases and normal amylases attributed to pancreatitis) Hepatobiliary: Yes: Other (fatty liver) ...LMP: 03/23/18 ...: No Psych: Yes: Anxiety, Bipolar Endocrine: Yes: Diabetes Mellitus (poorly controlled), Hypothyroidism - Past Surgical History Past Surgical History: Yes: Colonoscopy, Upper Endoscopy - Alcohol/Substance Use Hx Alcohol Use: Yes (patient states being a social drinker ) History of Substance Use: reports: None - Smoking History Smoking history: Never smoked Have you smoked in the past 12 months: No Aproximately how many cigarettes per day: 1 If you are a former smoker, when did you quit?: 2011 - Social History Usual Living Arrangement: With Parent ADL: Independent Occupation: unemployed History of Recent Travel: No Home Medications - Allergies Allergies/Adverse Reactions: Allergies Allergy/AdvReac Type Severity Reaction Status Date / Time mushroom Allergy Verified 05/03/18 03:45 No Known Drug Allergies Allergy Verified 05/03/18 03:45 SEAFOOD Allergy Severe ANAPHYLAXIS Uncoded 05/03/18 03:45 - Home Medications Home Medications: Ambulatory Orders Quetiapine Fumarate [Seroquel] 100 tab PO HS 02/17/17 Clonazepam 1 mg PO BID 10/31/17 Divalproex *ER* [Depakote *ER* -] 500 mg PO BID 10/31/17 Pnv No.95/Ferrous Fum/Folic AC [ Vitamin Tablet] 1 each PO DAILY Risperidone [Risperdal] 2 mg PO BID 10/31/17 Albuterol Sulfate Inhaler - [Ventolin Hfa Inhaler -] 2 inh PO Q4H PRN 02/17/18 Insulin Glargine,Hum.rec.anlog [Lantus Solostar PEN (NF)] 100 units SQ DAILY 06/02 Phenytoin Na Extended [Dilantin -] 100 mg PO BID #30 capsule 02/18/18 Family Disease History - Family Disease History Family Disease History: Diabetes: Father ( of pancreatitis, alcoholic), Heart Disease: Mother ([place] in her 30's), Other: Father Vital Signs: Vital Signs Temperature 98 F 05/03/18 11:22 Pulse Rate 62 05/03/18 11:22 Respiratory Rate 18 05/03/18 11:22 Blood Pressure 104/67 05/03/18 11:22 O2 Sat by Pulse Oximetry (%) 99 05/03/18 09:00 Constitutional: Yes: Well Nourished HENT: Yes: WNL Respiratory: Yes: CTA Bilaterally Gastrointestinal: Yes: Normal Bowel Sounds Cardiovascular: Yes: Regular Rate and Rhythm (NL S1S2, No MRHG) Extremities: Yes: WNL Edema: No Neurological: Yes: Alert, Oriented - Other Data Labs, Other Data: CBC, BMP 05/03/18 12:40 05/03/18 12:40 Troponin, BNP 05/03/18 12:40 Troponin I < 0.02 Troponin, BNP 05/03/18 12:40 Troponin I < 0.02 Assessment/Plan 27 vyear old female with a PMH of IDDM, CHF, Seizure d/o, lipoma in corpus collosum, hx of recurrent UTIs, and a hx of recurrent pancreatitis. She presents now with epigastric pain. In terms of CHF, she had an echocardiogram on 10/31/17 Which showed normal LV function. Presently she does not have signs or symptoms of CHF. CXR without failure Echocardiogram on 10/31/17 Which showed normal LV function No present signs of CHF EKG without acute pathology No further cardiac evaluation required at this time
[2018-05-03] MEDS ORDERED: QUEtiapine FUMARATE 100 MG TABLET (FP) PO SCH (22:00)
[2018-05-04] MEDS: INSULIN SLIDING SCALE (NOVOLOG) 1 VIAL SQ SCH ×5 (01:47→17:07)
[2018-05-04 08:03] LABS: HEMATOCRIT 39.1 % (32.4-45.2); HEMOGLOBIN 13.9 GM/dL (10.7-15.3); MCH 31.5 pg (25.7-33.7); MCHC 35.6 g/dl (32.0-36.0); MEAN CELL VOLUME 88.4 fl (80-96); MEAN PLT VOLUME 8.5 fl (7.5-11.1); PLATELET COUNT 198 K/MM3 (134-434); RBC 4.43 M/mm3 (3.60-5.2); RDW 12.5 % (11.6-15.6); WHITE BLOOD COUNT 7.6 K/mm3 (4.0-10.0)
[2018-05-04 08:23] LABS: VALPROIC ACID DEPAKOTE DEPAKAN 25.5 ug/ml (50-100)
[2018-05-04 08:38] LABS: ALBUMIN 2.9 g/dl (3.4-5.0); ALK PHOS 72 U/L (45-117); ANION GAP 7 MMOL/L (8-16); BILIRUBIN,TOTAL 0.3 mg/dL (0.2-1); BLOOD UREA NITROGEN 7 mg/dL (7-18); CALCIUM 8.2 mg/dL (8.5-10.1); CHLORIDE 110 mmol/L (98-107); CHOLESTEROL 138 mg/dL (50-200); CO2 24 mmol/L (21-32); CREATININE 0.5 mg/dL (0.55-1.3); GLUCOSE,RANDOM 238 mg/dL (74-106); HDL CHOLESTEROL 30 mg/dL (40-60); LIPASE 230 U/L (73-393); POTASSIUM 3.5 mmol/L (3.5-5.1); SGPT/ALT 13 U/L (13-61); SODIUM 141 mmol/L (136-145); TOT PROT 6.5 g/dl (6.4-8.2); TRIGLYCERIDES 127 mg/dL (0-150)
[2018-05-04 09:12] LABS: SGOT/AST 4 U/L (15-37)
--- NOTE | 2018-05-04 11:31 | PN ---
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 Patient noted she has been feeling increased shortness of breath. She reported epigastric pain that radiated to her low back and left flank. Patient stated that the pain is constant, without any aggravating or alleviating factors. She also reported associated nausea, 5 episodes of non-bloody loose stool, and left-sided neck pain. Patient has a history of pancreatitis, and notes that her current symptoms feel similar to those episodes. She noted she was seen in the ED 5 days ago prior to this admission for a UTI, and was on 5/ day of Keflex. Patient confirmed she was up to date on her flu shot. Consulted for seizure mgmt, patient reports seizure free for [address] Donaldson as outpatient, and no new seizure events prompting her admission. Neurologically remains stable. Cervical xray ordered for neck pain, not completed at this time. No seizures overnight and neurologically stable. Calm and resting in bed watching tv this AM. Allergies Allergy/AdvReac Type Severity Reaction Status Date / Time mushroom Allergy Verified 05/03/18 03:45 No Known Drug Allergies Allergy Verified 05/03/18 03:45 SEAFOOD Allergy Severe ANAPHYLAXIS Uncoded 05/03/18 03:45 Active Medications Acetaminophen (Tylenol -) 650 mg PO Q6H PRN PRN Reason: FEVER Albuterol Sulfate (Ventolin 0.083% Nebulizer Soln -) 1 amp NEB Q4H PRN PRN Reason: SHORT OF BREATH/WHEEZING Clonazepam (Klonopin -) 1 mg PO BID [facility] Last Admin: 05/03/18 21:19 Dose: 1 mg Divalproex Sodium (Depakote -) 500 mg PO BID [facility] Last Admin: 05/03/18 21:19 Dose: 500 mg Insulin Aspart (Novolog Vial Sliding Scale -) 1 vial SQ Q4HPO [facility]; Protocol Last Admin: 05/04/18 05:42 Dose: 6 units Pantoprazole Sodium (Protonix -) 40 mg PO DAILY [facility] Last Admin: 05/03/18 15:22 Dose: 40 mg Phenytoin Sodium (Dilantin -) 100 mg PO BID [facility] Last Admin: 05/03/18 21:19 Dose: 100 mg Quetiapine Fumarate (Seroquel -) 100 mg PO HS [facility] Last Admin: 05/03/18 21:19 Dose: 100 mg Risperidone (Risperdal -) 2 mg PO BID [facility] Last Admin: 05/03/18 21:19 Dose: 2 mg - Physicial Exam Vital Signs Temperature 97.7 F 05/04/18 05:00 Pulse Rate 87 05/04/18 05:00 Respiratory Rate 16 05/04/18 05:00 Blood Pressure 132/71 05/04/18 05:00 O2 Sat by Pulse Oximetry (%) 99 05/03/18 21:00 PE: GENERAL: Awake, alert, and fully oriented, in no acute distress HEAD: No signs of trauma EYES: PERRLA, EOMI, sclera anicteric, conjunctiva clear ENT: Auricles normal inspection, hearing grossly normal, nares patent. Moist mucosa NECK: Normal ROM, supple, no masses ABDOMEN: +Epigastric tenderness to palpation. Soft, nontender. No guarding, no rebound. No masses EXTREMITIES: Normal range of motion, no edema. No clubbing or cyanosis. No cords, erythema, or tenderness NEUROLOGICAL: Cranial nerves II through XII grossly intact. Normal speech, normal gait SKIN: Warm, Dry, normal turgor, no rashes or lesions noted. CBCD WBC 7.6 K/mm3 (4.0-10.0) 05/04/18 06:20 RBC 4.43 M/mm3 (3.60-5.2) 05/04/18 06:20 Hgb 13.9 GM/dL (10.7-15.3) 05/04/18 06:20 Hct 39.1 % (32.4-45.2) 05/04/18 06:20 MCV 88.4 fl (80-96) 05/04/18 06:20 MCHC 35.6 g/dl (32.0-36.0) 05/04/18 06:20 RDW 12.5 % (11.6-15.6) 05/04/18 06:20 Plt Count 198 K/MM3 (134-434) 05/04/18 06:20 MPV 8.5 fl (7.5-11.1) 05/04/18 06:20 CMP Sodium 141 mmol/L (136-145) 05/04/18 06:20 Potassium 3.5 mmol/L (3.5-5.1) 05/04/18 06:20 Chloride 110 mmol/L (98-107) H 05/04/18 06:20 Carbon Dioxide 24 mmol/L (21-32) 05/04/18 06:20 Anion Gap 7 MMOL/L (8-16) L 05/04/18 06:20 BUN 7 mg/dL (7-18) 05/04/18 06:20 Creatinine 0.5 mg/dL (0.55-1.3) L 05/04/18 06:20 Creat Clearance w eGFR > 60 (>60) 05/04/18 06:20 Random Glucose 238 mg/dL (74-106) H 05/04/18 06:20 Calcium 8.2 mg/dL (8.5-10.1) L 05/04/18 06:20 Total Bilirubin 0.3 mg/dL (0.2-1) 05/04/18 06:20 AST 4 U/L (15-37) L 05/04/18 06:20 ALT 13 U/L (13-61) 05/04/18 06:20 Alkaline Phosphatase 72 U/L (45-117) 05/04/18 06:20 Total Protein 6.5 g/dl (6.4-8.2) 05/04/18 06:20 Albumin 2.9 g/dl (3.4-5.0) L 05/04/18 06:20 CARDIAC ENZYMES Troponin I < 0.02 ng/ml (0.00-0.05) 05/03/18 12:40 Plan/Assessment 27 year old female, with a significant PMH of CHF, IDDM, pancreatitis, diverticulosis, hypothyroidism, hypotension, seizures, asthma, recurring UTIs, 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 Patient noted she has been feeling increased shortness of breath. She reported epigastric pain that radiated to her low back and left flank. Patient stated that the pain is constant, without any aggravating or alleviating factors. She also reported associated nausea, 5 episodes of non- bloody loose stool, and left-sided neck pain. Patient has a history of pancreatitis, and notes that her current symptoms feel similar to those episodes. She noted she was seen in the ED 5 days ago prior to this admission for a UTI, and was on 5/7 day of Keflex. Patient confirmed she was up to date on her flu shot. Consulted for seizure mgmt, patient reports seizure free for [address] Donaldson as outpatient, and no new seizure events prompting her admission. Cervical xray ordered for neck pain, not completed at this time. Neurologically remains stable. Continue outpatient medication at current doses. Conitnue medical mgmt and optimization.
--- NOTE | 2018-05-04 11:49 | PN ---
Progress Note, Physician Chief Complaint: Hyperglycemia IDDM History of Present Illness: Previous notes and events reviewed awake and alert NAD denies complaints of chest pain, SOB - Current Medication List Current Medications: Active Medications Acetaminophen (Tylenol -) 650 mg PO Q6H PRN PRN Reason: FEVER Albuterol Sulfate (Ventolin 0.083% Nebulizer Soln -) 1 amp NEB Q4H PRN PRN Reason: SHORT OF BREATH/WHEEZING Clonazepam (Klonopin -) 1 mg PO BID [facility] Last Admin: 05/03/18 21:19 Dose: 1 mg Divalproex Sodium (Depakote -) 500 mg PO BID [facility] Last Admin: 05/03/18 21:19 Dose: 500 mg Insulin Aspart (Novolog Vial Sliding Scale -) 1 vial SQ Q4HPO [facility]; Protocol Last Admin: 05/04/18 05:42 Dose: 6 units Pantoprazole Sodium (Protonix -) 40 mg PO DAILY [facility] Last Admin: 05/03/18 15:22 Dose: 40 mg Phenytoin Sodium (Dilantin -) 100 mg PO BID [facility] Last Admin: 05/03/18 21:19 Dose: 100 mg Quetiapine Fumarate (Seroquel -) 100 mg PO HS [facility] Last Admin: 05/03/18 21:19 Dose: 100 mg Risperidone (Risperdal -) 2 mg PO BID [facility] Last Admin: 05/03/18 21:19 Dose: 2 mg - Objective Vital Signs: Vital Signs Temperature 97.7 F 05/04/18 05:00 Pulse Rate 87 05/04/18 05:00 Respiratory Rate 16 05/04/18 05:00 Blood Pressure 132/71 05/04/18 05:00 O2 Sat by Pulse Oximetry (%) 99 05/03/18 21:00 Constitutional: Yes: No Distress, Calm Eyes: Yes: Conjunctiva Clear HENT: Yes: Normocephalic Cardiovascular: Yes: Regular Rate and Rhythm Respiratory: Yes: Regular, CTA Bilaterally Gastrointestinal: Yes: Normal Bowel Sounds, Soft, Other (non-tender, non- distended) Musculoskeletal: Yes: WNL Extremities: Yes: WNL Edema: No Neurological: Yes: Alert, Oriented Psychiatric: Yes: Alert, Oriented Labs: CBC, BMP 05/04/18 06:20 05/04/18 06:20 Problem List - Problems (1) Abdominal pain Assessment/Plan: -GI recommendation appreciated -Abdominal US shows liver, spleen, kidneys, and partially visualized pancreas demonstrate no sonographic pathology -continue with pantoprazole Code(s): R10.9 - UNSPECIFIED ABDOMINAL PAIN (2) Dyspnea Assessment/Plan: -albuterol tx via neb PRN for SOB -CXR unremarkable -O2 via NC PRN for SOB -keep SpO2 >90% Code(s): R06.00 - DYSPNEA, UNSPECIFIED (3) Neck pain Assessment/Plan: -pain management -Cervical spine xray Code(s): M54.2 - CERVICALGIA (4) Elevated lactic acid level Assessment/Plan: -repeat LA 1.0 Code(s): R79.89 - OTHER SPECIFIED ABNORMAL FINDINGS OF BLOOD CHEMISTRY (5) Diabetes mellitus, insulin dependent (IDDM), uncontrolled Assessment/Plan: -BGM ACHS, ISS -endocrinology consult -HgA1c 11.4% Code(s): E10.65 - TYPE 1 DIABETES MELLITUS WITH HYPERGLYCEMIA Qualifiers: Glycemic state: with hyperglycemia Qualified Code(s): E10.65 - Type 1 diabetes mellitus with hyperglycemia (6) History of seizure Assessment/Plan: -continue with dilantin and depakote -neurology on board Code(s): Z87.898 - PERSONAL HISTORY OF OTHER SPECIFIED CONDITIONS (7) Chest pain Assessment/Plan: -currently resolved -EKG shows sinus jaz -troponin neg -cardioloy consult appreciated Code(s): R07.9 - CHEST PAIN, UNSPECIFIED (8) Elevated lipase Assessment/Plan: -lipase 230 -GI recommendation appreciated Code(s): R74.8 - ABNORMAL LEVELS OF OTHER SERUM ENZYMES
[2018-05-04] MEDS ORDERED: PT OWN MED DRAWER 7, Y5N ONE (11:52)
[2018-05-04] MEDS: PANTOPRAZOLE 40 MG TABLET (FP) PO SCH (11:53)
[2018-05-04] MEDS: clonazePAM 0.5 MG TABLET PO SCH (11:53)
[2018-05-04] MEDS: SODIUM CHLORIDE 1,000 ML IV SCH (11:54)
[2018-05-04] MEDS: risperiDONE 1 MG TABLET (FP) PO SCH (11:55)
[2018-05-04] MEDS: DIVALPROEX SODIUM 500 MG TABLET E.C. PO SCH (11:55)
[2018-05-04] MEDS: PHENYTOIN NA EXTENDED 100 MG CAPSULE (FP) PO SCH (11:56)
[2018-05-04 18:05] LABS: URINE APPEARANCE CLOUDY; URINE BILIRUBIN NEGATIVE (<2.0 mg/dL); URINE COLOR YELLOW; URINE GLUCOSE (UA) 3+ (NEGATIVE); URINE KETONE TRACE (NEGATIVE); URINE LEUK ESTERASE NEGATIVE (NEGATIVE); URINE NITRITE NEGATIVE (NEGATIVE); URINE PROTEIN NEGATIVE (NEGATIVE); URINE UROBILINOGEN NEGATIVE mg/dL (0.2-1.0)
[2018-05-04 18:15] LABS: EPI CELLS RARE /HPF (FEW); YEAST MANY
[2018-05-04 20:59] VITALS: BP 111/70; PULSE 96; TEMP 98
--- NOTE | 2018-05-04 21:21 | HOSP ---
Subjective - Review of Symptoms Events since last encounter: Paged by nurse as patient wanted to sign out AMA. Upon arrival, patient was already dressed up, saying she wants to leave because she has work tomorrow morning. She feels good and she was told she was going to be discharged. Explained to patient risks of leaving. Patient signed out AMA. Physical Examination Vital Signs: Vital Signs Temperature 98 F 05/04/18 20:58 Pulse Rate 96 H 05/04/18 20:58 Respiratory Rate 20 05/04/18 20:59 Blood Pressure 111/70 05/04/18 20:58 O2 Sat by Pulse Oximetry (%) 99 05/04/18 20:59 Labs: CBC, BMP 05/04/18 06:20 05/04/18 06:20 Visit type - Emergency Visit Emergency Visit: Yes ED Registration Date: 05/03/18 Care time: The patient presented to the Emergency Department on the above date and was hospitalized for further evaluation of their emergent condition. - New Patient This patient is new to me today: Yes Date on this admission: 05/05/18 - Critical Care Critical Care patient: No
--- NOTE | 2018-05-04 21:25 | CONSULT ---
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 Patient presented to ER with complaints of sharp epigastric pain not accompanied with nausea or vomiting, elevated blood sugar at home. In ER labs show elevated lactic acid 2.6, elevated random glucose 593mg/dL, elevated lipase of 507 which has trended down from 1166 on 04/27/18. 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 Pulmonary: Yes: Asthma Gastrointestinal: Yes: Diverticulosis, Pancreatitis (recurring abdominal pain hospitalizations with elevated lipases and normal amylases attributed to pancreatitis) Hepatobiliary: Yes: Other (fatty liver) ...LMP: 03/23/18 ...: No Psych: Yes: Anxiety, Bipolar Endocrine: Yes: Diabetes Mellitus (poorly controlled), Hypothyroidism - Past Surgical History Past Surgical History: Yes: Colonoscopy, Upper Endoscopy - Alcohol/Substance Use Hx Alcohol Use: No History of Substance Use: reports: None - Smoking History Smoking history: Never smoked Have you smoked in the past 12 months: No Aproximately how many cigarettes per day: 1 If you are a former smoker, when did you quit?: 2011 - Social History Usual Living Arrangement: With Parent ADL: Independent Occupation: unemployed History of Recent Travel: No Home Medications - Allergies Allergies/Adverse Reactions: Allergies Allergy/AdvReac Type Severity Reaction Status Date / Time mushroom Allergy Verified 05/03/18 03:45 No Known Drug Allergies Allergy Verified 05/03/18 03:45 SEAFOOD Allergy Severe ANAPHYLAXIS Uncoded 05/03/18 03:45 - Home Medications Home Medications: Ambulatory Orders Quetiapine Fumarate [Seroquel] 100 tab PO HS 02/17/17 Clonazepam 1 mg PO BID 10/31/17 Divalproex *ER* [Depakote *ER* -] 500 mg PO BID 10/31/17 Pnv No.95/Ferrous Fum/Folic AC [ Vitamin Tablet] 1 each PO DAILY Risperidone [Risperdal] 2 mg PO BID 10/31/17 Albuterol Sulfate Inhaler - [Ventolin Hfa Inhaler -] 2 inh PO Q4H PRN 02/17/18 Insulin Glargine,Hum.rec.anlog [Lantus Solostar PEN (NF)] 100 units SQ DAILY 06/02 Phenytoin Na Extended [Dilantin -] 100 mg PO BID #30 capsule 02/18/18 Family Disease History - Family Disease History Family Disease History: Diabetes: Father ( of pancreatitis, alcoholic), Heart Disease: Mother ([place] in her 30's), Other: Father Review of Systems - Review of Systems Constitutional: reports: Lethargy, Weakness Eyes: reports: No Symptoms HENT: reports: No Symptoms Neck: reports: No Symptoms Cardiovascular: reports: Shortness of Breath Respiratory: reports: Exercise Intolerance Gastrointestinal: reports: Abdominal Pain Genitourinary: reports: No Symptoms Breasts: reports: No Symptoms Reported Musculoskeletal: reports: Joint Swelling, Muscle Pain, Muscle Cramps, Muscle Weakness Endocrine: reports: Unexplained Weight Gain Physical Exam Vital Signs: Vital Signs Temperature 98 F 05/04/18 20:58 Pulse Rate 96 H 05/04/18 20:58 Respiratory Rate 20 05/04/18 20:59 Blood Pressure 111/70 05/04/18 20:58 O2 Sat by Pulse Oximetry (%) 99 05/04/18 20:59 Constitutional: Yes: Anxious Eyes: Yes: EOM Intact HENT: Yes: Normocephalic Neck: Yes: Trachea Midline Cardiovascular: Yes: Regular Rate and Rhythm Respiratory: Yes: CTA Bilaterally Gastrointestinal: Yes: Normal Bowel Sounds ...Rectal Exam: Yes: Deferred Renal/: Yes: WNL Extremities: Yes: WNL Neurological: Yes: Alert, Oriented Labs: CBC, BMP 05/04/18 06:20 05/04/18 06:20 Problem List - Problems (1) Abdominal pain Code(s): R10.9 - UNSPECIFIED ABDOMINAL PAIN (2) Chest pain Code(s): R07.9 - CHEST PAIN, UNSPECIFIED (3) Dyspnea Code(s): R06.00 - DYSPNEA, UNSPECIFIED (4) Elevated lipase Code(s): R74.8 - ABNORMAL LEVELS OF OTHER SERUM ENZYMES (5) Neck pain Code(s): M54.2 - CERVICALGIA (6) Cellulitis Code(s): L03.90 - CELLULITIS, UNSPECIFIED Qualifiers: Site of cellulitis: trunk Site of cellulitis of trunk: umbilicus Qualified Code(s): L03.316 - Cellulitis of umbilicus (7) Elevated lactic acid level Code(s): R79.89 - OTHER SPECIFIED ABNORMAL FINDINGS OF BLOOD CHEMISTRY Assessment/Plan Current Active Problems dm type 1 poorly compliant Abdominal pain (Acute) Chest pain (Acute) Dyspepsia (Acute) Dyspnea (Acute) Elevated lipase (Acute) Neck pain (Acute) Abnormal Lab Results 05/04/18 05/04/18 05/04/18 06:20 06:20 16:58 Chloride 110 H Anion Gap 7 L Creatinine 0.5 L Random Glucose 238 H Calcium 8.2 L AST 4 L Albumin 2.9 L HDL Cholesterol 30 L Urine Glucose (UA) 3+ H Urine Ketones Trace H Urine Blood 3+ H Phenytoin 1.0 L Valproic Acid 25.5 L Laboratory Results - last 24 hr 05/03/18 05/04/18 05/04/18 21:31 01:43 05:36 WBC RBC Hgb Hct MCV MCH MCHC RDW Plt Count MPV Sodium Potassium Chloride Carbon Dioxide Anion Gap BUN Creatinine Creat Clearance w eGFR POC Glucometer 287 298 250 Random Glucose Calcium Total Bilirubin AST ALT Alkaline Phosphatase Total Protein Albumin Triglycerides Cholesterol Total LDL Cholesterol HDL Cholesterol Lipase TSH Free T4 Urine Color Urine Appearance Urine pH Ur Specific [place] Urine Protein Urine Glucose (UA) Urine Ketones Urine Blood Urine Nitrite Urine Bilirubin Urine Urobilinogen Ur Leukocyte Esterase Urine WBC (Auto) Urine RBC (Auto) Ur Epithelial Cells Urine Yeast Phenytoin Valproic Acid 05/04/18 05/04/18 05/04/18 06:20 06:20 06:20 WBC 7.6 RBC 4.43 Hgb 13.9 Hct 39.1 MCV 88.4 MCH 31.5 MCHC 35.6 RDW 12.5 Plt Count 198 MPV 8.5 Sodium 141 Potassium 3.5 Chloride 110 H Carbon Dioxide 24 Anion Gap 7 L BUN 7 Creatinine 0.5 L Creat Clearance w eGFR > 60 POC Glucometer Random Glucose 238 H Calcium 8.2 L Total Bilirubin 0.3 AST 4 L ALT 13 Alkaline Phosphatase 72 Total Protein 6.5 Albumin 2.9 L Triglycerides 127 Cholesterol 138 Total LDL Cholesterol 98 HDL Cholesterol 30 L Lipase 230 TSH 1.73 Free T4 1.17 Urine Color Urine Appearance Urine pH Ur Specific [place] Urine Protein Urine Glucose (UA) Urine Ketones Urine Blood Urine Nitrite Urine Bilirubin Urine Urobilinogen Ur Leukocyte Esterase Urine WBC (Auto) Urine RBC (Auto) Ur Epithelial Cells Urine Yeast Phenytoin 1.0 L Valproic Acid 25.5 L 05/04/18 05/04/18 16:39 16:58 WBC RBC Hgb Hct MCV MCH MCHC RDW Plt Count MPV Sodium Potassium Chloride Carbon Dioxide Anion Gap BUN Creatinine Creat Clearance w eGFR POC Glucometer 285 Random Glucose Calcium Total Bilirubin AST ALT Alkaline Phosphatase Total Protein Albumin Triglycerides Cholesterol Total LDL Cholesterol HDL Cholesterol Lipase TSH Free T4 Urine Color Yellow Urine Appearance Cloudy Urine pH 5.0 Ur Specific [place] 1.014 Urine Protein Negative Urine Glucose (UA) 3+ H Urine Ketones Trace H Urine Blood 3+ H Urine Nitrite Negative Urine Bilirubin Negative Urine Urobilinogen Negative Ur Leukocyte Esterase Negative Urine WBC (Auto) 7 Urine RBC (Auto) 106 Ur Epithelial Cells Rare Urine Yeast Many Phenytoin Valproic Acid plan: levemir 50 units am bgm qid novologl scale ck hba1c
[2018-05-04] MEDS ORDERED: INSULIN (LEVEMIR) 100 UNITS/ML UNITS SQ SCH (22:00)
[2018-05-04] MEDS ORDERED: INSULIN SLIDING SCALE (NOVOLOG) 1 VIAL SQ SCH (22:15)
[2018-05-05] MEDS ORDERED: INSULIN (LEVEMIR) 100 UNITS/ML UNITS SQ SCH ×2 (07:00)
== END 2018-05-04 21:45 | disposition left against medical advice (07) ==
LOC: JER 19:18 → JERBED 05-03 02:07 → J7W 05-03 04:52
PROVIDERS: ADMIT Internal Medicine; ATTEND Family Medicine
PROC: 3E0337Z Introduction of Electrolytic and Water Balance Substance into Peripheral Vein, Percutaneous Approach (ICD-10-PCS; principal; 2018-05-03)
PROC: 3E033NZ Introduction of Analgesics, Hypnotics, Sedatives into Peripheral Vein, Percutaneous Approach (ICD-10-PCS; 2018-05-03)
PROC: 3E013VG Introduction of Insulin into Subcutaneous Tissue, Percutaneous Approach (ICD-10-PCS; 2018-05-03)
DX: R10.13 Epigastric pain (principal); M54.2 Cervicalgia; R06.00 Dyspnea, unspecified; E11.65 Type 2 diabetes mellitus with hyperglycemia; R79.89 Other specified abnormal findings of blood chemistry; G40.909 Epilepsy, unspecified, not intractable, without status epilepticus; K86.1 Other chronic pancreatitis; R07.9 Chest pain, unspecified; D17.9 Benign lipomatous neoplasm, unspecified; J45.909 Unspecified asthma, uncomplicated; E03.9 Hypothyroidism, unspecified; R74.8 Abnormal levels of other serum enzymes; L03.316 Cellulitis of umbilicus
CPT/HCPCS: 36415; 71045-TC-FY; 76700-TC; 80053; 80061; 80164; 80185; 81003; 81015; 82962; 83036; 83605; 83690; 83721; 84439; 84443; 84484; 84702; 84703; 85025; 85027; 87086; 87804; 93005; 93010; 99282-25; G0378; J0131; J2794; J7030

== ENCOUNTER 2018-05-10 15:40 | Emergency (ER) | payer OTHER ==
[2018-05-10 15:49] VITALS: BP 104/60; PULSE 108; TEMP 98.3; BMI 34.0
[2018-05-10 17:49] LABS: BASO % 0.8 % (0-2.0); EOS % 0.8 % (0-4.5); HEMATOCRIT 39.8 % (32.4-45.2); HEMOGLOBIN 14.1 GM/dL (10.7-15.3); LYMPH % 35.9 % (8-40); MCH 31.6 pg (25.7-33.7); MCHC 35.5 g/dl (32.0-36.0); MEAN CELL VOLUME 88.9 fl (80-96); MEAN PLT VOLUME 8.5 fl (7.5-11.1); MONO % 4.4 % (3.8-10.2); NEUT % 58.1 % (42.8-82.8); PLATELET COUNT 241 K/MM3 (134-434); RBC 4.48 M/mm3 (3.60-5.2); RDW 12.5 % (11.6-15.6)
[2018-05-10 18:19] LABS: URINE APPEARANCE CLEAR; URINE BILIRUBIN NEGATIVE (<2.0 mg/dL); URINE COLOR LTYELLOW; URINE GLUCOSE (UA) 3+ (NEGATIVE); URINE KETONE TRACE (NEGATIVE); URINE LEUK ESTERASE 1+ (NEGATIVE); URINE NITRITE NEGATIVE (NEGATIVE); URINE PROTEIN NEGATIVE (NEGATIVE); URINE UROBILINOGEN NEGATIVE mg/dL (0.2-1.0)
[2018-05-10 18:22] LABS: HCG,QUALITATIVE URINE Negative
[2018-05-10 18:26] LABS: EPI CELLS RARE /HPF (FEW)
[2018-05-10 18:36] LABS: ALBUMIN 3.4 g/dl (3.4-5.0); ANION GAP 7 MMOL/L (8-16); BILIRUBIN,TOTAL 0.3 mg/dL (0.2-1); BLOOD UREA NITROGEN 13 mg/dL (7-18); CHLORIDE 99 mmol/L (98-107); CO2 26 mmol/L (21-32); CREATININE 0.7 mg/dL (0.55-1.3); LIPASE 603 U/L (73-393); MAGNESIUM 2.1 mg/dL (1.8-2.4); POTASSIUM 4.3 mmol/L (3.5-5.1); SGOT/AST 4 U/L (15-37); SGPT/ALT 15 U/L (13-61); SODIUM 133 mmol/L (136-145); TOT PROT 7.6 g/dl (6.4-8.2)
[2018-05-10 18:37] LABS: ALK PHOS 102 U/L (45-117)
[2018-05-10 18:39] LABS: GLUCOSE,RANDOM 451 mg/dL (74-106)
[2018-05-10] MEDS ORDERED: SODIUM CHLORIDE 1,000 ML IV STA ×2 (18:39→19:04)
--- NOTE | 2018-05-10 18:49 | PDOC ---
History of Present Illness - General Chief Complaint: Pain Stated Complaint: ABD PAIN Time Seen by Provider: 05/10/18 16:54 History Source: Patient Exam Limitations: No Limitations - History of Present Illness Travel History: No Initial Comments: 05/10/18 18:03 27-year-old female with history of insulin-dependent diabetes seizures, and pancreatitis presents to the ED with complaints of epigastric cramping associate mild nausea over the past 3 days. Patient denies fever, chills and states her glucose this morning was 250. Patient denies headache, urinary complaints, bowel complaints, rash, chest pain or shortness of breath. Timing/Duration: reports: intermittent Quality: reports: moderate, cramping Abdominal Pain Onset Location: reports: epigastric Pain Radiation: reports: no radiation Activities at Onset: reports: none Aggravating Factors: improves with: None Alleviating Factors: improves with: None Past History - Travel Traveled outside of the country in the last 30 days: No Close contact w/someone who was outside of country & ill: No - Past Medical History Allergies/Adverse Reactions: Allergies Allergy/AdvReac Type Severity Reaction Status Date / Time mushroom Allergy Verified 05/10/18 15:48 No Known Drug Allergies Allergy Verified 05/10/18 15:48 SEAFOOD Allergy Severe ANAPHYLAXIS Uncoded 05/10/18 15:48 Home Medications: Ambulatory Orders Quetiapine Fumarate [Seroquel] 100 tab PO HS 02/17/17 Clonazepam 1 mg PO BID 10/31/17 Divalproex *ER* [Depakote *ER* -] 500 mg PO BID 10/31/17 Pnv No.95/Ferrous Fum/Folic AC [ Vitamin Tablet] 1 each PO DAILY Risperidone [Risperdal] 2 mg PO BID 10/31/17 Albuterol Sulfate Inhaler - [Ventolin Hfa Inhaler -] 2 inh PO Q4H PRN 02/17/18 Insulin Glargine,Hum.rec.anlog [Lantus Solostar PEN (NF)] 100 units SQ DAILY 06/02 Phenytoin Na Extended [Dilantin -] 100 mg PO BID #30 capsule 02/18/18 Insulin Lispro [Humalog] 60 unit SQ BID 05/10/18 Anemia: No Asthma: Yes Cancer: No Cardiac Disorders: Yes (RAPID HEARTBEAT HX) CVA: No COPD: No CHF: Yes Dementia: No Diabetes: (Yes; IDDM) GI Disorders: Yes (PANCREATITIS, DIVERTICULOSIS) Disorders: (YES; FREQUENT UTI'S) HTN: (LOW BP) Hypercholesterolemia: No Liver Disease: No Psychiatric Problems: Yes (anxiety, bipolar) Seizures: Yes Thyroid Disease: (Yes; HYPOTHYROIDISM, HYPOTENSION) - Surgical History Abdominal Surgery: No Appendectomy: No Cardiac Surgery: No Cholecystectomy: No Lung Surgery: No Neurologic Surgery: No Orthopedic Surgery: No - Family Disease History Family Disease History: Heart Disease: Grandparents - Reproductive History Is Patient Now?: No (#): 1 Para: 0 Cervical CA: No Dysfunctional Uterine Bleeding: No Ectopic : No Endometrial CA: No Polycystic Ovaries: No Therapeutic (s) & number: No Tubal Ligation: No Spontaneous : 1 - Immunization History Immunization Up to Date: Yes - Suicide/Smoking/Psychosocial Hx Smoking Status: Yes Smoking History: Never smoked Have you smoked in the past 12 months: No Number of Cigarettes Smoked Daily: 1 If you are a former smoker, when did you quit?: 2011 'Breaking Loose' booklet given: 03/11/12 Hx Alcohol Use: No Drug/Substance Use Hx: No Substance Use Type: None Hx Substance Use Treatment: No Patient Lives Alone: No Lives with/in: parents Abd/GI Specific PMHX - Complaint Specific PMHX Pancreatitis: Yes Review of Systems - Review of Systems Able to Perform ROS?: No Is the patient limited Hebrew proficient: No Constitutional: No: Symptoms Reported HEENTM: No: Symptoms Reported Respiratory: No: Symptoms reported Cardiac (ROS): No: Symptoms Reported ABD/GI: Yes: Symptoms Reported, Nausea, Poor Fluid Intake, Abdominal cramping. No: Poor Appetite : No: Symptoms Reported Musculoskeletal: No: Symptoms Reported Integumentary: No: Symptoms Reported Neurological: No: Symptoms reported Endocrine: No: Symptoms Reported Hematologic/Lymphatic: No: Symptoms Reported *Physical Exam - Vital Signs Last Vital Signs Temp Pulse Resp BP Pulse Ox 98.3 F 108 H 20 104/60 100 05/10/18 15:46 05/10/18 15:46 05/10/18 15:46 05/10/18 15:46 05/10/18 15:46 - Physical Exam General Appearance: Yes: Nourished, Appropriately Dressed. No: Apparent Distress HEENT: positive: EOMI, MARISELA, Pharynx Normal Neck: positive: Supple Respiratory/Chest: positive: Lungs Clear, Normal Breath Sounds. negative: Respiratory Distress, Accessory Muscle Use Cardiovascular: positive: Regular Rhythm, Tachycardia. negative: Murmur Gastrointestinal/Abdominal: positive: Normal Bowel Sounds, Soft. negative: Distended, Guarding, Rebound, Tenderness Musculoskeletal: negative: CVA Tenderness Extremity: negative: Normal Capillary Refill, Pedal Edema Integumentary: positive: Normal Color, Warm, Moist Neurologic: positive: Motor Strength 5/5 (ambulatory) Moderate Sedation - Procedure Monitoring Vital Signs: Procedure Monitoring Vital Signs Temperature 98.3 F 05/10/18 15:46 Pulse Rate 108 H 05/10/18 15:46 Respiratory Rate 20 05/10/18 15:46 Blood Pressure 104/60 05/10/18 15:46 O2 Sat by Pulse Oximetry (%) 100 05/10/18 15:46 ED Treatment Course - LABORATORY CBC & Chemistry Diagram: 05/10/18 17:40 05/10/18 17:40 - ADDITIONAL ORDERS Additional order review: Laboratory Results 05/10/18 05/10/18 18:01 17:40 Sodium 133 L Potassium 4.3 Chloride 99 Carbon Dioxide 26 Anion Gap 7 L BUN 13 Creatinine 0.7 Creat Clearance w eGFR > 60 Random Glucose 451 H* Calcium 9.0 Magnesium 2.1 Total Bilirubin 0.3 AST 4 L ALT 15 Alkaline Phosphatase 102 Total Protein 7.6 Albumin 3.4 Lipase 603 H Urine Color Ltyellow Urine Appearance Clear Urine pH 6.0 Ur Specific [place] 1.035 Urine Protein Negative Urine Glucose (UA) 3+ H Urine Ketones Trace H Urine Blood 2+ H Urine Nitrite Negative Urine Bilirubin Negative Urine Urobilinogen Negative Ur Leukocyte Esterase 1+ H Urine WBC (Auto) 2 Urine RBC (Auto) 9 Ur Epithelial Cells Rare Urine HCG, Qual Negative 05/10/18 17:40 RBC 4.48 MCV 88.9 MCHC 35.5 RDW 12.5 MPV 8.5 Neutrophils % 58.1 Lymphocytes % 35.9 Monocytes % 4.4 Eosinophils % 0.8 Basophils % 0.8 Medical Decision Making - Medical Decision Making 05/10/18 18:05 Complaint: Upper abdominal cramping associated nausea and poor fluid intake. Patient is diabetic with history of pancreatitis recent admission one week ago for the same. Exam: Patient slightly tachycardic. Patient no abdominal tenderness on exam. Plan: Labs, urine, IV access and will consider further workup once results are reviewed. 05/10/18 18:56 Laboratory Tests 05/10/18 05/10/18 05/10/18 17:40 17:40 18:01 WBC 10.0 Hgb 14.1 Hct 39.8 Absolute Neuts (auto) 5.8 Sodium 133 L Potassium 4.3 Chloride 99 Carbon Dioxide 26 Anion Gap 7 L BUN 13 Creatinine 0.7 Random Glucose 451 H* Calcium 9.0 Magnesium 2.1 Total Bilirubin 0.3 AST 4 L ALT 15 Alkaline Phosphatase 102 Total Protein 7.6 Albumin 3.4 Lipase 603 H Urine Protein Negative Urine Glucose (UA) 3+ H Urine Ketones Trace H Urine Blood 2+ H Urine Nitrite Negative Urine Bilirubin Negative Ur Leukocyte Esterase 1+ H Urine WBC (Auto) 2 Urine RBC (Auto) 9 Urine HCG, Qual Negative Acetone, Qual Pending Patient given 1 L normal saline and will check fingerstick/glucose reading in 30 minutes
[2018-05-10 19:08] LABS: ACETONE SERUM TRACE (NEGATIVE)
--- NOTE | 2018-05-10 20:27 | PDOC ---
*Physical Exam - Vital Signs Last Vital Signs Temp Pulse Resp BP Pulse Ox 98.3 F 108 H 20 104/60 100 05/10/18 15:46 05/10/18 15:46 05/10/18 15:46 05/10/18 15:46 05/10/18 15:46 ED Treatment Course - LABORATORY CBC & Chemistry Diagram: 05/10/18 17:40 05/10/18 17:40 - ADDITIONAL ORDERS Additional order review: Laboratory Results 05/10/18 05/10/18 18:01 17:40 Sodium 133 L Potassium 4.3 Chloride 99 Carbon Dioxide 26 Anion Gap 7 L BUN 13 Creatinine 0.7 Creat Clearance w eGFR > 60 Random Glucose 451 H* Calcium 9.0 Magnesium 2.1 Total Bilirubin 0.3 AST 4 L ALT 15 Alkaline Phosphatase 102 Total Protein 7.6 Albumin 3.4 Lipase 603 H Urine Color Ltyellow Urine Appearance Clear Urine pH 6.0 Ur Specific [place] 1.035 Urine Protein Negative Urine Glucose (UA) 3+ H Urine Ketones Trace H Urine Blood 2+ H Urine Nitrite Negative Urine Bilirubin Negative Urine Urobilinogen Negative Ur Leukocyte Esterase 1+ H Urine WBC (Auto) 2 Urine RBC (Auto) 9 Ur Epithelial Cells Rare Urine HCG, Qual Negative Acetone, Qual Trace H 05/10/18 17:40 RBC 4.48 MCV 88.9 MCHC 35.5 RDW 12.5 MPV 8.5 Neutrophils % 58.1 Lymphocytes % 35.9 Monocytes % 4.4 Eosinophils % 0.8 Basophils % 0.8 - Medications Given in the ED: ED Medications Discontinued Medications Generic Name Dose Route Start Last Admin Trade Name Freq PRN Reason Stop Dose Admin Sodium Chloride 1,000 mls @ 1,000 mls/hr 05/10/18 18:39 05/10/18 19:08 Normal Saline - IV 05/10/18 19:38 1,000 mls/hr ASDIR STA Administration Sodium Chloride 1,000 mls @ 1,000 mls/hr 05/10/18 19:04 05/10/18 19:35 Normal Saline - IV 05/10/18 20:03 1,000 mls/hr ASDIR STA Administration Medical Decision Making - Medical Decision Making Patient was signed out to me by BISHNU Mcclendon Patient was pending completion of IVF and then rechecking her FS However, patient was later no where to be found Nurse had called patient who told her she had left; IV was removed before she left 05/10/18 20:26 *DC/Admit/Observation/Transfer Diagnosis at time of Disposition: Hyperglycemia - Discharge Dispostion Disposition: ELOPED - Referrals - Patient Instructions - Post Discharge Activity
== END 2018-05-10 20:16 | disposition left against medical advice (07) ==
LOC: JER 15:40
PROC: 3E0337Z Introduction of Electrolytic and Water Balance Substance into Peripheral Vein, Percutaneous Approach (ICD-10-PCS; principal; 2018-05-10)
DX: E10.65 Type 1 diabetes mellitus with hyperglycemia (principal); Z79.4 Long term (current) use of insulin; I95.9 Hypotension, unspecified; E03.9 Hypothyroidism, unspecified; K86.1 Other chronic pancreatitis; F41.8 Other specified anxiety disorders; F32.9 Major depressive disorder, single episode, unspecified
CPT/HCPCS: 36415; 80053; 81003; 81015; 82009; 83690; 83735; 84703; 85025; 96360; 96361; 99282-25; J7030

== ENCOUNTER 2018-05-12 20:19 | Emergency (ER) | payer OTHER ==
[2018-05-12 20:26] VITALS: BP 108/65; PULSE 82; TEMP 98.2; BMI 34.0
--- NOTE | 2018-05-12 20:26 | PDOC ---
Rapid Medical Evaluation Time Seen by Provider: 05/12/18 20:23 Medical Evaluation: Allergies Allergy/AdvReac Type Severity Reaction Status Date / Time mushroom Allergy Verified 05/10/18 15:48 No Known Drug Allergies Allergy Verified 05/10/18 15:48 SEAFOOD Allergy Severe ANAPHYLAXIS Uncoded 05/10/18 15:48 05/12/18 20:23 I have performed a brief in-person evaluation of this patient. The patient presents with a chief complaint of: vomiting x 4 "blood", epigastric pain with nausea and also reports pain in the back of head. States dizziness. Pertinent physical exam findings: NAD HEENT: PERRL, normocephalic even and unlabored breathing I have ordered the following: urine preg, labs iv access, ivf The patient will proceed to the ED for further evaluation. Discharge Disposition - Diagnosis Abdominal pain, Vomiting - Referrals - Patient Instructions - Post Discharge Activity
[2018-05-12] MEDS ORDERED: ONDANSETRON *ODT* 4 MG TABLET SL ONE (20:28)
[2018-05-12] MEDS ORDERED: ONDANSETRON *ODT* 4 MG TABLET ONE (20:39)
[2018-05-12 21:30] LABS: BASO % 0.9 % (0-2.0); EOS % 0.8 % (0-4.5); HEMATOCRIT 40.3 % (32.4-45.2); HEMOGLOBIN 14.3 GM/dL (10.7-15.3); LYMPH % 42.4 % (8-40); MCH 31.4 pg (25.7-33.7); MCHC 35.4 g/dl (32.0-36.0); MEAN CELL VOLUME 88.7 fl (80-96); MEAN PLT VOLUME 8.6 fl (7.5-11.1); MONO % 5.4 % (3.8-10.2); NEUT % 50.5 % (42.8-82.8); PLATELET COUNT 231 K/MM3 (134-434); RBC 4.55 M/mm3 (3.60-5.2); RDW 12.4 % (11.6-15.6); WHITE BLOOD COUNT 7.9 K/mm3 (4.0-10.0)
[2018-05-12 21:49] LABS: BLOOD UREA NITROGEN 15 mg/dL (7-18); CREATININE 0.6 mg/dL (0.55-1.3); SODIUM 137 mmol/L (136-145)
[2018-05-12 21:50] LABS: ALBUMIN 3.6 g/dl (3.4-5.0); ALK PHOS 97 U/L (45-117); ANION GAP 8 MMOL/L (8-16); BILIRUBIN,TOTAL 0.3 mg/dL (0.2-1); CALCIUM 9.2 mg/dL (8.5-10.1); CHLORIDE 102 mmol/L (98-107); CO2 27 mmol/L (21-32); SGOT/AST 9 U/L (15-37); SGPT/ALT 15 U/L (13-61); TOT PROT 7.6 g/dl (6.4-8.2)
[2018-05-12 22:04] LABS: GLUCOSE,RANDOM 316 mg/dL (74-106)
== END 2018-05-12 22:28 | disposition left against medical advice (07) ==
LOC: JER 20:19
DX: R11.2 Nausea with vomiting, unspecified (principal); R10.13 Epigastric pain
CPT/HCPCS: 36415; 80053; 85025; 99281-25; Q0162

== ENCOUNTER 2018-05-23 16:51 | Emergency (ER) | payer OTHER ==
[2018-05-23 17:13] VITALS: BP 126/74; PULSE 82; TEMP 98.2; BMI 34.0
--- NOTE | 2018-05-23 17:13 | PDOC ---
History of Present Illness - General Chief Complaint: Pain Stated Complaint: LIU REMOVAL Time Seen by Provider: 05/23/18 17:11 History Source: Patient - History of Present Illness Timing/Duration: other Past History - Past Medical History Allergies/Adverse Reactions: Allergies Allergy/AdvReac Type Severity Reaction Status Date / Time mushroom Allergy Verified 05/23/18 17:43 No Known Drug Allergies Allergy Verified 05/23/18 17:43 SEAFOOD Allergy Severe ANAPHYLAXIS Uncoded 05/23/18 17:43 Home Medications: Ambulatory Orders Quetiapine Fumarate [Seroquel] 100 tab PO HS 02/17/17 Clonazepam 1 mg PO BID 10/31/17 Divalproex *ER* [Depakote *ER* -] 500 mg PO BID 10/31/17 Pnv No.95/Ferrous Fum/Folic AC [ Vitamin Tablet] 1 each PO DAILY Risperidone [Risperdal] 2 mg PO BID 10/31/17 Albuterol Sulfate Inhaler - [Ventolin Hfa Inhaler -] 2 inh PO Q4H PRN 02/17/18 Insulin Glargine,Hum.rec.anlog [Lantus Solostar PEN (NF)] 100 units SQ DAILY 06/02 Phenytoin Na Extended [Dilantin -] 100 mg PO BID #30 capsule 02/18/18 Insulin Lispro [Humalog] 60 unit SQ BID 05/10/18 Anemia: No Asthma: Yes Cancer: No Cardiac Disorders: Yes (RAPID HEARTBEAT HX) CVA: No COPD: No CHF: Yes Dementia: No Diabetes: (Yes; IDDM) GI Disorders: Yes (PANCREATITIS, DIVERTICULOSIS) Disorders: (YES; FREQUENT UTI'S) HTN: (LOW BP) Hypercholesterolemia: No Liver Disease: No Psychiatric Problems: Yes (anxiety, bipolar) Seizures: Yes Thyroid Disease: (Yes; HYPOTHYROIDISM, HYPOTENSION) - Surgical History Abdominal Surgery: No Appendectomy: No Cardiac Surgery: No Cholecystectomy: No Lung Surgery: No Neurologic Surgery: No Orthopedic Surgery: No - Family Disease History Family Disease History: Heart Disease: Grandparents - Reproductive History (#): 1 Para: 0 Cervical CA: No Dysfunctional Uterine Bleeding: No Ectopic : No Endometrial CA: No Polycystic Ovaries: No Therapeutic (s) & number: No Tubal Ligation: No Spontaneous : 1 - Immunization History Immunization Up to Date: Yes - Suicide/Smoking/Psychosocial Hx Smoking Status: Yes Smoking History: Never smoked Have you smoked in the past 12 months: No Number of Cigarettes Smoked Daily: 1 If you are a former smoker, when did you quit?: 2011 Information on smoking cessation initiated: No 'Breaking Loose' booklet given: 03/11/12 Hx Alcohol Use: No Drug/Substance Use Hx: No Substance Use Type: None Hx Substance Use Treatment: No Review of Systems - Review of Systems Constitutional: No: Chills, Fever *Physical Exam - Vital Signs Last Vital Signs Temp Pulse Resp BP Pulse Ox 98.2 F 82 16 126/74 97 05/23/18 17:11 05/23/18 17:11 05/23/18 17:11 05/23/18 17:11 05/23/18 17:11 - Physical Exam General Appearance: Yes: Appropriately Dressed. No: Apparent Distress HEENT: positive: Normal Voice, Other (lip stud in place to R lower lip, +ttp, no swelling/erythema or active drainage) Neck: positive: Supple Respiratory/Chest: negative: Respiratory Distress Integumentary: positive: Dry, Warm Neurologic: positive: Fully Oriented, Alert, Normal Mood/Affect Moderate Sedation - Procedure Monitoring Vital Signs: Procedure Monitoring Vital Signs Temperature 98.2 F 05/23/18 17:11 Pulse Rate 82 05/23/18 17:11 Respiratory Rate 16 05/23/18 17:11 Blood Pressure 126/74 05/23/18 17:11 O2 Sat by Pulse Oximetry (%) 97 05/23/18 17:11 Medical Decision Making - Medical Decision Making 05/23/18 17:13 27-year-old female, history of hypertension, IDDM, chronic pancreatitis and seizures, here with possible infected lip piercing. Patient states she had a lip stud placed in her right lower lip 3 days ago and has had worsening pain since. No discharge, fever or chills See exam Possible infected lip piercing in a poorly controlled IDDM Stable and well giovanny w/ lip stud in place to R lower lip, no swelling/erythema or discharge noted Stud removed easily s/p local anesthetic (3cc lido without epi) -will dc w/ abx and wound check in 2 days 05/26/18 09:52 *DC/Admit/Observation/Transfer Diagnosis at time of Disposition: Infected pierced lip - Discharge Dispostion Disposition: HOME Condition at time of disposition: Good - Referrals Referrals: Del Daigle [Primary Care Provider] - - Patient Instructions Additional Instructions: You were treated for possible lip infection. Take antibiotics as prescribed and return to ED for wound check in 2 days Return sooner if symptoms worsen - Post Discharge Activity
[2018-05-23] MEDS ORDERED: LIDOCAINE HCL 1%, 10 MG/ML (20ML VIAL) ONE (18:08)
== END 2018-05-23 19:14 | disposition home or self-care (01) ==
LOC: JERFT 16:51
DX: E10.65 Type 1 diabetes mellitus with hyperglycemia (principal); Z79.4 Long term (current) use of insulin; K86.1 Other chronic pancreatitis; I10 Essential (primary) hypertension; G40.909 Epilepsy, unspecified, not intractable, without status epilepticus; F41.9 Anxiety disorder, unspecified; F31.9 Bipolar disorder, unspecified
CPT/HCPCS: 99281-25

== ENCOUNTER 2018-06-25 12:06 | Emergency (ER) | payer OTHER ==
[2018-06-25 12:12] VITALS: BP 108/66; PULSE 89; TEMP 98.3; BMI 31.9
--- NOTE | 2018-06-25 12:57 | PDOC ---
*Physical Exam - Vital Signs Last Vital Signs Temp Pulse Resp BP Pulse Ox 98.3 F 89 18 108/66 98 06/25/18 12:10 06/25/18 12:10 06/25/18 12:10 06/25/18 12:10 06/25/18 12:10 - Physical Exam Comments: 06/25/18 12:56 The patient was examined by [JAZ Bates] under my direct supervision. I personally evaluated the patient. I concur with the above findings and the plan of care.
[2018-06-25] MEDS ORDERED: ONDANSETRON 4 MG/2 ML VIAL IVPUSH ONE (13:20)
[2018-06-25] MEDS ORDERED: SODIUM CHLORIDE 1,000 ML IV STA (13:20)
[2018-06-25] MEDS ORDERED: ACETAMINOPHEN 1000 MG/100 ML VIAL (NON FORMULARY) IVPB ONE (13:20)
--- NOTE | 2018-06-25 13:20 | PDOC ---
History of Present Illness - General Chief Complaint: Pain Stated Complaint: ABD PAIN Time Seen by Provider: 06/25/18 12:55 History Source: Patient - History of Present Illness Timing/Duration: reports: constant Past History - Past Medical History Allergies/Adverse Reactions: Allergies Allergy/AdvReac Type Severity Reaction Status Date / Time mushroom Allergy Verified 06/25/18 12:12 No Known Drug Allergies Allergy Verified 06/25/18 12:12 SEAFOOD Allergy Severe ANAPHYLAXIS Uncoded 06/25/18 12:12 Home Medications: Ambulatory Orders Quetiapine Fumarate [Seroquel] 100 tab PO HS 02/17/17 Clonazepam 1 mg PO BID 10/31/17 Divalproex *ER* [Depakote *ER* -] 500 mg PO BID 10/31/17 Pnv No.95/Ferrous Fum/Folic AC [ Vitamin Tablet] 1 each PO DAILY Risperidone [Risperdal] 2 mg PO BID 10/31/17 Albuterol Sulfate Inhaler - [Ventolin Hfa Inhaler -] 2 inh PO Q4H PRN 02/17/18 Insulin Glargine,Hum.rec.anlog [Lantus Solostar PEN (NF)] 100 units SQ DAILY 06/02 Phenytoin Na Extended [Dilantin -] 100 mg PO BID #30 capsule 02/18/18 Insulin Lispro [Humalog] 60 unit SQ BID 05/10/18 Ciprofloxacin HCl [Cipro] 500 mg PO BID #14 tablet 06/25/18 Famotidine [Pepcid] 20 mg PO BID #14 tablet 06/25/18 Anemia: No Asthma: Yes Cancer: No Cardiac Disorders: Yes (RAPID HEARTBEAT HX) CVA: No COPD: No CHF: Yes Dementia: No Diabetes: (Yes; IDDM) GI Disorders: Yes (PANCREATITIS, DIVERTICULOSIS) Disorders: (YES; FREQUENT UTI'S) HTN: (LOW BP) Hypercholesterolemia: No Liver Disease: No Psychiatric Problems: Yes (anxiety, bipolar) Seizures: Yes Thyroid Disease: (Yes; HYPOTHYROIDISM, HYPOTENSION) - Surgical History Abdominal Surgery: No Appendectomy: No Cardiac Surgery: No Cholecystectomy: No Lung Surgery: No Neurologic Surgery: No Orthopedic Surgery: No - Family Disease History Family Disease History: Heart Disease: Grandparents - Reproductive History (#): 1 Para: 0 Cervical CA: No Dysfunctional Uterine Bleeding: No Ectopic : No Endometrial CA: No Polycystic Ovaries: No Therapeutic (s) & number: No Tubal Ligation: No Spontaneous : 1 - Immunization History Immunization Up to Date: Yes - Suicide/Smoking/Psychosocial Hx Smoking Status: Yes Smoking History: Never smoked Have you smoked in the past 12 months: No Number of Cigarettes Smoked Daily: 1 If you are a former smoker, when did you quit?: 2011 'Breaking Loose' booklet given: 03/11/12 Hx Alcohol Use: No Drug/Substance Use Hx: No Substance Use Type: None Hx Substance Use Treatment: No Abd/GI Specific PMHX - Complaint Specific PMHX Pancreatitis: Yes Review of Systems - Review of Systems Constitutional: No: Chills, Fever ABD/GI: Yes: Constipated, Nausea, Vomiting. No: Blood Streaked Bowels, Diarrhea , Rectal Bleeding, Tarry Stools : Yes: Dysuria. No: Flank Pain, Hematuria *Physical Exam - Vital Signs Last Vital Signs Temp Pulse Resp BP Pulse Ox 98.3 F 89 18 108/66 98 06/25/18 12:10 06/25/18 12:10 06/25/18 12:10 06/25/18 12:10 06/25/18 12:10 - Physical Exam General Appearance: Yes: Appropriately Dressed. No: Apparent Distress HEENT: positive: Normal Voice Neck: positive: Supple Respiratory/Chest: positive: Lungs Clear, Normal Breath Sounds. negative: Respiratory Distress Cardiovascular: positive: Regular Rate, S1, S2 Gastrointestinal/Abdominal: positive: Normal Bowel Sounds, Tender (to epigastrium, NT over RUQ or RLQ), Soft. negative: Distended, Guarding, Rebound Musculoskeletal: negative: CVA Tenderness Integumentary: positive: Dry, Warm Neurologic: positive: Fully Oriented, Alert, Normal Mood/Affect ED Treatment Course - LABORATORY CBC & Chemistry Diagram: 06/25/18 14:10 06/25/18 14:10 Medical Decision Making - Medical Decision Making 06/25/18 13:15 [age]-year-old female, history of HTN, seizures, IDDM, chronic pancreatitis, here with upper abdominal pain with intermittent nausea and vomiting x several days consistent with her pancreatitis per patient. Also reports hard stool with last bowel movement 4 days ago. No rectal pain, melena or BRBPR. Patient also reports that for the past 2 hours, has had urinary frequency with dysuria. No flank pain, f/c or vaginal discharge See exam Possible pancreatitis flare Stable and in NAD w/ +ttp to epigastrium -pain control -zofran -IVF -labs r/o other source Dysuria/freq -r/o uti 06/25/18 15:49 Labs only remarkable for uti, ucx sent. Will tx (prior sensitivity reviewed), no e/o pyelo. BG 301, no gap. Pt poorly controlled DM who recently was given new insulin pump for better control. S/p IVF, FS 210 . Epigastric pain improved and now pt req food. Stable for dc w/ abx. To f/u with PMD and endocrine *DC/Admit/Observation/Transfer Diagnosis at time of Disposition: Epigastric abdominal pain UTI (urinary tract infection) Qualifiers: Urinary tract infection type: acute cystitis Hematuria presence: without hematuria Qualified Code(s): N30.00 - Acute cystitis without hematuria - Discharge Dispostion Disposition: HOME Condition at time of disposition: Improved - Prescriptions Prescriptions: Ciprofloxacin HCl [Cipro] 500 mg PO BID #14 tablet Famotidine [Pepcid] 20 mg PO BID #14 tablet - Referrals - Patient Instructions Printed Discharge Instructions: DI for Urinary Tract Infection (UTI) Additional Instructions: Take medications as directed and follow up with your PMD and endocrine for further evaluation, including better control of your diabetes - Post Discharge Activity
[2018-06-25] MEDS ORDERED: ONDANSETRON 4 MG/2 ML VIAL ONE (13:49)
[2018-06-25] MEDS ORDERED: ACETAMINOPHEN INJECTION 100 ML IVPB ONE (13:49)
[2018-06-25 14:00] LABS: HCG,QUALITATIVE URINE Negative
[2018-06-25 14:10] LABS: URINE APPEARANCE CLOUDY; URINE BACTERIA 3573.7 /hpf (NEGATIVE); URINE BILIRUBIN NEGATIVE (NEGATIVE); URINE CASTS 3 /hpf (0-8); URINE COLOR YELLOW; URINE GLUCOSE (UA) 3+ (NEGATIVE); URINE KETONE NEGATIVE (NEGATIVE); URINE LEUK ESTERASE 2+ (NEGATIVE); URINE NITRITE NEGATIVE (NEGATIVE); URINE PROTEIN TRACE (NEGATIVE); URINE RBC 97 /hpf (0-4); URINE UROBILINOGEN 0.2 mg/dL (0.2-1.0); URINE WBC 796 /hpf (0-5)
[2018-06-25 14:36] LABS: BASO % 0.6 % (0-2.0); EOS % 0.7 % (0-4.5); HEMATOCRIT 40.2 % (32.4-45.2); LYMPH % 32.5 % (8-40); MCH 30.5 pg (25.7-33.7); MCHC 34.7 g/dl (32.0-36.0); MEAN CELL VOLUME 87.8 fl (80-96); MEAN PLT VOLUME 8.6 fl (7.5-11.1); MONO % 6.7 % (3.8-10.2); NEUT % 59.5 % (42.8-82.8); PLATELET COUNT 207 K/MM3 (134-434); RBC 4.58 M/mm3 (3.60-5.2); RDW 12.2 % (11.6-15.6); WHITE BLOOD COUNT 10.2 K/mm3 (4.0-10.0)
[2018-06-25 15:09] LABS: ALBUMIN 3.4 g/dl (3.4-5.0); ALK PHOS 86 U/L (45-117); ANION GAP 8 MMOL/L (8-16); BILIRUBIN,TOTAL 0.6 mg/dL (0.2-1); BLOOD UREA NITROGEN 8 mg/dL (7-18); CALCIUM 9.7 mg/dL (8.5-10.1); CHLORIDE 104 mmol/L (98-107); CO2 25 mmol/L (21-32); CREATININE 0.5 mg/dL (0.55-1.3); LIPASE 315 U/L (73-393); POTASSIUM 3.9 mmol/L (3.5-5.1); SGOT/AST 5 U/L (15-37); SGPT/ALT 12 U/L (13-61); SODIUM 136 mmol/L (136-145); TOT PROT 7.6 g/dl (6.4-8.2)
[2018-06-25 15:19] LABS: GLUCOSE,RANDOM 301 mg/dL (74-106)
[2018-06-25] MEDS ORDERED: FAMOTIDINE 20 MG/50 ML IVPB 20 MG/50 ML MG IVPB ONE (15:37)
[2018-06-25] MEDS ORDERED: SUCRALFATE 1 GM TABLET (FP) PO ONE (15:37)
== END 2018-06-25 17:35 | disposition home or self-care (01) ==
LOC: JER 12:06
PROC: 3E033NZ Introduction of Analgesics, Hypnotics, Sedatives into Peripheral Vein, Percutaneous Approach (ICD-10-PCS; principal; 2018-06-25)
PROC: 3E033GC Introduction of Other Therapeutic Substance into Peripheral Vein, Percutaneous Approach (ICD-10-PCS; 2018-06-25)
PROC: 3E0337Z Introduction of Electrolytic and Water Balance Substance into Peripheral Vein, Percutaneous Approach (ICD-10-PCS; 2018-06-25)
DX: R10.13 Epigastric pain (principal); I10 Essential (primary) hypertension; E11.9 Type 2 diabetes mellitus without complications; K86.1 Other chronic pancreatitis; J45.909 Unspecified asthma, uncomplicated; I25.10 Atherosclerotic heart disease of native coronary artery without angina pectoris; F41.9 Anxiety disorder, unspecified; F31.9 Bipolar disorder, unspecified; Z79.4 Long term (current) use of insulin
CPT/HCPCS: 36415; 80053; 81003; 82962; 83690; 84703; 85025; 87086; 87186; 99282-25; J0131; J7030

== ENCOUNTER → 2018-08-04 | Emergency (ER) | payer OTHER ==
[~2018-08-04] MED LIST: SODIUM CHLORIDE 0.9% 1000 ML INFUS.BAG IV ONE
[2018-08-04 12:25] VITALS: BP 101/64; PULSE 91; TEMP 98; BMI 31.9
--- NOTE | 2018-08-04 13:39 | PDOC ---
History of Present Illness - General Chief Complaint: Lightheaded Stated Complaint: DIZZINESS Time Seen by Provider: 08/04/18 12:44 History Source: Patient Exam Limitations: No Limitations - History of Present Illness Initial Comments: 08/04/18 13:38 27F with a PMH of hypertension, IDDM, chronic pancreatitis and seizures who presents to the ER with complaints of lightheadedness. The patient states that she was walking to her therapists office and felt lightheaded and unsteady. She states that she is unsure if she felt like she was going to syncopize. During this time, she denied feeling any CP, SOB, palpitations, lightheadedness, abdominal pain. Past History - Past Medical History Allergies/Adverse Reactions: Allergies Allergy/AdvReac Type Severity Reaction Status Date / Time mushroom Allergy Verified 08/04/18 12:21 No Known Drug Allergies Allergy Verified 08/04/18 12:21 SEAFOOD Allergy Severe ANAPHYLAXIS Uncoded 08/04/18 12:21 Home Medications: Ambulatory Orders Quetiapine Fumarate [Seroquel] 100 tab PO HS 02/17/17 Clonazepam 1 mg PO BID 10/31/17 Divalproex *ER* [Depakote *ER* -] 500 mg PO BID 10/31/17 Pnv No.95/Ferrous Fum/Folic AC [ Vitamin Tablet] 1 each PO DAILY Risperidone [Risperdal] 2 mg PO BID 10/31/17 Albuterol Sulfate Inhaler - [Ventolin Hfa Inhaler -] 2 inh PO Q4H PRN 02/17/18 Insulin Glargine,Hum.rec.anlog [Lantus Solostar PEN (NF)] 100 units SQ DAILY 06/02 Phenytoin Na Extended [Dilantin -] 100 mg PO BID #30 capsule 02/18/18 Insulin Lispro [Humalog] 60 unit SQ BID 05/10/18 Ciprofloxacin HCl [Cipro] 500 mg PO BID #14 tablet 06/25/18 Famotidine [Pepcid] 20 mg PO BID #14 tablet 06/25/18 Anemia: No Asthma: Yes Cancer: No Cardiac Disorders: Yes (RAPID HEARTBEAT HX) CVA: No COPD: No CHF: Yes Dementia: No Diabetes: (Yes; IDDM) GI Disorders: Yes (PANCREATITIS, DIVERTICULOSIS) Disorders: (YES; FREQUENT UTI'S) HTN: (LOW BP) Hypercholesterolemia: No Liver Disease: No Psychiatric Problems: Yes (anxiety, bipolar) Seizures: Yes Thyroid Disease: (Yes; HYPOTHYROIDISM, HYPOTENSION) - Surgical History Abdominal Surgery: No Appendectomy: No Cardiac Surgery: No Cholecystectomy: No Lung Surgery: No Neurologic Surgery: No Orthopedic Surgery: No - Family Disease History Family Disease History: Heart Disease: Grandparents - Reproductive History (#): 1 Para: 0 Cervical CA: No Dysfunctional Uterine Bleeding: No Ectopic : No Endometrial CA: No Polycystic Ovaries: No Therapeutic (s) & number: No Tubal Ligation: No Spontaneous : 1 - Immunization History Immunization Up to Date: Yes - Suicide/Smoking/Psychosocial Hx Smoking Status: Yes Smoking History: Never smoked Have you smoked in the past 12 months: No Number of Cigarettes Smoked Daily: 1 If you are a former smoker, when did you quit?: 2011 Information on smoking cessation initiated: No 'Breaking Loose' booklet given: 03/11/12 Hx Alcohol Use: No Drug/Substance Use Hx: No Substance Use Type: None Hx Substance Use Treatment: No Review of Systems - Review of Systems Able to Perform ROS?: Yes Comments:: 08/04/18 15:58 GENERAL/CONSTITUTIONAL: No fever or chills. No weakness. HEAD, EYES, EARS, NOSE AND THROAT: No change in vision. No ear pain or discharge. No sore throat. CARDIOVASCULAR: + for lightheadedness. No chest pain or palpitations. RESPIRATORY: No cough, wheezing, shortness of breath, or hemoptysis. GASTROINTESTINAL: No nausea, vomiting, diarrhea, constipation, or abdominal pain. GENITOURINARY: No dysuria, frequency, hematuria, or change in urination. MUSCULOSKELETAL: No joint or muscle swelling or pain. No neck or back pain. SKIN: No rash or lesions. NEUROLOGIC: No headache, numbness, tingling, focal weakness, loss of consciousness, or change in strength/sensation. Is the patient limited Grenadian proficient: No *Physical Exam - Vital Signs Last Vital Signs Temp Pulse Resp BP Pulse Ox 98.0 F 91 H 16 101/64 99 08/04/18 12:05 08/04/18 12:05 08/04/18 12:05 08/04/18 12:05 08/04/18 12:05 - Physical Exam Comments: 08/04/18 15:58 GENERAL: Well developed, well nourished. Awake and alert. No acute distress. HEENT: Normocephalic, atraumatic. Hearing grossly normal. Moist mucous membranes. PERRLA, EOMI. No conjunctival pallor. Sclera are non-icteric. NECK: Supple. Full ROM. No JVD. CARDIOVASCULAR: Regular rate and rhythm. No murmurs, rubs, or gallops. PULMONARY: No evidence of respiratory distress. Lungs clear to auscultation bilaterally. No wheezing, rales or rhonchi. ABDOMINAL: Soft. Non-tender. Non-distended. No rebound or guarding. GENITOURINARY: No CVA tenderness bilaterally. MUSCULOSKELETAL: Normal range of motion at all joints. No bony deformities or tenderness. EXTREMITIES: No cyanosis. No clubbing. No edema. No calf tenderness or swelling. SKIN: Warm and dry. Normal capillary refill. No rashes. No jaundice. NEUROLOGICAL: Alert, awake, appropriate. Cranial nerves 2-12 grossly intact. Normal speech. Gait is normal without ataxia. PSYCHIATRIC: Cooperative. Good eye contact. Appropriate mood and affect. Medical Decision Making - Medical Decision Making 08/04/18 15:59 27F with a PMH of seizures and HTN who presents to the ED after feeling unstead. Pt states she is unsure if she had a seizure but admits to feeling anxious. I informed the patient that we will obtain bloodwork and reassess. Pt eloped, noted to be ambulating without any issues around the ED. *DC/Admit/Observation/Transfer Diagnosis at time of Disposition: Lightheaded - Discharge Dispostion Disposition: ELOPED Condition at time of disposition: Fair Decision to Admit order: No - Referrals Referrals: Del Daigle [Primary Care Provider] - - Patient Instructions - Post Discharge Activity
--- NOTE | 2018-08-04 16:28 | PDOC ---
Documentation entered by Kishore Neal SCRIBE, acting as scribe for Anjel Schulte MD. Anjel Schulte MD: This documentation has been prepared by the Ángel ochoa Daniel, SCRIBE, under my direction and personally reviewed by me in its entirety. I confirm that the documentation accurately reflects all work, treatment, procedures, and medical decision making performed by me. Attending Attestation - Resident Resident Name: Rod Grimes - ED Attending Attestation I have performed the following: I have examined & evaluated the patient, The case was reviewed & discussed with the resident, I agree w/resident's findings & plan, Exceptions are as noted - HPI HPI: 08/04/18 13:14 27F with a PMH of hypertension, IDDM, chronic pancreatitis and seizures who presents to the ER with complaints of lightheadedness. Per EMS pt was feeling alittle lightheaded thought she was going to have seizure, called EMS, no actual seizures. Pt denies any abd pain, cp, sob, palpitations, lightheadness, diarrhea, melena, bpr, dysuria. on exam general no distress abd soft nontender pulm cta b/l srini ck labs to r/o anemia,mebatolic derangement, ua to screen for uti/preg - Physicial Exam PE: 08/04/18 17:11 see above - Medical Decision Making 08/04/18 17:11 pt eloped prior to having her orders carried out
--- NOTE | 2018-08-05 12:24 | EKG ---
Test Reason : Blood Pressure : / mmHG Vent. Rate : 084 BPM Atrial Rate : 084 BPM P-R Int : 172 ms QRS Dur : 084 ms QT Int : 372 ms P-R-T Axes : 060 044 046 degrees QTc Int : 439 ms NORMAL SINUS RHYTHM POSSIBLE LEFT ATRIAL ENLARGEMENT BORDERLINE ECG WHEN COMPARED WITH ECG OF 03-MAY-2018 10:46, NO SIGNIFICANT CHANGE WAS FOUND Confirmed by MD Saumya, Alex ([id number]) on 08/05/2018 12:23:34 PM Referred By: Confirmed By:Alex Kerns MD
== END | disposition left against medical advice (07) ==
LOC: JER 12:05
DX: R42 Dizziness and giddiness (principal); I95.9 Hypotension, unspecified; E10.9 Type 1 diabetes mellitus without complications; Z79.4 Long term (current) use of insulin; E03.9 Hypothyroidism, unspecified; F31.9 Bipolar disorder, unspecified; F41.9 Anxiety disorder, unspecified
CPT/HCPCS: 93005; 93010; 99281-25

== ENCOUNTER 2018-08-30 18:56 | Emergency (ER) | payer OTHER ==
[2018-08-30 19:08] VITALS: BMI 31.9
--- NOTE | 2018-08-30 19:35 | PDOC ---
History of Present Illness - History of Present Illness Initial Comments: 08/30/18 19:33 27 yo M F with h/o HTN, IDDM, chronic pancreatitis, seizure disorder who p/w lightheadedness, fatigue, myalgias. Patient reports 1 day of lightheadedness with exertion, feels that she is going to "faint." Also endorses decreased appetite, and increased somnolence today. + Diffuse myalgias. Also endorses diffuse dull, frontal, headache, No other complaints. Patient denies vision change, palpitations, cough, wheezing, orthopena, PND, leg swelling/pain, N/V, F,C, CP, SOB, urinary complaints, hematuria, BPR, abdominal pain, diarrhea, constipation, sensory changes. PMHx: as noted above ROS: as noted SHx: Denies Etoh, IVDA, tobacco use Allergies: NKDA <Mckinley Man - Last Filed: 08/30/18 22:29> <Peyton Carroll - Last Filed: 08/30/18 22:32> - General Chief Complaint: Pain Stated Complaint: PAIN & FEVER Time Seen by Provider: 08/30/18 19:30 Past History - Past Medical History Anemia: No Asthma: Yes Cancer: No Cardiac Disorders: Yes (RAPID HEARTBEAT HX) CVA: No COPD: No CHF: Yes Dementia: No Diabetes: (Yes; IDDM) GI Disorders: Yes (PANCREATITIS, DIVERTICULOSIS) Disorders: (YES; FREQUENT UTI'S) HTN: (LOW BP) Hypercholesterolemia: No Liver Disease: No Psychiatric Problems: Yes (anxiety, bipolar) Seizures: Yes Thyroid Disease: (Yes; HYPOTHYROIDISM, HYPOTENSION) - Surgical History Abdominal Surgery: No Appendectomy: No Cardiac Surgery: No Cholecystectomy: No Lung Surgery: No Neurologic Surgery: No Orthopedic Surgery: No - Family Disease History Family Disease History: Heart Disease: Grandparents - Reproductive History (#): 1 Para: 0 Cervical CA: No Dysfunctional Uterine Bleeding: No Ectopic : No Endometrial CA: No Polycystic Ovaries: No Therapeutic (s) & number: No Tubal Ligation: No Spontaneous : 1 - Immunization History Immunization Up to Date: Yes - Suicide/Smoking/Psychosocial Hx Smoking Status: Yes Smoking History: Never smoked Have you smoked in the past 12 months: No Number of Cigarettes Smoked Daily: 1 If you are a former smoker, when did you quit?: 2011 'Breaking Loose' booklet given: 03/11/12 Hx Alcohol Use: No Drug/Substance Use Hx: No Substance Use Type: None Hx Substance Use Treatment: No <Mckinley Man - Last Filed: 08/30/18 22:29> <CarlyPeyton - Last Filed: 08/30/18 22:32> - Past Medical History Allergies/Adverse Reactions: Allergies Allergy/AdvReac Type Severity Reaction Status Date / Time mushroom Allergy Verified 08/04/18 12:21 No Known Drug Allergies Allergy Verified 08/04/18 12:21 SEAFOOD Allergy Severe ANAPHYLAXIS Uncoded 08/04/18 12:21 Home Medications: Ambulatory Orders Quetiapine Fumarate [Seroquel] 100 tab PO HS 02/17/17 Divalproex *ER* [Depakote *ER* -] 500 mg PO BID 10/31/17 Albuterol Sulfate Inhaler - [Ventolin Hfa Inhaler -] 2 inh PO Q4H PRN 02/17/18 Phenytoin Na Extended [Dilantin -] 100 mg PO BID #30 capsule 02/18/18 Fluoxetine HCl [Prozac] 40 mg PO DAILY 08/30/18 Insulin Lispro Protamin/Lispro [Humalog Mix 75-25 Kwikpen] 0 unit SQ BID Review of Systems - Review of Systems Comments:: 08/30/18 19:33 GENERAL/CONSTITUTIONAL: + weakness. No fever or chills. HEAD, EYES, EARS, NOSE AND THROAT: No change in vision. No ear pain or discharge. No sore throat. CARDIOVASCULAR: No chest pain or shortness of breath RESPIRATORY: No cough, wheezing, or hemoptysis. GASTROINTESTINAL: No nausea, vomiting, diarrhea or constipation. GENITOURINARY: No dysuria, frequency, or change in urination. MUSCULOSKELETAL: No joint or muscle swelling or pain. No neck or back pain. SKIN: No rash NEUROLOGIC: + lightheadedness, headache. No vertigo, loss of consciousness, or change in strength/sensation. ENDOCRINE: No increased thirst. No abnormal weight change HEMATOLOGIC/LYMPHATIC: No anemia, easy bleeding, or history of blood clots. ALLERGIC/IMMUNOLOGIC: No hives or skin allergy. <Mckinley Man - Last Filed: 08/30/18 22:29> *Physical Exam - Vital Signs Last Vital Signs Temp Pulse Resp BP Pulse Ox 98.1 F 100 H 20 112/68 97 08/30/18 19:04 08/30/18 19:04 08/30/18 19:04 08/30/18 19:04 08/30/18 19:04 - Physical Exam Comments: 08/30/18 19:33 GENERAL: Awake, alert, and fully oriented, in no acute distress HEAD: No signs of trauma, normocephalic, atraumatic EYES: PERRLA, EOMI, sclera anicteric, conjunctiva clear ENT: Auricles normal inspection, hearing grossly normal, nares patent, oropharynx clear without exudates. Moist mucosa NECK: Normal ROM, supple, no lymphadenopathy, JVD, or masses LUNGS: No distress, speaks full sentences, clear to auscultation bilaterally HEART: Regular rate and rhythm, normal S1 and S2, no murmurs, rubs or gallops, peripheral pulses normal and equal bilaterally. ABDOMEN: Soft, nontender, normoactive bowel sounds. No guarding, no rebound. No masses EXTREMITIES : Normal inspection, Normal range of motion, no edema. No clubbing or cyanosis. NEUROLOGICAL: Neg brudinsky, kernig. Cranial nerves II through XII grossly intact. Normal speech, normal gait, no focal sensorimotor deficits SKIN: Warm, Dry, normal turgor, no rashes or lesions noted <Mckinley Man - Last Filed: 08/30/18 22:29> - Vital Signs Last Vital Signs Temp Pulse Resp BP Pulse Ox 98.1 F 97 H 18 113/70 99 08/30/18 19:04 08/30/18 21:04 08/30/18 21:04 08/30/18 21:04 08/30/18 21:04 <Peyton Carroll - Last Filed: 08/30/18 22:32> ED Treatment Course - LABORATORY CBC & Chemistry Diagram: 08/30/18 20:05 08/30/18 20:05 <Mckinley Man - Last Filed: 08/30/18 22:29> - LABORATORY CBC & Chemistry Diagram: 08/30/18 20:05 08/30/18 20:05 - ADDITIONAL ORDERS Additional order review: Laboratory Results 08/30/18 08/30/18 08/30/18 20:28 20:05 20:05 Sodium 136 Potassium 4.1 Chloride 102 Carbon Dioxide 25 Anion Gap 9 BUN 8.4 Creatinine 0.6 Est GFR (CKD-EPI)AfAm 145.80 Est GFR (CKD-EPI)NonAf 125.80 POC Glucometer 272 Random Glucose 278 H Calcium 9.1 Total Bilirubin 0.6 AST 9 L ALT 11 L Alkaline Phosphatase 104 Total Protein 7.7 Albumin 3.3 L Lipase 134 Serum , Qual Negative Acetone, Qual Trace H 08/30/18 08/30/18 20:28 20:05 RBC 4.77 MCV 84.6 MCHC 33.9 RDW 12.5 MPV 8.4 Neutrophils % 73.2 D Lymphocytes % 19.7 D Monocytes % 5.8 Eosinophils % 0.5 Basophils % 0.8 POC Glucometer 272 - Medications Given in the ED: ED Medications Discontinued Medications Generic Name Dose Route Start Last Admin Trade Name Freq PRN Reason Stop Dose Admin Sodium Chloride 1,000 mls @ 1,000 mls/hr 08/30/18 20:07 08/30/18 20:24 Normal Saline - IV 08/30/18 21:06 1,000 mls/hr ASDIR STA Administration Insulin Human Regular 2 units 08/30/18 20:34 08/30/18 20:54 Novolin R Vial *For Ivpush Or Iv Drip Only* SQ 08/30/18 20:35 2 units ONCE ONE Administration <Peyton Carroll - Last Filed: 08/30/18 22:32> Medical Decision Making - Medical Decision Making 08/30/18 19:34 27 yo M F with h/o HTN, IDDM, chronic pancreatitis, seizure disorder who p/w lightheadedness, fatigue, myalgias x 1 day. Physical exam unremarkable. HR 100, vitals otherwise wnl, AF, A&Ox3. Neg nuchal findings, neck stiffness. Denies vision change, palpitations, cough, wheezing, leg swelling/pain, N/V, F/C, CP, SOB, urinary complaints, hematuria, BPR, abdominal pain, diarrhea, constipation , sensory changes. Will assess for cardiac dysarrythmias, DKA/hypoglycemia, electrolyte abnml, metabolic and toxic derangements, acid-base disturbances, infection. Ed Course: 08/30/18 22:24 Laboratory Tests 0608/30/18 08/30/18 20:05 20:05 20:05 WBC 13.1 H Random Glucose 278 H Serum , Qual Negative Acetone, Qual Trace H 08/30/18 22:29 Patient symptoms improved. Stable for d/c with return precautions. <Mckinley Man - Last Filed: 08/30/18 22:29> *DC/Admit/Observation/Transfer - Discharge Dispostion Decision to Admit order: No <Mckinley Man - Last Filed: 08/30/18 22:29> <Peyton Carroll - Last Filed: 08/30/18 22:32> Diagnosis at time of Disposition: Viral syndrome - Discharge Dispostion Disposition: HOME Condition at time of disposition: Stable - Referrals Referrals: Del Daigle [Primary Care Provider] - - Patient Instructions Printed Discharge Instructions: Getting to the Heart of a Healthful Diet, The Best Diet for You, DI for Viral Syndrome Additional Instructions: Please return to the emergency department with any new or worsening symptoms or concerns. Please follow up with your primary care physician within 72 hours.
[2018-08-30] MEDS ORDERED: SODIUM CHLORIDE 1,000 ML IV STA (20:07)
[2018-08-30 20:22] LABS: BASO % 0.8 % (0-2.0); EOS % 0.5 % (0-4.5); HEMATOCRIT 40.3 % (32.4-45.2); HEMOGLOBIN 13.7 GM/dL (10.7-15.3); LYMPH % 19.7 % (8-40); MCH 28.6 pg (25.7-33.7); MCHC 33.9 g/dl (32.0-36.0); MEAN CELL VOLUME 84.6 fl (80-96); MEAN PLT VOLUME 8.4 fl (7.5-11.1); MONO % 5.8 % (3.8-10.2); NEUT % 73.2 % (42.8-82.8); PLATELET COUNT 214 K/MM3 (134-434); RBC 4.77 M/mm3 (3.60-5.2); RDW 12.5 % (11.6-15.6); WHITE BLOOD COUNT 13.1 K/mm3 (4.0-10.0)
[2018-08-30 20:32] LABS: ACETONE SERUM TRACE (NEGATIVE)
[2018-08-30] MEDS ORDERED: INSULIN REGULAR HUMAN 100 UNITS/ML *VIAL SQ ONE (20:34)
[2018-08-30] MEDS ORDERED: INSULIN REGULAR HUMAN 100 UNITS/ML *VIAL ONE (20:52)
[2018-08-30 22:23] LABS: ALBUMIN 3.3 g/dl (3.4-5.0); ALK PHOS 104 U/L (45-117); ANION GAP 9 MMOL/L (8-16); BILIRUBIN,TOTAL 0.6 mg/dL (0.2-1); BLOOD UREA NITROGEN 8.4 mg/dL (7-18); CALCIUM 9.1 mg/dL (8.5-10.1); CHLORIDE 102 mmol/L (98-107); CO2 25 mmol/L (21-32); CREATININE 0.6 mg/dL (0.55-1.3); GLUCOSE,RANDOM 278 mg/dL (74-106); LIPASE 134 U/L (73-393); POTASSIUM 4.1 mmol/L (3.5-5.1); SGOT/AST 9 U/L (15-37); SGPT/ALT 11 U/L (13-61); SODIUM 136 mmol/L (136-145); TOT PROT 7.7 g/dl (6.4-8.2)
--- NOTE | 2018-08-30 22:32 | PDOC ---
Documentation entered by Mara Porter SCRIBE, acting as scribe for Peyton Carroll MD. Peyton Carroll MD: This documentation has been prepared by the jessiibe, Mara Porter SCRIBE, under my direction and personally reviewed by me in its entirety. I confirm that the documentation accurately reflects all work, treatment, procedures, and medical decision making performed by me. Attending Attestation - Resident Resident Name: Solomon Manson - ED Attending Attestation I have performed the following: I have examined & evaluated the patient, The case was reviewed & discussed with the resident, I agree w/resident's findings & plan - HPI HPI: 08/30/18 20:28 The patient is a 27 year old female with a significant past medical history of hypertension, diabetes, chronic pancreatitis and seizures who presents to the emergency department with lightheadedness today. The patient reports some associated generalized weakness, decreased appetite, and a headache. The patient states that she took motrin with no apparent relief. She also reports some stomach pain and increased sleepiness. She denies any other symptoms or complaints. - Physicial Exam PE: 08/30/18 22:31 GENERAL: (+)obese. Awake, alert, and fully oriented, in no acute distress HEAD: No signs of trauma EYES: PERRLA, EOMI, sclera anicteric, conjunctiva clear ENT: Auricles normal inspection, hearing grossly normal, nares patent, oropharynx clear without exudates. Moist mucosa NECK: Normal ROM, supple, no lymphadenopathy, JVD, or masses LUNGS: Breath sounds equal, clear to auscultation bilaterally. No wheezes, and no crackles HEART: Regular rate and rhythm, normal S1 and S2, no murmurs, rubs or gallops ABDOMEN: Soft, nontender, normoactive bowel sounds. No guarding, no rebound. No masses EXTREMITIES: (+)shooting pains in legs, paresthesias. Normal range of motion, no edema. No clubbing or cyanosis. No cords, erythema, or tenderness NEUROLOGICAL: Cranial nerves II through XII grossly intact. Normal speech, normal gait SKIN: Warm, Dry, normal turgor, no rashes or lesions noted. - Medical Decision Making 08/30/18 20:49 Pt is not ; her cbc is normal. FS is 272; she has small acetone that will be treated with saline bolus and reg isulin Subcutaeous. Rest of chem pending. 08/30/18 21:52 Pt is not . Chem is still pending. 08/30/18 22:14 Pt is obese and she doesn't exercise. She has been diabetic since she was 12 years old. Still DM is out of control, even though she is compliant with Insulin 75/25 60 Units BID; pt was advised to diet and exercise, as she has worsening paresthesias in her legs bilaterally. We discussed the fact that diet and glucose tight control is related to decreased peripheral morbidity associated with DM.
[2018-08-30 22:53] VITALS: BP 107/73; PULSE 106; TEMP 98.5
--- NOTE | 2018-08-31 17:01 | EKG ---
Test Reason : Blood Pressure : / mmHG Vent. Rate : 096 BPM Atrial Rate : 096 BPM P-R Int : 156 ms QRS Dur : 090 ms QT Int : 350 ms P-R-T Axes : 072 088 063 degrees QTc Int : 442 ms NORMAL SINUS RHYTHM BIATRIAL ENLARGEMENT ABNORMAL ECG WHEN COMPARED WITH ECG OF 04-AUG-2018 14:06, NO SIGNIFICANT CHANGE WAS FOUND Confirmed by MD NIRANJAN, PITO ([id number]) on 08/31/2018 5:01:25 PM Referred By: Confirmed By:PITO UREÑA MD
== END 2018-08-30 22:53 | disposition home or self-care (01) ==
LOC: JER 18:56
PROC: 3E0337Z Introduction of Electrolytic and Water Balance Substance into Peripheral Vein, Percutaneous Approach (ICD-10-PCS; principal; 2018-08-30)
PROC: 3E013VG Introduction of Insulin into Subcutaneous Tissue, Percutaneous Approach (ICD-10-PCS; 2018-08-30)
DX: B34.9 Viral infection, unspecified (principal); E10.65 Type 1 diabetes mellitus with hyperglycemia; Z79.4 Long term (current) use of insulin; K86.1 Other chronic pancreatitis; I10 Essential (primary) hypertension; G40.909 Epilepsy, unspecified, not intractable, without status epilepticus
CPT/HCPCS: 36415; 80053; 82009; 82962; 83690; 84703; 85025; 93005; 93010; 96360; 96372; 99283-25; J7030

== ENCOUNTER 2018-09-20 21:10 | Emergency (ER) | payer OTHER ==
[2018-09-20 21:16] VITALS: TEMP 98.6; BMI 32.6
[2018-09-20] MEDS ORDERED: ACETAMINOPHEN 1000 MG/100 ML VIAL (NON FORMULARY) IVPB ONE (21:55)
[2018-09-20] MEDS ORDERED: SODIUM CHLORIDE 1,000 ML IV STA (21:55)
[2018-09-20] MEDS ORDERED: METOCLOPRAMIDE HCL INJECTION 10 MG/2 ML VIAL IVPUSH ONE (21:55)
--- NOTE | 2018-09-20 22:29 | PDOC ---
History of Present Illness - General Chief Complaint: Migraine Headache Stated Complaint: WEAK/MIGRAINES Time Seen by Provider: 09/20/18 21:29 History Source: Patient, Old Records Exam Limitations: No Limitations - History of Present Illness Initial Comments: 09/20/18 23:50 HISTORY OF PRESENT ILLNESS: 27-year-old woman well-known to this emergency Department with past medical history of pseudotumor cerebri, seizures, IDDM, chronic pancreatitis presents emergency department for evaluation of lightheadedness, fatigue and "I think I'm going to have a seizure." Patient reports compliance with Depakote and Dilantin which are her seizure medications. Patient reports she has an appointment with Dr. Donaldson on Saturday. No recent travel or sick contacts. PAST MEDICAL HISTORY: see HPI SURGICAL HISTORY: Denies ALLERGIES: No known drug allergies REVIEW OF SYSTEMS General/Constitutional: Denies fever or chills. Denies weakness, weight change. HEENT: Denies change in vision. Denies ear pain or discharge. Denies sore throat. Cardiovascular: Denies chest pain or shortness of breath. Respiratory: Denies cough, wheezing, or hemoptysis. Gastrointestinal: Denies nausea, vomiting, diarrhea or constipation. Denies rectal bleeding. Genitourinary: Denies dysuria, frequency, or change in urination. Musculoskeletal: Denies joint or muscle swelling or pain. Denies neck or back pain. Skin and breasts: Denies rash or easy bruising. Neurologic: Dsee HPI Psychiatric: Denies depression or anxiety. Endocrine: Denies increased thirst. Denies abnormal weight change. Hematologic/Lymphatic: Denies anemia, easy bleeding, or history of blood clots. Allergic/Immunologic: Denies hives or skin allergy. Denies latex allergy. PHYSICAL EXAM General Appearance: Well-appearing, appropriately dressed. No apparent distress , no intoxication. HEENT: EOMI, PERRLA, normal ENT inspection, normal voice, TMs normal. No conjunctival pallor. No photophobia, scleral icterus. Oropharynx mildly erythematous with cobblestoning present in the posterior aspect. Neck: Supple. Trachea midline. No tenderness, rigidity, carotid bruit, stridor , lymphadenopathy, or thyromegaly. Respiratory/Chest: Lungs CTAB. No shortness of breath, chest tenderness, respiratory distress, accessory muscle use. No crackles, rales, rhonchi, stridor , wheezing, dullness Cardiovascular: RRR. S1, S2. No JVD, murmur, bradycardia, tachycardia. Vascular Pulses: Dorsalis-Pedis (R): 2+, Dorsalis-Pedis (L): 2+ Gastrointestinal/Abdominal: Normal bowel sounds. Abdomen soft, non-distended. No tenderness or rebound tenderness. No organomegaly, pulsatile mass, guarding, hernia, hepatomegaly, splenomegaly. Lymphatic: No adenopathy, tenderness. Musculoskeletal/Extremities: Normal inspection. FROM of all extremities, normal capillary refill. Pelvis Stable. No CVA tenderness. No tenderness to extremities, pedal edema, swelling, erythema or deformity. Integumentary: Appropriate color, dry, warm. No cyanosis, erythema, jaundice or rash Neurologic: jira developer II-XII intact. Fully oriented, alert. Appropriate mood/affect. Motor strength 5/5. No appreciable EOM palsy, facial droop or sensory deficit. 09/20/18 23:55 Past History - Past Medical History Allergies/Adverse Reactions: Allergies Allergy/AdvReac Type Severity Reaction Status Date / Time mushroom Allergy Verified 09/20/18 21:16 No Known Drug Allergies Allergy Verified 09/20/18 21:16 SEAFOOD Allergy Severe ANAPHYLAXIS Uncoded 09/20/18 21:16 Home Medications: Ambulatory Orders Quetiapine Fumarate [Seroquel] 100 tab PO HS 02/17/17 Divalproex *ER* [Depakote *ER* -] 500 mg PO BID 10/31/17 Albuterol Sulfate Inhaler - [Ventolin Hfa Inhaler -] 2 inh PO Q4H PRN 02/17/18 Phenytoin Na Extended [Dilantin -] 100 mg PO BID #30 capsule 02/18/18 Fluoxetine HCl [Prozac] 40 mg PO DAILY 08/30/18 Insulin Lispro Protamin/Lispro [Humalog Mix 75-25 Kwikpen] 0 unit SQ BID Anemia: No Asthma: Yes Cancer: No Cardiac Disorders: Yes (RAPID HEARTBEAT HX) CVA: No COPD: No CHF: Yes Dementia: No Diabetes: (Yes; IDDM) GI Disorders: Yes (PANCREATITIS, DIVERTICULOSIS) Disorders: (YES; FREQUENT UTI'S) HTN: (LOW BP) Hypercholesterolemia: No Liver Disease: No Psychiatric Problems: Yes (anxiety, bipolar) Seizures: Yes Thyroid Disease: (Yes; HYPOTHYROIDISM, HYPOTENSION) - Surgical History Abdominal Surgery: No Appendectomy: No Cardiac Surgery: No Cholecystectomy: No Lung Surgery: No Neurologic Surgery: No Orthopedic Surgery: No - Family Disease History Family Disease History: Heart Disease: Grandparents - Reproductive History (#): 1 Para: 0 Cervical CA: No Dysfunctional Uterine Bleeding: No Ectopic : No Endometrial CA: No Polycystic Ovaries: No Therapeutic (s) & number: No Tubal Ligation: No Spontaneous : 1 - Immunization History Immunization Up to Date: Yes - Suicide/Smoking/Psychosocial Hx Smoking Status: Yes Smoking History: Unknown if ever smoked Have you smoked in the past 12 months: No Number of Cigarettes Smoked Daily: 1 If you are a former smoker, when did you quit?: 2011 'Breaking Loose' booklet given: 03/11/12 Hx Alcohol Use: No Drug/Substance Use Hx: No Substance Use Type: None Hx Substance Use Treatment: No *Physical Exam - Vital Signs Last Vital Signs Temp Pulse Resp BP Pulse Ox 98.6 F 88 18 118/71 98 09/20/18 21:13 09/20/18 21:13 09/20/18 21:13 09/20/18 21:13 09/20/18 21:13 ED Treatment Course - LABORATORY CBC & Chemistry Diagram: 09/20/18 22:15 09/20/18 22:15 Medical Decision Making - Medical Decision Making 09/20/18 23:56 A/P: 27-year-old woman with lightheadedness weakness Physical exam is consistent with an upper respiratory viral infection. As patient has multiple comorbidities I cannot rule out's metabolic derangements or DKA on examination alone. Basic labs including acetone, Dilantin and Depakote levels Urinalysis Normal saline 1 L IV bolus Reglan 10 mg IV now Benadryl 25 mg IV now Toradol 30 mg IV now Reassess 09/20/18 23:58 09/20/18 23:59 Laboratory Tests 09/20/18 09/20/18 09/20/18 22:15 22:15 22:15 WBC 6.8 Hgb 12.9 Hct 38.9 Plt Count 208 VBG pH 7.37 Sodium 137 Potassium 3.9 Chloride 103 Carbon Dioxide 26 BUN 11.1 Creatinine 0.7 Random Glucose 380 H* Phenytoin Valproic Acid Acetone, Qual Negative L 09/20/18 22:15 WBC Hgb Hct Plt Count VBG pH Sodium Potassium Chloride Carbon Dioxide BUN Creatinine Random Glucose Phenytoin 1.4 L Valproic Acid 45.3 L Acetone, Qual We'll contact patient's neurologist. 09/21/18 00:36 Dr. Damian returned page. He states he is not covering Dr. Donaldson tonight by Dr. Donaldson has his own coverage. Dr. Haley re-paged. 09/21/18 02:00 Patient reports improvement of symptoms after receiving her medications. Multiple attempts to contact Dr. Donaldson the patient's neurologist have been unsuccessful. I will give the patient a loading dose of Dilantin 700 mg orally instruct patient to take her Dilantin 100 mg twice a day until she is evaluated by Dr. Donaldson on Saturday. I discussed the physical exam findings, ancillary test results and final diagnoses with the patient. I answered all of the patient's questions. The patient was satisfied with the care received and felt comfortable with the discharge plan and treatment plan. The patient will call their primary care physician within 24 hours to arrange follow-up and will return to the Emergency Department with any new, persistent or worsening symptoms. *DC/Admit/Observation/Transfer Diagnosis at time of Disposition: Headache Qualifiers: Headache type: unspecified Headache chronicity pattern: acute headache Intractability: not intractable Qualified Code(s): R51 - Headache - Discharge Dispostion Disposition: HOME Condition at time of disposition: Fair Decision to Admit order: No - Referrals - Patient Instructions Additional Instructions: Take Tylenol or Motrin as needed for headaches. Continue Dilantin 100 mg twice a day until your evaluated by Dr. Donaldson. Continue Depakote as previously prescribed. Keep your appointment with your neurologist on Saturday. Return to emergency department for worsening headache, blurry vision, dizziness , nausea, vomiting or any other concerns. Thank you very much for for choosing us to provide emergent health care needs. - Post Discharge Activity
[2018-09-20 22:47] LABS: BASO % 0.9 % (0-2.0); EOS % 1.3 % (0-4.5); HEMATOCRIT 38.9 % (32.4-45.2); HEMOGLOBIN 12.9 GM/dL (10.7-15.3); LYMPH % 48.7 % (8-40); MCH 28.6 pg (25.7-33.7); MCHC 33.3 g/dl (32.0-36.0); MEAN CELL VOLUME 86.1 fl (80-96); MEAN PLT VOLUME 8.6 fl (7.5-11.1); NEUT % 44.1 % (42.8-82.8); PLATELET COUNT 208 K/MM3 (134-434); RBC 4.52 M/mm3 (3.60-5.2); RDW 13.6 % (11.6-15.6); WHITE BLOOD COUNT 6.8 K/mm3 (4.0-10.0)
[2018-09-20 22:52] LABS: VENOUS PC02 45.5 mmHg (41-51); VENOUS PH 7.37 (7.31-7.41)
[2018-09-20 22:53] LABS: VENOUS PO2 26.2 mmHg (30-40)
[2018-09-20 23:31] LABS: ALBUMIN 3.6 g/dl (3.4-5.0); ALK PHOS 89 U/L (45-117); ANION GAP 7 MMOL/L (8-16); BILIRUBIN,TOTAL 0.2 mg/dL (0.2-1); BLOOD UREA NITROGEN 11.1 mg/dL (7-18); CHLORIDE 103 mmol/L (98-107); CO2 26 mmol/L (21-32); CREATININE 0.7 mg/dL (0.55-1.3); POTASSIUM 3.9 mmol/L (3.5-5.1); SGOT/AST 5 U/L (15-37); SGPT/ALT 14 U/L (13-61); SODIUM 137 mmol/L (136-145); TOT PROT 7.6 g/dl (6.4-8.2)
[2018-09-20 23:34] LABS: GLUCOSE,RANDOM 380 mg/dL (74-106)
[2018-09-20 23:35] LABS: ACETONE SERUM NEGATIVE (NEGATIVE)
[2018-09-20 23:42] LABS: PHENYTOIN (DILANTIN) 1.4 ug/ml (10.0-20.0); VALPROIC ACID DEPAKOTE DEPAKAN 45.3 ug/ml (50-100)
[2018-09-21] MEDS ORDERED: INSULIN REGULAR HUMAN 100 UNITS/ML *VIAL IVPUSH ONE
[2018-09-21] MEDS ORDERED: KETOROLAC TROMETHAMINE 30 MG/1 ML VIAL IVPUSH ONE (00:07)
[2018-09-21] MEDS ORDERED: INSULIN REGULAR HUMAN 100 UNITS/ML *VIAL ONE (00:08)
[2018-09-21] MEDS ORDERED: PHENYTOIN NA EXTENDED 100 MG CAPSULE (FP) PO ONE (01:47)
[2018-09-21] MEDS ORDERED: PHENYTOIN NA EXTENDED 100 MG CAPSULE (FP) ONE (02:33)
[2018-09-21 02:43] VITALS: BP 125/75; PULSE 84
== END 2018-09-21 02:43 | disposition home or self-care (01) ==
LOC: JER 21:10
PROC: 3E033NZ Introduction of Analgesics, Hypnotics, Sedatives into Peripheral Vein, Percutaneous Approach (ICD-10-PCS; principal; 2018-09-20)
PROC: 3E033GC Introduction of Other Therapeutic Substance into Peripheral Vein, Percutaneous Approach (ICD-10-PCS; 2018-09-20)
PROC: 3E033GC Introduction of Other Therapeutic Substance into Peripheral Vein, Percutaneous Approach (ICD-10-PCS; 2018-09-20)
PROC: 3E033VG Introduction of Insulin into Peripheral Vein, Percutaneous Approach (ICD-10-PCS; 2018-09-20)
PROC: 3E0333Z Introduction of Anti-inflammatory into Peripheral Vein, Percutaneous Approach (ICD-10-PCS; 2018-09-20)
DX: R51 Headache (principal); G40.909 Epilepsy, unspecified, not intractable, without status epilepticus; E10.9 Type 1 diabetes mellitus without complications; Z79.4 Long term (current) use of insulin; K86.1 Other chronic pancreatitis; J45.909 Unspecified asthma, uncomplicated
CPT/HCPCS: 36415; 80053; 80164; 80185; 82009; 82803; 85025; 96374; 96375; 99282-25; J0131; J7030

== ENCOUNTER 2018-09-25 01:24 | Emergency (ER) | payer OTHER ==
--- NOTE | 2018-09-25 01:46 | PDOC ---
Attending Attestation - Resident Resident Name: Adrianne Trevino - ED Attending Attestation I have performed the following: I have examined & evaluated the patient, The case was reviewed & discussed with the resident, I agree w/resident's findings & plan - HPI HPI: 09/25/18 04:44 27-year-old female with elevated blood sugar and history of type 1 diabetes. - Physicial Exam PE: 09/25/18 04:45 agree with resident exam - Medical Decision Making 09/25/18 04:45 27-year-old female with limited blood sugar Patient became agitated in the emergency department, she continued to argue with her significant other who is at the bedside Patient stated she wanted to go home because she had an appointment with her psychiatric specialist in the morning She did sign out AGAINST MEDICAL ADVICE and was made aware that her workup was incomplete She was alert and oriented times foreign was able to make decisions on her own She did verbalize the understanding of the importance for follow-up
[2018-09-25] MEDS ORDERED: SODIUM CHLORIDE 1,000 ML IV STA (01:50)
--- NOTE | 2018-09-25 01:50 | PDOC ---
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 Per EMS, her glucose was over 500. She reports that she was not responding appropriately to her mother, but she "came to" as soon as EMS arrived. Ms Iyer is a poor historian and denies any symptoms. She states that she does take insulin but "the sticker fell off because [she] was sweating " and she did not have any additional medication at home. She additionally states that her glucose is "always 300." She denies any abdominal pain, fever, urinary symptoms, nausea, or vomiting. It is unclear whether she has been taking the remainder of her medications. Past History - Past Medical History Allergies/Adverse Reactions: Allergies Allergy/AdvReac Type Severity Reaction Status Date / Time mushroom Allergy Verified 09/20/18 21:16 No Known Drug Allergies Allergy Verified 09/20/18 21:16 SEAFOOD Allergy Severe ANAPHYLAXIS Uncoded 09/20/18 21:16 Home Medications: Ambulatory Orders Quetiapine Fumarate [Seroquel] 100 tab PO HS 02/17/17 Divalproex *ER* [Depakote *ER* -] 500 mg PO BID 10/31/17 Albuterol Sulfate Inhaler - [Ventolin Hfa Inhaler -] 2 inh PO Q4H PRN 02/17/18 Phenytoin Na Extended [Dilantin -] 100 mg PO BID #30 capsule 02/18/18 Fluoxetine HCl [Prozac] 40 mg PO DAILY 08/30/18 Insulin Lispro Protamin/Lispro [Humalog Mix 75-25 Kwikpen] 0 unit SQ BID Nitrofurantoin Macrocrystal [Nitrofurantoin] 100 mg PO Q12H #10 capsule Anemia: No Asthma: Yes Cancer: No Cardiac Disorders: Yes (RAPID HEARTBEAT HX) CVA: No COPD: No CHF: Yes Dementia: No Diabetes: (Yes; IDDM) GI Disorders: Yes (PANCREATITIS, DIVERTICULOSIS) Disorders: (YES; FREQUENT UTI'S) HTN: (LOW BP) Hypercholesterolemia: No Liver Disease: No Psychiatric Problems: Yes (anxiety, bipolar) Seizures: Yes Thyroid Disease: (Yes; HYPOTHYROIDISM, HYPOTENSION) - Surgical History Abdominal Surgery: No Appendectomy: No Cardiac Surgery: No Cholecystectomy: No Lung Surgery: No Neurologic Surgery: No Orthopedic Surgery: No - Family Disease History Family Disease History: Heart Disease: Grandparents - Reproductive History (#): 1 Para: 0 Cervical CA: No Dysfunctional Uterine Bleeding: No Ectopic : No Endometrial CA: No Polycystic Ovaries: No Therapeutic (s) & number: No Tubal Ligation: No Spontaneous : 1 - Immunization History Immunization Up to Date: Yes - Suicide/Smoking/Psychosocial Hx Smoking Status: Yes Smoking History: Unknown if ever smoked Have you smoked in the past 12 months: No Number of Cigarettes Smoked Daily: 1 If you are a former smoker, when did you quit?: 2011 'Breaking Loose' booklet given: 03/11/12 Hx Alcohol Use: No Drug/Substance Use Hx: No Substance Use Type: None Hx Substance Use Treatment: No Review of Systems - Review of Systems Comments:: General: No fevers, no chills, no weight or appetite change, no malaise HEENT: No changes in vision, no changes in hearing, no congestion, no sore throat CV: No chest pain, no palpitations, no LE edema Pulm: No SOB, no cough, no wheezing GI: No nausea or vomiting, no change in bowel habits, no melena : No frequency, no urgency, no dysuria Musc: No back pain, no joint swelling, no recent injury Skin: No rash, no lesions, no erythema Endo: No excessive thirst, no heat/cold intolerance Heme: No unusual bruising or bleeding, no swollen glands Neuro: No syncope, no numbness/tingling, no focal weakness Vasc: No claudication Psych: No recent change in mood, no SI or HI *Physical Exam - Physical Exam Comments: General: Comfortable, no acute distress HEENT: PERRL, EOMI, MMM, voice normal Cards: RRR, no murmur appreciated Pulm: Comfortable on room air, clear to auscultation bilaterally Abd: Soft, nontender, nondistended : No CVA tenderness Ext: Atraumatic. No LE edema. 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 She states that her medication patch fell off and she did not have any more at home. - Benign exam, though hyperglycemic to 400 on initial fingerstick - Concerning for possible DKA - CBC, CMP, acetone, UA - 1L IVF started by EMS, may need additional fluids 09/25/18 02:59 - Patient requesting to leave AMA. States she has an appointment with her PMD in the morning. Advised her to remain for the lab results. Discussed risks of leaving without completing her evaluation, including DKA and . Pt states understanding, still requesting to leave. - Labs not yet resulted - Will sign AMA paperwork. Discussed with Dr Fabian. Adrianne Trevino PGY1 *DC/Admit/Observation/Transfer Diagnosis at time of Disposition: Hyperglycemia - Discharge Dispostion Disposition: AGAINST MEDICAL ADVICE Condition at time of disposition: Fair Decision to Admit order: No - Prescriptions Prescriptions: Nitrofurantoin Macrocrystal [Nitrofurantoin] 100 mg PO Q12H #10 capsule - Referrals Referrals: Del Daigle [Non Staff, Medical] - - Patient Instructions Printed Discharge Instructions: DI for Hyperglycemia -- Adult Additional Instructions: Discharge Instructions: You were seen in the emergency department for high blood sugar. You were found to have a urinary tract infection. You have been prescribed antibiotics. They were sent to your pharmacy. Please take them twice daily until the prescription is completed. You declined to complete your medical evaluation. Please make sure you go to your previously schedule appointment with your regular doctor tomorrow. Continue to take all of your regular medications as prescribed Seek immediate medical care if you have any medical emergency. - Post Discharge Activity
[2018-09-25 02:34] LABS: EPI CELLS 1.7 /HPF (0-5/HPF); HYALINE CASTS 0 /lpf (0-8); PH,URINE 6.5 (5.0-8.0); URINE APPEARANCE CLEAR; URINE BILIRUBIN NEGATIVE (NEGATIVE); URINE COLOR YELLOW; URINE GLUCOSE (UA) 3+ (NEGATIVE); URINE KETONE NEGATIVE (NEGATIVE); URINE LEUK ESTERASE 2+ (NEGATIVE); URINE NITRITE NEGATIVE (NEGATIVE); URINE PROTEIN NEGATIVE (NEGATIVE); URINE RBC 3 /hpf (0-4); URINE WBC 190 /hpf (0-5)
[2018-09-25 02:42] VITALS: TEMP 98.4; BMI 31.9
[2018-09-25 03:13] LABS: BASO % 0.6 % (0-2.0); EOS % 1.4 % (0-4.5); HEMATOCRIT 36.3 % (32.4-45.2); HEMOGLOBIN 12.6 GM/dL (10.7-15.3); LYMPH % 40.1 % (8-40); MCH 29.4 pg (25.7-33.7); MCHC 34.8 g/dl (32.0-36.0); MEAN CELL VOLUME 84.6 fl (80-96); MEAN PLT VOLUME 8.5 fl (7.5-11.1); MONO % 5.8 % (3.8-10.2); NEUT % 52.1 % (42.8-82.8); PLATELET COUNT 195 K/MM3 (134-434); RDW 13.1 % (11.6-15.6); WHITE BLOOD COUNT 9.7 K/mm3 (4.0-10.0)
[2018-09-25 03:36] LABS: ALBUMIN 3.3 g/dl (3.4-5.0); BILIRUBIN,TOTAL 0.3 mg/dL (0.2-1); BLOOD UREA NITROGEN 9.7 mg/dL (7-18); CALCIUM 8.8 mg/dL (8.5-10.1); CREATININE 0.7 mg/dL (0.55-1.3); POTASSIUM 3.8 mmol/L (3.5-5.1)
[2018-09-25 03:55] VITALS: BP 113/64; PULSE 89
== END 2018-09-25 03:20 | disposition left against medical advice (07) ==
LOC: JER 01:24
PROC: 3E0337Z Introduction of Electrolytic and Water Balance Substance into Peripheral Vein, Percutaneous Approach (ICD-10-PCS; principal; 2018-09-25)
DX: E10.65 Type 1 diabetes mellitus with hyperglycemia (principal); Z79.4 Long term (current) use of insulin; E03.9 Hypothyroidism, unspecified; I95.9 Hypotension, unspecified; I50.9 Heart failure, unspecified; G40.909 Epilepsy, unspecified, not intractable, without status epilepticus; F41.9 Anxiety disorder, unspecified; F31.9 Bipolar disorder, unspecified; K86.9 Disease of pancreas, unspecified; Z87.440 Personal history of urinary (tract) infections
CPT/HCPCS: 36415; 80053; 81003; 82009; 82962; 85025; 87086; 99283-25; J7030

== ENCOUNTER 2018-09-25 19:16 | Emergency (ER) | payer OTHER ==
[2018-09-25 19:23] VITALS: BP 107/68; PULSE 68; BMI 31.1
[2018-09-25] MEDS ORDERED: SODIUM CHLORIDE 1,000 ML IV STA (19:23)
--- NOTE | 2018-09-25 19:23 | PDOC ---
Rapid Medical Evaluation Time Seen by Provider: 09/25/18 19:20 Medical Evaluation: Allergies Allergy/AdvReac Type Severity Reaction Status Date / Time mushroom Allergy Verified 09/20/18 21:16 No Known Drug Allergies Allergy Verified 09/20/18 21:16 SEAFOOD Allergy Severe ANAPHYLAXIS Uncoded 09/20/18 21:16 09/25/18 19:20 I have performed a brief in-person evaluation of this patient. The patient presents with a chief complaint of: hyperglycemia (408 with EMS) with feeling faint- left AMA earlier today Pertinent physical exam findings: VSS. AF. no focal findings. I have ordered the following: labs, urine, NS The patient will proceed to the ED for further evaluation. 09/25/18 19:22 Discharge Disposition - Diagnosis Chronic hyperglycemia - Referrals - Patient Instructions - Post Discharge Activity
== END 2018-09-25 20:47 | disposition left against medical advice (07) ==
LOC: JER 19:16
DX: R73.9 Hyperglycemia, unspecified (principal)
CPT/HCPCS: 99281-25

== ENCOUNTER 2018-10-09 19:53 | Emergency (ER) | payer OTHER ==
--- NOTE | 2018-10-09 19:59 | PDOC ---
Rapid Medical Evaluation Time Seen by Provider: 10/09/18 19:55 Medical Evaluation: Allergies Allergy/AdvReac Type Severity Reaction Status Date / Time mushroom Allergy Verified 09/25/18 19:23 No Known Drug Allergies Allergy Verified 09/25/18 19:23 SEAFOOD Allergy Severe ANAPHYLAXIS Uncoded 09/25/18 19:23 10/09/18 19:55 Pt c/o: decreased appetite x 3 weeks with nausea and upper abd pain Pt on brief exam: vss, ruq tendernes pt ordered for: labs, urine, ivf, zofran Pt to proceed to the ED Discharge Disposition - Diagnosis Abdominal pain, UTI (urinary tract infection) - Discharge Dispostion Disposition: HOME Condition at time of disposition: Stable - Prescriptions Prescriptions: Cephalexin [Keflex] 500 mg PO QID 7 Days #28 capsule - Referrals Referrals: Del Daigle [Primary Care Provider] - - Patient Instructions Printed Discharge Instructions: DI for Urinary Tract Infection (UTI) Additional Instructions: Please see your Primary Doctor within the next 48 hours. Have them repeat your blood work for lipase and potential pancreatitis. Continue taking your home dose medications as prescribed. Take over the counter NSAID medications for pain. Return to the ER for new or concerning symptoms including but not limited to: fevers, significant abdominal pain, inability to eat or drink. Thank you - Post Discharge Activity
[2018-10-09] MEDS ORDERED: ONDANSETRON 4 MG/2 ML VIAL IVPUSH ONE (20:00)
[2018-10-09] MEDS ORDERED: SODIUM CHLORIDE 1,000 ML IV STA (20:00)
[2018-10-09 20:12] VITALS: BP 102/65; PULSE 91; TEMP 98.9; BMI 31.0
--- NOTE | 2018-10-09 21:05 | PDOC ---
History of Present Illness - General Chief Complaint: Pain Stated Complaint: CHEST PAIN/RADIATING BACK PAIN Time Seen by Provider: 10/09/18 19:55 History Source: Patient Exam Limitations: No Limitations - History of Present Illness Initial Comments: 10/09/18 21:00 28 yo female pmh HTN, IDDM, chronic pancreatitis, and seizure disorder presents to the ED for 3 weeks of poor appetite central abdominal pain with radiation to her back and NB/NB vomiting. Pt states it feels like past pancreatitis episodes. Denies F/C, CP, SOB, changes in bowel or bladder habits. Pt states she does not have a Drum Sprayer or a GI doctor. Past History - Past Medical History Allergies/Adverse Reactions: Allergies Allergy/AdvReac Type Severity Reaction Status Date / Time mushroom Allergy Verified 10/09/18 20:10 No Known Drug Allergies Allergy Verified 10/09/18 20:10 SEAFOOD Allergy Severe ANAPHYLAXIS Uncoded 10/09/18 20:10 Home Medications: Ambulatory Orders Quetiapine Fumarate [Seroquel] 100 tab PO HS 02/17/17 Divalproex *ER* [Depakote *ER* -] 500 mg PO BID 10/31/17 Albuterol Sulfate Inhaler - [Ventolin Hfa Inhaler -] 2 inh PO Q4H PRN 02/17/18 Phenytoin Na Extended [Dilantin -] 100 mg PO BID #30 capsule 02/18/18 Fluoxetine HCl [Prozac] 40 mg PO DAILY 08/30/18 Insulin Lispro Protamin/Lispro [Humalog Mix 75-25 Kwikpen] 0 unit SQ BID Nitrofurantoin Macrocrystal [Nitrofurantoin] 100 mg PO Q12H #10 capsule Cephalexin [Keflex] 500 mg PO QID 7 Days #28 capsule 10/09/18 Anemia: No Asthma: Yes Cancer: No Cardiac Disorders: Yes (RAPID HEARTBEAT HX) CVA: No COPD: No CHF: Yes Dementia: No Diabetes: (Yes; IDDM) GI Disorders: Yes (PANCREATITIS, DIVERTICULOSIS) Disorders: (YES; FREQUENT UTI'S) HTN: (LOW BP) Hypercholesterolemia: No Liver Disease: No Psychiatric Problems: Yes (anxiety, bipolar) Seizures: Yes Thyroid Disease: (Yes; HYPOTHYROIDISM, HYPOTENSION) - Surgical History Abdominal Surgery: No Appendectomy: No Cardiac Surgery: No Cholecystectomy: No Lung Surgery: No Neurologic Surgery: No Orthopedic Surgery: No - Family Disease History Family Disease History: Heart Disease: Grandparents - Reproductive History (#): 1 Para: 0 Cervical CA: No Dysfunctional Uterine Bleeding: No Ectopic : No Endometrial CA: No Polycystic Ovaries: No Therapeutic (s) & number: No Tubal Ligation: No Spontaneous : 1 - Immunization History Immunization Up to Date: Yes - Suicide/Smoking/Psychosocial Hx Smoking Status: Yes Smoking History: Never smoked Have you smoked in the past 12 months: No Number of Cigarettes Smoked Daily: 1 If you are a former smoker, when did you quit?: 2011 'Breaking Loose' booklet given: 03/11/12 Hx Alcohol Use: No Drug/Substance Use Hx: No Substance Use Type: None Hx Substance Use Treatment: No Review of Systems - Review of Systems Constitutional: Yes: Loss of Appetite. No: Chills, Fever Respiratory: No: Shortness of Breath Cardiac (ROS): No: Chest Pain ABD/GI: Yes: Nausea, Vomiting, Other (central abdominal pain with radiation to the back). No: Constipated, Diarrhea : No: Burning, Dysuria, Frequency, Hematuria, Incontinence Musculoskeletal: Yes: Back Pain Neurological: No: Weakness *Physical Exam - Vital Signs Last Vital Signs Temp Pulse Resp BP Pulse Ox 98.9 F 91 H 18 102/65 100 10/09/18 20:04 10/09/18 20:04 10/09/18 20:04 10/09/18 20:04 10/09/18 20:04 - Physical Exam General Appearance: Yes: Nourished, Appropriately Dressed. No: Apparent Distress (pt on her phone in the room and ambulates without difficulty) HEENT: positive: EOMI Neck: positive: Supple. negative: Carotid bruit Respiratory/Chest: positive: Lungs Clear, Normal Breath Sounds. negative: Respiratory Distress, Labored Respiration, Crackles, Rhonchi, Stridor, Wheezing Cardiovascular: positive: Regular Rhythm, Regular Rate, S1, S2. negative: Edema , JVD, Murmur Vascular Pulses: Dorsalis-Pedis (R): 3+, Doralis-Pedis (L): 3+ Gastrointestinal/Abdominal: positive: Flat, Soft, Tenderness (central/ epigastric pain, neg murphys, neg mcburnys). negative: Protuberent, Distended, Guarding, Rebound Musculoskeletal: negative: CVA Tenderness Extremity: positive: Normal Capillary Refill, Normal Inspection Integumentary: positive: Normal Color, Dry, Warm Neurologic: positive: Fully Oriented, Alert Medical Decision Making - Medical Decision Making 10/09/18 21:15 28 yo female pmh HTN, IDDM, chronic pancreatitis, and seizure disorder presents to the ED for 3 weeks of poor appetite central abdominal pain with radiation to her back and dark vomiting. Pt states it feels like past pancreatitis episodes. Denies F/C, CP, SOB, changes in bowel or bladder habits. Pt states she does not have a Drum Sprayer or a GI doctor. Vitals wnl Pt AOX3, NAD, ambulates without difficulty, sitting up in bed texting during exam Will check labs including basics and lipase to assess pancreatitis, electrolyte abn, anemia, infection 10/09/18 23:26 UA shows 1+ leuks with WBCs Wilol treat as UTI, no F/C, no elevated WBC on CBC, no CVA tenderness Lipase mildly elevated. Not concerning for significant pancretitis attack, Recommend f/u with PCP and have lipase redrawn in 1 week Will treat with Keflex, PO challenge and DC home 10/09/18 23:42 Pt blood sugar elevated in the ED, states she has not been taking insulin because she has not been eating much but drank soda today. Pt will take insulin at home and checks her sugar frequently Pt safe for DC home *DC/Admit/Observation/Transfer Diagnosis at time of Disposition: Abdominal pain, UTI (urinary tract infection) - Discharge Dispostion Disposition: HOME Condition at time of disposition: Stable Decision to Admit order: No - Referrals Referrals: Del Daigle [Primary Care Provider] - - Patient Instructions Printed Discharge Instructions: DI for Urinary Tract Infection (UTI) Additional Instructions: Please see your Primary Doctor within the next 48 hours. Have them repeat your blood work for lipase and potential pancreatitis. Continue taking your home dose medications as prescribed. Take over the counter NSAID medications for pain. Return to the ER for new or concerning symptoms including but not limited to: fevers, significant abdominal pain, inability to eat or drink. Thank you - Post Discharge Activity
[2018-10-09] MEDS ORDERED: RANITIDINE HCL 150 MG TABLET (FP) PO ONE (21:14)
[2018-10-09] MEDS ORDERED: MAG HYDROX/AL HYDROX/SIMETH 30 ML UNIT-DOSE CUP PO ONE (21:14)
[2018-10-09] MEDS ORDERED: ONDANSETRON *ODT* 4 MG TABLET SL ONE (21:14)
--- NOTE | 2018-10-09 21:33 | PDOC ---
Documentation entered by Greta Fitzpatrick SCRIBE, acting as scribe for Keira Woods DO. Keira Woods, DO: This documentation has been prepared by the Amari ochoa Adrianna, SCRIBE, under my direction and personally reviewed by me in its entirety. I confirm that the documentation accurately reflects all work, treatment, procedures, and medical decision making performed by me. 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 Patient notes she has had a poor appetite, causing decreased PO. She endorses centralized abdominal pain that radiates to her back. Patient reports one episode of nausea and vomit (unsure if there was blood in her vomit). Patient states that this feels similar to her pancreatitis in the past. Allergies: Mushroom, seafood Surgical History: None reported Social History: Former smoker. Denies EtOH or illicit drug use PCP: Dr. Daigle - Physicial Exam PE: Constitutional: Awake, alert, oriented. No acute distress. Head: Normocephalic. Atraumatic Eyes: PERRL. EOMI. Conjunctivae are not pale. ENT: Mucous membranes are moist and intact. Posterior pharynx without exudates or erythema. Uvula midline. Neck: Supple. Full ROM. No lymphadenopathy. Cardiovascular: Regular rate. Regular rhythm. S1, S2 regular. Distal pulses are 2+ and symmetric. Pulmonary/Chest: No evidence of respiratory distress. Clear to auscultation bilaterally No wheezing, rales or rhonchi. Abdominal: Soft and nondistended. There is no tenderness. No rebound, guarding or rigidity. No organomegaly. No palpable masses. Good bowel sounds. Back: No CVA tenderness. Musculoskeletal: No edema. No cyanosis. No clubbing. Full range of motion in all extremities. No calf tenderness. Radial/pedal pulses are intact and 2+ bilaterally Skin: Skin is warm and dry. No petechiae. No purpura. Neurological: Alert and oriented to person, place, and time. Cranial nerves II -XII are grossly intact. Normal speech. Strength is grossly symmetric. No sensory deficits. Psychiatric: Good eye contact. Normal interaction, affect and behavior. - Medical Decision Making 10/09/18 21:31 I, Dr. Keira Woods, DO, attest that this document has been prepared under my direction and personally reviewed by me in its entirety. I further attest, that it accurately reflects all work, treatment, procedures and medical decision -making performed by me. 10/09/18 21:31 a/p: 28yo female with 3 weeks of epigastric pain that goes to her back -she feels it is similar to her pancreatitis she has had in the past -denies recent etoh use -denies new meds or drugs -abd is soft, nt -pt is in NAD playing on her ipad -will send labs including ua and lipase -will give gi cocktail for poss gastritis -will monitor and reassess 10/09/18 23:22 mildly elevated lipase pt resting comfortably in the bed uti - will start abx 10/09/18 23:40 pt has tolerated po ate and drank in the ED no vomiting or worsening pain no anion gap elevated glucose pt states she will take her insulin when she gets home will treat with keflex stable for dc to home and follow up with PMD
[2018-10-09 22:20] LABS: BASO % 0.5 % (0-2.0); EOS % 1.2 % (0-4.5); HEMATOCRIT 38.9 % (32.4-45.2); HEMOGLOBIN 13.5 GM/dL (10.7-15.3); LYMPH % 40.7 % (8-40); MCH 29.2 pg (25.7-33.7); MCHC 34.7 g/dl (32.0-36.0); MEAN CELL VOLUME 84.2 fl (80-96); MEAN PLT VOLUME 8.5 fl (7.5-11.1); MONO % 4.2 % (3.8-10.2); NEUT % 53.4 % (42.8-82.8); PLATELET COUNT 217 K/MM3 (134-434); RBC 4.62 M/mm3 (3.60-5.2); RDW 13.1 % (11.6-15.6); WHITE BLOOD COUNT 9.9 K/mm3 (4.0-10.0)
[2018-10-09 22:21] LABS: EPI CELLS 1.5 /HPF (0-5/HPF); HYALINE CASTS 1 /lpf (0-8); URINE APPEARANCE CLEAR; URINE BACTERIA 54.5 /hpf (NEGATIVE); URINE BILIRUBIN NEGATIVE (NEGATIVE); URINE COLOR YELLOW; URINE GLUCOSE (UA) 3+ (NEGATIVE); URINE KETONE 1+ (NEGATIVE); URINE LEUK ESTERASE 1+ (NEGATIVE); URINE NITRITE NEGATIVE (NEGATIVE); URINE PROTEIN NEGATIVE (NEGATIVE); URINE RBC 2 /hpf (0-4); URINE UROBILINOGEN 0.2 mg/dL (0.2-1.0); URINE WBC 62 /hpf (0-5)
[2018-10-09 22:36] LABS: MAGNESIUM 2.1 mg/dL (1.8-2.4)
[2018-10-09 22:48] LABS: ALBUMIN 3.7 g/dl (3.4-5.0); BILIRUBIN,TOTAL 0.4 mg/dL (0.2-1); BLOOD UREA NITROGEN 14.9 mg/dL (7-18); CALCIUM 9.4 mg/dL (8.5-10.1); CREATININE 0.7 mg/dL (0.55-1.3); TOT PROT 7.9 g/dl (6.4-8.2)
[2018-10-09] MEDS ORDERED: CEPHALEXIN MONOHYDRATE 500 MG CAPSULE (UD) PO ONE (23:28)
== END 2018-10-09 23:49 | disposition home or self-care (01) ==
LOC: JER 19:53
DX: N39.0 Urinary tract infection, site not specified (principal); R10.9 Unspecified abdominal pain; E11.9 Type 2 diabetes mellitus without complications; I50.9 Heart failure, unspecified; I11.0 Hypertensive heart disease with heart failure; G40.909 Epilepsy, unspecified, not intractable, without status epilepticus; F41.9 Anxiety disorder, unspecified; F31.9 Bipolar disorder, unspecified; J45.909 Unspecified asthma, uncomplicated; Z87.440 Personal history of urinary (tract) infections; Z91.013 Allergy to seafood; Z79.4 Long term (current) use of insulin
CPT/HCPCS: 36415; 80053; 81003; 83605; 83690; 83735; 84703; 85025; 87086; 99282-25

== ENCOUNTER → 2018-10-28 | Emergency (ER) | payer OTHER | LOC: JER 18:24 ==

== ENCOUNTER 2018-10-30 18:38 | Emergency (ER) | payer OTHER ==
--- NOTE | 2018-10-30 18:51 | PDOC ---
Rapid Medical Evaluation Time Seen by Provider: 10/30/18 18:49 Medical Evaluation: Allergies Allergy/AdvReac Type Severity Reaction Status Date / Time mushroom Allergy Verified 10/28/18 18:27 No Known Drug Allergies Allergy Verified 10/28/18 18:27 SEAFOOD Allergy Severe ANAPHYLAXIS Uncoded 10/28/18 18:27 10/30/18 18:50 HPI: Abdominal pain x1 day worse with movement PE: No gross deficits ORDERS: Belly labs Discharge Disposition - Diagnosis Abdominal pain - Referrals - Patient Instructions - Post Discharge Activity
[2018-10-30 18:57] VITALS: BMI 31.0
[2018-10-30] MEDS ORDERED: ONDANSETRON 4 MG/2 ML VIAL IVPUSH ONE (19:18)
[2018-10-30] MEDS ORDERED: ONDANSETRON 4 MG/2 ML VIAL ONE (19:23)
--- NOTE | 2018-10-30 19:31 | PDOC ---
History of Present Illness - General Chief Complaint: Pain, Acute Stated Complaint: ABD PAIN Time Seen by Provider: 10/30/18 18:49 - History of Present Illness Initial Comments: 10/30/18 19:27 CHIEF COMPLAINT: RLQ pain HISTORY OF PRESENT ILLNESS: 28 yo F with hx of IDDM, CHF, pancreatitis, asthma, and seizure disorder presents to ED with RLQ pain since this afternoon. Patient reports nausea this morning but denies any vomiting. Denies diarrhea, constipation. Last BM last night. LMP October 13. Patient reports yellow vaginal discharge, urinary frequency, and burning with urination. No recent travel or sick contacts. PAST MEDICAL HISTORY: as per HPI FAMILY HISTORY: Denies SOCIAL HISTORY: Denies tobacco, alcohol, illicit drug use. SURGICAL HISTORY: Denies ALLERGIES: mushrooms, seafood, tomatoes, peaches, oranges REVIEW OF SYSTEMS General/Constitutional: Denies fever or chills. Denies weakness, weight change. HEENT: Denies change in vision. Denies ear pain or discharge. Denies sore throat. Cardiovascular: Denies chest pain or shortness of breath. Respiratory: Denies cough, wheezing, or hemoptysis. Gastrointestinal: Nausea this morning. Denies vomiting, diarrhea or constipation. Denies rectal bleeding. Genitourinary: yellow vaginal discharge, urinary frequency, and burning with urination. Musculoskeletal: Denies joint or muscle swelling or pain. Denies neck or back pain. Skin and breasts: Denies rash or easy bruising. Neurologic: Denies headache, vertigo, loss of consciousness, or loss of sensation. PHYSICAL EXAM General Appearance: Well-appearing, appropriately dressed. No apparent distress. HEENT: EOMI, PERRLA, normal ENT inspection, normal voice, TMs normal, pharynx normal. No conjunctival pallor. No photophobia, scleral icterus. Neck: Supple. Trachea midline. No tenderness, rigidity, carotid bruit, stridor , lymphadenopathy, or thyromegaly. Respiratory/Chest: Lungs CTAB. No shortness of breath, chest tenderness, respiratory distress, accessory muscle use. No crackles, rales, rhonchi, stridor , wheezing, dullness Cardiovascular: RRR. S1, S2. No JVD, murmur, bradycardia, tachycardia. Vascular Pulses: Dorsalis-Pedis (R): 2+, Dorsalis-Pedis (L): 2+ Gastrointestinal/Abdominal: Normal bowel sounds. Abdomen soft, non-distended. No tenderness or rebound tenderness. No organomegaly, pulsatile mass, guarding , hernia, hepatomegaly, splenomegaly. Pelvic: External genitalia normal without lesions. Vaginal vault with foul smelling, yellow discharge. Cervix is long and closed. +CMT Uterus is nontender and normal in size. R adnexal tenderness Lymphatic: No adenopathy, tenderness. Musculoskeletal/Extremities: Normal inspection. FROM of all extremities, normal capillary refill. Pelvis Stable. No CVA tenderness. No tenderness to extremities, pedal edema, swelling, erythema or deformity. Integumentary: Appropriate color, dry, warm. No cyanosis, erythema, jaundice or rash Neurologic: accounts payable manager II-XII intact. Fully oriented, alert. Appropriate mood/affect. Motor strength 5/5. No appreciable EOM palsy, facial droop or sensory deficit. 10/30/18 22:21 Past History - Past Medical History Allergies/Adverse Reactions: Allergies Allergy/AdvReac Type Severity Reaction Status Date / Time mushroom Allergy Verified 10/30/18 18:51 No Known Drug Allergies Allergy Verified 10/30/18 18:51 SEAFOOD Allergy Severe ANAPHYLAXIS Uncoded 10/30/18 18:51 Home Medications: Ambulatory Orders Quetiapine Fumarate [Seroquel] 100 tab PO HS 02/17/17 Divalproex *ER* [Depakote *ER* -] 500 mg PO BID 10/31/17 Albuterol Sulfate Inhaler - [Ventolin Hfa Inhaler -] 2 inh PO Q4H PRN 02/17/18 Phenytoin Na Extended [Dilantin -] 100 mg PO BID #30 capsule 02/18/18 Fluoxetine HCl [Prozac] 40 mg PO DAILY 08/30/18 Insulin Lispro Protamin/Lispro [Humalog Mix 75-25 Kwikpen] 0 unit SQ BID Nitrofurantoin Macrocrystal [Nitrofurantoin] 100 mg PO Q12H #10 capsule Cephalexin [Keflex] 500 mg PO QID 7 Days #28 capsule 10/09/18 Anemia: No Asthma: Yes Cancer: No Cardiac Disorders: Yes (RAPID HEARTBEAT HX) CVA: No COPD: No CHF: Yes Dementia: No Diabetes: (Yes; IDDM) GI Disorders: Yes (PANCREATITIS, DIVERTICULOSIS) Disorders: (YES; FREQUENT UTI'S) HTN: (LOW BP) Hypercholesterolemia: No Liver Disease: No Psychiatric Problems: Yes (anxiety, bipolar) Seizures: Yes Thyroid Disease: (Yes; HYPOTHYROIDISM, HYPOTENSION) - Surgical History Abdominal Surgery: No Appendectomy: No Cardiac Surgery: No Cholecystectomy: No Lung Surgery: No Neurologic Surgery: No Orthopedic Surgery: No - Family Disease History Family Disease History: Heart Disease: Grandparents - Reproductive History (#): 1 Para: 0 Cervical CA: No Dysfunctional Uterine Bleeding: No Ectopic : No Endometrial CA: No Polycystic Ovaries: No Therapeutic (s) & number: No Tubal Ligation: No Spontaneous : 1 - Immunization History Immunization Up to Date: Yes - Suicide/Smoking/Psychosocial Hx Smoking Status: Yes Smoking History: Never smoked Have you smoked in the past 12 months: No Number of Cigarettes Smoked Daily: 1 If you are a former smoker, when did you quit?: 2011 Information on smoking cessation initiated: No 'Breaking Loose' booklet given: 03/11/12 Hx Alcohol Use: No Drug/Substance Use Hx: No Substance Use Type: None Hx Substance Use Treatment: No Abd/GI Specific PMHX - Complaint Specific PMHX Pancreatitis: Yes *Physical Exam - Vital Signs Last Vital Signs Temp Pulse Resp BP Pulse Ox 98.8 F 96 H 17 119/66 98 10/30/18 18:51 10/30/18 18:51 10/30/18 18:51 10/30/18 18:51 10/30/18 18:51 ED Treatment Course - LABORATORY CBC & Chemistry Diagram: 10/30/18 19:30 10/30/18 19:30 Medical Decision Making - Medical Decision Making 10/30/18 19:31 28 yo F with hx of IDDM, CHF, pancreatitis, asthma, and seizure disorder presents to ED with RLQ pain since this afternoon. -labs, urine 10/30/18 22:21 Pelvic exam concerning for PID given marked yellow/green discharge and +CMT with R adnexal tenderness. Will treat with azithromycin/ceftriaxone. Advised patient to take medication as prescribed and follow up with OB within the next week. Advised patient of signs and symptoms for return to ED. Patient verbalized understanding and agrees to plan. *DC/Admit/Observation/Transfer Diagnosis at time of Disposition: Pelvic inflammatory disease - Discharge Dispostion Disposition: HOME Condition at time of disposition: Stable Decision to Admit order: No - Referrals Referrals: Del Daigle [Primary Care Provider] - Milton Kaye MD [Staff Physician] - - Patient Instructions Printed Discharge Instructions: DI for Pelvic Inflammatory Disease Additional Instructions: Please follow up with OBGYN within the next week. If you develop fever, vomiting, diarrhea, or any new or worsening symptoms, please return to the ER. - Post Discharge Activity
[2018-10-30 19:47] LABS: BASO % 1.4 % (0-2.0); EOS % 2.7 % (0-4.5); HEMATOCRIT 37.1 % (32.4-45.2); HEMOGLOBIN 12.8 GM/dL (10.7-15.3); LYMPH % 39.4 % (8-40); MCH 29.5 pg (25.7-33.7); MCHC 34.5 g/dl (32.0-36.0); MEAN CELL VOLUME 85.5 fl (80-96); MEAN PLT VOLUME 8.2 fl (7.5-11.1); MONO % 6.1 % (3.8-10.2); NEUT % 50.4 % (42.8-82.8); PLATELET COUNT 232 K/MM3 (134-434); RBC 4.34 M/mm3 (3.60-5.2); RDW 12.8 % (11.6-15.6); WHITE BLOOD COUNT 10.1 K/mm3 (4.0-10.0)
[2018-10-30 19:52] VITALS: BP 106/60; PULSE 94; TEMP 99.3
[2018-10-30 20:01] LABS: EPI CELLS 1.2 /HPF (0-5/HPF); HYALINE CASTS 0 /lpf (0-8); URINE APPEARANCE CLEAR; URINE BACTERIA 18.3 /hpf (NEGATIVE); URINE BILIRUBIN NEGATIVE (NEGATIVE); URINE COLOR YELLOW; URINE GLUCOSE (UA) 3+ (NEGATIVE); URINE KETONE NEGATIVE (NEGATIVE); URINE LEUK ESTERASE TRACE (NEGATIVE); URINE NITRITE NEGATIVE (NEGATIVE); URINE PROTEIN NEGATIVE (NEGATIVE); URINE RBC 0 /hpf (0-4); URINE UROBILINOGEN 0.2 mg/dL (0.2-1.0); URINE WBC 15 /hpf (0-5)
[2018-10-30 20:07] LABS: ALBUMIN 3.4 g/dl (3.4-5.0); BILIRUBIN,TOTAL 0.3 mg/dL (0.2-1); CALCIUM 9.3 mg/dL (8.5-10.1); CREATININE 0.6 mg/dL (0.55-1.3); POTASSIUM 4.2 mmol/L (3.5-5.1); TOT PROT 7.3 g/dl (6.4-8.2)
[2018-10-30] MEDS ORDERED: KETOROLAC TROMETHAMINE 30 MG/1 ML VIAL IVPUSH ONE (20:48)
[2018-10-30] MEDS ORDERED: KETOROLAC TROMETHAMINE 30 MG/1 ML VIAL ONE (20:52)
[2018-10-30] MEDS ORDERED: AZITHROMYCIN 500 MG TABLET PO ONE (22:12)
--- NOTE | 2018-11-11 09:34 | EKG ---
Test Reason : Blood Pressure : / mmHG Vent. Rate : 088 BPM Atrial Rate : 088 BPM P-R Int : 176 ms QRS Dur : 092 ms QT Int : 370 ms P-R-T Axes : 068 076 062 degrees QTc Int : 447 ms NORMAL SINUS RHYTHM POSSIBLE LEFT ATRIAL ENLARGEMENT BORDERLINE ECG WHEN COMPARED WITH ECG OF 28-OCT-2018 21:15, NO SIGNIFICANT CHANGE WAS FOUND Confirmed by Umer Antonio MD ([id number]) on 11/11/2018 9:33:47 AM Referred By: Confirmed By:Umer Antonio MD
== END 2018-10-30 22:44 | disposition home or self-care (01) ==
LOC: JER 18:38
PROC: 3E02329 Introduction of Other Anti-infective into Muscle, Percutaneous Approach (ICD-10-PCS; principal; 2018-10-30)
PROC: 3E033GC Introduction of Other Therapeutic Substance into Peripheral Vein, Percutaneous Approach (ICD-10-PCS; 2018-10-30)
DX: N73.9 Female pelvic inflammatory disease, unspecified (principal)
CPT/HCPCS: 36415; 80053; 81003; 83690; 84703; 85025; 87086; 87491; 87591; 93005; 93010; 99283-25

== ENCOUNTER 2018-12-31 13:23 | Emergency (ER) | payer OTHER ==
[2018-12-31 13:29] VITALS: BP 102/69; PULSE 85; TEMP 98.3; BMI 31.1
--- NOTE | 2018-12-31 13:30 | PDOC ---
Rapid Medical Evaluation Time Seen by Provider: 12/31/18 13:26 Medical Evaluation: Allergies Allergy/AdvReac Type Severity Reaction Status Date / Time mushroom Allergy Verified 10/30/18 18:51 No Known Drug Allergies Allergy Verified 10/30/18 18:51 SEAFOOD Allergy Severe ANAPHYLAXIS Uncoded 10/30/18 18:51 12/31/18 13:29 I have performed a brief in-person evaluation of this patient. The patient presents with a chief complaint of: abdominal pain Pertinent physical exam findings:stable and in NAD, non-focal I have ordered the following: urine The patient will proceed to the ED for further evaluation.
[2018-12-31 14:29] LABS: EPI CELLS 2.1 /HPF (0-5/HPF); HYALINE CASTS 3 /lpf (0-8); URINE APPEARANCE CLEAR; URINE BACTERIA 10.3 /hpf (NEGATIVE); URINE BILIRUBIN NEGATIVE (NEGATIVE); URINE COLOR ORANGE; URINE GLUCOSE (UA) 3+ (NEGATIVE); URINE KETONE NEGATIVE (NEGATIVE); URINE LEUK ESTERASE NEGATIVE (NEGATIVE); URINE NITRITE NEGATIVE (NEGATIVE); URINE PROTEIN NEGATIVE (NEGATIVE); URINE RBC 569 /hpf (0-4); URINE UROBILINOGEN 0.2 mg/dL (0.2-1.0)
--- NOTE | 2018-12-31 14:44 | PDOC ---
History of Present Illness - General Chief Complaint: Pain, Acute Stated Complaint: BURNING URINATION/PAIN Time Seen by Provider: 12/31/18 13:26 - History of Present Illness Initial Comments: 28-year-old female with dysuria over the last few months no systemic symptoms Past History - Past Medical History Allergies/Adverse Reactions: Allergies Allergy/AdvReac Type Severity Reaction Status Date / Time mushroom Allergy Verified 10/30/18 18:51 No Known Drug Allergies Allergy Verified 10/30/18 18:51 nut - unspecified Allergy Verified 12/31/18 13:29 peach Allergy Verified 12/31/18 13:29 tomato Allergy Verified 12/31/18 13:29 SEAFOOD Allergy Severe ANAPHYLAXIS Uncoded 10/30/18 18:51 Home Medications: Ambulatory Orders Quetiapine Fumarate [Seroquel -] 100 tab PO HS 02/17/17 Divalproex *ER* [Depakote *ER* -] 500 mg PO BID 10/31/17 Albuterol Sulfate Inhaler - [Ventolin Hfa Inhaler -] 2 inh PO Q4H PRN 02/17/18 Phenytoin Na Extended [Dilantin -] 100 mg PO BID #30 capsule 02/18/18 Fluoxetine HCl [Prozac] 40 mg PO DAILY 08/30/18 Insulin Lispro Protamin/Lispro [Humalog Mix 75-25 Kwikpen] 0 unit SQ BID Nitrofurantoin Macrocrystal [Nitrofurantoin] 100 mg PO Q12H #10 capsule Cephalexin [Keflex] 500 mg PO QID 7 Days #28 capsule 10/09/18 Cephalexin [Keflex] 500 mg PO QID 5 Days #20 capsule 12/31/18 Anemia: No Asthma: Yes Cancer: No Cardiac Disorders: Yes (RAPID HEARTBEAT HX) CVA: No COPD: No CHF: Yes Dementia: No Diabetes: (Yes; IDDM) GI Disorders: Yes (PANCREATITIS, DIVERTICULOSIS) Disorders: (YES; FREQUENT UTI'S) HTN: (LOW BP) Hypercholesterolemia: No Liver Disease: No Psychiatric Problems: Yes (anxiety, bipolar) Seizures: Yes Thyroid Disease: (Yes; HYPOTHYROIDISM, HYPOTENSION) - Surgical History Abdominal Surgery: No Appendectomy: No Cardiac Surgery: No Cholecystectomy: No Lung Surgery: No Neurologic Surgery: No Orthopedic Surgery: No - Reproductive History (#): 1 Para: 0 Cervical CA: No Dysfunctional Uterine Bleeding: No Ectopic : No Endometrial CA: No Polycystic Ovaries: No Therapeutic (s) & number: No Tubal Ligation: No Spontaneous : 1 - Immunization History Immunization Up to Date: Yes - Psycho Social/Smoking Cessation Hx Smoking Status: Yes Smoking History: Never smoked Have you smoked in the past 12 months: No Number of Cigarettes Smoked Daily: 1 If you are a former smoker, when did you quit?: 2011 'Breaking Loose' booklet given: 03/11/12 Hx Alcohol Use: No Drug/Substance Use Hx: No Substance Use Type: None Hx Substance Use Treatment: No Review of Systems - Review of Systems : Yes: Burning, Dysuria, Frequency. No: Discharge *Physical Exam - Vital Signs Last Vital Signs Temp Pulse Resp BP Pulse Ox 98.3 F 85 16 102/69 99 12/31/18 13:26 12/31/18 13:26 12/31/18 13:26 12/31/18 13:26 12/31/18 13:26 - Physical Exam Comments: 12/31/18 14:43 GENERAL: The patient is awake, alert, and fully oriented, in no acute distress. HEAD: Normal with no signs of trauma. EYES: sclera anicteric, conjunctiva clear. ENT: Ears normal NECK: Normal range of motion EXTREMITIES: Normal range of motion, no edema. No clubbing or cyanosis. No cords, erythema, or tenderness. NEUROLOGICAL: Cranial nerves II through XII grossly intact. Normal speech, normal gait. PSYCH: Normal mood, normal affect. SKIN: Warm, Dry, normal turgor, no rashes or lesions noted. ED Treatment Course - ADDITIONAL ORDERS Additional order review: Laboratory Results 12/31/18 12/31/18 14:00 14:00 Urine Color [place] Urine Appearance Clear Urine pH 5.0 Ur Specific [place] 1.040 H Urine Protein Negative Urine Glucose (UA) 3+ H Urine Ketones Negative Urine Blood 3+ H Urine Nitrite Negative Urine Bilirubin Negative Urine Urobilinogen 0.2 Ur Leukocyte Esterase Negative Urine RBC (Auto) 569 Urine Casts (Auto) 3 U Epithel Cells (Auto) 2.1 Urine Bacteria (Auto) 10.3 Urine HCG, Qual Negative Medical Decision Making - Medical Decision Making 12/31/18 14:43 Symptomatic for UTI questionable urine will treat with Keflex and PCP follow-up Discharge - Discharge Information Problems reviewed: Yes Clinical Impression/Diagnosis: Recurrent UTI Condition: Stable Disposition: HOME - Admission No - Additional Discharge Information Prescriptions: Cephalexin [Keflex] 500 mg PO QID 5 Days #20 capsule - Follow up/Referral Referrals: Del Daigle [Primary Care Provider] - - Patient Discharge Instructions Additional Instructions: Please take the antibiotics as directed. Return to the emergency room for worsening symptoms. Follow-up with your primary care physician in 1 to 2 days for further evaluation and treatment options. Please follow-up without fail. - Post Discharge Activity
== END 2018-12-31 15:06 | disposition home or self-care (01) ==
LOC: JERFT 13:23
DX: N39.0 Urinary tract infection, site not specified (principal); Z91.018 Allergy to other foods; J45.909 Unspecified asthma, uncomplicated; E11.9 Type 2 diabetes mellitus without complications; I50.9 Heart failure, unspecified; K92.9 Disease of digestive system, unspecified; F41.9 Anxiety disorder, unspecified; E07.9 Disorder of thyroid, unspecified; I95.9 Hypotension, unspecified
CPT/HCPCS: 81003; 84703; 87077; 87086; 99282-25

== ENCOUNTER 2019-01-15 20:12 | Emergency (ER) | payer OTHER ==
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
[2019-01-15 21:38] VITALS: BP 116/84; PULSE 81; TEMP 97.7; BMI 26.6
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
== END 2019-01-15 21:00 | disposition left against medical advice (07) ==
LOC: JER 20:12
DX: G40.909 Epilepsy, unspecified, not intractable, without status epilepticus (principal); E10.9 Type 1 diabetes mellitus without complications; Z79.4 Long term (current) use of insulin; I50.9 Heart failure, unspecified; I95.9 Hypotension, unspecified; J45.909 Unspecified asthma, uncomplicated; E03.9 Hypothyroidism, unspecified; F31.9 Bipolar disorder, unspecified; F41.9 Anxiety disorder, unspecified; Z87.19 Personal history of other diseases of the digestive system; Z91.018 Allergy to other foods; F17.210 Nicotine dependence, cigarettes, uncomplicated
CPT/HCPCS: 99281-25

== ENCOUNTER 2019-02-10 22:31 | Emergency (ER) | payer OTHER ==
[2019-02-10 22:58] VITALS: BP 98/65; PULSE 80; TEMP 98; BMI 26.6
== END 2019-02-11 | disposition left against medical advice (07) ==
LOC: JER 22:31
DX: Z53.21 Procedure and treatment not carried out due to patient leaving prior to being seen by health care provider (principal)
CPT/HCPCS: 99281-25

== ENCOUNTER 2019-02-16 12:31 | Emergency (ER) | payer OTHER ==
[2019-02-16 12:39] VITALS: BMI 31.1
--- NOTE | 2019-02-16 13:56 | PDOC ---
History of Present Illness - General Chief Complaint: Pain Stated Complaint: PAIN Time Seen by Provider: 02/16/19 13:23 History Source: Patient Exam Limitations: No Limitations Past History - Travel Traveled outside of the country in the last 30 days: No Close contact w/someone who was outside of country & ill: No - Past Medical History Allergies/Adverse Reactions: Allergies Allergy/AdvReac Type Severity Reaction Status Date / Time mushroom Allergy Verified 02/16/19 12:40 No Known Drug Allergies Allergy Verified 02/16/19 12:40 nut - unspecified Allergy Verified 02/16/19 12:40 peach Allergy Verified 02/16/19 12:40 tomato Allergy Verified 02/16/19 12:40 SEAFOOD Allergy Severe ANAPHYLAXIS Uncoded 02/16/19 12:40 Home Medications: Ambulatory Orders Quetiapine Fumarate [Seroquel -] 100 tab PO HS 02/17/17 Divalproex *ER* [Depakote *ER* -] 500 mg PO BID 10/31/17 Albuterol Sulfate Inhaler - [Ventolin Hfa Inhaler -] 2 inh PO Q4H PRN 02/17/18 Phenytoin Na Extended [Dilantin -] 100 mg PO BID #30 capsule 02/18/18 Fluoxetine HCl [Prozac] 40 mg PO DAILY 08/30/18 Insulin Lispro Protamin/Lispro [Humalog Mix 75-25 Kwikpen] 0 unit SQ BID Nitrofurantoin Macrocrystal [Nitrofurantoin] 100 mg PO Q12H #10 capsule Cephalexin [Keflex] 500 mg PO QID 7 Days #28 capsule 10/09/18 Cephalexin [Keflex] 500 mg PO QID 5 Days #20 capsule 12/31/18 Sulfamethoxazole/Trimethoprim [Bactrim Ds -] 1 tab PO BID #14 tablet 02/16/19 Anemia: No Asthma: Yes Cancer: No Cardiac Disorders: Yes (RAPID HEARTBEAT HX) CVA: No COPD: No CHF: Yes Dementia: No Diabetes: (Yes; IDDM) GI Disorders: Yes (PANCREATITIS, DIVERTICULOSIS) Disorders: (YES; FREQUENT UTI'S) HTN: (LOW BP) Hypercholesterolemia: No Liver Disease: No Psychiatric Problems: Yes (anxiety, bipolar) Seizures: Yes Thyroid Disease: (Yes; HYPOTHYROIDISM, HYPOTENSION) - Surgical History Abdominal Surgery: No Appendectomy: No Cardiac Surgery: No Cholecystectomy: No Lung Surgery: No Neurologic Surgery: No Orthopedic Surgery: No - Reproductive History (#): 1 Para: 0 Cervical CA: No Dysfunctional Uterine Bleeding: No Ectopic : No Endometrial CA: No Polycystic Ovaries: No Therapeutic (s) & number: No Tubal Ligation: No Spontaneous : 1 - Immunization History Immunization Up to Date: Yes - Psycho Social/Smoking Cessation Hx Smoking Status: Yes Smoking History: Never smoked Have you smoked in the past 12 months: No Number of Cigarettes Smoked Daily: 20 If you are a former smoker, when did you quit?: 2011 'Breaking Loose' booklet given: 03/11/12 Hx Alcohol Use: Yes Drug/Substance Use Hx: No Substance Use Type: None Hx Substance Use Treatment: No Review of Systems - Review of Systems Able to Perform ROS?: Yes Comments:: 02/16/19 16:16 CONSTITUTIONAL: Absent: fever, chills, diaphoresis, generalized weakness, malaise, loss of appetite HEENT: Absent: rhinorrhea, nasal congestion, throat pain, throat swelling, difficulty swallowing, mouth swelling, ear pain, eye pain, visual Changes CARDIOVASCULAR: Absent: chest pain, loss of consciousness, palpitations, irregular heart rate, peripheral edema RESPIRATORY: Absent: cough, shortness of breath, dyspnea with exertion, orthopnea, wheezing, stridor, hemoptysis GASTROINTESTINAL: Present: lower abdominal cramping Absent: abdominal pain, abdominal distension, nausea, vomiting, diarrhea, constipation, melena, hematochezia GENITOURINARY: Present: vaginal spotting Absent: dysuria, frequency, urgency, hesitancy, hematuria, flank pain, genital pain MUSCULOSKELETAL: Absent: myalgia, arthralgia, joint swelling SKIN: Absent: rash, itching, pallor NEUROLOGIC: Absent: headache, focal weakness or paresthesias, dizziness, unsteady gait, seizure, mental status changes, bladder or bowel incontinence PSYCHIATRIC: Absent: anxiety, depression, suicidal or homicidal ideation, hallucinations. Is the patient limited Turkmen proficient: No *Physical Exam - Vital Signs Last Vital Signs Temp Pulse Resp BP Pulse Ox 98 F 94 H 18 109/70 99 02/16/19 12:36 02/16/19 12:36 02/16/19 12:36 02/16/19 12:36 02/16/19 12:36 - Physical Exam 02/16/19 17:18 GENERAL: Well developed, well nourished. Awake and alert. No acute distress. HEENT: Normocephalic, atraumatic. PERRLA, EOMI. No conjunctival pallor. Sclera are non- icteric. Moist mucous membranes. Oropharynx is clear. NECK: Supple. Full ROM. No JVD. Carotid pulses 2+ and symmetric, without bruits. No thyromegaly. No lymphadenopathy. CARDIOVASCULAR: Regular rate and rhythm. No murmurs, rubs, or gallops. Distal pulses are 2+ and symmetric. PULMONARY: No evidence of respiratory distress. Lungs clear to auscultation bilaterally. No wheezing, rales or rhonchi. ABDOMINAL: TTP of the suprapubic area. Soft. Non-tender. Non-distended. No rebound or guarding. No organomegaly. Normoactive bowel sounds. MUSCULOSKELETAL Normal range of motion at all joints. No bony deformities or tenderness. No CVA tenderness. EXTREMITIES: No cyanosis. No clubbing. No edema. No calf tenderness. SKIN: Warm and dry. Normal capillary refill. No rashes. No jaundice. NEUROLOGICAL: Alert, awake, appropriate. Cranial nerves 2-12 intact. No deficits to light touch and temperature in face, upper extremities and lower extremities. No motor deficits in the in face, upper extremities and lower extremities. Normoreflexic in the upper and lower extremities. Normal speech. Toes are down- going bilaterally. Gait is normal without ataxia. PSYCHIATRIC: Cooperative. Good eye contact. Appropriate mood and affect. ED Treatment Course - LABORATORY CBC & Chemistry Diagram: 02/16/19 14:10 02/16/19 14:10 - RADIOLOGY Radiology Studies Ordered: Category Date Time Status TRANSVAGINAL US PREG [US] Stat Ultrasound 02/16/19 13:46 Ordered Medical Decision Making - Medical Decision Making 02/16/19 17:45 The patient is a 28-year-old female well-known to this emergency department past medical history of noncontrolled insulin-dependent diabetes, pancreatitis, seizure disorder, hypothyroidism, diverticulosis, bipolar presents to the ER today for evaluation of vaginal spotting. She states that she believes she is 10 weeks and had a positive urine test at home. She states that this morning she noted some blood on the toilet paper so she came to the ER for evaluation. She also admits to lower abdominal pain. Denies urinary symptoms, fever, vomiting, back pain. A/P: Vaginal spotting Patient denies vaginal exam. She does not want anything to "hurt the baby." Basic labs, transvaginal ultrasound ordered Beta hCG is less than 1, urine does not show . Transvaginal report shows no intrauterine Patient with UTI with 3+ leukocytes thousands of white blood cells and nitrite positive. Will treat with Bactrim at this time given patient's past sensitivities. Chart review shows blood type O positive Discharge home with CLAIM A[facility]ST follow-up. Patient informed of results. I discussed the physical exam findings, ancillary test results and final diagnoses with the patient. I answered all of the patient's questions. The patient was satisfied with the care received and felt comfortable with the discharge plan and treatment plan. The Patient agrees to follow up with the primary care physician/specialist within 24-72 hours. Return precautions were given. Discharge - Discharge Information Problems reviewed: Yes Clinical Impression/Diagnosis: Recurrent UTI Condition: Stable Disposition: HOME - Admission No - Additional Discharge Information Prescriptions: Sulfamethoxazole/Trimethoprim [Bactrim Ds -] 1 tab PO BID #14 tablet - Follow up/Referral Referrals: Del Daigle [Primary Care Provider] - Geovanna Alan MD [Staff Physician] - - Patient Discharge Instructions Patient Printed Discharge Instructions: DI for Urinary Tract Infection (UTI) Additional Instructions: You have a urinary tract infection. This caused by bacteria. Your blood work today was negative for Please drink plenty of fluids. Take your antibiotics as prescribed. Finish the entire dose even if you feel better. You may take Tylenol or Motrin as needed for pain. follow the dosing instruction on the bottle Please follow up with your primary care doctor this week. Return to the emergency department if you have fevers, chills, nausea, vomiting , back pain, or have any changes in your symptoms. - Post Discharge Activity Work/Back to School Note: Back to Work
[2019-02-16 14:14] LABS: HYALINE CASTS 4 /lpf (0-8); URINE APPEARANCE CLOUDY; URINE BACTERIA 4938.1 /hpf (NEGATIVE); URINE BILIRUBIN NEGATIVE (NEGATIVE); URINE COLOR YELLOW; URINE GLUCOSE (UA) 3+ (NEGATIVE); URINE KETONE TRACE (NEGATIVE); URINE LEUK ESTERASE 2+ (NEGATIVE); URINE NITRITE POSITIVE (NEGATIVE); URINE PROTEIN NEGATIVE (NEGATIVE); URINE RBC 6 /hpf (0-4); URINE UROBILINOGEN 0.2 mg/dL (0.2-1.0); URINE WBC 243 /hpf (0-5)
[2019-02-16 14:28] LABS: BASO % 0.5 % (0-2.0); EOS % 0.8 % (0-4.5); HEMATOCRIT 41.2 % (32.4-45.2); HEMOGLOBIN 13.8 GM/dL (10.7-15.3); LYMPH % 31.4 % (8-40); MCH 28.2 pg (25.7-33.7); MCHC 33.4 g/dl (32.0-36.0); MEAN CELL VOLUME 84.6 fl (80-96); MEAN PLT VOLUME 8.3 fl (7.5-11.1); MONO % 4.8 % (3.8-10.2); NEUT % 62.5 % (42.8-82.8); PLATELET COUNT 219 K/MM3 (134-434); RBC 4.87 M/mm3 (3.60-5.2); RDW 13.1 % (11.6-15.6); WHITE BLOOD COUNT 9.7 K/mm3 (4.0-10.0)
[2019-02-16 14:57] LABS: ALBUMIN 3.4 g/dl (3.4-5.0); ALK PHOS 101 U/L (45-117); ANION GAP 8 MMOL/L (8-16); BILIRUBIN,TOTAL 0.6 mg/dL (0.2-1); CALCIUM 9.3 mg/dL (8.5-10.1); CHLORIDE 106 mmol/L (98-107); CO2 24 mmol/L (21-32); CREATININE 0.6 mg/dL (0.55-1.3); GLUCOSE,RANDOM 310 mg/dL (74-106); POTASSIUM 4.1 mmol/L (3.5-5.1); SGOT/AST 14 U/L (15-37); SGPT/ALT 18 U/L (13-61); SODIUM 138 mmol/L (136-145); TOT PROT 7.4 g/dl (6.4-8.2)
[2019-02-16 15:57] VITALS: BP 112/74; PULSE 82; TEMP 97.8
== END 2019-02-16 15:57 | disposition home or self-care (01) ==
LOC: JER 12:31
DX: N39.0 Urinary tract infection, site not specified (principal); B96.89 Other specified bacterial agents as the cause of diseases classified elsewhere; Z87.440 Personal history of urinary (tract) infections; E10.9 Type 1 diabetes mellitus without complications; I50.9 Heart failure, unspecified; Z79.4 Long term (current) use of insulin; F31.9 Bipolar disorder, unspecified; F41.9 Anxiety disorder, unspecified; E03.9 Hypothyroidism, unspecified; I95.9 Hypotension, unspecified; J45.909 Unspecified asthma, uncomplicated; Z87.19 Personal history of other diseases of the digestive system; Z86.79 Personal history of other diseases of the circulatory system; Z91.013 Allergy to seafood; Z91.018 Allergy to other foods
CPT/HCPCS: 36415; 76817-TC; 80053; 81003; 84702; 84703; 85025; 86850; 86900; 86901; 87086; 87186; 99283-25

== ENCOUNTER 2019-03-05 23:41 | Emergency (ER) | payer OTHER ==
[2019-03-06 00:53] VITALS: TEMP 97.9; BMI 31.1
[2019-03-06 02:16] LABS: EPI CELLS 1.1 /HPF (0-5/HPF); HYALINE CASTS 0 /lpf (0-8); PH,URINE 7.5 (5.0-8.0); URINE APPEARANCE CLEAR; URINE BACTERIA 70.2 /hpf (NEGATIVE); URINE BILIRUBIN NEGATIVE (NEGATIVE); URINE COLOR YELLOW; URINE GLUCOSE (UA) 3+ (NEGATIVE); URINE KETONE NEGATIVE (NEGATIVE); URINE LEUK ESTERASE TRACE (NEGATIVE); URINE NITRITE NEGATIVE (NEGATIVE); URINE PROTEIN NEGATIVE (NEGATIVE); URINE RBC 0 /hpf (0-4); URINE UROBILINOGEN 0.2 mg/dL (0.2-1.0); URINE WBC 30 /hpf (0-5)
--- NOTE | 2019-03-06 02:47 | PDOC ---
History of Present Illness - General Chief Complaint: Pain Stated Complaint: STOMACH PAIN Time Seen by Provider: 03/06/19 00:34 - History of Present Illness Initial Comments: 03/08/19 22:13 28F PMH IDDM, CHF, BPD BIBEMS c/o 3 days of RUQ pain w/ radiation to the right flank and chest. Pain is colicky, not associated with food intake + nausea, loss of appetite x months, early satiety x months, 15lb unintentional weight loss - vomiting, sick contacts, recent abx, recent travel, GI surgery denies etoh h/o pancreatitis, states this pain is different than that. No h/o similar pain. LMP last week; no concern for PCP - Dr. Oxana COOK Past History - Past Medical History Allergies/Adverse Reactions: Allergies Allergy/AdvReac Type Severity Reaction Status Date / Time mushroom Allergy Verified 02/16/19 12:40 No Known Drug Allergies Allergy Verified 02/16/19 12:40 nut - unspecified Allergy Verified 02/16/19 12:40 peach Allergy Verified 02/16/19 12:40 tomato Allergy Verified 02/16/19 12:40 SEAFOOD Allergy Severe ANAPHYLAXIS Uncoded 02/16/19 12:40 Home Medications: Ambulatory Orders Quetiapine Fumarate [Seroquel -] 100 tab PO HS 02/17/17 Divalproex *ER* [Depakote *ER* -] 500 mg PO BID 10/31/17 Albuterol Sulfate Inhaler - [Ventolin Hfa Inhaler -] 2 inh PO Q4H PRN 02/17/18 Phenytoin Na Extended [Dilantin -] 100 mg PO BID #30 capsule 02/18/18 Fluoxetine HCl [Prozac] 40 mg PO DAILY 08/30/18 Insulin Lispro Protamin/Lispro [Humalog Mix 75-25 Kwikpen] 0 unit SQ BID Nitrofurantoin Macrocrystal [Nitrofurantoin] 100 mg PO Q12H #10 capsule Cephalexin [Keflex] 500 mg PO QID 7 Days #28 capsule 10/09/18 Cephalexin [Keflex] 500 mg PO QID 5 Days #20 capsule 12/31/18 Sulfamethoxazole/Trimethoprim [Bactrim Ds -] 1 tab PO BID #14 tablet 02/16/19 Ciprofloxacin [Cipro -] 500 mg PO Q12H #19 tablet 03/06/19 Anemia: No Asthma: Yes Cancer: No Cardiac Disorders: Yes (RAPID HEARTBEAT HX) CVA: No COPD: No CHF: Yes Dementia: No Diabetes: (Yes; IDDM) GI Disorders: Yes (PANCREATITIS, DIVERTICULOSIS) Disorders: (YES; FREQUENT UTI'S) HTN: (LOW BP) Hypercholesterolemia: No Liver Disease: No Psychiatric Problems: Yes (anxiety, bipolar) Seizures: Yes Thyroid Disease: (Yes; HYPOTHYROIDISM, HYPOTENSION) - Surgical History Abdominal Surgery: No Appendectomy: No Cardiac Surgery: No Cholecystectomy: No Lung Surgery: No Neurologic Surgery: No Orthopedic Surgery: No - Reproductive History (#): 1 Para: 0 Cervical CA: No Dysfunctional Uterine Bleeding: No Ectopic : No Endometrial CA: No Polycystic Ovaries: No Therapeutic (s) & number: No Tubal Ligation: No Spontaneous : 1 - Immunization History Immunization Up to Date: Yes - Psycho Social/Smoking Cessation Hx Smoking Status: Yes Smoking History: Never smoked Have you smoked in the past 12 months: No Number of Cigarettes Smoked Daily: 20 If you are a former smoker, when did you quit?: 2011 'Breaking Loose' booklet given: 03/11/12 Hx Alcohol Use: No Drug/Substance Use Hx: No Substance Use Type: None Hx Substance Use Treatment: No Review of Systems - Review of Systems Comments:: 03/08/19 22:14 ROS: CONSTITUTIONAL: Denies F / C HEENT: Denies headache, lightheadedness, dizziness, changes in vision / hearing RESP: Denies SOB CARD: Denies palpitations GI: Endorses RUQ abdominal pain and nausea. Endorses loss of appetite and early satiety. Denies V / D, bloody stool, inability to tolerate PO : Denies dysuria, hematuria, frequency SKIN: Denies rashes NEURO: Denies numbness, tingling, weakness. Endorses DM neuropathy pain of the LEs MSK: Denies back pain *Physical Exam - Vital Signs Last Vital Signs Temp Pulse Resp BP Pulse Ox 97.9 F 78 18 118/91 99 03/06/19 00:00 03/06/19 00:00 03/06/19 00:00 03/06/19 00:00 03/06/19 00:00 - Physical Exam 03/08/19 22:14 PE: GEN: NAD, comfortable. AAOx3 HEENT: NC/AT, EOMI, PERRLA. No facial asymmetry. Moist mucous membranes. Normal voice. Supple neck w/ FROM. CV: S1/S2, RRR, no m/r/g LUNG: CTAB, no wheezes, crackles, rales, rhonchi. GI: +TTP RUQ. mild TTP diffusely. No rebound, no guarding. Soft. +BS EXTREMITIES: No LE edema. No obvious deformities of all extremities. SKIN: warm, dry, normal turgor PSYCH: Odd labile affect NEURO: Moving all extremities well. Ambulating with normal gait. ED Treatment Course - LABORATORY CBC & Chemistry Diagram: 03/06/19 02:30 03/06/19 02:30 - ADDITIONAL ORDERS Additional order review: Laboratory Results 03/06/19 01:35 Urine Color Yellow Urine Appearance Clear Urine pH 7.5 D Ur Specific [place] 1.029 Urine Protein Negative Urine Glucose (UA) 3+ H Urine Ketones Negative Urine Blood Negative Urine Nitrite Negative Urine Bilirubin Negative Urine Urobilinogen 0.2 Ur Leukocyte Esterase Trace Urine WBC (Auto) 30 Urine RBC (Auto) 0 Urine Casts (Auto) 0 U Epithel Cells (Auto) 1.1 Urine Bacteria (Auto) 70.2 - RADIOLOGY Radiology Studies Ordered: Category Date Time Status SPIRAL- RENAL-STONE CT [CT] Stat CT Scan 03/06/19 01:53 Ordered CXRPORT [CHEST X-RAY PORTABLE*] [RAD] Stat Radiology 03/06/19 01:12 Taken Medical Decision Making - Medical Decision Making 03/06/19 02:33 MDM: 28F BIBEMS c/o RUQ pain w/ nausea in setting of early satiety and weight loss. DDx - likely biliary process; less likely PUD, colitis. Given hx consider ACS. Consider malignant process. - cbc, cmp, cardiac, lipase - UA, preg - POCUS GB - EKG, CXR POCUS GB by Dr. Mansfield unremarkable for cholecystitis; ?hydronephorosis Spiral CT Labs reviewed Spiral CT IOC Impression possible mesenteric adenitis Ciprofloxacin DC home w/ ciprofloxacin, GI and PCP f/u Discharge - Discharge Information Problems reviewed: Yes Clinical Impression/Diagnosis: Mesenteric adenitis Condition: Stable Disposition: HOME - Admission No - Additional Discharge Information Prescriptions: Ciprofloxacin [Cipro -] 500 mg PO Q12H #19 tablet - Follow up/Referral Referrals: Del Daigle [Primary Care Provider] - Sandip Fried MD [Staff Physician] - - Patient Discharge Instructions Patient Printed Discharge Instructions: DI for Abdominal Pain-Adult Additional Instructions: We sent antibiotics to your pharmacy, please pick them up and take as prescribed. It is a twice a day medication; you received your first dose in the Emergency Room. This medication may cause diarrhea as a normal side effect. Drink plenty of fluids. Follow up with your primary care doctor regarding your visit today in the next 5 days. Follow up with GI in the next 7 days regarding your symptoms. We have referred you to Dr. Fried who you can call and schedule an appointment with. Immediately return to the Emergency Department if you experience any worsening or concerning symptoms. - Post Discharge Activity
[2019-03-06] MEDS ORDERED: ACETAMINOPHEN 1000 MG/100 ML VIAL (NON FORMULARY) IVPB ONE (02:52)
--- NOTE | 2019-03-06 03:00 | PDOC ---
Attending Attestation - Resident Resident Name: Segundo Gonzalez - ED Attending Attestation I have performed the following: I have examined & evaluated the patient, The case was reviewed & discussed with the resident, I agree w/resident's findings & plan, Exceptions are as noted - HPI HPI: 03/06/19 05:44 See resident HPI - Physicial Exam PE: 03/06/19 05:44 Agree with exam as documented by resident - Medical Decision Making 03/06/19 05:45 Consider nuvia, nephrollithiasis, pancreatitis, less likely appy f/u labs, imaging analgesia re-eval Imaging possibly consistent with mesenteric adenitis cipro rx to pharmacy of choice dc
[2019-03-06] MEDS ORDERED: ACETAMINOPHEN INJECTION 100 ML IVPB ONE (03:01)
[2019-03-06 03:12] LABS: BASO % 0.7 % (0-2.0); EOS % 1.2 % (0-4.5); HEMATOCRIT 43.6 % (32.4-45.2); HEMOGLOBIN 14.7 GM/dL (10.7-15.3); LYMPH % 41.7 % (8-40); MCH 28.7 pg (25.7-33.7); MCHC 33.8 g/dl (32.0-36.0); MEAN CELL VOLUME 84.8 fl (80-96); MEAN PLT VOLUME 8.7 fl (7.5-11.1); MONO % 4.3 % (3.8-10.2); NEUT % 52.1 % (42.8-82.8); PLATELET COUNT 270 K/MM3 (134-434); RBC 5.13 M/mm3 (3.60-5.2); RDW 13.1 % (11.6-15.6); WHITE BLOOD COUNT 9.7 K/mm3 (4.0-10.0)
[2019-03-06 03:42] LABS: BILIRUBIN,TOTAL 0.5 mg/dL (0.2-1); BLOOD UREA NITROGEN 12.7 mg/dL (7-18); CALCIUM 9.8 mg/dL (8.5-10.1); CREATININE 0.6 mg/dL (0.55-1.3); POTASSIUM 4.2 mmol/L (3.5-5.1); TOT PROT 8.7 g/dl (6.4-8.2)
[2019-03-06] MEDS ORDERED: CIPROFLOXACIN 500 MG TABLET (RESTRICTED TO ID) PO ONE (04:49)
[2019-03-06 06:13] VITALS: BP 123/87; PULSE 76
--- NOTE | 2019-03-06 10:49 | EKG ---
Test Reason : Blood Pressure : / mmHG Vent. Rate : 077 BPM Atrial Rate : 077 BPM P-R Int : 178 ms QRS Dur : 080 ms QT Int : 384 ms P-R-T Axes : 063 063 055 degrees QTc Int : 434 ms NORMAL SINUS RHYTHM POSSIBLE LEFT ATRIAL ENLARGEMENT LOW VOLTAGE QRS INCOMPLETE RBBB WHEN COMPARED WITH ECG OF 30-OCT-2018 19:07, NO SIGNIFICANT CHANGE WAS FOUND Confirmed by ADRIAN NERI MD ([id number]) on 03/06/2019 10:49:12 AM Referred By: Confirmed By:ADRIAN NERI MD
== END 2019-03-06 06:10 | disposition home or self-care (01) ==
LOC: JER 23:41
PROC: 3E033NZ Introduction of Analgesics, Hypnotics, Sedatives into Peripheral Vein, Percutaneous Approach (ICD-10-PCS; principal; 2019-03-05)
DX: I88.0 Nonspecific mesenteric lymphadenitis (principal); E11.9 Type 2 diabetes mellitus without complications; Z79.4 Long term (current) use of insulin; E03.9 Hypothyroidism, unspecified; I95.9 Hypotension, unspecified; I50.9 Heart failure, unspecified; F31.9 Bipolar disorder, unspecified; F41.9 Anxiety disorder, unspecified; Z87.19 Personal history of other diseases of the digestive system; Z87.440 Personal history of urinary (tract) infections; Z87.09 Personal history of other diseases of the respiratory system
CPT/HCPCS: 36415; 71045-TC-FY; 74176-TC; 76705-TC; 80053; 81003; 82550; 83690; 84484; 84703; 85025; 93005; 93010; 99283-25; J0131

== ENCOUNTER 2019-03-09 19:16 | Emergency (ER) | payer OTHER ==
--- NOTE | 2019-03-09 19:27 | PDOC ---
Rapid Medical Evaluation Chief Complaint: Pain, Acute Time Seen by Provider: 03/09/19 19:26 Medical Evaluation: Allergies Allergy/AdvReac Type Severity Reaction Status Date / Time mushroom Allergy Verified 02/16/19 12:40 No Known Drug Allergies Allergy Verified 02/16/19 12:40 nut - unspecified Allergy Verified 02/16/19 12:40 peach Allergy Verified 02/16/19 12:40 tomato Allergy Verified 02/16/19 12:40 SEAFOOD Allergy Severe ANAPHYLAXIS Uncoded 02/16/19 12:40 03/09/19 19:27 I performed a brief in-person evaluation of this patient. 28-year-old female with BPD, chronic pancreatitis, frequent ED visits. Seen yesterday for RLQ pain, found on CT to have mesenteric adenitis. Tx with cipro. Returns today with persistent pain, also c/o migraine symptoms, stabbing chest pain. Pertinent physical exam findings: Alert, oriented, no distress. RLQ tenderness I have ordered the following: EKG Patient to proceed to ED for further evaluation Discharge Disposition - Diagnosis Abdominal pain - Referrals - Patient Instructions - Post Discharge Activity
[2019-03-09 19:30] VITALS: BP 116/71; PULSE 114; TEMP 97.9; BMI 31.1
--- NOTE | 2019-03-09 21:05 | PDOC ---
*Physical Exam - Vital Signs Last Vital Signs Temp Pulse Resp BP Pulse Ox 97.9 F 114 H 18 116/71 99 03/09/19 19:25 03/09/19 19:25 03/09/19 19:25 03/09/19 19:25 03/09/19 19:25 Medical Decision Making - Medical Decision Making 03/09/19 21:04 Patient seen by the advanced practice provider under my direct supervision. Ancillary testing reviewed as necessary. I agree with plan as outlined by the advanced practice provider. Discharge - Discharge Information Problems reviewed: Yes Clinical Impression/Diagnosis: Abdominal pain Qualifiers: Abdominal location: lower abdomen, unspecified Qualified Code(s): R10.30 - Lower abdominal pain, unspecified UTI (urinary tract infection) Qualifiers: Urinary tract infection type: acute cystitis Hematuria presence: without hematuria Qualified Code(s): N30.00 - Acute cystitis without hematuria - Additional Discharge Information Prescriptions: Cephalexin Monohydrate [Keflex -] 500 mg PO BID #20 capsule Ibuprofen 600 mg PO QID PRN #20 tablet PRN Reason: Pain - Follow up/Referral Referrals: Del Daigle [Primary Care Provider] - - Patient Discharge Instructions Patient Printed Discharge Instructions: Urinary Tract Infection Additional Instructions: Drink plenty of fluids Take ibuprofen every 6 hours as needed for pain Take cephalexin as prescribed Follow-up with your primary care doctor as soon as possible. You need to repeat urine test once your antibiotic is completed. We will call you if you're antibiotic needs to be changed. - Post Discharge Activity
--- NOTE | 2019-03-09 21:12 | PDOC ---
History of Present Illness - General Chief Complaint: Pain, Acute Stated Complaint: RT SIDE PAIN Time Seen by Provider: 03/09/19 19:26 History Source: Patient - History of Present Illness Initial Comments: 03/09/19 23:06 28-year-old female complaining of right-sided abdominal pain. Patient was seen in this ER 3 days ago was diagnosed with mesenteric adenitis. CT scan showed normal appendix. Patient denies any fever, nausea, vomiting, diarrhea. Patient reports that she has not taken anything for the pain at home. Reports not having Advil at home. Past History - Past Medical History Allergies/Adverse Reactions: Allergies Allergy/AdvReac Type Severity Reaction Status Date / Time mushroom Allergy Verified 03/09/19 19:30 No Known Drug Allergies Allergy Verified 03/09/19 19:30 nut - unspecified Allergy Verified 03/09/19 19:30 peach Allergy Verified 03/09/19 19:30 tomato Allergy Verified 03/09/19 19:30 SEAFOOD Allergy Severe ANAPHYLAXIS Uncoded 03/09/19 19:30 Home Medications: Ambulatory Orders Quetiapine Fumarate [Seroquel -] 100 tab PO HS 02/17/17 Divalproex *ER* [Depakote *ER* -] 500 mg PO BID 10/31/17 Albuterol Sulfate Inhaler - [Ventolin Hfa Inhaler -] 2 inh PO Q4H PRN 02/17/18 Phenytoin Na Extended [Dilantin -] 100 mg PO BID #30 capsule 02/18/18 Fluoxetine HCl [Prozac] 40 mg PO DAILY 08/30/18 Insulin Lispro Protamin/Lispro [Humalog Mix 75-25 Kwikpen] 0 unit SQ BID Nitrofurantoin Macrocrystal [Nitrofurantoin] 100 mg PO Q12H #10 capsule Cephalexin [Keflex] 500 mg PO QID 7 Days #28 capsule 10/09/18 Cephalexin [Keflex] 500 mg PO QID 5 Days #20 capsule 12/31/18 Sulfamethoxazole/Trimethoprim [Bactrim Ds -] 1 tab PO BID #14 tablet 02/16/19 Ciprofloxacin [Cipro -] 500 mg PO Q12H #19 tablet 03/06/19 Cephalexin Monohydrate [Keflex -] 500 mg PO BID #20 capsule 03/09/19 Ibuprofen 600 mg PO QID PRN #20 tablet 03/09/19 Anemia: No Asthma: Yes Cancer: No Cardiac Disorders: Yes (RAPID HEARTBEAT HX) CVA: No COPD: No CHF: Yes Dementia: No Diabetes: (Yes; IDDM) GI Disorders: Yes (PANCREATITIS, DIVERTICULOSIS) Disorders: (YES; FREQUENT UTI'S) HTN: (LOW BP) Hypercholesterolemia: No Liver Disease: No Psychiatric Problems: Yes (anxiety, bipolar) Seizures: Yes Thyroid Disease: (Yes; HYPOTHYROIDISM, HYPOTENSION) - Surgical History Abdominal Surgery: No Appendectomy: No Cardiac Surgery: No Cholecystectomy: No Lung Surgery: No Neurologic Surgery: No Orthopedic Surgery: No - Reproductive History (#): 1 Para: 0 Cervical CA: No Dysfunctional Uterine Bleeding: No Ectopic : No Endometrial CA: No Polycystic Ovaries: No Therapeutic (s) & number: No Tubal Ligation: No Spontaneous : 1 - Immunization History Immunization Up to Date: Yes - Psycho Social/Smoking Cessation Hx Smoking Status: Yes Smoking History: Never smoked Have you smoked in the past 12 months: No Number of Cigarettes Smoked Daily: 20 If you are a former smoker, when did you quit?: 2011 'Breaking Loose' booklet given: 03/11/12 Hx Alcohol Use: No Drug/Substance Use Hx: No Substance Use Type: None Hx Substance Use Treatment: No Abd/GI Specific PMHX - Complaint Specific PMHX Pancreatitis: Yes Review of Systems - Review of Systems Able to Perform ROS?: Yes Is the patient limited Martiniquais proficient: No Constitutional: No: Symptoms Reported, See HPI, Chills, Diaphoresis, Fever, Loss of Appetite, Malaise, Night Sweats, Weakness, Weight Stable, Unintentional Wgt. Loss, Unexplained wgt Loss, Other ABD/GI: Yes: Abdominal cramping. No: Symptoms Reported, See HPI, Abdominal Distended, Abd. Pain w/ defecation, Blood Streaked Bowels, Constipated, Diarrhea , Difficulty Swallowing, Nausea, Poor Appetite, Poor Fluid Intake, Rectal Bleeding, Vomiting, Indigestion, Tarry Stools, Other *Physical Exam - Vital Signs Last Vital Signs Temp Pulse Resp BP Pulse Ox 97.9 F 114 H 18 116/71 99 03/09/19 19:25 03/09/19 19:25 03/09/19 19:25 03/09/19 19:25 03/09/19 19:25 - Physical Exam General Appearance: Yes: Appropriately Dressed Respiratory/Chest: positive: Lungs Clear, Normal Breath Sounds Gastrointestinal/Abdominal: positive: Normal Bowel Sounds, Tender (Right lower quadrant pain), Soft Musculoskeletal: positive: Normal Inspection. negative: CVA Tenderness Extremity: positive: Normal Capillary Refill, Normal Inspection, Normal Range of Motion Integumentary: positive: Normal Color, Dry, Warm Neurologic: positive: Fully Oriented, Alert ED Progress Note - Progress Note Progress Note: 03/09/19 23:08 A: Urinary tract infection; abdominal pain; mesenteric adenitis P: Recommend hydration and supportive care. UA +1 leuks with WBC will treat with cephalexin Ibuprofen for pain Close PCP follow-up department. Discharge - Discharge Information Problems reviewed: Yes Clinical Impression/Diagnosis: Abdominal pain Qualifiers: Abdominal location: lower abdomen, unspecified Qualified Code(s): R10.30 - Lower abdominal pain, unspecified UTI (urinary tract infection) Qualifiers: Urinary tract infection type: acute cystitis Hematuria presence: without hematuria Qualified Code(s): N30.00 - Acute cystitis without hematuria Disposition: HOME - Additional Discharge Information Prescriptions: Cephalexin Monohydrate [Keflex -] 500 mg PO BID #20 capsule Ibuprofen 600 mg PO QID PRN #20 tablet PRN Reason: Pain - Follow up/Referral Referrals: Del Daigle [Primary Care Provider] - - Patient Discharge Instructions Patient Printed Discharge Instructions: Urinary Tract Infection Additional Instructions: Drink plenty of fluids Take ibuprofen every 6 hours as needed for pain Take cephalexin as prescribed Follow-up with your primary care doctor as soon as possible. You need to repeat urine test once your antibiotic is completed. We will call you if you're antibiotic needs to be changed. - Post Discharge Activity
[2019-03-09] MEDS ORDERED: IBUPROFEN 600 MG TABLET (FP) PO ONE ×2 (21:17→22:43)
[2019-03-09 22:02] LABS: HYALINE CASTS 4 /lpf (0-8); URINE APPEARANCE CLOUDY; URINE BACTERIA 97.6 /hpf (NEGATIVE); URINE BILIRUBIN NEGATIVE (NEGATIVE); URINE COLOR YELLOW; URINE GLUCOSE (UA) 3+ (NEGATIVE); URINE KETONE NEGATIVE (NEGATIVE); URINE LEUK ESTERASE 1+ (NEGATIVE); URINE NITRITE NEGATIVE (NEGATIVE); URINE PROTEIN NEGATIVE (NEGATIVE); URINE RBC 3 /hpf (0-4); URINE UROBILINOGEN 0.2 mg/dL (0.2-1.0); URINE WBC 126 /hpf (0-5)
[2019-03-09 22:24] LABS: YEAST MODERATE (NEGATIVE)
--- NOTE | 2019-03-10 12:13 | EKG ---
Test Reason : Blood Pressure : / mmHG Vent. Rate : 079 BPM Atrial Rate : 079 BPM P-R Int : 178 ms QRS Dur : 090 ms QT Int : 378 ms P-R-T Axes : 056 051 048 degrees QTc Int : 433 ms NORMAL SINUS RHYTHM POSSIBLE LEFT ATRIAL ENLARGEMENT BORDERLINE ECG WHEN COMPARED WITH ECG OF 06-MAR-2019 01:23, NO SIGNIFICANT CHANGE WAS FOUND Confirmed by MD Saumya, Alex ([id number]) on 03/10/2019 12:13:07 PM Referred By: Confirmed By:Alex Kerns MD
== END 2019-03-09 23:50 | disposition home or self-care (01) ==
LOC: JER 19:16
DX: N39.0 Urinary tract infection, site not specified (principal); I88.0 Nonspecific mesenteric lymphadenitis; E10.9 Type 1 diabetes mellitus without complications; Z79.4 Long term (current) use of insulin; I95.9 Hypotension, unspecified; E03.9 Hypothyroidism, unspecified; F41.9 Anxiety disorder, unspecified; F31.9 Bipolar disorder, unspecified; G40.909 Epilepsy, unspecified, not intractable, without status epilepticus; Z87.09 Personal history of other diseases of the respiratory system; Z86.79 Personal history of other diseases of the circulatory system; Z87.19 Personal history of other diseases of the digestive system; I50.9 Heart failure, unspecified; Z87.440 Personal history of urinary (tract) infections
CPT/HCPCS: 81003; 84703; 87086; 93005; 93010; 99282-25

== ENCOUNTER 2019-03-28 20:03 | Inpatient (IN) | payer OTHER ==
--- NOTE | 2019-03-28 21:33 | PDOC ---
Attending Attestation - Resident Resident Name: Gregory Jauregui - ED Attending Attestation I have performed the following: I have examined & evaluated the patient, The case was reviewed & discussed with the resident, I agree w/resident's findings & plan - HPI HPI: 03/28/19 23:19 Pt took an OD in an effort to kill self: Insulin pens used as well as seroquel and her fluoxetine. Resident called Poison control center and we are monitoring pt;s EKG as well as her temp/vitals/mental status. - Physicial Exam PE: 03/29/19 20:14 Agree with resident exam. Pt's FS is 80s which is consistent with her OD of insulin, as she usually is in the 300-500 blood sugar range. Pt is afebrile VSS Alert and awake. No distress; pt is very matter of fact. Pt has no abd pain heart S1S2 RRR lungs clear no ext edema. - Medical Decision Making 03/29/19 20:15 Pt will be medically evaluated and admitted for further medical evaluation and monitoring. She will require psychiatric consult for her suicide attempt. 03/29/19 20:17 Pt admitted to the ICU; K+ is 3.3 and lipase is elevated. Heart Score/ECG Review - ECG Intrepretation Rhythm: Regular Rhythm - [place]: Normal - P and AR Delta Wave(s) Present: No WPW: No - QRS Poor R Wave Progression: No Q Wave Present: No - ST and T Early Repolarization: No Non Specific ST-T Wave changes: No Flattened T Waves: No Prolonged Q-T Interval: No - ECG Impressions Normal ECG: No Non-specific ST Elevation: No Ischemic Changes: No Tachycardia: Sinus
[2019-03-28 21:36] LABS: BASO % 0.5 % (0-2.0); EOS % 1.1 % (0-4.5); HEMATOCRIT 39.3 % (32.4-45.2); HEMOGLOBIN 13.1 GM/dL (10.7-15.3); LYMPH % 41.8 % (8-40); MCH 28.2 pg (25.7-33.7); MCHC 33.3 g/dl (32.0-36.0); MEAN CELL VOLUME 84.9 fl (80-96); MEAN PLT VOLUME 8.6 fl (7.5-11.1); NEUT % 49.6 % (42.8-82.8); PLATELET COUNT 234 K/MM3 (134-434); RBC 4.62 M/mm3 (3.60-5.2); RDW 13.1 % (11.6-15.6); WHITE BLOOD COUNT 8.3 K/mm3 (4.0-10.0)
[2019-03-28 21:44] LABS: INR 0.93 (0.83-1.09)
[2019-03-28 21:47] LABS: ACTIVATED PTT 33.3 SECONDS (25.2-36.5)
--- NOTE | 2019-03-28 21:50 | PDOC ---
History of Present Illness - General Chief Complaint: Overdose Stated Complaint: OVERDOSE Time Seen by Provider: 03/28/19 20:30 History Source: Patient, Old Records Exam Limitations: No Limitations - History of Present Illness Initial Comments: HPI: 28 y/o female presenting to [facility] ER complaining of intentional overdose of Levemir, Prosac, and Seroquel at approx. 19:30p today. States she took 6 full insulin pens, half a bottle of Prosac, and 2-3 pills of Seroquel in an attempt to end her life. Reports she has been feeling depressed for a long time. Stopped regularly taking her medications in Nov 2018. Sister over a year ago. is her. She lost custody of her daughter. Has a h/o of SI attempt in 2015. Medical Hx: - Bipolar Disorder - T1DM - Pancreatitis - Hypothyroidism - Diverticulosis - CHF - Asthma Review of Systems: 10 point review of systems completed. All systems negative except as noted above. Physical Examination: Vital signs and nursing notes reviewed. Constitutional- Nontoxic adult female in no acute distress or obvious discomfort. Found semi-fowlers on hospital bed. ON 1:1 observation. Head- Normocephalic. No obvious external signs of trauma. Eyes- Sclerae white. Ears- Hearing grossly intact. Nose- No nasal discharge. Neck- Supple, trachea is midline. Cardiovascular / Chest- Tachycardic rate with regular rhythm. No murmur, rubs, clicks, or gallops. Peripheral pulses- radial pulses full. Respiratory- Breathing unlabored. Speaking in complete sentences without pausing. Equal chest rise and fall. Clear to auscultation bilaterally. No stridor, no wheezing, no rhonchi. Gastrointestinal- abdomen is soft, non-tender, non-distended. Neuro- Alert and oriented x4. Moving all four extremities spontaneously. No facial asymmetry. No slurred speech. Skin- Warm, dry, and intact. Psych- Affect- flat and withdrawn. Maintains appropriately eye contact. Mood- normal. Speech was non-labored, non-pressured. Dressed and groomed appropriately. MDM: 28 y/o female presenting with intentional overdose on Levemir, Prozac, and Seroquel. Acutely suicidal. Afebrile. Vitals unremarkable for hypotension or tachycardia. Physical exam as described above. EKG unremarkable for QTc prolongation. POC BGL on arrival was significantly lower than BGL trend documented over previous visits. Ordered D5NS drip. 28 Mar 2019 21:49 PM Telephone discussion with Dr. Santiago. Verbally appraised of the pts HPI, ED course, and current plan of management. Will evaluate the pt in the morning. Called to bedside by RN. Pt now pale and diaphoretic. POC glucose downtrended. Ordered D50 IVP. Pt also eating a meal. 28 Mar 2019 22:26 PM Tele[address] discussion with Dr. Shearer of [facility] Poison Control. Verbally appraised of the pts HPI, ED course, and current plan of management. Advised monitoring for Serotonin syndrome with q6h EKGs and q4h temperatures, and hypoglycemia with frequent BGL measurements for at least 24 hours. Reviewed labs. Pt to be admitted to ICU for frequent monitoring for hypoglycemia and/or serotonin syndrome. 28 Mar 2019 22:36 PM Telephone discussion with TIP TESTER Elle. Verbally appraised of the pts HPI, ED course, and current plan of management. Will evaluate the pt for ICU admission. 28 Mar 2019 22:54 PM Telephone discussion with BRODERICK Fuller. Verbally appraised of the pts HPI, ED course, and current plan of management. Will admit pt to ICU for attending Dr. Kearney. EtOH and Phenytoin levels pending. Gregory Jauregui M.D., PGY2 Emergency Medicine Resident Past History - Past Medical History Allergies/Adverse Reactions: Allergies Allergy/AdvReac Type Severity Reaction Status Date / Time mushroom Allergy Verified 03/09/19 19:30 No Known Drug Allergies Allergy Verified 03/09/19 19:30 nut - unspecified Allergy Verified 03/09/19 19:30 peach Allergy Verified 03/09/19 19:30 tomato Allergy Verified 03/09/19 19:30 SEAFOOD Allergy Severe ANAPHYLAXIS Uncoded 03/09/19 19:30 Home Medications: Ambulatory Orders Quetiapine Fumarate [Seroquel -] 100 tab PO HS 02/17/17 Divalproex *ER* [Depakote *ER* -] 500 mg PO BID 10/31/17 Albuterol Sulfate Inhaler - [Ventolin Hfa Inhaler -] 2 inh PO Q4H PRN 02/17/18 Phenytoin Na Extended [Dilantin -] 100 mg PO BID #30 capsule 02/18/18 Fluoxetine HCl [Prozac] 40 mg PO DAILY 08/30/18 Insulin Lispro Protamin/Lispro [Humalog Mix 75-25 Kwikpen] 0 unit SQ BID Nitrofurantoin Macrocrystal [Nitrofurantoin] 100 mg PO Q12H #10 capsule Cephalexin [Keflex] 500 mg PO QID 7 Days #28 capsule 10/09/18 Cephalexin [Keflex] 500 mg PO QID 5 Days #20 capsule 12/31/18 Sulfamethoxazole/Trimethoprim [Bactrim Ds -] 1 tab PO BID #14 tablet 02/16/19 Ciprofloxacin [Cipro -] 500 mg PO Q12H #19 tablet 03/06/19 Cephalexin Monohydrate [Keflex -] 500 mg PO BID #20 capsule 03/09/19 Ibuprofen 600 mg PO QID PRN #20 tablet 03/09/19 Anemia: No Asthma: Yes Cancer: No Cardiac Disorders: Yes (RAPID HEARTBEAT HX) CVA: No COPD: No CHF: Yes Dementia: No Diabetes: (Yes; IDDM) GI Disorders: Yes (PANCREATITIS, DIVERTICULOSIS) Disorders: (YES; FREQUENT UTI'S) HTN: (LOW BP) Hypercholesterolemia: No Liver Disease: No Psychiatric Problems: Yes (anxiety, bipolar) Seizures: Yes Thyroid Disease: (Yes; HYPOTHYROIDISM, HYPOTENSION) - Surgical History Abdominal Surgery: No Appendectomy: No Cardiac Surgery: No Cholecystectomy: No Lung Surgery: No Neurologic Surgery: No Orthopedic Surgery: No - Reproductive History (#): 1 Para: 0 Cervical CA: No Dysfunctional Uterine Bleeding: No Ectopic : No Endometrial CA: No Polycystic Ovaries: No Therapeutic (s) & number: No Tubal Ligation: No Spontaneous : 1 - Immunization History Immunization Up to Date: Yes - Psycho Social/Smoking Cessation Hx Smoking Status: Yes Smoking History: Current every day smoker Have you smoked in the past 12 months: No Number of Cigarettes Smoked Daily: 20 If you are a former smoker, when did you quit?: 2011 Information on smoking cessation initiated: No 'Breaking Loose' booklet given: 03/11/12 Hx Alcohol Use: No Drug/Substance Use Hx: No Substance Use Type: None Hx Substance Use Treatment: No *Physical Exam - Vital Signs Last Vital Signs Temp Pulse Resp BP Pulse Ox 98.5 F 139 H 19 115/61 98 03/28/19 20:17 03/28/19 20:17 03/28/19 20:17 03/28/19 20:17 03/28/19 20:17 ED Treatment Course - LABORATORY CBC & Chemistry Diagram: 03/28/19 21:20 03/28/19 21:20 - ADDITIONAL ORDERS Additional order review: Laboratory Results 03/28/19 03/28/19 21:20 21:07 PT with INR 11.00 INR 0.93 PTT (Actin FS) 33.3 POC Glucometer 85 03/28/19 03/28/19 21:20 21:07 RBC 4.62 MCV 84.9 MCHC 33.3 RDW 13.1 MPV 8.6 Neutrophils % 49.6 Lymphocytes % 41.8 H Monocytes % 7.0 Eosinophils % 1.1 Basophils % 0.5 POC Glucometer 85 Discharge - Discharge Information Problems reviewed: Yes Clinical Impression/Diagnosis: Suicide attempt Insulin overdose Qualifiers: Encounter type: initial encounter Intentional SSRI (selective serotonin reuptake inhibitor) overdose Qualifiers: Encounter type: initial encounter Qualified Code(s): T43.222A - Poisoning by selective serotonin reuptake inhibitors, intentional self-harm, initial encounter Condition: Stable - Admission Yes - Follow up/Referral Referrals: Del Daigle [Primary Care Provider] - - Patient Discharge Instructions - Post Discharge Activity
[2019-03-28] MEDS ORDERED: DEXTROSE 50%-WATER - 25 GM/50 ML VIAL ONE (21:59)
[2019-03-28] MEDS: DEXTROSE 5%-NORMAL SALINE 1,000 ML IV SCH (22:10)
[2019-03-28 22:13] LABS: ALBUMIN 3.3 g/dl (3.4-5.0); ALK PHOS 94 U/L (45-117); ANION GAP 5 MMOL/L (8-16); BILIRUBIN,TOTAL 0.3 mg/dL (0.2-1); BLOOD UREA NITROGEN 8.3 mg/dL (7-18); CALCIUM 9.1 mg/dL (8.5-10.1); CHLORIDE 107 mmol/L (98-107); CO2 28 mmol/L (21-32); CREATININE 0.5 mg/dL (0.55-1.3); GLUCOSE,RANDOM 63 mg/dL (74-106); LIPASE 819 U/L (73-393); MAGNESIUM 1.9 mg/dL (1.8-2.4); POTASSIUM 3.3 mmol/L (3.5-5.1); SGOT/AST 8 U/L (15-37); SGPT/ALT 17 U/L (13-61); SODIUM 141 mmol/L (136-145); TOT PROT 7.1 g/dl (6.4-8.2)
[2019-03-28] MEDS ORDERED: DEXTROSE 50%-WATER - 25 GM/50 ML VIAL IVPUSH ONE (22:15)
--- NOTE | 2019-03-28 23:09 | CONSULT ---
Consult Consult Specialty:: CCM Referred by:: Carly (ED) - History of Present Illness Chief Complaint: intentional OD, suicide attempt History of Present Illness: Hx obtained from patient Ms Iyer is a 28 y/o woman with bipolar disorder and depression with previous suicide attempt in 2016 and with previous inpatient psychiatric admission who presents to ED this evening stating she intentionally took 1/2 bottle of prozac, injected herself with multiple vials of insulin and took 2 extra seroquel. She relates no other toxic ingestion. She has complex medical history including but not limited to chronic pancreatitis, hx of chf, hypothyroid, and IDDM. Pt relates feeling depressed for sometime, which briefly improved after inpt admission In ED pt was alert oriented and without distress. While in ED her BGL dropped, she was symptomatic and required D-50. She was started on D5 gtt. Poison control was called and recommended frequent temp and EKGs to r/o serotonin syndrome and long Qtc respectively. Pt admitted to ICU for 1:1 observation and further management and care. 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 Pulmonary: Yes: Asthma Gastrointestinal: Yes: Diverticulosis, Pancreatitis (recurring abdominal pain hospitalizations with elevated lipases and normal amylases attributed to pancreatitis) Hepatobiliary: Yes: Other (fatty liver) ...LMP: 05/07/18 Psych: Yes: Anxiety, Bipolar Endocrine: Yes: Diabetes Mellitus (poorly controlled), Hypothyroidism - Past Surgical History Past Surgical History: Yes: Colonoscopy, Upper Endoscopy - Alcohol/Substance Use Hx Alcohol Use: No History of Substance Use: reports: None - Smoking History Smoking history: Current every day smoker Have you smoked in the past 12 months: No Aproximately how many cigarettes per day: 20 If you are a former smoker, when did you quit?: 2011 - Social History Usual Living Arrangement: With Parent ADL: Independent Occupation: unemployed History of Recent Travel: No Home Medications - Allergies Allergies/Adverse Reactions: Allergies Allergy/AdvReac Type Severity Reaction Status Date / Time mushroom Allergy Verified 03/09/19 19:30 No Known Drug Allergies Allergy Verified 03/09/19 19:30 nut - unspecified Allergy Verified 03/09/19 19:30 peach Allergy Verified 03/09/19 19:30 tomato Allergy Verified 03/09/19 19:30 SEAFOOD Allergy Severe ANAPHYLAXIS Uncoded 03/09/19 19:30 - Home Medications Home Medications: Ambulatory Orders Quetiapine Fumarate [Seroquel -] 100 tab PO HS 02/17/17 Divalproex *ER* [Depakote *ER* -] 500 mg PO BID 10/31/17 Albuterol Sulfate Inhaler - [Ventolin Hfa Inhaler -] 2 inh PO Q4H PRN 02/17/18 Phenytoin Na Extended [Dilantin -] 100 mg PO BID #30 capsule 02/18/18 Fluoxetine HCl [Prozac] 40 mg PO DAILY 08/30/18 Insulin Lispro Protamin/Lispro [Humalog Mix 75-25 Kwikpen] 0 unit SQ BID Nitrofurantoin Macrocrystal [Nitrofurantoin] 100 mg PO Q12H #10 capsule Cephalexin [Keflex] 500 mg PO QID 7 Days #28 capsule 10/09/18 Cephalexin [Keflex] 500 mg PO QID 5 Days #20 capsule 12/31/18 Sulfamethoxazole/Trimethoprim [Bactrim Ds -] 1 tab PO BID #14 tablet 02/16/19 Ciprofloxacin [Cipro -] 500 mg PO Q12H #19 tablet 03/06/19 Cephalexin Monohydrate [Keflex -] 500 mg PO BID #20 capsule 03/09/19 Ibuprofen 600 mg PO QID PRN #20 tablet 03/09/19 Family Medical History Family History: Unable to Obtain Review of Systems Findings/Remarks: 12 pt review negative except as per HPI. Physical Exam Vital Signs: Vital Signs Temperature 98.2 F 03/28/19 22:30 Pulse Rate 116 H 03/28/19 22:30 Respiratory Rate 20 03/28/19 22:30 Blood Pressure 115/61 03/28/19 20:17 O2 Sat by Pulse Oximetry (%) 98 03/28/19 20:17 Constitutional: Yes: Well Nourished, No Distress Eyes: Yes: Conjunctiva Clear, EOM Intact, PERRL HENT: Yes: Atraumatic, Other (acromegaly appearing hyperplasia gums) Neck: Yes: Trachea Midline. No: Lymphadenopathy Cardiovascular: Yes: Regular Rate and Rhythm Respiratory: Yes: CTA Bilaterally. No: Accessory Muscle Use Gastrointestinal: Yes: Normal Bowel Sounds, Abdomen, Obese ...Rectal Exam: Yes: Deferred Renal/: Yes: WNL Breast(s): Yes: WNL Musculoskeletal: Yes: WNL Extremities: Yes: WNL Edema: No Edema: LUE: Trace, RUE: Trace, LLE: Trace, RLE: Trace Peripheral Pulses WNL: Yes Integumentary: Yes: WNL Neurological: Yes: WNL ...Motor Strength: WNL Psychiatric: Yes: WNL Labs: CBC, BMP 03/28/19 21:20 03/28/19 21:20 Assessment/Plan A28 y/o woman with bipolar and depression now with suicide attempt, poly pharm od : seroquel, insulin, prozac at risk for long qt, serotonin syndrome, and hypoglycemia P/ Suicide attempt -arms length 1:1 -psych to see in am Poly pharm OD -supportive care -q 1 BGM -q4 temp -q 6 EKG -may need d10 Chronic pancreatitis, hypothyroids, sz disorder -restart home meds in am FEN: diabetic diet SQH for dvt prophy, no indication for GI proph Elle ACNP 4436 35min CCT evaluating pt and developing plan.
--- NOTE | 2019-03-28 23:46 | HP ---
Admitting History and Physical - Primary Care Physician PCP: - Admission Chief Complaint: intentional OD, suicide attempt History of Present Illness: 28 y/o woman with PMHx of T1DM, Pancreatitis, Hypothyroidism, CHF, Asthma, bipolar disorder and depression arrived to ED with complain of intentional overdose of Levemir (6 full insulin pens), Prosac (half bottle), and Seroquel ( 2 pills) at approx. 19:30p today in attempt to end her life. Patient reports she has been depressed for a while since her sister over a year ago, recent divorce, and losing custody of her child. Patient reports being non- compliant with psych meds, had not taken them since November,. Member last suicide attempt was in 2015. Patient also mentioned she smoked a whole pack of cigarettes, denies alcohol ingestion. In ED Psych and poison controlled contacted, placed on 1:1, recommended q4 temp and q6h EKGs to r/o serotonin syndrome and long Qtc, patient also noted with hypoglycemia placed on d5 IVF and monitor BGM Q1h, patient will be admitted to ICU services. History Source: Patient Limitations to Obtaining History: No Limitations - Past Medical History SHOEBLACK: Yes: Seizure Pulmonary: Yes: Asthma Gastrointestinal: Yes: Diverticulosis, Pancreatitis (recurring abdominal pain hospitalizations with elevated lipases and normal amylases attributed to pancreatitis) Hepatobiliary: Yes: Other (fatty liver) ...LMP: 05/07/18 Psych: Yes: Anxiety, Bipolar Endocrine: Yes: Diabetes Mellitus (poorly controlled), Hypothyroidism - Past Surgical History Past Surgical History: Yes: Colonoscopy, Upper Endoscopy - Smoking History Smoking history: Current every day smoker Have you smoked in the past 12 months: Yes Aproximately how many cigarettes per day: 20 - Alcohol/Substance Use Hx Alcohol Use: No History of Substance Use: reports: None - Social History Usual Living Arrangement: Yes: With Parent ADL: Independent Occupation: unemployed History of Recent Travel: No Home Medications - Allergies Allergies/Adverse Reactions: Allergies Allergy/AdvReac Type Severity Reaction Status Date / Time mushroom Allergy Verified 03/09/19 19:30 No Known Drug Allergies Allergy Verified 03/09/19 19:30 nut - unspecified Allergy Verified 03/09/19 19:30 peach Allergy Verified 03/09/19 19:30 tomato Allergy Verified 03/09/19 19:30 SEAFOOD Allergy Severe ANAPHYLAXIS Uncoded 03/09/19 19:30 - Home Medications Home Medications: Ambulatory Orders Quetiapine Fumarate [Seroquel -] 100 tab PO HS 02/17/17 Divalproex *ER* [Depakote *ER* -] 500 mg PO BID 10/31/17 Albuterol Sulfate Inhaler - [Ventolin Hfa Inhaler -] 2 inh PO Q4H PRN 02/17/18 Phenytoin Na Extended [Dilantin -] 100 mg PO BID #30 capsule 02/18/18 Fluoxetine HCl [Prozac] 40 mg PO DAILY 08/30/18 Insulin Lispro Protamin/Lispro [Humalog Mix 75-25 Kwikpen] 0 unit SQ BID Nitrofurantoin Macrocrystal [Nitrofurantoin] 100 mg PO Q12H #10 capsule Cephalexin [Keflex] 500 mg PO QID 7 Days #28 capsule 10/09/18 Cephalexin [Keflex] 500 mg PO QID 5 Days #20 capsule 12/31/18 Sulfamethoxazole/Trimethoprim [Bactrim Ds -] 1 tab PO BID #14 tablet 02/16/19 Ciprofloxacin [Cipro -] 500 mg PO Q12H #19 tablet 03/06/19 Cephalexin Monohydrate [Keflex -] 500 mg PO BID #20 capsule 03/09/19 Ibuprofen 600 mg PO QID PRN #20 tablet 03/09/19 Family Medical History Family History: Denies Review of Systems - Review of Systems Constitutional: reports: No Symptoms Eyes: reports: No Symptoms HENT: reports: No Symptoms Neck: reports: No Symptoms Cardiovascular: reports: No Symptoms Respiratory: reports: No Symptoms Gastrointestinal: reports: No Symptoms Genitourinary: reports: No Symptoms Breasts: reports: No Symptoms Reported Musculoskeletal: reports: No Symptoms Integumentary: reports: No Symptoms Neurological: reports: No Symptoms Endocrine: reports: No Symptoms Hematology/Lymphatic: reports: No Symptoms Psychiatric: reports: Depression Physical Examination Vital Signs: Vital Signs Temperature 98.2 F 03/28/19 22:30 Pulse Rate 116 H 03/28/19 22:30 Respiratory Rate 20 03/28/19 22:30 Blood Pressure 115/61 03/28/19 20:17 O2 Sat by Pulse Oximetry (%) 98 03/28/19 20:17 Constitutional: Yes: No Distress, Other (on 1:! observation) Eyes: Yes: Conjunctiva Clear, EOM Intact HENT: Yes: Atraumatic, Normocephalic Neck: Yes: Supple, Trachea Midline Cardiovascular: Yes: Regular Rate and Rhythm Respiratory: Yes: Regular, CTA Bilaterally Gastrointestinal: Yes: Normal Bowel Sounds, Soft Musculoskeletal: Yes: WNL Extremities: Yes: WNL Edema: No Peripheral Pulses WNL: Yes Neurological: Yes: Alert, Oriented Psychiatric: Yes: Other (flat affect, withdrawn) Labs: CBC, BMP 03/28/19 21:20 03/28/19 21:20 Problem List - Problems (1) Suicide attempt Code(s): T14.91XA - SUICIDE ATTEMPT, INITIAL ENCOUNTER (2) Depressed bipolar I disorder Code(s): F31.9 - BIPOLAR DISORDER, UNSPECIFIED (3) Intentional SSRI (selective serotonin reuptake inhibitor) overdose Code(s): T43.222A - POISN BY SLCTV SEROTONIN REUPTAKE INHIBTR, SELF-HARM, INIT Qualifiers: Encounter type: initial encounter Qualified Code(s): T43.222A - Poisoning by selective serotonin reuptake inhibitors, intentional self-harm, initial encounter (4) Insulin overdose Code(s): T38.3X1A - POISONING BY INSULIN AND ORAL HYPOGLYCEMIC DRUGS, ACC, INIT Qualifiers: Encounter type: initial encounter (5) Seizure Code(s): R56.9 - UNSPECIFIED CONVULSIONS (6) Diabetes mellitus, insulin dependent (IDDM), uncontrolled Code(s): E10.65 - TYPE 1 DIABETES MELLITUS WITH HYPERGLYCEMIA Qualifiers: Glycemic state: with hyperglycemia Qualified Code(s): E10.65 - Type 1 diabetes mellitus with hyperglycemia (7) Chronic pancreatitis Code(s): K86.1 - OTHER CHRONIC PANCREATITIS (8) CHF (congestive heart failure) Code(s): I50.9 - HEART FAILURE, UNSPECIFIED (9) Hypothyroid Code(s): E03.9 - HYPOTHYROIDISM, UNSPECIFIED (10) Asthma Code(s): J45.909 - UNSPECIFIED ASTHMA, UNCOMPLICATED Assessment/Plan 28 y/o female presenting to ED with suicide attempt intentional overdose on Levemir, Prozac, and Seroquel now at risk for hypoglycemia, serotonin syndrome. # Suicide attempt - placed on 1:1, constant observation - psych notified by ED staff, will follow in AM - safety/fall precaution # Poly pharm OD (see hpi) # Hypoglycemia # risk for serotonin syndrome admitted to ICU - continuos cardiac monitoring - EKG unremarkable for QTc prolongation. vent rate @120, sinus tachy - Noted with random glucose 63, POC 66 - ED spoke to Dr. Shearer of [facility] Poison Control with recs - EKGs q6h, BGM Q1h for x24 at least and q4h temperatures - given D50 25gm x1, on D5NS, should switch to D510, monitor POC closely - follow up drug screen - Del Arellano to follow in AM - further management as per ICU #Hypokalemia - supplement and monitor lytes - follow up BMP in AM # Bipolar disorder - hold seroquel, prozac for now, until psych follow up # h/o of seizures - Divalproex *ER* 500 mg PO BID - Phenytoin Na Extended 100 mg PO BID - monitor for acute seizure activity, safety precaution # DM - monitor bgm q1h, hold insulin for now # Asthma -Albuterol Sulfate Inhaler 2 inh PO Q4H PRN FEN: monitor lytes, diabetic diet, start home meds in Am VTE: Heparin SQ Dispo: ICU Visit type - Emergency Visit Emergency Visit: Yes ED Registration Date: 03/28/19 Care time: The patient presented to the Emergency Department on the above date and was hospitalized for further evaluation of their emergent condition. - New Patient This patient is new to me today: Yes Date on this admission: 03/28/19 - Critical Care Critical Care patient: Yes Total Critical Care Time (in minutes): 34 Critical Care Statement: The care of this patient involved high complexity decision making to prevent further life threatening deterioration of the patient 's condition and/or to evaluate & treat vital organ system(s) failure or risk of failure.
[2019-03-29 00:22] LABS: COCAINE, UR NEGATIVE ng/ml (CUTOFF=300); METHADONE, UR NEGATIVE ng/ml (CUTOFF=300); OPIATES, URI NEGATIVE ng/ml (CUTOFF=300); PHENCYCLIDINE,URINE NEGATIVE ng/ml (CUTOFF=25); URINE AMPHETAMINES NEGATIVE ng/ml (CUTOFF=500); URINE BARBITURATES NEGATIVE ng/ml (CUTOFF=200); URINE BENZODIAZEPINES NEGATIVE ng/ml (CUTOFF=200)
[2019-03-29 00:51] LABS: EPI CELLS 1.1 /HPF (0-5/HPF); HYALINE CASTS 3 /lpf (0-8); PH,URINE 5.5 (5.0-8.0); URINE APPEARANCE CLEAR; URINE BACTERIA 33.4 /hpf (NEGATIVE); URINE BILIRUBIN NEGATIVE (NEGATIVE); URINE COLOR YELLOW; URINE GLUCOSE (UA) 3+ (NEGATIVE); URINE KETONE NEGATIVE (NEGATIVE); URINE LEUK ESTERASE 1+ (NEGATIVE); URINE NITRITE NEGATIVE (NEGATIVE); URINE PROTEIN TRACE (NEGATIVE); URINE RBC 436 /hpf (0-4); URINE WBC 34 /hpf (0-5)
[2019-03-29] MEDS ORDERED: POTASSIUM CHLORIDE TABS 20 MEQ TABLET.ER (FP) PO ONE (02:09)
[2019-03-29] MEDS: DEXTROSE 5%-NORMAL SALINE 1,000 ML IV SCH (02:46)
[2019-03-29 06:33] LABS: HEMATOCRIT 34.8 % (32.4-45.2); HEMOGLOBIN 11.6 GM/dL (10.7-15.3); MCH 28.3 pg (25.7-33.7); MCHC 33.5 g/dl (32.0-36.0); MEAN CELL VOLUME 84.5 fl (80-96); MEAN PLT VOLUME 8.5 fl (7.5-11.1); PLATELET COUNT 190 K/MM3 (134-434); RBC 4.12 M/mm3 (3.60-5.2); WHITE BLOOD COUNT 7.3 K/mm3 (4.0-10.0)
[2019-03-29 06:51] LABS: BLOOD UREA NITROGEN 9.9 mg/dL (7-18); CALCIUM 8.7 mg/dL (8.5-10.1); CREATININE 0.6 mg/dL (0.55-1.3); PHOSPHOROUS 4.1 mg/dL (2.5-4.9); POTASSIUM 4.8 mmol/L (3.5-5.1)
--- NOTE | 2019-03-29 10:06 | CON.PSY ---
Psychiatry Consult Chief Complaint: I was very upset over my sisters 8 monthsago, i took Insulin and took some pills. I feel depressed but I was not trying to kill myself. Symptoms: reports: Depressed Mood, Suicidality, Self destructive thoughts - Previous Psychiatric Treatment Outpatient: Less than 6 mos ago Inpatient: 2 or more prior admissions - Previous Substance Abuse Treatment Outpatient: None Inpatient: None - Reason for Previous Treatment Reason for Previous Treatment: Major Depression, Suicidal Attempt/Behavior - Current Medications Current Medications: Active Medications Dextrose/Sodium Chloride (D5-Ns -) 1,000 mls @ 125 mls/hr IV ASDIR [facility] Last Admin: 03/29/19 02:46 Dose: 125 mls/hr - Allergies Allergies: Allergies Allergy/AdvReac Type Severity Reaction Status Date / Time mushroom Allergy Verified 03/09/19 19:30 No Known Drug Allergies Allergy Verified 03/09/19 19:30 nut - unspecified Allergy Verified 03/09/19 19:30 peach Allergy Verified 03/09/19 19:30 tomato Allergy Verified 03/09/19 19:30 SEAFOOD Allergy Severe ANAPHYLAXIS Uncoded 03/09/19 19:30 - Current Living Status Usual Living Arrangement: With Parent - Current Mental Status Evaluation Appearance: Well Groomed Attitude: Guarded - Affect Affect: Constrictive Appropriateness: Appropriate to Content - Mood Mood: Depressed - Speech/Language Expressive: Coherent - Psychomotor Activity Psychomotor Activity: Normal - Thought Process Thought Process: Intact - Thought Content Hallucinations: Absent Delusions: Absent - Self Perception Self Perception: No Impairment - Cognition Attention: Alert Orientation: Time Memory, Immediate Recall: Intact Memory, Short Term: 3/3 Memory, Remote with Promptin/3 - Concentration Serial Sevens Intact: Yes Simple Calculations Intact: Yes - Abstraction Proverb Interpretation: Intact Judgement: Moderately Impaired - Insight Insight: Impaired - Impulse Control Impulse Control: Moderately Impaired - Suicidal Ideation Suicidal Ideation: Yes (drug overdose) - Homicidal Ideation Homicidal Ideation: No Assessment/Plan 1) Continue with 1:1. 2) will see her tomorrow to determine if she needs In Patient Psych Admission.
[2019-03-29] MEDS ORDERED: INSULIN SLIDING SCALE (NOVOLOG) 1 VIAL SQ STA (10:22)
--- NOTE | 2019-03-29 10:31 | PN ---
Progress Note (short form) - Note Progress Note: Pulm/CCM Progress Notes: Pt seen and examined in the ICU. Responding appropriately. Afebrile. BG 200's. QTc 457-422. C/o being hungry. Started on diabetic diet. Seen by psyche. 1:[address] Active Medications Dextrose/Sodium Chloride (D5-Ns -) 1,000 mls @ 125 mls/hr IV ASDIR [facility] Last Admin: 03/29/19 02:46 Dose: 125 mls/hr Vital Signs Period Temp Pulse Resp BP Sys/Argueta Pulse Ox Last 24 Hr 97.9 F-99.0 F 70-139 16-21 96-115/61-65 98-100 Intake & Output 03/26/19 03/27/19 03/28/19 03/29/19 23:59 23:59 23:59 23:59 Intake Total 500 Output Total 1 Balance 499 Weight 98.883 kg 100.425 kg Exam: Gen: young overweight, in NAD Neuro: A+O; slightly inappropriate, NARANJO HEENT: Neck supple, MMM Lungs: CTA CV: RRR, S1S2 Abd: Obese, soft, NT EXT: WWP CBC, BMP 03/29/19 05:25 03/29/19 05:25 Assessment/Plan A/ 28 y/o woman with bipolar and depression now with suicide attempt, poly pharm od : seroquel, insulin, prozac at risk for long qt, serotonin syndrome, and hypoglycemia P/ Suicide attempt -arms length 1:1 -psych consult- will reassess for in-patient psyche admit Poly pharm OD -supportive care -q 1 BGM-> to ACHS with diet -q4 temp -q 6 EKG -Poison control following Chronic pancreatitis, hypothyroids, sz disorder -restart home meds in am FEN: diabetic diet -ISS SQ[facility] for dvt prophy, no indication for GI proph Diane Cho, [facility]
--- NOTE | 2019-03-29 10:42 | PN ---
Progress Note, Physician - Current Medication List Current Medications: Active Medications Dextrose/Sodium Chloride (D5-Ns -) 1,000 mls @ 125 mls/hr IV ASDIR [facility] Last Admin: 03/29/19 02:46 Dose: 125 mls/hr - Objective Vital Signs: Vital Signs Temperature 97.9 F 03/29/19 07:53 Pulse Rate 88 03/29/19 09:46 Respiratory Rate 20 03/29/19 09:46 Blood Pressure 103/65 03/29/19 09:40 O2 Sat by Pulse Oximetry (%) 100 03/29/19 02:00 Cardiovascular: Yes: Regular Rate and Rhythm Respiratory: Yes: Regular, CTA Bilaterally Gastrointestinal: Yes: Normal Bowel Sounds, Soft Labs: CBC, BMP 03/29/19 05:25 03/29/19 05:25 INR, PTT INR 0.93 (0.83-1.09) 03/28/19 21:20 Problem List - Problems (1) Suicide attempt Assessment/Plan: - placed on 1:1, constant observation - psych NOTED - safety/fall precaution -admitted to ICU - continuos cardiac monitoring - EKG unremarkable for QTc prolongation. vent rate @120, sinus tachy - Noted with random glucose 63, POC 66 - ED spoke to Dr. Shearer of [facility] Poison Control with recs - EKGs q6h, BGM Q1h for x24 at least and q4h temperatures - follow up drug screen - further management as per ICU Code(s): T14.91XA - SUICIDE ATTEMPT, INITIAL ENCOUNTER (2) Asthma Assessment/Plan: ALBUTEROL Code(s): J45.909 - UNSPECIFIED ASTHMA, UNCOMPLICATED (3) Bipolar 1 disorder Assessment/Plan: PSYCH ON BOARD Code(s): F31.9 - BIPOLAR DISORDER, UNSPECIFIED (4) Diabetes mellitus, insulin dependent (IDDM), uncontrolled Assessment/Plan: OVERDOSE ON LEVEMIR given D50 25gm x1, on D5NS, should switch to D510, monitor POC closely ENDO Code(s): E10.65 - TYPE 1 DIABETES MELLITUS WITH HYPERGLYCEMIA Qualifiers: Glycemic state: with hyperglycemia Qualified Code(s): E10.65 - Type 1 diabetes mellitus with hyperglycemia (5) Seizure Assessment/Plan: - Divalproex *ER* 500 mg PO BID - Phenytoin Na Extended 100 mg PO BID - monitor for acute seizure activity, safety precaution Code(s): R56.9 - UNSPECIFIED CONVULSIONS
--- NOTE | 2019-03-29 13:04 | EKG ---
Test Reason : Blood Pressure : / mmHG Vent. Rate : 075 BPM Atrial Rate : 075 BPM P-R Int : 182 ms QRS Dur : 084 ms QT Int : 378 ms P-R-T Axes : 053 064 043 degrees QTc Int : 422 ms NORMAL SINUS RHYTHM NORMAL ECG WHEN COMPARED WITH ECG OF 29-MAR-2019 02:06, NO SIGNIFICANT CHANGE WAS FOUND Confirmed by SURJIT ROSAS MD ([id number]) on 03/29/2019 1:04:15 PM Referred By: Jaida CHAVIS Confirmed By:SURJIT ROSAS MD
--- NOTE | 2019-03-29 13:08 | EKG ---
Test Reason : Blood Pressure : / mmHG Vent. Rate : 094 BPM Atrial Rate : 094 BPM P-R Int : 168 ms QRS Dur : 082 ms QT Int : 366 ms P-R-T Axes : 051 050 044 degrees QTc Int : 457 ms NORMAL SINUS RHYTHM NORMAL ECG WHEN COMPARED WITH ECG OF 28-MAR-2019 21:17, NO SIGNIFICANT CHANGE WAS FOUND Confirmed by SURJIT ROSAS MD ([id number]) on 03/29/2019 1:08:36 PM Referred By: Confirmed By:SURJIT ROSAS MD
--- NOTE | 2019-03-29 13:09 | EKG ---
Test Reason : Blood Pressure : / mmHG Vent. Rate : 120 BPM Atrial Rate : 120 BPM P-R Int : 166 ms QRS Dur : 082 ms QT Int : 312 ms P-R-T Axes : 056 033 039 degrees QTc Int : 440 ms SINUS TACHYCARDIA POSSIBLE LEFT ATRIAL ENLARGEMENT BORDERLINE ECG WHEN COMPARED WITH ECG OF 09-MAR-2019 20:57, VENT. RATE HAS INCREASED BY 41 BPM Confirmed by SURJIT ROSAS MD ([id number]) on 03/29/2019 1:09:28 PM Referred By: Confirmed By:SURJIT ROSAS MD
[2019-03-29] MEDS ORDERED: ACETAMINOPHEN 1000 MG/100 ML VIAL (NON FORMULARY) IVPB PRN (20:42)
[2019-03-29] MEDS: INSULIN SLIDING SCALE (NOVOLOG) 1 VIAL SQ SCH (21:26)
[2019-03-29] MEDS ORDERED: ACETAMINOPHEN 325 MG TABLET (FP) PO PRN (21:42)
[2019-03-29] MEDS ORDERED: MELATONIN 1 MG TABLET PO PRN (21:43)
--- NOTE | 2019-03-30 01:11 | EKG ---
Test Reason : Blood Pressure : / mmHG Vent. Rate : 081 BPM Atrial Rate : 081 BPM P-R Int : 182 ms QRS Dur : 086 ms QT Int : 376 ms P-R-T Axes : 054 061 040 degrees QTc Int : 436 ms NORMAL SINUS RHYTHM NORMAL ECG WHEN COMPARED WITH ECG OF 29-MAR-2019 09:16, NO SIGNIFICANT CHANGE WAS FOUND Confirmed by SURJIT ROSAS MD ([id number]) on 03/30/2019 1:10:51 AM Referred By: Jaida CHAVIS Confirmed By:SURJIT ROSAS MD
[2019-03-30 06:26] LABS: HEMATOCRIT 34.8 % (32.4-45.2); HEMOGLOBIN 12.1 GM/dL (10.7-15.3); MCH 29.3 pg (25.7-33.7); MCHC 34.7 g/dl (32.0-36.0); MEAN CELL VOLUME 84.5 fl (80-96); MEAN PLT VOLUME 8.1 fl (7.5-11.1); PLATELET COUNT 191 K/MM3 (134-434); RBC 4.12 M/mm3 (3.60-5.2); RDW 12.8 % (11.6-15.6); WHITE BLOOD COUNT 6.3 K/mm3 (4.0-10.0)
[2019-03-30] MEDS: INSULIN SLIDING SCALE (NOVOLOG) 1 VIAL SQ SCH ×2 (06:41→11:26)
[2019-03-30 06:44] LABS: BLOOD UREA NITROGEN 13.6 mg/dL (7-18); CALCIUM 8.2 mg/dL (8.5-10.1); CREATININE 0.5 mg/dL (0.55-1.3); MAGNESIUM 1.8 mg/dL (1.8-2.4); PHOSPHOROUS 3.5 mg/dL (2.5-4.9); POTASSIUM 4.2 mmol/L (3.5-5.1)
--- NOTE | 2019-03-30 08:05 | PN ---
Progress Note, Physician - Current Medication List Current Medications: Active Medications Acetaminophen (Tylenol -) 650 mg PO Q6H PRN PRN Reason: PAIN LEVEL 1-5 Last Admin: 03/29/19 22:19 Dose: 650 mg Insulin Aspart (Novolog Vial Sliding Scale -) 1 vial SQ [facility]; Protocol Last Admin: 03/30/19 06:41 Dose: 4 units Melatonin (Melatonin) 3 mg PO HS PRN PRN Reason: INSOMNIA - Objective Vital Signs: Vital Signs Temperature 98.0 F 03/30/19 06:00 Pulse Rate 65 03/30/19 06:00 Respiratory Rate 18 03/30/19 06:00 Blood Pressure 100/72 03/30/19 06:00 O2 Sat by Pulse Oximetry (%) 100 03/29/19 02:00 Cardiovascular: Yes: Regular Rate and Rhythm Respiratory: Yes: Regular, CTA Bilaterally Gastrointestinal: Yes: Normal Bowel Sounds, Soft Neurological: Yes: Alert, Oriented Psychiatric: Yes: Alert, Oriented, Suicidal Ideation (denies), Other (withdrawn) Labs: CBC, BMP 03/30/19 06:05 03/30/19 06:05 INR, PTT INR 0.93 (0.83-1.09) 03/28/19 21:20 Problem List - Problems (1) Suicide attempt Assessment/Plan: - placed on 1:1, constant observation - psych follow up - safety/fall precaution - further management as per ICU Code(s): T14.91XA - SUICIDE ATTEMPT, INITIAL ENCOUNTER (2) Asthma Assessment/Plan: ALBUTEROL Code(s): J45.909 - UNSPECIFIED ASTHMA, UNCOMPLICATED (3) Bipolar 1 disorder Assessment/Plan: PSYCH ON BOARD RESUME MEDS IF OK WITH PSYCH Code(s): F31.9 - BIPOLAR DISORDER, UNSPECIFIED (4) Diabetes mellitus, insulin dependent (IDDM), uncontrolled Assessment/Plan: RESTART INSULIN ENDO Code(s): E10.65 - TYPE 1 DIABETES MELLITUS WITH HYPERGLYCEMIA Qualifiers: Glycemic state: with hyperglycemia Qualified Code(s): E10.65 - Type 1 diabetes mellitus with hyperglycemia (5) Seizure Assessment/Plan: - Divalproex *ER* 500 mg PO BID - Phenytoin Na Extended 100 mg PO BID - monitor for acute seizure activity, safety precaution Code(s): R56.9 - UNSPECIFIED CONVULSIONS
--- NOTE | 2019-03-30 09:42 | EKG ---
Test Reason : Blood Pressure : / mmHG Vent. Rate : 086 BPM Atrial Rate : 086 BPM P-R Int : 172 ms QRS Dur : 090 ms QT Int : 368 ms P-R-T Axes : 045 041 043 degrees QTc Int : 440 ms NORMAL SINUS RHYTHM NORMAL ECG WHEN COMPARED WITH ECG OF 29-MAR-2019 14:03, NO SIGNIFICANT CHANGE WAS FOUND Confirmed by GEE SUAREZ MD ([id number]) on 03/30/2019 9:42:15 AM Referred By: JOHN VILLAFANA Confirmed By:GEE SUAREZ MD
[2019-03-30] MEDS ORDERED: FLUoxetine HCL 20 MG CAPSULE (FP) PO SCH (10:00)
[2019-03-30] MEDS ORDERED: PHENYTOIN NA EXTENDED 100 MG CAPSULE (FP) PO SCH (10:00)
--- NOTE | 2019-03-30 10:12 | PN ---
Progress Note (short form) - Note Progress Note: Patient seen for Psych re evaluation. vcase discussed with staff. She has been alert,stable and been eating,slept well. No reports of any suicidal thoughts or behaviour. not delusionla . Deniers any active suicidal plans. She [facility] [place] REC: 1) d/c 1:1. 2) discharge home when medically stable.
[2019-03-30] MEDS ORDERED: DIVALPROEX NA *ER* EXTEND REL 500 MG TABLET.SA (FP) PO SCH (11:00)
--- NOTE | 2019-03-30 11:10 | PN ---
Teaching Attending Note Name of Resident: Sonal Marley ATTENDING PHYSICIAN STATEMENT I saw and evaluated the patient. I reviewed the resident's note and discussed the case with the resident. I agree with the resident's findings and plan as documented. SUBJECTIVE: Patient seen and examined in the ICU. Awake and alert. Reports feeling overall better. Seen by Psychiatry and cleared for discharge home in the care of her mother. Intake & Output 03/27/19 03/28/19 03/29/19 03/30/19 23:59 23:59 23:59 23:59 Intake Total 2600 200 Output Total 4 Balance 2596 200 Weight 218 lb 221 lb 6.4 oz 221 lb 11.2 oz Last Vital Signs Temp Pulse Resp BP Pulse Ox 98.0 F 65 18 100/72 100 03/30/19 06:00 03/30/19 06:00 03/30/19 06:00 03/30/19 06:00 03/29/19 02:00 Active Medications Acetaminophen (Tylenol -) 650 mg PO Q6H PRN PRN Reason: PAIN LEVEL 1-5 Last Admin: 03/29/19 22:19 Dose: 650 mg Divalproex Sodium (Depakote *Er* -) 500 mg PO BID [facility] Fluoxetine HCl (Prozac -) 40 mg PO DAILY [facility] Insulin Aspart (Novolog Vial Sliding Scale -) 1 vial SQ ACHS [facility]; Protocol Last Admin: 03/30/19 06:41 Dose: 4 units Insulin Aspart (Novolog Mix 70/30 Vial) 10 units SQ BIDAC [facility] Melatonin (Melatonin) 3 mg PO HS PRN PRN Reason: INSOMNIA Phenytoin Sodium (Dilantin -) 100 mg PO BID [facility] Quetiapine Fumarate (Seroquel -) 100 mg PO HS [facility] Gen: Awake and alert, NAD Neuro: Awake and alert, non-focal HEENT: Neck supple, MMM Lungs: CTA CV: RRR, S1S2 Abd: Obese, soft, NT EXT: WWP Laboratory Results - last 24 hr 03/29/19 03/29/19 03/29/19 12:06 14:21 16:48 WBC RBC Hgb Hct MCV MCH MCHC RDW Plt Count MPV Sodium Potassium Chloride Carbon Dioxide Anion Gap BUN Creatinine Est GFR (CKD-EPI)AfAm Est GFR (CKD-EPI)NonAf POC Glucometer 283 249 270 Random Glucose Calcium Phosphorus Magnesium 03/29/19 03/30/19 03/30/19 21:23 06:05 06:05 WBC 6.3 RBC 4.12 Hgb 12.1 Hct 34.8 MCV 84.5 MCH 29.3 MCHC 34.7 RDW 12.8 Plt Count 191 MPV 8.1 Sodium 138 Potassium 4.2 Chloride 108 H Carbon Dioxide 26 Anion Gap 4 L BUN 13.6 Creatinine 0.5 L Est GFR (CKD-EPI)AfAm 153.73 Est GFR (CKD-EPI)NonAf 132.64 POC Glucometer 328 Random Glucose 344 H Calcium 8.2 L Phosphorus 3.5 Magnesium 1.8 03/30/19 06:12 WBC RBC Hgb Hct MCV MCH MCHC RDW Plt Count MPV Sodium Potassium Chloride Carbon Dioxide Anion Gap BUN Creatinine Est GFR (CKD-EPI)AfAm Est GFR (CKD-EPI)NonAf POC Glucometer 330 Random Glucose Calcium Phosphorus Magnesium Assessment/Plan Ploysubstance Overdose: Seroquel, Insulin, and Prozac IDDM Chronic pancreatitis Seizure DO Hypothyroidism Meds per Psych Glycemic control OOB to chair Floor Dr Galindo
[2019-03-30] MEDS ORDERED: PT OWN MED DRAWER 7, Y5N ONE (11:11)
--- NOTE | 2019-03-30 11:28 | PN ---
Progress Note, Physician History of Present Illness: Patient with no complaints over night, feeling better. Denies current SI or HI. - Current Medication List Current Medications: Active Medications Acetaminophen (Tylenol -) 650 mg PO Q6H PRN PRN Reason: PAIN LEVEL 1-5 Last Admin: 03/29/19 22:19 Dose: 650 mg Divalproex Sodium (Depakote *Er* -) 500 mg PO BID [facility] Fluoxetine HCl (Prozac -) 40 mg PO DAILY [facility] Last Admin: 03/30/19 11:12 Dose: 40 mg Insulin Aspart (Novolog Vial Sliding Scale -) 1 vial SQ ACHS [facility]; Protocol Last Admin: 03/30/19 06:41 Dose: 4 units Insulin Aspart (Novolog Mix 70/30 Vial) 10 units SQ BIDAC [facility] Melatonin (Melatonin) 3 mg PO HS PRN PRN Reason: INSOMNIA Phenytoin Sodium (Dilantin -) 100 mg PO BID [facility] Last Admin: 03/30/19 11:12 Dose: 100 mg Quetiapine Fumarate (Seroquel -) 100 mg PO HS [facility] - Objective Vital Signs: Vital Signs Temperature 98.0 F 03/30/19 06:00 Pulse Rate 72 03/30/19 08:00 Respiratory Rate 16 03/30/19 08:00 Blood Pressure 147/82 03/30/19 08:00 O2 Sat by Pulse Oximetry (%) 100 03/29/19 02:00 Constitutional: Yes: Well Nourished, No Distress, Calm Eyes: Yes: WNL HENT: Yes: WNL Neck: Yes: WNL Cardiovascular: Yes: WNL Respiratory: Yes: WNL Gastrointestinal: Yes: WNL Musculoskeletal: Yes: WNL Extremities: Yes: WNL Edema: No Integumentary: Yes: WNL Neurological: Yes: WNL, Alert, Oriented ...Motor Strength: WNL Psychiatric: Yes: WNL, Alert, Oriented. No: Agitated, Suicidal Ideation Labs: CBC, BMP 03/30/19 06:05 03/30/19 06:05 INR, PTT INR 0.93 (0.83-1.09) 03/28/19 21:20 Problem List - Problems (1) Bipolar 1 disorder Code(s): F31.9 - BIPOLAR DISORDER, UNSPECIFIED (2) Insulin overdose Code(s): T38.3X1A - POISONING BY INSULIN AND ORAL HYPOGLYCEMIC DRUGS, ACC, INIT Qualifiers: Encounter type: initial encounter (3) Intentional SSRI (selective serotonin reuptake inhibitor) overdose Code(s): T43.222A - POISN BY SLCTV SEROTONIN REUPTAKE INHIBTR, SELF-HARM, INIT Qualifiers: Encounter type: initial encounter Qualified Code(s): T43.222A - Poisoning by selective serotonin reuptake inhibitors, intentional self-harm, initial encounter (4) Suicide attempt Code(s): T14.91XA - SUICIDE ATTEMPT, INITIAL ENCOUNTER (5) Elevated glucose level Code(s): R73.09 - OTHER ABNORMAL GLUCOSE Impression/Plan Impression/Plan: Assessment and Plan: Neuro: - awake, alert, oriented Psychiatric: - denies current HI or SI - evaluated by psychiatry, believe that she is safe for outpatient follow up - will contact social work and f/u recs CV: - EKG without QTc prolongation - patient is normal sinus - ctm Respiratory: - hx of asthma - currently asymptomatic - ctm GI: - no current complaints - ctm Endo: - POC glucose >300 - patient receiving 70/30 mix of Novolog 10 units as well as sliding scale - goal glucose <200, >100 - ctm Patient planned to send to Med/Surg. Visit type - Emergency Visit Emergency Visit: Yes ED Registration Date: 03/28/19 Care time: The patient presented to the Emergency Department on the above date and was hospitalized for further evaluation of their emergent condition. - New Patient This patient is new to me today: Yes Date on this admission: 03/30/19 - Critical Care Critical Care patient: No ATTENDING PHYSICIAN STATEMENT I saw and evaluated the patient. I reviewed the resident's note and discussed the case with the resident. I agree with the resident's findings and plan as documented. SUBJECTIVE: OBJECTIVE: ASSESSMENT AND PLAN:
[2019-03-30 12:46] VITALS: BP 101/75; PULSE 98; TEMP 98.4
--- NOTE | 2019-03-30 13:41 | DS ---
Physical Examination Vital Signs: Vital Signs Temperature 98.4 F 03/30/19 12:41 Pulse Rate 98 H 03/30/19 12:41 Respiratory Rate 18 03/30/19 12:41 Blood Pressure 101/75 03/30/19 12:41 O2 Sat by Pulse Oximetry (%) 100 03/29/19 02:00 Labs: CBC, BMP 03/30/19 06:05 03/30/19 06:05 Discharge Summary Problems reviewed: Yes Reason For Visit: ATTEMPTED SUICIDE INSULIN OVERDOSE Current Active Problems Asthma (Acute) Bipolar 1 disorder (Acute) CHF (congestive heart failure) (Acute) Depressed bipolar I disorder (Acute) Hypothyroid (Acute) Insulin overdose (Acute) Intentional SSRI (selective serotonin reuptake inhibitor) overdose (Acute) Suicide attempt (Acute) Condition: Stable - Instructions Diet, Activity, Other Instructions: monitor blood sugars 4 times a day see your doctor this week see your psychiatrist and therapist this week Referrals: Del Daigle [Primary Care Provider] - 1 Week Disposition: HOME - Home Medications Comprehensive Discharge Medication List: Ambulatory Orders Quetiapine Fumarate [Seroquel -] 100 tab PO HS 02/17/17 Divalproex *ER* [Depakote *ER* -] 500 mg PO BID 10/31/17 Albuterol Sulfate Inhaler - [Ventolin HFA Inhaler -] 2 inh PO Q4H PRN 02/17/18 Fluoxetine HCl [Prozac] 40 mg PO DAILY 08/30/18 Insulin Lispro Protamin/Lispro [Humalog Mix 75-25 Kwikpen] 0 unit SQ BID Budesonide/Formeterol Fumarate [SYMBICORT 160/4.5mcg -] 1 inh PO DAILY PRN 03/30 Metoclopramide HCl [Reglan] 5 mg PO TID 03/30/19 Pantoprazole Sodium [Protonix] 40 mg PO DAILY 03/30/19 levETIRAcetam [Keppra -] 500 mg PO BID 03/30/19
[2019-03-30 14:03] VITALS: BMI 33.5
--- NOTE | 2019-03-30 15:20 | EKG ---
Test Reason : Blood Pressure : / mmHG Vent. Rate : 069 BPM Atrial Rate : 069 BPM P-R Int : 180 ms QRS Dur : 088 ms QT Int : 408 ms P-R-T Axes : 055 050 035 degrees QTc Int : 437 ms NORMAL SINUS RHYTHM NORMAL ECG WHEN COMPARED WITH ECG OF 29-MAR-2019 20:35, NO SIGNIFICANT CHANGE WAS FOUND Confirmed by GEE SUAREZ MD ([id number]) on 03/30/2019 3:20:03 PM Referred By: JOHN VILLAFANA Confirmed By:GEE SUAREZ MD
[2019-03-30] MEDS ORDERED: INSULIN (NOVOLOG MIX 70/30) 100 UNITS/ML MDV SQ SCH (16:30)
--- NOTE | 2019-03-30 18:31 | CONSULT ---
Consult Consult Specialty:: endocrine Reason for Consultation:: dm uncontrolled - History of Present Illness History of Present Illness: advised follow up outpatient for cde and sensor for glucose testing - Past Medical History STOCK CHASER: Yes: Seizure Pulmonary: Yes: Asthma Gastrointestinal: Yes: Diverticulosis, Pancreatitis (recurring abdominal pain hospitalizations with elevated lipases and normal amylases attributed to pancreatitis) Hepatobiliary: Yes: Other (fatty liver) ...LMP: 05/07/18 ...: No Psych: Yes: Anxiety, Bipolar Endocrine: Yes: Diabetes Mellitus (poorly controlled), Hypothyroidism - Past Surgical History Past Surgical History: Yes: Colonoscopy, Upper Endoscopy - Alcohol/Substance Use Hx Alcohol Use: No History of Substance Use: reports: None - Smoking History Smoking history: Current every day smoker Have you smoked in the past 12 months: No Aproximately how many cigarettes per day: 20 If you are a former smoker, when did you quit?: 2011 - Social History Usual Living Arrangement: With Parent ADL: Independent Occupation: unemployed History of Recent Travel: No Home Medications - Allergies Allergies/Adverse Reactions: Allergies Allergy/AdvReac Type Severity Reaction Status Date / Time mushroom Allergy Verified 03/09/19 19:30 No Known Drug Allergies Allergy Verified 03/09/19 19:30 nut - unspecified Allergy Verified 03/09/19 19:30 peach Allergy Verified 03/09/19 19:30 tomato Allergy Verified 03/09/19 19:30 SEAFOOD Allergy Severe ANAPHYLAXIS Uncoded 03/09/19 19:30 - Home Medications Home Medications: Ambulatory Orders Quetiapine Fumarate [Seroquel -] 100 tab PO HS 02/17/17 Divalproex *ER* [Depakote *ER* -] 500 mg PO BID 10/31/17 Albuterol Sulfate Inhaler - [Ventolin HFA Inhaler -] 2 inh PO Q4H PRN 02/17/18 Fluoxetine HCl [Prozac] 40 mg PO DAILY 08/30/18 Insulin Lispro Protamin/Lispro [Humalog Mix 75-25 Kwikpen] 0 unit SQ BID Budesonide/Formeterol Fumarate [SYMBICORT 160/4.5mcg -] 1 inh PO DAILY PRN 03/30 Metoclopramide HCl [Reglan] 5 mg PO TID 03/30/19 Pantoprazole Sodium [Protonix] 40 mg PO DAILY 03/30/19 levETIRAcetam [Keppra -] 500 mg PO BID 03/30/19 Physical Exam Vital Signs: Vital Signs Temperature 98.4 F 03/30/19 12:41 Pulse Rate 98 H 03/30/19 12:41 Respiratory Rate 18 03/30/19 12:41 Blood Pressure 101/75 03/30/19 12:41 O2 Sat by Pulse Oximetry (%) 100 03/29/19 02:00 Labs: CBC, BMP 03/30/19 06:05 03/30/19 06:05 Assessment/Plan plan: outpatient follow up bgm qid and continue novolog 70/30 doses given instruction for consult outpatient
[2019-03-30] MEDS ORDERED: QUEtiapine FUMARATE 100 MG TABLET (FP) PO SCH ×2 (22:00)
== END 2019-03-30 14:45 | disposition home or self-care (01) | DRG 812 ==
LOC: JER 20:03 → JERBED 22:41 → JICU 03-29 02:04
PROVIDERS: ADMIT Family Medicine; ATTEND Family Medicine
DX: T38.3X2A Poisoning by insulin and oral hypoglycemic [antidiabetic] drugs, intentional self-harm, initial encounter (principal); F31.9 Bipolar disorder, unspecified; I50.9 Heart failure, unspecified; K86.1 Other chronic pancreatitis; E10.65 Type 1 diabetes mellitus with hyperglycemia; E10.649 Type 1 diabetes mellitus with hypoglycemia without coma; T43.222A Poisoning by selective serotonin reuptake inhibitors, intentional self-harm, initial encounter; T43.592A Poisoning by other antipsychotics and neuroleptics, intentional self-harm, initial encounter; E03.9 Hypothyroidism, unspecified; J45.909 Unspecified asthma, uncomplicated; Z91.5 Personal history of self-harm; F17.210 Nicotine dependence, cigarettes, uncomplicated; Z79.4 Long term (current) use of insulin; G40.909 Epilepsy, unspecified, not intractable, without status epilepticus; Z91.14 Patient's other noncompliance with medication regimen; K76.0 Fatty (change of) liver, not elsewhere classified; E87.6 Hypokalemia; Y92.89 Other specified places as the place of occurrence of the external cause
CPT/HCPCS: 36415; 80048; 80053; 80185; 80307; 81003; 82962; 83690; 83735; 84100; 84703; 85025; 85027; 85610; 85730; 87081; 87086; 93005; 93010; 99284-25

== ENCOUNTER 2019-10-02 09:59 | Emergency (ER) | payer OTHER ==
[2019-10-02 10:05] VITALS: TEMP 97.9; BMI 30.1
[2019-10-02] MEDS ORDERED: SODIUM CHLORIDE 1,000 ML IV STA (10:33)
[2019-10-02] MEDS ORDERED: METOCLOPRAMIDE HCL INJECTION 10 MG/2 ML VIAL IVPB ONE (10:33)
[2019-10-02] MEDS ORDERED: FAMOTIDINE 20 MG/50 ML IVPB 20 MG/50 ML MG IVPB ONE ×2 (10:33→10:49)
[2019-10-02] MEDS ORDERED: CEFTRIAXONE 250 MG in DEXTROSE 5%-WATER - 50 ML IVPB ONE (10:35)
[2019-10-02] MEDS ORDERED: ACETAMINOPHEN 1000 MG/100 ML VIAL (NON FORMULARY) IVPB ONE (10:35)
[2019-10-02] MEDS ORDERED: ACETAMINOPHEN INJECTION 100 ML IVPB ONE (10:49)
[2019-10-02] MEDS ORDERED: METOCLOPRAMIDE HCL INJECTION 10 MG/2 ML VIAL ONE (10:49)
--- NOTE | 2019-10-02 10:50 | PDOC ---
History of Present Illness - General History Source: Patient Exam Limitations: Clinical Condition - History of Present Illness Initial Comments: 10/02/19 10:43 Patient with history of insulin-dependent diabetes presented with complaint of 3-day history of diarrhea, diffuse abdominal pain, vomiting and vaginal discharge with vaginal itching. Patient report diarrhea is gotten worse since April date reported last night after eating cake. Denies fever, shortness of breath, vaginal bleeding, urinary frequency, dysuria, burning with urination or urinary urgency. Patient has not taken anything for symptoms. Denies any other symptoms Is this a multiple visit Asthma Patient?: No Timing/Duration: other (3 days) <Mat Molina - Last Filed: 10/02/19 14:08> <Michael Santiago - Last Filed: 10/03/19 12:59> - General Chief Complaint: Pain Stated Complaint: Pain Time Seen by Provider: 10/02/19 10:08 Past History - Medical History Anemia: No Asthma: Yes Cancer: No Cardiac Disorders: Yes (RAPID HEARTBEAT HX) CVA: No COPD: No CHF: Yes Dementia: No Diabetes: (Yes; IDDM) GI Disorders: Yes (PANCREATITIS, DIVERTICULOSIS) Disorders: (YES; FREQUENT UTI'S) HTN: No Hypercholesterolemia: No Liver Disease: No Psychiatric Problems: Yes (anxiety, bipolar) Seizures: Yes Thyroid Disease: (Yes; HYPOTHYROIDISM, HYPOTENSION) - Surgical History Abdominal Surgery: No Appendectomy: No Cardiac Surgery: No Cholecystectomy: No Lung Surgery: No Neurologic Surgery: No Orthopedic Surgery: No - Reproductive History (#): 1 Para: 0 Cervical CA: No Dysfunctional Uterine Bleeding: No Ectopic : No Endometrial CA: No Polycystic Ovaries: No Therapeutic (s) & number: No Tubal Ligation: No Spontaneous : 1 - Immunization History Immunization Up to Date: Yes - Psycho-Social/Smoking History Smoking Status: Yes Smoking History: Never smoked Have you smoked in the past 12 months: No Number of Cigarettes Smoked Daily: 20 If you are a former smoker, when did you quit?: 2011 Information on smoking cessation initiated: No 'Breaking Loose' booklet given: 03/29/19 - Substance Abuse Hx (Audit-C & DAST Scrn) How often the patient has a drink containing alcohol: Never Score: In Men: 4 or > Positive; In Women: 3 or > Positive: 0 Screen Result (Pos requires Nsg. Audit-10AR): Negative In the last yr the pt used illegal drug/Rx for NonMed reason: No Score: Yes response is considered Positive: 0 Screen Result (Positive result requires Nsg. DAST-10): Negative <Mat Molina - Last Filed: 10/02/19 14:08> <Michael Santiago - Last Filed: 10/03/19 12:59> - Medical History Allergies/Adverse Reactions: Allergies Allergy/AdvReac Type Severity Reaction Status Date / Time mushroom Allergy Verified 10/02/19 10:05 No Known Drug Allergies Allergy Verified 10/02/19 10:05 nut - unspecified Allergy Verified 10/02/19 10:05 peach Allergy Verified 10/02/19 10:05 tomato Allergy Verified 10/02/19 10:05 SEAFOOD Allergy Severe ANAPHYLAXIS Uncoded 10/02/19 10:05 Home Medications: Ambulatory Orders Quetiapine Fumarate [Seroquel -] 200 tab PO HS 02/17/17 Divalproex *ER* [Depakote *ER* -] 500 mg PO BID 10/31/17 Albuterol Sulfate Inhaler - [Ventolin HFA Inhaler -] 2 inh PO Q4H PRN 02/17/18 Fluoxetine HCl [Prozac] 20 mg PO TID 08/30/18 Pantoprazole Sodium [Protonix] 40 mg PO DAILY 03/30/19 levETIRAcetam [Keppra -] 500 mg PO BID 03/30/19 Budesonide/Formeterol Fumarate [SYMBICORT 160/4.5mcg -] 1 inh IH DAILY 08/06/19 Insulin Lispro [Humalog Kwikpen U-100] 15 unit SQ TID 08/06/19 Linaclotide [Linzess] 72 mg PO DAILY 08/06/19 Fluconazole [Diflucan] 150 mg PO ONCE #1 tablet 10/02/19 Terconazole 1 applic VG BID 5 Days #1 tube 10/02/19 Review of Systems - Review of Systems Able to Perform ROS?: Yes Is the patient limited Afghan proficient: No Constitutional: No: Chills, Fever, Malaise HEENTM: No: Symptoms Reported, See HPI, Eye Pain, Blurred Vision, Tearing, Recent change in vision, Double Vision, Cataracts, Ear Pain, Ocular Prothesis, Ear Discharge, Nose Pain, Nose Congestion, Tinnitus, Nose Bleeding, Hearing Loss, Throat Pain, Throat Swelling, Mouth Pain, Dental Problems, Difficulty Swa llowing, Mouth Swelling, Other Respiratory: No: Symptoms reported, See HPI, Cough, Orthopnea, Shortness of Breath, SOB with Exertion, SOB at Rest, Stridor, Wheezing, Productive cough, Hemoptysis, Other Cardiac (ROS): No: Symptoms Reported, See HPI, Chest Pain, Edema, Irregular Heart Rate, Lightheadedness, Palpitations, Syncope, Chest Tightness, Other ABD/GI: Yes: Symptoms Reported, See HPI, Abd. Pain w/ defecation, Diarrhea, Nausea, Poor Appetite, Vomiting, Abdominal cramping. No: Blood Streaked Bowels, Constipated, Difficulty Swallowing, Poor Fluid Intake, Rectal Bleeding, Indigestion, Tarry Stools : Yes: Symptoms Reported, See HPI, Discharge. No: Burning, Dysuria, Frequency, Flank Pain, Urgency Musculoskeletal: No: Symptoms Reported, Back Pain Integumentary: No: Symptoms Reported Neurological: No: Symptoms reported, Headache, Dizziness All Other Systems: Reviewed and Negative <Mat Molina - Last Filed: 10/02/19 14:08> *Physical Exam - Vital Signs Last Vital Signs Temp Pulse Resp BP Pulse Ox 97.9 F 82 16 107/68 100 10/02/19 10:01 10/02/19 10:01 10/02/19 10:01 10/02/19 10:01 10/02/19 10:01 - Physical Exam 10/02/19 10:51 GENERAL: Well developed, well nourished. Awake and alert. No acute distress. HEENT: Normocephalic, atraumatic. PERRLA, EOMI. No conjunctival pallor. Sclera are non-icteric. Moist mucous membranes. Oropharynx is clear. NECK: Supple. Full ROM. CARDIOVASCULAR: Regular rate and rhythm. No murmurs, rubs, or gallops. Distal pulses are 2+ and symmetric. PULMONARY: No evidence of respiratory distress. Lungs clear to auscultation bilaterally. No wheezing, rales or rhonchi. ABDOMINAL: Soft. Subjective diffuse abdominal tenderness. Non-distended. No rebound or guarding. No organomegaly. Normoactive bowel sounds. MUSCULOSKELETAL Normal range of motion at all joints. : Moderate amount of light green discharge in vaginal vault. No visible lesions. No cervical motion tenderness. Diffuse erythematous satellite rash to bilateral vulvar area consistent with candidiasis SKIN: Warm and dry. Normal capillary refill. Diffuse vulvar candidiasis NEUROLOGICAL: Alert, awake, appropriate. Gait is normal without ataxia. PSYCHIATRIC: Cooperative. Good eye contact. Appropriate mood General Appearance: Yes: Nourished, Appropriately Dressed. No: Apparent Distress <Mat Molina Reyes - Last Filed: 10/02/19 14:08> - Vital Signs Last Vital Signs Temp Pulse Resp BP Pulse Ox 97.9 F 87 18 122/82 100 10/02/19 10:01 10/02/19 14:39 10/02/19 14:39 10/02/19 14:39 10/02/19 10:01 <Michael Santiago - Last Filed: 10/03/19 12:59> ED Treatment Course - LABORATORY CBC & Chemistry Diagram: 10/02/19 10:30 10/02/19 10:30 <Mat Molina Reyes - Last Filed: 10/02/19 14:08> - LABORATORY CBC & Chemistry Diagram: 10/02/19 10:30 10/02/19 10:30 - ADDITIONAL ORDERS Additional order review: 10/02/19 10:30 Gram Stain - Final Cervix Genital Culture - Preliminary NORMAL GENITAL MAURILIO ISOLATED 10/02/19 10:57 Urine Culture - Preliminary Urine - Urine Clean Catch 10/02/19 10/02/19 14:17 10:30 RBC 4.86 MCV 81.3 MCHC 33.1 RDW 13.4 MPV 8.7 Neutrophils % 70.7 D Lymphocytes % 24.7 D Monocytes % 3.4 L Eosinophils % 0.6 Basophils % 0.6 POC Glucometer 247 - Medications Given in the ED: ED Medications Discontinued Medications Generic Name Dose Route Start Last Admin Trade Name Freq PRN Reason Stop Dose Admin Acetaminophen 1,000 mg 10/02/19 10:35 10/02/19 11:05 Ofirmev Injection - IVPB 10/02/19 10:36 1,000 mg ONCE ONE Administration Azithromycin 1,000 mg 10/02/19 11:27 10/02/19 13:21 Zithromax PO 10/02/19 11:28 1,000 mg ONCE ONE Administration Famotidine/Sodium Chloride 20 mg in 50 mls @ 100 mls/hr 10/02/19 10:33 0 10/02/19 11:05 Pepcid 20 Mg Premixed Ivpb - IVPB 10/02/19 11:02 100 mls/hr ONCE ONE Administration Sodium Chloride 1,000 mls @ 1,000 mls/hr 10/02/19 10:33 10/02/19 11:06 Normal Saline - IV 10/02/19 11:32 1,000 mls/hr ASDIR STA Administration Ceftriaxone Sodium 250 mg/ 50 mls @ 100 mls/hr 10/02/19 10:35 10/02/19 13:20 Dextrose IVPB 10/02/19 11:04 100 mls/hr ONCE ONE Administration Lactated Ringer's 1,000 ml 10/02/19 13:04 10/02/19 13:20 Lactated Ringers Solution IV 10/02/19 13:05 1,000 ml ONCE ONE Administration Metoclopramide HCl 10 mg 10/02/19 10:33 10/02/19 11:05 Reglan Injection - IVPB 10/02/19 10:34 10 mg ONCE ONE Administration Metronidazole 2,000 mg 10/02/19 11:27 10/02/19 13:21 Flagyl - PO 10/02/19 11:28 2,000 mg NOW ONE Administration <Michael Santiago - Last Filed: 10/03/19 12:59> Medical Decision Making - Medical Decision Making 10/02/19 10:45 Patient with history of insulin-dependent diabetes presented with complaint of 3-day history of diarrhea, diffuse abdominal pain, vomiting and vaginal discharge with vaginal itching. Patient report diarrhea is gotten worse since April date reported last night after eating cake. Denies fever, shortness of breath, vaginal bleeding, urinary frequency, dysuria, burning with urination or urinary urgency. Patient has not taken anything for symptoms. Denies any other symptoms. LMP August 07, report has not had a menstrual period for 2 months now Exam significant for diffuse subjective moderate abdominal tenderness before even touching patient abdomen patient complain hurts so much. No guarding or rebound. Moderate amounts of green discharge in vaginal vault with no blood involved. No cervical motion tenderness. Cervical os closed. No visible lesion in the vagina. Diffuse erythematous rash to whole side of bilateral vulvar area without excoriation. Patient symptoms likely trichomonal vaginitis versus gonorrhea with vulvar candidiasis with gastroenteritis. Culture of vaginal discharge sent for GC and chlamydia and genital culture. UA, urine hCG and urine culture lab ordered. CBC and chemistry lab ordered. IV hydration 1 L normal saline and 1 g IV Tylenol ordered for abdominal pain diarrhea. Pepcid 20 mg IV ordered. Treat based on lab result 10/02/19 14:08 CBC shows no acute abnormality. Chemistry lab is normal. Abdominal and pelvic CT shows no acute abdominal pathology. UA shows small amount of WBC but with epithelial cells which is likely contaminated and will wait for urine culture. Patient given azithromycin 1 g for possible chlamydia and 2 g Flagyl for trichomonas. Patient given a second bag of lactated Ringer's 1 L. Patient stable for discharge with follow-up with [facility] and her PCP <Mat Molina - Last Filed: 10/02/19 14:08> - Medical Decision Making 10/03/19 12:59 I reviewed the case of the mid-level practitioner and was available for consultation while in the emergency department <Michael Santiago - Last Filed: 10/03/19 12:59> Discharge - Discharge Information Problems reviewed: Yes - Admission No <Mta Molina - Last Filed: 10/02/19 14:08> <Michael Santiago - Last Filed: 10/03/19 12:59> - Discharge Information Clinical Impression/Diagnosis: Vaginitis and vulvovaginitis Abdominal pain Qualifiers: Abdominal location: generalized Qualified Code(s): R10.84 - Generalized abdominal pain Nausea & vomiting Qualifiers: Vomiting type: unspecified Vomiting Intractability: non-intractable Qualified Code(s): R11.2 - Nausea with vomiting, unspecified Diabetes mellitus, insulin dependent (IDDM), uncontrolled Qualifiers: Glycemic state: with hyperglycemia Qualified Code(s): E10.65 - Type 1 diabetes mellitus with hyperglycemia Condition: Stable Disposition: HOME - Additional Discharge Information Prescriptions: Fluconazole [Diflucan] 150 mg PO ONCE #1 tablet Terconazole 1 applic VG BID 5 Days #1 tube - Follow up/Referral Referrals: Del Daigle [Primary Care Provider] - - Patient Discharge Instructions Patient Printed Discharge Instructions: DI for Vaginal Yeast Infection Additional Instructions: Your blood work is normal. Your abdominal CAT scan is normal and shows no acute abnormality. You were treated with antibiotics here today and you have been sent home on Diflucan for yeast infection. Increase fluid intake. Rest. Follow-up with your primary care and [facility] - Post Discharge Activity
[2019-10-02 11:04] LABS: BASO % 0.6 % (0-2.0); EOS % 0.6 % (0-4.5); HEMATOCRIT 39.5 % (32.4-45.2); HEMOGLOBIN 13.1 GM/dL (10.7-15.3); LYMPH % 24.7 % (8-40); MCH 26.9 pg (25.7-33.7); MCHC 33.1 g/dl (32.0-36.0); MEAN CELL VOLUME 81.3 fl (80-96); MEAN PLT VOLUME 8.7 fl (7.5-11.1); MONO % 3.4 % (3.8-10.2); NEUT % 70.7 % (42.8-82.8); PLATELET COUNT 207 K/MM3 (134-434); RBC 4.86 M/mm3 (3.60-5.2); RDW 13.4 % (11.6-15.6); WHITE BLOOD COUNT 8.5 K/mm3 (4.0-10.0)
[2019-10-02 11:16] LABS: HCG,QUALITATIVE URINE Negative
[2019-10-02 11:19] LABS: EPI CELLS >36 /uL (0-25.1); HYALINE CASTS 4 /uL (0-3.1); URINE APPEARANCE CLEAR; URINE BACTERIA 90 /uL (0-1359); URINE BILIRUBIN NEGATIVE (NEGATIVE); URINE COLOR YELLOW; URINE GLUCOSE (UA) 3+ (NEGATIVE); URINE KETONE TRACE (NEGATIVE); URINE LEUK ESTERASE 1+ (NEGATIVE); URINE NITRITE NEGATIVE (NEGATIVE); URINE PROTEIN NEGATIVE (NEGATIVE); URINE RBC 6 /uL (0-23.9); URINE UROBILINOGEN 0.2 mg/dL (0.2-1.0); URINE WBC 92 /uL (0-25.8)
[2019-10-02] MEDS ORDERED: metroNIDAZOLE 250 MG TABLET PO ONE (11:27)
[2019-10-02] MEDS ORDERED: AZITHROMYCIN 500 MG TABLET PO ONE (11:27)
[2019-10-02 11:30] LABS: ALBUMIN 3.7 g/dl (3.4-5.0); BILIRUBIN,TOTAL 0.6 mg/dL (0.2-1); CALCIUM 9.1 mg/dL (8.5-10.1); CREATININE 0.6 mg/dL (0.55-1.3); POTASSIUM 4.1 mmol/L (3.5-5.1); TOT PROT 8.1 g/dl (6.4-8.2)
[2019-10-02] MEDS ORDERED: LACTATED RINGERS SOLUTION 1000 ML INFUS.BAG IV ONE (13:04)
[2019-10-02 14:40] VITALS: BP 122/82; PULSE 87
== END 2019-10-02 14:40 | disposition home or self-care (01) ==
LOC: JER 09:59
PROC: 3E033GC Introduction of Other Therapeutic Substance into Peripheral Vein, Percutaneous Approach (ICD-10-PCS; principal; 2019-10-02)
DX: N76.0 Acute vaginitis (principal); E10.65 Type 1 diabetes mellitus with hyperglycemia; R11.2 Nausea with vomiting, unspecified
CPT/HCPCS: 36415; 74177-TC; 80053; 81003; 82962; 84703; 85025; 87070; 87086; 87205; 87491; 87591; 87661; 99285-25; J0131; Q9967

== ENCOUNTER 2020-05-05 20:04 | Emergency (ER) | payer OTHER ==
[2020-05-05 20:11] VITALS: TEMP 98; BMI 30.4
[2020-05-05] MEDS ORDERED: SODIUM CHLORIDE 1,000 ML IV STA (20:45)
[2020-05-05] MEDS ORDERED: SODIUM CHLORIDE 1,000 ML IV ONE (20:49)
[2020-05-05 21:57] LABS: VENOUS BASE EXCESS 2.2 mmol/L (-2-2); VENOUS PCO2 40.4 mmHg (38-52); VENOUS PH 7.435 (7.310-7.410)
[2020-05-05 22:13] LABS: INR 0.97 (0.83-1.09); PROTHROMBIN TIME (PATIENT) 11.9 SEC (9.7-13.0)
[2020-05-05 22:15] LABS: ACTIVATED PTT 23.9 SECONDS (25.2-36.5)
[2020-05-05 22:37] LABS: CHLORIDE 94 mmol/L (98-107); POTASSIUM 4.5 mmol/L (3.5-5.1); SODIUM 128 mmol/L (136-145)
[2020-05-05 22:40] LABS: ALBUMIN 3.6 g/dl (3.4-5.0); ANION GAP 7 MMOL/L (8-16); BLOOD UREA NITROGEN 17.1 mg/dL (7-18); CO2 27 mmol/L (21-32)
[2020-05-05 22:42] LABS: BASO % 0.7 % (0-2.0); EOS % 0.4 % (0-4.5); HEMATOCRIT 40.1 % (32.4-45.2); HEMOGLOBIN 13.5 GM/dL (10.7-15.3); LYMPH % 43.9 % (8-40); MCHC 33.7 g/dl (32.0-36.0); MEAN PLT VOLUME 8.5 fl (7.5-11.1); MONO % 9.9 % (3.8-10.2); NEUT % 45.1 % (42.8-82.8); PLATELET COUNT 191 K/MM3 (134-434); RBC 5.01 M/mm3 (3.60-5.2); RDW 15.1 % (11.6-15.6); WHITE BLOOD COUNT 6.4 K/mm3 (4.0-10.0)
[2020-05-05 22:43] LABS: CREATININE 0.7 mg/dL (0.55-1.3); SGOT/AST 11 U/L (15-37); SGPT/ALT 26 U/L (13-61)
[2020-05-05 22:45] LABS: BILIRUBIN,TOTAL 0.7 mg/dL (0.2-1); TOT PROT 8.4 g/dl (6.4-8.2)
[2020-05-05 22:46] LABS: ALK PHOS 119 U/L (45-117)
[2020-05-05 23:31] LABS: GLUCOSE,RANDOM 493 mg/dL (74-106)
[2020-05-05 23:32] LABS: HCG,QUALITATIVE URINE Negative
[2020-05-05 23:33] LABS: EPI CELLS 21 /uL (0-25.1); HYALINE CASTS 0 /uL (0-3.1); PH,URINE 6.5 (5.0-8.0); URINE APPEARANCE CLOUDY; URINE BACTERIA 651 /uL (0-1359); URINE BILIRUBIN NEGATIVE (NEGATIVE); URINE COLOR YELLOW; URINE GLUCOSE (UA) 3+ (NEGATIVE); URINE KETONE NEGATIVE (NEGATIVE); URINE LEUK ESTERASE TRACE (NEGATIVE); URINE NITRITE NEGATIVE (NEGATIVE); URINE PROTEIN NEGATIVE (NEGATIVE); URINE RBC 1579 /uL (0-23.9); URINE UROBILINOGEN 0.2 mg/dL (0.2-1.0); URINE WBC 144 /uL (0-25.8)
[2020-05-05] MEDS ORDERED: INSULIN (NOVOLOG) ASPART 100 UNITS/ML 10ML VIAL SQ ONE (23:34)
[2020-05-05] MEDS ORDERED: SODIUM CHLORIDE 0.9% 500 ML INFUS.BAG IV ONE (23:34)
[2020-05-05 23:36] LABS: METHADONE, UR NEGATIVE ng/ml (CUTOFF=300); OPIATES, URI NEGATIVE ng/ml (CUTOFF=300)
[2020-05-05 23:37] LABS: COCAINE, UR NEGATIVE ng/ml (CUTOFF=300); PHENCYCLIDINE,URINE NEGATIVE ng/ml (CUTOFF=25); URINE AMPHETAMINES NEGATIVE ng/ml (CUTOFF=500); URINE BARBITURATES NEGATIVE ng/ml (CUTOFF=200); URINE BENZODIAZEPINES NEGATIVE ng/ml (CUTOFF=200)
[2020-05-06] MEDS ORDERED: NITROFURANTOIN MACROCRYSTAL 50 MG CAPSULE (FP) PO SCH (02:00)
[2020-05-06] MEDS ORDERED: NITROFURANTOIN MACROCRYSTAL 50 MG CAPSULE (FP) ONE (02:09)
[2020-05-06 03:47] VITALS: BP 117/76; PULSE 103
== END 2020-05-06 03:56 | disposition short-term general hospital (02) ==
LOC: JER 20:04
PROC: 3E0337Z Introduction of Electrolytic and Water Balance Substance into Peripheral Vein, Percutaneous Approach (ICD-10-PCS; principal; 2020-05-05)
PROC: 3E0337Z Introduction of Electrolytic and Water Balance Substance into Peripheral Vein, Percutaneous Approach (ICD-10-PCS; 2020-05-05)
DX: K85.92 Acute pancreatitis with infected necrosis, unspecified (principal); N39.0 Urinary tract infection, site not specified; Z04.41 Encounter for examination and observation following alleged adult rape; R73.9 Hyperglycemia, unspecified
CPT/HCPCS: 36415; 74176-TC; 80048; 80053; 80307; 81003; 82010; 82550; 82803; 82962; 83690; 84484; 84703; 85025; 85610; 85730; 87086; 87491; 87591; 93005; 93010; 99285-25

== ENCOUNTER 2020-05-18 12:56 | Emergency (ER) | payer OTHER ==
[2020-05-18 13:00] VITALS: BP 103/76; PULSE 104; TEMP 97.5; BMI 32.6
[2020-05-18] MEDS ORDERED: ONDANSETRON 4 MG/2 ML VIAL IVPUSH ONE (14:02)
[2020-05-18] MEDS ORDERED: PANTOPRAZOLE SODIUM 40 MG VIAL IVPUSH ONE (14:02)
[2020-05-18] MEDS ORDERED: MAG HYDROX/AL HYDROX/SIMETH 30 ML UNIT-DOSE CUP PO ONE (14:02)
[2020-05-18] MEDS ORDERED: PANTOPRAZOLE SODIUM 40 MG/100 ML BAG IVPB ONE (15:23)
[2020-05-18] MEDS ORDERED: ONDANSETRON 4 MG/2 ML VIAL ONE (15:24)
[2020-05-18] MEDS ORDERED: MAG HYDROX/AL HYDROX/SIMETH 30 ML UNIT-DOSE CUP ONE (15:24)
[2020-05-18 15:58] LABS: BASO % 0.7 % (0-2.0); EOS % 0.3 % (0-4.5); HEMATOCRIT 34.8 % (32.4-45.2); HEMOGLOBIN 11.5 GM/dL (10.7-15.3); LYMPH % 38.2 % (8-40); MCH 26.2 pg (25.7-33.7); MEAN CELL VOLUME 79.6 fl (80-96); MEAN PLT VOLUME 8.6 fl (7.5-11.1); MONO % 6.7 % (3.8-10.2); NEUT % 54.1 % (42.8-82.8); PLATELET COUNT 257 K/MM3 (134-434); RBC 4.37 M/mm3 (3.60-5.2); RDW 14.7 % (11.6-15.6); WHITE BLOOD COUNT 7.8 K/mm3 (4.0-10.0)
[2020-05-18 16:17] LABS: EPI CELLS >36 /uL (0-25.1); HYALINE CASTS 26 /uL (0-3.1); URINE APPEARANCE CLOUDY; URINE BACTERIA 923 /uL (0-1359); URINE BILIRUBIN NEGATIVE (NEGATIVE); URINE COLOR DK YELLOW; URINE GLUCOSE (UA) NEGATIVE (NEGATIVE); URINE KETONE TRACE (NEGATIVE); URINE LEUK ESTERASE 1+ (NEGATIVE); URINE NITRITE NEGATIVE (NEGATIVE); URINE PROTEIN 2+ (NEGATIVE); URINE RBC 21 /uL (0-23.9); URINE WBC 208 /uL (0-25.8)
[2020-05-18 16:37] LABS: CHLORIDE 103 mmol/L (98-107); POTASSIUM 3.4 mmol/L (3.5-5.1); SODIUM 140 mmol/L (136-145)
[2020-05-18 16:40] LABS: ALBUMIN 3.3 g/dl (3.4-5.0); ANION GAP 7 MMOL/L (8-16); BLOOD UREA NITROGEN 10.7 mg/dL (7-18); CALCIUM 8.7 mg/dL (8.5-10.1); CO2 30 mmol/L (21-32); LIPASE 819 U/L (73-393)
[2020-05-18 16:41] LABS: GLUCOSE,RANDOM 138 mg/dL (74-106)
[2020-05-18 16:43] LABS: CREATININE 0.6 mg/dL (0.55-1.3); SGOT/AST 22 U/L (15-37); SGPT/ALT 21 U/L (13-61)
[2020-05-18 16:44] LABS: INR 0.97 (0.83-1.09)
[2020-05-18 16:45] LABS: BILIRUBIN,TOTAL 0.5 mg/dL (0.2-1); TOT PROT 7.6 g/dl (6.4-8.2)
[2020-05-18 16:48] LABS: N-TERMINAL BNP 17.2 pg/ml (5-125)
[2020-05-18 16:55] LABS: ALK PHOS 87 U/L (45-117)
== END 2020-05-18 17:17 | disposition home or self-care (01) ==
LOC: JER 12:56
PROC: 3E033NZ Introduction of Analgesics, Hypnotics, Sedatives into Peripheral Vein, Percutaneous Approach (ICD-10-PCS; principal; 2020-05-18)
PROC: 3E033GC Introduction of Other Therapeutic Substance into Peripheral Vein, Percutaneous Approach (ICD-10-PCS; 2020-05-18)
DX: R11.2 Nausea with vomiting, unspecified (principal)
CPT/HCPCS: 36415; 80053; 81003; 82550; 83690; 83880; 84484; 84702; 85025; 85610; 93005; 93010; 99285-25

== ENCOUNTER 2020-08-11 13:07 | Inpatient (IN) | payer OTHER ==
[2020-08-11] MEDS ORDERED: KETOROLAC TROMETHAMINE 30 MG/1 ML VIAL IM ONE (14:18)
[2020-08-11] MEDS ORDERED: morphine CARPU-JECT 4 MG/1 ML DISP.SYRIN IVPUSH ONE (16:30)
[2020-08-11] MEDS ORDERED: morphine SULFATE 4 MG/ML VIAL ONE (16:40)
[2020-08-11 16:48] LABS: BASO % 0.5 % (0-2.0); EOS % 0.1 % (0-4.5); HEMATOCRIT 32.8 % (32.4-45.2); HEMOGLOBIN 10.8 GM/dL (10.7-15.3); LYMPH % 12.1 % (8-40); MCH 25.6 pg (25.7-33.7); MEAN CELL VOLUME 77.7 fl (80-96); MEAN PLT VOLUME 8.9 fl (7.5-11.1); MONO % 5.9 % (3.8-10.2); NEUT % 81.4 % (42.8-82.8); PLATELET COUNT 177 K/MM3 (134-434); RBC 4.22 M/mm3 (3.60-5.2); RDW 15.4 % (11.6-15.6); WHITE BLOOD COUNT 15.1 K/mm3 (4.0-10.0)
[2020-08-11 17:09] LABS: ALBUMIN 3.3 g/dl (3.4-5.0); BLOOD UREA NITROGEN 9.8 mg/dL (7-18); CALCIUM 8.9 mg/dL (8.5-10.1)
[2020-08-11] MEDS ORDERED: INSULIN REGULAR HUMAN 100 UNITS/ML *VIAL SQ ONE (17:10)
[2020-08-11 17:13] LABS: CREATININE 0.7 mg/dL (0.55-1.3)
[2020-08-11 17:14] LABS: BILIRUBIN,TOTAL 1.3 mg/dL (0.2-1); TOT PROT 7.8 g/dl (6.4-8.2)
[2020-08-11] MEDS ORDERED: SODIUM CHLORIDE 0.9% 500 ML INFUS.BAG IV ONE (18:12)
[2020-08-11] MEDS ORDERED: ACETAMINOPHEN 500 MG TABLET (FP) PO ONE (18:46)
[2020-08-11] MEDS ORDERED: ALBUTEROL SO4 HFA INHALER IH PRN (20:15)
[2020-08-11] MEDS ORDERED: ACETAMINOPHEN 325 MG TABLET (FP) ONE (20:39)
[2020-08-11] MEDS ORDERED: VANCOMYCIN/WATER BAGS 1,250 MG/250 ML BAG IVPB SCH (20:45)
[2020-08-11] MEDS ORDERED: morphine SULFATE 4 MG/ML VIAL IVPUSH PRN (21:00)
[2020-08-11 21:37] LABS: ERYTHROCYTE SEDIMENTATION RATE 64 mm/hr (0-20)
[2020-08-11] MEDS ORDERED: levETIRAcetam 500 MG TABLET (FP) PO ONE (22:15)
[2020-08-11] MEDS ORDERED: DIVALPROEX SODIUM 500 MG TABLET E.C. ONE (22:15)
[2020-08-11] MEDS ORDERED: QUEtiapine FUMARATE 100 MG TABLET (FP) ONE (22:16)
[2020-08-11 22:28] LABS: EPI CELLS >36 /uL (0-25.1); HYALINE CASTS 3 /uL (0-3.1); PH,URINE 5.5 (5.0-8.0); URINE APPEARANCE TURBID; URINE BACTERIA 4463 /uL (0-1359); URINE BILIRUBIN NEGATIVE (NEGATIVE); URINE COLOR YELLOW; URINE GLUCOSE (UA) 3+ (NEGATIVE); URINE KETONE 3+ (NEGATIVE); URINE LEUK ESTERASE 1+ (NEGATIVE); URINE NITRITE NEGATIVE (NEGATIVE); URINE PROTEIN TRACE (NEGATIVE); URINE RBC 82 /uL (0-23.9); URINE UROBILINOGEN 0.2 mg/dL (0.2-1.0); URINE WBC 174 /uL (0-25.8)
[2020-08-11 22:29] LABS: HCG,QUALITATIVE URINE Negative
[2020-08-11] MEDS: levETIRAcetam 500 MG TABLET (FP) PO SCH (22:37)
[2020-08-11] MEDS: QUEtiapine FUMARATE 100 MG TABLET (FP) PO SCH (22:37)
[2020-08-11] MEDS: FLUoxetine HCL 20 MG CAPSULE PO SCH (22:37)
[2020-08-11] MEDS: DIVALPROEX NA *ER* EXTEND REL 500 MG TABLET.SA (FP) PO SCH (22:37)
[2020-08-11] MEDS: BUDESONIDE/FORMETEROL FUMARATE 160/4.5 mcg INHALER IH SCH (22:38)
[2020-08-12] MEDS: SODIUM CHLORIDE 1,000 ML IV SCH ×2 (00:34→23:25)
[2020-08-12] MEDS: FLUoxetine HCL 20 MG CAPSULE PO SCH ×3 (06:06→22:45)
[2020-08-12 07:26] LABS: BASO % 0.4 % (0-2.0); EOS % 0.4 % (0-4.5); HEMOGLOBIN 10.8 GM/dL (10.7-15.3); LYMPH % 26.1 % (8-40); MCH 25.9 pg (25.7-33.7); MCHC 33.7 g/dl (32.0-36.0); MEAN PLT VOLUME 8.5 fl (7.5-11.1); MONO % 6.7 % (3.8-10.2); NEUT % 66.4 % (42.8-82.8); PLATELET COUNT 154 K/MM3 (134-434); RBC 4.15 M/mm3 (3.60-5.2); RDW 15.6 % (11.6-15.6); WHITE BLOOD COUNT 9.6 K/mm3 (4.0-10.0)
[2020-08-12 07:52] LABS: CHLORIDE 107 mmol/L (98-107); SODIUM 137 mmol/L (136-145)
[2020-08-12 08:00] LABS: ALBUMIN 2.7 g/dl (3.4-5.0); ANION GAP 9 MMOL/L (8-16); BLOOD UREA NITROGEN 9.9 mg/dL (7-18); CALCIUM 8.8 mg/dL (8.5-10.1); CO2 22 mmol/L (21-32)
[2020-08-12 08:01] LABS: GLUCOSE,RANDOM 288 mg/dL (74-106)
[2020-08-12 08:02] LABS: SGPT/ALT 8 U/L (13-61)
[2020-08-12 08:03] LABS: SGOT/AST < 3 U/L (15-37)
[2020-08-12 08:04] LABS: BILIRUBIN,TOTAL 0.8 mg/dL (0.2-1); CREATININE 0.5 mg/dL (0.55-1.3); TOT PROT 6.9 g/dl (6.4-8.2)
[2020-08-12 08:05] LABS: ALK PHOS 87 U/L (45-117)
[2020-08-12 08:06] LABS: SARS-CoV-2 NAA Not Detected (Not Detected)
[2020-08-12] MEDS ORDERED: BUDESONIDE/FORMETEROL FUMARATE 160/4.5 mcg INHALER IH SCH (10:00)
[2020-08-12] MEDS ORDERED: VANCOMYCIN/WATER BAGS 1,250 MG/250 ML BAG IVPB SCH (10:00)
[2020-08-12] MEDS: DIVALPROEX NA *ER* EXTEND REL 500 MG TABLET.SA (FP) PO SCH ×2 (10:04→22:46)
[2020-08-12] MEDS ORDERED: levETIRAcetam 500 MG TABLET (FP) PO ONE (10:16)
[2020-08-12] MEDS ORDERED: PANTOPRAZOLE 40 MG TABLET ONE (10:16)
[2020-08-12] MEDS ORDERED: ENOXAPARIN NA (PORCINE) 40 MG/0.4 ML DISP.SYRIN SQ ONE (10:16)
[2020-08-12] MEDS: ENOXAPARIN NA (PORCINE) 40 MG/0.4 ML DISP.SYRIN SQ SCH (10:20)
[2020-08-12] MEDS: levETIRAcetam 500 MG TABLET (FP) PO SCH ×2 (10:20→22:46)
[2020-08-12] MEDS: BUDESONIDE/FORMETEROL FUMARATE 160/4.5 mcg INHALER IH SCH ×2 (10:20→22:48)
[2020-08-12] MEDS: PANTOPRAZOLE 40 MG TABLET PO SCH (10:20)
[2020-08-12] MEDS ORDERED: morphine SULFATE 4 MG/ML VIAL ONE (14:36)
[2020-08-12] MEDS ORDERED: VANCOMYCIN/WATER 1,250 MG/250 ML BAG IVPB SCH (15:30)
[2020-08-12] MEDS ORDERED: VANCOMYCIN 1 GRAM (PRE-DOCKED) 1,000 MG/250 ML BAG IVPB ONE (16:15)
[2020-08-12] MEDS ORDERED: PIPERACILLIN/TAZOB 4.5 GM 4.5 GM/100 ML BAG IVPB ONE (16:15)
[2020-08-12] MEDS: PIPERACILLIN/TAZOB 4.5 GM 4.5 GM in DEXTROSE 5%-WATER 100 ML IVPB SCH ×2 (16:26→18:44)
[2020-08-12] MEDS: VANCOMYCIN/WATER BAGS 1,250 MG/250 ML BAG IVPB SCH (16:37)
[2020-08-12 17:52] VITALS: BMI 28.2
[2020-08-12] MEDS ORDERED: PIPERACILLIN/TAZOBACTAM 4.5 GM VIAL IVPB ONE (17:57)
[2020-08-12] MEDS ORDERED: DEXTROSE 5%-WATER 100 ML IVPB ONE (17:57)
[2020-08-12] MEDS: CLINDAMYCIN 600MG PREMIX IVPB 600 MG/50 ML BAG IVPB SCH (18:03)
[2020-08-12] MEDS ORDERED: ACETAMINOPHEN 1000 MG/100 ML VIAL (NON FORMULARY) IVPB ONE (18:22)
[2020-08-12] MEDS ORDERED: PT OWN MED DRAWER 7, Y5N ONE (21:09)
[2020-08-12] MEDS ORDERED: QUEtiapine FUMARATE 50 MG TABLET ONE (21:09)
[2020-08-12] MEDS: QUEtiapine FUMARATE 100 MG TABLET (FP) PO SCH (22:45)
[2020-08-13] MEDS ORDERED: PIPERACILLIN/TAZOBACTAM 4.5 GM VIAL IVPB ONE ×3 (01:11→17:45)
[2020-08-13] MEDS ORDERED: DEXTROSE 5%-WATER 100 ML IVPB ONE ×3 (01:11→17:46)
[2020-08-13] MEDS: CLINDAMYCIN 600MG PREMIX IVPB 600 MG/50 ML BAG IVPB SCH ×3 (01:14→17:41)
[2020-08-13] MEDS: PIPERACILLIN/TAZOB 4.5 GM 4.5 GM in DEXTROSE 5%-WATER 100 ML IVPB SCH ×3 (01:59→17:53)
[2020-08-13] MEDS ORDERED: PT OWN MED DRAWER 7, Y5N ONE ×5 (03:08→22:29)
[2020-08-13] MEDS: VANCOMYCIN/WATER BAGS 1,250 MG/250 ML BAG IVPB SCH ×2 (03:15→14:58)
[2020-08-13] MEDS: FLUoxetine HCL 20 MG CAPSULE PO SCH ×3 (05:51→22:34)
[2020-08-13 08:06] LABS: CHLORIDE 106 mmol/L (98-107); SODIUM 137 mmol/L (136-145)
[2020-08-13 08:09] LABS: ALBUMIN 2.5 g/dl (3.4-5.0); ANION GAP 10 MMOL/L (8-16); BLOOD UREA NITROGEN 4.3 mg/dL (7-18); CALCIUM 8.3 mg/dL (8.5-10.1); CO2 22 mmol/L (21-32)
[2020-08-13 08:10] LABS: GLUCOSE,RANDOM 219 mg/dL (74-106)
[2020-08-13 08:13] LABS: BASO % 0.5 % (0-2.0); CREATININE 0.4 mg/dL (0.55-1.3); EOS % 0.3 % (0-4.5); HEMATOCRIT 28.3 % (32.4-45.2); HEMOGLOBIN 9.7 GM/dL (10.7-15.3); LYMPH % 19.3 % (8-40); MCH 26.3 pg (25.7-33.7); MCHC 34.2 g/dl (32.0-36.0); MEAN CELL VOLUME 76.9 fl (80-96); MEAN PLT VOLUME 8.7 fl (7.5-11.1); MONO % 6.9 % (3.8-10.2); PLATELET COUNT 174 K/MM3 (134-434); RBC 3.68 M/mm3 (3.60-5.2); RDW 15.2 % (11.6-15.6); SGOT/AST < 3 U/L (15-37); SGPT/ALT 7 U/L (13-61); WHITE BLOOD COUNT 8.9 K/mm3 (4.0-10.0)
[2020-08-13 08:14] LABS: BILIRUBIN,TOTAL 0.9 mg/dL (0.2-1); TOT PROT 6.6 g/dl (6.4-8.2)
[2020-08-13 08:15] LABS: ALK PHOS 80 U/L (45-117)
[2020-08-13] MEDS: PANTOPRAZOLE 40 MG TABLET PO SCH (10:46)
[2020-08-13] MEDS: DIVALPROEX NA *ER* EXTEND REL 500 MG TABLET.SA (FP) PO SCH (10:46)
[2020-08-13] MEDS: BUDESONIDE/FORMETEROL FUMARATE 160/4.5 mcg INHALER IH SCH ×2 (10:46→22:42)
[2020-08-13] MEDS: levETIRAcetam 500 MG TABLET (FP) PO SCH (10:46)
[2020-08-13] MEDS: ENOXAPARIN NA (PORCINE) 40 MG/0.4 ML DISP.SYRIN SQ SCH (10:46)
[2020-08-13] MEDS: INSULIN (LEVEMIR) 100 UNITS/ML UNITS SQ SCH ×2 (13:41→22:32)
[2020-08-13] MEDS: PHENYTOIN NA EXTENDED 100 MG CAPSULE (FP) PO SCH ×2 (14:57→22:40)
[2020-08-13] MEDS: INSULIN SLIDING SCALE (NOVOLOG) 1 VIAL SQ SCH ×2 (17:43→22:32)
[2020-08-13] MEDS ORDERED: QUEtiapine FUMARATE 50 MG TABLET ONE (21:18)
[2020-08-13] MEDS ORDERED: INSULIN (NOVOLOG) ASPART 100 UNITS/ML 10ML VIAL ONE (22:30)
[2020-08-13] MEDS: ACETAMINOPHEN 325 MG TABLET (FP) PO PRN (22:33)
[2020-08-13] MEDS: QUEtiapine FUMARATE 100 MG TABLET (FP) PO SCH (22:34)
[2020-08-14] MEDS ORDERED: DEXTROSE 5%-WATER 100 ML IVPB ONE ×3 (01:45→17:19)
[2020-08-14] MEDS ORDERED: PIPERACILLIN/TAZOBACTAM 4.5 GM VIAL IVPB ONE ×3 (01:45→17:19)
[2020-08-14] MEDS: CLINDAMYCIN 600MG PREMIX IVPB 600 MG/50 ML BAG IVPB SCH ×2 (01:52→10:28)
[2020-08-14] MEDS: PIPERACILLIN/TAZOB 4.5 GM 4.5 GM in DEXTROSE 5%-WATER 100 ML IVPB SCH ×3 (02:57→17:40)
[2020-08-14] MEDS ORDERED: PT OWN MED DRAWER 7, Y5N ONE ×6 (04:33→20:48)
[2020-08-14] MEDS: VANCOMYCIN/WATER BAGS 1,250 MG/250 ML BAG IVPB SCH ×2 (04:35→16:20)
[2020-08-14] MEDS: FLUoxetine HCL 20 MG CAPSULE PO SCH ×3 (06:29→21:08)
[2020-08-14] MEDS: INSULIN SLIDING SCALE (NOVOLOG) 1 VIAL SQ SCH ×4 (06:38→21:16)
[2020-08-14] MEDS ORDERED: INSULIN (LEVEMIR) 100 UNITS/ML UNITS SQ SCH (07:00)
[2020-08-14] MEDS: PANTOPRAZOLE 40 MG TABLET PO SCH (10:27)
[2020-08-14] MEDS: PHENYTOIN NA EXTENDED 100 MG CAPSULE (FP) PO SCH ×2 (10:32→21:09)
[2020-08-14] MEDS: ENOXAPARIN NA (PORCINE) 40 MG/0.4 ML DISP.SYRIN SQ SCH (10:35)
[2020-08-14] MEDS: ACETAMINOPHEN 325 MG TABLET (FP) PO PRN ×2 (12:17→18:58)
[2020-08-14] MEDS: BUDESONIDE/FORMETEROL FUMARATE 160/4.5 mcg INHALER IH SCH ×2 (15:34→21:18)
[2020-08-14] MEDS ORDERED: QUEtiapine FUMARATE 50 MG TABLET ONE (20:47)
[2020-08-14] MEDS ORDERED: INSULIN (NOVOLOG) ASPART 100 UNITS/ML 10ML VIAL ONE (21:04)
[2020-08-14] MEDS: QUEtiapine FUMARATE 100 MG TABLET (FP) PO SCH (21:09)
[2020-08-14] MEDS: INSULIN (LEVEMIR) 100 UNITS/ML UNITS SQ SCH (21:16)
[2020-08-15] MEDS ORDERED: DEXTROSE 5%-WATER 100 ML IVPB ONE ×3 (01:16→16:04)
[2020-08-15] MEDS ORDERED: PIPERACILLIN/TAZOBACTAM 4.5 GM VIAL IVPB ONE ×3 (01:16→16:04)
[2020-08-15] MEDS: PIPERACILLIN/TAZOB 4.5 GM 4.5 GM in DEXTROSE 5%-WATER 100 ML IVPB SCH ×3 (01:19→17:10)
[2020-08-15] MEDS ORDERED: PT OWN MED DRAWER 7, Y5N ONE ×3 (03:04→20:25)
[2020-08-15] MEDS: VANCOMYCIN/WATER BAGS 1,250 MG/250 ML BAG IVPB SCH (03:11)
[2020-08-15] MEDS: FLUoxetine HCL 20 MG CAPSULE PO SCH ×3 (05:46→22:11)
[2020-08-15] MEDS: INSULIN SLIDING SCALE (NOVOLOG) 1 VIAL SQ SCH ×4 (06:06→22:13)
[2020-08-15] MEDS: INSULIN (LEVEMIR) 100 UNITS/ML UNITS SQ SCH ×2 (06:07→22:12)
[2020-08-15] MEDS: PHENYTOIN NA EXTENDED 100 MG CAPSULE (FP) PO SCH ×2 (10:38→22:12)
[2020-08-15] MEDS: PANTOPRAZOLE 40 MG TABLET PO SCH (10:38)
[2020-08-15] MEDS: ENOXAPARIN NA (PORCINE) 40 MG/0.4 ML DISP.SYRIN SQ SCH (10:38)
[2020-08-15] MEDS: BUDESONIDE/FORMETEROL FUMARATE 160/4.5 mcg INHALER IH SCH ×2 (10:39→22:16)
[2020-08-15] MEDS: VANCOMYCIN 1 GRAM (PRE-DOCKED) 1,000 MG/250 ML BAG IVPB SCH (14:56)
[2020-08-15] MEDS: ACETAMINOPHEN 325 MG TABLET (FP) PO PRN (17:10)
[2020-08-15] MEDS: oxyCODONE HCL 5 MG TABLET PO PRN (19:03)
[2020-08-15] MEDS ORDERED: QUEtiapine FUMARATE 50 MG TABLET ONE (20:25)
[2020-08-15] MEDS ORDERED: INSULIN (NOVOLOG) ASPART 100 UNITS/ML 10ML VIAL ONE (22:10)
[2020-08-15] MEDS: QUEtiapine FUMARATE 100 MG TABLET (FP) PO SCH (22:11)
[2020-08-15] MEDS ORDERED: FAMOTIDINE 20 MG TABLET PO ONE (23:12)
[2020-08-15] MEDS ORDERED: levETIRAcetam 500 MG TABLET (FP) PO ONE (23:24)
[2020-08-16] MEDS ORDERED: INSULIN (LEVEMIR) 100 UNITS/ML UNITS SQ SCH (00:23)
[2020-08-16] MEDS ORDERED: MELATONIN 5 MG TABLETS PO ONE (00:28)
[2020-08-16 00:49] LABS: HEMATOCRIT 28.4 % (32.4-45.2); HEMOGLOBIN 9.4 GM/dL (10.7-15.3); MCH 25.6 pg (25.7-33.7); MCHC 33.2 g/dl (32.0-36.0); MEAN CELL VOLUME 77.1 fl (80-96); MEAN PLT VOLUME 8.1 fl (7.5-11.1); PLATELET COUNT 228 K/MM3 (134-434); RBC 3.68 M/mm3 (3.60-5.2); RDW 15.5 % (11.6-15.6)
[2020-08-16] MEDS ORDERED: PIPERACILLIN/TAZOBACTAM 4.5 GM VIAL IVPB ONE ×2 (00:59→09:13)
[2020-08-16] MEDS ORDERED: DEXTROSE 5%-WATER 100 ML IVPB ONE ×2 (00:59→09:13)
[2020-08-16] MEDS: PIPERACILLIN/TAZOB 4.5 GM 4.5 GM in DEXTROSE 5%-WATER 100 ML IVPB SCH ×2 (01:06→09:24)
[2020-08-16 01:09] LABS: MAGNESIUM 1.7 mg/dL (1.8-2.4)
[2020-08-16] MEDS: VANCOMYCIN 1 GRAM (PRE-DOCKED) 1,000 MG/250 ML BAG IVPB SCH ×2 (02:41→14:30)
[2020-08-16] MEDS ORDERED: MAGNESIUM SULF 50% (8.12 MEQ/2 ML-1 GM VIAL) IVPB ONE (04:25)
[2020-08-16] MEDS: FLUoxetine HCL 20 MG CAPSULE PO SCH ×3 (06:02→21:48)
[2020-08-16] MEDS: INSULIN SLIDING SCALE (NOVOLOG) 1 VIAL SQ SCH ×4 (06:04→21:51)
[2020-08-16 07:30] LABS: HEMOGLOBIN 9.5 GM/dL (10.7-15.3); MCH 25.7 pg (25.7-33.7); MCHC 33.8 g/dl (32.0-36.0); MEAN CELL VOLUME 75.9 fl (80-96); MEAN PLT VOLUME 8.1 fl (7.5-11.1); PLATELET COUNT 226 K/MM3 (134-434); RBC 3.68 M/mm3 (3.60-5.2); WHITE BLOOD COUNT 7.5 K/mm3 (4.0-10.0)
[2020-08-16 07:46] LABS: CALCIUM 8.6 mg/dL (8.5-10.1)
[2020-08-16 07:50] LABS: CREATININE 0.3 mg/dL (0.55-1.3)
[2020-08-16] MEDS ORDERED: PT OWN MED DRAWER 7, Y5N ONE ×4 (09:13→22:05)
[2020-08-16] MEDS: PHENYTOIN NA EXTENDED 100 MG CAPSULE (FP) PO SCH ×2 (09:23→21:48)
[2020-08-16] MEDS: PANTOPRAZOLE 40 MG TABLET PO SCH (09:23)
[2020-08-16] MEDS: BUDESONIDE/FORMETEROL FUMARATE 160/4.5 mcg INHALER IH SCH ×2 (09:26→22:16)
[2020-08-16] MEDS: ENOXAPARIN NA (PORCINE) 40 MG/0.4 ML DISP.SYRIN SQ SCH (09:33)
[2020-08-16] MEDS: oxyCODONE HCL 5 MG TABLET PO PRN ×2 (09:36→19:43)
[2020-08-16] MEDS ORDERED: D5-1/2NS+20 MEQ KCL - 20 MEQ/1,000 ML INFUS.BAG IV SCH (14:15)
[2020-08-16] MEDS ORDERED: AMPICILLIN NA/SULBACTAM NA 3 GM in SODIUM CHLORIDE 100 ML IVPB SCH (15:30)
[2020-08-16] MEDS ORDERED: ONDANSETRON 4 MG/2 ML VIAL IVPUSH PRN (15:49)
[2020-08-16] MEDS ORDERED: PROMETHAZINE HCL 25 MG/1 ML VIAL IVPUSH PRN (15:49)
[2020-08-16] MEDS ORDERED: PROPOFOL 20 ML ONE ×2 (15:53→16:38)
[2020-08-16] MEDS ORDERED: MIDAZOLAM HCL 2 MG/2 ML SINGLE DOSE VIAL ONE (15:53)
[2020-08-16] MEDS ORDERED: LACTATED RINGERS SOLUTION 1,000 ML IV SCH (16:00)
[2020-08-16] MEDS ORDERED: BUPIVACAINE HCL/PF 0.5% (5MG/ML) 10 ML VIAL ONE (16:00)
[2020-08-16] MEDS ORDERED: LIDOCAINE HCL 1%, 10 MG/ML (20ML VIAL) ONE (16:00)
[2020-08-16] MEDS ORDERED: AMPICILLIN NA/SULBACTAM NA 3 GM/100 ML PRE-DOCKED IVPB ONE (16:05)
[2020-08-16] MEDS ORDERED: LIDOCAINE HCL/PF 2% SDV 5ML VIAL ONE (16:22)
[2020-08-16] MEDS ORDERED: LIDOCAINE HCL 1%, 10 MG/ML (20ML VIAL) NR ONE (16:28)
[2020-08-16] MEDS ORDERED: BUPIVACAINE HCL/PF 0.5% (5 MG/ML) 30 ML VIAL IJ ONE (16:28)
[2020-08-16] MEDS ORDERED: KETOROLAC TROMETHAMINE 30 MG/1 ML VIAL ONE (16:31)
[2020-08-16] MEDS ORDERED: BACITRACIN 50,000 UNITS VIAL NR ONE (16:55)
[2020-08-16] MEDS ORDERED: ALBUTEROL SO4 HFA INHALER IH PRN (17:41)
[2020-08-16] MEDS ORDERED: ACETAMINOPHEN 325 MG TABLET (FP) ONE (17:46)
[2020-08-16] MEDS: ACETAMINOPHEN 325 MG TABLET (FP) PO PRN (17:49)
[2020-08-16] MEDS: LACTATED RINGERS SOLUTION 1,000 ML IV SCH ×2 (18:30→21:46)
[2020-08-16] MEDS: AMPICILLIN NA/SULBACTAM NA 3 GM in SODIUM CHLORIDE 100 ML IVPB SCH (21:47)
[2020-08-16] MEDS: DIVALPROEX NA *ER* EXTEND REL 500 MG TABLET.SA (FP) PO SCH (21:48)
[2020-08-16] MEDS: QUEtiapine FUMARATE 100 MG TABLET (FP) PO SCH (21:48)
[2020-08-16] MEDS: levETIRAcetam 500 MG TABLET (FP) PO SCH (21:51)
[2020-08-16] MEDS: INSULIN (LEVEMIR) 100 UNITS/ML UNITS SQ SCH (21:51)
[2020-08-17] MEDS: AMPICILLIN NA/SULBACTAM NA 3 GM in SODIUM CHLORIDE 100 ML IVPB SCH ×4 (03:22→21:11)
[2020-08-17] MEDS ORDERED: PT OWN MED DRAWER 7, Y5N ONE ×2 (06:27→21:04)
[2020-08-17] MEDS: INSULIN (LEVEMIR) 100 UNITS/ML UNITS SQ SCH ×2 (06:33→21:12)
[2020-08-17] MEDS: INSULIN SLIDING SCALE (NOVOLOG) 1 VIAL SQ SCH ×5 (06:33→23:45)
[2020-08-17] MEDS: FLUoxetine HCL 20 MG CAPSULE PO SCH ×3 (06:33→21:12)
[2020-08-17 08:03] LABS: BASO % 0.5 % (0-2.0); EOS % 0.4 % (0-4.5); HEMATOCRIT 28.2 % (32.4-45.2); HEMOGLOBIN 9.3 GM/dL (10.7-15.3); LYMPH % 24.7 % (8-40); MCH 25.4 pg (25.7-33.7); MCHC 33.2 g/dl (32.0-36.0); MEAN CELL VOLUME 76.6 fl (80-96); MEAN PLT VOLUME 7.9 fl (7.5-11.1); MONO % 8.5 % (3.8-10.2); NEUT % 65.9 % (42.8-82.8); PLATELET COUNT 229 K/MM3 (134-434); RBC 3.68 M/mm3 (3.60-5.2); RDW 15.2 % (11.6-15.6); WHITE BLOOD COUNT 7.4 K/mm3 (4.0-10.0)
[2020-08-17 08:16] LABS: CHLORIDE 109 mmol/L (98-107); SODIUM 143 mmol/L (136-145)
[2020-08-17 08:21] LABS: ALBUMIN 2.1 g/dl (3.4-5.0); ANION GAP 5 MMOL/L (8-16); BLOOD UREA NITROGEN 4.8 mg/dL (7-18); CALCIUM 8.5 mg/dL (8.5-10.1); CO2 28 mmol/L (21-32); GLUCOSE,RANDOM 153 mg/dL (74-106)
[2020-08-17 08:24] LABS: CREATININE 0.4 mg/dL (0.55-1.3); SGOT/AST 4 U/L (15-37); SGPT/ALT < 6 U/L (13-61)
[2020-08-17 08:26] LABS: BILIRUBIN,TOTAL 0.2 mg/dL (0.2-1); TOT PROT 6.3 g/dl (6.4-8.2)
[2020-08-17 08:27] LABS: ALK PHOS 68 U/L (45-117)
[2020-08-17] MEDS: POTASSIUM CHLORIDE TABS 20 MEQ TABLET.ER (FP) PO ONE ×2 (08:58→09:05)
[2020-08-17] MEDS: oxyCODONE HCL 5 MG TABLET PO PRN ×3 (08:58→21:13)
[2020-08-17] MEDS: ACETAMINOPHEN 325 MG TABLET (FP) PO PRN ×3 (08:59→21:13)
[2020-08-17] MEDS: PANTOPRAZOLE 40 MG TABLET PO SCH (08:59)
[2020-08-17] MEDS: levETIRAcetam 500 MG TABLET (FP) PO SCH ×2 (08:59→23:43)
[2020-08-17] MEDS: DIVALPROEX NA *ER* EXTEND REL 500 MG TABLET.SA (FP) PO SCH ×2 (08:59→23:42)
[2020-08-17] MEDS: BUDESONIDE/FORMETEROL FUMARATE 160/4.5 mcg INHALER IH SCH ×2 (09:00→23:00)
[2020-08-17] MEDS: ENOXAPARIN NA (PORCINE) 40 MG/0.4 ML DISP.SYRIN SQ SCH ×2 (09:00→09:05)
[2020-08-17] MEDS: PHENYTOIN NA EXTENDED 100 MG CAPSULE (FP) PO SCH ×2 (09:00→23:43)
[2020-08-17] MEDS ORDERED: QUEtiapine FUMARATE 50 MG TABLET ONE (21:03)
[2020-08-17] MEDS ORDERED: INSULIN (NOVOLOG) ASPART 100 UNITS/ML 10ML VIAL ONE (21:04)
[2020-08-17] MEDS: ONDANSETRON 4 MG/2 ML VIAL IVPUSH PRN (22:43)
[2020-08-17] MEDS: QUEtiapine FUMARATE 100 MG TABLET (FP) PO SCH (23:43)
[2020-08-18] MEDS ORDERED: PT OWN MED DRAWER 7, Y5N ONE ×4 (03:46→21:32)
[2020-08-18] MEDS: AMPICILLIN NA/SULBACTAM NA 3 GM in SODIUM CHLORIDE 100 ML IVPB SCH ×4 (03:50→21:39)
[2020-08-18] MEDS: INSULIN SLIDING SCALE (NOVOLOG) 1 VIAL SQ SCH ×6 (05:49→22:04)
[2020-08-18] MEDS: FLUoxetine HCL 20 MG CAPSULE PO SCH ×3 (06:39→21:38)
[2020-08-18] MEDS: INSULIN (LEVEMIR) 100 UNITS/ML UNITS SQ SCH ×2 (06:44→22:06)
[2020-08-18 07:19] LABS: CALCIUM 8.2 mg/dL (8.5-10.1)
[2020-08-18 07:20] LABS: BLOOD UREA NITROGEN 4.8 mg/dL (7-18)
[2020-08-18 07:23] LABS: CREATININE 0.3 mg/dL (0.55-1.3)
[2020-08-18] MEDS: oxyCODONE HCL 5 MG TABLET PO PRN ×3 (09:15→21:45)
[2020-08-18] MEDS: ACETAMINOPHEN 325 MG TABLET (FP) PO PRN ×2 (09:16→15:13)
[2020-08-18] MEDS: ENOXAPARIN NA (PORCINE) 40 MG/0.4 ML DISP.SYRIN SQ SCH (09:18)
[2020-08-18] MEDS: PHENYTOIN NA EXTENDED 100 MG CAPSULE (FP) PO SCH ×3 (10:00→22:03)
[2020-08-18] MEDS: levETIRAcetam 500 MG TABLET (FP) PO SCH ×3 (10:00→22:03)
[2020-08-18] MEDS: ONDANSETRON 4 MG/2 ML VIAL IVPUSH PRN (10:01)
[2020-08-18] MEDS: DIVALPROEX NA *ER* EXTEND REL 500 MG TABLET.SA (FP) PO SCH ×3 (10:01→22:03)
[2020-08-18] MEDS: PANTOPRAZOLE 40 MG TABLET PO SCH (10:01)
[2020-08-18] MEDS: BUDESONIDE/FORMETEROL FUMARATE 160/4.5 mcg INHALER IH SCH ×2 (10:21→22:07)
[2020-08-18] MEDS ORDERED: AMPICILLIN NA/SULBACTAM NA 3 GM VIAL ONE (21:30)
[2020-08-18] MEDS ORDERED: QUEtiapine FUMARATE 50 MG TABLET ONE (21:30)
[2020-08-18] MEDS ORDERED: SODIUM CHLORIDE 100 ML IVPB ONE (21:31)
[2020-08-18] MEDS: QUEtiapine FUMARATE 100 MG TABLET (FP) PO SCH (21:38)
[2020-08-19] MEDS ORDERED: SODIUM CHLORIDE 100 ML IVPB ONE ×4 (03:12→20:52)
[2020-08-19] MEDS ORDERED: AMPICILLIN NA/SULBACTAM NA 3 GM VIAL ONE ×4 (03:12→20:52)
[2020-08-19] MEDS: AMPICILLIN NA/SULBACTAM NA 3 GM in SODIUM CHLORIDE 100 ML IVPB SCH ×4 (03:14→21:36)
[2020-08-19] MEDS: FLUoxetine HCL 20 MG CAPSULE PO SCH ×3 (05:42→21:38)
[2020-08-19] MEDS: INSULIN SLIDING SCALE (NOVOLOG) 1 VIAL SQ SCH ×4 (06:23→22:28)
[2020-08-19] MEDS: INSULIN (LEVEMIR) 100 UNITS/ML UNITS SQ SCH ×2 (07:30→22:28)
[2020-08-19] MEDS ORDERED: PT OWN MED DRAWER 7, Y5N ONE ×2 (08:48→20:53)
[2020-08-19] MEDS: levETIRAcetam 500 MG TABLET (FP) PO SCH ×2 (09:55→22:24)
[2020-08-19] MEDS: DIVALPROEX NA *ER* EXTEND REL 500 MG TABLET.SA (FP) PO SCH ×2 (09:55→22:24)
[2020-08-19] MEDS: ENOXAPARIN NA (PORCINE) 40 MG/0.4 ML DISP.SYRIN SQ SCH (09:55)
[2020-08-19] MEDS: PANTOPRAZOLE 40 MG TABLET PO SCH (09:55)
[2020-08-19] MEDS: PHENYTOIN NA EXTENDED 100 MG CAPSULE (FP) PO SCH ×2 (09:56→22:24)
[2020-08-19] MEDS: BUDESONIDE/FORMETEROL FUMARATE 160/4.5 mcg INHALER IH SCH ×2 (09:57→22:25)
[2020-08-19] MEDS: oxyCODONE HCL 5 MG TABLET PO PRN ×3 (10:06→21:37)
[2020-08-19] MEDS: ACETAMINOPHEN 325 MG TABLET (FP) PO PRN ×3 (10:08→21:37)
[2020-08-19] MEDS ORDERED: INSULIN (NOVOLOG) ASPART 100 UNITS/ML 10ML VIAL ONE (11:00)
[2020-08-19] MEDS ORDERED: QUEtiapine FUMARATE 50 MG TABLET ONE (20:51)
[2020-08-19] MEDS: QUEtiapine FUMARATE 100 MG TABLET (FP) PO SCH (22:25)
[2020-08-20] MEDS ORDERED: AMPICILLIN NA/SULBACTAM NA 3 GM VIAL ONE ×2 (03:26→08:51)
[2020-08-20] MEDS ORDERED: SODIUM CHLORIDE 100 ML IVPB ONE ×2 (03:27→08:51)
[2020-08-20] MEDS: AMPICILLIN NA/SULBACTAM NA 3 GM in SODIUM CHLORIDE 100 ML IVPB SCH ×2 (03:30→09:26)
[2020-08-20] MEDS ORDERED: PT OWN MED DRAWER 7, Y5N ONE ×3 (04:24→05:30)
[2020-08-20] MEDS: FLUoxetine HCL 20 MG CAPSULE PO SCH (06:19)
[2020-08-20] MEDS: INSULIN SLIDING SCALE (NOVOLOG) 1 VIAL SQ SCH ×2 (06:20→10:58)
[2020-08-20 06:34] VITALS: TEMP 98.7
[2020-08-20] MEDS: INSULIN (LEVEMIR) 100 UNITS/ML UNITS SQ SCH (07:21)
[2020-08-20] MEDS: oxyCODONE HCL 5 MG TABLET PO PRN (09:24)
[2020-08-20] MEDS: ACETAMINOPHEN 325 MG TABLET (FP) PO PRN (09:25)
[2020-08-20] MEDS: DIVALPROEX NA *ER* EXTEND REL 500 MG TABLET.SA (FP) PO SCH (09:26)
[2020-08-20] MEDS: PANTOPRAZOLE 40 MG TABLET PO SCH (09:26)
[2020-08-20] MEDS: BUDESONIDE/FORMETEROL FUMARATE 160/4.5 mcg INHALER IH SCH (09:27)
[2020-08-20] MEDS: ENOXAPARIN NA (PORCINE) 40 MG/0.4 ML DISP.SYRIN SQ SCH (09:27)
[2020-08-20 09:54] VITALS: BP 124/77; PULSE 74
[2020-08-20] MEDS: levETIRAcetam 500 MG TABLET (FP) PO SCH (10:54)
[2020-08-20] MEDS: PHENYTOIN NA EXTENDED 100 MG CAPSULE (FP) PO SCH (10:54)
[2020-08-20 12:35] LABS: ALBUMIN 2.2 g/dl (3.4-5.0); BLOOD UREA NITROGEN 4.9 mg/dL (7-18); CALCIUM 8.5 mg/dL (8.5-10.1)
[2020-08-20 12:37] LABS: CREATININE 0.5 mg/dL (0.55-1.3)
[2020-08-20 12:40] LABS: BILIRUBIN,TOTAL 0.2 mg/dL (0.2-1); TOT PROT 6.4 g/dl (6.4-8.2)
== END 2020-08-20 13:31 | DRG 180 ==
LOC: JER 13:07 → JERBED 19:33 → J7W 08-12 17:27
PROVIDERS: ADMIT Hospitalist; ATTEND Family Medicine
PROC: 0J9R0ZZ Drainage of Left Foot Subcutaneous Tissue and Fascia, Open Approach (ICD-10-PCS; principal; 2020-08-11)
PROC: 0HBNXZZ Excision of Left Foot Skin, External Approach (ICD-10-PCS; 2020-08-11)
PROC: 02HV33Z Insertion of Infusion Device into Superior Vena Cava, Percutaneous Approach (ICD-10-PCS; 2020-08-19)
PROC: B548ZZA Ultrasonography of Superior Vena Cava, Guidance (ICD-10-PCS; 2020-08-19)
DX: E10.52 Type 1 diabetes mellitus with diabetic peripheral angiopathy with gangrene (principal); F31.9 Bipolar disorder, unspecified; E03.9 Hypothyroidism, unspecified; J45.909 Unspecified asthma, uncomplicated; Z79.4 Long term (current) use of insulin; E10.65 Type 1 diabetes mellitus with hyperglycemia; E10.628 Type 1 diabetes mellitus with other skin complications; A48.0 Gas gangrene; G40.909 Epilepsy, unspecified, not intractable, without status epilepticus; Z91.11 Patient's noncompliance with dietary regimen; G43.909 Migraine, unspecified, not intractable, without status migrainosus; L02.612 Cutaneous abscess of left foot
CPT/HCPCS: 36415; 36569; 73610-TC-LT-FY; 73630-TC-LT; 73700-TC-RT; 73718-TC-LT; 77001-TC-FY; 80048; 80053; 80164; 80177; 81003; 82550; 82607; 82962; 83036; 83605; 83615; 83735; 84436; 84443; 84484; 84703; 85025; 85027; 85651; 86140; 87040; 87070; 87076; 87186; 87205; 93005; 93010; 93970-TC; 93971-TC; 94760; 97116-GP; 97161-GP; 99285-25; C1751; C9803; G0480; J0131; U0003; U0005

== ENCOUNTER 2020-12-23 03:14 | Emergency (ER) | payer SELFPAY ==
[2020-12-23 03:27] VITALS: BP 114/57; PULSE 105; TEMP 98.1; BMI 28.1
[2020-12-23 05:47] LABS: BASO % 1.1 % (0-2.0); EOS % 2.2 % (0-4.5); HEMATOCRIT 31.9 % (32.4-45.2); HEMOGLOBIN 10.8 GM/dL (10.7-15.3); LYMPH % 45.2 % (8-40); MCH 26.1 pg (25.7-33.7); MCHC 33.8 g/dl (32.0-36.0); MEAN CELL VOLUME 77.1 fl (80-96); MEAN PLT VOLUME 8.2 fl (7.5-11.1); MONO % 7.8 % (3.8-10.2); NEUT % 43.7 % (42.8-82.8); PLATELET COUNT 202 10^3/uL (134-434); RBC 4.14 M/mm3 (3.60-5.2); RDW 14.2 % (11.6-15.6); WHITE BLOOD COUNT 6.3 K/mm3 (4.0-10.0)
[2020-12-23 06:04] LABS: CHLORIDE 100 mmol/L (98-107); SODIUM 134 mmol/L (136-145)
[2020-12-23 06:06] LABS: CALCIUM 8.7 mg/dL (8.5-10.1)
[2020-12-23 06:07] LABS: ALBUMIN 3.4 g/dl (3.4-5.0); ANION GAP 6 MMOL/L (8-16); BLOOD UREA NITROGEN 10.9 mg/dL (7-18); CO2 28 mmol/L (21-32)
[2020-12-23 06:10] LABS: CREATININE 0.7 mg/dL (0.55-1.3); SGOT/AST 11 U/L (15-37); SGPT/ALT 17 U/L (13-61)
[2020-12-23 06:12] LABS: BILIRUBIN,TOTAL 0.4 mg/dL (0.2-1); TOT PROT 7.9 g/dl (6.4-8.2)
[2020-12-23 06:13] LABS: ALK PHOS 82 U/L (45-117)
[2020-12-23 06:14] LABS: GLUCOSE,RANDOM 326 mg/dL (74-106)
[2020-12-23] MEDS ORDERED: KETOROLAC TROMETHAMINE 30 MG/1 ML VIAL IVPUSH ONE (06:25)
[2020-12-23] MEDS ORDERED: KETOROLAC TROMETHAMINE 60 MG/2 ML VIAL ONE (06:45)
[2020-12-23 07:06] LABS: ERYTHROCYTE SEDIMENTATION RATE 81 mm/hr (0-20)
== END 2020-12-23 07:01 | disposition home or self-care (01) ==
LOC: JER 03:14
PROC: 3E0233Z Introduction of Anti-inflammatory into Muscle, Percutaneous Approach (ICD-10-PCS; principal; 2020-12-23)
DX: S91.302A Unspecified open wound, left foot, initial encounter (principal)
CPT/HCPCS: 36415; 73630-TC-LT; 80053; 85025; 85651; 86140; 87040; 99284-25

== ENCOUNTER 2020-12-25 01:45 | Emergency (ER) | payer SELFPAY ==
[2020-12-25 02:10] VITALS: BMI 30.1
[2020-12-25] MEDS ORDERED: VANCOMYCIN 1 GM in D5W (PRE-DOCKED) 1,000 MG/250 ML IVPB ONE (04:18)
[2020-12-25] MEDS ORDERED: ACETAMINOPHEN 1000 MG/100 ML VIAL (NON FORMULARY) IVPB ONE ×2 (04:18→11:21)
[2020-12-25] MEDS ORDERED: ACETAMINOPHEN INJECTION 100 ML IVPB ONE (04:21)
[2020-12-25] MEDS ORDERED: VANCOMYCIN 1 GRAM (PRE-DOCKED) 1,000 MG/250 ML BAG IVPB ONE (04:21)
[2020-12-25 05:01] LABS: BASO % 0.6 % (0-2.0); EOS % 1.2 % (0-4.5); HEMOGLOBIN 10.2 GM/dL (10.7-15.3); LYMPH % 39.5 % (8-40); MCH 26.7 pg (25.7-33.7); MCHC 34.2 g/dl (32.0-36.0); MEAN PLT VOLUME 8.5 fl (7.5-11.1); MONO % 7.5 % (3.8-10.2); NEUT % 51.2 % (42.8-82.8); PLATELET COUNT 165 10^3/uL (134-434); RBC 3.84 M/mm3 (3.60-5.2); RDW 14.1 % (11.6-15.6); WHITE BLOOD COUNT 6.3 K/mm3 (4.0-10.0)
[2020-12-25 05:22] LABS: CALCIUM 8.4 mg/dL (8.5-10.1)
[2020-12-25 05:23] LABS: BLOOD UREA NITROGEN 8.9 mg/dL (7-18)
[2020-12-25 05:26] LABS: CREATININE 0.6 mg/dL (0.55-1.3)
[2020-12-25 05:28] LABS: BILIRUBIN,TOTAL 0.5 mg/dL (0.2-1); TOT PROT 7.2 g/dl (6.4-8.2)
[2020-12-25] MEDS ORDERED: PHENYTOIN 50 MG TAB.CHEW PO ONE (05:29)
[2020-12-25] MEDS ORDERED: DIVALPROEX NA *ER* EXTEND REL 500 MG TABLET.SA (FP) PO ONE (05:29)
[2020-12-25] MEDS ORDERED: levETIRAcetam 500 MG TABLET (FP) PO ONE ×2 (05:29→05:36)
[2020-12-25] MEDS ORDERED: DALBAVANCIN HCL 1,500 MG in DEXTROSE 5%-WATER - 500 ML IVPB ONE (06:09)
[2020-12-25] MEDS ORDERED: ACETAMINOPHEN 325 MG TABLET (FP) ONE (14:06)
[2020-12-25] MEDS ORDERED: ACETAMINOPHEN 500 MG TABLET (FP) PO ONE (14:10)
[2020-12-25 15:08] VITALS: BP 93/66; TEMP 101.7
[2020-12-25 17:57] VITALS: PULSE 125
== END 2020-12-25 15:30 | disposition left against medical advice (07) ==
LOC: JER 01:45
PROC: 3E033GC Introduction of Other Therapeutic Substance into Peripheral Vein, Percutaneous Approach (ICD-10-PCS; principal; 2020-12-25)
DX: M79.89 Other specified soft tissue disorders (principal)
CPT/HCPCS: 36415; 73610-TC-RT-FY; 73630-TC-RT-FY; 80053; 85025; 87040; 93005; 93010; 99285-25; C9803; J0131; J0875; U0003; U0005

== ENCOUNTER 2022-08-07 22:34 | Emergency (ER) | payer OTHER ==
[2022-08-07 22:45] VITALS: RESP 18; TEMP 98.5; BMI 33.1
[2022-08-08 04:54] VITALS: BP 132/78; PULSE 102
== END 2022-08-08 05:05 | disposition short-term general hospital (02) ==
LOC: JER 22:34
DX: T74.21XA Adult sexual abuse, confirmed, initial encounter (principal); R10.2 Pelvic and perineal pain; Y04.8XXA Assault by other bodily force, initial encounter; Y93.89 Activity, other specified; Y92.830 Public park as the place of occurrence of the external cause
CPT/HCPCS: 99285-25

== ENCOUNTER 2022-08-09 18:04 | Inpatient (IN) | payer OTHER ==
[2022-08-09 21:39] LABS: BASO % 1.1 % (0-2.0); EOS % 0.9 % (0-4.5); HEMATOCRIT 24.4 % (32.4-45.2); HEMOGLOBIN 7.9 GM/dL (10.7-15.3); LYMPH % 35.8 % (8-40); MCH 21.8 pg (25.7-33.7); MCHC 32.4 g/dl (32.0-36.0); MEAN CELL VOLUME 67.4 fl (80-96); MEAN PLT VOLUME 8.2 fl (7.5-11.1); NEUT % 56.2 % (42.8-82.8); PLATELET COUNT 207 10^3/uL (134-434); RBC 3.62 M/mm3 (3.60-5.2); RDW 16.9 % (11.6-15.6); WHITE BLOOD COUNT 6.8 K/mm3 (4.0-10.0)
[2022-08-09 21:55] LABS: CALCIUM 8.9 mg/dL (8.5-10.1)
[2022-08-09 21:56] LABS: ALBUMIN 3.2 g/dl (3.4-5.0); BLOOD UREA NITROGEN 15.4 mg/dL (7-18)
[2022-08-09 21:59] LABS: CREATININE 0.7 mg/dL (0.55-1.3)
[2022-08-09 22:00] LABS: BILIRUBIN,TOTAL 0.4 mg/dL (0.2-1)
[2022-08-09 22:01] LABS: TOT PROT 7.5 g/dl (6.4-8.2)
[2022-08-09] MEDS ORDERED: VANCOMYCIN 1 GM in D5W (PRE-DOCKED) 1,000 MG/250 ML (RESTRICTED TO ID ONLY IVPB ONE (22:18)
[2022-08-09] MEDS ORDERED: PIPERACILLIN/TAZOB 4.5 GM 4.5 GM in DEXTROSE 5%-WATER 100 ML IVPB ONE (22:18)
[2022-08-09] MEDS ORDERED: PIPERACILLIN/TAZOB 4.5 GM 4.5 GM/100 ML BAG IVPB ONE (23:16)
[2022-08-09] MEDS ORDERED: VANCOMYCIN/WATER FOR INJ (PEG) 1,000 MG/200 ML BAG IVPB ONE (23:16)
[2022-08-09 23:18] LABS: ANISOCYTOSIS 1+; MACROCYTOSIS 0; PLATELET ESTIMATE NORMAL
[2022-08-10] MEDS ORDERED: diphenhydrAMINE HCL 25 MG CAPSULE (FP) PO ONE ×2 (01:04→01:42)
[2022-08-10] MEDS: ACETAMINOPHEN 325 MG TABLET (FP) PO PRN ×2 (01:40→16:57)
[2022-08-10] MEDS ORDERED: ACETAMINOPHEN 325 MG TABLET (FP) ONE (01:42)
[2022-08-10 03:28] VITALS: BMI 30.5
[2022-08-10] MEDS ORDERED: INSULIN (NOVOLOG) ASPART 100 UNITS/ML 10ML VIAL ONE ×4 (06:33→21:55)
[2022-08-10] MEDS: INSULIN SLIDING SCALE (NOVOLOG) 1 VIAL SQ SCH ×4 (06:34→22:01)
[2022-08-10] MEDS ORDERED: PIPERACILLIN/TAZOB 3.375 GM 3.375 GM in DEXTROSE 5%-WATER - 50 ML IVPB SCH (07:00)
[2022-08-10 09:01] LABS: BASO % 1.1 % (0-2.0); HEMATOCRIT 24.6 % (32.4-45.2); HEMOGLOBIN 8.2 GM/dL (10.7-15.3); LYMPH % 29.1 % (8-40); MCH 22.5 pg (25.7-33.7); MCHC 33.3 g/dl (32.0-36.0); MEAN CELL VOLUME 67.6 fl (80-96); MEAN PLT VOLUME 8.3 fl (7.5-11.1); MONO % 6.7 % (3.8-10.2); NEUT % 62.1 % (42.8-82.8); PLATELET COUNT 196 10^3/uL (134-434); RBC 3.64 M/mm3 (3.60-5.2); RDW 16.8 % (11.6-15.6); WHITE BLOOD COUNT 6.3 K/mm3 (4.0-10.0)
[2022-08-10 09:05] LABS: POTASSIUM 3.8 mmol/L (3.5-5.1)
[2022-08-10 09:18] LABS: BLOOD UREA NITROGEN 11.1 mg/dL (7-18)
[2022-08-10 09:21] LABS: CREATININE 0.6 mg/dL (0.55-1.3)
[2022-08-10] MEDS: PIPERACILLIN/TAZOB 3.375 GM 3.375 GM in DEXTROSE 5%-WATER - 50 ML IVPB SCH (11:28)
[2022-08-10 21:49] VITALS: RESP 20
[2022-08-10] MEDS ORDERED: traZODone HCL 50 MG TABLET (FP) PO SCH (22:00)
[2022-08-11] MEDS: INSULIN SLIDING SCALE (NOVOLOG) 1 VIAL SQ SCH ×2 (07:01→12:28)
[2022-08-11] MEDS ORDERED: INSULIN (NOVOLOG) ASPART 100 UNITS/ML 10ML VIAL ONE (12:23)
[2022-08-11] MEDS: ACETAMINOPHEN 325 MG TABLET (FP) PO PRN (12:28)
[2022-08-11 15:10] VITALS: BP 139/77; PULSE 66; TEMP 99.1
== END 2022-08-11 15:30 | disposition home or self-care (01) | DRG 380 ==
LOC: JERFT 18:04 → JER 18:04 → JERBED 22:19 → OBSVTOIN 23:43 → J8W 08-10 02:21
PROVIDERS: ADMIT Internal Medicine; ATTEND Family Medicine
DX: E10.621 Type 1 diabetes mellitus with foot ulcer (principal); G40.909 Epilepsy, unspecified, not intractable, without status epilepticus; K21.9 Gastro-esophageal reflux disease without esophagitis; F41.9 Anxiety disorder, unspecified; F31.9 Bipolar disorder, unspecified; E03.9 Hypothyroidism, unspecified; K57.90 Diverticulosis of intestine, part unspecified, without perforation or abscess without bleeding; J44.9 Chronic obstructive pulmonary disease, unspecified; K86.1 Other chronic pancreatitis; I50.9 Heart failure, unspecified; E10.65 Type 1 diabetes mellitus with hyperglycemia; L97.518 Non-pressure chronic ulcer of other part of right foot with other specified severity; L97.529 Non-pressure chronic ulcer of other part of left foot with unspecified severity; L27.0 Generalized skin eruption due to drugs and medicaments taken internally; L08.9 Local infection of the skin and subcutaneous tissue, unspecified; K76.0 Fatty (change of) liver, not elsewhere classified; E66.9 Obesity, unspecified; Z68.32 Body mass index [BMI] 32.0-32.9, adult
CPT/HCPCS: 0241U-QW; 36415; 73630-TC-LT; 73630-TC-RT-FY; 80048; 80053; 82962; 84703; 85025; 87040; 87070; 87186; 87205; 93005; 93010; 99285-25; G0378

== ENCOUNTER 2022-08-16 19:56 | Emergency (ER) | payer OTHER ==
[2022-08-16 20:01] VITALS: BMI 33.1
[2022-08-16] MEDS ORDERED: ACETAMINOPHEN 1000 MG/100 ML BAG IVPB ONE (20:45)
[2022-08-16] MEDS ORDERED: ACETAMINOPHEN INJECTION 100 ML IVPB ONE (21:07)
[2022-08-16 21:48] LABS: BASO % 0.7 % (0-2.0); EOS % 1.7 % (0-4.5); HEMOGLOBIN 7.7 GM/dL (10.7-15.3); LYMPH % 31.7 % (8-40); MEAN CELL VOLUME 68.8 fl (80-96); MONO % 5.7 % (3.8-10.2); NEUT % 60.2 % (42.8-82.8); PLATELET COUNT 179 10^3/uL (134-434); RBC 3.49 M/mm3 (3.60-5.2); RDW 18.9 % (11.6-15.6); WHITE BLOOD COUNT 6.3 K/mm3 (4.0-10.0)
[2022-08-16 21:54] LABS: INR 0.97 (0.83-1.09); PROTHROMBIN TIME (PATIENT) 11.3 SEC (9.7-13.0)
[2022-08-16 21:57] LABS: ACTIVATED PTT 19.5 SECONDS (25.2-36.5)
[2022-08-16 22:07] LABS: POTASSIUM 4.2 mmol/L (3.5-5.1)
[2022-08-16 22:09] LABS: BLOOD UREA NITROGEN 25.7 mg/dL (7-18)
[2022-08-16 22:12] LABS: CREATININE 0.9 mg/dL (0.55-1.3)
[2022-08-16 22:14] LABS: BILIRUBIN,TOTAL 0.3 mg/dL (0.2-1); TOT PROT 7.2 g/dl (6.4-8.2)
[2022-08-16 22:17] LABS: N-TERMINAL BNP 301.9 pg/ml (5-125)
[2022-08-16 22:21] LABS: ANISOCYTOSIS 2+; MACROCYTOSIS 0; OVALOCYTE 1+; TARGET CELLS 1+
[2022-08-16] MEDS ORDERED: SODIUM CHLORIDE 0.9% 1000 ML INFUS.BAG IV ONE (22:39)
[2022-08-16] MEDS ORDERED: INSULIN (NOVOLOG) ASPART 100 UNITS/ML 10ML VIAL SQ ONE (22:39)
[2022-08-16 23:12] LABS: VENOUS BASE EXCESS -3.9 mmol/L (-2-2); VENOUS O2 SATURATION 93.2 % (70-80); VENOUS PCO2 32.3 mmHg (38-52); VENOUS PH 7.414 (7.310-7.410)
[2022-08-17 01:11] VITALS: RESP 18; TEMP 97.3
[2022-08-17 05:42] VITALS: BP 149/71; PULSE 63
== END 2022-08-17 06:50 | disposition home or self-care (01) ==
LOC: JER 19:56
PROC: 3E0333Z Introduction of Anti-inflammatory into Peripheral Vein, Percutaneous Approach (ICD-10-PCS; principal; 2022-08-16)
PROC: 3E013VG Introduction of Insulin into Subcutaneous Tissue, Percutaneous Approach (ICD-10-PCS; 2022-08-16)
DX: E11.621 Type 2 diabetes mellitus with foot ulcer (principal); E11.622 Type 2 diabetes mellitus with other skin ulcer; R73.9 Hyperglycemia, unspecified
CPT/HCPCS: 0241U-QW; 36415; 71046-TC-FY; 80053; 82010; 82803; 82962; 83690; 83880; 84484; 84703; 85025; 85610; 85730; 93005; 93010; 99285-25

== ENCOUNTER 2022-08-25 18:16 | Emergency (ER) | payer OTHER ==
[2022-08-25 18:33] VITALS: RESP 18; TEMP 98.5; BMI 38.0
[2022-08-25] MEDS ORDERED: ACETAMINOPHEN 1000 MG/100 ML BAG IVPB ONE (18:46)
[2022-08-25 19:10] LABS: VENOUS BASE EXCESS -0.8 mmol/L (-2-2); VENOUS O2 SATURATION 77.3 % (70-80); VENOUS PCO2 43.7 mmHg (38-52); VENOUS PH 7.367 (7.310-7.410)
[2022-08-25 19:12] LABS: BASO % 0.7 % (0-2.0); EOS % 1.4 % (0-4.5); HEMATOCRIT 23.4 % (32.4-45.2); HEMOGLOBIN 7.4 GM/dL (10.7-15.3); LYMPH % 34.2 % (8-40); MCH 21.6 pg (25.7-33.7); MCHC 31.8 g/dl (32.0-36.0); MEAN CELL VOLUME 67.9 fl (80-96); MEAN PLT VOLUME 7.5 fl (7.5-11.1); MONO % 8.3 % (3.8-10.2); NEUT % 55.4 % (42.8-82.8); PLATELET COUNT 222 10^3/uL (134-434); RBC 3.45 M/mm3 (3.60-5.2); RDW 18.9 % (11.6-15.6)
[2022-08-25 19:30] LABS: CHLORIDE 102 mmol/L (98-107); POTASSIUM 4.8 mmol/L (3.5-5.1); SODIUM 136 mmol/L (136-145)
[2022-08-25 19:32] LABS: CALCIUM 9.3 mg/dL (8.5-10.1)
[2022-08-25 19:34] LABS: ALBUMIN 3.2 g/dl (3.4-5.0); ANION GAP 9 MMOL/L (8-16); BLOOD UREA NITROGEN 24.6 mg/dL (7-18); CO2 26 mmol/L (21-32)
[2022-08-25 19:35] LABS: MAGNESIUM 2.1 mg/dL (1.8-2.4); SGOT/AST 8 U/L (15-37)
[2022-08-25 19:37] LABS: BILIRUBIN,TOTAL 0.4 mg/dL (0.2-1); PHOSPHOROUS 4.2 mg/dL (2.5-4.9); SGPT/ALT 16 U/L (13-61); TOT PROT 7.5 g/dl (6.4-8.2)
[2022-08-25 19:38] LABS: ALK PHOS 104 U/L (45-117)
[2022-08-25 19:43] LABS: GLUCOSE,RANDOM 481 mg/dL (74-106)
[2022-08-25] MEDS ORDERED: SODIUM CHLORIDE 0.9% 500 ML INFUS.BAG IV ONE (19:55)
[2022-08-25] MEDS ORDERED: ACETAMINOPHEN INJECTION 100 ML IVPB ONE (20:00)
[2022-08-26 00:11] VITALS: BP 116/68; PULSE 78
== END 2022-08-26 00:11 | disposition short-term general hospital (02) ==
LOC: JER 18:16
PROC: 3E033NZ Introduction of Analgesics, Hypnotics, Sedatives into Peripheral Vein, Percutaneous Approach (ICD-10-PCS; principal; 2022-08-25)
DX: E10.9 Type 1 diabetes mellitus without complications (principal); H33.22 Serous retinal detachment, left eye; H53.9 Unspecified visual disturbance
CPT/HCPCS: 36415; 70450-TC; 76512; 80053; 82010; 82803; 82962; 83735; 84100; 84703; 85025; 93005; 93010; 99285-25

== ENCOUNTER 2022-10-16 22:47 | Emergency (ER) | payer OTHER ==
[2022-10-16 22:55] VITALS: TEMP 98.8; BMI 31.9
[2022-10-16] MEDS ORDERED: FAMOTIDINE 20 MG/50 ML IVPB 20 MG/50 ML MG IVPB ONE (23:10)
[2022-10-16] MEDS ORDERED: SODIUM CHLORIDE 0.9% 500 ML INFUS.BAG IV ONE (23:11)
[2022-10-16] MEDS ORDERED: DEXAMETHASONE SOD PHOSPHATE 10 MG/1 ML VIAL IVPUSH ONE (23:11)
[2022-10-16] MEDS ORDERED: DEXAMETHASONE SOD PHOSPHATE 10 MG/1 ML VIAL ONE (23:11)
[2022-10-17] MEDS ORDERED: INSULIN REGULAR HUMAN 100 UNITS/ML *VIAL SQ ONE (00:29)
[2022-10-17] MEDS ORDERED: INSULIN REGULAR HUMAN 100 UNITS/ML *VIAL ONE (01:13)
[2022-10-17 05:38] VITALS: BP 157/85; PULSE 68; RESP 16
== END 2022-10-17 08:05 | disposition home or self-care (01) ==
LOC: JER 22:47
PROC: 3E033GC Introduction of Other Therapeutic Substance into Peripheral Vein, Percutaneous Approach (ICD-10-PCS; principal; 2022-10-16)
PROC: 3E033GC Introduction of Other Therapeutic Substance into Peripheral Vein, Percutaneous Approach (ICD-10-PCS; 2022-10-16)
PROC: 3E033GC Introduction of Other Therapeutic Substance into Peripheral Vein, Percutaneous Approach (ICD-10-PCS; 2022-10-16)
DX: T78.40XA Allergy, unspecified, initial encounter (principal)
CPT/HCPCS: 82962; 99284-25; J1100